=== PATIENT | female | born 1955 | race Caucasian/White ===

== ENCOUNTER 2020-06-02 09:03 | Outpatient (CLI) | payer MEDICARE, MEDICAID, SELFPAY ==
--- NOTE | ~2020-06-02 | XR_ITS ---
XR hip RT min 2V 06/02/2020 09:53 Indication: Right hip pain and pelvic pain Procedure: 3 views right hip Comparison: 11/24/2017 Findings: Mild osteoarthritis of the right hip. Small loose bodies lateral to the joint space. Osteop enia. No fracture or traumatic malalignment. There is moderate lower lumbar spondylosis. Impression: 1: Mild osteoarthritis of the right hip. Reviewed, dictated and finalized at location B. Impression: 1: Mild osteoarthritis of the right hip.
--- NOTE | ~2020-06-02 | US_ITS ---
EXAMINATION: US soft tissue groin RT DATE: 06/02/2020 09:34 INDICATION: Right groin pain TECHNIQUE: Multiple grayscale and Doppler ultrasound images of the right groin were obtained. COMPARISON: None FINDINGS: No abnormal masses, fluid collections or pathologically enlarged lymphadenopathy at the right groin. The right common femoral and proximal superficial femoral artery and veins appeared normal on real-ti me imaging with no evident aneurysm. Normal appearance to the visualized musculature. IMPRESSION: 1. Normal ultrasound of the right groin. No etiology identified for right groin pain. Reviewed, dictated and finalized at location A.
== END 2020-06-02 09:04 | disposition home or self-care (01) ==
PROVIDERS: Visit Provider Physician Assistant
DX: R10.2 Pelvic and perineal pain (principal); M16.11 Unilateral primary osteoarthritis, right hip
CPT/HCPCS: 73502; 76882

== ENCOUNTER 2020-09-01 09:35 | Outpatient (CLI) | payer MEDICARE, MEDICAID, SELFPAY ==
--- NOTE | ~2020-09-01 | MR_ITS ---
EXAMINATION: MR lumbar spine wo con DATE: 09/01/2020 10:50 INDICATION: Chronic bilateral low back pain with bilateral sciatica. TECHNIQUE: Magnetic resonance imaging (MRI) of the lumbar spine was performed without intravenous con trast. Sequences included sagittal T2-weighted FSE, sagittal T2-weighted FS FSE, sagittal T1-weighted FSE, and axial T2-weighted FSE. COMPARISON: Lumbar spine MRI 10/04/2013 FINDINGS: There is 10 degrees dextroscoliosis of lumbar spine. There are chronic bilateral L3 pars de fects. There is 6 mm anterolisthesis of L3 on L4 and 4 mm anterolisthesis of L5 on S1. There are Schm orl's nodes at most levels. There is mildly decreased disc height at T11-T12 and severely decreased d isc height from L3-L4 through L5-S1. The distal spinal cord signal intensity is normal. The conus med ullaris is at L1. There is a 2.8 cm cyst in right kidney. The following disc levels are specifically discussed: T11-T12: There is a central extrusion. There is severe bilateral facet joint osteoarthritis. There is moderate bilateral neural foraminal stenosis. There is mild central canal stenosis with ventral inde ntation of the spinal cord. T12-L1: The disc does not extend beyond the endplate margin. There is mild bilateral facet joint oste oarthritis. There is no neural foraminal stenosis. There is no central canal stenosis. L1-L2: The disc does not extend beyond the endplate margin. There is mild right and moderate left fac et joint osteoarthritis. There is mild left neural foraminal stenosis. There is no central canal sten osis. L2-L3: The disc does not extend beyond the endplate margin. There is moderate bilateral facet joint o steoarthritis. There is no neural foraminal stenosis. There is no central canal stenosis. L3-L4: The disc is bulging and has an annular fissure. There is moderate bilateral facet joint osteoa rthritis. There is moderate bilateral neural foraminal stenosis. There is mild central canal stenosis . L4-L5: The disc is bulging and has an annular fissure. There is severe bilateral facet joint osteoart hritis. There is moderate bilateral neural foraminal stenosis. There is mild central canal stenosis. L5-S1: The disc is bulging and has an annular fissure. There is severe bilateral facet joint osteoart hritis. There is moderate bilateral neural foraminal stenosis. There is mild central canal stenosis. IMPRESSION: 1. Severe lumbar spondylosis. 2. Lumbar dextroscoliosis. 3. Chronic bilateral L3 pars defects with grade 1 anterolisthesis of L3 on L4. Reviewed, dictated and finalized at location A.
== END 2020-09-01 09:36 | disposition home or self-care (01) ==
PROVIDERS: Visit Provider Otolaryngology
DX: M54.42 Lumbago with sciatica, left side (principal); M54.41 Lumbago with sciatica, right side; G89.29 Other chronic pain; M47.816 Spondylosis without myelopathy or radiculopathy, lumbar region; M41.86 Other forms of scoliosis, lumbar region; M43.16 Spondylolisthesis, lumbar region
CPT/HCPCS: 72148

== ENCOUNTER 2021-01-22 10:25 | Outpatient (CLI) | payer MEDICARE, MEDICAID, SELFPAY ==
--- NOTE | ~2021-01-22 | XR_ITS ---
EXAMINATION: XR wrist RT min 3V DATE: 01/22/2021 10:43 INDICATION: Radial sided right wrist pain post injury TECHNIQUE: Posteroanterior, ulnar deviation, oblique, and lateral views of the right wrist were obtai piedad. COMPARISON: none FINDINGS: Bone alignment is normal. No fracture. Mild chondrocalcinosis at the ulnar side of the wrist joint. M ild polyarticular osteoarthritis at the triscaphe, first carpometacarpal, first metacarpophalangeal a nd first interphalangeal joints. Diffuse osteopenia. Soft tissues are unremarkable. IMPRESSION: 1. Mild polyarticular osteoarthritis at the right hand. No acute osseous abnormalities. Reviewed, dictated and finalized at location B. 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 Mild polyarticular osteoarthritis at the right hand. No acute osseous abnorm alities.
== END 2021-01-22 10:26 | disposition home or self-care (01) ==
PROVIDERS: Visit Provider Physician Assistant
DX: M19.041 Primary osteoarthritis, right hand (principal)
CPT/HCPCS: 73110

== ENCOUNTER 2021-03-15 10:06 | Outpatient (CLI) | payer MEDICARE, MEDICAID, SELFPAY ==
--- NOTE | ~2021-03-15 | MM_ITS ---
EXAMINATION: MM screening theresa BI w lupillo HISTORY: Screening mammogram TECHNIQUE: Craniocaudal and mediolateral oblique 3-D tomosynthesis images were obtained and synthetic 2-D images were generated. CAD analysis was submitted and interpreted. COMPARISON: 08/02/2017, 07/20/2016, 07/09/2015 bilateral digital screening mammogram examinations BREAST PARENCHYMAL COMPOSITION: There are scattered areas of fibroglandular density. FINDINGS: Bilateral benign calcifications. There is no evidence of suspicious mass, calcification, or architectural distortion to suggest malignancy in either breast. There has been no suspicious interv al change. IMPRESSION: 1. No mammographic evidence of malignancy. 2. Recommend routine screening mammography in one year. BI-RADS Category 2: Benign finding(s). Reviewed, dictated and finalized at location A.
== END 2021-03-15 10:07 | disposition home or self-care (01) ==
LOC: ANHIMG 10:09
PROVIDERS: Visit Provider Physician Assistant
DX: Z12.31 Encounter for screening mammogram for malignant neoplasm of breast (principal)
CPT/HCPCS: 77063; 77067

== ENCOUNTER 2021-06-10 10:53 | Emergency (ER) | payer MEDICARE, MEDICAID, SELFPAY ==
[2021-06-10 11:00] VITALS: BP 152/84; PULSE 92; RESP 15; TEMP 36.4; O2SAT 99
[2021-06-10 12:03] LABS: Basophils Percent Auto 0.7 % (0.2-1.2); Eosinophils Absolute Auto 0.1 K/mm3 (0-0.3); Eosinophils Percent Auto 1.6 % (0-4.4); Hematocrit 31.4 % (37.0-47.0); Hemoglobin 10.5 g/dL (12.0-15.0); Immature Granulocyte Absolute 0.03 K/mm3 (0.00-0.031); Immature Granulocyte Percent A 0.5 % (0-0.5); Lymphocytes Absolute Auto 1.61 K/mm3 (0.9-3.2); Lymphocytes Percent Auto 28.2 % (18.3-44.2); Mean Corpuscular HGB Conc 33.4 g/dl (32-36); Mean Corpuscular Hemoglobin 31.7 pg (26-34); Mean Corpuscular Volume 94.9 fl (80-100); Mean Platelet Volume 9.1 fl (7.4-10.4); Monocytes Absolute Auto 0.5 K/mm3 (0.1-0.6); Monocytes Percent Auto 8.4 % (2.6-8.5); Neutrophils Absolute Auto 3.5 K/mm3 (1.3-6.7); Neutrophils Percent Auto 60.6 % (45.5-73.1); Platelet Count Result 220 k/mm3 (150-375); Red Blood Count 3.31 M/mm3 (4.2-5.4); Red Cell Distribution Width 14.4 % (11.5-14.5); White Blood Count 5.7 K/mm3 (4.5-10.0)
[2021-06-10 12:05] VITALS: BP 146/95; PULSE 90; RESP 18; TEMP 36.5; O2SAT 99
[2021-06-10 12:16] LABS: Alanine Aminotransferase 17 U/L (4-35); Albumin Level 4.3 g/dL (3.5-5.1); Alkaline Phosphatase 62 U/L (38-126); Anion Gap 9 mmol/L (8-16); Aspartate Amino Transferase 27 U/L (14-36); Bilirubin,Total 0.4 mg/dL (0.2-1.3); Blood Urea Nitrogen 12 mg/dL (7-17); Calcium 9.2 mg/dL (8.4-10.2); Carbon Dioxide 23 mmol/L (22-30); Chloride 108 mmol/L (98-107); Estimated CRCL calculation 65 ml/min; Estimated Glomerular Filt Rate > 60; Glucose 133 mg/dL (65-110); Lipase 28 U/L (23-300); Potassium 4.2 mmol/L (3.4-5.0); Sodium 140 mmol/L (137-145)
[2021-06-10 12:32] LABS: Add Urine Microscopic? YES; Appearance Urine Clear (Clear); Bilirubin Urine Negative (Negative); Blood Urine Negative (Negative); Color Urine Yellow (Yellow); Glucose Urine UA Negative (Negative); Ketones Urine Negative (Negative); Leukocyte Esterase Ur Trace LEU/UL (Negative); Mucus Urine Rare /lpf; Nitrate Urine Negative (Negative); Protein Urine 1+ mg/dL (Negative); RBC Urine 0-2 /hpf (0-2); Specific Grav Ur 1.011 (1.001-1.035); Squamous Epithelial Cell Urine Few /hpf (Few); Urobilinogen Urine Negative mg/dL (<2.0); WBC Urine 0-3 /hpf
--- NOTE | 2021-06-10 13:08 | ED.ABDPAIN ---
HPI - Abdominal Pain General Chief Complaint: Abdominal Pain Stated Complaint: abd cramping, diarrhea Time Seen by Provider: 06/10/21 12:21 Source: patient Mode of arrival: ambulatory Limitations: no limitations History of Present Illness HPI narrative: 66-year-old female Patient complains about a 3-day history of crampy abdominal discomfort and diarrhea No bloody stools, no vomiting Today she is noted that stools are dark-colored but she has taken Pepto-Bismol Related Data Home Medications Medication Instructions Recorded Confirmed alprazolam 06/10/21 aspirin 81 mg PO DAILY 06/10/21 fluticasone propionate [Flonase] INTRANASAL 06/10/21 ipratropium-albuterol [Combivent INHALATION 06/10/21 Respimat] loratadine [Claritin] 10 mg PO DAILY 06/10/21 magnesium oxide mg 06/10/21 omeprazole 20 mg PO DAILY 06/10/21 pyridoxine (vitamin B6) 50 mg PO DAILY 06/10/21 rosuvastatin mg 06/10/21 trazodone 06/10/21 Allergies Allergy/AdvReac Type Severity Reaction Status Date / Time ciprofloxacin Allergy Unknown Rash Verified 06/10/21 12:01 Review of Systems Review of Systems: All systems reviewed & are unremarkable except as noted in HPI and below Constitutional: Constitutional: Reports no additional constitutional complaints, Denies chills, Reports fatigue, Denies fever(s), Denies headache(s) and Reports weakness Eyes: Eyes: Reports no additional eye complaints and Denies change in vision ENT: Denies headache(s) and Denies sore throat Cardiovascular: Cardiovascular: Denies chest pain and Denies dyspnea Respiratory: Respiratory: Denies cough and Denies dyspnea Gastrointestinal: Gastrointestinal: Reports abdominal pain, Reports diarrhea and Denies vomiting Genitourinary: Genitourinary: Denies urinary frequency and Denies dysuria Musculoskeletal: Musculoskeletal: Denies deformity, Denies arthralgias, Denies joint swelling and Denies numbness Integumentary/Breasts: Skin/Breast: Denies rash and Denies wounds Neurologic: Denies headache(s), Denies focal weakness and Denies numbness Psychiatric: Psychiatric: Reports no additional psychiatric complaints Endocrine: Endocrine: Reports no additional endocrine complaints Hematologic/Lymphatic: Hematologic/Lymphatic: Reports no additional hematologic/lymphatic complaints Allergic/Immunologic: Allergic/Immunologic: Reports no additional allergic/immunologic complaints [facility] Past Medical History Medical History (Updated 06/10/21 @ 13:10 by Spencer Scott MD) Anemia Anxiety Arthritis Asthma Bronchitis COPD (chronic obstructive pulmonary disease) DDD (degenerative disc disease) Depression Emphysema of lung GERD (gastroesophageal reflux disease) GI bleed Hepatitis C HTN (hypertension) Liver disease Ovarian cancer Right rotator cuff tear Skin cancer Surgical History Surgical History (Updated 12/13/19 @ 13:13 by Denisse Arroyo) H/O repair of right rotator cuff H/O: hysterectomy History of lumpectomy of left breast Hx of appendectomy Hx of tonsillectomy Family History Family History (Updated 07/17/14 @ 07:13 by DOCTOR UNKNOWN) Mother Family history of malignant neoplasm Family history of heart disease in male family member before age 55 Sibling Family history of malignant neoplasm of brain Father Family history of emphysema Social History Social History Smoking status: Heavy tobacco smoker Second hand tobacco smoke exposure: No Alcohol intake: current Gender identity (if verbalized by the patient): Female Exam Const: General: cooperative, no acute distress and alert Orientation/consciousness: patient oriented x3 (alert) HENMT: Head: normal to inspection, normocephalic and atraumatic Ears: external ears normal General nose exam: no epistaxis Eyes: Conjunctivae: conjunctivae normal EOM: EOMs intact bilaterally Neck: Neck: normal visual inspection, supple and no J
[2021-06-10 13:54] VITALS: BP 155/86; PULSE 88; RESP 16; O2SAT 100
[2021-06-10] MEDS: HEPARIN SODIUM LOCK FLUSH 500 UNITS/5 ML VIAL (13:59)
== END 2021-06-10 14:13 | disposition home or self-care (01) ==
PROVIDERS: Emergency Medicine; Emergency Provider Emergency Medicine
DX: R19.7 Diarrhea, unspecified (principal); D64.9 Anemia, unspecified; M19.90 Unspecified osteoarthritis, unspecified site; J43.9 Emphysema, unspecified; K21.9 Gastro-esophageal reflux disease without esophagitis; I10 Essential (primary) hypertension; K76.9 Liver disease, unspecified; F41.9 Anxiety disorder, unspecified; F32.9 Major depressive disorder, single episode, unspecified; F17.200 Nicotine dependence, unspecified, uncomplicated; Z85.828 Personal history of other malignant neoplasm of skin; Z85.43 Personal history of malignant neoplasm of ovary; Z86.19 Personal history of other infectious and parasitic diseases; Z79.82 Long term (current) use of aspirin
CPT/HCPCS: 36415; 80053; 81001; 83690; 85025; 99283; J1642

== ENCOUNTER 2021-07-19 01:17 | Day surgery (SDC) | payer MEDICARE, MEDICAID, SELFPAY ==
[2021-07-07 13:13] VITALS: BMI 22.7
--- NOTE | 2021-07-19 08:20 | WPDANESEPPF ---
Anes - Initial Pre Proc Eval Procedure: Operation Date: 07/19/21 12:00 Proposed Procedures p Colonoscopy - Mark Meyer MD Date/Time: 07/19/21 08:20 Surgeon: Mark Meyer MD Pre Op Diagnosis: rectal bleed Patient Data Age: 66 Gender: F Height: 1.68 m Weight: 64 kg Allergies Allergy/AdvReac Type Severity Reaction Status Date / Time ciprofloxacin Allergy Unknown Rash Verified 07/19/21 10:29 Home Medications Medication Instructions Recorded Confirmed Type alprazolam 1 mg PO TID 06/10/21 07/07/21 History aspirin 81 mg PO DAILY 06/10/21 07/07/21 History fluticasone propionate [Flonase] INTRANASAL PRN PRN 06/10/21 History ipratropium-albuterol [Combivent puff INHALATION DAILY 06/10/21 History Respimat] loratadine [Claritin] 10 mg PO DAILY 06/10/21 07/07/21 History magnesium oxide 400 mg PO BID 06/10/21 07/07/21 History omeprazole 20 mg PO DAILY 06/10/21 07/07/21 History pyridoxine (vitamin B6) 100 mg PO DAILY 06/10/21 07/07/21 History rosuvastatin 5 mg PO DAILY 06/10/21 07/07/21 History trazodone 50 mg PO DAILY 06/10/21 07/07/21 History Patient hx anesthesia problems: none Family hx anesthesia problems: none PMFSH Past Medical History Medical History (Updated 07/19/21 @ 08:21 by Hebert Casiano DO) Anemia Anxiety Arthritis Asthma Bronchitis COPD (chronic obstructive pulmonary disease) DDD (degenerative disc disease) Depression Emphysema of lung GERD (gastroesophageal reflux disease) GI bleed Hepatitis C treated 2007 HTN (hypertension) Liver disease Ovarian cancer Right rotator cuff tear Skin cancer Surgical History Surgical History (Updated 12/13/19 @ 13:13 by Denisse Arroyo) H/O repair of right rotator cuff H/O: hysterectomy History of lumpectomy of left breast Hx of appendectomy Hx of tonsillectomy Family History Family History (Updated 07/17/14 @ 07:13 by DOCTOR UNKNOWN) Mother Family history of malignant neoplasm Family history of heart disease in male family member before age 55 Sibling Family history of malignant neoplasm of brain Father Family history of emphysema Social History Social History Years smoked: 55 Smoking status: Current every day smoker Tobacco type: cigarettes Second hand tobacco smoke exposure: No Alcohol intake: current Alcohol use details: socially Substance use: current Substance use type: marijuana Other substance usage details: couple times a week Living arrangements: alone Gender identity (if verbalized by the patient): Female Spiritual care concerns: No Anes - Eval Final PreProcedure Day of Procedure 07/19/21 08:20 Patient weight: normal Heart: regular rate and rhythm Lungs: clear to auscultation and normal air movement Airway: Mallampati scale class II Neurological: alert and oriented Last oral intake: >/= 8 hours ASA classification: III Emergent: no Anesthetic plan: proceed Anesthesia type and monitoring: general GIVS and standard monitoring Informed Consent: The patient's anesthetic plan and its attendant risks and benefits were discussed with the patient/family/POA. Questions were solicited and answers provided to the satisfaction of the patient/family/POA.
[2021-07-19 10:31] VITALS: BP 144/79; PULSE 76; RESP 26; TEMP 36.3; O2SAT 98; BMI 22.8
[2021-07-19] MEDS: LACTATED RINGERS 1,000 ML 150 ML IV CONT (10:54)
--- NOTE | 2021-07-19 11:30 | PM.HPGS ---
History of Present Illness History of Present Illness Consent: Risks, benefits, and alternatives have been discussed and questions answered. Patient agrees to proceed with procedure. Chief complaint: rectal bleed Narrative: Myriam Martinez is a 66 year old female Referred for colonoscopy because of rectal bleeding Review of Systems Review of Systems: All systems reviewed & are unremarkable except as noted in HPI and below PMFSH Past Medical History Medical History Anemia Anxiety Arthritis Asthma Bronchitis COPD (chronic obstructive pulmonary disease) DDD (degenerative disc disease) Depression Emphysema of lung GERD (gastroesophageal reflux disease) GI bleed Hepatitis C treated 2007 HTN (hypertension) Liver disease Ovarian cancer Right rotator cuff tear Skin cancer Surgical History Surgical History H/O repair of right rotator cuff H/O: hysterectomy History of lumpectomy of left breast Hx of appendectomy Hx of tonsillectomy Family History Family History Mother Family history of malignant neoplasm Family history of heart disease in male family member before age 55 Sibling Family history of malignant neoplasm of brain Father Family history of emphysema Social History Social History Years smoked: 55 Smoking status: Current every day smoker Tobacco type: cigarettes Second hand tobacco smoke exposure: No Alcohol intake: current Alcohol use details: socially Substance use: current Substance use type: marijuana Other substance usage details: couple times a week Living arrangements: alone Gender identity (if verbalized by the patient): Female Spiritual care concerns: No Meds Home Medications and Allergies Home Medications Medication Instructions Recorded Confirmed Type alprazolam 1 mg PO TID 06/10/21 07/07/21 History aspirin 81 mg PO DAILY 06/10/21 07/07/21 History fluticasone propionate [Flonase] INTRANASAL PRN PRN 06/10/21 History ipratropium-albuterol [Combivent puff INHALATION DAILY 06/10/21 History Respimat] loratadine [Claritin] 10 mg PO DAILY 06/10/21 07/07/21 History magnesium oxide 400 mg PO BID 06/10/21 07/07/21 History omeprazole 20 mg PO DAILY 06/10/21 07/07/21 History pyridoxine (vitamin B6) 100 mg PO DAILY 06/10/21 07/07/21 History rosuvastatin 5 mg PO DAILY 06/10/21 07/07/21 History trazodone 50 mg PO DAILY 06/10/21 07/07/21 History Allergies Allergy/AdvReac Type Severity Reaction Status Date / Time ciprofloxacin Allergy Unknown Rash Verified 07/19/21 10:29 Vital Signs Vital Signs - 24 hr 07/19/21 10:31 Temperature 36.3 C L Pulse Rate 76 Respiratory Rate 26 H Blood Pressure 144/79 H Pulse Oximetry 98 Exam Const: General: alert Orientation/consciousness: patient oriented x3 Resp: Auscultation: clear to auscultation bilaterally Cardio: Rhythm: regular rhythm GI: GI Palp: Yes Soft to palpation and No Tenderness to palpation present (GI) Neuro: General: patient oriented x3 Assessment and Plan Assessment and plan (1) Blood in stool: Code(s): K92.1 - Melena Status: Acute Assessment and Plan: EGD with possible biopsy or dilatation or cautery. (2) Colon cancer screening: Code(s): Z12.11 - Encounter for screening for malignant neoplasm of colon Status: Acute Assessment and Plan: Colonoscopy with possible biopsy or polypectomy or cautery or injection of substances.
[2021-07-19 12:02] VITALS: BP 108/72; PULSE 74; RESP 18; O2SAT 97
[2021-07-19 12:12] VITALS: BP 125/78; PULSE 68; RESP 18; O2SAT 97
[2021-07-19 12:22] VITALS: BP 138/96; PULSE 74; RESP 22; O2SAT 100
[2021-07-19] MEDS: HEPARIN SODIUM LOCK FLUSH 500 UNITS/5 ML VIAL IV PUSH (12:54)
[2021-07-19] MEDS: CENTRAL LINE FLUSH 10 ML IV PUSH (12:55)
== END 2021-07-19 13:00 | disposition home or self-care (01) ==
PROVIDERS: PCP Physician Assistant; Visit Provider Internal Medicine Gastroenterology
PROC: 0DJD8ZZ Inspection of Lower Intestinal Tract, Via Natural or Artificial Opening Endoscopic (ICD-10-PCS; CPT 45378; principal; 2021-07-19 12:00)
DX: Z12.11 Encounter for screening for malignant neoplasm of colon (principal); K62.1 Rectal polyp; K92.1 Melena; D64.9 Anemia, unspecified; F41.8 Other specified anxiety disorders; J45.909 Unspecified asthma, uncomplicated; J44.9 Chronic obstructive pulmonary disease, unspecified; K21.9 Gastro-esophageal reflux disease without esophagitis; Z86.19 Personal history of other infectious and parasitic diseases; I10 Essential (primary) hypertension; F17.210 Nicotine dependence, cigarettes, uncomplicated; F12.90 Cannabis use, unspecified, uncomplicated; Z79.82 Long term (current) use of aspirin
CPT/HCPCS: 45380; 88305; J1642; J2704; J7120

== ENCOUNTER 2021-10-05 09:21 | Emergency (ER) | payer MEDICARE, MEDICAID, SELFPAY ==
--- NOTE | ~2021-10-05 | CT_ITS ---
EXAMINATION: CT abdomen pelvis w con DATE: 10/05/2021 10:47 INDICATION: Left-sided abdominal pain TECHNIQUE: Computed tomography (CT) of the abdomen and pelvis was performed with 100 cc Omnipaque 350 intravenous contrast. Automated exposure control and iterative reconstruction technique were employe d. Exam dose: 410.43 mGy-cm total exam DLP. COMPARISON: 09/30/2018 CT abdomen pelvis FINDINGS: Emphysematous changes are noted in the lower lung zones. No infiltrate or consolidation of the included lower lung zones. Normal heart size. There is trace pericardial fluid. No hepatic space-occupying mass lesion is detected. The gallbladder is present. No bile duct dilatati on. Normal splenic size. No pancreatic mass lesion, calcification or ductal dilatation. Normal morphology of the adrenal glands. 2.8 cm upper pole right renal cyst. No renal mass lesion or urinary tract calculus or hydroureteronep hrosis is detected. Normal caliber and atherosclerotic calcification of the abdominal aorta. No intraperitoneal or retrop eritoneal or pelvic mass lesion or adenopathy or ascites. There is minimal diverticulosis of left colon. There is no evidence of diverticulitis. No bowel obstr uction or intraperitoneal free air. There is grade 1 anterolisthesis at L3-4 with pars interarticularis defect at this level. There is severe degenerative disease at L3-4, L4-5 and L5-S1. Bilateral hip osteoarthritis. IMPRESSION: 2.8 cm right renal cyst Minimal left colon diverticulosis Emphysema Reviewed, dictated and finalized at Location A. Reviewed, dictated and finalized at location A. 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
--- NOTE | ~2021-10-05 | XR_ITS ---
EXAMINATION: XR foot RT min 3V, XR ankle RT min 3V EXAM DATE: 10/05/2021 10:55 INDICATION: Hyperflexion injury, initial encounter. Right foot, ankle pain laterally. TECHNIQUE: Right foot dorsoplantar, lateral and oblique projections obtained and reviewed. Right ank le frontal, lateral and oblique projections obtained and reviewed. There is no prior study for grace carlton. FINDINGS: Right metatarsal bones unremarkable. The right ankle mortise appears intact. There are n o acute fractures or dislocations identified. There is no subcutaneous gas. The soft tissue is unre markable. There are no radiopaque foreign bodies. Sequela from prior lateral malleolar avulsion in [facility]. There is mild polyarticular primary osteoarthritis. IMPRESSION: No acute osseous findings. Reviewed, dictated and finalized at location B. 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 IMPRESSION: No acute osseous findings.
[2021-10-05 09:25] VITALS: BP 145/106; PULSE 105; RESP 18; TEMP 36.4; O2SAT 100
[2021-10-05 09:40] LABS: Basophils Absolute Auto 0.1 K/mm3 (0.0-0.1); Basophils Percent Auto 0.5 % (0.2-1.2); Eosinophils Absolute Auto 0.2 K/mm3 (0-0.3); Eosinophils Percent Auto 1.5 % (0-4.4); Hemoglobin 12.4 g/dL (12.0-15.0); Immature Granulocyte Absolute 0.04 K/mm3 (0.00-0.031); Immature Granulocyte Percent A 0.4 % (0-0.5); Lymphocytes Absolute Auto 2.18 K/mm3 (0.9-3.2); Lymphocytes Percent Auto 22.5 % (18.3-44.2); Mean Corpuscular HGB Conc 33.5 g/dl (32-36); Mean Corpuscular Hemoglobin 31.1 pg (26-34); Mean Corpuscular Volume 92.7 fl (80-100); Mean Platelet Volume 9.2 fl (7.4-10.4); Monocytes Absolute Auto 0.6 K/mm3 (0.1-0.6); Monocytes Percent Auto 6.3 % (2.6-8.5); Neutrophils Absolute Auto 6.7 K/mm3 (1.3-6.7); Neutrophils Percent Auto 68.8 % (45.5-73.1); Platelet Count Result 213 k/mm3 (150-375); Red Blood Count 3.99 M/mm3 (4.2-5.4); Red Cell Distribution Width 13.2 % (11.5-14.5); White Blood Count 9.7 K/mm3 (4.5-10.0)
[2021-10-05 10:09] LABS: Alanine Aminotransferase 17 U/L (4-35); Albumin Level 4.8 g/dL (3.5-5.1); Alkaline Phosphatase 64 U/L (38-126); Anion Gap 10 mmol/L (8-16); Aspartate Amino Transferase 26 U/L (14-36); Bilirubin,Total 0.6 mg/dL (0.2-1.3); Blood Urea Nitrogen 14 mg/dL (7-17); Calcium 10.1 mg/dL (8.4-10.2); Carbon Dioxide 26 mmol/L (22-30); Chloride 106 mmol/L (98-107); Estimated CRCL calculation 65 ml/min; Estimated Glomerular Filt Rate > 60; Glucose 113 mg/dL (65-110); Lipase 22 U/L (23-300); Potassium 3.7 mmol/L (3.4-5.0); Sodium 142 mmol/L (137-145)
[2021-10-05 10:14] LABS: Add Urine Microscopic? YES; Appearance Urine Cloudy (Clear); Bilirubin Urine Negative (Negative); Blood Urine Negative (Negative); Color Urine Yellow (Yellow); Glucose Urine UA Negative (Negative); Ketones Urine Negative (Negative); Leukocyte Esterase Ur Trace LEU/UL (Negative); Mucus Urine Rare /lpf; Nitrate Urine Negative (Negative); Protein Urine 1+ mg/dL (Negative); Specific Grav Ur 1.017 (1.001-1.035); Squamous Epithelial Cell Urine Few /hpf (Few); Urobilinogen Urine Negative mg/dL (<2.0); WBC Urine 0-3 /hpf
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
== END 2021-10-05 12:27 | disposition home or self-care (01) ==
PROVIDERS: Emergency Provider Emergency Medicine; PCP Physician Assistant
DX: R10.12 Left upper quadrant pain (principal); S93.401A Sprain of unspecified ligament of right ankle, initial encounter; J43.9 Emphysema, unspecified; I10 Essential (primary) hypertension; K76.9 Liver disease, unspecified; M19.90 Unspecified osteoarthritis, unspecified site; K21.9 Gastro-esophageal reflux disease without esophagitis; F41.9 Anxiety disorder, unspecified; Z85.43 Personal history of malignant neoplasm of ovary; Z85.828 Personal history of other malignant neoplasm of skin; Z86.19 Personal history of other infectious and parasitic diseases; Z86.2 Personal history of diseases of the blood and blood-forming organs and certain disorders involving the immune mechanism; Z79.82 Long term (current) use of aspirin; F17.210 Nicotine dependence, cigarettes, uncomplicated; K57.90 Diverticulosis of intestine, part unspecified, without perforation or abscess without bleeding; V00.812A Wheelchair (powered) colliding with stationary object, initial encounter
CPT/HCPCS: 36415; 73610; 73630; 74177; 80053; 81001; 83690; 85025; 99284; Q9967

== ENCOUNTER 2021-10-18 12:07 | Inpatient (IN) | payer MEDICARE, MEDICAID, SELFPAY ==
--- NOTE | ~2021-10-18 | XR_ITS ---
EXAMINATION: XR chest 2V 10/18/2021 13:07 INDICATION: Cough and headache PROCEDURE: 2 view chest COMPARISON: Comparison to multiple prior studies sequentially, with oldest reviewed study dated 09/21. FINDINGS: The lungs are clear. The cardiomediastinal silhouette is within normal limits. There are no pleural effusions. There is no pneumothorax suspected. Port catheter tip in the SVC. IMPRESSION: 1: NO ACUTE CARDIOPULMONARY DISEASE. Reviewed, dictated and finalized at location B. M INVESTIGATOR
--- NOTE | ~2021-10-18 | CT_ITS ---
EXAMINATION: CT diagnostic chest wo con EXAM DATE: 10/20/2021 11:30 INDICATION: Positive blood culture. TECHNIQUE: Spiral CT of the chest without contrast. Axial, coronal and sagittal images of the chest were reviewed. Coronal maximum intensity pixel images of chest reviewed. The dose-length product ( DLP) for this examination was 160.61 mGy-cm. The exposure was tailored according to patient size (au to mA exposure control), and iterative reconstruction (ASIR) was used as additional dose reduction te chnique. Comparison is made to prior examination from 10/13/2017. FINDINGS: Small amount of right upper lobe medially located airspace disease which could be acute in fectious process, subsegmental bacterial pneumonia. There is some dependent atelectasis. Small perica rdial and bilateral pleural effusions. Tracheobronchial tree is patent. There is no mediastinal, h ilar or axillary lymphadenopathy. There is no pneumothorax. Heart normal in size. There is mode rate coronary arterial calcification, arterial sclerosis. Upper abdomen is unremarkable. There is moderate thoracic spondylosis without osteoblastic or osteolytic lesions identified. There is a lef t-sided portacatheter. IMPRESSION: 1. Right upper lobe medial subsegmental airspace disease which could be acute bacterial pneumonia. 2. Small pleural and pericardial effusions. 3. Moderate emphysema. Reviewed, dictated and finalized at location A. Y TECHNICIAN
--- NOTE | ~2021-10-18 | XR_ITS ---
EXAMINATION: XR chest PICC line INDICATION: PICC insertion TECHNIQUE: Portable AP view the chest is obtained at 1715 hours COMPARISON: 10/18/2021 FINDINGS: The left-sided Port-A-Cath has been removed. A left upper showed a PICC ends with its tip i n the brachiocephalic vein. The lungs are free of acute opacities. There is no pleural effusion or pn eumothorax. The cardiomediastinal silhouette is normal. IMPRESSION: 1. Right upper extremity PICC ending with its tip in the brachiocephalic vein. 2. Left-sided port removal. Reviewed, dictated and finalized at location A. OR GIS ANALYST
--- NOTE | ~2021-10-18 | CT_ITS ---
EXAMINATION: CT abdomen pelvis wo con EXAM DATE: 10/19/2021 10:19 INDICATION: Sepsis. TECHNIQUE: Spiral CT of the abdomen and pelvis was performed without contrast. Axial, coronal and s agittal images of the abdomen and pelvis were reviewed. The dose-length product (DLP) for this exami nation was 279.26 mGy-cm. The exposure was tailored according to patient size (auto mA exposure cont rol), and iterative reconstruction (ASIR) was used as additional dose reduction technique. Comparison is made to prior examination from 10/05/2021. FINDINGS: The liver, spleen, adrenal glands and pancreas are unremarkable. Gallbladder is unremarkab le. No biliary obstruction. There is no nephrolithiasis or hydronephrosis. There is a 3 cm cyst in the superior pole of the right kidney. Punctate left nephrolithiasis superior calyx. The uterus is n ot identified and has likely been surgically resected. The bladder is unremarkable. There is no ret roperitoneal or pelvic lymphadenopathy. Small supraumbilical fat-containing hernias. Appendix not identified, could've been resected. The stomach and small bowel are unremarkable. Ther e is expected amount of colonic stool. No free intraperitoneal gas. Trace pleural and pericardial effusions. Heart normal in size. Mild basilar emphysema. Moderate to severe disc disease L3-S1. The re are no osteoblastic or osteolytic lesions identified. IMPRESSION: 1. No acute intra-abdominal findings. 2. Punctate left nephrolithiasis. 3. Small supraumbilical fat-containing hernias. 4. Trace pleural or pericardial effusions. 5. Mild emphysema. Reviewed, dictated and finalized at location A. LE DISTRIBUTOR
--- NOTE | ~2021-10-18 | XR_ITS ---
EXAMINATION: XR chest PICC line EXAM DATE: 10/26/2021 17:53 INDICATION: PICC line insertion. TECHNIQUE: Portable AP frontal chest x-ray was obtained. Comparison is made to prior examination from 10/26/2021. FINDINGS: Interval insertion of a right-sided PICC line, extending down the SVC, expected orientation . The tip is poorly visualized but at least to the level of the herbie, adequate. Development of ill-defined density over the right lower lung zone, could be developing pneumonia or e alyce. Please clinically correlate. The cardiomediastinal silhouette is prominent but magnified on thi s AP technique. There is aortic arteriosclerosis. There is no pneumothorax suspected. There are no pl eural effusions. IMPRESSION: 1. PICC line in position. 2. Developing right lower lung zone airspace disease suspicious for pneumonia. Reviewed, dictated and finalized at location A. O REGULATOR
[2021-10-18 12:07] VITALS: BP 170/100; PULSE 88; RESP 16; TEMP 36.5; O2SAT 97
[2021-10-18 12:55] LABS: Basophils Absolute Auto 0.1 K/mm3 (0.0-0.1); Basophils Percent Auto 0.3 % (0.2-1.2); Eosinophils Percent Auto 0.1 % (0-4.4); Hematocrit 39.1 % (37.0-47.0); Hemoglobin 13.2 g/dL (12.0-15.0); Immature Granulocyte Absolute 0.21 K/mm3 (0.00-0.031); Lymphocytes Absolute Auto 0.93 K/mm3 (0.9-3.2); Lymphocytes Percent Auto 4.4 % (18.3-44.2); Mean Corpuscular HGB Conc 33.8 g/dl (32-36); Mean Corpuscular Volume 94.7 fl (80-100); Mean Platelet Volume 9.5 fl (7.4-10.4); Monocytes Absolute Auto 0.9 K/mm3 (0.1-0.6); Monocytes Percent Auto 4.1 % (2.6-8.5); Neutrophils Absolute Auto 19.3 K/mm3 (1.3-6.7); Neutrophils Percent Auto 90.1 % (45.5-73.1); Platelet Count Result 193 k/mm3 (150-375); Red Blood Count 4.13 M/mm3 (4.2-5.4); Red Cell Distribution Width 13.8 % (11.5-14.5); White Blood Count 21.4 K/mm3 (4.5-10.0)
--- NOTE | 2021-10-18 12:58 | ED.PSYCH ---
HPI - Psych General Chief Complaint: Psychiatric Symptoms Stated Complaint: headache Time Seen by Provider: 10/18/21 12:26 History of Present Illness HPI Narrative: Patient is a 66-year-old female who presents ER with multiple complaints. Patient was seen by her PCP today and referred to the ER because she reports that she is depressed and has thoughts of taking her own life. Patient reports to me that she has had thoughts of taking her own life chronically. She had recently been on Seroquel but it was making her feel off in the head so her therapist discontinued the medication. Patient reports she takes her other medication as prescribed including Xanax and trazodone. Patient denies any new stressors. She reports she has no intention on taking her own life and knows is wrong. Reports she has not been hospitalized for her mental health. Patient reports these feelings are causing her to have a throbbing global headache. No numbness or tingling beyond her typical neuropathy. She also reports she has had some cough which is causing her some left-sided chest wall pain. Endorses temperature of 101 ?F last night but is afebrile here. Reports she has been having some muscle aches and cramps in her shoulders. Related Data Home Medications Medication Instructions Recorded Confirmed Combivent Respimat 2 puff INHALATION DAILY PRN 06/10/21 10/18/21 alprazolam 1 mg PO TID 06/10/21 10/18/21 fluticasone propionate 1 spray INTRANASAL PRN PRN 06/10/21 10/18/21 loratadine [Claritin] 10 mg PO DAILY PRN 06/10/21 10/18/21 magnesium oxide 400 mg PO BID 06/10/21 10/18/21 omeprazole 20 mg PO DAILY 06/10/21 10/18/21 pyridoxine (vitamin B6) 100 mg PO DAILY 06/10/21 10/18/21 rosuvastatin 5 mg PO DAILY 06/10/21 10/18/21 trazodone 50 mg PO DAILY 06/10/21 10/18/21 cholecalciferol (vitamin D3) 1,000 mcg PO DAILY 10/18/21 10/18/21 Allergies Allergy/AdvReac Type Severity Reaction Status Date / Time ciprofloxacin Allergy Unknown Rash Verified 10/18/21 12:20 Review of Systems Review of Systems: All systems reviewed & are unremarkable except as noted in HPI and below Constitutional: Constitutional: Denies chills, Denies fever(s) and Denies weakness Eyes: Eyes: Denies change in vision and Denies photophobia ENT: Denies dizziness, Denies nasal congestion and Denies sore throat Cardiovascular: Cardiovascular: Reports chest pain, Denies rapid heart rate and Denies radiating jaw, neck or arm pain Respiratory: Respiratory: Reports cough, Denies dyspnea and Denies wheezing Gastrointestinal: Gastrointestinal: Denies abdominal pain, Denies nausea and Denies vomiting Neurologic: Denies dizziness, Reports headache(s), Denies focal weakness and Denies numbness Psychiatric: Psychiatric: Reports anxiety, Reports depression, Denies homicidal ideation and Reports suicidal ideation [facility] Past Medical History Medical History (Updated 10/18/21 @ 23:34 by Carlitos Gonzales MD) Anemia Anxiety Arthritis Asthma Chronic obstructive pulmonary disease Degenerative disc disease Depression Emphysema of lung Gastroesophageal reflux disease GI bleed Hepatitis C Treated in 2007. Hypertension Liver disease Ovarian cancer Right rotator cuff tear Skin cancer Surgical History Surgical History (Updated 10/18/21 @ 14:31 by Mary Rashid PA-C) History of appendectomy History of hysterectomy History of lumpectomy of left breast History of open reduction and internal fixation (ORIF) procedure Ankle fracture. History of tonsillectomy S/P right rotator cuff repair Family History Family History Mother Family history of malignant neoplasm Family history of heart disease in male family member before age 55 Sibling Family history of malignant neoplasm of brain Father Family history of emphysema Social History Social History Years smoked: 55 Smoki
[2021-10-18 13:03] LABS: Add Urine Microscopic? YES; Appearance Urine Cloudy (Clear); Bilirubin Urine Negative (Negative); Blood Urine Negative (Negative); Color Urine Yellow (Yellow); Glucose Urine UA Negative (Negative); Ketones Urine Negative (Negative); Leukocyte Esterase Ur Trace LEU/UL (Negative); Mucus Urine Rare /lpf; Nitrate Urine Negative (Negative); Protein Urine 2+ mg/dL (Negative); RBC Urine 0-2 /hpf (0-2); Specific Grav Ur 1.018 (1.001-1.035); Squamous Epithelial Cell Urine Moderate /hpf (Few); Urobilinogen Urine Negative mg/dL (<2.0)
[2021-10-18 13:07] LABS: Alanine Aminotransferase 18 U/L (4-35); Albumin Level 5.2 g/dL (3.5-5.1); Alkaline Phosphatase 81 U/L (38-126); Anion Gap 10 mmol/L (8-16); Aspartate Amino Transferase 28 U/L (14-36); Bilirubin,Total 0.6 mg/dL (0.2-1.3); Blood Urea Nitrogen 19 mg/dL (7-17); Calcium 10.5 mg/dL (8.4-10.2); Carbon Dioxide 28 mmol/L (22-30); Chloride 99 mmol/L (98-107); Estimated CRCL calculation 35 ml/min; Estimated Glomerular Filt Rate 41; Glucose 113 mg/dL (65-110); Potassium 4.2 mmol/L (3.4-5.0); Sodium 137 mmol/L (137-145)
[2021-10-18] MEDS: KETOROLAC 30 MG/ML VIAL (*BKC) IV PUSH (13:16)
[2021-10-18] MEDS: SODIUM CHLORIDE 0.9% IV 1,000 ML 999 ML IV CONT (13:55)
[2021-10-18 15:40] LABS: Ethanol < 10 mg/dL (<10)
[2021-10-18 15:55] LABS: Amphetamine Screen Urine Negative (Negative); Barbiturate Screen Urine Negative (Negative); Benzodiazepines Screen Urine Positive (Negative); Cannabinoid Screen Urine Positive (Negative); Cocaine Screen Urine Negative (Negative); Methadone Screen Urine Negative (Negative); Opiate Screen Urine Negative (Negative); Phencyclidine Screen Urine Negative (Negative)
--- NOTE | 2021-10-18 16:15 | PM.IMHP ---
H&P: HPI History of Present Illness Date/Time: 10/18/21 16:15 Chief Complaint: Multiple complaints. Narrative: This is a pleasant 66-year-old female smoker with COPD, dyslipidemia, depression, anxiety, and history of ovarian cancer who presented to the emergency department earlier today via EMS from her primary care provider's office for evaluation of multiple complaints. She has been suffering from anxiety and depression for quite some time given some family turmoil and she was started on Seroquel approximately 3 weeks ago although it made her feel ?off? and she stopped taking it after a week or so. Unfortunately she says she still just does not feel like herself and she admits to thinking about suicide in passing over the last several weeks though she is not suicidal and she does not have a plan. She had an appointment today to discuss her issues with Seroquel and at that time she had mentioned that she has been having a headache since last night in addition to rigors and a temperature up to 101.3? and she was thus sent to the emergency department for evaluation. She has been afebrile since arrival to the emergency department her vital signs have been stable. She was found to have an elevated white blood cell count of 21.4 with a neutrophil predominance as well as an increase in BUN and creatinine from baseline. With further questioning she does mention that she has probably not been eating or drinking as well due to her depression. She denies nausea, vomiting, diarrhea, dysuria, neck pain, sore throat, sinus congestion, and cough. Has not noticed any rashes or lesions. She denies sick contacts. Of note the patient has a left chest Port-A-Cath which was used for chemotherapy when she had ovarian cancer and it was accessed approximately 3 weeks ago for blood draw for the 1st time in quite some time. She has no pain or redness around this area, however. Review of Systems Review of Systems: Twelve systems were reviewed. Weight has remained stable. She denies dysphagia. No chest pain, pleuritic pain, or shortness of breath. She denies suicidal thoughts at this time and suicidal and homicidal ideations. She has a friend Vidya who she enjoys spending time within it sounds like sure and really is her only support system. She has not spoken with her son or grandson for quite some time due to tense relations between her and her sons significant other. This is where most of her depression stems from. Except as documented, all other systems were reviewed and are negative. [facility] Past Medical History Medical History (Updated 10/18/21 @ 23:49 by Mary Rashid PA-C) Anemia Anxiety Arthritis Asthma Chronic obstructive pulmonary disease Degenerative disc disease Depression Emphysema of lung Gastroesophageal reflux disease Hepatitis C Treated in 2007. Hypertension Ovarian cancer Peripheral neuropathy due to chemotherapy Skin cancer Tobacco dependence Surgical History Surgical History (Updated 10/18/21 @ 23:45 by Mary Rashid PA-C) History of appendectomy History of hysterectomy History of lumpectomy of left breast History of open reduction and internal fixation (ORIF) procedure Ankle fracture. History of repair of right rotator cuff History of tonsillectomy Family History Family History Mother Family history of malignant neoplasm Family history of heart disease in male family member before age 55 Sibling Family history of malignant neoplasm of brain Father Family history of emphysema Social History Social History (Updated 10/18/21 @ 23:46 by Mary Rashid PA-C) Social History: Surrogate decision maker: Sai Martinez, son. Code status: Full code. Smoking packs per day: 1 Smoking cigarettes per day: 20.0 Years smoked: 55 Smoking pack-years: 55.00 Smoking status: Current every day smoker Tobacco type: cigarettes Second hand tobacco smoke exposure: No
[2021-10-18] MEDS: MORPHINE SULFATE (*CRX) 4 MG/ML INJ IV PUSH ×2 (16:20→21:17)
[2021-10-18 16:40] VITALS: BP 117/77; PULSE 100; RESP 16; O2SAT 98
[2021-10-18 17:07] VITALS: BP 110/89; PULSE 112; RESP 18; TEMP 36.3; O2SAT 100
--- NOTE | 2021-10-18 17:32 | ADMGEN ---
This patient, Myriam Martinez, was admitted to Medical Room 347-01. Patient/family oriented to hospital policies and general routines including ID bracelet, bed and alarms, visiting hours, pain management, procedures, bathroom and other care routines, personal items, smoking policy, room service/diet, and visiting hours. Information on how to activate the Rapid Response Team has been discussed. Patient/Family are encouraged to report perceived risks to care and to ask questions if they do not understand what they are told or what they should do.
[2021-10-18 17:34] VITALS: BMI 23.3
[2021-10-18] MEDS: HYDROcodone/acetaminophen (*CRX) 5-325 MG TABLET 1 TAB PO (17:56)
[2021-10-18] MEDS: SODIUM CHLORIDE 0.9% IV 1,000 ML 125 ML IV CONT (17:57)
[2021-10-18 21:07] VITALS: BP 110/65; PULSE 99; RESP 18; TEMP 37.1; O2SAT 94
[2021-10-19] MEDS: HYDROcodone/acetaminophen (*CRX) 5-325 MG TABLET 1 TAB PO ×4 (02:54→20:10)
[2021-10-19] MEDS: SODIUM CHLORIDE 0.9% IV 1,000 ML 75 ML IV CONT ×2 (03:09→18:20)
[2021-10-19] MEDS: LORATADINE 10 MG TABLET PO (03:10)
[2021-10-19] MEDS: FLUTICASONE PROPIONATE 0.05% NA SPR 16 GM BTL (*BKC) 1 SPRAY NASAL (03:10)
[2021-10-19 05:38] VITALS: BP 111/66; PULSE 113; RESP 20; TEMP 36.1; O2SAT 99
[2021-10-19 06:20] LABS: Basophils Percent Auto 0.2 % (0.2-1.2); Eosinophils Percent Auto 0.2 % (0-4.4); Hematocrit 31.1 % (37.0-47.0); Hemoglobin 10.3 g/dL (12.0-15.0); Immature Granulocyte Absolute 0.21 K/mm3 (0.00-0.031); Immature Granulocyte Percent A 1.7 % (0-0.5); Immature Platelet Fraction Pct 3.2 % (0.9-11.2); Lymphocytes Absolute Auto 0.69 K/mm3 (0.9-3.2); Lymphocytes Percent Auto 5.6 % (18.3-44.2); Mean Corpuscular HGB Conc 33.1 g/dl (32-36); Mean Corpuscular Hemoglobin 32.2 pg (26-34); Mean Corpuscular Volume 97.2 fl (80-100); Mean Platelet Volume 9.5 fl (7.4-10.4); Monocytes Absolute Auto 0.4 K/mm3 (0.1-0.6); Monocytes Percent Auto 3.4 % (2.6-8.5); Neutrophils Absolute Auto 10.9 K/mm3 (1.3-6.7); Neutrophils Percent Auto 88.9 % (45.5-73.1); Platelet Count Result 159 k/mm3 (150-375); Red Cell Distribution Width 14.1 % (11.5-14.5); White Blood Count 12.3 K/mm3 (4.5-10.0)
[2021-10-19 06:27] LABS: Alanine Aminotransferase 15 U/L (4-35); Albumin Level 3.7 g/dL (3.5-5.1); Alkaline Phosphatase 63 U/L (38-126); Anion Gap 7 mmol/L (8-16); Aspartate Amino Transferase 22 U/L (14-36); Bilirubin,Total 0.5 mg/dL (0.2-1.3); Blood Urea Nitrogen 18 mg/dL (7-17); Calcium 9.3 mg/dL (8.4-10.2); Carbon Dioxide 22 mmol/L (22-30); Chloride 106 mmol/L (98-107); Estimated CRCL calculation 45 ml/min; Estimated Glomerular Filt Rate 56; Glucose 122 mg/dL (65-110); Magnesium 1.7 mg/dL (1.6-2.3); Sodium 135 mmol/L (137-145)
[2021-10-19 08:23] LABS: Free T4 Free Thyroxine Reflex 1.17 ng/dL (0.78-2.19)
[2021-10-19] MEDS: ALPRAZolam (*CRX) 0.5 MG TABLET 1 MG PO ×3 (08:34→18:22)
[2021-10-19] MEDS: PANTOPRAZOLE 40 MG TABLET PO (08:35)
[2021-10-19] MEDS: CHOLECALCIFEROL 1,000 UNITS TABLET 1000 UNITS PO (08:35)
[2021-10-19] MEDS: MAGNESIUM OXIDE 400 MG TABLET PO ×2 (08:35→18:22)
[2021-10-19] MEDS: PYRIDOXINE HCL 50 MG TABLET 100 MG PO (08:35)
[2021-10-19] MEDS: ROSUVASTATIN 5 MG TABLET PO (08:35)
--- NOTE | 2021-10-19 09:52 | PM.IMPN ---
Progress Note: A&P Assessment and Plan (1) Acute kidney injury: Code(s): N17.9 - Acute kidney failure, unspecified Status: Acute Assessment and Plan: Most likely due to dehydration, treated with IV hydration. (2) Dehydration: Code(s): E86.0 - Dehydration Status: Acute Assessment and Plan: Continue IV fluid. (3) Leukocytosis: Code(s): D72.829 - Elevated white blood cell count, unspecified Status: Acute Assessment and Plan: Patient has history of ovarian cancer but also has abnormal UA patient is having fever and shivering started empiric IV antibiotics pending culture results (4) Depression: Code(s): F32.A - Depression, unspecified Status: Acute Assessment and Plan: Patient reports worsening depression recently given some family issues. She has but briefly of suicide in the last several weeks but she has no plans and she is not actively suicidal. She will need to follow-up with Angel Luis Zaragoza NP as an outpatient. (5) Tobacco dependence: Code(s): F17.200 - Nicotine dependence, unspecified, uncomplicated Status: Acute Assessment and Plan: Counseling. (6) Anxiety: Code(s): F41.9 - Anxiety disorder, unspecified Status: Chronic Assessment and Plan: Continue alprazolam as needed. (7) Chronic obstructive pulmonary disease: Code(s): J44.9 - Chronic obstructive pulmonary disease, unspecified Status: Chronic Assessment and Plan: No acute issues. Continue home respiratory regimen. Subjective Date/time seen: 10/19/21 09:52 Interval history: Patient seen and examined Patient feels weak she is having shivering she have episodes of fever UA was abnormal patient is having leukocytosis and tachycardia Ordered blood culture started IV Rocephin on 10/19/2021 Patient denies fever headache chest pain shortness of breath I am seeing the patient for UTI Exam Narrative: Alert looks weak having shivering Chest no wheeze crackles Abdomen nontender nondistended CVS S1 + S2 Lower extremity edema Objective Data Vital Signs Vital Signs: Vital Signs - 24 hr 10/18/21 12:07 10/18/21 16:40 10/18/21 17:07 Temperature 97.7 F 97.3 F L Pulse Rate 88 100 112 H Respiratory Rate 16 16 18 Blood Pressure 170/100 H 117/77 110/89 Pulse Oximetry 97 98 100 10/18/21 21:07 10/19/21 05:38 Temperature 98.7 F 97 F L Pulse Rate 99 113 H Respiratory Rate 18 20 Blood Pressure 110/65 111/66 Pulse Oximetry 94 99 Intake/Output Intake/Output: Intake & Output 10/16/21 10/17/21 10/18/21 10/19/21 23:59 23:59 23:59 23:59 Intake Total 1340 1336 Output Total 150 600 Balance 1190 736 Meds/Results Medications: Active Medications Generic Name Dose Route Start Last Admin Trade Name Freq PRN Reason Stop Dose Admin Acetaminophen 650 mg 10/18/21 14:23 Acetaminophen 325 Mg Tablet PO Q4H PRN Mild Pain (1-3) or Fever Hydrocodone Bitart/Acetaminophen 1 tab 10/18/21 14:23 10/19/21 08:34 Hydrocodone/Acetaminophen (*Crx) 5-325 Mg Tablet PO 1 tab Q4H PRN Administration Pain Rated 4-6 Alprazolam 1 mg 10/19/21 09:00 10/19/21 08:34 Alprazolam (*Crx) 0.5 Mg Tablet PO 1 mg TID JACK Administration Fluticasone Propionate 1 spray 10/18/21 23:53 10/19/21 03:10 Fluticasone Propionate 0.05% Na Spr 16 Gm Btl (*Bkc) NASAL 1 spray PRN PRN Administration Allergic Symptoms Acetaminophen 1,000 mg in 100 mls @ 400 mls/hr 10/18/21 14:23 10/18/21 21:30 Ofirmev 1,000 Mg Ivpb IVPB 10/19/21 14:22 Infused Q6H PRN Infusion Mild Pain (1-3) or Fever Sodium Chloride 1,000 mls @ 75 mls/hr 10/18/21 14:25 10/19/21 05:28 Normal Saline Iv IV CONT 75 mls/hr .[id number] JACK Infusion Ceftriaxone Sodium 2 gm/ 100 mls @ 200 mls/hr 10/19/21 09:50 Sodium Chloride IVPB 10/24/21 09:49 Q24H JACK Loratadine 10 mg 10/18/21 23:53
[2021-10-19 10:04] LABS: Total Triiodothyronine (T3) 0.73 NG/ML (0.97-1.69)
[2021-10-19] MEDS: cefTRIAXone 2 GM in SODIUM CHLORIDE 0.9% IV 100 ML 200 ML IVPB (11:45)
[2021-10-19 15:21] VITALS: BP 104/55; PULSE 110; RESP 18; TEMP 37.8; O2SAT 95
[2021-10-19 15:48] VITALS: TEMP 37.8
[2021-10-19] MEDS: ACETAMINOPHEN 325 MG TABLET 650 MG PO (15:48)
[2021-10-19 18:22] VITALS: TEMP 36.9
[2021-10-19 20:01] VITALS: BP 121/61; PULSE 101; RESP 20; TEMP 35.7; O2SAT 95
[2021-10-19] MEDS: traZODone HCL 50 MG TABLET PO (20:09)
[2021-10-19] MEDS: ALBUTEROL SULFATE NEB 2.5 MG/0.5 ML INH INHALATION (20:47)
[2021-10-19] MEDS: IPRATROPIUM BR 0.02% INH SOLN 0.5 MG/2.5 ML VIAL INHALATION (20:47)
[2021-10-19 20:58] VITALS: PULSE 114; RESP 26
[2021-10-20] VITALS (15 sets, daily range): BP systolic 96–107; BP diastolic 58–60; PULSE 92–107; RESP 16–22; TEMP 36.1–37.7; O2SAT 90–98
--- NOTE | 2021-10-20 | ECHO_ITS ---
Patient Info Name: Myriam Martinez Age: 66 years : 1955 Gender: Female Ht: 65 in Wt: 145 lbs BSA: 1.75 m2 HR: 98 bpm BP: 98 / 58 mmHg Heart Rhythm: Sinus Rhythm Technical Quality: Good Exam Date: 10/20/2021 10:44 AM Exam Location: [facility] Card Pulmonary Exam Room: 347 Patient Status: Inpatient Admit Date: 10/19/2021 Staff Ordering Physician: Luis E Domingo M.A., MD Aircraft Systems Technician: Vidya Rey RDCS Attending Provider: Joseph Baker MD Referring Physician: Juan OLIVEROS; Exam Type: CA echo doppler color flow Study Info Indications - RULE OUT ENDOCARDITIS Complete two-dimensional, color flow and Doppler transthoracic echocardiogram is performed. Summary 1. Complete two-dimensional, color flow and Doppler transthoracic echocardiogram is performed. 2. Normal left ventricular size and thickness with good contractility of all segments. No segmental wall motion abnormalities. Ejection fraction 64%. Grade 2 diastolic dysfunction is present. 3. Normal valve structure and function. 4. Left atrial chamber dimension is mildly enlarged. 5. No pulmonary hypertension, estimated pulmonary arterial systolic pressure is 33 mmHg. 6. Dilated inferior vena cava with >50% collapse upon inspiration consistent with elevated right atrial pressure, 10 mmHg. 7. There is small pericardial effusion around the right atrium, 1.3 cm thick without tamponade physiology. 8. Normal sinus rhythm. Left Ventricle Left ventricular chamber dimension is normal. Left ventricular systolic function is normal, estimated at 60-65%. There is no increased left ventricular wall thickness. Left ventricular septal wall motion is normal. The left ventricular diastolic function is grade II diastolic dysfunction. Right Ventricle Right ventricular chamber dimension is normal. Right ventricular systolic function is normal. Left Atria Left atrial chamber dimension is mildly enlarged. Right Atria Right atrial chamber dimension is normal. Aortic Valve The aortic valve is trileaflet. There is no aortic valve sclerosis. There is no aortic valve stenosis. There is no aortic valve regurgitation. Pulmonic Valve The pulmonic valve is normal. There is no pulmonic valve stenosis. There is no pulmonic regurgitation. Mitral Valve The mitral valve has normal leaflets. There is no mitral valve stenosis. There is trace mitral valve regurgitation. Tricuspid Valve The tricuspid valve leaflets are normal. There is no significant tricuspid valve stenosis. There is trace tricuspid valve regurgitation. No pulmonary hypertension, estimated pulmonary arterial systolic pressure is 33 mmHg. Pericardium/Pleural The pericardium appears normal. There is small pericardial effusion around the right atrium, 1.3 cm thick without tamponade physiology. Inferior Vena Cava Dilated inferior vena cava with >50% collapse upon inspiration consistent with elevated right atrial pressure, 10 mmHg. Aorta The aortic root size at the sinus of Valsalva is normal. The prox ascending aorta size is normal. Left Ventricular Outflow Tract Name Value Normal LVOT 2D LVOT Diameter 2.0 cm LVOT Doppler
[2021-10-20] MEDS: HYDROcodone/acetaminophen (*CRX) 5-325 MG TABLET 1 TAB PO ×3 (02:19→17:01)
[2021-10-20] MEDS: ALBUTEROL SULFATE NEB 2.5 MG/0.5 ML INH INHALATION ×4 (08:11→20:37)
[2021-10-20] MEDS: IPRATROPIUM BR 0.02% INH SOLN 0.5 MG/2.5 ML VIAL INHALATION ×4 (08:11→20:37)
[2021-10-20] MEDS: ALPRAZolam (*CRX) 0.5 MG TABLET 1 MG PO ×3 (08:53→17:01)
[2021-10-20] MEDS: ENOXAPARIN 40 MG/0.4 ML SYRINGE SUB-Q (08:53)
[2021-10-20] MEDS: SODIUM CHLORIDE 0.9% IV 1,000 ML 75 ML IV CONT (08:53)
[2021-10-20] MEDS: PYRIDOXINE HCL 50 MG TABLET 100 MG PO (08:54)
[2021-10-20] MEDS: ROSUVASTATIN 5 MG TABLET PO (08:54)
[2021-10-20] MEDS: PANTOPRAZOLE 40 MG TABLET PO (08:54)
[2021-10-20] MEDS: CHOLECALCIFEROL 1,000 UNITS TABLET 1000 UNITS PO (08:54)
[2021-10-20] MEDS: MAGNESIUM OXIDE 400 MG TABLET PO ×2 (08:54→17:02)
--- NOTE | 2021-10-20 10:26 | PM.IMPN ---
Progress Note: A&P Assessment and Plan (1) Acute kidney injury: Code(s): N17.9 - Acute kidney failure, unspecified Status: Acute Assessment and Plan: improved DC IV hydration as patient has sign of fluid overload (2) Dehydration: Code(s): E86.0 - Dehydration Status: Acute Assessment and Plan: resolved (3) Leukocytosis: Code(s): D72.829 - Elevated white blood cell count, unspecified Status: Acute Assessment and Plan: Patient has history of ovarian cancer but also has abnormal UA patient is having fever and shivering started empiric IV antibiotics pending culture results blood culture positive for Staph aureus ID was consulted CT scan of the abdomen shows nephrolithiasis CT scan of the chest pending echo was pending continue IV vancomycin continue Rocephin (4) Depression: Code(s): F32.A - Depression, unspecified Status: Acute Assessment and Plan: Patient reports worsening depression recently given some family issues. She has but briefly of suicide in the last several weeks but she has no plans and she is not actively suicidal. She will need to follow-up with Angel Luis Zaragoza NP as an outpatient. (5) Tobacco dependence: Code(s): F17.200 - Nicotine dependence, unspecified, uncomplicated Status: Acute Assessment and Plan: Counseling. (6) Anxiety: Code(s): F41.9 - Anxiety disorder, unspecified Status: Chronic Assessment and Plan: Continue alprazolam as needed. (7) Chronic obstructive pulmonary disease: Code(s): J44.9 - Chronic obstructive pulmonary disease, unspecified Status: Chronic Assessment and Plan: inhaler treatment (8) Pleural effusion: Code(s): J90 - Pleural effusion, not elsewhere classified Status: Acute Assessment and Plan: probably related to fluid overload will give 2 doses of IV Lasix patient has soft blood pressure will add midodrine Subjective Date/time seen: 10/20/21 10:26 Interval history: Patient seen and examined Patient feels weak she is having shivering she have episodes of fever UA was abnormal patient is having leukocytosis and tachycardia Ordered blood culture started IV Rocephin on 10/19/2021 started IV vancomycin 10/19/2021 ID was consulted 10/20/[address] scan of the chest pending echo CT scan of the abdomen shows nephrolithiasis pleural effusion pericardial effusion patient have shortness of breath overnight Patient denies fever headache chest pain I am seeing the patient for UTI Exam Narrative: Alert looks weak having shivering Chest no wheeze crackles Abdomen nontender nondistended CVS S1 + S2 Lower extremity edema Objective Data Vital Signs Vital Signs: Vital Signs - 24 hr 10/19/21 15:21 10/19/21 15:48 10/19/21 18:22 Temperature 100.1 F H 100.1 F H 98.5 F Pulse Rate 110 H Respiratory Rate 18 Blood Pressure 104/55 L Pulse Oximetry 95 10/19/21 20:01 10/19/21 20:58 10/20/21 02:32 Temperature 96.3 F L 98.9 F Pulse Rate 101 H 114 H 100 Respiratory Rate 20 26 H 18 Blood Pressure 121/61 98/58 L Pulse Oximetry 95 92 10/20/21 08:12 10/20/21 08:20 Temperature Pulse Rate 102 H 98 Respiratory Rate 22 H 22 H Blood Pressure Pulse Oximetry Intake/Output Intake/Output: Intake & Output 10/17/21 10/18/21 10/19/21 10/20/21 23:59 23:59 23:59 23:59 Intake Total 1340 2930 1340 Output Total 150 1200 Balance 1190 1730 1340 Meds/Results Medications: Active Medications Generic Name Dose Route Start Last Admin Trade Name Freq PRN Reason Stop Dose Admin Acetaminophen 650 mg 10/18/21 14:23 10/19/21 15:48 Acetaminophen 325 Mg Tablet PO 650 mg Q4H PRN Administration Mild Pain (1-3) or Fever Hydrocodone Bitart/Acetaminophen 1 tab 10/18/21 14:23 10/20/21 08:55 Hydrocodone/Acetaminophen (*Crx) 5-325 Mg Tablet PO 1 tab Q4H PRN
[2021-10-20] MEDS: cefTRIAXone 2 GM in SODIUM CHLORIDE 0.9% IV 100 ML 200 ML IVPB (12:26)
[2021-10-20] MEDS: MIDODRINE HCL 2.5 MG TABLET 5 MG PO ×2 (13:58→17:02)
[2021-10-20] MEDS: ALBUMIN HUMAN 25% 25 GM/100 ML 100 ML IVPB (17:02)
[2021-10-20] MEDS: traZODone HCL 50 MG TABLET PO (20:21)
[2021-10-20] MEDS: ACETAMINOPHEN 325 MG TABLET 650 MG PO (20:49)
[2021-10-21] VITALS (18 sets, daily range): BP systolic 110–119; BP diastolic 58–70; PULSE 52–105; RESP 16–20; TEMP 36.9–39.2; O2SAT 90–96
[2021-10-21] MEDS: LORATADINE 10 MG TABLET PO (02:40)
[2021-10-21] MEDS: FLUTICASONE PROPIONATE 0.05% NA SPR 16 GM BTL (*BKC) 1 SPRAY NASAL ×2 (02:40→08:34)
[2021-10-21] MEDS: ALBUTEROL SULFATE NEB 2.5 MG/0.5 ML INH INHALATION ×5 (05:46→23:29)
[2021-10-21] MEDS: IPRATROPIUM BR 0.02% INH SOLN 0.5 MG/2.5 ML VIAL INHALATION ×5 (05:46→23:29)
[2021-10-21 06:57] LABS: Estimated CRCL calculation 49 ml/min; Estimated Glomerular Filt Rate > 60
[2021-10-21] MEDS: PYRIDOXINE HCL 50 MG TABLET 100 MG PO (08:35)
[2021-10-21] MEDS: PANTOPRAZOLE 40 MG TABLET PO (08:35)
[2021-10-21] MEDS: ENOXAPARIN 40 MG/0.4 ML SYRINGE SUB-Q (08:35)
[2021-10-21] MEDS: CHOLECALCIFEROL 1,000 UNITS TABLET 1000 UNITS PO (08:35)
[2021-10-21] MEDS: MIDODRINE HCL 2.5 MG TABLET 5 MG PO ×3 (08:35→16:56)
[2021-10-21] MEDS: MAGNESIUM OXIDE 400 MG TABLET PO ×2 (08:35→16:56)
[2021-10-21] MEDS: ROSUVASTATIN 5 MG TABLET PO (08:36)
[2021-10-21] MEDS: ALPRAZolam (*CRX) 0.5 MG TABLET 1 MG PO ×3 (08:38→16:56)
[2021-10-21] MEDS: ALBUMIN HUMAN 25% 25 GM/100 ML 100 ML IVPB ×2 (08:40→16:55)
[2021-10-21] MEDS: HYDROcodone/acetaminophen (*CRX) 5-325 MG TABLET 1 TAB PO ×2 (08:54→20:38)
[2021-10-21] MEDS: cefTRIAXone 2 GM in SODIUM CHLORIDE 0.9% IV 100 ML 200 ML IVPB (09:43)
--- NOTE | 2021-10-21 11:58 | PM.IMPN ---
Progress Note: A&P Assessment and Plan (1) Acute kidney injury: Code(s): N17.9 - Acute kidney failure, unspecified Status: Acute Assessment and Plan: improved DC IV hydration as patient has sign of fluid overload (2) Dehydration: Code(s): E86.0 - Dehydration Status: Acute Assessment and Plan: resolved (3) Leukocytosis: Code(s): D72.829 - Elevated white blood cell count, unspecified Status: Acute Assessment and Plan: Patient has history of ovarian cancer but also has abnormal UA patient is having fever and shivering started empiric IV antibiotics blood culture shows MSSA blood culture positive for Staph aureus ID was consulted CT scan of the abdomen shows nephrolithiasis CT scan of the chest shows pneumonia echo showed pericardial effusion concern for fluid overload continue IV vancomycin continue Rocephin -pending ID recommendation (4) Depression: Code(s): F32.A - Depression, unspecified Status: Acute Assessment and Plan: Patient reports worsening depression recently given some family issues. She has but briefly of suicide in the last several weeks but she has no plans and she is not actively suicidal. She will need to follow-up with Angel Luis Zaragoza NP as an outpatient. (5) Tobacco dependence: Code(s): F17.200 - Nicotine dependence, unspecified, uncomplicated Status: Acute Assessment and Plan: Counseling. (6) Anxiety: Code(s): F41.9 - Anxiety disorder, unspecified Status: Chronic Assessment and Plan: Continue alprazolam as needed. (7) Chronic obstructive pulmonary disease: Code(s): J44.9 - Chronic obstructive pulmonary disease, unspecified Status: Chronic Assessment and Plan: inhaler treatment (8) Pleural effusion: Code(s): J90 - Pleural effusion, not elsewhere classified Status: Acute Assessment and Plan: Associated with pericardial effusion status post IV Lasix complicated with hypotension started on IV albumin and midodrine Subjective Date/time seen: 10/21/21 11:58 Interval history: Patient seen and examined Patient feels weak she is having shivering she have episodes of fever UA was abnormal patient is having leukocytosis and tachycardia Ordered blood culture started IV Rocephin on 10/19/2021 started IV vancomycin 10/19/2021 ID was consulted 10/20/2021 Echo shows pericardial effusion no tamponade CT scan of the chest shows probable pneumonia CT scan of the abdomen shows nephrolithiasis pleural effusion pericardial effusion Shortness of breath has improved Patient denies fever headache chest pain I am seeing the patient for UTI Exam Narrative: Alert feels better today Chest no wheeze crackles have chest pain with deep breath Abdomen nontender nondistended CVS S1 + S2 Lower extremity edema Objective Data Vital Signs Vital Signs: Vital Signs - 24 hr 10/20/21 12:59 10/20/21 13:05 10/20/21 13:10 Temperature Pulse Rate 95 96 Respiratory Rate 20 20 Blood Pressure Pulse Oximetry 92 10/20/21 14:00 10/20/21 16:07 10/20/21 16:14 Temperature 97.0 F L Pulse Rate 103 H 92 93 Respiratory Rate 18 18 18 Blood Pressure 96/58 L Pulse Oximetry 98 10/20/21 20:00 10/20/21 20:37 10/20/21 20:45 Temperature Pulse Rate 107 H 100 102 H Respiratory Rate 16 16 16 Blood Pressure Pulse Oximetry 98 90 10/20/21 20:48 10/20/21 20:49 10/20/21 21:45 Temperature 99.9 F H 99.9 F H 98.0 F Pulse Rate 107 H Respiratory Rate 16 Blood Pressure 107/60 Pulse Oximetry 98 10/21/21 00:47 10/21/21 05:08 10/21/21 05:46 Temperature 98.4 F 98.4 F Pulse Rate 92 92 Respiratory Rate 20 16 Blood Pressure 119/58 L Pulse Oximetry 93 10/21/21 05:57 10/21/21 10:10 10/21/21 10:12 Temperature Pulse Rate 96 97 Respiratory Rate 16 16 Blood Pressure Pulse Oximetry 92
[2021-10-21] MEDS: FUROSEMIDE INJ 40 MG/4 ML VIAL 20 MG IV PUSH (13:11)
[2021-10-21] MEDS: ONDANSETRON INJ 4 MG/2 ML VIAL IV PUSH (18:40)
--- NOTE | 2021-10-21 18:44 | WPDCN ---
Assessment and Plan Additional Plan Assessment and plan: 1. MSSA bacteremia with no clear source. Cutaneous versus endovascular infection the differential diagnosis. Patient also has a port and the left precordium area which was examined and no signs of induration or erythema. Was accessed several weeks ago. Her blood culture from October 18 and October 19 was positive. Echocardiogram was grossly normal. Repeat blood cultures in a.m. and transition to Ancef 2 g q.8 hours. The persistent bacteremia and no obvious source of infection may entertain DAMEON. 2. Leukocytosis associated with fever and bloodstream infection. White count is down to 12,000. Adjust antibiotics accordingly and repeat CBC with differential in the next 24-48 hours. 3. COPD with no decompensation of respiratory status. 4. Date of service 10/21/2021. Case discussed with hospitalist. HPI Data of Consult Date/Time: 10/21/21 18:44 Requesting Physician: Joseph Baker MD Primary Care Provider: Salima Emerson, PA Consult Narrative Narrative: Myriam Martinez is a 66 year old female with significant past medical history for cirrhosis, ovarian cancer, COPD, dyslipidemia and depression presented to the emergency room with generalized malaise and weakness progressing over several weeks and feeling fatigued. Patient also stated that she has had a fever up to 101.3. WBC count was 21,000 in the emergency room and blood cultures collected with positive for Staph aureus. Repeat blood cultures today later was still showing positive for Staph aureus. I was requested to see her for further evaluation. Patient denies any headache or photophobia. No nuchal rigidity. No palpitation or confusion. No skin rash or nodules. No focal neurological deficit. Review of Systems Constitutional: Constitutional: Reports chills Comments: Fever and chills night prior to admission. Eyes: Eyes: Reports no additional eye complaints ENT: Reports system reviewed and no additional complaints, except as documented Cardiovascular: Cardiovascular: Reports no additional cardiovascular complaints Respiratory: Respiratory: Reports no additional respiratory complaints Gastrointestinal: Gastrointestinal: Reports no additional gastrointestinal complaints Genitourinary: Genitourinary: Reports no additional female genitourinary complaints Musculoskeletal: Musculoskeletal: Reports no additional musculoskeletal complaints Integumentary/Breasts: Skin/Breast: Reports system reviewed and no additional complaints, except as docu Neurologic: Reports system reviewed and no additional complaints, except as documented Psychiatric: Psychiatric: Reports no additional psychiatric complaints Endocrine: Endocrine: Reports no additional endocrine complaints Hematologic/Lymphatic: Hematologic/Lymphatic: Reports no additional hematologic/lymphatic complaints Allergic/Immunologic: Allergic/Immunologic: Reports no additional allergic/immunologic complaints [facility] Past Medical History Medical History (Updated 10/20/21 @ 10:29 by Luis E Domingo MD) Anemia Anxiety Arthritis Asthma Chronic obstructive pulmonary disease Degenerative disc disease Depression Emphysema of lung Gastroesophageal reflux disease Hepatitis C Treated in 2007. Hypertension Ovarian cancer Peripheral neuropathy due to chemotherapy Skin cancer Tobacco dependence Surgical History Surgical History (Updated 10/18/21 @ 23:45 by Mary Rashid PA-C) History of appendectomy History of hysterectomy History of lumpectomy of left breast History of open reduction and internal fixation (ORIF) procedure Ankle fracture. History of repair of right rotator cuff History of tonsillectomy Family History Family History Mother Family history of malignant neoplasm Family history of heart disease in male family member before age 55 Sibling Family histo
[2021-10-21] MEDS: ACETAMINOPHEN 325 MG TABLET 650 MG PO (20:38)
[2021-10-21] MEDS: ceFAZolin 2 GM/D5W 50 ML 2 GM/50 ML BAG IVPB (20:39)
[2021-10-21] MEDS: traZODone HCL 50 MG TABLET PO (20:39)
[2021-10-21 21:42] LABS: Vancomycin Trough 8.8 ug/mL (10.0-20.0)
[2021-10-22 06:00] VITALS: BP 93/54; PULSE 91; RESP 18; TEMP 36.6; O2SAT 90
[2021-10-22] MEDS: ceFAZolin 2 GM/D5W 50 ML 2 GM/50 ML BAG IVPB ×3 (06:20→21:30)
[2021-10-22] MEDS: MIDODRINE HCL 2.5 MG TABLET 5 MG PO ×3 (08:49→16:26)
[2021-10-22] MEDS: ALPRAZolam (*CRX) 0.5 MG TABLET 1 MG PO ×3 (09:20→21:29)
[2021-10-22] MEDS: FLUTICASONE PROPIONATE 0.05% NA SPR 16 GM BTL (*BKC) 1 SPRAY NASAL (09:21)
[2021-10-22] MEDS: ALBUMIN HUMAN 25% 25 GM/100 ML 100 ML IVPB (09:21)
[2021-10-22] MEDS: LORATADINE 10 MG TABLET PO (09:21)
[2021-10-22] MEDS: PANTOPRAZOLE 40 MG TABLET PO (09:22)
[2021-10-22] MEDS: FUROSEMIDE INJ 40 MG/4 ML VIAL 20 MG IV PUSH (09:22)
[2021-10-22] MEDS: CHOLECALCIFEROL 1,000 UNITS TABLET 1000 UNITS PO (09:22)
[2021-10-22] MEDS: MAGNESIUM OXIDE 400 MG TABLET PO ×2 (09:22→16:26)
[2021-10-22] MEDS: ROSUVASTATIN 5 MG TABLET PO (09:22)
[2021-10-22] MEDS: PYRIDOXINE HCL 50 MG TABLET 100 MG PO (09:22)
[2021-10-22] MEDS: ENOXAPARIN 40 MG/0.4 ML SYRINGE SUB-Q (09:22)
[2021-10-22] MEDS: IPRATROPIUM BR 0.02% INH SOLN 0.5 MG/2.5 ML VIAL INHALATION ×3 (10:12→15:59)
[2021-10-22] MEDS: ALBUTEROL SULFATE NEB 2.5 MG/0.5 ML INH INHALATION ×3 (10:12→15:59)
[2021-10-22 10:17] VITALS: PULSE 94; RESP 18; O2SAT 90
[2021-10-22 10:17] LABS: Basophils Percent Auto 0.5 % (0.2-1.2); Eosinophils Absolute Auto 0.1 K/mm3 (0-0.3); Hematocrit 27.2 % (37.0-47.0); Hemoglobin 9.1 g/dL (12.0-15.0); Immature Granulocyte Percent A 1.2 % (0-0.5); Immature Platelet Fraction Pct 4.7 % (0.9-11.2); Lymphocytes Absolute Auto 1.11 K/mm3 (0.9-3.2); Lymphocytes Percent Auto 12.8 % (18.3-44.2); Mean Corpuscular HGB Conc 33.5 g/dl (32-36); Mean Corpuscular Hemoglobin 30.7 pg (26-34); Mean Corpuscular Volume 91.9 fl (80-100); Mean Platelet Volume 10.3 fl (7.4-10.4); Monocytes Percent Auto 11.3 % (2.6-8.5); Neutrophils Absolute Auto 6.3 K/mm3 (1.3-6.7); Neutrophils Percent Auto 73.2 % (45.5-73.1); Platelet Count Result 140 k/mm3 (150-375); Red Blood Count 2.96 M/mm3 (4.2-5.4); Red Cell Distribution Width 14.2 % (11.5-14.5); White Blood Count 8.7 K/mm3 (4.5-10.0)
[2021-10-22 10:22] VITALS: PULSE 94; RESP 18; O2SAT 90
[2021-10-22 10:30] LABS: Alanine Aminotransferase 16 U/L (4-35); Albumin Level 4.8 g/dL (3.5-5.1); Alkaline Phosphatase 97 U/L (38-126); Anion Gap 14 mmol/L (8-16); Aspartate Amino Transferase 23 U/L (14-36); Bilirubin,Total 0.5 mg/dL (0.2-1.3); Blood Urea Nitrogen 11 mg/dL (7-17); Calcium 9.4 mg/dL (8.4-10.2); Carbon Dioxide 26 mmol/L (22-30); Chloride 98 mmol/L (98-107); Estimated CRCL calculation 49 ml/min; Estimated Glomerular Filt Rate > 60; Glucose 111 mg/dL (65-110); Potassium 2.9 mmol/L (3.4-5.0); Sodium 138 mmol/L (137-145)
[2021-10-22 11:27] LABS: Magnesium 1.6 mg/dL (1.6-2.3)
[2021-10-22] MEDS: POTASSIUM CHLORIDE 20 MEQ TABLET 40 MEQ PO (11:46)
[2021-10-22] MEDS: HYDROcodone/acetaminophen (*CRX) 5-325 MG TABLET 1 TAB PO (11:46)
[2021-10-22 14:00] VITALS: BP 100/66; PULSE 88; RESP 16; TEMP 37.2; O2SAT 98
[2021-10-22 15:59] VITALS: PULSE 95; RESP 18
--- NOTE | 2021-10-22 17:34 | PM.IMPN ---
Progress Note: A&P Assessment and Plan (1) Acute kidney injury: Code(s): N17.9 - Acute kidney failure, unspecified Status: Acute Assessment and Plan: improved DC IV hydration as patient has sign of fluid overload (2) Dehydration: Code(s): E86.0 - Dehydration Status: Acute Assessment and Plan: resolved (3) Leukocytosis: Code(s): D72.829 - Elevated white blood cell count, unspecified Status: Acute Assessment and Plan: Patient has history of ovarian cancer but also has abnormal UA patient is having fever and shivering started empiric IV antibiotics blood culture shows MSSA ID was consulted started on Ancef CT scan of the abdomen shows nephrolithiasis CT scan of the chest shows pneumonia echo showed pericardial effusion concern for fluid overload Echocardiogram normal if persistent i.d. suggest DAMEON Leukocytosis improving (4) Depression: Code(s): F32.A - Depression, unspecified Status: Acute Assessment and Plan: Patient reports worsening depression recently given some family issues. She has but briefly of suicide in the last several weeks but she has no plans and she is not actively suicidal. She will need to follow-up with Angel Luis Zaragoza NP as an outpatient. (5) Tobacco dependence: Code(s): F17.200 - Nicotine dependence, unspecified, uncomplicated Status: Acute Assessment and Plan: Counseling. (6) Anxiety: Code(s): F41.9 - Anxiety disorder, unspecified Status: Chronic Assessment and Plan: Continue alprazolam as needed. (7) Chronic obstructive pulmonary disease: Code(s): J44.9 - Chronic obstructive pulmonary disease, unspecified Status: Chronic Assessment and Plan: inhaler treatment (8) Pleural effusion: Code(s): J90 - Pleural effusion, not elsewhere classified Status: Acute Assessment and Plan: Associated with pericardial effusion status post IV Lasix complicated with hypotension started on IV albumin and midodrine blood pressure improved today (9) Anemia: Code(s): D64.9 - Anemia, unspecified Status: Acute Assessment and Plan: Worsening likely from sepsis and bacteremia will continue to monitor no active signs of bleeding (10) Hypokalemia: Code(s): E87.6 - Hypokalemia Status: Acute Assessment and Plan: Likely from diuresis replace and monitor Additional Plan DVT prophylaxis Lovenox Subjective Date/time seen: 10/22/21 17:34 Interval history: No overnight events. Patient complains of body aches everywhere. Discussed with her the findings of blood infection. Patient wants to get her alprazolam scheduled. She wants to get some pain medication. Patient still has on and off fever Review of Systems Review of Systems: All systems reviewed & are unremarkable except as noted in HPI and below (HPI) Exam Narrative: GENERAL: The patient is frail looking, not in acute distress HEENT: Nonicteric sclerae, PERRLA, EOMI. Oropharynx clear. Moist mucous membranes. Conjunctivae appear well perfused. CHEST: Chest wall is nontender. HEART: Regular rate and rhythm without murmur, rubs, or gallops LUNGS: Clear to auscultation bilaterally. no respiratory distress ABDOMEN: Soft, positive bowel sounds, non-tender, no organomegaly. SKIN: No rash, no excessive bruising, petechiae, or purpura. NEUROLOGIC: Cranial nerves II-XII intact, alert and oriented x 3, no gross motor deficits EXTREMITIES: no edema, cyanosis or clubbing Extrem: General: normal exam except as noted and no edema Objective Data Vital Signs Vital Signs: Vital Signs - 24 hr 10/21/21 17:36 10/21/21 20:27 10/21/21 20:38 Temperature 102.5 F H 102.5 F H Pulse Rate 96 105 H Respiratory Rate 16 18 Blood Pressure 110/60 Pulse Oximetry 90 10/21/21 21:38 10/21/21 22:18 10/21/21 23:29 Temperature 99.5 F 99.5 F Pulse Rate 92 Resp
[2021-10-22 20:49] VITALS: BP 135/81; PULSE 92; RESP 16; TEMP 37; O2SAT 93
[2021-10-22] MEDS: traZODone HCL 50 MG TABLET PO (21:30)
--- NOTE | 2021-10-22 21:39 | PC.NURSE ---
NOTIFIED RT REGARDING PT REQUEST FOR 2000 BREATHING TX. RT CURRENTLY IN ED WITH CRITICAL PT.
[2021-10-23] VITALS (14 sets, daily range): BP systolic 94–112; BP diastolic 54–73; PULSE 70–100; RESP 14–24; TEMP 36.7–37.8; O2SAT 93–100
[2021-10-23] MEDS: ceFAZolin 2 GM/D5W 50 ML 2 GM/50 ML BAG IVPB ×3 (06:22→20:14)
[2021-10-23] MEDS: HYDROcodone/acetaminophen (*CRX) 5-325 MG TABLET 1 TAB PO ×3 (07:17→20:13)
[2021-10-23 07:23] LABS: Basophils Absolute Auto 0.1 K/mm3 (0.0-0.1); Basophils Percent Auto 0.7 % (0.2-1.2); Eosinophils Absolute Auto 0.1 K/mm3 (0-0.3); Hematocrit 28.3 % (37.0-47.0); Hemoglobin 9.4 g/dL (12.0-15.0); Immature Granulocyte Absolute 0.18 K/mm3 (0.00-0.031); Lymphocytes Absolute Auto 1.89 K/mm3 (0.9-3.2); Lymphocytes Percent Auto 20.5 % (18.3-44.2); Mean Corpuscular HGB Conc 33.2 g/dl (32-36); Mean Corpuscular Hemoglobin 31.3 pg (26-34); Mean Corpuscular Volume 94.3 fl (80-100); Mean Platelet Volume 9.9 fl (7.4-10.4); Monocytes Absolute Auto 1.1 K/mm3 (0.1-0.6); Monocytes Percent Auto 11.5 % (2.6-8.5); Neutrophils Absolute Auto 5.9 K/mm3 (1.3-6.7); Neutrophils Percent Auto 64.3 % (45.5-73.1); Platelet Count Result 170 k/mm3 (150-375); Red Cell Distribution Width 14.1 % (11.5-14.5); White Blood Count 9.2 K/mm3 (4.5-10.0)
[2021-10-23 07:35] LABS: Anion Gap 11 mmol/L (8-16); Blood Urea Nitrogen 13 mg/dL (7-17); Calcium 9.6 mg/dL (8.4-10.2); Carbon Dioxide 29 mmol/L (22-30); Chloride 100 mmol/L (98-107); Estimated CRCL calculation 49 ml/min; Estimated Glomerular Filt Rate > 60; Glucose 121 mg/dL (65-110); Magnesium 1.7 mg/dL (1.6-2.3); Potassium 3.5 mmol/L (3.4-5.0); Sodium 140 mmol/L (137-145)
[2021-10-23] MEDS: ALBUTEROL SULFATE NEB 2.5 MG/0.5 ML INH INHALATION ×4 (08:25→21:47)
[2021-10-23] MEDS: IPRATROPIUM BR 0.02% INH SOLN 0.5 MG/2.5 ML VIAL INHALATION ×4 (08:26→21:46)
[2021-10-23] MEDS: LORATADINE 10 MG TABLET PO (09:14)
[2021-10-23] MEDS: FLUTICASONE PROPIONATE 0.05% NA SPR 16 GM BTL (*BKC) 1 SPRAY NASAL (09:14)
[2021-10-23] MEDS: ALPRAZolam (*CRX) 0.5 MG TABLET 1 MG PO ×3 (09:15→20:13)
[2021-10-23] MEDS: PANTOPRAZOLE 40 MG TABLET PO (09:15)
[2021-10-23] MEDS: MAGNESIUM OXIDE 400 MG TABLET PO (09:15)
[2021-10-23] MEDS: PYRIDOXINE HCL 50 MG TABLET 100 MG PO (09:15)
[2021-10-23] MEDS: ROSUVASTATIN 5 MG TABLET PO (09:15)
[2021-10-23] MEDS: CHOLECALCIFEROL 1,000 UNITS TABLET 1000 UNITS PO (09:15)
[2021-10-23] MEDS: ENOXAPARIN 40 MG/0.4 ML SYRINGE SUB-Q (09:16)
--- NOTE | 2021-10-23 10:03 | PM.IMPN ---
Progress Note: A&P Assessment and Plan (1) Acute kidney injury: Code(s): N17.9 - Acute kidney failure, unspecified Status: Acute Assessment and Plan: improved DC IV hydration as patient has sign of fluid overload This has now resolved (2) Dehydration: Code(s): E86.0 - Dehydration Status: Acute Assessment and Plan: resolved (3) Leukocytosis: Code(s): D72.829 - Elevated white blood cell count, unspecified Status: Acute Assessment and Plan: Patient has history of ovarian cancer but also has abnormal UA patient is having fever and shivering started empiric IV antibiotics blood culture shows MSSA ID was consulted started on Ancef CT scan of the abdomen shows nephrolithiasis CT scan of the chest shows pneumonia echo showed pericardial effusion concern for fluid overload Echocardiogram normal if persistent i.d. suggest DAMEON Leukocytosis improving and normal today Remains afebrile continue Ancef as ordered and recommended by Infectious Disease (4) Depression: Code(s): F32.A - Depression, unspecified Status: Acute Assessment and Plan: Patient reports worsening depression recently given some family issues. She has but briefly of suicide in the last several weeks but she has no plans and she is not actively suicidal. She will need to follow-up with Angel Luis Zaragoza NP as an outpatient. (5) Tobacco dependence: Code(s): F17.200 - Nicotine dependence, unspecified, uncomplicated Status: Acute Assessment and Plan: Counseling. (6) Anxiety: Code(s): F41.9 - Anxiety disorder, unspecified Status: Chronic Assessment and Plan: Continue alprazolam as needed. (7) Chronic obstructive pulmonary disease: Code(s): J44.9 - Chronic obstructive pulmonary disease, unspecified Status: Chronic Assessment and Plan: inhaler treatment (8) Pleural effusion: Code(s): J90 - Pleural effusion, not elsewhere classified Status: Acute Assessment and Plan: Associated with pericardial effusion status post IV Lasix complicated with hypotension started on IV albumin and midodrine blood pressure improved today Midodrine and IV albumin was stopped blood pressure remains stable hypotension likely due to IV diuretic use (9) Anemia: Code(s): D64.9 - Anemia, unspecified Status: Acute Assessment and Plan: Worsening likely from sepsis and bacteremia will continue to monitor no active signs of bleeding (10) Hypokalemia: Code(s): E87.6 - Hypokalemia Status: Acute Assessment and Plan: Likely from diuresis replace and monitor Normal potassium today Additional Plan DVT prophylaxis Lovenox Subjective Date/time seen: 10/23/21 10:03 Interval history: Patient seen and examined. No overnight events. She feels weak and is she is working with therapy. She is in a better mood today. Remains afebrile. Understands he needs IV antibiotics to be continued. No abdominal pain nausea vomiting. Review of Systems Review of Systems: All systems reviewed & are unremarkable except as noted in HPI and below (HPI) Exam Narrative: GENERAL: The patient is frail looking, not in acute distress HEENT: Nonicteric sclerae, PERRLA, EOMI. Oropharynx clear. Moist mucous membranes. Conjunctivae appear well perfused. CHEST: Chest wall is nontender. HEART: Regular rate and rhythm without murmur, rubs, or gallops LUNGS: Clear to auscultation bilaterally. no respiratory distress ABDOMEN: Soft, positive bowel sounds, non-tender, no organomegaly. SKIN: No rash, no excessive bruising, petechiae, or purpura. NEUROLOGIC: Cranial nerves II-XII intact, alert and oriented x 3, no gross motor deficits EXTREMITIES: no edema, cyanosis or clubbing Objective Data Vital Signs Vital Signs: Vital Signs - 24 hr 10/22/21 10:17 10/22/21 10:22 10/22/21 14:00 Temperature 99.0 F Pulse Rate
--- NOTE | 2021-10-23 15:14 | WPDINFPN2 ---
Progress Note: A&P Additional Plan Assessment and plan: 1. MSSA bacteremia with no clear source. Cutaneous versus endovascular infection the differential diagnosis. Patient also has a port and the left precordium area which was examined and no signs of induration or erythema. Currently accessed and functioning well. Her blood culture from October 18 and October 19 was positive. Echocardiogram was grossly normal. Repeat blood cultures times 48 hours so far negative. Continue Ancef day 3. Follow up on echocardiogram. Duration of therapy to be determined based on finalization of blood cultures and echocardiogram. 2. Leukocytosis associated with fever and bloodstream infection. White count is down to 12,000. Adjust antibiotics accordingly and repeat CBC with differential in the next 24-48 hours. 3. COPD with no decompensation of respiratory status. Subjective Date/time seen: 10/23/21 15:14 Exam Neck: Other: Neck is supple Chest: Other: Left pericardium port site is clean. Currently accessed Resp: Other: Good bilateral air entry no rale no wheeze Cardio: Other: Positive S1 and positive S2. No murmur. GI: Other: Positive bowel sound nontender. No organomegaly. No mass. Skin: Other: No rash. Neuro: Other: Alert and awake no focal deficit. Extrem: Other: No lower extremity edema. Psych: Other: No anxiety or agitation. Objective Data Vital Signs Vital Signs: Vital Signs - 24 hr 10/22/21 15:59 10/22/21 20:49 10/23/21 05:05 Temperature 37.0 C 36.8 C Pulse Rate 95 92 97 Respiratory Rate 18 16 18 Blood Pressure 135/81 94/54 L Pulse Oximetry 93 100 10/23/21 08:15 10/23/21 08:26 10/23/21 08:27 Temperature Pulse Rate 88 88 91 Respiratory Rate 18 18 18 Blood Pressure Pulse Oximetry 93 10/23/21 12:32 10/23/21 12:41 10/23/21 14:12 Temperature 36.7 C Pulse Rate 79 82 92 Respiratory Rate 18 18 20 Blood Pressure 103/73 Pulse Oximetry 96 Intake/Output Intake/Output: Intake & Output 10/20/21 10/21/21 10/22/21 10/23/21 23:59 23:59 23:59 23:59 Intake Total 2990 2250 1830 860 Output Total 550 500 200 Balance 2440 1750 1830 660 Meds/Results Medications: Active Medications Generic Name Dose Route Start Last Admin Trade Name Freq PRN Reason Stop Dose Admin Acetaminophen 650 mg 10/18/21 14:23 10/21/21 20:38 Acetaminophen 325 Mg Tablet PO 650 mg Q4H PRN Administration Mild Pain (1-3) or Fever Hydrocodone Bitart/Acetaminophen 1 tab 10/18/21 14:23 10/23/21 07:17 Hydrocodone/Acetaminophen (*Crx) 5-325 Mg Tablet PO 1 tab Q4H PRN Administration Pain Rated 4-6 Hydrocodone Bitart/Acetaminophen 1 tab 10/22/21 17:46 10/23/21 13:02 Hydrocodone/Acetaminophen (*Crx) 5-325 Mg Tablet PO 1 tab Q6H PRN Administration Pain Rated 4-6 Albuterol 2.5 mg 10/19/21 20:00 10/23/21 12:31 Albuterol Sulfate Neb 2.5 Mg/0.5 Ml Inh INHALATION 2.5 mg QIDRT JACK Administration Albuterol 2.5 mg 10/21/21 04:58 10/21/21 05:46 Albuterol Sulfate Neb 2.5 Mg/0.5 Ml Inh INHALATION 2.5 mg Q4HRT PRN Administration Shortness Of Breath Alprazolam 1 mg 10/22/21 15:00 10/23/21 14:12 Alprazolam (*Crx) 0.5 Mg Tablet PO 1 mg TID@0900,1500,2100 JACK Administration Enoxaparin Sodium 40 mg 10/20/21 09:00 10/23/21 09:16 Enoxaparin 40 Mg/0.4 Ml Syringe SUB-Q 40 mg DAILY JACK Administration Fluticasone Propionate 1 spray 10/18/21 23:53 10/23/21 09:14 Fluticasone Propionate 0.05% Na Spr 16 Gm Btl (*Bkc) NASAL 1 spray PRN PRN Administration Allergic Symptoms Heparin Sodium (Beef Lung) 50 units 10/24/21 09:00 Heparin Flush 50 Units/5 Ml Syringe IV PUSH QAM JACK Heparin Sodium (Beef Lung) 50 units 10/23/21 14:07 Heparin Flush 50 Units/5 Ml Syringe IV PUSH PRN PRN after intermittent infusion Heparin Sodium (Beef Lung) 50 units 10/23/21 14:07 Heparin Flush 50 Units/5 Ml Syringe IV PUSH
[2021-10-23] MEDS: traZODone HCL 50 MG TABLET PO (20:14)
[2021-10-23] MEDS: CENTRAL LINE FLUSH 10 ML IV PUSH (20:24)
[2021-10-24] VITALS (13 sets, daily range): BP systolic 111–135; BP diastolic 70–84; PULSE 74–97; RESP 14–20; TEMP 36.1–37.2; O2SAT 93–98
[2021-10-24] MEDS: ceFAZolin 2 GM/D5W 50 ML 2 GM/50 ML BAG IVPB ×3 (06:23→21:07)
[2021-10-24] MEDS: CENTRAL LINE FLUSH 10 ML IV PUSH ×3 (06:23→21:08)
[2021-10-24 06:47] LABS: Anion Gap 8 mmol/L (8-16); Blood Urea Nitrogen 14 mg/dL (7-17); Calcium 9.1 mg/dL (8.4-10.2); Carbon Dioxide 30 mmol/L (22-30); Chloride 100 mmol/L (98-107); Estimated CRCL calculation 55 ml/min; Estimated Glomerular Filt Rate > 60; Glucose 109 mg/dL (65-110); Potassium 3.7 mmol/L (3.4-5.0); Sodium 138 mmol/L (137-145)
[2021-10-24 06:48] LABS: Basophils Absolute Auto 0.1 K/mm3 (0.0-0.1); Basophils Percent Auto 0.5 % (0.2-1.2); Eosinophils Absolute Auto 0.1 K/mm3 (0-0.3); Hematocrit 25.2 % (37.0-47.0); Hemoglobin 8.6 g/dL (12.0-15.0); Immature Granulocyte Absolute 0.18 K/mm3 (0.00-0.031); Immature Granulocyte Percent A 1.8 % (0-0.5); Lymphocytes Absolute Auto 1.56 K/mm3 (0.9-3.2); Lymphocytes Percent Auto 15.9 % (18.3-44.2); Mean Corpuscular HGB Conc 34.1 g/dl (32-36); Mean Corpuscular Hemoglobin 31.4 pg (26-34); Mean Platelet Volume 10.1 fl (7.4-10.4); Monocytes Absolute Auto 0.9 K/mm3 (0.1-0.6); Monocytes Percent Auto 9.5 % (2.6-8.5); Neutrophils Percent Auto 71.3 % (45.5-73.1); Platelet Count Result 199 k/mm3 (150-375); Red Blood Count 2.74 M/mm3 (4.2-5.4); Red Cell Distribution Width 14.3 % (11.5-14.5); White Blood Count 9.8 K/mm3 (4.5-10.0)
[2021-10-24] MEDS: IPRATROPIUM BR 0.02% INH SOLN 0.5 MG/2.5 ML VIAL INHALATION ×4 (07:25→20:54)
[2021-10-24] MEDS: ALBUTEROL SULFATE NEB 2.5 MG/0.5 ML INH INHALATION ×4 (07:25→20:54)
[2021-10-24] MEDS: LIDOCAINE 5% PATCH 1 PATCH TRANSDERM (08:53)
[2021-10-24] MEDS: PYRIDOXINE HCL 50 MG TABLET 100 MG PO (08:54)
[2021-10-24] MEDS: ENOXAPARIN 40 MG/0.4 ML SYRINGE SUB-Q (08:54)
[2021-10-24] MEDS: CHOLECALCIFEROL 1,000 UNITS TABLET 1000 UNITS PO (08:54)
[2021-10-24] MEDS: ALPRAZolam (*CRX) 0.5 MG TABLET 1 MG PO ×3 (08:54→21:06)
[2021-10-24] MEDS: LORATADINE 10 MG TABLET PO (08:54)
[2021-10-24] MEDS: MAGNESIUM OXIDE 400 MG TABLET PO ×2 (08:54→17:08)
[2021-10-24] MEDS: ROSUVASTATIN 5 MG TABLET PO (08:54)
[2021-10-24] MEDS: PANTOPRAZOLE 40 MG TABLET PO (08:54)
[2021-10-24] MEDS: HYDROcodone/acetaminophen (*CRX) 5-325 MG TABLET 1 TAB PO ×2 (08:55→14:55)
--- NOTE | 2021-10-24 14:22 | WPDINFPN2 ---
Progress Note: A&P Assessment and Plan (1) Leukocytosis: Code(s): D72.829 - Elevated white blood cell count, unspecified Status: Acute Assessment and Plan: 1. SUSIE bacteremia with infection, strongly suspect port a cath tip as the source. Repeat BCs ngsf. 2. Ovarian cancer 3. COPD 4. Tobacco, ongoing, counseled on cessation REC (antibiotic #6) Ancef #4. Continue. Needs IV antibiotic through 11/16/21, if port were to remain in place. [I discussed with her that there is no way to prove my impression of port as the source, unless and until removal is done. However she would then need new IV such as midline or PICC, giving IV antibiotic 14 days post op.] I think it is reasonable, as long as no new events such as new + BCs, to attempt salvage of the port. Discharge planning is problematic as she lives alone, is a poor candidate for home IV therapy, declines NH, and has no transportation to utilize outpatient therapy. Structural Welder will discuss with patient. Subjective Date/time seen: 10/24/21 14:22 Interval history: no new complaints. 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 No breaks in skin. Abd pain at time persists. 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 She also reports very poor peripheral access Exam Narrative: t max 37.8 Const: General: no acute distress Eyes: General: appearance normal, both eyes and all related structures Resp: Effort & Inspection: normal respiratory effort Auscultation: no rales, no rhonchi and wheezes Cardio: Rate: regular rate Rhythm: regular rhythm Heart sounds: no gallops and no murmurs GI: Inspection: non-distended GI Palp: Yes Soft to palpation and No Tenderness to palpation present (GI) Skin: General skin exam: normal color, no rashes or lesions noted and no erythema Lesions: no lesions noted Objective Data Vital Signs Vital Signs: Vital Signs - 24 hr 10/23/21 17:12 10/23/21 17:18 10/23/21 21:14 Temperature 37.8 C H Pulse Rate 73 86 100 Respiratory Rate 24 H 24 H 14 Blood Pressure 112/62 Pulse Oximetry 93 10/23/21 21:29 10/23/21 21:47 10/23/21 21:48 Temperature 36.9 C Pulse Rate 70 89 Respiratory Rate 22 H 22 H Blood Pressure Pulse Oximetry 94 10/23/21 21:56 10/24/21 06:00 10/24/21 07:26 Temperature 37.2 C Pulse Rate 74 93 88 Respiratory Rate 22 H 14 20 Blood Pressure 125/84 Pulse Oximetry 93 93 10/24/21 07:36 10/24/21 11:47 10/24/21 11:54 Temperature Pulse Rate 74 97 86 Respiratory Rate 20 20 20 Blood Pressure Pulse Oximetry Intake/Output Intake/Output: Intake & Output 10/21/21 10/22/21 10/23/21 10/24/21 23:59 23:59 23:59 23:59 Intake Total 2250 1830 1150 590 Output Total 500 200 Balance 1750 1830 950 590 Meds/Results Medications: Active Medications Generic Name Dose Route Start Last Admin Trade Name Freq PRN Reason Stop Dose Admin Acetaminophen 650 mg 10/18/21 14:23 10/21/21 20:38 Acetaminophen 325 Mg Tablet PO 650 mg Q4H PRN Administration Mild Pain (1-3) or Fever Hydrocodone Bitart/Acetaminophen 1 tab 10/18/21 14:23 10/24/21 08:55 Hydrocodone/Acetaminophen (*Crx) 5-325 Mg Tablet PO 1 tab Q4H PRN Administration Pain Rated 4-6 Hydrocodone Bitart/Acetaminophen 1 tab 10/22/21 17:46 10/23/21 13:02 Hydrocodone/Acetaminophen (*Crx) 5-325 Mg Tablet PO 1 tab Q6H PRN Administration Pain Rated 4-6 Albuterol 2.5 mg 10/19/21 20:00 10/24/21 11:46 Albuterol Sulfate Neb 2.5 Mg/0.5 Ml Inh INHALATION 2.5 mg QIDRT JACK Administration Albuterol 2.5 mg 10/21/21 04:58 10/21/21 05:46 Albuterol Sulfate Neb 2.5 Mg/0.5 Ml Inh INHALATION 2.5 mg Q4HRT PRN Administration Shortness Of Breath Alprazolam 1 mg 10/22/21 15:00 10/24/21 08:54 Alprazolam (*Crx) 0.5 Mg Tablet PO 1 mg TID@0900,1500,2100 JACK Administration Enoxaparin Sodium 40 mg 10/20/21 09:00 10/24/21 08:54 Enox
--- NOTE | 2021-10-24 15:09 | PM.IMPN ---
Progress Note: A&P Assessment and Plan (1) Acute kidney injury: Code(s): N17.9 - Acute kidney failure, unspecified Status: Acute Assessment and Plan: improved DC IV hydration as patient has sign of fluid overload This has now resolved (2) Dehydration: Code(s): E86.0 - Dehydration Status: Acute Assessment and Plan: resolved (3) Leukocytosis: Code(s): D72.829 - Elevated white blood cell count, unspecified Status: Acute Assessment and Plan: Patient has history of ovarian cancer but also has abnormal UA patient is having fever and shivering started empiric IV antibiotics blood culture shows MSSA ID was consulted started on Ancef CT scan of the abdomen shows nephrolithiasis CT scan of the chest shows pneumonia echo showed pericardial effusion concern for fluid overload Echocardiogram normal if persistent i.d. suggest DAMEON Leukocytosis improving and normal today Remains afebrile continue Ancef as ordered and recommended by Infectious Disease 10/24/2021 spiked fever intermittently still. Possibility of port infection discussed with infectious disease port has not been in use since past 9 months patient opting port removal for shorter duration of antibiotic course. She will need Ancef for 2 weeks post port removal or ceftriaxone as another option. She will need a PICC line for IV antibiotics once port is removed (4) Depression: Code(s): F32.A - Depression, unspecified Status: Acute Assessment and Plan: Patient reports worsening depression recently given some family issues. She has but briefly of suicide in the last several weeks but she has no plans and she is not actively suicidal. She will need to follow-up with Angel Luis Zaragoza NP as an outpatient. (5) Tobacco dependence: Code(s): F17.200 - Nicotine dependence, unspecified, uncomplicated Status: Acute Assessment and Plan: Counseling. (6) Anxiety: Code(s): F41.9 - Anxiety disorder, unspecified Status: Chronic Assessment and Plan: Continue alprazolam as needed. (7) Chronic obstructive pulmonary disease: Code(s): J44.9 - Chronic obstructive pulmonary disease, unspecified Status: Chronic Assessment and Plan: inhaler treatment (8) Pleural effusion: Code(s): J90 - Pleural effusion, not elsewhere classified Status: Acute Assessment and Plan: Associated with pericardial effusion status post IV Lasix complicated with hypotension started on IV albumin and midodrine blood pressure improved today Midodrine and IV albumin was stopped blood pressure remains stable hypotension likely due to IV diuretic use (9) Anemia: Code(s): D64.9 - Anemia, unspecified Status: Acute Assessment and Plan: Worsening likely from sepsis and bacteremia will continue to monitor no active signs of bleeding (10) Hypokalemia: Code(s): E87.6 - Hypokalemia Status: Acute Assessment and Plan: Likely from diuresis replace and monitor Normal potassium today Additional Plan DVT prophylaxis Lovenox Subjective Date/time seen: 10/24/21 15:09 Interval history: Patient seen and examined. Patient spiked a fever last night. [facility] states she had this port for chemotherapy and but been getting chemotherapy for the past 9 months. She opts for removal of the port after discussion with the Infectious Disease. Anxious and scared about her condition. She does not have drive a car. Review of Systems Review of Systems: All systems reviewed & are unremarkable except as noted in HPI and below (HPI) Exam Narrative: GENERAL: The patient is frail looking, not in acute distress HEENT: Nonicteric sclerae, PERRLA, EOMI. Oropharynx clear. Moist mucous membranes. Conjunctivae appear well perfused. CHEST: Chest wall is nontender. HEART: Regular rate and rhythm without murmur, rubs, or gallops LUNGS: Clear to auscul
[2021-10-24] MEDS: traZODone HCL 50 MG TABLET PO (21:07)
[2021-10-25] VITALS (15 sets, daily range): BP systolic 114–137; BP diastolic 76–81; PULSE 74–96; RESP 16–24; TEMP 36.2–37.2; O2SAT 93–97
[2021-10-25] MEDS: ceFAZolin 2 GM/D5W 50 ML 2 GM/50 ML BAG IVPB ×3 (05:38→21:00)
[2021-10-25] MEDS: CENTRAL LINE FLUSH 10 ML IV PUSH (05:39)
[2021-10-25 06:02] LABS: Basophils Absolute Auto 0.1 K/mm3 (0.0-0.1); Basophils Percent Auto 0.6 % (0.2-1.2); Eosinophils Absolute Auto 0.1 K/mm3 (0-0.3); Hematocrit 26.1 % (37.0-47.0); Hemoglobin 8.7 g/dL (12.0-15.0); Immature Granulocyte Absolute 0.19 K/mm3 (0.00-0.031); Immature Granulocyte Percent A 1.9 % (0-0.5); Lymphocytes Absolute Auto 1.66 K/mm3 (0.9-3.2); Lymphocytes Percent Auto 16.9 % (18.3-44.2); Mean Corpuscular HGB Conc 33.3 g/dl (32-36); Mean Corpuscular Hemoglobin 31.4 pg (26-34); Mean Corpuscular Volume 94.2 fl (80-100); Mean Platelet Volume 10.1 fl (7.4-10.4); Monocytes Absolute Auto 0.8 K/mm3 (0.1-0.6); Neutrophils Percent Auto 71.6 % (45.5-73.1); Platelet Count Result 257 k/mm3 (150-375); Red Blood Count 2.77 M/mm3 (4.2-5.4); Red Cell Distribution Width 13.9 % (11.5-14.5); White Blood Count 9.8 K/mm3 (4.5-10.0)
[2021-10-25 06:15] LABS: Anion Gap 11 mmol/L (8-16); Blood Urea Nitrogen 11 mg/dL (7-17); Calcium 9.1 mg/dL (8.4-10.2); Carbon Dioxide 29 mmol/L (22-30); Chloride 101 mmol/L (98-107); Estimated CRCL calculation 62 ml/min; Estimated Glomerular Filt Rate > 60; Glucose 110 mg/dL (65-110); Potassium 3.6 mmol/L (3.4-5.0); Sodium 141 mmol/L (137-145)
[2021-10-25] MEDS: ALBUTEROL SULFATE NEB 2.5 MG/0.5 ML INH INHALATION ×4 (07:45→20:35)
[2021-10-25] MEDS: IPRATROPIUM BR 0.02% INH SOLN 0.5 MG/2.5 ML VIAL INHALATION ×4 (07:45→20:35)
--- NOTE | 2021-10-25 08:09 | PM.CNGS ---
Assessment and Plan Assessment and plan (1) Staphylococcus aureus bacteremia: Code(s): R78.81 - Bacteremia; B95.61 - Methicillin susceptible Staphylococcus aureus infection as the cause of diseases classified elsewhere Status: Acute Assessment and Plan: On Ancef (2) Bloodstream infection due to Port-A-Cath: Qualifiers: Encounter type: initial encounter Qualified Code(s): T80.211A - Bloodstream infection due to central venous catheter, initial encounter Code(s): T80.211A - Bloodstream infection due to central venous catheter, initial encounter Status: Acute Assessment and Plan: Port-A-Cath strongly suspected as source of SUSIE bacteremia. Requested to remove Port-A-Cath and will proceed this afternoon. Surgery scheduled for 3:00. History of Present Illness Consult details Consult date: 10/25/21 Reason for consult: central line ( infected Port-A-Cath) Narrative: patient has staph bacteremia with Port-A-Cath as suspected source. Not using Port-A-Cath. Requested to remove. [facility] Past Medical History Medical History (Updated 10/25/21 @ 08:10 by Leonard Cormier MD) Anemia Anxiety Arthritis Asthma Chronic obstructive pulmonary disease Degenerative disc disease Depression Emphysema of lung Gastroesophageal reflux disease Hepatitis C Treated in 2007. Hypertension Ovarian cancer Peripheral neuropathy due to chemotherapy Skin cancer Tobacco dependence Surgical History Surgical History (Updated 10/18/21 @ 23:45 by Mary Rashid PA-C) History of appendectomy History of hysterectomy History of lumpectomy of left breast History of open reduction and internal fixation (ORIF) procedure Ankle fracture. History of repair of right rotator cuff History of tonsillectomy Family History Family History Mother Family history of malignant neoplasm Family history of heart disease in male family member before age 55 Sibling Family history of malignant neoplasm of brain Father Family history of emphysema Social History Social History (Updated 10/18/21 @ 23:46 by Mary Rashid PA-C) Social History: Surrogate decision maker: Sai Martinez, son. Code status: Full code. Smoking packs per day: 1 Smoking cigarettes per day: 20.0 Years smoked: 55 Smoking pack-years: 55.00 Smoking status: Current every day smoker Tobacco type: cigarettes Second hand tobacco smoke exposure: No Additional smoking assessment comments: Down to 3 to 5 cigarettes a day. Alcohol intake: current Alcohol use details: Drinks socially and in moderation. Substance use: current Substance use type: marijuana Other substance usage details: Uses a few times a week. Additional living arrangements comments: The patient lives in a senior apartment in [place]. Additional occupation/education comments: Retired. Meds Home Medications and Allergies Home Medications Medication Instructions Recorded Confirmed Type Combivent Respimat 2 puff INHALATION DAILY PRN 06/10/21 10/18/21 History alprazolam 1 mg PO TID 06/10/21 10/18/21 History fluticasone propionate 1 spray INTRANASAL PRN PRN 06/10/21 10/18/21 History loratadine [Claritin] 10 mg PO DAILY PRN 06/10/21 10/18/21 History magnesium oxide 400 mg PO BID 06/10/21 10/18/21 History omeprazole 20 mg PO DAILY 06/10/21 10/18/21 History pyridoxine (vitamin B6) 100 mg PO DAILY 06/10/21 10/18/21 History rosuvastatin 5 mg PO DAILY 06/10/21 10/18/21 History trazodone 50 mg PO DAILY 06/10/21 10/18/21 History cholecalciferol (vitamin D3) 1,000 mcg PO DAILY 10/18/21 10/18/21 History ipratropium-albuterol 3 ml INHALATION QID 10/19/21 10/19/21 History Allergies Allergy/AdvReac Type Severity Reaction Status Date / Time ciprofloxacin Allergy Unknown Rash Verified 10/18/21 12:20 Vital Signs Vital Signs - 24 hr 10/24/21 11:47 10/24/21 11:54
[2021-10-25] MEDS: PYRIDOXINE HCL 50 MG TABLET 100 MG PO (08:20)
[2021-10-25] MEDS: ALPRAZolam (*CRX) 0.5 MG TABLET 1 MG PO ×2 (08:20→21:00)
[2021-10-25] MEDS: ROSUVASTATIN 5 MG TABLET PO (08:20)
[2021-10-25] MEDS: PANTOPRAZOLE 40 MG TABLET PO (08:20)
[2021-10-25] MEDS: LORATADINE 10 MG TABLET PO (08:20)
[2021-10-25] MEDS: LIDOCAINE 5% PATCH 1 PATCH TRANSDERM (08:20)
[2021-10-25] MEDS: MAGNESIUM OXIDE 400 MG TABLET PO ×2 (08:20→17:01)
[2021-10-25] MEDS: CHOLECALCIFEROL 1,000 UNITS TABLET 1000 UNITS PO (08:20)
--- NOTE | 2021-10-25 13:23 | PM.IMPN ---
Progress Note: A&P Assessment and Plan (1) Acute kidney injury: Code(s): N17.9 - Acute kidney failure, unspecified Status: Acute Assessment and Plan: improved DC IV hydration as patient has sign of fluid overload This has now resolved (2) Dehydration: Code(s): E86.0 - Dehydration Status: Acute Assessment and Plan: resolved (3) Leukocytosis: Code(s): D72.829 - Elevated white blood cell count, unspecified Status: Acute Assessment and Plan: Patient has history of ovarian cancer but also has abnormal UA patient is having fever and shivering started empiric IV antibiotics blood culture shows MSSA ID was consulted started on Ancef CT scan of the abdomen shows nephrolithiasis CT scan of the chest shows pneumonia echo showed pericardial effusion concern for fluid overload Echocardiogram normal if persistent i.d. suggest DAMEON Leukocytosis improving and normal today Remains afebrile continue Ancef as ordered and recommended by Infectious Disease 10/24/2021 spiked fever intermittently still. Possibility of port infection discussed with infectious disease port has not been in use since past 9 months patient opting port removal for shorter duration of antibiotic course. She will need Ancef for 2 weeks post port removal or ceftriaxone as another option. She will need a PICC line for IV antibiotics once port is removed 10/25/2021 discussed with the patient option of port removal with shorter antibiotic course following the port removal versus longer antibiotic course to salvage the port with the patient. Given unclear etiology of for bacteremia, port infection as a possibility entertained. She has opted for port removal as she has not used the port for over the past 9 months. We have this scheduled with General surgery team today at 3:[address] a PICC line/midline in the morning for further antibiotic treatment. I have discussed with Dr. silveira with regard to her antibiotic recommendation and has suggested to continue Ancef for 2 more weeks post port removal. She will also need help from care coordination with arrangements for her IV antibiotics. This will be discussed with the Care coordination Team. Home IV antibiotics with option Care he is being arranged for potential discharge tomorrow (4) Depression: Code(s): F32.A - Depression, unspecified Status: Acute Assessment and Plan: Patient reports worsening depression recently given some family issues. She has but briefly of suicide in the last several weeks but she has no plans and she is not actively suicidal. She will need to follow-up with Angel Luis Zaragoza NP as an outpatient. (5) Tobacco dependence: Code(s): F17.200 - Nicotine dependence, unspecified, uncomplicated Status: Acute Assessment and Plan: Counseling. (6) Anxiety: Code(s): F41.9 - Anxiety disorder, unspecified Status: Chronic Assessment and Plan: Continue alprazolam as needed. (7) Chronic obstructive pulmonary disease: Code(s): J44.9 - Chronic obstructive pulmonary disease, unspecified Status: Chronic Assessment and Plan: inhaler treatment (8) Pleural effusion: Code(s): J90 - Pleural effusion, not elsewhere classified Status: Acute Assessment and Plan: Associated with pericardial effusion status post IV Lasix complicated with hypotension started on IV albumin and midodrine blood pressure improved today Midodrine and IV albumin was stopped blood pressure remains stable hypotension likely due to IV diuretic use (9) Anemia: Code(s): D64.9 - Anemia, unspecified Status: Acute Assessment and Plan: Worsening likely from sepsis and bacteremia will continue to monitor no active signs of bleeding (10) Hypokalemia: Code(s): E87.6 - Hypokalemia Status: Acute Assessment and Plan: Likely from diuresis replace
--- NOTE | 2021-10-25 13:36 | PC.NURSE ---
To OR per bed, IV intact. Report given to MARCELA Soto.
--- NOTE | 2021-10-25 13:47 | WPDANESEPPF ---
Anes - Initial Pre Proc Eval Procedure: Operation Date: 10/25/21 15:00 Proposed Procedures p Removal Fidelina Cath - Leonard Cormier MD Date/Time: 10/25/21 13:47 Surgeon: Joseph [place] MD Pre Op Diagnosis: regan/depression/nonspecific leukocytosis Patient Data Age: 66 Gender: F Height: 1.65 m Weight: 66.2 kg Last Vital Signs Temp 36.2 C L 10/25/21 05:32 Pulse 88 10/25/21 11:26 Resp 20 10/25/21 11:26 BP 137/81 10/25/21 05:32 Pulse Ox 93 10/25/21 07:47 Allergies Allergy/AdvReac Type Severity Reaction Status Date / Time ciprofloxacin Allergy Unknown Rash Verified 10/18/21 12:20 Home Medications Medication Instructions Recorded Confirmed Type Combivent Respimat 2 puff INHALATION DAILY PRN 06/10/21 10/18/21 History alprazolam 1 mg PO TID 06/10/21 10/18/21 History fluticasone propionate 1 spray INTRANASAL PRN PRN 06/10/21 10/18/21 History loratadine [Claritin] 10 mg PO DAILY PRN 06/10/21 10/18/21 History magnesium oxide 400 mg PO BID 06/10/21 10/18/21 History omeprazole 20 mg PO DAILY 06/10/21 10/18/21 History pyridoxine (vitamin B6) 100 mg PO DAILY 06/10/21 10/18/21 History rosuvastatin 5 mg PO DAILY 06/10/21 10/18/21 History trazodone 50 mg PO DAILY 06/10/21 10/18/21 History cholecalciferol (vitamin D3) 1,000 mcg PO DAILY 10/18/21 10/18/21 History ipratropium-albuterol 3 ml INHALATION QID 10/19/21 10/19/21 History Laboratory Tests 10/25/21 10/25/21 05:40 05:40 WBC 9.8 K/mm3 K/mm3 (4.5-10.0) RBC 2.77 M/mm3 L M/mm3 (4.2-5.4) Hgb 8.7 g/dL L g/dL (12.0-15.0) Hct 26.1 % L % (37.0-47.0) MCV 94.2 fl fl (80-100) MCH 31.4 pg pg (26-34) MCHC 33.3 g/dl g/dl (32-36) RDW 13.9 % % (11.5-14.5) Plt Count 257 k/mm3 k/mm3 (150-375) MPV 10.1 fl fl (7.4-10.4) Immature Gran % (Auto) 1.9 % H % (0-0.5) Neut % (Auto) 71.6 % % (45.5-73.1) Lymph % (Auto) 16.9 % L % (18.3-44.2) Emanuel % (Auto) 8.0 % % (2.6-8.5) Eos % (Auto) 1.0 % % (0-4.4) Baso % (Auto) 0.6 % % (0.2-1.2) Lymph # (Auto) 1.66 K/mm3 K/mm3 (0.9-3.2) Emanuel # (Auto) 0.8 K/mm3 H K/mm3 (0.1-0.6) Eos # (Auto) 0.1 K/mm3 K/mm3 (0-0.3) Baso # (Auto) 0.1 K/mm3 K/mm3 (0.0-0.1) Abs Immat Gran (auto) 0.19 K/mm3 H K/mm3 (0.00-0.031) Absolute Neuts (auto) 7.0 K/mm3 H K/mm3 (1.3-6.7) Absolute Nucleated RBC 0.0 K/mm3 K/mm3 (0.0-0.012) Nucleated RBC % 0.0 % % (0.0-0.2) Sodium 141 mmol/L mmol/L (137-145) Potassium 3.6 mmol/L mmol/L (3.4-5.0) Chloride 101 mmol/L mmol/L (98-107) Carbon Dioxide 29 mmol/L mmol/L (22-30) Anion Gap 11 mmol/L mmol/L (8-16) BUN 11 mg/dL mg/dL (7-17) Creatinine 0.70 mg/dL mg/dL (0.7-1.0) Estim Creat Clear Calc 62 ml/min ml/min Estimated GFR > 60 (59 - ) Glucose 110 mg/dL mg/dL (65-110) Calcium 9.1 mg/dL mg/dL (8.4-10.2) Patient hx anesthesia problems: none Family hx anesthesia problems: none Results Review: All pre-operative results and documents have been reviewed as part of the pre-operative evaluation. [facility] Past Medical History Medical History Anemia Anxiety Arthritis Asthma Chronic obstructive pulmonary disease Degenerative disc disease Depression Emphysema of lung Gastroesophageal reflux disease Hepatitis C Treated in 2007. Hypertension Ovarian cancer Peripheral neuropathy due to chemotherapy Skin cancer Tobacco dependence Surgical History Surgical History History of appendectomy History of hysterectomy History of lumpectomy of left breast History of open reduction and internal fixation (ORIF) procedure Ankle fracture. History of repair of right rotator cuff History of tonsillectomy Family
[2021-10-25] MEDS: LACTATED RINGERS 1,000 ML 30 ML IV CONT (13:56)
--- NOTE | 2021-10-25 15:21 | WPDHPUPDATE1 ---
History and Physical Update Update Date/Time: 10/25/21 15:21 History and Physical has been reviewed, including an updated exam of the patient. There are NO changes in the patient's condition. Risks, benefits, and alternatives have been discussed and questions answered. Patient agrees to proceed with procedure.
--- NOTE | 2021-10-25 16:06 | W.PM.PROC2 ---
Procedure Note - Detailed Date of Procedure 10/25/21 Pre-op Diagnosis Staph bacteremia, infected Port-A-Cath Post-op Diagnosis same Procedure Performed Removal left subclavian Port-A-Cath Surgeon Leonard Cormier MD Anesthesia MAC and local (0.5% Marcaine plain) Indications Patient was noted to have Staph bacteremia and left subclavian Port-A-Cath is most likely source. She is taken to surgery now for removal of the Port-A-Cath. Findings Intact left subclavian Port-A-Cath Description of Procedure Patient was taken to surgery and IV sedation was administered. The left subclavian area was prepped and draped. The old scar was actually below the Port-A-Cath. I infiltrated local into the area of the old scar and all around the Port-A-Cath itself. Incision was made and dissection was carried up onto the Port-A-Cath reservoir. I dissected the reservoir free from the fibrous capsule encircling it. There were no sutures keeping in place and it came out easily with the entire vascular tubing. There was no back bleeding from the site. I then excised the fibrous capsule removing nearly all of it. I used cautery for hemostasis. The wound was closed in layers with 3-0 Monocryl. The skin was closed with subcuticular interrupted 4-0 Monocryl. The wound was dressed with Exofin surgical adhesive. Patient was awakened and taken to recovery in good condition. Counts were correct x2. Estimated Blood Loss 5 Urine Output 100 Drains No Packing No Pathology none sent Complications No immediate complications Condition stable Disposition PACU
--- NOTE | 2021-10-25 16:54 | PC.NURSE ---
Returned from OR per bed. Report received from MARCELA Bearden.
[2021-10-25] MEDS: HYDROcodone/acetaminophen (*CRX) 5-325 MG TABLET 1 TAB PO (17:01)
[2021-10-25] MEDS: traZODone HCL 50 MG TABLET PO (21:00)
[2021-10-26] MEDS: HYDROcodone/acetaminophen (*CRX) 5-325 MG TABLET 1 TAB PO ×2 (02:42→08:25)
[2021-10-26] MEDS: LORATADINE 10 MG TABLET PO (02:42)
[2021-10-26] MEDS: ceFAZolin 2 GM/D5W 50 ML 2 GM/50 ML BAG IVPB ×2 (05:04→14:13)
[2021-10-26 06:00] VITALS: BP 137/69; PULSE 78; RESP 16; TEMP 36.1; O2SAT 94
[2021-10-26] MEDS: ROSUVASTATIN 5 MG TABLET PO (08:21)
[2021-10-26] MEDS: PYRIDOXINE HCL 50 MG TABLET 100 MG PO (08:21)
[2021-10-26] MEDS: PANTOPRAZOLE 40 MG TABLET PO (08:21)
[2021-10-26] MEDS: CHOLECALCIFEROL 1,000 UNITS TABLET 1000 UNITS PO (08:21)
[2021-10-26] MEDS: MAGNESIUM OXIDE 400 MG TABLET PO (08:21)
[2021-10-26] MEDS: ENOXAPARIN 40 MG/0.4 ML SYRINGE SUB-Q (08:22)
[2021-10-26] MEDS: LIDOCAINE 5% PATCH 1 PATCH TRANSDERM (08:22)
[2021-10-26] MEDS: ALPRAZolam (*CRX) 0.5 MG TABLET 1 MG PO ×2 (08:25→14:21)
--- NOTE | 2021-10-26 08:47 | PCNWS ---
Weekly nutritional screen. Patient is tolerating current diet with adequate intake. No weight loss reported. No nutritional needs at this time.
[2021-10-26 10:23] LABS: Basophils Percent Auto 0.4 % (0.2-1.2); Eosinophils Absolute Auto 0.2 K/mm3 (0-0.3); Eosinophils Percent Auto 1.9 % (0-4.4); Hematocrit 26.7 % (37.0-47.0); Hemoglobin 8.9 g/dL (12.0-15.0); Immature Granulocyte Absolute 0.16 K/mm3 (0.00-0.031); Immature Granulocyte Percent A 1.6 % (0-0.5); Lymphocytes Absolute Auto 1.86 K/mm3 (0.9-3.2); Lymphocytes Percent Auto 18.9 % (18.3-44.2); Mean Corpuscular HGB Conc 33.3 g/dl (32-36); Mean Corpuscular Hemoglobin 30.9 pg (26-34); Mean Corpuscular Volume 92.7 fl (80-100); Mean Platelet Volume 9.5 fl (7.4-10.4); Monocytes Absolute Auto 0.6 K/mm3 (0.1-0.6); Monocytes Percent Auto 6.3 % (2.6-8.5); Neutrophils Percent Auto 70.9 % (45.5-73.1); Platelet Count Result 331 k/mm3 (150-375); Red Blood Count 2.88 M/mm3 (4.2-5.4); Red Cell Distribution Width 13.8 % (11.5-14.5); White Blood Count 9.8 K/mm3 (4.5-10.0)
[2021-10-26] MEDS: IPRATROPIUM BR 0.02% INH SOLN 0.5 MG/2.5 ML VIAL INHALATION (10:32)
[2021-10-26] MEDS: ALBUTEROL SULFATE NEB 2.5 MG/0.5 ML INH INHALATION (10:32)
[2021-10-26 10:35] VITALS: PULSE 86; RESP 20; O2SAT 94
[2021-10-26 10:36] LABS: Alanine Aminotransferase 13 U/L (4-35); Albumin Level 4.3 g/dL (3.5-5.1); Alkaline Phosphatase 104 U/L (38-126); Anion Gap 10 mmol/L (8-16); Aspartate Amino Transferase 29 U/L (14-36); Bilirubin,Total 0.5 mg/dL (0.2-1.3); Blood Urea Nitrogen 10 mg/dL (7-17); Calcium 9.3 mg/dL (8.4-10.2); Carbon Dioxide 28 mmol/L (22-30); Chloride 99 mmol/L (98-107); Estimated CRCL calculation 62 ml/min; Estimated Glomerular Filt Rate > 60; Glucose 107 mg/dL (65-110); Potassium 3.6 mmol/L (3.4-5.0); Sodium 137 mmol/L (137-145)
[2021-10-26 10:44] VITALS: PULSE 82; RESP 20
--- NOTE | 2021-10-26 10:51 | PM.DS ---
DS: Admitting Diagnosis Discharge Date 10/26/21 Admitting Diagnosis bacteremia DS: Discharge Diagnosis Discharge Diagnosis (1) Bacteremia: Code(s): R78.81 - Bacteremia Status: Acute (2) CAP (community acquired pneumonia): Code(s): J18.9 - Pneumonia, unspecified organism Status: Acute (3) Acute kidney injury: Code(s): N17.9 - Acute kidney failure, unspecified Status: Acute (4) Dehydration: Code(s): E86.0 - Dehydration Status: Acute (5) Leukocytosis: Code(s): D72.829 - Elevated white blood cell count, unspecified Status: Acute (6) Depression: Code(s): F32.A - Depression, unspecified Status: Acute (7) Tobacco dependence: Code(s): F17.200 - Nicotine dependence, unspecified, uncomplicated Status: Acute (8) Anxiety: Code(s): F41.9 - Anxiety disorder, unspecified Status: Chronic (9) Chronic obstructive pulmonary disease: Code(s): J44.9 - Chronic obstructive pulmonary disease, unspecified Status: Chronic (10) Pleural effusion: Code(s): J90 - Pleural effusion, not elsewhere classified Status: Acute (11) Anemia: Code(s): D64.9 - Anemia, unspecified Status: Acute (12) Hypokalemia: Code(s): E87.6 - Hypokalemia Status: Acute DS: Summary Hospital Course Hospital Course: Date of service 10/26/2021 Patient is a 66-year-old female who presented emergency room on 10/18/2021 for depression, fever and overall feeling unwell. Vitals in the ER were temperature 97.7? F, pulse 88, respiratory rate 16, blood pressure 170/100, pulse ox 97 on room air. Initial white blood cell count 21.4, hemoglobin 13.2, hematocrit 39.1, platelets 193. BMP showed creatinine 1.3. UA not suspicious for UTI. Influenza screen negative. Chest x-ray negative. Patient was admitted to the hospitalist service. Her blood cultures became positive and she was started on antibiotics. They were later identified as Staph aureus. Infectious Disease was consulted and recommended IV Ancef. Repeat blood cultures again showed Staph aureus so she continued to be hospitalized. The source of the infection was unknown but the patient had a port that could have been the source of the infection and was at risk for causing reinfection. After speaking to the patient with her options, they have decided to removed the port. She underwent a port removal on 10/25/2021. Additional workup was done and a CT abdomen and pelvis showed no acute findings. A chest CT showed right upper lobe medial subsegmental airspace disease which could be acute bacterial pneumonia. Upon further review, the patient states that she has been coughing for a few weeks. She was given Ancef for her bacteremia and doxycycline was added for pneumonia coverage. I do not suspect the pneumonia to be the source of the bacteremia but possibly mild co infection. Nevertheless, the patient had no suicidal ideations and no plan. She said she just stated she wanted to harm herself on admission a because she felt so sick but now she is feeling much better. She has never had actual suicidal ideations and she regrets making that statement. She understands if she ever has them she is going to call 911 or come back to emergency room. She does have a psychiatrist and has tried some medication for depression. She is going to follow up with her primary care physician and come back if her cough or pneumonia does not get better. Because she needs 2 additional weeks of IV antibiotics she was given a PICC line and discharged to [facility]. This PICC line is going to be removed after antibiotics are complete. Patient was educated about the worrisome signs and symptoms to come back to emergency room for and was discharged in stable condition. Time Spent with Patient Time attestation: Total time spent providing and/or coordinating discharge services: Exam Narrative: skin: prev
[2021-10-26 14:22] VITALS: BP 105/83; PULSE 92; RESP 18; TEMP 36.2; O2SAT 100
[2021-10-26 15:29] LABS: EDCOVIDSCREEN Negative (Negative)
--- NOTE | 2021-10-28 14:15 | PC.NURSE ---
#3 BLood cx are negative
== END 2021-10-26 18:45 | DRG 314 ==
LOC: ANHED 12:26 → ANH3MED 16:16
PROVIDERS: Internal Medicine; Physician Assistant; Surgery; Admitting Provider Family Medicine; Emergency Provider Emergency Medicine; PCP Physician Assistant; Visit Provider Physician Assistant
PROC: 0JPT0WZ Removal of Totally Implantable Vascular Access Device from Trunk Subcutaneous Tissue and Fascia, Open Approach (ICD-10-PCS; CPT 36589; principal; 2021-10-25 15:00)
DX: T80.211A Bloodstream infection due to central venous catheter, initial encounter (principal); J15.9 Unspecified bacterial pneumonia; R78.81 Bacteremia; N17.9 Acute kidney failure, unspecified; J90 Pleural effusion, not elsewhere classified; Z20.822 Contact with and (suspected) exposure to COVID-19; B95.61 Methicillin susceptible Staphylococcus aureus infection as the cause of diseases classified elsewhere; E86.0 Dehydration; D72.829 Elevated white blood cell count, unspecified; F32.A Depression, unspecified; F41.9 Anxiety disorder, unspecified; D64.9 Anemia, unspecified; E87.6 Hypokalemia; M19.90 Unspecified osteoarthritis, unspecified site; J43.9 Emphysema, unspecified; I10 Essential (primary) hypertension; F17.200 Nicotine dependence, unspecified, uncomplicated; Z86.19 Personal history of other infectious and parasitic diseases; Z85.828 Personal history of other malignant neoplasm of skin; Z85.43 Personal history of malignant neoplasm of ovary; Z90.49 Acquired absence of other specified parts of digestive tract; Z90.710 Acquired absence of both cervix and uterus
CPT/HCPCS: 36415; 36569; 71046; 71250; 74176; 80048; 80053; 80076; 80202; 80307; 81001; 82565; 83735; 84439; 84443; 84480; 85025; 85055; 87040; 87077; 87147; 87186; 87426; 87804; 93306; 94640; 96361; 96374; 96375; 96376; 97161; 97165; 99285; A9270; C1751; C9803; G0378; J0131; J0690; J0696; J1642; J1650; J1885; J1940; J2270; J2405; J2704; J3010; J3370; J7030; J7120; P9047

== ENCOUNTER 2021-11-16 13:30 | Emergency (ER) | payer MEDICARE, MEDICAID, SELFPAY ==
[2021-11-16 13:42] VITALS: BP 116/71; PULSE 77; RESP 16; TEMP 36.5; O2SAT 97
--- NOTE | 2021-11-16 14:35 | ED.EAR ---
HPI - Ear Problem General Chief complaint: Ear Stated complaint: EAR PAIN Time Seen by Provider: 11/16/21 14:36 Source: patient, RN notes reviewed and old records reviewed Mode of arrival: ambulatory Limitations: no limitations History of Present Illness HPI Narrative: 66-year-old female presents to the [facility] with complaints of ear pain for 3 days. Patient states that she woke up this morning and there was drainage coming from her ear. Has history of chronic ear issues but has never seen a ENT doctor. Has been going through chemotherapy, sepsis and just had her PICC line removed. Has been on antibiotics for several weeks. MD Complaint: ear pain Related Data Home Medications Medication Instructions Recorded Confirmed Combivent Respimat 2 puff INHALATION DAILY PRN 06/10/21 10/18/21 fluticasone propionate 1 spray INTRANASAL PRN PRN 06/10/21 10/18/21 loratadine [Claritin] 10 mg PO DAILY PRN 06/10/21 10/18/21 magnesium oxide 400 mg PO BID 06/10/21 10/18/21 omeprazole 20 mg PO DAILY 06/10/21 10/18/21 pyridoxine (vitamin B6) 100 mg PO DAILY 06/10/21 10/18/21 rosuvastatin 5 mg PO DAILY 06/10/21 10/18/21 trazodone 50 mg PO DAILY 06/10/21 10/18/21 cholecalciferol (vitamin D3) 1,000 mcg PO DAILY 10/18/21 10/18/21 ipratropium-albuterol 3 ml INHALATION QID 10/19/21 10/19/21 Allergies Allergy/AdvReac Type Severity Reaction Status Date / Time ciprofloxacin Allergy Unknown Rash Verified 11/16/21 14:45 Review of Systems Review of Systems: All systems reviewed & are unremarkable except as noted in HPI and below Constitutional: Constitutional: Reports no additional constitutional complaints, Denies chills, Denies fatigue, Denies fever(s) and Denies weakness Eyes: Eyes: Reports no additional eye complaints ENT: Reports as per HPI Comments: Left ear pain Cardiovascular: Cardiovascular: Reports no additional cardiovascular complaints and Denies chest pain Respiratory: Respiratory: Reports no additional respiratory complaints, Denies cough and Denies dyspnea Gastrointestinal: Gastrointestinal: Reports no additional gastrointestinal complaints, Denies abdominal pain, Denies nausea and Denies vomiting Musculoskeletal: Musculoskeletal: Reports no additional musculoskeletal complaints Integumentary/Breasts: Skin/Breast: Reports system reviewed and no additional complaints, except as docu Neurologic: Reports system reviewed and no additional complaints, except as documented Psychiatric: Psychiatric: Reports no additional psychiatric complaints Allergic/Immunologic: Allergic/Immunologic: Reports no additional allergic/immunologic complaints [facility] Past Medical History Medical History Anemia Anxiety Arthritis Asthma Chronic obstructive pulmonary disease Degenerative disc disease Depression Emphysema of lung Gastroesophageal reflux disease Hepatitis C Treated in 2007. Hypertension Ovarian cancer Peripheral neuropathy due to chemotherapy Skin cancer Tobacco dependence Surgical History Surgical History History of appendectomy History of hysterectomy History of lumpectomy of left breast History of open reduction and internal fixation (ORIF) procedure Ankle fracture. History of repair of right rotator cuff History of tonsillectomy Family History Family History Mother Family history of malignant neoplasm Family history of heart disease in male family member before age 55 Sibling Family history of malignant neoplasm of brain Father Family history of emphysema Social History Social History Social History: Surrogate decision maker: Sai Martinez, son. Code status: Full code. Smoking packs per day: 1 Smoking cigarettes per day: 20.0 Years smoked: 55 Smoking pack-years: 55.00 Smoking status: Lara
== END 2021-11-16 14:50 | disposition home or self-care (01) ==
PROVIDERS: Emergency Provider Nurse Practitioner; PCP Physician Assistant
DX: H92.02 Otalgia, left ear (principal); D64.9 Anemia, unspecified; M19.90 Unspecified osteoarthritis, unspecified site; J44.9 Chronic obstructive pulmonary disease, unspecified; K21.9 Gastro-esophageal reflux disease without esophagitis; Z86.19 Personal history of other infectious and parasitic diseases; F17.210 Nicotine dependence, cigarettes, uncomplicated; F12.90 Cannabis use, unspecified, uncomplicated; I10 Essential (primary) hypertension; G62.0 Drug-induced polyneuropathy; T45.1X5A Adverse effect of antineoplastic and immunosuppressive drugs, initial encounter
CPT/HCPCS: 99213; G0463

== ENCOUNTER 2022-02-27 10:30 | Emergency (ER) | payer MEDICARE, MEDICAID, SELFPAY ==
[2022-02-27] VITALS (12 sets, daily range): BP systolic 89–124; BP diastolic 56–82; PULSE 77–106; RESP 14–31; TEMP 36.6; O2SAT 97–100
--- NOTE | 2022-02-27 11:26 | ED.GENADULT ---
HPI - General Adult General Chief complaint: Psychiatric Symptoms <Kenyatta Morales PA-C - Last Filed: 02/27/22 19:20> Stated complaint: overdose, SI <Kenyatta Morales PA-C - Last Filed: 02/27/22 19:20> Time Seen by Provider: 02/27/22 11:01 <Kenyatta Morales PA-C - Last Filed: 02/27/22 19:20> Source: patient <Kenyatta Morales PA-C - Last Filed: 02/27/22 19:20> Mode of arrival: EMS <ADE Mora Last Filed: 02/27/22 19:20> Limitations: no limitations <Kenyatta Morales PA-C - Last Filed: 02/27/22 19:20> History of Present Illness HPI narrative: Patient is a 66-year-old female who presents the ED via EMS with report of depression and anxiety. Patient reports longstanding history of depression anxiety. She reports her psychiatrist has been weaning her off of her Xanax over the past week and a half. She has been on Xanax for 8 years reportedly. Over the past couple weeks she has had increased depression anxiety and suicidal ideation. She states she would attempt to take pills if she wanted to commit suicide. She does not think she has ever tried to commit suicide before but states she did have her stomach pumped one time years ago. No homicidal ideation. No AVH. Patient denies any cough, chest pain, shortness of breath, nausea, vomiting, abdominal pain. No other drugs or alcohol. Patient reports she has been seen at several different facilities, including [facility] and [place], over the past week. Patient initially denied taking any extra psychiatric medication today. Upon reevaluation she does report that she took 12-15 trazodone 50mg around 10:30 AM this morning in an attempt to harm herself. Poison control will be contacted. <Kenyatta Morales PA-C - Last Filed: 02/27/22 19:20> Related Data Home medications: Home Medications Medication Instructions Recorded Confirmed Combivent Respimat 2 puff INHALATION DAILY PRN 06/10/21 10/18/21 fluticasone propionate 1 spray INTRANASAL PRN PRN 06/10/21 10/18/21 loratadine [Claritin] 10 mg PO DAILY PRN 06/10/21 10/18/21 magnesium oxide 400 mg PO BID 06/10/21 10/18/21 omeprazole 20 mg PO DAILY 06/10/21 10/18/21 pyridoxine (vitamin B6) 100 mg PO DAILY 06/10/21 10/18/21 rosuvastatin 5 mg PO DAILY 06/10/21 10/18/21 trazodone 50 mg PO DAILY 06/10/21 10/18/21 cholecalciferol (vitamin D3) 1,000 mcg PO DAILY 10/18/21 10/18/21 ipratropium-albuterol 3 ml INHALATION QID 10/19/21 10/19/21 <Kenyatta Morales PA-C - Last Filed: 02/27/22 19:20> Allergies/adverse reactions: Allergies Allergy/AdvReac Type Severity Reaction Status Date / Time ciprofloxacin Allergy Unknown Rash Verified 11/16/21 14:45 <Kenyatta Morales PA-C - Last Filed: 02/27/22 19:20> Review of Systems Review of Systems: CONSTITUTIONAL: Denies fever, chills. CARDIOVASCULAR: Denies chest pain. RESPIRATORY: Denies cough or dyspnea. GASTROINTESTINAL: Denies abdominal pain, nausea, vomiting, or diarrhea. NEUROLOGIC: Denies headache, numbness, or weakness. PSYCHIATRIC: Reports SI, anxiety, and depression. Denies HI, AVH. <Kenyatta Morales PA-C - Last Filed: 02/27/22 19:20> All systems reviewed & are unremarkable except as noted in HPI and below <Kenyatta Morales PA-C - Last Filed: 02/27/22 19:20> [facility] Past Medical History Medical History: Medical History Anemia Anxiety Arthritis Asthma Chronic obstructive pulmonary disease Degenerative disc disease Depression Emphysema of lung Gastroesophageal reflux disease Hepatitis C Treated in 2007. Hypertension Ovarian cancer Peripheral neuropathy due to chemotherapy Skin cancer Tobacco dependence <Kenyatta Morales PA-C - Last Filed: 02/27/22 19:20> Surgical History Surgical History: Surgical History History of appendectomy History of hysterectomy History of lumpectomy of left breast History of open reducti
[2022-02-27 11:35] LABS: Basophils Percent Auto 0.3 % (0.2-1.2); Hematocrit 38.5 % (37.0-47.0); Hemoglobin 12.9 g/dL (12.0-15.0); Immature Granulocyte Absolute 0.03 K/mm3 (0.00-0.031); Immature Granulocyte Percent A 0.4 % (0-0.5); Lymphocytes Absolute Auto 1.15 K/mm3 (0.9-3.2); Lymphocytes Percent Auto 14.6 % (18.3-44.2); Mean Corpuscular HGB Conc 33.5 g/dl (32-36); Mean Corpuscular Hemoglobin 31.2 pg (26-34); Mean Corpuscular Volume 93.2 fl (80-100); Mean Platelet Volume 9.4 fl (7.4-10.4); Monocytes Absolute Auto 0.4 K/mm3 (0.1-0.6); Monocytes Percent Auto 4.8 % (2.6-8.5); Neutrophils Absolute Auto 6.3 K/mm3 (1.3-6.7); Neutrophils Percent Auto 79.9 % (45.5-73.1); Platelet Count Result 214 k/mm3 (150-375); Red Blood Count 4.13 M/mm3 (4.2-5.4); Red Cell Distribution Width 13.6 % (11.5-14.5); White Blood Count 7.9 K/mm3 (4.5-10.0)
[2022-02-27 11:44] LABS: Ethanol < 10 mg/dL (<10)
[2022-02-27 11:45] LABS: Alanine Aminotransferase 15 U/L (4-35); Alkaline Phosphatase 74 U/L (38-126); Anion Gap 11 mmol/L (8-16); Aspartate Amino Transferase 29 U/L (14-36); Bilirubin,Total 0.5 mg/dL (0.2-1.3); Blood Urea Nitrogen 18 mg/dL (7-17); Calcium 9.5 mg/dL (8.4-10.2); Carbon Dioxide 22 mmol/L (22-30); Chloride 104 mmol/L (98-107); Estimated CRCL calculation 70 ml/min; Estimated Glomerular Filt Rate > 60; Glucose 127 mg/dL (65-110); Potassium 3.8 mmol/L (3.4-5.0); Sodium 137 mmol/L (137-145)
[2022-02-27 12:03] LABS: Add Urine Microscopic? YES; Appearance Urine Cloudy (Clear); Bilirubin Urine Negative (Negative); Blood Urine Negative (Negative); Color Urine Yellow (Yellow); Glucose Urine UA Negative (Negative); Ketones Urine 1+ mg/dL (Negative); Leukocyte Esterase Ur Negative LEU/UL (Negative); Mucus Urine Heavy /lpf; Nitrate Urine Negative (Negative); Protein Urine 2+ mg/dL (Negative); RBC Urine 0-2 /hpf (0-2); Specific Grav Ur 1.023 (1.001-1.035); Squamous Epithelial Cell Urine Rare /hpf (Few); WBC Urine 0-3 /hpf
[2022-02-27 12:14] LABS: Amphetamine Screen Urine Negative (Negative); Barbiturate Screen Urine Negative (Negative); Benzodiazepines Screen Urine Negative (Negative); Cannabinoid Screen Urine Negative (Negative); Cocaine Screen Urine Negative (Negative); Methadone Screen Urine Negative (Negative); Opiate Screen Urine Negative (Negative); Phencyclidine Screen Urine Negative (Negative)
[2022-02-27] MEDS: LORazepam (*CRX) 0.5 MG TABLET PO (13:42)
--- NOTE | 2022-02-27 14:35 | ECG_ITS ---
Measurements Intervals [place] Rate: 84 P: 82 RI: 152 QRS: 90 QRSD: 86 T: 85 QT: 378 QTc: 448 Interpretive Statements SINUS RHYTHM NONSPECIFIC ST AND T-WAVE ABNORMALITIES ABNORMAL ECG NO PREVIOUS ECG AVAILABLE FOR COMPARISON Electronically Signed On 02-28-2022 13:54:34 CDT by Antonio Wilkes M.D.
--- NOTE | 2022-02-27 16:53 | PC.NURSE ---
Crisis here to see patient at this time. Per drywall worker, they formulated a safety plan and gave detox resources.
== END 2022-02-27 18:24 | disposition home or self-care (01) ==
PROVIDERS: Emergency Provider Emergency Medicine; PCP Physician Assistant
DX: T43.212A Poisoning by selective serotonin and norepinephrine reuptake inhibitors, intentional self-harm, initial encounter (principal); F32.A Depression, unspecified; F41.9 Anxiety disorder, unspecified; J43.9 Emphysema, unspecified; J45.909 Unspecified asthma, uncomplicated; K21.9 Gastro-esophageal reflux disease without esophagitis; M19.90 Unspecified osteoarthritis, unspecified site; F17.210 Nicotine dependence, cigarettes, uncomplicated; Z86.19 Personal history of other infectious and parasitic diseases; Z85.43 Personal history of malignant neoplasm of ovary; Z85.828 Personal history of other malignant neoplasm of skin; Z86.2 Personal history of diseases of the blood and blood-forming organs and certain disorders involving the immune mechanism; R94.31 Abnormal electrocardiogram [ECG] [EKG]
CPT/HCPCS: 36415; 51701; 80053; 80307; 81001; 84443; 85025; 93005; 99284; A9270

== ENCOUNTER 2022-03-03 21:08 | Emergency (ER) | payer MEDICARE, MEDICAID, SELFPAY ==
[2022-03-03 21:15] VITALS: BP 116/79; PULSE 99; RESP 18; TEMP 36.8; O2SAT 96
--- NOTE | 2022-03-03 21:42 | ED.GENADULT ---
HPI - General Adult General Chief complaint: Psychiatric Symptoms Stated complaint: SI Time Seen by Provider: 03/03/22 21:23 Source: patient Mode of arrival: ambulatory Limitations: no limitations History of Present Illness HPI narrative: 66-year-old female presents emergency room secondary to depression that is longstanding. She just got out of [facility]. She states she left there they were not doing anything for me . Now she is depressed and wants to kill herself. She is contemplating cutting herself with a knife at home. She states she took 2 doses of her trazodone today. She denies any drug or alcohol use. She states she wants to go somewhere where she can get some care. Reading prior notes it appears that she has had a history of some drug-seeking behaviors specifically wanting things to help with anxiety. Related Data Home Medications Medication Instructions Recorded Confirmed Combivent Respimat 2 puff INHALATION DAILY PRN 06/10/21 10/18/21 fluticasone propionate 1 spray INTRANASAL PRN PRN 06/10/21 10/18/21 loratadine [Claritin] 10 mg PO DAILY PRN 06/10/21 10/18/21 magnesium oxide 400 mg PO BID 06/10/21 10/18/21 omeprazole 20 mg PO DAILY 06/10/21 10/18/21 pyridoxine (vitamin B6) 100 mg PO DAILY 06/10/21 10/18/21 rosuvastatin 5 mg PO DAILY 06/10/21 10/18/21 trazodone 50 mg PO DAILY 06/10/21 10/18/21 cholecalciferol (vitamin D3) 1,000 mcg PO DAILY 10/18/21 10/18/21 ipratropium-albuterol 3 ml INHALATION QID 10/19/21 10/19/21 Allergies Allergy/AdvReac Type Severity Reaction Status Date / Time ciprofloxacin Allergy Unknown Rash Verified 11/16/21 14:45 Review of Systems Review of Systems: CONSTITUTIONAL: Denies fever, chills, or sweats. EYES: Denies visual changes, redness, or discharge. ENT: Denies rhinorrhea, congestion, sore throat, or otalgia. CARDIOVASCULAR: Denies chest pain, palpitations, or edema. RESPIRATORY: Denies cough or dyspnea. GASTROINTESTINAL: Denies abdominal pain, nausea, vomiting, or diarrhea. GENITOURINARY: Denies dysuria or hematuria. SKIN: Denies rash or itching. MUSCULOSKELETAL: Denies back pain, joint pain, or myalgia. NEUROLOGIC: Denies headache, numbness, or weakness. PSYCHIATRIC: Depression with suicidal ideation [facility] Past Medical History Medical History Anemia Anxiety Arthritis Asthma Chronic obstructive pulmonary disease Degenerative disc disease Depression Emphysema of lung Gastroesophageal reflux disease Hepatitis C Treated in 2007. Hypertension Ovarian cancer Peripheral neuropathy due to chemotherapy Skin cancer Tobacco dependence Surgical History Surgical History History of appendectomy History of hysterectomy History of lumpectomy of left breast History of open reduction and internal fixation (ORIF) procedure Ankle fracture. History of repair of right rotator cuff History of tonsillectomy Family History Family History Mother Family history of malignant neoplasm Family history of heart disease in male family member before age 55 Sibling Family history of malignant neoplasm of brain Father Family history of emphysema Social History Social History Social History: Surrogate decision maker: Sai Martinez, son. Code status: Full code. Smoking packs per day: 1 Smoking cigarettes per day: 20.0 Years smoked: 55 Smoking pack-years: 55.00 Smoking status: Current some day smoker Tobacco type: cigarettes Second hand tobacco smoke exposure: No Additional smoking assessment comments: Down to 3 to 5 cigarettes a day. Alcohol intake: current Alcohol use details: Drinks socially and in moderation. Substance use: current Substance use type: marijuana and painkillers Other substance usage details: Uses a few times a week. Addit
[2022-03-03 21:47] LABS: Basophils Absolute Auto 0.1 K/mm3 (0.0-0.1); Basophils Percent Auto 0.4 % (0.2-1.2); Eosinophils Absolute Auto 0.5 K/mm3 (0-0.3); Eosinophils Percent Auto 4.8 % (0-4.4); Hematocrit 33.9 % (37.0-47.0); Hemoglobin 11.9 g/dL (12.0-15.0); Immature Granulocyte Absolute 0.04 K/mm3 (0.00-0.031); Immature Granulocyte Percent A 0.4 % (0-0.5); Lymphocytes Absolute Auto 1.43 K/mm3 (0.9-3.2); Lymphocytes Percent Auto 12.8 % (18.3-44.2); Mean Corpuscular HGB Conc 35.1 g/dl (32-36); Mean Corpuscular Hemoglobin 31.7 pg (26-34); Mean Corpuscular Volume 90.4 fl (80-100); Mean Platelet Volume 8.9 fl (7.4-10.4); Monocytes Absolute Auto 0.8 K/mm3 (0.1-0.6); Neutrophils Absolute Auto 8.3 K/mm3 (1.3-6.7); Neutrophils Percent Auto 74.6 % (45.5-73.1); Platelet Count Result 262 k/mm3 (150-375); Red Blood Count 3.75 M/mm3 (4.2-5.4); Red Cell Distribution Width 13.8 % (11.5-14.5); White Blood Count 11.2 K/mm3 (4.5-10.0)
[2022-03-03 21:49] LABS: Appearance Urine Clear (Clear); Bilirubin Urine Negative (Negative); Blood Urine Negative (Negative); Color Urine Yellow (Yellow); Glucose Urine UA Negative (Negative); Ketones Urine Negative (Negative); Leukocyte Esterase Ur Trace LEU/UL (Negative); Nitrate Urine Negative (Negative); Protein Urine Negative (Negative); Specific Grav Ur 1.015 (1.001-1.035); Urobilinogen Urine 0.2 mg/dL (<2.0); pH Urine 6.5 (5.0-9.0)
[2022-03-03 21:53] LABS: RBC Urine 0-2 /hpf (0-2); Squamous Epithelial Cell Urine Occasional /hpf (Few)
[2022-03-03 21:55] LABS: Add Urine Microscopic? NO
[2022-03-03 21:58] LABS: Ethanol < 10 mg/dL (<10)
[2022-03-03 22:01] LABS: Alanine Aminotransferase 18 U/L (4-35); Albumin Level 4.5 g/dL (3.5-5.1); Alkaline Phosphatase 83 U/L (38-126); Anion Gap 8 mmol/L (8-16); Aspartate Amino Transferase 37 U/L (14-36); Bilirubin,Total 0.2 mg/dL (0.2-1.3); Blood Urea Nitrogen 18 mg/dL (7-17); Calcium 9.2 mg/dL (8.4-10.2); Carbon Dioxide 25 mmol/L (22-30); Chloride 106 mmol/L (98-107); Estimated Glomerular Filt Rate > 60; Glucose 111 mg/dL (65-110); Potassium 3.9 mmol/L (3.4-5.0); Sodium 139 mmol/L (137-145)
[2022-03-03 22:27] LABS: SARS-CoV-2 RNA PCR Negative
--- NOTE | 2022-03-04 04:27 | PC.NURSE ---
Crisis stating that [facility] may accept but wants a urine test. Pt has had hysterectomy in 2016 with ovarian cancer.
[2022-03-04 05:32] LABS: Amphetamine Screen Urine Negative (Negative); Barbiturate Screen Urine Negative (Negative); Benzodiazepines Screen Urine Negative (Negative); Cannabinoid Screen Urine Negative (Negative); Cocaine Screen Urine Negative (Negative); Methadone Screen Urine Negative (Negative); Opiate Screen Urine Negative (Negative); Phencyclidine Screen Urine Negative (Negative)
--- NOTE | 2022-03-04 06:38 | PC.NURSE ---
0530-Rn received call from Mary RN for nurse to nurse report from [facility] @[phone]. will call back if accepting, but full report given. 0546-Call from [facility]) requesting full copy of UDS due to the fax not having all of the information on it. RN did fax over information to [phone]. 0601- call back from Terrie at [facility] in admitting/[phone] stating that pt has been accepted to Dr. Campos and can leave anytime after 0830AM today. requested that upon leaving the ER the nurse calls [phone] to give updated nurse report..
--- NOTE | 2022-03-04 07:22 | PC.NURSE ---
0613- Call back from [facility], stating that they did not currently have any open beds, but should have some discharges this AM and will kelsi back if she is accepted. 0723- RN call Crisis back, spoke with [facility] to notify that [facility] has accepted pt and we are currently working on transport for the pt now.
[2022-03-04 09:58] VITALS: BP 115/78; PULSE 73; RESP 16; TEMP 36.8; O2SAT 97
== END 2022-03-04 10:50 ==
PROVIDERS: Emergency Provider Emergency Medicine; PCP Physician Assistant
DX: F33.1 Major depressive disorder, recurrent, moderate (principal); R45.851 Suicidal ideations; Z20.822 Contact with and (suspected) exposure to COVID-19; D64.9 Anemia, unspecified; F41.9 Anxiety disorder, unspecified; J43.9 Emphysema, unspecified; K21.9 Gastro-esophageal reflux disease without esophagitis; I10 Essential (primary) hypertension; Z79.899 Other long term (current) drug therapy; Z85.43 Personal history of malignant neoplasm of ovary; Z85.828 Personal history of other malignant neoplasm of skin; Z86.19 Personal history of other infectious and parasitic diseases; F17.210 Nicotine dependence, cigarettes, uncomplicated
CPT/HCPCS: 36415; 80053; 80307; 81003; 84443; 85025; 99285; C9803; U0003; U0005

== ENCOUNTER 2022-03-29 09:37 | Outpatient (CLI) | payer MEDICARE, MEDICAID, SELFPAY ==
--- NOTE | ~2022-03-29 | MR_ITS ---
EXAMINATION: MR lumbar spine wo con DATE: 03/29/2022 10:08 INDICATION: Anesthesia of skin TECHNIQUE: Magnetic resonance imaging (MRI) of the lumbar spine was performed without intravenous con trast. Sequences included sagittal T2-weighted FSE, sagittal T2-weighted FS FSE, sagittal T1-weighted FSE, and axial T2-weighted FSE. COMPARISON: 09/01/2020 FINDINGS: 7 degrees lumbar dextrocurvature. No interval change in 6 mm anterolisthesis L3 on L4, 2 mm retrolist hesis L4 on L5 and 4 mm anterolisthesis L5 on S1. Chronic bilateral L3 pars intra-articular is defect s. Vertebral body heights are normal with Schmorl's nodes along the majority of the endplates in the lumbar and lower thoracic spine. Vertebral body heights are normal. Normal marrow signal. Severe dis c height loss at L3-L4 and L4-L5, moderate disc height loss at L5-S1 and in the lower thoracic spine at T9-T10 through T11-T12. There are annular fissures with disc extrusions with disc material extendi ng craniocaudally to the level of the endplates at T11-T12 and L3-L4 through L5-S1 which will be furt her described below. The conus medullaris terminates at L1-L2. There is normal signal in the caudal s lindsey cord. 3.3 cm T2 hyperintense cyst at the upper pole of the right kidney. Paravertebral soft tis sues are otherwise unremarkable. The following disc levels are specifically discussed: T11-T12: Large Central disc extrusion extending from foraminal zone to foraminal zone and projecting 6 mm posterior to the level of the endplates which flattens the ventral surface of the cord. There is severe bilateral facet osteoarthritis. There is moderate bilateral neural foraminal stenosis. Mild t o moderate central canal stenosis with central canal measuring 9 mm AP in the mid sagittal plane. T12-L1: Disc is minimally bulging. There is mild bilateral facet joint osteoarthritis. There is no ne ural foraminal stenosis. There is no central canal stenosis. L1-L2: The disc does not extend beyond the endplate margin. There is mild bilateral facet joint osteo arthritis. There is minimal bilateral neural foraminal stenosis. There is no central canal stenosis. L2-L3: The disc does not extend beyond the endplate margin. There is moderate bilateral facet joint o steoarthritis. There is mild bilateral neural foraminal stenosis. There is no central canal stenosis. L3-L4: Central disc extrusion extending from foraminal zone to foraminal zone. There is moderate bila teral facet joint osteoarthritis. Chronic bilateral L3 pars intra-articular is defects. There is mode rate right and moderate to severe left neural foraminal stenosis. There is mild central canal stenosi s. L4-L5: Central disc extrusion extending from foraminal zone to foraminal zone. There is very bilatera l facet joint osteoarthritis. There is moderate bilateral neural foraminal stenosis. There is mild ce ntral canal stenosis. L5-S1: Central disc extrusion which extends from foraminal zone to foraminal zone There is severe marques ateral, right greater than left facet joint osteoarthritis. There is moderate to severe bilateral lance ral foraminal stenosis. There is mild central canal stenosis. IMPRESSION: 1. Minimal change in severe lumbar spondylosis. 2. Mild lumbar dextrocurvature. 3. Chronic bilateral L3 pars intra-articularis defects with unchanged 6 mm anterolisthesis L3 on L4. Reviewed, dictated and finalized at location A. IMPRESSION: 1. Minimal change in severe lumbar spondylosis. 2. Mild lumbar dextrocurvature. 3. Chronic bilateral L3 pars intra-articularis defects with unchanged 6 mm ante rolisthesis L3 on L4.
== END 2022-03-29 09:38 | disposition home or self-care (01) ==
PROVIDERS: PCP Physician Assistant; Visit Provider Physician Assistant
DX: R20.0 Anesthesia of skin (principal); M47.815 Spondylosis without myelopathy or radiculopathy, thoracolumbar region; M48.05 Spinal stenosis, thoracolumbar region; M47.817 Spondylosis without myelopathy or radiculopathy, lumbosacral region; M48.07 Spinal stenosis, lumbosacral region
CPT/HCPCS: 72148

== ENCOUNTER 2022-05-04 09:18 | Outpatient (CLI) | payer MEDICARE, MEDICAID, SELFPAY ==
--- NOTE | 2022-05-04 11:30 | NEURO_ITS ---
Impression: # Complains of numbness of lower extremities. History of chemotherapy,in the past.. # Asymmetrical sensory neuropathy,involving lower extremities. # Needle/EMG exam mildly neurogenic but no active denervation potentials. Nerve Conduction Studies Anti Sensory Summary Table Stim Site NR Peak (ms) P-T Amp (?V) Site1 Site2 Delta-P (ms) Dist (cm) Jeremie (m/s) Left Sup Fibular Anti Sensory (Ant Lat Mall) NO RESPONSE 14 cm NR 14 cm Ant Lat Mall 16.0 Right Sup Fibular Anti Sensory (Ant Lat Mall) 14 cm 3.9 29.3 14 cm Ant Lat Mall 3.9 16.0 41 Left Sural Anti Sensory (Lat Mall) NO RESPONSE Calf NR Calf Lat Mall 16.0 Right Sural Anti Sensory (Lat Mall) POOR RESPONSE Calf NR Calf Lat Mall 16.0 Motor Summary Table Stim Site NR Onset (ms) O-P Amp (mV) Site1 Site2 Delta-0 (ms) Dist (cm) Jeremie (m/s) Left Peroneal Motor (Vastus Med) Ankle 5.1 3.1 Popit Ankle 8.3 38.0 46 Popit 13.4 2.2 Right Peroneal Motor (Vastus Med) Ankle 4.5 0.4 Popit Ankle 7.4 35.0 47 Popit 11.9 0.5 Left Tibial Motor (Abd Brice Brev) Ankle 4.8 3.3 Knee Ankle 9.1 40.0 44 Knee 13.9 2.1 Right Tibial Motor (Abd Brice Brev) Ankle 4.5 3.1 Knee Ankle 10.0 40.0 40 Knee 14.5 2.8 F Wave Studies NR F-Lat (ms) L-R F-Lat (ms) Left Peroneal (Mrkrs) (EDB) 55.63 1.47 Right Peroneal (Mrkrs) (EDB) 54.15 1.47 Left Tibial (Mrkrs) (Abd Hallucis) 54.02 1.66 Right Tibial (Mrkrs) (Abd Hallucis) 55.68 1.66 EMG Side Muscle Nerve Root Ins Act Fibs Amp Dur Recrt Comment Right AntTibialis Dp Br Fibular L4-5 Nml Nml Nml Nml Nml Right Gastroc Tibial S1-2 Nml Nml Nml Nml Nml Right Fibularis Long Sup Br Fibular L5-S1 Nml Nml Nml Nml Nml Right Flex Dig Long Tibial L5-S2 Nml Nml Nml Nml Nml Right Ext Dig Brev Dp Br Fibular L5, S1 Nml Nml Incr >12ms Reduced Left AntTibialis Dp Br Fibular L4-5 Nml Nml Nml Nml Nml Left Gastroc Tibial S1-2 Nml Nml Nml Nml Nml Left Fibularis Long Sup Br Fibular L5-S1 Nml Nml Nml Nml Nml Left Flex Dig Long Tibial L5-S2 Nml Nml Nml Nml Nml Left Ext Dig Brev Dp Br Fibular L5, S1 Nml Nml Incr >12ms Reduced MTDD
== END 2022-05-04 09:19 | disposition home or self-care (01) ==
LOC: ANHNEURO 09:21
PROVIDERS: PCP Physician Assistant; Visit Provider Physician Assistant
DX: G62.9 Polyneuropathy, unspecified (principal)
CPT/HCPCS: 95886; 95910

== ENCOUNTER 2022-06-10 09:33 | Outpatient (CLI) | payer MEDICARE, MEDICAID, SELFPAY ==
--- NOTE | ~2022-06-10 | XR_ITS ---
EXAMINATION: XR chest 2V 06/10/2022 09:55 INDICATION: Respiratory crackles PROCEDURE: PA and lateral views of the chest COMPARISON: Comparison to multiple prior studies sequentially, with oldest reviewed study dated 12/13. FINDINGS: The lungs are clear. The cardiomediastinal silhouette is within normal limits. There are no pleural effusions. There is no pneumothorax suspected. IMPRESSION: 1: NO ACUTE CARDIOPULMONARY DISEASE. Reviewed, dictated and finalized at location A.
== END 2022-06-10 09:34 | disposition home or self-care (01) ==
PROVIDERS: PCP Physician Assistant; Visit Provider Physician Assistant
DX: R09.89 Other specified symptoms and signs involving the circulatory and respiratory systems (principal)
CPT/HCPCS: 71046

== ENCOUNTER 2022-07-11 09:33 | Outpatient (CLI) | payer MEDICARE, MEDICAID, SELFPAY ==
--- NOTE | ~2022-07-11 | XR_ITS ---
EXAMINATION: XR shoulder LT min 2V INDICATION: Left shoulder pain TECHNIQUE: Four views of the left shoulder are submitted. COMPARISON: 07/27/2018 FINDINGS: Normal alignment. No fracture. There is moderate osteoarthritis of the acromioclavicular deepti int and mild osteoarthritis of the glenohumeral joint. Soft tissues are unremarkable. A right interna l jugular Port-A-Cath has been removed. There has been interval surgical change in the cervical spine IMPRESSION: 1. Osteoarthritis without acute osseous abnormality. Reviewed, dictated and finalized at location B.
== END 2022-07-11 09:34 | disposition home or self-care (01) ==
PROVIDERS: PCP Physician Assistant; Visit Provider Physician Assistant
DX: M19.012 Primary osteoarthritis, left shoulder (principal)
CPT/HCPCS: 73030

== ENCOUNTER 2023-01-04 16:52 | Emergency (ER) | payer MEDICARE, MEDICAID, SELFPAY ==
--- NOTE | 2023-01-04 17:06 | PC.NURSE ---
Pt. walked up to desk and pulled IV out in front of RN, allowing blood to pour onto the desk and floor. Pt. then stated she is leaving. Pt. then threw IV in trash can and left.
== END 2023-01-05 06:40 | disposition left against medical advice (07) ==
PROVIDERS: PCP Physician Assistant
DX: Z53.21 Procedure and treatment not carried out due to patient leaving prior to being seen by health care provider (principal)
CPT/HCPCS: 99199

== ENCOUNTER 2023-03-07 10:26 | Inpatient (IN) | payer MEDICARE, MEDICAID, SELFPAY ==
[2023-03-07] VITALS (23 sets, daily range): BP systolic 100–154; BP diastolic 60–110; PULSE 97–120; RESP 16–25; TEMP 37.1–37.9; O2SAT 90–97; BMI 19.2
--- NOTE | ~2023-03-07 | XR_ITS ---
XR chest 1V portable DATE: 03/07/2023 12:13 INDICATION: Altered level of consciousness TECHNIQUE: Portable supine AP view on March 07, 2023 at 1208 hours COMPARISON: 06/10/2022 PA and lateral chest FINDINGS: Normal heart size. Aortic arch calcification and mild aortic unfolding. There is mild patchy left lower lobe infiltrate or atelectasis. The lungs otherwise appear clear. No pleural effusion or pulmonary vascular congestion or pneumothorax. Osteopenia. Degenerative spurring of the thoracic spine. IMPRESSION: Patchy left lower lobe infiltrate or atelectasis Aortic atherosclerosis Osteopenia Reviewed, dictated and finalized at location [facility].
--- NOTE | ~2023-03-07 | CT_ITS ---
EXAMINATION: CT brain wo con DATE: 03/07/2023 11:59 INDICATION: Confusion, lethargy, weakness TECHNIQUE: Computed tomography (CT) of the head was performed without intravenous contrast. The mA wa s adjusted according to patient size. Iterative reconstruction technique was employed. Exam dose: 75 6.67 mGy-cm total exam DLP. COMPARISON: January 12, 2018 CT brain FINDINGS: 2 sets of images were obtained, examination is limited due to motion artifact on both sets. There is a chronic left basal ganglia lacunar infarcts, present since January 12, 2018. Since then t here has been a chronic lacunar infarct in the right periventricular area. There is nonspecific diminished attenuation of the cerebral white matter, likely due to chronic small vessel ischemic changes. Bilateral carotid siphon internal carotid artery calcifications. No intracranial mass lesion or hemorrhage or recent cerebrovascular accident is detected. No midline shift or mass effect. No subdural or epidural hematoma. No fracture or bone destruction of the cranial vault. The mastoid air cells and paranasal sinuses are unremarkable. IMPRESSION: Cerebral atherosclerosis and chronic small vessel ischemic changes of the cerebral white matter Chronic left basal ganglia and right periventricular lacunar infarcts No acute intracranial finding Reviewed, dictated and finalized at [facility]. Reviewed, dictated and finalized at location L.
--- NOTE | 2023-03-07 10:41 | ECG_ITS ---
Measurements Intervals [place] Rate: 110 P: 75 PA: 174 QRS: 85 QRSD: 100 T: 82 QT: 275 QTc: 373 Interpretive Statements SINUS TACHYCARDIA POSSIBLE LEFT ATRIAL ENLARGEMENT [-0.1mV P WAVE IN V1/V2] NONSPECIFIC T-WAVE ABNORMALITY ABNORMAL RHYTHM ECG COMPARED TO ECG 02/27/2022 15:17:44 SINUS TACHYCARDIA NOW PRESENT Electronically Signed On 03-07-2023 17:52:31 CDT by Yifan Whitmore M.D.
[2023-03-07 11:04] LABS: Basophils Absolute Auto 0.1 K/mm3 (0.0-0.1); Basophils Percent Auto 0.2 % (0.2-1.2); Hematocrit 38.9 % (37.0-47.0); Hemoglobin 12.9 g/dL (12.0-15.0); Immature Granulocyte Absolute 0.11 K/mm3 (0.00-0.031); Immature Granulocyte Percent A 0.5 % (0-0.5); Lymphocytes Absolute Auto 1.39 K/mm3 (0.9-3.2); Lymphocytes Percent Auto 6.8 % (18.3-44.2); Mean Corpuscular HGB Conc 33.2 g/dl (32-36); Mean Corpuscular Hemoglobin 32.3 pg (26-34); Mean Corpuscular Volume 97.5 fl (80-100); Mean Platelet Volume 9.3 fl (7.4-10.4); Monocytes Absolute Auto 1.3 K/mm3 (0.1-0.6); Monocytes Percent Auto 6.1 % (2.6-8.5); Neutrophils Absolute Auto 17.8 K/mm3 (1.3-6.7); Neutrophils Percent Auto 86.4 % (45.5-73.1); Platelet Count Result 228 k/mm3 (150-375); Red Blood Count 3.99 M/mm3 (4.2-5.4); Red Cell Distribution Width 14.3 % (11.5-14.5); White Blood Count 20.6 K/mm3 (4.5-10.0)
[2023-03-07 11:17] LABS: Prothrombin Time 13.2 Seconds (11.1-14.7)
[2023-03-07 11:18] LABS: Partial Thromboplastin Time 23.5 SECONDS (22.3-36.8)
--- NOTE | 2023-03-07 11:18 | PC.NURSE ---
called poison control. they state to watch for prolong QT, wide QRS, PILER depression, and seizures.
[2023-03-07 11:24] LABS: Appearance Urine Clear (Clear); Bacteria Urine None Seen /hpf; Bilirubin Urine Negative (Negative); Blood Urine Negative (Negative); Color Urine Dark Yellow (Yellow); Glucose Urine UA Negative (Negative); Ketones Urine Trace mg/dL (Negative); Leukocyte Esterase Ur Negative LEU/UL (Negative); Need Manual Microscopic Reviewed; Nitrate Urine Negative (Negative); Non Pathogenic Casts 0-2; Protein Urine 1+ mg/dL (Negative); RBC Urine 0-2 /hpf (0-2); Specific Grav Ur 1.031 (1.001-1.035); Squamous Epithelial Cell Urine None seen /hpf (Few); WBC Urine 0-5 /hpf
[2023-03-07 11:25] LABS: Acetaminophen < 10 ug/mL (10-30); Salicylate < 1.0 mg/dL (2-20)
[2023-03-07 11:28] LABS: Alanine Aminotransferase 20 U/L (6-35); Albumin Level 4.9 g/dL (3.5-5.1); Alkaline Phosphatase 53 U/L (38-126); Anion Gap 8 mmol/L (8-16); Aspartate Amino Transferase 32 U/L (14-36); Bilirubin,Total 0.9 mg/dL (0.2-1.3); Blood Urea Nitrogen 20 mg/dL (7-17); Calcium 9.4 mg/dL (8.4-10.2); Carbon Dioxide 30 mmol/L (22-30); Chloride 100 mmol/L (98-107); Estimated CRCL calculation 61 ml/min; Estimated Glomerular Filt Rate > 60; Glucose 119 mg/dL (65-110); Potassium 4.6 mmol/L (3.4-5.0); Sodium 138 mmol/L (137-145)
--- NOTE | 2023-03-07 11:32 | PC.NURSE ---
called lab and added on urine drug screen.
[2023-03-07 11:43] LABS: Add Urine Microscopic? YES
[2023-03-07 11:54] LABS: Amphetamine Screen Urine Negative (Negative); Barbiturate Screen Urine Negative (Negative); Benzodiazepines Screen Urine Negative (Negative); Cannabinoid Screen Urine Positive (Negative); Cocaine Screen Urine Negative (Negative); Methadone Screen Urine Negative (Negative); Opiate Screen Urine Negative (Negative); Phencyclidine Screen Urine Negative (Negative)
--- NOTE | 2023-03-07 12:27 | ED.AMS ---
HPI - Altered Mental Status General Chief Complaint: Altered Mental Status Stated Complaint: lethargic weak, possible OD Time Seen by Provider: 03/07/23 11:25 History of Present Illness HPI narrative: Pt caregiver provided history along with EMS. Pt caregiver said she was there for routine visit this morning. She states the patient took a long time to get to the door and she heard some noise like maybe she fell trying to get to door. Pt sasy that she was very weak and could not get up from chair and was very slow to respond and less responsive than usual. She called 911. Per EMS in her BR were several open empty pill bottles. Related Data Home Medications Medication Instructions Recorded Confirmed omeprazole 20 mg capsule,delayed 20 mg PO DAILY 06/10/21 03/07/23 release rosuvastatin 5 mg tablet 5 mg PO DAILY 06/10/21 03/07/23 trazodone 50 mg tablet 100 mg PO HS 06/10/21 03/07/23 amitriptyline 25 mg tablet 25 mg PO HS 03/07/23 03/07/23 baclofen 10 mg tablet 10 mg PO TID 03/07/23 03/07/23 gabapentin 300 mg capsule 300 mg PO BID 03/07/23 03/07/23 ibuprofen 800 mg tablet 800 mg PO Q8H PRN Pain 03/07/23 03/07/23 methocarbamol 500 mg tablet 500 mg PO TID PRN muscle spasm 03/07/23 03/07/23 olanzapine 7.5 mg tablet 7.5 mg PO BID 03/07/23 03/07/23 tramadol 50 mg tablet 50 mg PO Q12H 03/07/23 03/07/23 Allergies Allergy/AdvReac Type Severity Reaction Status Date / Time ciprofloxacin Allergy Unknown Rash Verified 04/25/22 14:36 Review of Systems Review of Systems: ROS unobtainable: Yes unobtainable due to medical condition PMFSH Past Medical History Medical History Anemia Anxiety Arthritis Asthma Chronic obstructive pulmonary disease Degenerative disc disease Depression Emphysema of lung Gastroesophageal reflux disease Hepatitis C Treated in 2007. Hypertension Ovarian cancer Peripheral neuropathy due to chemotherapy Skin cancer Tobacco dependence Surgical History Surgical History H/O laminectomy (~04/01/22) History of appendectomy History of hysterectomy History of lumpectomy of left breast History of open reduction and internal fixation (ORIF) procedure Ankle fracture. History of repair of right rotator cuff History of tonsillectomy Family History Family History Mother Family history of malignant neoplasm Family history of heart disease in male family member before age 55 Sibling Family history of malignant neoplasm of brain Father Family history of emphysema Social History Social History Social History: Surrogate decision maker: Sai Martinez, fransico. Code status: Full code. Smoking packs per day: 1 Smoking cigarettes per day: 20.0 Years smoked: 55 Smoking pack-years: 55.00 Smoking status: Unknown if ever smoked Tobacco type: cigarettes Second hand tobacco smoke exposure: No Additional smoking assessment comments: Down to 3 to 5 cigarettes a day. Alcohol intake: current Alcohol use details: Drinks socially and in moderation. Substance use: unknown Substance use type: marijuana and painkillers Other substance usage details: Uses a few times a week. Living arrangements: alone Additional living arrangements comments: The patient lives in a senior apartment in [place]. Additional occupation/education comments: Retired. Spiritual care concerns: No Exam Const: General: healthy appearing and no acute distress Limitations: altered mental status Other: will open eyes to voice and mumble unintelligible words then go back to sleep. Eyes: Pupils: Equal, round and reactive pupils present Resp: Effort & Inspection: normal respiratory effort Auscultation: clear to auscultation bilaterally Cardio: Rate: tachycardic Rhythm: regular rhythm GI: GI Palp: Yes Soft to p
[2023-03-07] MEDS: SODIUM CHLORIDE 0.9% IV 2,000 ML 999 ML IV CONT (13:21)
--- NOTE | 2023-03-07 14:16 | WPDCNINT ---
Assessment and Plan Assessment and plan (1) Altered mental status: Code(s): R41.82 - Altered mental status, unspecified Status: Acute Assessment and Plan: Altered mental status most likely related to possible drug overdose, EMS found empty bottles of tramadol, trazodone, carbamol, amitriptyline -likely suicidal behavior -poison Control was notified, recommended monitoring QT interval -will order EKGs q.4 hours -if QT intervals are prolonged, patient may require bicarb infusion (2) Overdose: Code(s): T50.901A - Poisoning by unspecified drugs, medicaments and biological substances, accidental (unintentional), initial encounter Status: Acute Assessment and Plan: As above (3) Suicidal behavior: Code(s): R45.89 - Other symptoms and signs involving emotional state Status: Acute Assessment and Plan: Suicidal precautions -bedside sitter -once patient is medically stable will have care coordination and crisis management evaluate the patient (4) Chronic obstructive pulmonary disease: Code(s): J44.9 - Chronic obstructive pulmonary disease, unspecified Status: Chronic Assessment and Plan: Will place patient on bronchodilators (5) Tobacco dependence: Code(s): F17.200 - Nicotine dependence, unspecified, uncomplicated Status: Acute Assessment and Plan: Will consult once patient is more awake (6) Depression: Code(s): F32.A - Depression, unspecified Status: Acute Assessment and Plan: History of depression and anxiety on multiple medications at home -hold all psych medications for now (7) Anxiety: Code(s): F41.9 - Anxiety disorder, unspecified Status: Chronic Assessment and Plan: History of depression and anxiety Plan DVT prophylaxis: Lovenox SQ Stress ulcer prophylaxis: Protonix Nutrition: NPO for now Code Status: Full code Critical Care Time Spent: 46 minutes Due to a high probability of clinically significant, life threatening deterioration, the patient required my highest level of preparedness to intervene emergently and I personally spent this critical care time directly and personally managing the patient. This critical care time included obtaining a history; examining the patient; pulse oximetry; ordering and review of studies; arranging urgent treatment with development of a management plan; evaluation of patient's response to treatment; frequent reassessment; and discussions with other providers. It was exclusive of separately billable procedures and treating other patients and teaching time. Please see Assessment and Plan section and the rest of the note for further information on patient assessment and treatment This dictation may have been done utilizing a voice recognition system. Attempts have been made to correct errors. However, there may be uncorrected grammatical, spelling, and recognitions errors present. [employer] Consult Note Consult date: 03/07/23 Reason for consult: Altered mental status, drug overdose, possible suicidal behavior HPI: Myriam Martinez is a 67 year old female past medical history a anxiety, asthma, COPD, degenerative disc disease, depression, emphysema, GERD, hepatitis-C treated in 2007, hypertension, ovarian cancer status post chemotherapy, peripheral neuropathy due to chemotherapy, skin cancer, tobacco dependence presented the ED on 03/07/2023 after being found less responsive by her caregiver when the caregiver arrived at her home for a routine visit. According the ER note the caregiver said that it took a long time for the patient to open the door and that she had some noise like it may be she fell trying to get to the door, also that she was very weak and could not get up from her chair very slow to respond and less responsive than usual so she called 911, EMS found several open empty pill bottles in her bedroom. They found empty bottle of tramadol, trazodone, a
--- NOTE | 2023-03-07 15:15 | ADMGEN ---
This patient, Myriam Martinez, was admitted to Intensive Care Unit-4. Patient/family oriented to hospital policies and general routines including ID bracelet, bed and alarms, visiting hours, pain management, procedures, bathroom and other care routines, personal items, smoking policy, room service/diet, and visiting hours. Information on how to activate the Rapid Response Team has been discussed. Patient/Family are encouraged to report perceived risks to care and to ask questions if they do not understand what they are told or what they should do.
[2023-03-07] MEDS: SODIUM CHLORIDE 0.9% IV 1,000 ML 100 ML IV CONT (15:28)
--- NOTE | 2023-03-07 16:00 | ECG_ITS ---
Measurements Intervals [place] Rate: 116 P: 79 [place]: 168 QRS: 97 QRSD: 102 T: 71 QT: 344 QTc: 479 Interpretive Statements SINUS TACHYCARDIA BORDERLINE RIGHT AXIS DEVIATION [QRS AXIS > 90] NONSPECIFIC ST & T-WAVE ABNORMALITY ABNORMAL RHYTHM ECG COMPARED TO ECG 03/07/2023 10:44:03 NO SIGNIFICANT CHANGES Electronically Signed On 03-07-2023 18:07:38 CDT by Yifan Whitmore M.D.
--- NOTE | 2023-03-07 16:15 | PM.IMHP ---
H&P: HPI History of Present Illness Date/Time: 03/07/23 16:15 Chief Complaint: Lethargic, concerns for overdose. Narrative: This is a 67-year-old female smoker with COPD, dyslipidemia, depression, anxiety, and history of ovarian cancer who presented to the emergency department earlier today via EMS from home for evaluation of lethargy and concerns for possible overdose. She is alert and oriented x2 at the time my evaluation is not able to provide an accurate history. As such majority of the following is obtained via a review of her electronic medical records as well as triage in ED physician note. The patient lives alone and has a tile applicator that comes to visit sometimes. It is my understanding that the tile applicator came today and the patient took quite a bit of time to answer the door and when she finally answered the door she was lethargic and acting strangely. She sat down in a chair and was apparently unable to get herself up. Several empty pill bottles were noted in her bedroom as well including empty bottles of tramadol, trazodone, amitriptyline, and methocarbamol. The patient was unable to say if for how many pills she took though when she got to the ICU she did admit, at least briefly, that she took them in attempts to harm herself. Brain CT did not show any acute findings. Aside from a WBC count of 20.6 her labs were essentially normal. Urine drug screen was positive for cannabinoids. Salicylate and acetaminophen levels were within normal limits. Case was discussed with poison control and they recommend watching the QT interval which has been normal thus far. At the time my evaluation she has no complaints aside from the fact that she wants to get out of bed. Review of Systems Review of Systems: Unable to obtain accurately as she is confused and not a great historian at this time. She did mention that she was feeling nauseated but then she said she was hungry. She denied headache, chest pain, and shortness of breath. [facility] Past Medical History Medical History Anemia Anxiety Arthritis Asthma Chronic obstructive pulmonary disease Degenerative disc disease Depression Emphysema of lung Gastroesophageal reflux disease Hepatitis C Treated in 2007. Hypertension Ovarian cancer Peripheral neuropathy due to chemotherapy Skin cancer Tobacco dependence Surgical History Surgical History H/O laminectomy (~04/01/22) History of appendectomy History of hysterectomy History of lumpectomy of left breast History of open reduction and internal fixation (ORIF) procedure Ankle fracture. History of repair of right rotator cuff History of tonsillectomy Family History Family History Mother Family history of malignant neoplasm Family history of heart disease in male family member before age 55 Sibling Family history of malignant neoplasm of brain Father Family history of emphysema Social History Social History Social History: Surrogate decision maker: Sai Martinez, son. Code status: Full code. Smoking packs per day: 1 Smoking cigarettes per day: 20.0 Years smoked: 55 Smoking pack-years: 55.00 Smoking status: Unknown if ever smoked Tobacco type: cigarettes Second hand tobacco smoke exposure: No Additional smoking assessment comments: Down to 3 to 5 cigarettes a day. Alcohol intake: current Alcohol use details: Drinks socially and in moderation. Substance use: unknown Substance use type: marijuana and painkillers Other substance usage details: Uses a few times a week. Living arrangements: alone Additional living arrangements comments: The patient lives in a senior apartment in [place]. Additional occupation/education comments: Retired. Spiritual care concerns: No Meds Home M
[2023-03-07] MEDS: LEVALBUTEROL NEB 1.25 MG/3 ML 0.63 MG INHALATION (19:52)
[2023-03-07] MEDS: IPRATROPIUM BR 0.02% INH SOLN 0.5 MG/2.5 ML VIAL INHALATION (19:52)
--- NOTE | 2023-03-07 20:00 | ECG_ITS ---
Measurements Intervals [place] Rate: 113 P: 76 [place]: 180 QRS: 87 QRSD: 99 T: 61 QT: 383 QTc: 526 Interpretive Statements SINUS TACHYCARDIA NONSPECIFIC T-WAVE ABNORMALITY ABNORMAL RHYTHM ECG INTERPRETATION BASED ON A DEFAULT AGE OF 40 YEARS COMPARED TO ECG 03/07/2023 15:38:13 NO SIGNIFICANT CHANGES Electronically Signed On 03-08-2023 15:42:33 CDT by Yifan Whitmore M.D.
[2023-03-08] VITALS (21 sets, daily range): BP systolic 122–141; BP diastolic 80–89; PULSE 94–113; RESP 13–27; TEMP 36.7–37.7; O2SAT 91–100
--- NOTE | 2023-03-08 | ECG_ITS ---
Measurements Intervals [place] Rate: 115 P: 75 [place]: 156 QRS: 96 QRSD: 93 T: 78 QT: 425 QTc: 589 Interpretive Statements SINUS TACHYCARDIA BORDERLINE RIGHT AXIS DEVIATION [QRS AXIS > 90] NONSPECIFIC T-WAVE ABNORMALITY ABNORMAL RHYTHM ECG COMPARED TO ECG 03/07/2023 20:13:13 NO SIGNIFICANT CHANGES Electronically Signed On 03-08-2023 15:44:36 CDT by Yifan Whitmore M.D.
--- NOTE | 2023-03-08 00:53 | PC.NURSE ---
Patient extremely disoriented experiencing auditory, visual, and tactile hallucinations. Patient also sticking finger down her throat in an attempt to induce vomiting. When asked why she's doing this, patient states that she doesn't know. Will continue to monitor.
[2023-03-08] MEDS: SODIUM CHLORIDE 0.9% IV 1,000 ML 100 ML IV CONT ×2 (01:03→17:48)
[2023-03-08] MEDS: LEVALBUTEROL NEB 1.25 MG/3 ML 0.63 MG INHALATION ×4 (02:33→19:48)
[2023-03-08] MEDS: IPRATROPIUM BR 0.02% INH SOLN 0.5 MG/2.5 ML VIAL INHALATION ×4 (02:33→19:48)
--- NOTE | 2023-03-08 04:00 | ECG_ITS ---
Measurements Intervals [place] Rate: 107 P: 62 [place]: 148 QRS: 86 QRSD: 94 T: 54 QT: 269 QTc: 359 Interpretive Statements SINUS TACHYCARDIA NONSPECIFIC T-WAVE ABNORMALITY ABNORMAL RHYTHM ECG COMPARED TO ECG 03/08/2023 00:44:27 NO SIGNIFICANT CHANGES Electronically Signed On 03-08-2023 15:52:18 CDT by Yifan Whitmore M.D.
[2023-03-08 06:13] LABS: Hematocrit 31.6 % (37.0-47.0); Hemoglobin 10.4 g/dL (12.0-15.0); Mean Corpuscular HGB Conc 32.9 g/dl (32-36); Mean Corpuscular Hemoglobin 31.8 pg (26-34); Mean Corpuscular Volume 96.6 fl (80-100); Mean Platelet Volume 9.3 fl (7.4-10.4); Platelet Count Result 192 k/mm3 (150-375); Red Blood Count 3.27 M/mm3 (4.2-5.4); Red Cell Distribution Width 13.8 % (11.5-14.5); White Blood Count 15.3 K/mm3 (4.5-10.0)
[2023-03-08 06:23] LABS: Ammonia < 9 umol/L (9-30)
[2023-03-08 06:25] LABS: Alanine Aminotransferase 16 U/L (6-35); Albumin Level 3.7 g/dL (3.5-5.1); Alkaline Phosphatase 53 U/L (38-126); Anion Gap 6 mmol/L (8-16); Aspartate Amino Transferase 24 U/L (14-36); Bilirubin,Total 0.6 mg/dL (0.2-1.3); Blood Urea Nitrogen 9 mg/dL (7-17); Calcium 8.1 mg/dL (8.4-10.2); Carbon Dioxide 23 mmol/L (22-30); Chloride 108 mmol/L (98-107); Estimated CRCL calculation 79 ml/min; Estimated Glomerular Filt Rate > 60; Glucose 84 mg/dL (65-110); Magnesium 1.7 mg/dL (1.6-2.3); Potassium 3.4 mmol/L (3.4-5.0); Sodium 137 mmol/L (137-145)
--- NOTE | 2023-03-08 08:25 | PM.IMPN ---
Progress Note: A&P Assessment and Plan (1) Altered mental status: Code(s): R41.82 - Altered mental status, unspecified Status: Acute Assessment and Plan: Resolved, likely secondary to overdose of medications at home, multiple empty pill bottles found near patient (2) Overdose of undetermined intent: Code(s): T50.904A - Poisoning by unspecified drugs, medicaments and biological substances, undetermined, initial encounter Status: Acute Assessment and Plan: QT being monitored, medically cleared for crisis evaluation today 03/08 (3) Depression with anxiety: Code(s): F41.8 - Other specified anxiety disorders Status: Acute Assessment and Plan: All psychiatric medications are currently on hold given overdose. (4) Chronic obstructive pulmonary disease: Code(s): J44.9 - Chronic obstructive pulmonary disease, unspecified Status: Chronic Assessment and Plan: No evidence of acute exacerbation. (5) Tobacco dependence: Code(s): F17.200 - Nicotine dependence, unspecified, uncomplicated Status: Acute Assessment and Plan: Smoking cessation is encouraged. Declines the need for nicotine patch. (6) Leukocytosis: Code(s): D72.829 - Elevated white blood cell count, unspecified Status: Acute Assessment and Plan: Likely reactive, resolving, monitor Plan DVT prophylaxis with SCDs GI prophylaxis not indicated Code status full code Subjective Date/time seen: 03/08/23 08:25 Interval history: 67-year-old female with history of COPD, depression, ovarian cancer is presenting with lethargy after overdose of her home medications, uncertain intent. No overnight events noted. No chest pain or shortness of breath. No nausea, vomiting or diarrhea. No fevers or chills. Patient is irritable that she is still here, eager to go home. She is currently stating that she did not overdose on purpose but that we will never know because we cannot read her mind. Review of Systems Review of Systems: 12 point review of systems was assessed and was negative except as noted in the HPI Exam Narrative: General: No acute distress, alert and oriented per baseline HEENT: Atraumatic, normocephalic, mucous membranes moist CV: Regular rate and rhythm, S1, S2 Lungs: Clear to auscultation bilaterally, no rales or crackles noted, no wheezes, good air entry Abdomen: Soft, nontender, nondistended Extremities: Normal to inspection Skin: No rashes noted, no lesions or wounds seen Psych: Irritable, dysthymic, labile mood Objective Data Vital Signs Vital Signs: Vital Signs - 24 hr 03/07/23 10:27 03/07/23 11:35 03/07/23 11:26 Temperature Pulse Rate 112 H 104 H 97 Respiratory Rate 22 H 18 Blood Pressure 118/82 154/110 H Pulse Oximetry 90 92 Oxygen Delivery Room Air Oxygen Flow Rate Fraction of Inspired Oxygen 03/07/23 11:30 03/07/23 11:37 03/07/23 11:45 Temperature Pulse Rate 98 104 H 103 H Respiratory Rate 17 16 Blood Pressure 154/110 H Pulse Oximetry Oxygen Delivery Oxygen Flow Rate Fraction of Inspired Oxygen 03/07/23 12:15 03/07/23 12:30 03/07/23 12:45 Temperature Pulse Rate 111 H 105 H 108 H Respiratory Rate 21 H 18 18 Blood Pressure Pulse Oximetry Oxygen Delivery Oxygen Flow Rate Fraction of Inspired Oxygen 03/07/23 13:00 03/07/23 13:15 03/07/23 13:26 Temperature Pulse Rate 106 H 109 H 110 H Respiratory Rate 16 24 H 20 Blood Pressure 100/60 Pulse Oximetry 93 Oxygen Delivery Oxygen Flow Rate Fraction of Inspired Oxygen 03/07/23 14:34 03/07/23 15:30 03/07/23 15:31 Temperature 98.7 F Pulse Rate 118 H 109 H Respiratory Rate 18 24 H Blood Pressure 103/81 120/80 Pulse Oximetry 93 93 Oxygen Delivery Room Air Oxygen Flow Rate Fraction of Inspired Oxygen 03/07/23 18:00 03/07/23 16:0
[2023-03-08] MEDS: POTASSIUM CHLORIDE INJ 40 MEQ in SODIUM CHLORIDE 0.9% IV 500 ML 130 MEQ IVPB (08:38)
[2023-03-08] MEDS: PANTOPRAZOLE SODIUM IV 40 MG VIAL IV PUSH (08:38)
[2023-03-08] MEDS: ENOXAPARIN 40 MG/0.4 ML SYRINGE SUB-Q (08:39)
--- NOTE | 2023-03-08 12:14 | WPDINTPN ---
Progress Note: A&P Assessment and Plan (1) Altered mental status: Code(s): R41.82 - Altered mental status, unspecified Status: Acute Assessment and Plan: Altered mental status most likely related to possible drug overdose, EMS found empty bottles of tramadol, trazodone, carbamol, amitriptyline -likely suicidal behavior -poison Control was notified, recommended monitoring QT interval -last EKG with normal QTC per interval -mental status much improved this morning -patient is medically stable, will have care coordination and crisis management evaluate the patient (2) Overdose: Code(s): T50.901A - Poisoning by unspecified drugs, medicaments and biological substances, accidental (unintentional), initial encounter Status: Acute Assessment and Plan: As above (3) Suicidal behavior: Code(s): R45.89 - Other symptoms and signs involving emotional state Status: Acute Assessment and Plan: Suicidal precautions -bedside sitter -patient is medically stable, will have care coordination crisis management evaluate the patient (4) Chronic obstructive pulmonary disease: Code(s): J44.9 - Chronic obstructive pulmonary disease, unspecified Status: Chronic Assessment and Plan: Continue bronchodilators (5) Tobacco dependence: Code(s): F17.200 - Nicotine dependence, unspecified, uncomplicated Status: Acute Assessment and Plan: Counseled patient on tobacco cessation (6) Depression: Code(s): F32.A - Depression, unspecified Status: Acute Assessment and Plan: History of depression and anxiety on multiple medications at home -hold all psych medications for now (7) Anxiety: Code(s): F41.9 - Anxiety disorder, unspecified Status: Chronic Assessment and Plan: History of depression and anxiety Plan DVT prophylaxis: Lovenox SQ Stress ulcer prophylaxis: Protonix Nutrition: Heart healthy diet Code Status: Full code Critical Care Time Spent: 32 minutes Discussed with hospitalist who agrees the patient can be downgraded to medical status Due to a high probability of clinically significant, life threatening deterioration, the patient required my highest level of preparedness to intervene emergently and I personally spent this critical care time directly and personally managing the patient. This critical care time included obtaining a history; examining the patient; pulse oximetry; ordering and review of studies; arranging urgent treatment with development of a management plan; evaluation of patient's response to treatment; frequent reassessment; and discussions with other providers. It was exclusive of separately billable procedures and treating other patients and teaching time. Please see Assessment and Plan section and the rest of the note for further information on patient assessment and treatment This dictation may have been done utilizing a voice recognition system. Attempts have been made to correct errors. However, there may be uncorrected grammatical, spelling, and recognitions errors present. Subjective Date/time seen: 03/08/23 12:14 Interval history: Reason for consult: Drug overdose, suicidal behavior, altered mental status 03/08/2023: Patient seen and examined the ICU, is more awake, alert, oriented. States he only took 2 tablets of acidosis and 1 pill of amitriptyline on the day of admission, denies any suicidal behavior. Patient is hemodynamically stable, adequate urine output, last EKG with normal QTC. Patient states she is thirsty and hungry. Denies any shortness of breath, chest pain, abdominal pain, nausea, vomiting. Review of Systems Review of Systems: All systems reviewed & are unremarkable except as noted in HPI and below Exam Narrative: General: Patient is awake, alert, in no distress HEENT:? Sclera is clear, dry oral mucosa Neck:? Supple Respiratory:? Clear to auscultation bilaterally,
--- NOTE | 2023-03-08 20:42 | PC.NURSE ---
Poison Control updated with recent set of vitals and patient condition at 20:42. Notified of patient being transferred to room 333.
--- NOTE | 2023-03-08 21:25 | PC.NURSE ---
Patient transferred to room 320. Report given to MARCELA Palencia. All belongings sent with patient. Patient loss prevention and safety manager accompanied patient to new location.
[2023-03-09] VITALS: PULSE 104
[2023-03-09] MEDS: IPRATROPIUM BR 0.02% INH SOLN 0.5 MG/2.5 ML VIAL INHALATION ×2 (01:53→09:39)
[2023-03-09] MEDS: LEVALBUTEROL NEB 1.25 MG/3 ML 0.63 MG INHALATION ×2 (01:53→09:40)
[2023-03-09 01:57] VITALS: PULSE 100; RESP 22
[2023-03-09 04:00] VITALS: BP 153/88; PULSE 100; PULSE 94; RESP 20; TEMP 36.3; O2SAT 95
[2023-03-09 08:00] VITALS: BP 142/88; PULSE 100; PULSE 91; RESP 18; TEMP 36.6; O2SAT 99
[2023-03-09] MEDS: PANTOPRAZOLE 40 MG TABLET PO (08:39)
[2023-03-09] MEDS: ENOXAPARIN 40 MG/0.4 ML SYRINGE SUB-Q (08:39)
--- NOTE | 2023-03-09 08:43 | PM.IMPN ---
Progress Note: A&P Assessment and Plan (1) Altered mental status: Code(s): R41.82 - Altered mental status, unspecified Status: Acute Assessment and Plan: The patient was lethargic and slow to respond when her clinical social work aide came in this morning. Empty pill bottles including methocarbamol, trazodone, amitriptyline, and tramadol were apparently found at the scene. Presumably she overdosed on some if not all of these medications which is causing her altered mental status. Brain CT was unremarkable. No obvious source to suggest underlying infection though her WBC count is 20.6. No meningeal signs were noted on exam. Urine drug screen was positive for cannabinoids. (2) Overdose of undetermined intent: Code(s): T50.904A - Poisoning by unspecified drugs, medicaments and biological substances, undetermined, initial encounter Status: Acute Assessment and Plan: As above empty pill bottles were found for multiple medications. The patient is being hydrated and monitored closely on telemetry. QT will be followed given concerns for possible amitriptyline overdose. Sitter is in the room as we cannot rule out an intentional overdose. She will need crisis evaluation once medically cleared. (3) Depression with anxiety: Code(s): F41.8 - Other specified anxiety disorders Status: Acute Assessment and Plan: All psychiatric medications are currently on hold given overdose. (4) Chronic obstructive pulmonary disease: Code(s): J44.9 - Chronic obstructive pulmonary disease, unspecified Status: Chronic Assessment and Plan: No evidence of acute exacerbation. (5) Tobacco dependence: Code(s): F17.200 - Nicotine dependence, unspecified, uncomplicated Status: Acute Assessment and Plan: Smoking cessation is encouraged. Declines the need for nicotine patch. (6) Leukocytosis: Code(s): D72.829 - Elevated white blood cell count, unspecified Status: Acute Assessment and Plan: No obvious history or findings to suggest active infection at this time. Possible stress response. Blood cultures ordered as she has a history of bacteremia. No indication for antibiotics at this time. Subjective Date/time seen: 03/09/23 08:43 Interval history: 67-year-old female with history of COPD, depression, ovarian cancer is presenting with lethargy after overdose of her home medications, uncertain intent. No overnight events noted. No chest pain or shortness of breath. No nausea, vomiting or diarrhea. No fevers or chills. Patient is irritable that she is still here, eager to go home. She is currently stating that she did not overdose on purpose but that we will never know because we cannot read her mind. Review of Systems Review of Systems: 12 point review of systems was assessed and was negative except as noted in the HPI Exam Narrative: General: No acute distress, alert and oriented per baseline HEENT: Atraumatic, normocephalic, mucous membranes moist CV: Regular rate and rhythm, S1, S2 Lungs: Clear to auscultation bilaterally, no rales or crackles noted, no wheezes, good air entry Abdomen: Soft, nontender, nondistended Extremities: Normal to inspection Skin: No rashes noted, no lesions or wounds seen Psych: Irritable, dysthymic, labile mood Objective Data Vital Signs Vital Signs: Vital Signs - 24 hr 03/08/23 09:07 03/08/23 09:15 03/08/23 09:18 Temperature Pulse Rate 94 94 99 Respiratory Rate 23 H 18 27 H Blood Pressure Pulse Oximetry 95 Oxygen Delivery Room Air Fraction of Inspired Oxygen 03/08/23 10:00 03/08/23 10:00 03/08/23 12:00 Temperature 99.9 F H Pulse Rate 111 H 113 H 102 H Respiratory Rate 20 Blood Pressure 137/82 Pulse Oximetry 99 Oxygen Delivery Fraction of Inspired Oxygen 03/08/23 12:00 03/08/23 13:55 03/08/23 14:08 Temperature 98.3 F Pulse Rate 110 H 10
[2023-03-09 09:40] VITALS: PULSE 96; RESP 20; O2SAT 92
[2023-03-09 09:51] VITALS: PULSE 101; RESP 20
--- NOTE | 2023-03-09 11:07 | PC.NURSE ---
Talked to poison control at [phone] to discuss patient's case. Per Jeri MEDRANO at poison control center, patient's case is closed and will not be followed upon discharge. Patient's case number was [id number].
--- NOTE | 2023-03-22 07:32 | PM.DS ---
DS: Admitting Diagnosis Discharge Date 03/09/23 Admitting Diagnosis Lethargy DS: Discharge Diagnosis Discharge Diagnosis (1) Altered mental status: Code(s): R41.82 - Altered mental status, unspecified Status: Acute Assessment and Plan: The patient was lethargic and slow to respond when her daytime babysitter came in this morning. Empty pill bottles including methocarbamol, trazodone, amitriptyline, and tramadol were apparently found at the scene. Presumably she overdosed on some if not all of these medications which is causing her altered mental status. Brain CT was unremarkable. No obvious source to suggest underlying infection though her WBC count is 20.6. No meningeal signs were noted on exam. Urine drug screen was positive for cannabinoids. (2) Overdose of undetermined intent: Code(s): T50.904A - Poisoning by unspecified drugs, medicaments and biological substances, undetermined, initial encounter Status: Acute Assessment and Plan: As above empty pill bottles were found for multiple medications. The patient is being hydrated and monitored closely on telemetry. QT will be followed given concerns for possible amitriptyline overdose. Sitter is in the room as we cannot rule out an intentional overdose. She will need crisis evaluation once medically cleared. (3) Depression with anxiety: Code(s): F41.8 - Other specified anxiety disorders Status: Acute Assessment and Plan: All psychiatric medications are currently on hold given overdose. (4) Chronic obstructive pulmonary disease: Code(s): J44.9 - Chronic obstructive pulmonary disease, unspecified Status: Chronic Assessment and Plan: No evidence of acute exacerbation. (5) Tobacco dependence: Code(s): F17.200 - Nicotine dependence, unspecified, uncomplicated Status: Acute Assessment and Plan: Smoking cessation is encouraged. Declines the need for nicotine patch. (6) Leukocytosis: Code(s): D72.829 - Elevated white blood cell count, unspecified Status: Acute Assessment and Plan: No obvious history or findings to suggest active infection at this time. Possible stress response. Blood cultures ordered as she has a history of bacteremia. No indication for antibiotics at this time. DS: Summary Hospital Course Hospital Course: 67-year-old female with past medical history of COPD, depression anxiety is presenting with lethargy after she overdosed on medications tramadol, trazodone, amitriptyline, methocarbamol cannabinoids. Poison control was called in the recommended watching the QT interval. She was admitted to the ICU and will symptoms resolved. QT remained stable. Labs and vital signs were stable. Crisis was consulted and cleared patient for safe discharge with outpatient follow-up. See above and med rec for details. Time Spent with Patient Time attestation: Total time spent providing and/or coordinating discharge services: Exam Narrative: General: No acute distress, alert and oriented per baseline HEENT: Atraumatic, normocephalic, mucous membranes moist CV: Regular rate and rhythm, S1, S2 Lungs: Clear to auscultation bilaterally, no rales or crackles noted, no wheezes, good air entry Abdomen: Soft, nontender, nondistended Extremities: Normal to inspection Skin: No rashes noted, no lesions or wounds seen Psych: Irritable, dysthymic, labile mood Discharge Plan Discharge Attending physician on discharge: Nicolle Lau Consulting providers: Liseth Vines; Mary Rashid; Estevan Magana; Yifan Whitmore Discharging Clinician: Nicolle Lau Patient Disposition: Home, Self-Care Activity: as tolerated Diet: as tolerated Patient Instructions: Suicide Prevention (DC) Stand Alone Forms: General Discharge Information Follow-up/Referrals: Ki,MONO Craig [Primary Care Provider] - Discharge Medication
== END 2023-03-09 13:45 | disposition home or self-care (01) | DRG 918 ==
LOC: ANHED 13:46 → ANHICU 16:13 → ANH3MEDSUR 03-08 21:26
PROVIDERS: Physician Assistant; Admitting Provider Family Medicine; Emergency Provider Emergency Medicine; PCP Physician Assistant; Visit Provider Student in an Organized Health Care Education/Training Program
DX: T50.904A Poisoning by unspecified drugs, medicaments and biological substances, undetermined, initial encounter (principal); R41.82 Altered mental status, unspecified; J44.9 Chronic obstructive pulmonary disease, unspecified; D72.829 Elevated white blood cell count, unspecified; K21.9 Gastro-esophageal reflux disease without esophagitis; I10 Essential (primary) hypertension; M19.90 Unspecified osteoarthritis, unspecified site; T45.1X5S Adverse effect of antineoplastic and immunosuppressive drugs, sequela; G62.0 Drug-induced polyneuropathy; F17.210 Nicotine dependence, cigarettes, uncomplicated; F41.9 Anxiety disorder, unspecified; F32.A Depression, unspecified; Z85.43 Personal history of malignant neoplasm of ovary; Z86.19 Personal history of other infectious and parasitic diseases
CPT/HCPCS: 36415; 70450; 71045; 80053; 80307; 81001; 82140; 82607; 83735; 84443; 85025; 85027; 85610; 85730; 87040; 87086; 93005; 94640; 99285; A9270; C9113; J1650; J3480; J7030; J7040; J7050

== ENCOUNTER 2023-04-06 11:50 | Inpatient (IN) | payer MEDICARE, MEDICAID, SELFPAY ==
[2023-04-06] VITALS (70 sets, daily range): BP systolic 66–161; BP diastolic 42–120; PULSE 72–123; RESP 10–26; TEMP 36.1–37.3; O2SAT 90–100; BMI 20.8
--- NOTE | ~2023-04-06 | XR_ITS ---
EXAMINATION: XR chest 1V portable INDICATION: Respiratory failure TECHNIQUE: Portable AP chest at 0220 hours COMPARISON: 04/08/2023 FINDINGS: The endotracheal tube ends approximately 5.1 cm above the herbie. The nasogastric tube is f ollowed as far as the stomach. Its tip is beyond the inferior margin of the radiograph. Bibasilar air space opacities persist but have improved. No pleural effusion or pneumothorax. The cardiomediastinal silhouette is stable. IMPRESSION: 1. Bibasilar airspace opacities with slight improvement, consistent with atelectasis versus pneumonia . Reviewed, dictated and finalized at location A. IMPRESSION: 1. Bibasilar airspace opacities with slight improvement, consistent with atelec tasis versus pneumonia.
--- NOTE | ~2023-04-06 | XR_ITS ---
EXAMINATION: XR chest 1V portable DATE: 04/06/2023 12:49 INDICATION: Transient alteration of awareness. TECHNIQUE: A single frontal view of the chest was obtained. COMPARISON: Chest single view 03/07/2023, chest CT 10/20/2023 FINDINGS: There are lucencies in the lungs, consistent with emphysema. There is a diffuse interstitia l pattern in the lungs, consistent mild pulmonary edema. There is mild atelectasis at left lung base. No pleural effusion or pneumothorax. The heart size is normal. IMPRESSION: 1. Mild pulmonary edema. 2. Emphysema. 3. Mild atelectasis at left lung base. Reviewed, dictated and finalized at location A.
--- NOTE | ~2023-04-06 | XR_ITS ---
EXAMINATION: XR barium swallow modified DATE: 04/10/2023 11:36 INDICATION: Dysphagia. TECHNIQUE: The patient was given barium-containing material of multiple consistencies to swallow by t he speech pathologist while I performed fluoroscopy. Fluoroscopy exposure time was 0.5 minutes. The n umber of fluoroscopy images saved to the PACS was 1. Dose-area product was 0.408 Gy-cm^2. FINDINGS: The oral stage, pharyngeal stage, and cervical/esophageal phase of the swallow are normal. IMPRESSION: 1. Normal modified barium swallow. 2. Please refer to the speech therapy report for recommendations. Reviewed, dictated and finalized at location A.
--- NOTE | ~2023-04-06 | XR_ITS ---
EXAMINATION: XR abdomen NG/feed tube insert DATE: 04/06/2023 17:40 INDICATION: Intubation and orogastric tube insertion TECHNIQUE: 1. AP view of the chest was obtained. 2. AP view of the abdomen was obtained. COMPARISON: Chest radiograph dated 04/06/2023 at 3:10 PM FINDINGS: Chest: Endotracheal tube tip 5.1 cm above the herbie. Mild elevation of the left hemidiaphragm. Persistent a irspace opacities in the left mid to lower and infrahilar right lower lung zones. Small left pleural effusion. No pneumothorax. Heart size is normal. Moderate thoracic spondylosis. Plain screw fixations along the posterior elements at C5-C7. Abdomen: Nasogastric tube tip in proximal side port in the body of the stomach. Moderate amount of colonic gas and stool is seen in the abdomen. No dilated gas-filled loops of small bowel to suggest obstruction. Mild lumbar dextrocurvature with moderate to severe lower lumbar spondylosis. IMPRESSION: 1. Endotracheal tube 5.1 cm above the herbie. Consider advancement by 3 cm. 2. Nasogastric tube in stomach. 3. Persistent opacities in the left mid to lower and right lower lung zones which could represent ate lectasis, mild pulmonary edema or pneumonia. 4. Small left pleural effusion. Reviewed, dictated and finalized at location A. IMPRESSION: 1. Endotracheal tube 5.1 cm above the herbie. Consider advancement by 3 cm. 2. Nasogastric tube in stomach. 3. Persistent opacities in the left mid to lower and right lower lung zones whi ch could represent atelectasis, mild pulmonary edema or pneumonia. 4. Small left pleural effusion.
--- NOTE | ~2023-04-06 | XR_ITS ---
EXAMINATION: XR chest 1V portable INDICATION: Respiratory failure TECHNIQUE: Portable AP chest at 0537 hours COMPARISON: 04/07/2023 FINDINGS: The endotracheal tube ends approximately 1.5 cm above the herbie. The nasogastric tube is f ollowed as far as the stomach. Its tip is beyond the inferior margin of the radiograph. There are min imal airspace opacities of the lung bases. No pleural effusion or pneumothorax. The cardiomediastinal silhouette is normal. IMPRESSION: 1. Minimal bibasilar airspace opacity, consistent with atelectasis versus pneumonia. Reviewed, dictated and finalized at location A. IMPRESSION: 1. Minimal bibasilar airspace opacity, consistent with atelectasis versus pneum onia.
--- NOTE | ~2023-04-06 | XR_ITS ---
EXAMINATION: XR chest 1V portable DATE: 04/06/2023 15:13 INDICATION: Shortness of breath. TECHNIQUE: A single frontal view of the chest was obtained. COMPARISON: Chest single view at 12:45 PM FINDINGS: There are lucencies in the lungs, consistent with emphysema. There is mild atelectasis at l eft lung base. No pleural effusion or pneumothorax. The heart size is normal. IMPRESSION: 1. Mild atelectasis at left lung base. 2. Emphysema. Reviewed, dictated and finalized at location A.
--- NOTE | ~2023-04-06 | XR_ITS ---
Portable chest x-ray Comparison: 04/06/2023 Clinical History: Tube placement Findings: Endotracheal tube and NG tube are in satisfactory positions. There is minimal bibasilar in terstitial prominence. Probable COPD pattern of the lungs. Cardiomediastinal silhouette is stable. B ones and soft tissues are unremarkable. Impression: Probable COPD with mild bibasilar interstitial prominence. Significant interval improvement in interstitial pulmonary edema since prior exam. Support tubes, as above. Reviewed, dictated and finalized at location M. Impression: Probable COPD with mild bibasilar interstitial prominence. Significant interval improvement in interstitial pulmonary edema since prior ex am. Support tubes, as above.
--- NOTE | ~2023-04-06 | US_ITS ---
. EXAMINATION: US renal BI DATE: 04/06/2023 16:30 INDICATION: Acute kidney injury. TECHNIQUE: Multiple ultrasound grayscale images of the kidneys were obtained. COMPARISON: CT abdomen and pelvis 10/19/2021 FINDINGS: The right kidney measures 9.4 x 5.4 x 5.9 cm. The left kidney measures 9.9 x 5.9 x 4.4 cm. The kidney s demonstrate normal parenchymal echogenicity. There is a 3.7 cm cyst in right kidney. There is no hy dronephrosis. The bladder is decompressed by a Edmonds catheter. IMPRESSION: 1. Normal kidney sizes. No hydronephrosis. Reviewed, dictated and finalized at location A.
--- NOTE | ~2023-04-06 | XR_ITS ---
EXAMINATION: XR chest ET placement DATE: 04/06/2023 17:40 INDICATION: Intubation and orogastric tube insertion TECHNIQUE: 1. AP view of the chest was obtained. 2. AP view of the abdomen was obtained. COMPARISON: Chest radiograph dated 04/06/2023 at 3:10 PM FINDINGS: Chest: Endotracheal tube tip 5.1 cm above the herbie. Mild elevation of the left hemidiaphragm. Persistent a irspace opacities in the left mid to lower and infrahilar right lower lung zones. Small left pleural effusion. No pneumothorax. Heart size is normal. Moderate thoracic spondylosis. Plain screw fixations along the posterior elements at C5-C7. Abdomen: Nasogastric tube tip in proximal side port in the body of the stomach. Moderate amount of colonic gas and stool is seen in the abdomen. No dilated gas-filled loops of small bowel to suggest obstruction. Mild lumbar dextrocurvature with moderate to severe lower lumbar spondylosis. IMPRESSION: 1. Endotracheal tube 5.1 cm above the herbie. Consider advancement by 3 cm. 2. Nasogastric tube in stomach. 3. Persistent opacities in the left mid to lower and right lower lung zones which could represent ate lectasis, mild pulmonary edema or pneumonia. 4. Small left pleural effusion. Reviewed, dictated and finalized at location A. IMPRESSION: 1. Endotracheal tube 5.1 cm above the herbie. Consider advancement by 3 cm. 2. Nasogastric tube in stomach. 3. Persistent opacities in the left mid to lower and right lower lung zones whi ch could represent atelectasis, mild pulmonary edema or pneumonia. 4. Small left pleural effusion.
--- NOTE | ~2023-04-06 | CT_ITS ---
EXAMINATION: CT brain wo con DATE: 04/06/2023 14:48 INDICATION: Altered mental status. Unresponsiveness. TECHNIQUE: Computed tomography (CT) of the head was performed without intravenous contrast. Sagittal and coronal reconstructions were performed. The mA was adjusted according to patient size. Iterative reconstruction technique was employed. The dose-length product was 1362.00 mGy-cm. COMPARISON: head CT dated 03/07/2023 FINDINGS: Small old lacunar infarcts at the right caudate nucleus and at the left subinsular white matter. No a cute intracranial hemorrhage, acute infarction or abnormal extra axial fluid collection. There is mil d scattered white matter hypoattenuation consistent with chronic small vessel ischemic disease. Vent ricles are normal and symmetric. No mass/mass effect. Mild mucosal thickening in the paranasal sinuse s. Very small right mastoid effusion. The orbits are normal. Intracranial calcified cerebral atherosc lerosis is noted. IMPRESSION: 1. No acute intracranial process. 2. A couple small old lacunar infarcts at the right caudate nucleus and left subinsular white matter. Reviewed, dictated and finalized at location A. IMPRESSION: 1. No acute intracranial process. 2. A couple small old lacunar infarcts at the right caudate nucleus and left gates binsular white matter.
--- NOTE | 2023-04-06 11:57 | ECG_ITS ---
Measurements Intervals [place] Rate: 84 P: 72 [place]: 150 QRS: 88 QRSD: 81 T: 61 QT: 369 QTc: 437 Interpretive Statements SINUS RHYTHM POSSIBLE LEFT ATRIAL ENLARGEMENT BORDERLINE ECG COMPARED TO ECG 03/08/2023 05:45:29 SINUS RHYTHM NOW PRESENT Electronically Signed On 04-06-2023 12:05:22 CDT by Abraham Whitaker D.O.
[2023-04-06 12:03] LABS: Glucose Point of Care 98 mg/dl (65-105)
[2023-04-06 12:17] LABS: Alveolar/Arterial O2 Gradient 49.5 mmHg; Base Excess ABG -2.1 mEq/l (+/-2.0); Fractional Inspired Oxygen 21 %; HCO3 ABG 23.5 mEq/l (22.0-26.0); Oxygen Content ABG 13.9 %vol (16.0-22.0); PCO2 ABG 43.5 mmHg (35.0-45.0); PO2 FiO2 Ratio Arterial Blood 2.29 %; Total Hemoglobin 12.2 g/dL (12.0-18.0)
[2023-04-06 12:19] LABS: Device ROOM AIR; Modified Allen's Test Unable to perform; Oxygen Saturation ABG 81.8 % (95.0-100.0); Oxyhemoglobin 81.3 % THb (90.0-100.0); PO2 ABG 48.1 mmHg (80.0-100.0); Site Drawn RIGHT RADIAL
[2023-04-06] MEDS: SODIUM CHLORIDE 0.9% IV 1,000 ML 999 ML IV CONT ×2 (12:30→12:48)
[2023-04-06 12:54] LABS: Basophils Percent Auto 0.1 % (0.2-1.2); Eosinophils Percent Auto 0.4 % (0-4.4); Hematocrit 35.6 % (37.0-47.0); Hemoglobin 11.3 g/dL (12.0-15.0); Immature Granulocyte Absolute 0.03 K/mm3 (0.00-0.031); Immature Granulocyte Percent A 0.3 % (0-0.5); Lymphocytes Absolute Auto 1.62 K/mm3 (0.9-3.2); Lymphocytes Percent Auto 17.6 % (18.3-44.2); Mean Corpuscular HGB Conc 31.7 g/dl (32-36); Mean Corpuscular Hemoglobin 31.2 pg (26-34); Mean Corpuscular Volume 98.3 fl (80-100); Mean Platelet Volume 9.7 fl (7.4-10.4); Monocytes Absolute Auto 0.7 K/mm3 (0.1-0.6); Monocytes Percent Auto 7.4 % (2.6-8.5); Neutrophils Absolute Auto 6.8 K/mm3 (1.3-6.7); Neutrophils Percent Auto 74.2 % (45.5-73.1); Platelet Count Result 204 k/mm3 (150-375); Red Blood Count 3.62 M/mm3 (4.2-5.4); White Blood Count 9.2 K/mm3 (4.5-10.0)
--- NOTE | 2023-04-06 12:58 | PC.NURSE ---
PT HAS TRAZODONE 150MG 30 TABS PRESCRIBED 04/04/23. THERE ARE ONLY 6 LEFT IN BOTTLE. UNCLEAR WHERE REMAINING TABLETS ARE. PT ALSO WITH AMITRIPTYLINE 25MG 30 TABS PRESCRIBED 04/03/23 AND THE BOTTLE IS EMPTY.
[2023-04-06 13:03] LABS: INR 0.9; Partial Thromboplastin Time 20.2 SECONDS (22.3-36.8); Prothrombin Time 12.7 Seconds (11.1-14.7)
[2023-04-06 13:04] LABS: Acetaminophen < 10 ug/mL (10-30); Ethanol < 10 mg/dL (<10); Salicylate < 1.0 mg/dL (2-20)
[2023-04-06 13:05] LABS: Alanine Aminotransferase 25 U/L (6-35); Albumin Level 3.9 g/dL (3.5-5.1); Alkaline Phosphatase 45 U/L (38-126); Anion Gap 6 mmol/L (8-16); Aspartate Amino Transferase 64 U/L (14-36); Bilirubin,Total 0.5 mg/dL (0.2-1.3); Blood Urea Nitrogen 20 mg/dL (7-17); Calcium 8.9 mg/dL (8.4-10.2); Carbon Dioxide 32 mmol/L (22-30); Chloride 100 mmol/L (98-107); Estimated Glomerular Filt Rate 21; Glucose 105 mg/dL (65-110); Potassium 4.7 mmol/L (3.4-5.0); Sodium 138 mmol/L (137-145)
[2023-04-06 13:07] LABS: Magnesium 1.9 mg/dL (1.6-2.3)
--- NOTE | 2023-04-06 13:23 | PC.NURSE ---
SPOKE WITH DINO MEDRANO AT [facility] REGARDING POTENTIAL OVER INGESTION OF PRESCRIPTION MEDS. RECOMMENDS CONTINUED SUPPORTIVE CARE. WATCH FOR CLONIS, TACHYCARDIA,NYSTAGMUS,WIDENED QRS, AGITATION,SEIZURES,ILEUS,URINARY RETENTION. POISON CONTROL RECOMMENDS TO ONLY GIVE BICARB FOR WIDENED QRS
[2023-04-06 13:49] LABS: Lactic Acid Reflex 0.9 mmol/L (0.7-2.0)
[2023-04-06 14:03] LABS: Barbiturate Screen Urine Negative (Negative)
--- NOTE | 2023-04-06 14:03 | ED.AMS ---
HPI - Altered Mental Status General Chief Complaint: Altered Mental Status Stated Complaint: ams Time Seen by Provider: 04/06/23 11:51 History of Present Illness HPI narrative: Patient is a 67-year-old female who presents ER unresponsive from her home. Patient received an intraosseous line in route by EMS. She was administered Narcan with no change. Patient did start vomiting. Here patient is arousable to sternal rub and tells this physician to F-Off. Patient is not able to give any additional history at this time. She has poor peripheral perfusion. Patient did have an empty bottle of amitriptyline that was filled 3 days ago with her. Patient had similar presentation last month. Related Data Home Medications Medication Instructions Recorded Confirmed omeprazole 20 mg capsule,delayed 20 mg PO DAILY 06/10/21 03/07/23 release rosuvastatin 5 mg tablet 5 mg PO DAILY 06/10/21 03/07/23 trazodone 50 mg tablet 100 mg PO HS 06/10/21 03/07/23 olanzapine 7.5 mg tablet 7.5 mg PO BID 03/07/23 03/07/23 Allergies Allergy/AdvReac Type Severity Reaction Status Date / Time ciprofloxacin Allergy Unknown Rash Verified 04/25/22 14:36 Review of Systems Review of Systems: ROS unobtainable: Yes unobtainable due to medical condition [facility] Past Medical History Medical History (Updated 04/06/23 @ 17:29 by Carlitos Gonzales MD) Anemia Anxiety Arthritis Asthma Chronic obstructive pulmonary disease Degenerative disc disease Depression Emphysema of lung Gastroesophageal reflux disease Hepatitis C Treated in 2007. Hypertension Ovarian cancer Peripheral neuropathy due to chemotherapy Skin cancer Tobacco dependence Surgical History Surgical History (Updated 04/06/23 @ 15:39 by Mary Rashid PA-C) History of appendectomy History of hysterectomy History of laminectomy History of lumpectomy of left breast History of open reduction and internal fixation (ORIF) procedure Ankle fracture. History of repair of right rotator cuff History of tonsillectomy Family History Family History Mother Family history of malignant neoplasm Family history of heart disease in male family member before age 55 Sibling Family history of malignant neoplasm of brain Father Family history of emphysema Social History Social History Social History: Surrogate decision maker: Sai Martinez, fransico. Code status: Full code. Smoking packs per day: 1 Smoking cigarettes per day: 20.0 Years smoked: 55 Smoking pack-years: 55.00 Smoking status: Unknown if ever smoked Second hand tobacco smoke exposure: No Additional smoking assessment comments: Down to 3 to 5 cigarettes a day. Alcohol intake: current Alcohol use details: Drinks socially and in moderation. Substance use: unknown Substance use type: marijuana and painkillers Other substance usage details: Uses a few times a week. Living arrangements: alone Additional living arrangements comments: The patient lives in a senior apartment in [place]. Additional occupation/education comments: Retired. Spiritual care concerns: No Exam Narrative: GENERAL: Chronically-appearing, well-nourished, and in moderate distress. HEAD: Normocephalic, atraumatic. EYES: PERRL and EOMI. ENT: Mucous membranes moist. CHEST: Clear to auscultation. No respiratory distress. HEART: Regular rate and rhythm. Normal peripheral pulses. Approximately 3-second capillary refill. ABDOMEN: Soft, nontender, nondistended. EXTREMITIES: Normal range of motion. No edema. Left interosseous lower extremity access. SKIN: Warm, dry, no rash. NEURO: Patient with purposeful movement in all extremities with sternal rub and speaks in full sentences. After walking noxious stimuli she falls back asleep. Course Course Emergency Course: Patient aggressively hydrated with IV fl
[2023-04-06 14:04] LABS: Appearance Urine Clear (Clear); Bacteria Urine None Seen /hpf; Bilirubin Urine Negative (Negative); Blood Urine 3+ (Negative); Color Urine Yellow (Yellow); Glucose Urine UA Negative (Negative); Ketones Urine Negative (Negative); Leukocyte Esterase Ur Negative LEU/UL (Negative); Mucus Urine Present /lpf; Nitrate Urine Negative (Negative); Protein Urine 1+ mg/dL (Negative); RBC Urine 0-2 /hpf (0-2); Specific Grav Ur 1.011 (1.001-1.035); Squamous Epithelial Cell Urine Moderate /hpf (Few); WBC Urine 0-5 /hpf
[2023-04-06 14:06] LABS: Benzodiazepines Screen Urine Negative (Negative)
[2023-04-06 14:08] LABS: Add Urine Microscopic? YES
[2023-04-06 14:17] LABS: Amphetamine Screen Urine Negative (Negative); Cannabinoid Screen Urine Negative (Negative); Cocaine Screen Urine Negative (Negative); Methadone Screen Urine Negative (Negative); Opiate Screen Urine Positive (Negative); Phencyclidine Screen Urine Negative (Negative)
[2023-04-06] MEDS: LACTATED RINGERS 1,000 ML 999 ML IV CONT (14:20)
[2023-04-06] MEDS: LEVALBUTEROL NEB 1.25 MG/3 ML INHALATION (15:26)
[2023-04-06] MEDS: IPRATROPIUM BR 0.02% INH SOLN 0.5 MG/2.5 ML VIAL INHALATION (15:26)
--- NOTE | 2023-04-06 15:29 | PM.IMHP ---
H&P: HPI History of Present Illness Date/Time: 04/06/23 16:30 Chief Complaint: Altered mental status. Narrative: This is a 67-year-old female smoker with COPD, dyslipidemia, depression, anxiety, and history of ovarian cancer who presented to the emergency department earlier today via EMS from home for evaluation of altered mental status. The patient is unable to provide an accurate history at this time and a majority of the following is obtained via a review of her electronic medical records. The patient is known to myself and the hospitalist service from a recent admission on 03/07/2023 at which time she was admitted for altered mental status and suspected overdose on unknown medications after presenting with lethargy and confusion. She was monitored in the ICU closely and she remained stable throughout her stay. Crisis was consulted and cleared the patient for safe discharge with outpatient follow-up. The patient lives alone has a powderer that comes to visit. This morning the patient was found naked in bed and unresponsive to voice and noxious stimuli. EMS was summoned and they were able to arouse her briefly; she reportedly had a bout of emesis not long thereafter. She was reportedly found near an empty bottle of amitriptyline 25 mg 30 tablets which was filled on 04/03/2023 and a bottle of trazodone 150 mg 30 tablets filled on 04/04/2023 with 6 pills remaining in the bottle. It is unclear if she took these medications and in what quantities. It should be noted that she was recently in the hospital just last month with a suspected overdose and she was sent home with a contract after being evaluated by crisis. In the ED: She was afebrile on arrival. She has been persistently in a sinus tachycardia in the low very low 100s. Blood pressures have been at the low end of normal in the 90s over 60s. Labs were significant for a WBC count of 9.2, hemoglobin 11.3, sodium 138, potassium 4.7, calcium 8.9, magnesium 1.9, phosphorus 8.0, BUN 20, creatinine 2.30, AST 64, TSH 7.320. Urine drug screen was positive for opiates. Brain CT showed no acute findings and old infarcts. Chest x-ray did not show any acute infiltrates. EKG showed a sinus rhythm with possible left atrial enlargement and a QTc of 437. She is being admitted to the ICU on suicide watch for close monitoring until she is more alert and awake and able to provide an accurate history. At the time my evaluation she is not answering questions or following commands and she will grimace only to noxious stimuli. Due to concerns for the patient's inability to protect her airway, the decision was made to intubate. Poison Control was contacted and we are following their recommendations. She is currently on a sodium bicarbonate drip. Review of Systems Review of Systems: Unable to obtain accurately given current clinical condition. [facility] Past Medical History Medical History Anemia Anxiety Arthritis Asthma Chronic obstructive pulmonary disease Degenerative disc disease Depression Emphysema of lung Gastroesophageal reflux disease Hepatitis C Treated in 2007. Hypertension Ovarian cancer Peripheral neuropathy due to chemotherapy Skin cancer Tobacco dependence Surgical History Surgical History History of appendectomy History of hysterectomy History of laminectomy History of lumpectomy of left breast History of open reduction and internal fixation (ORIF) procedure Ankle fracture. History of repair of right rotator cuff History of tonsillectomy Family History Family History Mother Family history of malignant neoplasm Family history of heart disease in male family member before age 55 Sibling Family history of malignant neoplasm of brain Father Family history of emphysema Social History Social History (Reviewed 03/09
[2023-04-06] MEDS: NALOXONE HCL INJ 2 MG/2 ML AMP 1 MG IV PUSH (15:38)
[2023-04-06 16:19] LABS: Creatine Kinase 2806 U/L (30-135)
--- NOTE | 2023-04-06 16:23 | ADMGEN ---
This patient, Myriam Martinez, was admitted to Intensive Care Unit-3. Patient/family oriented to hospital policies and general routines including ID bracelet, bed and alarms, visiting hours, pain management, procedures, bathroom and other care routines, personal items, smoking policy, room service/diet, and visiting hours. Information on how to activate the Rapid Response Team has been discussed. Patient/Family are encouraged to report perceived risks to care and to ask questions if they do not understand what they are told or what they should do.
--- NOTE | 2023-04-06 17:30 | WPDPROCEDUR ---
Procedures Intubation Intubation Date: 04/06/23 Intubation Time: 17:15 Consent: Implied consent; pt full code and unable to get ahold of family. A pre-procedural Time-Out was completed immediately before starting the procedure and confirmed: Patient Identification, Site, Procedure, Patient Position and the Availability of Requisite Equipment: Yes Sedative: etomidate Mg given: 20 Paralytic: rocuronium Mg given: 50 Laryngoscope: fiber optic video scope Assist device used: fiber optic device ET tube size: 7.5 Tube secured depth (cm): 23 Tube secured location: lips Tube placement confirmation: visualized tube passing through cords, equal breath sounds bilaterally, no breath sounds over epigastrium and confirmation by capnometry Patient tolerated procedure: well Intubation complications: none Additional comments: Patient had a GCS of 3. She was given 0.4 mg of Narcan without much change. Due to concerns for the patient's ability to protect her airway, the decision was made to intubate. She was preoxygenated with non-rebreather mask and was given etomidate and rocuronium for RSI. [place] scope was used to intubate the patient easily, atraumatically, and on 1st attempt with a 7.5 ET tube which was visualized passing through the cords. Mist was noted in the ET tube in there was positive CO2 colorimetric change. Breath sounds were auscultated bilaterally anteriorly. Post intubation chest x-ray showed the ET tube 5.1 cm above the herbie and it was advanced by 3 cm. Sedation vent settings deferred to apartment maintenance worker.
[2023-04-06] MEDS: NALOXONE HCL 0.4 MG/ML VIAL IV PUSH (17:37)
[2023-04-06] MEDS: FENTANYL 2,500MCG/NS250ML(*CRX 2,500 MCG/250 ML BAG IV CONT (17:38)
[2023-04-06] MEDS: MIDAZOLAM 100MG/NS 100ML(*CRX) 100 MG/100 ML BAG IV CONT (17:39)
[2023-04-06] MEDS: ROCURONIUM BROMIDE 50 MG/5 ML VIAL IV PUSH (17:53)
[2023-04-06] MEDS: ETOMIDATE 20 MG/10 ML AMPUL IV PUSH (17:53)
--- NOTE | 2023-04-06 18:08 | PC.NURSE ---
Patient arrived to ICU -3 with AMS , assessment and medication list completed based on last admission. Attempted to call fransico Gibbs , no answer.
[2023-04-06 18:22] LABS: Alveolar/Arterial O2 Gradient 271.7 mmHg; Base Excess ABG -3.4 mEq/l (+/-2.0); Carboxyhemoglobin 0.3 % THb (0-2.0); Fractional Inspired Oxygen 75 %; HCO3 ABG 23.3 mEq/l (22.0-26.0); Methemoglobin ABG 0.4 %THb (0-1.5); Oxygen Content ABG 16.7 %vol (16.0-22.0); Oxygen Saturation ABG 99.3 % (95.0-100.0); Oxyhemoglobin 97.7 % THb (90.0-100.0); PCO2 ABG 48.8 mmHg (35.0-45.0); PO2 ABG 211.2 mmHg (80.0-100.0); PO2 FiO2 Ratio Arterial Blood 2.82 %; Reduced Hemoglobin 1.6 %THb (0-5.0); Total Hemoglobin 11.8 g/dL (12.0-18.0)
[2023-04-06 18:25] LABS: Arterial Blood Gas PEEP 5 cmH2O; Arterial Blood Gas Vent Mode CMV; Arterial Blood Gas Ventilator rate 18 /MIN; Device VENTILATOR; Modified Allen's Test Unable to perform; Site Drawn RIGHT RADIAL; pH ABG 7.297 (7.350-7.450)
[2023-04-06 18:26] LABS: Arterial Blood Gas Tidal Volume 370 ml
[2023-04-06] MEDS: SODIUM BICARBONATE 8.4% 150 MEQ in DEXTROSE 5% 1,000 ML 950 ML 75 MEQ IV CONT (19:15)
[2023-04-06] MEDS: NOREPINEPHRINE 8 MG/D5W 250 ML 8 MG/250 ML BAG 9.38 MG IV CONT (20:10)
[2023-04-06 20:12] LABS: Free T4 Free Thyroxine 1.35 ng/mL (0.78-2.19)
--- NOTE | 2023-04-06 20:25 | PC.NURSE ---
2025- Sai called and stated that patient is determined to commit suicide, and she was recently discharged from [place] from [facility] for intentional ingestion. Sai stated that she needs to be locked up and not prescribed these medications because she is determined to hurt herself. I updated Sai on her condition and he consented for central line at that time . Sai also stated she has a lot of leg pain.
[2023-04-06 20:50] LABS: Alveolar/Arterial O2 Gradient 327.4 mmHg; Base Excess ABG -0.1 mEq/l (+/-2.0); Fractional Inspired Oxygen 75 %; HCO3 ABG 23.1 mEq/l (22.0-26.0); Oxygen Content ABG 15.2 %vol (16.0-22.0); Oxygen Saturation ABG 99.3 % (95.0-100.0); Oxyhemoglobin 97.6 % THb (90.0-100.0); PCO2 ABG 32.8 mmHg (35.0-45.0); PO2 ABG 172.5 mmHg (80.0-100.0); Total Hemoglobin 10.8 g/dL (12.0-18.0); pH ABG 7.466 (7.350-7.450)
[2023-04-06 20:51] LABS: Device VENTILATOR; Modified Allen's Test Pass; Site Drawn RIGHT RADIAL
[2023-04-06 20:52] LABS: Arterial Blood Gas PEEP 5 cmH2O; Arterial Blood Gas Tidal Volume 380 ml; Arterial Blood Gas Vent Mode CMV; Arterial Blood Gas Ventilator rate 22 /MIN
[2023-04-06] MEDS: MINERAL OIL/WHITE PETROLATUM OINTMENT 1 APPLIC EACH EYE (21:02)
[2023-04-06 21:12] LABS: Anion Gap 5 mmol/L (8-16); Blood Urea Nitrogen 17 mg/dL (7-17); Calcium 7.8 mg/dL (8.4-10.2); Carbon Dioxide 26 mmol/L (22-30); Chloride 106 mmol/L (98-107); Estimated CRCL calculation 39 ml/min; Estimated Glomerular Filt Rate 45; Glucose 111 mg/dL (65-110); Potassium 4.6 mmol/L (3.4-5.0); Sodium 137 mmol/L (137-145)
[2023-04-06 21:35] LABS: Creatine Kinase 7029 U/L (30-135)
--- NOTE | 2023-04-06 22:44 | PC.NURSE ---
2240 04/06 Fentanyl increased due to increased respiratory rate and heart rate.
[2023-04-07] VITALS (57 sets, daily range): BP systolic 67–142; BP diastolic 45–109; PULSE 88–128; RESP 15–31; TEMP 36.8–38.4; O2SAT 93–100; BMI 24.4
--- NOTE | 2023-04-07 00:43 | P.PCNBED_ITS ---
Procedures Central Line Placement Right Femoral: Central Line Date: 04/07/23 Central Line Time: 00:30 Consent: I have discussed with the patient and/or surrogate, the non-emergent placement of a central venous catheter, including its clinical necessity/indication and associated potential risks and complications. The patient and/or surrogate understand(s) and acknowledge(s) the need to proceed with central venous catheter insertion as an important element of the patient's clinical management. Time Out Performed: Yes Patient Position: supine Patient placed on monitor/pulse ox: Yes Provider Prep: mask, sterile gown, sterile gloves, Max. sterile barrier precautions, cap and hand hygiene with conventional soap/water or alcohol based hand rub Central line prep: 2% Chlorhexidine scrub Local anesthesia used: lidocaine 1% Amount of anesthesia used (ml): 5 Sterile US Technique with sterile gel/sterile probe covers: Yes Central line lumen inserted: triple [place]: 7 Depth of Insertion (cm): 20 Post Procedure: sutured in place, good blood return, all ports aspirated, flushed, capped, transparent dressing, hemostatic product, antimicrobial product and aseptic technique maintained throughout procedure Post procedure x-ray: other (n/a with femoral placement) Patient tolerated procedure: well Complications: none
[2023-04-07] MEDS: PIPERACILLIN/TAZ 2.25G/NS 50ML 2.25 GM/50 ML BAG IVPB ×2 (01:53→05:00)
[2023-04-07] MEDS: LEVALBUTEROL NEB 1.25 MG/3 ML INHALATION ×4 (02:21→20:13)
[2023-04-07] MEDS: IPRATROPIUM BR 0.02% INH SOLN 0.5 MG/2.5 ML VIAL INHALATION ×4 (02:22→20:13)
--- NOTE | 2023-04-07 03:05 | PC.NURSE ---
04/06 1950 2 pill bottles and pt necklace placed in safe.
[2023-04-07] MEDS: CENTRAL LINE FLUSH 20 ML IV PUSH (04:58)
[2023-04-07] MEDS: CENTRAL LINE FLUSH 10 ML IV PUSH ×4 (05:01→20:25)
[2023-04-07 05:06] LABS: Basophils Percent Auto 0.3 % (0.2-1.2); Eosinophils Absolute Auto 0.1 K/mm3 (0-0.3); Eosinophils Percent Auto 0.8 % (0-4.4); Hematocrit 31.2 % (37.0-47.0); Hemoglobin 10.1 g/dL (12.0-15.0); Immature Granulocyte Absolute 0.06 K/mm3 (0.00-0.031); Immature Granulocyte Percent A 0.6 % (0-0.5); Lymphocytes Absolute Auto 1.83 K/mm3 (0.9-3.2); Lymphocytes Percent Auto 17.2 % (18.3-44.2); Mean Corpuscular HGB Conc 32.4 g/dl (32-36); Mean Corpuscular Hemoglobin 31.2 pg (26-34); Mean Corpuscular Volume 96.3 fl (80-100); Mean Platelet Volume 9.3 fl (7.4-10.4); Monocytes Absolute Auto 0.8 K/mm3 (0.1-0.6); Monocytes Percent Auto 7.7 % (2.6-8.5); Neutrophils Absolute Auto 7.8 K/mm3 (1.3-6.7); Neutrophils Percent Auto 73.4 % (45.5-73.1); Platelet Count Result 159 k/mm3 (150-375); Red Blood Count 3.24 M/mm3 (4.2-5.4); Red Cell Distribution Width 13.8 % (11.5-14.5); White Blood Count 10.6 K/mm3 (4.5-10.0)
[2023-04-07 05:11] LABS: Alveolar/Arterial O2 Gradient 272.1 mmHg; Base Excess ABG 2.1 mEq/l (+/-2.0); Carboxyhemoglobin 0.2 % THb (0-2.0); Fractional Inspired Oxygen 60 %; HCO3 ABG 26.5 mEq/l (22.0-26.0); Methemoglobin ABG 0.2 %THb (0-1.5); Oxygen Content ABG 15.4 %vol (16.0-22.0); Oxygen Saturation ABG 98.2 % (95.0-100.0); Oxyhemoglobin 96.9 % THb (90.0-100.0); PCO2 ABG 40.9 mmHg (35.0-45.0); PO2 ABG 110.7 mmHg (80.0-100.0); PO2 FiO2 Ratio Arterial Blood 1.84 %; Reduced Hemoglobin 2.7 %THb (0-5.0); Site Drawn RIGHT RADIAL; Total Hemoglobin 11.2 g/dL (12.0-18.0)
[2023-04-07 05:12] LABS: Arterial Blood Gas PEEP 5 cmH2O; Arterial Blood Gas Tidal Volume 380 ml; Arterial Blood Gas Vent Mode CMV; Arterial Blood Gas Ventilator rate 22 /MIN; Device VENTILATOR; Modified Allen's Test Pass
[2023-04-07 05:20] LABS: Alanine Aminotransferase 41 U/L (6-35); Albumin Level 2.9 g/dL (3.5-5.1); Alkaline Phosphatase 43 U/L (38-126); Anion Gap 0 mmol/L (8-16); Aspartate Amino Transferase 116 U/L (14-36); Bilirubin,Total 0.7 mg/dL (0.2-1.3); Blood Urea Nitrogen 16 mg/dL (7-17); Calcium 7.7 mg/dL (8.4-10.2); Carbon Dioxide 34 mmol/L (22-30); Chloride 103 mmol/L (98-107); Estimated CRCL calculation 59 ml/min; Estimated Glomerular Filt Rate > 60; Glucose 135 mg/dL (65-110); Magnesium 1.6 mg/dL (1.6-2.3); Phosphorus 3.2 mg/dL (2.5-4.5); Potassium 3.3 mmol/L (3.4-5.0); Sodium 137 mmol/L (137-145)
[2023-04-07] MEDS: BUDESONIDE RESPULE NEB 0.5 MG/2 ML AMP INHALATION (07:20)
[2023-04-07] MEDS: MAGNESIUM SULF 2 GM/WATER 50ML 2 GM/50 ML BAG IVPB (07:32)
[2023-04-07] MEDS: POTASSIUM CHLORIDE 20 MEQ PACKET (FOR LIQUID) 40 MEQ PO (07:32)
[2023-04-07] MEDS: ENOXAPARIN 40 MG/0.4 ML SYRINGE SUB-Q (07:33)
[2023-04-07] MEDS: MINERAL OIL/WHITE PETROLATUM OINTMENT 1 APPLIC EACH EYE ×2 (07:33→20:24)
[2023-04-07] MEDS: PANTOPRAZOLE SODIUM IV 40 MG VIAL IV PUSH (07:54)
[2023-04-07 08:43] LABS: Creatine Kinase 4365 U/L (30-135)
--- NOTE | 2023-04-07 09:33 | WPDCNINT ---
Assessment and Plan Assessment and plan (1) Acute respiratory failure: Code(s): J96.00 - Acute respiratory failure, unspecified whether with hypoxia or hypercapnia Status: Acute Assessment and Plan: Acute respiratory failure secondary to altered mental status due to medication overdose -according the records patient was intubated for airway protection -chest x-ray showed opacities bilateral lower lung zones R>L -possible aspiration pneumonia as there was emesis in the CPAP mask when patient was brought up to the ICU during the bedside RN -currently on CMV mode of ventilation, peep of 5, 60% FiO2, ventilator adjusted, wean FiO2 to maintain O2 sats greater than 92%. Peep increased to 8 -patient has been started on Unasyn(04/07) aspiration pneumonia -sedated with fentanyl and Versed infusion, daily SAT and SBT Maintain RASS of 0 to -2 (2) Overdose: Code(s): T50.901A - Poisoning by unspecified drugs, medicaments and biological substances, accidental (unintentional), initial encounter Status: Acute Assessment and Plan: Patient was found unresponsive at home, when EMS arrived and place her on CPAP, which did not help within the put her on non-rebreather. EMS found empty bottles of amitriptyline 25 mg 30 tablets which were filled on 04/03/2023 and a bottle of trazodone 150 mg 30 tablets filled on 04/04/2023 with 6 pills remaining in the bottle. -unknown if the patient did take the medications are not but recently she was admitted to [facility] in February 2023 with similar complaints -will consider this is medication overdose and suicidal attempt since she has a recent history of it -patient had seizure-like activity this morning so was started on Keppra, both amitriptyline and trazodone toxicity can cause seizures (3) Suicidal behavior: Code(s): R45.89 - Other symptoms and signs involving emotional state Status: Acute Assessment and Plan: Likely suicide behavior -will continue suicide precautions -bedside sitter -once she is extubated and medically stable will have care coordination and crisis management evaluate the patient for possible placement in a psychiatric unit (4) Rhabdomyolysis: Code(s): M62.82 - Rhabdomyolysis Status: Acute Assessment and Plan: Patient presented with elevated CK levels of >7000, adequately fluid-resuscitated, CK levels trending down -continue sodium bicarb infusion (5) Altered mental status: Code(s): R41.82 - Altered mental status, unspecified Status: Acute Assessment and Plan: Altered mental status likely related to trazodone and amitriptyline overdose -intubated and sedated -once the medications are out of her system her mental status should improve (6) GERRI (acute kidney injury): Code(s): N17.9 - Acute kidney failure, unspecified Status: Acute Assessment and Plan: Acute kidney injury likely related to rhabdomyolysis, hypovolemia, decreased oral intake. Initial creatinine 2.3 on admission, -patient has been adequately fluid resuscitated -creatinine down to 0.8 -continue to monitor renal function, electrolytes and urine output 04/06/2023: Renal ultrasound : Normal kidney size, no hydronephrosis (7) Aspiration pneumonitis: Code(s): J69.0 - Pneumonitis due to inhalation of food and vomit Status: Acute Assessment and Plan: According the bedside RN patient had emesis in the CPAP mask, -chest x-ray shows bilateral lower lung opacities which could be related to aspiration pneumonia/pneumonitis -patient started on Unasyn Plan DVT prophylaxis: Lovenox Stress ulcer prophylaxis: Protonix Nutrition: Will start tube feeds Code Status: Full code Critical Care Time Spent: 49 minutes Due to a high probability of clinically significant, life threatening deterioration, the patient required my highest level of preparedness to intervene emergently and I personally spent this critical ca
--- NOTE | 2023-04-07 09:36 | PM.IMPN ---
Progress Note: A&P Assessment and Plan (1) Altered mental status: Code(s): R41.82 - Altered mental status, unspecified Status: Acute Assessment and Plan: Brain CT shows no acute findings and there is no findings on her workup to suggest active infection. Concerns are yet again for an overdose possibly on amitriptyline and trazodone. Poison Control has been contacted and we are following their recommendations. The patient is being monitored closely on telemetry; thus far her QTC has been normal. She is currently on a bicarbonate drip. Watch for seizure-like activities. (2) Overdose: Code(s): T50.901A - Poisoning by unspecified drugs, medicaments and biological substances, accidental (unintentional), initial encounter Status: Acute Assessment and Plan: Possible overdose on amitriptyline and trazodone. Poison Control contacted. She will likely need placement on discharge as she was just hospitalized for similar reasons last month. Initiate suicide precautions. (3) Acute kidney injury: Code(s): N17.9 - Acute kidney failure, unspecified Status: Acute Assessment and Plan: Likely due to a combination of factors including dehydration, hypoperfusion from hypotension, and rhabdomyolysis. Edmonds catheter has been inserted and she is not retaining urine. Monitor strict I/O. Renal ultrasound ordered for a.m.. Avoid nephrotoxic agents. (4) Rhabdomyolysis: Code(s): M62.82 - Rhabdomyolysis Status: Acute Assessment and Plan: Patient is currently on a bicarbonate drip. Trend CK. (5) Acute respiratory failure: Code(s): J96.00 - Acute respiratory failure, unspecified whether with hypoxia or hypercapnia Status: Acute Assessment and Plan: The patient was intubated due to impending respiratory failure and inability to protect airway adequately. Urine drug screen was positive for opioids and she was given Narcan in the emergency department and then the ICU without any significant response. Vent settings and sedation per coal yard supervisor. Continue unasyn for possible aspiration. (6) Depression with anxiety: Code(s): F41.8 - Other specified anxiety disorders Status: Acute Assessment and Plan: Psychiatric medications currently on hold. (7) Chronic obstructive pulmonary disease: Code(s): J44.9 - Chronic obstructive pulmonary disease, unspecified Status: Chronic Assessment and Plan: Currently on scheduled bronchodilators. Plan DVT prophylaxis with SCDs GI prophylaxis with PPI Code status full code Subjective Date/time seen: 04/07/23 09:36 Interval history: 67-year-old female with past medical history of COPD, depression, anxiety, recent admission 03/09 for intentional overdose of tramadol, trazodone, methocarbamol, amitriptyline, cannabinoids, is presenting with a recurrence of the same. Patient was found at home, unresponsive, brought to the ER and intubated, empty pill bottles near patient, concerning for intentional overdose of amitriptyline and trazodone. No overnight events noted. Afebrile, hypotension noted. Intubated, sedated. Review of Systems Review of Systems: ROS unobtainable: Yes unobtainable due to endotracheal tube Exam Narrative: General: No acute distress, int/sed HEENT: Atraumatic, normocephalic, mucous membranes moist CV: Regular rate and rhythm, S1, S2 Lungs: Coarse breath sounds throughout, dimninished at bases Abdomen: Soft, nontender, nondistended Extremities: Normal to inspection Skin: No rashes noted, no lesions or wounds seen Psych: Unable to assess Objective Data Vital Signs Vital Signs: Vital Signs - 24 hr 04/06/23 11:51 04/06/23 13:54 04/06/23 14:00 Temperature 97.9 F Pulse Rate 85 101 H 100 Respiratory Rate 20 11 L 12 Blood Pressure 108/83 90/63 L 83/66 L Pulse Oximetry 94 97 97 Oxygen Delivery Room Air Oxygen Flow
[2023-04-07] MEDS: SODIUM BICARBONATE 8.4% 150 MEQ in DEXTROSE 5% 1,000 ML 950 ML 75 MEQ IV CONT (10:19)
[2023-04-07] MEDS: levETIRAcetam 1000MG/NACL100ML 1,000 MG/100 ML BAG 400 MG IVPB (10:19)
[2023-04-07] MEDS: AMPICILLIN SULB 3 GM/NS 100 ML 3 GM/100 ML VIAL IVPB ×2 (10:20→17:56)
[2023-04-07] MEDS: ACETAMINOPHEN 325 MG TABLET 650 MG PO (12:03)
--- NOTE | 2023-04-07 12:52 | ECG_ITS ---
Measurements Intervals [place] Rate: 97 P: 76 WA: 140 QRS: 86 QRSD: 83 T: 86 QT: 308 QTc: 391 Interpretive Statements SINUS RHYTHM NONSPECIFIC T-WAVE ABNORMALITY- HIGH LATERAL LEADS BASELINE ARTIFACT- V3, V6 BORDERLINE ECG COMPARED TO ECG 04/06/2023 12:04:23 T-WAVE ABNORMALITY NOW PRESENT Electronically Signed On 04-07-2023 16:25:08 CDT by Abraham Whitaker D.O.
[2023-04-07] MEDS: levETIRAcetam 500MG/NACL 100ML 500 MG/100 ML BAG 400 MG IVPB (20:24)
--- NOTE | 2023-04-07 20:26 | PC.NURSE ---
Sedation reported to this RN as fentanyl 75mcg and versed 3mg by previous RN. Pumps running at said rates, but not charted as such by previous RN. Also, levophed was restarted at 2 mcg at 1920 and was not charted as paused prior to that by previous RN.
--- NOTE | 2023-04-07 20:55 | PC.NURSE ---
Call received from [place] poison control. Updated on ekg results from this afternoon and overall patient condition.
[2023-04-08] VITALS (47 sets, daily range): BP systolic 76–163; BP diastolic 56–98; PULSE 64–123; RESP 21–30; TEMP 36.5–37.4; O2SAT 91–100
--- NOTE | 2023-04-08 | ECHO_ITS ---
Patient Info Name: Myriam Martinez Age: 67 years : 1955 Gender: Female Ht: 67 in Wt: 162 lbs BSA: 1.87 m2 HR: 78 bpm BP: 113 / 66 mmHg Heart Rhythm: Sinus Rhythm Technical Quality: Fair Exam Date: 04/08/2023 8:55 AM Exam Location: [facility] Room: ICU3 Patient Status: Inpatient Admit Date: 04/06/2023 Staff Ordering Physician: Liseth Vines MD Set Rider: Vidya Rey RDCS Attending Provider: Cornell Temple MD Referring Physician: Jasmyn ARAUJO; Exam Type: CA echo doppler color flow Study Info Indications - PULMONARY EDEMA Complete two-dimensional, color flow and Doppler transthoracic echocardiogram is performed. Summary 1. Complete two-dimensional, color flow and Doppler transthoracic echocardiogram is performed. 2. Left ventricular chamber dimension is normal. 3. Left ventricular systolic function is hyperdynamic, estimated at >70%. 4. There is no increased left ventricular wall thickness. 5. The left ventricular diastolic function is grade I diastolic dysfunction. 6. Left atrial chamber dimension is mildly enlarged. 7. There is mild tricuspid valve regurgitation. 8. Moderate pulmonary hypertension, estimated pulmonary arterial systolic pressure is 52 mmHg. 9. The pericardium appears increased echogenicity of the pericardium. 10. There is small pericardial effusion. Left Ventricle Left ventricular chamber dimension is normal. Left ventricular systolic function is hyperdynamic, estimated at >70%. There is no increased left ventricular wall thickness. The left ventricular diastolic function is grade I diastolic dysfunction. Right Ventricle Right ventricular chamber dimension is normal. Right ventricular systolic function is normal. Left Atria Left atrial chamber dimension is mildly enlarged. Right Atria Right atrial chamber dimension is normal. Atrial Septum Intact interatrial septum visualized by color flow imaging. Aortic Valve The aortic valve is trileaflet. There is mild aortic valve sclerosis. There is no aortic valve stenosis. There is trace aortic valve regurgitation. Pulmonic Valve The pulmonic valve is normal. There is no pulmonic valve stenosis. There is trace pulmonic regurgitation. Mitral Valve The mitral valve has normal leaflets. There is no mitral valve stenosis. There is trace mitral valve regurgitation. Tricuspid Valve The tricuspid valve leaflets are normal. There is no significant tricuspid valve stenosis. There is mild tricuspid valve regurgitation. Moderate pulmonary hypertension, estimated pulmonary arterial systolic pressure is 52 mmHg. Pericardium/Pleural The pericardium appears increased echogenicity of the pericardium. There is small pericardial effusion. Inferior Vena Cava Dilated inferior vena cava with <50% collapse upon inspiration consistent with elevated right atrial pressure, 15 mmHg. Aorta The aortic root size at the sinus of Valsalva is normal. Left Ventricular Outflow Tract Name Value Normal LVOT 2D LVOT Diameter 2.0 cm LVOT Doppler LVOT Peak Gradient 8 mmHg LVOT Mean Gradient 4 mmHg LVOT VTI
[2023-04-08] MEDS: AMPICILLIN SULB 3 GM/NS 100 ML 3 GM/100 ML VIAL IVPB ×4 (00:24→17:57)
[2023-04-08] MEDS: SODIUM BICARBONATE 8.4% 150 MEQ in DEXTROSE 5% 1,000 ML 950 ML 75 MEQ IV CONT (00:24)
[2023-04-08] MEDS: IPRATROPIUM BR 0.02% INH SOLN 0.5 MG/2.5 ML VIAL INHALATION ×4 (02:24→21:11)
[2023-04-08] MEDS: LEVALBUTEROL NEB 1.25 MG/3 ML INHALATION ×4 (02:24→21:11)
[2023-04-08 05:02] LABS: Alveolar/Arterial O2 Gradient 132.6 mmHg; Base Excess ABG 8.1 mEq/l (+/-2.0); Carboxyhemoglobin 0.3 % THb (0-2.0); Fractional Inspired Oxygen 40 %; HCO3 ABG 33.9 mEq/l (22.0-26.0); Methemoglobin ABG 0.3 %THb (0-1.5); Oxyhemoglobin 95.6 % THb (90.0-100.0); PCO2 ABG 53.1 mmHg (35.0-45.0); PO2 ABG 91.5 mmHg (80.0-100.0); PO2 FiO2 Ratio Arterial Blood 2.29 %; Reduced Hemoglobin 3.8 %THb (0-5.0); Total Hemoglobin 11.8 g/dL (12.0-18.0); pH ABG 7.423 (7.350-7.450)
[2023-04-08 05:03] LABS: Arterial Blood Gas PEEP 8 cmH2O; Arterial Blood Gas Tidal Volume 380 ml; Arterial Blood Gas Vent Mode CMV; Arterial Blood Gas Ventilator rate 22 /MIN; Device VENTILATOR; Modified Allen's Test Pass; Site Drawn LEFT RADIAL
[2023-04-08] MEDS: CENTRAL LINE FLUSH 10 ML IV PUSH ×4 (06:10→20:35)
[2023-04-08] MEDS: MIDAZOLAM 100MG/NS 100ML(*CRX) 100 MG/100 ML BAG IV CONT (06:12)
[2023-04-08] MEDS: NOREPINEPHRINE 8 MG/D5W 250 ML 8 MG/250 ML BAG 5.63 MG IV CONT (06:12)
[2023-04-08 06:37] LABS: Basophils Percent Auto 0.4 % (0.2-1.2); Eosinophils Absolute Auto 0.2 K/mm3 (0-0.3); Eosinophils Percent Auto 2.5 % (0-4.4); Hematocrit 27.6 % (37.0-47.0); Hemoglobin 8.8 g/dL (12.0-15.0); Immature Granulocyte Absolute 0.05 K/mm3 (0.00-0.031); Immature Granulocyte Percent A 0.5 % (0-0.5); Immature Platelet Fraction Pct 4.3 % (0.9-11.2); Lymphocytes Absolute Auto 1.67 K/mm3 (0.9-3.2); Lymphocytes Percent Auto 17.6 % (18.3-44.2); Mean Corpuscular HGB Conc 31.9 g/dl (32-36); Mean Corpuscular Hemoglobin 30.8 pg (26-34); Mean Corpuscular Volume 96.5 fl (80-100); Mean Platelet Volume 9.8 fl (7.4-10.4); Monocytes Absolute Auto 0.8 K/mm3 (0.1-0.6); Monocytes Percent Auto 8.4 % (2.6-8.5); Neutrophils Absolute Auto 6.7 K/mm3 (1.3-6.7); Neutrophils Percent Auto 70.6 % (45.5-73.1); Platelet Count Result 145 k/mm3 (150-375); Red Blood Count 2.86 M/mm3 (4.2-5.4); Red Cell Distribution Width 13.8 % (11.5-14.5); White Blood Count 9.5 K/mm3 (4.5-10.0)
[2023-04-08 06:48] LABS: Alanine Aminotransferase 36 U/L (6-35); Albumin Level 2.8 g/dL (3.5-5.1); Alkaline Phosphatase 51 U/L (38-126); Aspartate Amino Transferase 63 U/L (14-36); Bilirubin,Total 0.5 mg/dL (0.2-1.3); Blood Urea Nitrogen 13 mg/dL (7-17); Calcium 7.6 mg/dL (8.4-10.2); Carbon Dioxide > 40 mmol/L (22-30); Chloride 95 mmol/L (98-107); Creatine Kinase 1030 U/L (30-135); Estimated CRCL calculation 90 ml/min; Estimated Glomerular Filt Rate > 60; Glucose 129 mg/dL (65-110); Magnesium 1.8 mg/dL (1.6-2.3); Phosphorus 2.5 mg/dL (2.5-4.5); Potassium 3.5 mmol/L (3.4-5.0); Sodium 135 mmol/L (137-145)
--- NOTE | 2023-04-08 07:53 | PM.IMPN ---
Progress Note: A&P Assessment and Plan (1) Altered mental status: Code(s): R41.82 - Altered mental status, unspecified Status: Acute Assessment and Plan: Brain CT shows no acute findings and there is no findings on her workup to suggest active infection. Concerns are yet again for an overdose possibly on amitriptyline and trazodone. Poison Control has been contacted and we are following their recommendations. The patient is being monitored closely on telemetry; thus far her QTC has been normal. Started on keppra for seizure prophylaxis and unasyn for possible asp pna. 04/08: weaned off bicarbonate drip (2) Overdose: Code(s): T50.901A - Poisoning by unspecified drugs, medicaments and biological substances, accidental (unintentional), initial encounter Status: Acute Assessment and Plan: Possible overdose on amitriptyline and trazodone. Poison Control contacted. She will likely need placement on discharge as she was just hospitalized for similar reasons last month. Initiate suicide precautions. (3) Acute kidney injury: Code(s): N17.9 - Acute kidney failure, unspecified Status: Acute Assessment and Plan: Likely due to a combination of factors including dehydration, hypoperfusion from hypotension, and rhabdomyolysis. Edmonds catheter has been inserted and she is not retaining urine. Monitor strict I/O. Renal ultrasound 04/06 wnl. Avoid nephrotoxic agents. 04/08: resolved (4) Rhabdomyolysis: Code(s): M62.82 - Rhabdomyolysis Status: Acute Assessment and Plan: 04/08: resolving, CK 1030 (5) Acute respiratory failure: Code(s): J96.00 - Acute respiratory failure, unspecified whether with hypoxia or hypercapnia Status: Acute Assessment and Plan: The patient was intubated due to impending respiratory failure and inability to protect airway adequately. Urine drug screen was positive for opioids and she was given Narcan in the emergency department and then the ICU without any significant response. Vent settings and sedation per nurse private duty. Continue unasyn for possible aspiration started 04/07, previously given dose zosyn in ER (6) Depression with anxiety: Code(s): F41.8 - Other specified anxiety disorders Status: Acute Assessment and Plan: Psychiatric medications currently on hold. (7) Chronic obstructive pulmonary disease: Code(s): J44.9 - Chronic obstructive pulmonary disease, unspecified Status: Chronic Assessment and Plan: Currently on scheduled bronchodilators. Plan DVT prophylaxis with lovenox GI prophylaxis with PPI Code status full code Subjective Date/time seen: 04/08/23 07:53 Interval history: 67-year-old female with past medical history of COPD, depression, anxiety, recent admission 03/09 for intentional overdose of tramadol, trazodone, methocarbamol, amitriptyline, cannabinoids, is presenting with a recurrence of the same. Patient was found at home, unresponsive, brought to the ER and intubated, empty pill bottles near patient, concerning for intentional overdose of amitriptyline and trazodone. No overnight events noted. Tmax 99.2 today. Intubated, sedated. Review of Systems Review of Systems: ROS unobtainable: Yes unobtainable due to endotracheal tube Exam Narrative: General: No acute distress, int/sed HEENT: Atraumatic, normocephalic, mucous membranes moist CV: Regular rate and rhythm, S1, S2 Lungs: Coarse breath sounds throughout, dimninished at bases Abdomen: Soft, nontender, nondistended Extremities: Normal to inspection Skin: No rashes noted, no lesions or wounds seen Psych: Unable to assess Objective Data Vital Signs Vital Signs: Vital Signs - 24 hr 04/07/23 09:15 04/07/23 10:15 04/07/23 10:22 Temperature Pulse Rate 118 H 108 H 105 H Respiratory Rate 24 H 22 H Blood Pressure 67/45 L Pulse Oximetry Oxy
[2023-04-08] MEDS: levETIRAcetam 500MG/NACL 100ML 500 MG/100 ML BAG 400 MG IVPB ×2 (08:44→20:35)
[2023-04-08] MEDS: MAGNESIUM SULF 2 GM/WATER 50ML 2 GM/50 ML BAG IVPB (08:44)
[2023-04-08] MEDS: POTASSIUM CHLORIDE 20 MEQ PACKET (FOR LIQUID) 40 MEQ FEED TUBE (08:44)
[2023-04-08] MEDS: ENOXAPARIN 40 MG/0.4 ML SYRINGE SUB-Q (08:45)
[2023-04-08] MEDS: PANTOPRAZOLE SODIUM IV 40 MG VIAL IV PUSH (08:45)
[2023-04-08] MEDS: MINERAL OIL/WHITE PETROLATUM OINTMENT 1 APPLIC EACH EYE ×2 (08:45→20:35)
--- NOTE | 2023-04-08 08:53 | WPDINTPN ---
Progress Note: A&P Assessment and Plan (1) Acute respiratory failure: Code(s): J96.00 - Acute respiratory failure, unspecified whether with hypoxia or hypercapnia Status: Acute Assessment and Plan: Acute respiratory failure secondary to altered mental status due to medication overdose -according the records patient was intubated for airway protection -chest x-ray on admission showed opacities bilateral lower lung zones R>L -possible aspiration pneumonia as there was emesis in the CPAP mask when patient was brought up to the ICU during the bedside RN -chest x-ray this morning: Minimal bibasilar airspace opacity, consistent with atelectasis versus pneumonia -currently on CMV mode of ventilation, peep of 5, 60% FiO2, wean FiO2 to maintain O2 sats greater than 92%. Peep will be decreased to 5, ETT will be pulled out 2 cm -patient has been started on Unasyn(04/07) for aspiration pneumonia -sedated with fentanyl and Versed infusion, daily SAT and SBT, have asked the bedside RN to discontinue the sedation, will try and wake up the patient -if need be will start patient on Precedex infusion (2) Overdose: Code(s): T50.901A - Poisoning by unspecified drugs, medicaments and biological substances, accidental (unintentional), initial encounter Status: Acute Assessment and Plan: Patient was found unresponsive at home, when EMS arrived and place her on CPAP, which did not help within the put her on non-rebreather. EMS found empty bottles of amitriptyline 25 mg 30 tablets which were filled on 04/03/2023 and a bottle of trazodone 150 mg 30 tablets filled on 04/04/2023 with 6 pills remaining in the bottle. -unknown if the patient did take the medications are not but recently she was admitted to [facility] in February 2023 with similar complaints -will consider this as medication overdose and suicidal attempt since she has a recent history of it -patient had seizure-like activity this morning so was started on Keppra, both amitriptyline and trazodone toxicity can cause seizures (3) Suicidal behavior: Code(s): R45.89 - Other symptoms and signs involving emotional state Status: Acute Assessment and Plan: Likely suicide behavior -will continue suicide precautions -bedside sitter -once she is extubated and medically stable will have care coordination and crisis management evaluate the patient for possible placement in a psychiatric unit (4) Rhabdomyolysis: Code(s): M62.82 - Rhabdomyolysis Status: Acute Assessment and Plan: Patient presented with elevated CK levels of >7000, adequately fluid-resuscitated, CK levels trending down -CK levels trending down nicely, will continue to monitor -will discontinue sodium bicarb infusion (5) Altered mental status: Code(s): R41.82 - Altered mental status, unspecified Status: Acute Assessment and Plan: Altered mental status likely related to trazodone and amitriptyline overdose -intubated and sedated -once the medications are out of her system her mental status should improve -discontinue sedation medications (6) GERRI (acute kidney injury): Code(s): N17.9 - Acute kidney failure, unspecified Status: Acute Assessment and Plan: Acute kidney injury likely related to rhabdomyolysis, hypovolemia, decreased oral intake. Initial creatinine 2.3 on admission, -patient has been adequately fluid resuscitated -creatinine down to 0.5 -continue to monitor renal function, electrolytes and urine output 04/06/2023: Renal ultrasound : Normal kidney size, no hydronephrosis (7) Aspiration pneumonitis: Code(s): J69.0 - Pneumonitis due to inhalation of food and vomit Status: Acute Assessment and Plan: According the bedside RN patient had emesis in the CPAP mask, -chest x-ray shows bilateral lower lung opacities which could be related to aspiration pneumonia/pneumonitis -patient started on Unasyn (04/07) Plan DVT
[2023-04-08] MEDS: BUDESONIDE RESPULE NEB 0.5 MG/2 ML AMP INHALATION ×2 (09:02→21:11)
[2023-04-08] MEDS: FENTANYL 2,500MCG/NS250ML(*CRX 2,500 MCG/250 ML BAG 7.5 MCG IV CONT (10:01)
[2023-04-08] MEDS: dexmedeTOMIDine 400 MCG/100 ML 400 MCG/100 ML BAG IV CONT (12:09)
[2023-04-08] MEDS: dexmedeTOMIDine 400 MCG/100 ML 400 MCG/100 ML BAG 14.7 MCG IV CONT (20:33)
[2023-04-08] MEDS: DOCUSATE SODIUM LIQ 100 MG/10 ML UDC PO (20:35)
[2023-04-09] VITALS (41 sets, daily range): BP systolic 99–148; BP diastolic 78–99; PULSE 74–102; RESP 14–33; TEMP 36.3–36.8; O2SAT 93–100
[2023-04-09] MEDS: AMPICILLIN SULB 3 GM/NS 100 ML 3 GM/100 ML VIAL IVPB ×5 (00:43→23:39)
[2023-04-09] MEDS: dexmedeTOMIDine 400 MCG/100 ML 400 MCG/100 ML BAG 20.21 MCG IV CONT ×2 (02:01→07:20)
[2023-04-09] MEDS: LEVALBUTEROL NEB 1.25 MG/3 ML INHALATION ×4 (02:25→21:04)
[2023-04-09] MEDS: IPRATROPIUM BR 0.02% INH SOLN 0.5 MG/2.5 ML VIAL INHALATION ×4 (02:25→21:04)
[2023-04-09] MEDS: FUROSEMIDE INJ 40 MG/4 ML VIAL IV PUSH (02:41)
[2023-04-09 04:45] LABS: Basophils Percent Auto 0.4 % (0.2-1.2); Eosinophils Absolute Auto 0.3 K/mm3 (0-0.3); Eosinophils Percent Auto 4.3 % (0-4.4); Hematocrit 30.6 % (37.0-47.0); Immature Granulocyte Absolute 0.04 K/mm3 (0.00-0.031); Immature Granulocyte Percent A 0.5 % (0-0.5); Immature Platelet Fraction Pct 5.7 % (0.9-11.2); Lymphocytes Absolute Auto 1.22 K/mm3 (0.9-3.2); Lymphocytes Percent Auto 15.9 % (18.3-44.2); Mean Corpuscular HGB Conc 32.7 g/dl (32-36); Mean Corpuscular Hemoglobin 31.3 pg (26-34); Mean Corpuscular Volume 95.6 fl (80-100); Mean Platelet Volume 9.5 fl (7.4-10.4); Monocytes Absolute Auto 0.6 K/mm3 (0.1-0.6); Monocytes Percent Auto 7.2 % (2.6-8.5); Neutrophils Absolute Auto 5.5 K/mm3 (1.3-6.7); Neutrophils Percent Auto 71.7 % (45.5-73.1); Platelet Count Result 156 k/mm3 (150-375); Red Cell Distribution Width 13.6 % (11.5-14.5); White Blood Count 7.7 K/mm3 (4.5-10.0)
[2023-04-09 05:01] LABS: Alanine Aminotransferase 43 U/L (6-35); Albumin Level 3.4 g/dL (3.5-5.1); Alkaline Phosphatase 58 U/L (38-126); Aspartate Amino Transferase 61 U/L (14-36); Bilirubin,Total 0.4 mg/dL (0.2-1.3); Blood Urea Nitrogen 12 mg/dL (7-17); Calcium 8.8 mg/dL (8.4-10.2); Carbon Dioxide > 40 mmol/L (22-30); Chloride 97 mmol/L (98-107); Creatine Kinase 601 U/L (30-135); Estimated CRCL calculation 89 ml/min; Estimated Glomerular Filt Rate > 60; Glucose 127 mg/dL (65-110); Magnesium 1.8 mg/dL (1.6-2.3); Phosphorus 3.6 mg/dL (2.5-4.5); Potassium 3.8 mmol/L (3.4-5.0); Sodium 139 mmol/L (137-145)
[2023-04-09] MEDS: CENTRAL LINE FLUSH 10 ML IV PUSH ×3 (06:18→20:41)
[2023-04-09 06:29] LABS: Alveolar/Arterial O2 Gradient 67.5 mmHg; Base Excess ABG 8.1 mEq/l (+/-2.0); Carboxyhemoglobin 0.3 % THb (0-2.0); Fractional Inspired Oxygen 30 %; HCO3 ABG 33.9 mEq/l (22.0-26.0); Methemoglobin ABG 0.1 %THb (0-1.5); Oxygen Content ABG 16.3 %vol (16.0-22.0); Oxygen Saturation ABG 96.4 % (95.0-100.0); Oxyhemoglobin 95.3 % THb (90.0-100.0); PCO2 ABG 52.5 mmHg (35.0-45.0); PO2 ABG 84.7 mmHg (80.0-100.0); PO2 FiO2 Ratio Arterial Blood 2.82 %; Reduced Hemoglobin 4.3 %THb (0-5.0); Total Hemoglobin 12.1 g/dL (12.0-18.0); pH ABG 7.428 (7.350-7.450)
[2023-04-09 06:31] LABS: Device VENTILATOR; Modified Allen's Test Pass; Site Drawn RIGHT RADIAL
[2023-04-09 06:32] LABS: Arterial Blood Gas PEEP 8 cmH2O; Arterial Blood Gas Tidal Volume 380 ml; Arterial Blood Gas Vent Mode CMV; Arterial Blood Gas Ventilator rate 22 /MIN
[2023-04-09] MEDS: BUDESONIDE RESPULE NEB 0.5 MG/2 ML AMP INHALATION ×2 (07:45→21:04)
[2023-04-09] MEDS: PANTOPRAZOLE SODIUM IV 40 MG VIAL IV PUSH (08:00)
[2023-04-09] MEDS: ENOXAPARIN 40 MG/0.4 ML SYRINGE SUB-Q (08:00)
[2023-04-09] MEDS: levETIRAcetam 500MG/NACL 100ML 500 MG/100 ML BAG 400 MG IVPB ×2 (08:00→20:36)
[2023-04-09] MEDS: MINERAL OIL/WHITE PETROLATUM OINTMENT 1 APPLIC EACH EYE (08:00)
--- NOTE | 2023-04-09 11:00 | WPDINTPN ---
Progress Note: A&P Assessment and Plan (1) Acute respiratory failure: Code(s): J96.00 - Acute respiratory failure, unspecified whether with hypoxia or hypercapnia Status: Acute Assessment and Plan: Acute respiratory failure secondary to altered mental status due to medication overdose -according the records patient was intubated for airway protection -chest x-ray on admission showed opacities bilateral lower lung zones R>L -possible aspiration pneumonia as there was emesis in the CPAP mask when patient was brought up to the ICU during the bedside RN -chest x-ray this morning: Bibasilar airspace opacities with slight improvement, consistent with atelectasis versus pneumonia. -currently on CMV mode of ventilation, peep of 8, 60% FiO2, wean FiO2 to maintain O2 sats greater than 92%. Peep will be decreased to 5, -patient has been started on Unasyn(04/07) for aspiration pneumonia -on Precedex infusion, place patient on SBT, and evaluate for extubation (2) Overdose: Code(s): T50.901A - Poisoning by unspecified drugs, medicaments and biological substances, accidental (unintentional), initial encounter Status: Acute Assessment and Plan: Patient was found unresponsive at home, when EMS arrived and place her on CPAP, which did not help within the put her on non-rebreather. EMS found empty bottles of amitriptyline 25 mg 30 tablets which were filled on 04/03/2023 and a bottle of trazodone 150 mg 30 tablets filled on 04/04/2023 with 6 pills remaining in the bottle. -unknown if the patient did take the medications are not but recently she was admitted to [facility] in February 2023 with similar complaints -will consider this as medication overdose and suicidal attempt since she has a recent history of it -patient had seizure-like activity this morning so was started on Keppra, both amitriptyline and trazodone toxicity can cause seizures -normal tremors or seizure-like activity since admission (3) Suicidal behavior: Code(s): R45.89 - Other symptoms and signs involving emotional state Status: Acute Assessment and Plan: Likely suicide behavior -will continue suicide precautions -bedside sitter -once she is extubated and medically stable will have care coordination and crisis management evaluate the patient for possible placement in a psychiatric facility (4) Rhabdomyolysis: Code(s): M62.82 - Rhabdomyolysis Status: Acute Assessment and Plan: Patient presented with elevated CK levels of >7000, adequately fluid-resuscitated, CK levels trending down -CK levels trending down nicely, will continue to monitor -off IV fluids (5) Altered mental status: Code(s): R41.82 - Altered mental status, unspecified Status: Acute Assessment and Plan: Altered mental status likely related to trazodone and amitriptyline overdose -intubated and sedated -once the medications are out of her system her mental status should improve -patient on Precedex infusion, more awake, alert, writing on paper (6) GERRI (acute kidney injury): Code(s): N17.9 - Acute kidney failure, unspecified Status: Acute Assessment and Plan: Acute kidney injury likely related to rhabdomyolysis, hypovolemia, decreased oral intake. Initial creatinine 2.3 on admission, -patient has been adequately fluid resuscitated -creatinine has normalized -continue to monitor renal function, electrolytes and urine output 04/06/2023: Renal ultrasound : Normal kidney size, no hydronephrosis (7) Aspiration pneumonitis: Code(s): J69.0 - Pneumonitis due to inhalation of food and vomit Status: Acute Assessment and Plan: According the bedside RN patient had emesis in the CPAP mask, -chest x-ray shows bilateral lower lung opacities which could be related to aspiration pneumonia/pneumonitis -patient started on Unasyn (04/07) Plan DVT prophylaxis: Lovenox Stress ulcer prophylaxis: Protonix Nutriti
--- NOTE | 2023-04-09 11:30 | PM.IMPN ---
Progress Note: A&P Assessment and Plan (1) Altered mental status: Code(s): R41.82 - Altered mental status, unspecified Status: Acute Assessment and Plan: Brain CT shows no acute findings and there is no findings on her workup to suggest active infection. Concerns are yet again for an overdose possibly on amitriptyline and trazodone. Poison Control has been contacted and we are following their recommendations. The patient is being monitored closely on telemetry; thus far her QTC has been normal. Started on keppra for seizure prophylaxis and unasyn for possible asp pna. Resolving, eval for possible extubation alter today per heating mechanic (2) Overdose: Code(s): T50.901A - Poisoning by unspecified drugs, medicaments and biological substances, accidental (unintentional), initial encounter Status: Acute Assessment and Plan: Possible overdose on amitriptyline and trazodone. Poison Control contacted. She will likely need placement on discharge as she was just hospitalized for similar reasons last month. Initiate suicide precautions. (3) Acute kidney injury: Code(s): N17.9 - Acute kidney failure, unspecified Status: Acute Assessment and Plan: Likely due to a combination of factors including dehydration, hypoperfusion from hypotension, and rhabdomyolysis. Edmonds catheter has been inserted and she is not retaining urine. Monitor strict I/O. Renal ultrasound 04/06 wnl. Avoid nephrotoxic agents. Resolved (4) Rhabdomyolysis: Code(s): M62.82 - Rhabdomyolysis Status: Acute Assessment and Plan: 04/08: resolving, CK 1030 04/09: down to 601 today (5) Acute respiratory failure: Code(s): J96.00 - Acute respiratory failure, unspecified whether with hypoxia or hypercapnia Status: Acute Assessment and Plan: The patient was intubated due to impending respiratory failure and inability to protect airway adequately. Urine drug screen was positive for opioids and she was given Narcan in the emergency department and then the ICU without any significant response. Vent settings and sedation per heating mechanic. Continue unasyn for possible aspiration started 04/07, previously given dose zosyn in ER see above, possible extubation attempt later today (6) Depression with anxiety: Code(s): F41.8 - Other specified anxiety disorders Status: Acute Assessment and Plan: Psychiatric medications currently on hold. (7) Chronic obstructive pulmonary disease: Code(s): J44.9 - Chronic obstructive pulmonary disease, unspecified Status: Chronic Assessment and Plan: Currently on scheduled bronchodilators. Plan DVT prophylaxis with lovenox GI prophylaxis with PPI Code status full code Subjective Date/time seen: 04/09/23 11:30 Interval history: 67-year-old female with past medical history of COPD, depression, anxiety, recent admission 03/09 for intentional overdose of tramadol, trazodone, methocarbamol, amitriptyline, cannabinoids, is presenting with a recurrence of the same. Patient was found at home, unresponsive, brought to the ER and intubated, empty pill bottles near patient, concerning for intentional overdose of amitriptyline and trazodone. No overnight events noted. No fevers. Planning for extubation trial later today. Review of Systems Review of Systems: ROS unobtainable: Yes unobtainable due to endotracheal tube Objective Data Vital Signs Vital Signs: Vital Signs - 24 hr 04/08/23 12:09 04/08/23 12:00 04/08/23 12:00 Temperature Pulse Rate 123 H 120 H Respiratory Rate 26 H Blood Pressure Pulse Oximetry Oxygen Delivery Fraction of Inspired Oxygen 40 04/08/23 12:00 04/08/23 12:00 04/08/23 14:41 Temperature 99.2 F Pulse Rate 120 H 120 H 101 H Respiratory Rate 21 H 21 H 29 H Blood Pressure 118/93 H Pulse Oximetry 92 92 Oxygen Delivery Mechanical Venti
[2023-04-09 11:44] LABS: Alveolar/Arterial O2 Gradient 65.1 mmHg; Base Excess ABG 9.5 mEq/l (+/-2.0); Device VENTILATOR; Fractional Inspired Oxygen 30 %; HCO3 ABG 34.2 mEq/l (22.0-26.0); Modified Allen's Test Pass; Oxygen Content ABG 14.6 %vol (16.0-22.0); Oxygen Saturation ABG 97.4 % (95.0-100.0); Oxyhemoglobin 96.1 % THb (90.0-100.0); PCO2 ABG 47.7 mmHg (35.0-45.0); PO2 ABG 92.8 mmHg (80.0-100.0); PO2 FiO2 Ratio Arterial Blood 3.09 %; Site Drawn LEFT RADIAL; Total Hemoglobin 10.7 g/dL (12.0-18.0); pH ABG 7.474 (7.350-7.450)
[2023-04-09 11:45] LABS: Arterial Blood Gas PEEP 5 cmH2O; Arterial Blood Gas Vent Mode SPONTANEOUS; Peak Inspiratory Pressure 8 cmH2O
[2023-04-09] MEDS: dexmedeTOMIDine 400 MCG/100 ML 400 MCG/100 ML BAG 18.38 MCG IV CONT (11:50)
--- NOTE | 2023-04-09 17:31 | PC.NURSE ---
Per son Sai Wynn ex sister in law can have information on patient phone number is [phone]
[2023-04-09] MEDS: dexmedeTOMIDine 400 MCG/100 ML 400 MCG/100 ML BAG 16.54 MCG IV CONT ×2 (18:12→23:44)
[2023-04-09] MEDS: ACETAMINOPHEN 325 MG TABLET 650 MG PO (21:27)
--- NOTE | 2023-04-09 21:32 | PC.NURSE ---
Patient having increased restlessness and agitation this evening, telling this RN I don't know how you expect me to live like this. Can't you just kill me? Suicidal ideation present. Patient educated that medical staff are here to help her get better. When asked if I could just go home to , RN educated patient about benefits of rehabilitation/inpatient psychiatric care to help patient get better. Patient agreeable to getting help as long as it is close to home and she will still be able to see her family. Will continue to monitor.
[2023-04-10] VITALS (28 sets, daily range): BP systolic 122–151; BP diastolic 67–93; PULSE 46–143; RESP 14–33; TEMP 36.6–37.1; O2SAT 90–100
[2023-04-10] MEDS: AMPICILLIN SULB 3 GM/NS 100 ML 3 GM/100 ML VIAL IVPB (05:20)
[2023-04-10] MEDS: CENTRAL LINE FLUSH 10 ML IV PUSH (05:21)
[2023-04-10 05:31] LABS: Basophils Percent Auto 0.5 % (0.2-1.2); Eosinophils Absolute Auto 0.4 K/mm3 (0-0.3); Eosinophils Percent Auto 5.4 % (0-4.4); Hematocrit 27.6 % (37.0-47.0); Hemoglobin 9.1 g/dL (12.0-15.0); Immature Granulocyte Absolute 0.02 K/mm3 (0.00-0.031); Immature Granulocyte Percent A 0.3 % (0-0.5); Lymphocytes Absolute Auto 1.37 K/mm3 (0.9-3.2); Lymphocytes Percent Auto 21.1 % (18.3-44.2); Mean Corpuscular Volume 93.9 fl (80-100); Mean Platelet Volume 9.9 fl (7.4-10.4); Monocytes Absolute Auto 0.5 K/mm3 (0.1-0.6); Monocytes Percent Auto 8.3 % (2.6-8.5); Neutrophils Absolute Auto 4.2 K/mm3 (1.3-6.7); Neutrophils Percent Auto 64.4 % (45.5-73.1); Platelet Count Result 135 k/mm3 (150-375); Red Blood Count 2.94 M/mm3 (4.2-5.4); Red Cell Distribution Width 13.5 % (11.5-14.5); White Blood Count 6.5 K/mm3 (4.5-10.0)
[2023-04-10] MEDS: dexmedeTOMIDine 400 MCG/100 ML 400 MCG/100 ML BAG 7.35 MCG IV CONT (05:55)
[2023-04-10 06:00] LABS: Alanine Aminotransferase 38 U/L (6-35); Albumin Level 3.4 g/dL (3.5-5.1); Alkaline Phosphatase 56 U/L (38-126); Anion Gap 1 mmol/L (8-16); Aspartate Amino Transferase 49 U/L (14-36); Bilirubin,Total 0.6 mg/dL (0.2-1.3); Blood Urea Nitrogen 10 mg/dL (7-17); Calcium 8.6 mg/dL (8.4-10.2); Carbon Dioxide 37 mmol/L (22-30); Chloride 99 mmol/L (98-107); Creatine Kinase 385 U/L (30-135); Estimated CRCL calculation 89 ml/min; Estimated Glomerular Filt Rate > 60; Glucose 100 mg/dL (65-110); Magnesium 1.7 mg/dL (1.6-2.3); Potassium 3.3 mmol/L (3.4-5.0); Sodium 137 mmol/L (137-145)
--- NOTE | 2023-04-10 08:08 | PM.IMPN ---
Progress Note: A&P Assessment and Plan (1) Depression with anxiety: Code(s): F41.8 - Other specified anxiety disorders Status: Acute Assessment and Plan: Severe, awaiting crisis eval for psych placement (2) Altered mental status: Code(s): R41.82 - Altered mental status, unspecified Status: Acute Assessment and Plan: Brain CT shows no acute findings and there is no findings on her workup to suggest active infection. Concerns are yet again for an overdose possibly on amitriptyline and trazodone. Poison Control has been contacted and we are following their recommendations. The patient is being monitored closely on telemetry; thus far her QTC has been normal. Started on keppra for seizure prophylaxis and unasyn for possible asp pna. Cont abx, ext 04/09 (3) Overdose: Code(s): T50.901A - Poisoning by unspecified drugs, medicaments and biological substances, accidental (unintentional), initial encounter Status: Acute Assessment and Plan: Possible overdose on amitriptyline and trazodone. Poison Control contacted. She will likely need placement on discharge as she was just hospitalized for similar reasons last month. Initiate suicide precautions. (4) Acute kidney injury: Code(s): N17.9 - Acute kidney failure, unspecified Status: Acute Assessment and Plan: Likely due to a combination of factors including dehydration, hypoperfusion from hypotension, and rhabdomyolysis. Edmonds catheter has been inserted and she is not retaining urine. Monitor strict I/O. Renal ultrasound 04/06 wnl. Avoid nephrotoxic agents. Resolved (5) Rhabdomyolysis: Code(s): M62.82 - Rhabdomyolysis Status: Acute Assessment and Plan: 04/08: resolving, CK 1030 04/09: down to 601 today (6) Acute respiratory failure: Code(s): J96.00 - Acute respiratory failure, unspecified whether with hypoxia or hypercapnia Status: Acute Assessment and Plan: The patient was intubated due to impending respiratory failure and inability to protect airway adequately. Urine drug screen was positive for opioids and she was given Narcan in the emergency department and then the ICU without any significant response. Vent settings and sedation per dispatch manager. Continue unasyn for possible aspiration started 04/07, previously given dose zosyn in ER see above (7) Chronic obstructive pulmonary disease: Code(s): J44.9 - Chronic obstructive pulmonary disease, unspecified Status: Chronic Assessment and Plan: Currently on scheduled bronchodilators. Plan DVT prophylaxis with lovenox GI prophylaxis with PPI Code status full code Subjective Date/time seen: 04/10/23 08:08 Interval history: 67-year-old female with past medical history of COPD, depression, anxiety, recent admission 03/09 for intentional overdose of tramadol, trazodone, methocarbamol, amitriptyline, cannabinoids, is presenting with a recurrence of the same. Patient was found at home, unresponsive, brought to the ER and intubated, empty pill bottles near patient, concerning for intentional overdose of amitriptyline and trazodone. Extubated and stable on room air at this time. She is quite suicidal and depressed. Complaining of severe LE neuropathy. Review of Systems Review of Systems: 12 point review of systems was assessed and was negative except as noted in the HPI Exam Narrative: General: No acute distress, alert and oriented per baseline HEENT: Atraumatic, normocephalic, mucous membranes moist CV: Regular rate and rhythm, S1, S2 Lungs: CTAB no wheeze Abdomen: Soft, nontender, nondistended Extremities: Normal to inspection Skin: No rashes noted, no lesions or wounds seen Psych: Depressed, limited judgment and insight Objective Data Vital Signs Vital Signs: Vital Signs - 24 hr 04/09/23 08:33 04/09/23 08:20 04/09/23 10:36 Temper
[2023-04-10] MEDS: KCL 40 MEQ/WATER 100 ML 100 ML 25 ML IVPB (08:19)
[2023-04-10] MEDS: MAGNESIUM SULF 2 GM/WATER 50ML 2 GM/50 ML BAG IVPB (08:19)
[2023-04-10] MEDS: ENOXAPARIN 40 MG/0.4 ML SYRINGE SUB-Q (08:20)
[2023-04-10] MEDS: PANTOPRAZOLE SODIUM IV 40 MG VIAL IV PUSH (08:20)
[2023-04-10] MEDS: levETIRAcetam 500MG/NACL 100ML 500 MG/100 ML BAG 400 MG IVPB (08:21)
--- NOTE | 2023-04-10 09:22 | WPDINTPN ---
Progress Note: A&P Assessment and Plan (1) Acute respiratory failure: Code(s): J96.00 - Acute respiratory failure, unspecified whether with hypoxia or hypercapnia Status: Acute Assessment and Plan: Acute respiratory failure secondary to altered mental status due to medication overdose -according the records patient was intubated for airway protection -chest x-ray on admission showed opacities bilateral lower lung zones R>L -possible aspiration pneumonia as there was emesis in the CPAP mask when patient was brought up to the ICU during the bedside RN 04/06: Intubated 04/09: Extubated Currently on room air with good O2 sats -Will have speech to evaluate for bedside swallow test -PT/OT has been consulted -continue Unasyn (04/07) for total of 5 days (2) Overdose: Code(s): T50.901A - Poisoning by unspecified drugs, medicaments and biological substances, accidental (unintentional), initial encounter Status: Acute Assessment and Plan: Patient was found unresponsive at home, when EMS arrived and place her on CPAP, which did not help within the put her on non-rebreather. EMS found empty bottles of amitriptyline 25 mg 30 tablets which were filled on 04/03/2023 and a bottle of trazodone 150 mg 30 tablets filled on 04/04/2023 with 6 pills remaining in the bottle. -unknown if the patient did take the medications are not but recently she was admitted to [facility] in February 2023 with similar complaints -will consider this as medication overdose and suicidal attempt since she has a recent history of it -will discontinue Keppra (3) Suicidal behavior: Code(s): R45.89 - Other symptoms and signs involving emotional state Status: Acute Assessment and Plan: Likely suicide behavior -will continue suicide precautions -bedside sitter -patient is medically stable for care coordination and crisis management evaluation, patient will require placement to a psychiatric facility (4) Rhabdomyolysis: Code(s): M62.82 - Rhabdomyolysis Status: Acute Assessment and Plan: RESOLVED Patient presented with elevated CK levels of >7000, adequately fluid-resuscitated, CK levels trending down -CK levels trending down nicely, will continue to monitor -off IV fluids (5) Altered mental status: Code(s): R41.82 - Altered mental status, unspecified Status: Acute Assessment and Plan: RESOLVED Altered mental status likely related to trazodone and amitriptyline overdose -intubated and sedated -once the medications are out of her system her mental status should improve -patient has been extubated, on room air, awake, alert, follows simple commands and answers to questions appropriately (6) GERRI (acute kidney injury): Code(s): N17.9 - Acute kidney failure, unspecified Status: Acute Assessment and Plan: RESOLVED Acute kidney injury likely related to rhabdomyolysis, hypovolemia, decreased oral intake. Initial creatinine 2.3 on admission, -patient has been adequately fluid resuscitated -creatinine has normalized -continue to monitor renal function, electrolytes and urine output 04/06/2023: Renal ultrasound : Normal kidney size, no hydronephrosis (7) Aspiration pneumonitis: Code(s): J69.0 - Pneumonitis due to inhalation of food and vomit Status: Acute Assessment and Plan: According the bedside RN patient had emesis in the CPAP mask, -chest x-ray shows bilateral lower lung opacities which could be related to aspiration pneumonia/pneumonitis -patient started on Unasyn (04/07) complete 5 days course on 04/11 Plan DVT prophylaxis: Lovenox Stress ulcer prophylaxis: Protonix Nutrition: Speech to evaluate for bedside swallow test -up in chair, PT/OT has been ordered Code Status: Full code Critical Care Time Spent: 32 minutes 04/09: Discussed with patient's son Davion, [id number] Janiya, updated them with patient's condition and plan o
[2023-04-10] MEDS: IPRATROPIUM BR 0.02% INH SOLN 0.5 MG/2.5 ML VIAL INHALATION ×3 (09:42→21:00)
[2023-04-10] MEDS: BUDESONIDE RESPULE NEB 0.5 MG/2 ML AMP INHALATION ×2 (09:42→21:01)
[2023-04-10] MEDS: LEVALBUTEROL NEB 1.25 MG/3 ML INHALATION ×3 (09:43→21:00)
[2023-04-10] MEDS: ACETAMINOPHEN 325 MG TABLET 650 MG PO ×2 (10:47→20:50)
--- NOTE | 2023-04-10 11:01 | PCOTNOTE ---
Attempted OT eval, but per RN, patient still has a femoral line and cannot be seen at this time. The patient is leaving for a procedure this AM and the femoral line will be pulled this afternoon and then the patient will have to rest for 1 hour before she is able to be seen by therapy. Will follow.
--- NOTE | 2023-04-10 12:33 | PCSTNOTE ---
Results of Modified Barium Swallow Study (MBSS) are within normal limits. Recommendation: no speech therapy is recommended. Diet texture recommendation is minced moist (level 5) (due to lack of dentition) and thin liquids. Swallowing precaution recommendations placed in chart. Thank you for the referral of this patient.
--- NOTE | 2023-04-10 13:21 | PCNFU ---
Nutrition Follow-Up Complete: Inadequate Oral Intake as related to mechanical vent as evidenced by NPO. Goal: Meet estimated nutritional needs Patient is progressing towards goal. We will continue current goal. Pt current nutrition is Regular. Nutrition recommendation: Last recorded weight is 67.9 kg. Bowel Motility:No BM reported. Labs Reviewed:Cr 0.5,K 3.3,Alb 3.4,Hct 27.6,Hgb 9.1 Meds Noted:Lovenox, Protonix Skin:Stage 1 Left Hip Additional Notes: Patient seen for nutrition follow up. Patient was extubated. MBS 04/10 recommending Minced and Moist, Level 5 diet. Diet order has been advancing. Will continue to monitor intake. Will continue to monitor in ICU rounds and reassessing every 3 days.
[2023-04-10] MEDS: AMANTADINE HCL 100 MG CAPSULE PO (18:29)
[2023-04-10] MEDS: PREGABALIN (*CRX) 75 MG CAPSULE 150 MG PO (18:29)
[2023-04-10] MEDS: PANTOPRAZOLE 40 MG TABLET PO (21:13)
[2023-04-11] VITALS (7 sets, daily range): BP systolic 135–148; BP diastolic 82–86; PULSE 92–112; RESP 18–28; TEMP 36.8–36.9; O2SAT 95–100
[2023-04-11] MEDS: LEVALBUTEROL NEB 1.25 MG/3 ML INHALATION ×3 (02:06→13:27)
[2023-04-11] MEDS: IPRATROPIUM BR 0.02% INH SOLN 0.5 MG/2.5 ML VIAL INHALATION ×3 (02:06→13:27)
[2023-04-11 04:34] LABS: Basophils Percent Auto 0.5 % (0.2-1.2); Eosinophils Absolute Auto 0.2 K/mm3 (0-0.3); Hematocrit 28.6 % (37.0-47.0); Hemoglobin 9.3 g/dL (12.0-15.0); Immature Granulocyte Absolute 0.05 K/mm3 (0.00-0.031); Immature Granulocyte Percent A 0.8 % (0-0.5); Lymphocytes Absolute Auto 1.45 K/mm3 (0.9-3.2); Lymphocytes Percent Auto 22.1 % (18.3-44.2); Mean Corpuscular HGB Conc 32.5 g/dl (32-36); Mean Corpuscular Hemoglobin 31.2 pg (26-34); Mean Platelet Volume 9.8 fl (7.4-10.4); Monocytes Absolute Auto 0.6 K/mm3 (0.1-0.6); Monocytes Percent Auto 9.1 % (2.6-8.5); Neutrophils Absolute Auto 4.2 K/mm3 (1.3-6.7); Neutrophils Percent Auto 64.5 % (45.5-73.1); Platelet Count Result 192 k/mm3 (150-375); Red Blood Count 2.98 M/mm3 (4.2-5.4); Red Cell Distribution Width 13.8 % (11.5-14.5); White Blood Count 6.6 K/mm3 (4.5-10.0)
[2023-04-11 04:51] LABS: Alanine Aminotransferase 43 U/L (6-35); Albumin Level 3.8 g/dL (3.5-5.1); Alkaline Phosphatase 58 U/L (38-126); Anion Gap 6 mmol/L (8-16); Aspartate Amino Transferase 53 U/L (14-36); Bilirubin,Total 0.6 mg/dL (0.2-1.3); Blood Urea Nitrogen 8 mg/dL (7-17); Calcium 8.8 mg/dL (8.4-10.2); Carbon Dioxide 28 mmol/L (22-30); Chloride 103 mmol/L (98-107); Creatine Kinase 462 U/L (30-135); Estimated CRCL calculation 75 ml/min; Estimated Glomerular Filt Rate > 60; Glucose 90 mg/dL (65-110); Magnesium 1.9 mg/dL (1.6-2.3); Phosphorus 3.4 mg/dL (2.5-4.5); Potassium 3.1 mmol/L (3.4-5.0); Sodium 137 mmol/L (137-145)
[2023-04-11] MEDS: BUDESONIDE RESPULE NEB 0.5 MG/2 ML AMP INHALATION (07:26)
[2023-04-11] MEDS: ACETAMINOPHEN 325 MG TABLET 650 MG PO (07:57)
[2023-04-11] MEDS: PREGABALIN (*CRX) 75 MG CAPSULE 150 MG PO (08:00)
[2023-04-11] MEDS: ENOXAPARIN 40 MG/0.4 ML SYRINGE SUB-Q (08:00)
[2023-04-11] MEDS: AMANTADINE HCL 100 MG CAPSULE PO (08:00)
[2023-04-11] MEDS: PANTOPRAZOLE 40 MG TABLET PO (08:00)
--- NOTE | 2023-04-11 09:28 | ECG_ITS ---
Measurements Intervals [place] Rate: 106 P: 64 PA: 162 QRS: 73 QRSD: 94 T: 46 QT: 310 QTc: 412 Interpretive Statements SINUS TACHYCARDIA NONSPECIFIC T-WAVE ABNORMALITY- INF/LAT LEADS BASELINE ARTIFACT- I, II, III, AVR, AVL, AVF, V1-V2 ABNORMAL ECG COMPARED TO ECG 04/07/2023 15:19:17 SINUS TACHYCARDIA NOW PRESENT Electronically Signed On 04-11-2023 11:25:45 CDT by Abraham Whitaker D.O.
[2023-04-11] MEDS: oxyCODONE/ACETAMINOPHEN (*CRX) 5-325 MG TABLET 1 TABLET PO (12:00)
--- NOTE | 2023-04-11 13:13 | PM.IMPN ---
Progress Note: A&P Assessment and Plan (1) Depression with anxiety: Code(s): F41.8 - Other specified anxiety disorders Status: Acute Assessment and Plan: Severe, awaiting crisis eval for psych placement Plan for d/c to facility today (2) Altered mental status: Code(s): R41.82 - Altered mental status, unspecified Status: Acute Assessment and Plan: Brain CT shows no acute findings and there is no findings on her workup to suggest active infection. Concerns are yet again for an overdose possibly on amitriptyline and trazodone. Poison Control has been contacted and we are following their recommendations. The patient is being monitored closely on telemetry; thus far her QTC has been normal. Started on keppra for seizure prophylaxis and unasyn for possible asp pna. Cont abx, ext 04/09 (3) Overdose: Code(s): T50.901A - Poisoning by unspecified drugs, medicaments and biological substances, accidental (unintentional), initial encounter Status: Acute Assessment and Plan: Possible overdose on amitriptyline and trazodone. Poison Control contacted. She will likely need placement on discharge as she was just hospitalized for similar reasons last month. Initiate suicide precautions. (4) Acute kidney injury: Code(s): N17.9 - Acute kidney failure, unspecified Status: Acute Assessment and Plan: Likely due to a combination of factors including dehydration, hypoperfusion from hypotension, and rhabdomyolysis. Edmonds catheter has been inserted and she is not retaining urine. Monitor strict I/O. Renal ultrasound 04/06 wnl. Avoid nephrotoxic agents. Resolved (5) Rhabdomyolysis: Code(s): M62.82 - Rhabdomyolysis Status: Acute Assessment and Plan: 04/08: resolving, CK 1030 04/09: down to 601 today (6) Acute respiratory failure: Code(s): J96.00 - Acute respiratory failure, unspecified whether with hypoxia or hypercapnia Status: Acute Assessment and Plan: The patient was intubated due to impending respiratory failure and inability to protect airway adequately. Urine drug screen was positive for opioids and she was given Narcan in the emergency department and then the ICU without any significant response. Vent settings and sedation per business test analyst. Continue unasyn for possible aspiration started 04/07, previously given dose zosyn in ER see above (7) Chronic obstructive pulmonary disease: Code(s): J44.9 - Chronic obstructive pulmonary disease, unspecified Status: Chronic Assessment and Plan: Currently on scheduled bronchodilators. Plan DVT prophylaxis with lovenox GI prophylaxis with PPI Code status full code Subjective Date/time seen: 04/11/23 13:13 Interval history: 67-year-old female with past medical history of COPD, depression, anxiety, recent admission 03/09 for intentional overdose of tramadol, trazodone, methocarbamol, amitriptyline, cannabinoids, is presenting with a recurrence of the same. Patient was found at home, unresponsive, brought to the ER and intubated, empty pill bottles near patient, concerning for intentional overdose of amitriptyline and trazodone. No overnight events noted. No chest pain or shortness of breath. No nausea, vomiting or diarrhea. No fevers or chills. Still quite suicidal, c/o significant B/L LE pain, in her entire foot and radiating up into her B/L calves in a stocking like manner. She describes it as a burning sensation, some numbness and tingling, no weakness or warmth. Review of Systems Review of Systems: 12 point review of systems was assessed and was negative except as noted in the HPI Exam Narrative: General: No acute distress, alert and oriented per baseline HEENT: Atraumatic, normocephalic, mucous membranes moist CV: Regular rate and rhythm, S1, S2 Lungs: CTAB no wheeze Abdomen: Soft, nontender, nondistended Extre
--- NOTE | 2023-04-11 14:00 | PC.NURSE ---
Spoke with Judy MEDRANO at the [facility] at 1320. Spoke with pt son at 1340 to update on the transfer.
--- NOTE | 2023-04-19 08:34 | PM.DS ---
DS: Admitting Diagnosis Discharge Date 04/11/23 Admitting Diagnosis Altered mental status DS: Discharge Diagnosis Discharge Diagnosis (1) Depression with anxiety: Code(s): F41.8 - Other specified anxiety disorders Status: Acute Assessment and Plan: Severe, awaiting crisis eval for psych placement Plan for d/c to facility today (2) Altered mental status: Code(s): R41.82 - Altered mental status, unspecified Status: Acute Assessment and Plan: Brain CT shows no acute findings and there is no findings on her workup to suggest active infection. Concerns are yet again for an overdose possibly on amitriptyline and trazodone. Poison Control has been contacted and we are following their recommendations. The patient is being monitored closely on telemetry; thus far her QTC has been normal. Started on keppra for seizure prophylaxis and unasyn for possible asp pna. Cont abx, ext 04/09 (3) Overdose: Code(s): T50.901A - Poisoning by unspecified drugs, medicaments and biological substances, accidental (unintentional), initial encounter Status: Acute Assessment and Plan: Possible overdose on amitriptyline and trazodone. Poison Control contacted. She will likely need placement on discharge as she was just hospitalized for similar reasons last month. Initiate suicide precautions. (4) Acute kidney injury: Code(s): N17.9 - Acute kidney failure, unspecified Status: Acute Assessment and Plan: Likely due to a combination of factors including dehydration, hypoperfusion from hypotension, and rhabdomyolysis. Edmonds catheter has been inserted and she is not retaining urine. Monitor strict I/O. Renal ultrasound 04/06 wnl. Avoid nephrotoxic agents. Resolved (5) Rhabdomyolysis: Code(s): M62.82 - Rhabdomyolysis Status: Acute Assessment and Plan: 04/08: resolving, CK 1030 04/09: down to 601 today (6) Acute respiratory failure: Code(s): J96.00 - Acute respiratory failure, unspecified whether with hypoxia or hypercapnia Status: Acute Assessment and Plan: The patient was intubated due to impending respiratory failure and inability to protect airway adequately. Urine drug screen was positive for opioids and she was given Narcan in the emergency department and then the ICU without any significant response. Vent settings and sedation per lifestyle consultant. Continue unasyn for possible aspiration started 04/07, previously given dose zosyn in ER see above (7) Chronic obstructive pulmonary disease: Code(s): J44.9 - Chronic obstructive pulmonary disease, unspecified Status: Chronic Assessment and Plan: Currently on scheduled bronchodilators. Plan DVT prophylaxis with lovenox GI prophylaxis with PPI Code status full code DS: Summary Hospital Course Hospital Course: 67-year-old female with past medical history of COPD, depression, anxiety, recent admission 03/09 for intentional overdose of tramadol, trazodone, methocarbamol, amitriptyline, cannabinoids, is presenting with a recurrence of the same.? Patient was found at home, unresponsive, brought to the ER and intubated, empty pill bottles near patient, concerning for intentional overdose of amitriptyline and trazodone. Brain CT shows no acute findings and there is no findings on her workup to suggest active infection. Concerns are yet again for an overdose possibly on amitriptyline and trazodone. Poison Control has been contacted and we are following their recommendations. The patient is being monitored closely on telemetry; thus far her QTC has been normal. Started on keppra for seizure prophylaxis and unasyn for possible asp pna. Cont abx, ext 04/09. She completed 6 days of antibiotics and no real sign of infection was noted. She was also noted to have an acute kidney injury that resolved with IV fluids. Rhabdomyolysis was mild at presentation resolved
--- NOTE | 2023-04-19 08:37 | TS_ITS ---
DS: Admitting Diagnosis Discharge Date 04/11/23 Admitting Diagnosis Altered mental status DS: Discharge Diagnosis Discharge Diagnosis (1) Depression with anxiety: Code(s): F41.8 - Other specified anxiety disorders Status: Acute Assessment and Plan: Severe, awaiting crisis eval for psych placement Plan for d/c to facility today (2) Altered mental status: Code(s): R41.82 - Altered mental status, unspecified Status: Acute Assessment and Plan: Brain CT shows no acute findings and there is no findings on her workup to suggest active infection. Concerns are yet again for an overdose possibly on amitriptyline and trazodone. Poison Control has been contacted and we are following their recommendations. The patient is being monitored closely on telemetry; thus far her QTC has been normal. Started on keppra for seizure prophylaxis and unasyn for possible asp pna. Cont abx, ext 04/09 (3) Overdose: Code(s): T50.901A - Poisoning by unspecified drugs, medicaments and biological substances, accidental (unintentional), initial encounter Status: Acute Assessment and Plan: Possible overdose on amitriptyline and trazodone. Poison Control contacted. She will likely need placement on discharge as she was just hospitalized for similar reasons last month. Initiate suicide precautions. (4) Acute kidney injury: Code(s): N17.9 - Acute kidney failure, unspecified Status: Acute Assessment and Plan: Likely due to a combination of factors including dehydration, hypoperfusion from hypotension, and rhabdomyolysis. Edmonds catheter has been inserted and she is not retaining urine. Monitor strict I/O. Renal ultrasound 04/06 wnl. Avoid nephrotoxic agents. Resolved (5) Rhabdomyolysis: Code(s): M62.82 - Rhabdomyolysis Status: Acute Assessment and Plan: 04/08: resolving, CK 1030 04/09: down to 601 today (6) Acute respiratory failure: Code(s): J96.00 - Acute respiratory failure, unspecified whether with hypoxia or hypercapnia Status: Acute Assessment and Plan: The patient was intubated due to impending respiratory failure and inability to protect airway adequately. Urine drug screen was positive for opioids and she was given Narcan in the emergency department and then the ICU without any significant response. Vent settings and sedation per lunch cook. Continue unasyn for possible aspiration started 04/07, previously given dose zosyn in ER see above (7) Chronic obstructive pulmonary disease: Code(s): J44.9 - Chronic obstructive pulmonary disease, unspecified Status: Chronic Assessment and Plan: Currently on scheduled bronchodilators. Plan DVT prophylaxis with lovenox GI prophylaxis with PPI Code status full code DS: Summary Hospital Course Hospital Course: 67-year-old female with past medical history of COPD, depression, anxiety, recent admission 03/09 for intentional overdose of tramadol, trazodone, methocarbamol, amitriptyline, cannabinoids, is presenting with a recurrence of the same.? Patient was found at home, unresponsive, brought to the ER and intubated, empty pill bottles near patient, concerning for intentional overdose of amitriptyline and trazodone. Brain CT shows no acute findings and there is no findings on her workup to suggest active infection. Concerns are yet again for an overdose possibly on amitriptyline and trazodone. Poison Control has been contacted and we are following their recommendations. The patient is being monitored closely on telemetry; thus far her QTC has been normal. Started on keppra for seizure prophylaxis and unasyn for possible asp pna. Cont
== END 2023-04-11 14:25 | DRG 947 ==
LOC: ANHED 12:06 → ANHICU 15:37
PROVIDERS: Internal Medicine; Physician Assistant; Admitting Provider Internal Medicine; Emergency Provider Emergency Medicine; PCP Physician Assistant; Visit Provider Student in an Organized Health Care Education/Training Program
DX: R41.82 Altered mental status, unspecified (principal); J96.00 Acute respiratory failure, unspecified whether with hypoxia or hypercapnia; N17.9 Acute kidney failure, unspecified; M62.82 Rhabdomyolysis; T43.012A Poisoning by tricyclic antidepressants, intentional self-harm, initial encounter; T43.212A Poisoning by selective serotonin and norepinephrine reuptake inhibitors, intentional self-harm, initial encounter; D64.9 Anemia, unspecified; E78.5 Hyperlipidemia, unspecified; E86.0 Dehydration; F41.8 Other specified anxiety disorders; F17.210 Nicotine dependence, cigarettes, uncomplicated; I10 Essential (primary) hypertension; J43.9 Emphysema, unspecified; K21.9 Gastro-esophageal reflux disease without esophagitis; R56.9 Unspecified convulsions; Z86.73 Personal history of transient ischemic attack (TIA), and cerebral infarction without residual deficits; Z85.43 Personal history of malignant neoplasm of ovary; Z85.828 Personal history of other malignant neoplasm of skin; Z90.49 Acquired absence of other specified parts of digestive tract; Z90.710 Acquired absence of both cervix and uterus
CPT/HCPCS: 31500; 36415; 36600; 51702; 70450; 71045; 76775; 80048; 80053; 80307; 81001; 82375; 82550; 82805; 82948; 83050; 83605; 83735; 84100; 84439; 84443; 85025; 85055; 85610; 85730; 87070; 87086; 87205; 92610; 92611; 93005; 93306; 94002; 94003; 94640; 96361; 96374; 97161; 97165; 99285; A9270; C1751; C9113; G0378; J0295; J1650; J1940; J1953; J2250; J2310; J2543; J3010; J3475; J3480; J7030; J7070; J7120

== ENCOUNTER 2023-11-10 09:54 | Outpatient (CLI) | payer MEDICARE, MEDICAID, SELFPAY ==
--- NOTE | ~2023-11-10 | MM_ITS ---
EXAMINATION: MM screening theresa BI w lupillo HISTORY: Screening TECHNIQUE: Craniocaudal and mediolateral oblique 3-D tomosynthesis images were obtained and synthetic 2-D images were generated. CAD analysis was submitted and interpreted. COMPARISON: Comparison to multiple prior studies sequentially, with oldest reviewed study dated 07/13. BREAST PARENCHYMAL COMPOSITION: Breast composed of scattered areas of fibroglandular density FINDINGS: There is increasing number of clustered indeterminate calcifications upper outer quadrant o f the left breast, middle third. The right breast is stable without evidence for malignancy. IMPRESSION: 1. Developing cluster of indeterminate calcifications upper outer quadrant of the left breast. 2. Magnification views are recommended. BI-RADS Category 0: Incomplete: Needs additional imaging evaluation. Reviewed, dictated and finalized at location A. CULTURAL EDUCATION INSTRUCTOR IMPRESSION: 1. Developing cluster of indeterminate calcifications upper outer quadrant of t he left breast. 2. Magnification views are recommended. BI-RADS Category 0: Incomplete: Needs additional imaging evaluation.
== END 2023-11-10 09:55 | disposition home or self-care (01) ==
LOC: ANHIMG 09:57
PROVIDERS: PCP Physician Assistant; Visit Provider Physician Assistant
DX: Z12.31 Encounter for screening mammogram for malignant neoplasm of breast (principal); R92.8 Other abnormal and inconclusive findings on diagnostic imaging of breast
CPT/HCPCS: 77063; 77067

== ENCOUNTER 2023-11-25 12:06 | Emergency (ER) | payer MEDICARE, MEDICAID, SELFPAY ==
[2023-11-25 12:43] VITALS: BP 144/85; PULSE 109; RESP 18; TEMP 36.6; O2SAT 97
--- NOTE | 2023-11-25 13:44 | ED.URI ---
HPI - URI/Sore Throat General Chief Complaint: Upper Respiratory Infection Stated Complaint: Sinus Time Seen by Provider: 11/25/23 13:35 Source: patient and RN notes reviewed Mode of arrival: ambulatory Limitations: no limitations History of Present Illness HPI Narrative: 68-year-old female presents with concern for cough, sinus congestion. Reports history of COPD. She reports she has been on amoxicillin for an ear infection but does not helping her cough. She reports she has been using her inhalers at home without much relief MD elicited complaint: cough Related Data Home Medications Medication Instructions Recorded Confirmed omeprazole 20 mg capsule,delayed 20 mg PO DAILY 06/10/21 04/06/23 release rosuvastatin 5 mg tablet 5 mg PO DAILY 06/10/21 04/06/23 trazodone 50 mg tablet 100 mg PO HS 06/10/21 04/06/23 amantadine HCl 100 mg tablet 100 mg PO BID 04/10/23 04/10/23 amitriptyline 25 mg tablet 25 mg PO HS 04/10/23 04/10/23 duloxetine 30 mg capsule,delayed 30 mg PO BID 04/10/23 04/10/23 release gabapentin 300 mg capsule 300 mg PO TID 04/10/23 04/10/23 hydroxyzine HCl 25 mg tablet 25 mg PO TID 04/10/23 04/10/23 pregabalin 150 mg capsule 150 mg PO BID 04/10/23 04/10/23 Allergies Allergy/AdvReac Type Severity Reaction Status Date / Time ciprofloxacin Allergy Unknown Rash Verified 04/25/22 14:36 Review of Systems Review of Systems: CONSTITUTIONAL: Denies malaise, chills, sweats, or fever. EYES: Denies visual changes, redness, or discharge. ENT: Reports rhinorrhea, congestion CARDIOVASCULAR: Denies chest pain, palpitations, or edema. RESPIRATORY: Reports cough. Denies dyspnea. GASTROINTESTINAL: Denies abdominal pain, nausea, vomiting, diarrhea SKIN: Denies rash or itching. MUSCULOSKELETAL: Denies myalgia. NEUROLOGIC: Denies headache. All systems reviewed & are unremarkable except as noted in HPI and below [facility] Past Medical History Medical History Anemia Anxiety Arthritis Asthma Chronic obstructive pulmonary disease Degenerative disc disease Depression Emphysema of lung Gastroesophageal reflux disease Hepatitis C Treated in 2007. Hypertension Ovarian cancer Peripheral neuropathy due to chemotherapy Skin cancer Tobacco dependence Surgical History Surgical History History of appendectomy History of hysterectomy History of laminectomy History of lumpectomy of left breast History of open reduction and internal fixation (ORIF) procedure Ankle fracture. History of repair of right rotator cuff History of tonsillectomy Family History Family History Mother Family history of malignant neoplasm Family history of heart disease in male family member before age 55 Sibling Family history of malignant neoplasm of brain Father Family history of emphysema Social History Social History Social History: Surrogate decision maker: Sai Martinez, son. Code status: Full code. Smoking packs per day: 1 Smoking cigarettes per day: 20.0 Years smoked: 55 Smoking pack-years: 55.00 Smoking status: Unknown if ever smoked Second hand tobacco smoke exposure: No Additional smoking assessment comments: Down to 3 to 5 cigarettes a day. Alcohol intake: former Alcohol use details: Drinks socially and in moderation. Substance use: unknown Substance use type: marijuana and painkillers Other substance usage details: Uses a few times a week. Living arrangements: alone Additional living arrangements comments: The patient lives in a senior apartment in [place]. Additional occupation/education comments: Retired. Spiritual care concerns: No Comments At time of signature, agree with nursing past medical, surgical, social and family history. There is no releva
== END 2023-11-25 13:55 | disposition home or self-care (01) ==
PROVIDERS: Emergency Provider Nurse Practitioner; PCP Physician Assistant
DX: J44.1 Chronic obstructive pulmonary disease with (acute) exacerbation (principal); Z20.822 Contact with and (suspected) exposure to COVID-19; K21.9 Gastro-esophageal reflux disease without esophagitis; I10 Essential (primary) hypertension; Z85.43 Personal history of malignant neoplasm of ovary; Z85.828 Personal history of other malignant neoplasm of skin; M19.90 Unspecified osteoarthritis, unspecified site; Z90.12 Acquired absence of left breast and nipple; F41.9 Anxiety disorder, unspecified; F32.A Depression, unspecified
CPT/HCPCS: 87426; 87804; 99213; C9803; G0463

== ENCOUNTER 2023-11-28 09:41 | Outpatient (CLI) | payer MEDICARE, MEDICAID, SELFPAY ==
--- NOTE | ~2023-11-28 | XR_ITS ---
Clinical Indication: Cough, COPD PA and lateral views of the chest: Comparison: 04/09/2023 Findings: The lungs are clear, without evidence of focal consolidation or pleural effusion. Cardiome diastinal silhouette is within normal limits. Bones and soft tissues are unremarkable. Impression: Normal chest. Reviewed, dictated and finalized at [facility]. SELOR/ART THERAPIST Impression: Normal chest.
== END 2023-11-28 09:42 | disposition home or self-care (01) ==
PROVIDERS: PCP Physician Assistant; Visit Provider Physician Assistant
DX: J43.9 Emphysema, unspecified (principal); R05.9 Cough, unspecified; R06.02 Shortness of breath
CPT/HCPCS: 71046

== ENCOUNTER 2023-12-08 10:25 | Outpatient (CLI) | payer MEDICARE, MEDICAID, SELFPAY ==
--- NOTE | 2023-12-11 09:27 | WPDPFTINT ---
PFT Procedure Performed PFT Procedure Performed Spirometry with Pre/Post Bronchodilator Plethysmography (Lung Vol) Diffusing Cap (DLCO) Flow Vol Loop PFT Interpretation Lung volumes were measured with the body plethysmography method. Lung volumes are unremarkable. Spirometry showed diminished expiratory flow rates and a diminished FEV1 to FVC ratio 55%, indicative of obstructive airway disease. Following administration of a bronchodilator there was no significant increase in expiratory flow rates. Lung diffusion capacity is moderately reduced at 49% predicted. The flow volume loop is consistent with obstructive airway disease. Impression: Mild obstructive airway disease with no response to bronchodilators on this testing. Moderate reduction in lung diffusion capacity.
== END 2023-12-08 10:26 | disposition home or self-care (01) ==
PROVIDERS: PCP Physician Assistant; Visit Provider Physician Assistant
DX: J44.9 Chronic obstructive pulmonary disease, unspecified (principal)
CPT/HCPCS: 94060; 94726; 94729

== ENCOUNTER 2023-12-12 09:59 | Outpatient (CLI) | payer MEDICARE, MEDICAID, SELFPAY ==
--- NOTE | ~2023-12-12 | MM_ITS ---
EXAMINATION: MM diagnostic mammo unilat LT HISTORY: Left breast calcifications on screening mammogram TECHNIQUE: Magnification views of the left breast were performed. CAD analysis was submitted and inte rpreted. COMPARISON: 11/10/2023, 03/05/2021, 08/02/2017 BREAST PARENCHYMAL COMPOSITION: There are scattered areas of fibroglandular density. FINDINGS: There are grouped coarse heterogeneous calcifications in the middle third of the upper oute r quadrant of the breast at the 1:00 location, 7 cm from the nipple. No associated mass or architectu ral distortion are identified. IMPRESSION: 1. Indeterminate left breast calcifications. 2. Stereotactic left breast biopsy is recommended. BI-RADS category 4, suspicious findings. Reviewed, dictated and finalized at location A. S REPRESENTATIVE TRAINEE
== END 2023-12-12 10:00 | disposition home or self-care (01) ==
PROVIDERS: PCP Physician Assistant; Visit Provider Physician Assistant
DX: R92.8 Other abnormal and inconclusive findings on diagnostic imaging of breast (principal)
CPT/HCPCS: 77065

== ENCOUNTER 2023-12-20 09:42 | Outpatient (CLI) | payer MEDICARE, MEDICAID, SELFPAY ==
--- NOTE | ~2023-12-20 | DEXA_ITS ---
Bone Density Report Name: NORMA YOUNGBLOOD Age: 68 Sex: Female Ethnicity: White Date of : 1955 Indication: postmenopausal; screening for osteoporosis; height loss; cancer; asthma or emphysema; hysterectomy; Referring Provider: CESAR, ARTURO Fields Study: Bone densitometry was performed. Exam Date: December 20, 2023 Accession number: [id number] Bone Density: Region BMD T-score Z-score Classification AP Spine(L1-L4) 1.055 0.1 2.0 Normal Femoral Neck (Left) 0.725 -1.1 0.5 Osteopenia Total Hip (Left) 0.750 -1.6 -0.2 Osteopenia Femoral Neck (Right) 0.688 -1.4 0.2 Osteopenia Total Hip (Right) 0.717 -1.8 -0.5 Osteopenia Total Hip Mean 0.734 -1.7 -0.4 Osteopenia World Health Organization criteria for BMD impression classify patients as: Normal (T-score at or above -1.0), Osteopenia (T-score between -1.0 and -2.5), or Osteoporosis (T-score at or below -2.5). 10-year Fracture Risk(1): Major Osteoporotic Fracture 9.4% Hip Fracture 1.8% Reported Risk Factors: [place] (), Neck BMD=0.688, BMI=27.6, smoking (1) FRAX(R) Version 3.08. Fracture probability calculated for an untreated patient. Fracture probability may be lower if the patient has received treatment. Clinical Information Provided by Patient: Smokes Has the following medical conditions: Asthma or Emphysema, Cancer, Hysterectomy Patient maximum height was 66 Menopause Age: 46 Drinks caffeinated beverages Onset of menses at age 10 Number of children 1 Impression: The patient has low bone mass, based on the Right Total Hip T-score. The patient has an estimated ten-year risk of hip fracture of 1.8% and an estimated ten-year risk of major fracture of 9.4%, based on the WHO FRAX algorithm. The patient has risk factors, including: smoking. Discussion: BONE DENSITY IS LOW AT ONE OR MORE SKELETAL SITES. This patient's lowest T-score is low at one or more skeletal sites. It meets the World Health Organization's (WHO) criteria for ?low bone mass? (T-score between -1.0 and -2.5). The patient's 10-year risk of fracture as calculated by FRAX is less than the threshold where pharmacological therapy is recommended by the National Osteoporosis Foundation (NOF). However, all treatment decisions require clinical judgment and consideration of individual patient factors, including patient preferences, comorbidities, previous drug use, risk factors not captured in the FRAX model (e.g., frailty, falls, vitamin D deficiency, increased bone turnover, interval significant decline in bone density) and possible under or overestimation of fracture risk by FRAX. The patient should follow a healthful lifestyle (good nutrition with adequate calcium and vitamin D, and appropriate weight-bearing exercise). Follow-Up: Consider repeating this study
== END 2023-12-20 09:43 | disposition home or self-care (01) ==
LOC: ANHIMG 09:50
PROVIDERS: PCP Physician Assistant; Visit Provider Physician Assistant
DX: M85.89 Other specified disorders of bone density and structure, multiple sites (principal)
CPT/HCPCS: 77080

== ENCOUNTER 2024-01-05 09:22 | Emergency (ER) | payer MEDICARE, MEDICAID, SELFPAY ==
--- NOTE | ~2024-01-05 | XR_ITS ---
Clinical Indication: Shortness of breath PA and lateral views of the chest: Comparison: 11/28/2023 Findings: Suspected focal hazy opacity at the left lung base on frontal projection. Right lung clear. Cardiomediastinal silhouette is within normal limits. Bones and soft tissues are unremarkable. Impression: Suspected focal hazy opacity left lung base. Focal pneumonia is a consideration. Short-term follow-up exam recommended to reassess. CT could be considered as indicated. Reviewed, dictated and finalized at location . ENT FINANCIAL REPRESENTATIVE Impression: Suspected focal hazy opacity left lung base. Focal pneumonia is a consideration . Short-term follow-up exam recommended to reassess. CT could be considered as indicated.
[2024-01-05 09:31] VITALS: BP 154/74; PULSE 99; RESP 20; TEMP 36.3; O2SAT 99
--- NOTE | 2024-01-05 09:56 | ED.SOB ---
HPI - SOB/Dyspnea General Chief Complaint: Upper Respiratory Infection Stated Complaint: COPD Time Seen by Provider: 01/05/24 09:30 Source: patient Mode of arrival: ambulatory Limitations: no limitations History of Present Illness HPI Narrative: Myriam is a 68-year-old female patient presenting to the clinic today with complaints shortness of breath since Monday/Monday. She reports she tried contacting her primary care's office on Monday to get some steroids and they stated that she needed to be seen by the PCP but she cannot get in until next week. States that she is becoming more more increasingly shortness of breath. Denies any chest pain. Does have a nonproductive cough with chest congestion. History of asthma, COPD, emphysema. Initial SpO2 ranging from 97-100% on room air. Patient is able to speak in full sentences without having to stop and take breaths. No obvious increased work to breathe at this time. She denies any fever, chills, body aches. Denies any URI symptoms. Related Data Home Medications Medication Instructions Recorded Confirmed omeprazole 20 mg capsule,delayed 20 mg PO DAILY 06/10/21 01/05/24 release rosuvastatin 5 mg tablet 5 mg PO DAILY 06/10/21 01/05/24 trazodone 50 mg tablet 100 mg PO HS 06/10/21 01/05/24 amantadine HCl 100 mg tablet 100 mg PO BID 04/10/23 01/05/24 amitriptyline 25 mg tablet 25 mg PO HS 04/10/23 01/05/24 duloxetine 30 mg capsule,delayed 30 mg PO BID 04/10/23 01/05/24 release gabapentin 300 mg capsule 300 mg PO TID 04/10/23 01/05/24 hydroxyzine HCl 25 mg tablet 25 mg PO TID 04/10/23 01/05/24 pregabalin 150 mg capsule 150 mg PO BID 04/10/23 01/05/24 Allergies Allergy/AdvReac Type Severity Reaction Status Date / Time ciprofloxacin Allergy Unknown Rash Verified 01/05/24 09:35 Review of Systems Review of Systems: Pertinent positives per HPI. Patient denies any fever, chills, rash, headache, visual changes, dizziness,runny nose, sore throat, chest pain, palpitations, nausea, vomiting, diarrhea, constipation, abdominal pain, or any urinary issues. [facility] Past Medical History Medical History Anemia Anxiety Arthritis Asthma Chronic obstructive pulmonary disease Degenerative disc disease Depression Emphysema of lung Gastroesophageal reflux disease Hepatitis C Treated in 2007. Hypertension Ovarian cancer Peripheral neuropathy due to chemotherapy Skin cancer Tobacco dependence Surgical History Surgical History History of appendectomy History of hysterectomy History of laminectomy History of lumpectomy of left breast History of open reduction and internal fixation (ORIF) procedure Ankle fracture. History of repair of right rotator cuff History of tonsillectomy Family History Family History Mother Family history of malignant neoplasm Family history of heart disease in male family member before age 55 Sibling Family history of malignant neoplasm of brain Father Family history of emphysema Social History Social History Social History: Surrogate decision maker: Sai Martinez, son. Code status: Full code. Smoking packs per day: 1 Smoking cigarettes per day: 20.0 Years smoked: 55 Smoking pack-years: 55.00 Smoking status: Unknown if ever smoked Second hand tobacco smoke exposure: No Additional smoking assessment comments: Down to 3 to 5 cigarettes a day. Alcohol intake: former Alcohol use details: Drinks socially and in moderation. Substance use: unknown Substance use type: marijuana and painkillers Other substance usage details: Uses a few times a week. Living arrangements: alone Additional living arrangements comments: The patient lives in a senior apartment in [place]. Additional occupation
== END 2024-01-05 10:05 | disposition home or self-care (01) ==
PROVIDERS: Emergency Provider Nurse Practitioner Family; PCP Physician Assistant
DX: J18.1 Lobar pneumonia, unspecified organism (principal); J44.1 Chronic obstructive pulmonary disease with (acute) exacerbation; F17.210 Nicotine dependence, cigarettes, uncomplicated; K21.9 Gastro-esophageal reflux disease without esophagitis; I10 Essential (primary) hypertension; M19.90 Unspecified osteoarthritis, unspecified site; F41.9 Anxiety disorder, unspecified; F32.A Depression, unspecified; Z85.43 Personal history of malignant neoplasm of ovary; Z85.828 Personal history of other malignant neoplasm of skin; G62.0 Drug-induced polyneuropathy; T45.1X5A Adverse effect of antineoplastic and immunosuppressive drugs, initial encounter
CPT/HCPCS: 71046; 99213; G0463

== ENCOUNTER 2024-01-26 10:31 | Outpatient (CLI) | payer MEDICARE, MEDICAID, SELFPAY ==
--- NOTE | ~2024-01-26 | CT_ITS ---
CT Scan of the Chest without Contrast: Clinical Indication: Lung cancer screening, smoking history Technique: Contiguous sections were acquired throughout the chest without intravenous contrast. Dose reduction technique was used on this scan by utilizing automated exposure control and iterative recon struction technique. The dose-length product (DLP) was 109.20 mGy-cm. COMPARISON: 10/20/2021 Findings: There is no evidence of any significant mediastinal, hilar or axillary lymphadenopathy. Coronary mode ry calcifications are present. Small pericardial effusion. There is no evidence of pleural effusion. The lungs are clear. No pulmonary nodules or infiltrates are noted. Mild emphysema. Images through the upper abdomen reveal 2 mm nonobstructing left renal stone.. Impression: Lung RADS 1: Negative. 12 month follow-up screening CT advised. Probable emphysema. Small pericardial effusion. Reviewed, dictated and finalized at [facility]. 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 12 month follow-up screening CT advised. Probable emphysema. Small pericardial effusion.
== END 2024-01-26 10:32 | disposition home or self-care (01) ==
PROVIDERS: PCP Physician Assistant; Visit Provider Physician Assistant
DX: Z12.2 Encounter for screening for malignant neoplasm of respiratory organs (principal); I31.39 Other pericardial effusion (noninflammatory); F17.210 Nicotine dependence, cigarettes, uncomplicated
CPT/HCPCS: 71271

== ENCOUNTER 2024-10-02 11:30 | Outpatient (CLI) | payer MEDICARE, MEDICAID, SELFPAY ==
--- NOTE | ~2024-10-02 | XR_ITS ---
EXAMINATION: XR chest 2V DATE: 10/02/2024 11:50 INDICATION: Preprocedural exam TECHNIQUE: PA and lateral views of the chest were obtained. COMPARISON: Chest radiograph dated 01/05/2024 FINDINGS: Chronic mild lingular atelectasis/scarring along side a small left pericardial fat pad. Remainder of lungs are clear. No pulmonary edema, pleural effusion or pneumothorax. The cardiomediastinal silhouet te is normal. Moderate thoracic spondylosis. Postoperative changes in the lower cervical spine. IMPRESSION: 1. No acute cardiopulmonary disease. Reviewed, dictated and finalized at location B. GHT RATE CLERK
== END 2024-10-02 11:31 | disposition home or self-care (01) ==
PROVIDERS: PCP Physician Assistant; Visit Provider Physician Assistant
DX: Z01.818 Encounter for other preprocedural examination (principal)
CPT/HCPCS: 71046

== ENCOUNTER 2024-10-07 10:54 | Outpatient (CLI) | payer MEDICARE, MEDICAID, SELFPAY ==
--- NOTE | 2024-10-07 11:10 | ECG_ITS ---
Test Date: 2024-10-07 11:16:35 Measurements Intervals Wells Rate: 97 P: 67 SC: 161 QRS: 79 QRSD: 96 T: 6 QT: 317 QTc: 404 Interpretive Statements SINUS RHYTHM NONSPECIFIC ST-T WAVE ABNORMALITY- LINF/LAT LEADS BASELINE ARTIFACT- II, III, AVF BORDERLINE ECG No previous ECG available for comparison Electronically Signed On 10-07-2024 11:41:06 MECHANICAL SUPERVISOR by Abraham Whitaker D.O.
== END 2024-10-07 10:55 | disposition home or self-care (01) ==
PROVIDERS: PCP Physician Assistant; Visit Provider Physician Assistant
DX: Z01.818 Encounter for other preprocedural examination (principal)
CPT/HCPCS: 93005

== ENCOUNTER 2025-02-10 09:50 | Outpatient (CLI) | payer MEDICARE, MEDICAID, SELFPAY ==
--- NOTE | ~2025-02-10 | CT_ITS ---
EXAMINATION:CT lung screening DATE: 02/10/2025 10:07 INDICATION: Nicotine dependence. Current smoker with 50 pack year history. TECHNIQUE: Computed tomography (CT) of the chest was performed without intravenous contrast. Automate d exposure control and iterative reconstruction technique were employed. The dose-length product (DLP ) was 99.66 mGy-cm. COMPARISON: Chest CT 01/26/2024 FINDINGS: There is mild emphysema. There is stable mild scarring at the lung apices. A calcified left lung nodule is consistent with old granulomatous disease. No pleural effusion. The heart size is nor mal. There are coronary artery calcifications. There is a chronic small pericardial effusion. There i s a 4.9 cm cyst in right kidney. There is a 2 mm stone in left kidney. There is severe cervical and t horacic spondylosis. There is mild chronic height loss of multiple vertebral bodies. IMPRESSION: 1. Lung-RADS category 2: Benign appearance or behavior. Continue annual screening with noncontrast lo w-dose chest CT in 12 months. Reviewed, dictated and finalized at location A. IMPRESSION: 1. Lung-RADS category 2: Benign appearance or behavior. Continue annual screeni ng with noncontrast low-dose chest CT in 12 months.
== END 2025-02-10 09:51 | disposition home or self-care (01) ==
PROVIDERS: PCP Physician Assistant; Visit Provider Physician Assistant
DX: Z12.2 Encounter for screening for malignant neoplasm of respiratory organs (principal); Z87.891 Personal history of nicotine dependence
CPT/HCPCS: 71271

== ENCOUNTER 2025-02-21 10:30 | Outpatient (CLI) | payer MEDICARE, MEDICAID, SELFPAY ==
--- NOTE | ~2025-02-21 | US_ITS ---
Renal-Bladder ultrasound Clinical History: Renal cyst Technique: Real-time sonographic imaging of the kidneys and urinary bladder was performed. Findings: The right kidney measures 9.5 cm in length and the left kidney measures 9.4 cm. There is no hydronephrosis or renal calculus identified. Renal cortical echogenicity is probably within normal l imits. 4.9 cm right upper pole renal cyst present. The urinary bladder is moderately distended at the time of this exam. No intraluminal echoes are iden tified. No abnormal wall thickening is seen. Impression: 4.9 cm right upper pole renal cyst. Reviewed, dictated and finalized at location M. Impression: 4.9 cm right upper pole renal cyst.
--- OUTSIDE RECORDS SUMMARY | 2025-02-21 11:02 | XMS_ITS | Encounter Summary ---
Author Organization [facility] Address [address] [place] [address] Care Team Providers Care Online Media Director Name Role Phone Karthik Triplett MD Primary Care Provider [phone] Salima Emerson PA-C Primary Care Provider [phone] Mookie Foster MD Unavailable [phone] Encounter Details Date Type Department Care Team (Latest Contact Info) Description 09/25/2018 Abstract [facility] , Thu Modi MD Social History Tobacco Use Types Packs/Day Years Used Date Smoking Tobacco: Some Days Cigarettes Electronic Cigarettes Smokeless Tobacco: Current Alcohol Use Standard Drinks/Week Comments No 0 (1 standard drink = 0.6 oz pur e alcohol) Comments No Sex and Gender Information Value Date Recorded Sex Assigned at Not on file Legal Sex Female 6:23 PM CDT Gender Identity Not on file Sexual Orientation Not on file documented as of this encounter Plan of Treatment Not on file documented as of this encounter Visit Diagnoses Not on filedocumented in this encounter Care Teams Online Media Director Relationship Specialty Start Date End Date Karthik Triplett MD [address] [place] [address] [address] [address] PCP - General FAMILY PRACTICE 11/30/17 05/02/20 Salima Emerson PA-C [address] [place] [id number] PCP - General NURSE PRACTITIONER 05/03/20 Mookie Foster MD [address] [place] [address] Consulting Physician HEMATOLOGY/ONCOLOGY 11/22/21 documented as of this encounter
--- OUTSIDE RECORDS SUMMARY | 2025-02-21 11:02 | XMS_ITS | Clinical Summary ---
Author Organization [facility] Address [address] [place] [address] Care Team Providers Care Booth Operator Name Role Phone Salima Emerson PA-C Primary Care Provider [phone] Allergies Active Allergy Reactions Criticality Noted Date Comments Ciprofloxacin Rash Low 11/30/2017 Medications ALPRAZolam 1 MG tablet Take 1 mg by mouth 3 (three) times daily as needed for Anxiety. 04/11/2020 Active traZODone 50 MG tablet Take 50 mg by mouth nightly at bedtime. Active omeprazole 20 MG capsule Take 20 mg by mouth daily. Active magnesium oxide 400 (241.3 Mg) MG tablet Take 400 mg by mouth 2 (two) times a day. Active vitamin D3, cholecalciferol , 1000 UNIT Tab tablet Take 1,000 Units by mouth daily. Active vitamin B-6 50 MG tablet Take 100 mg by mouth daily. Active COMBIVENT RESPIMAT 20-100 MCG/ACT inhaler Inhale 1 puff into the lungs as needed. 05/08/2020 Active rosuvastatin 5 MG tablet Take 5 mg by mouth nightly at bedtime. 08/27/2021 Active Active Problems Problem Noted Date Diagnosed Date UTI (urinary tract infection) 11/21/2021 Chest pain 05/03/2020 Malignant neoplasm of ovary (CMS/HCC HHS/HCC) Cirrhosis of liver (CMS/HCC HHS/HCC) 05/03/2017 Overview (05/03/2020): EGD 05/2016 without varices Ultrasound 03/2017 no lesions Unspecified condition associ ated with female genital organs and menstrual cycle 05/03/2017 Overview (05/03/2020): Possible ovarian cancer, following with [facility] Lumbar canal stenosis 01/01/2014 Lumbar degenerative disc disease 01/01/2014 Spondylolisthesis of lumbar region 01/01/2014 Resolved Problems Problem Noted Date Diagnosed Date Resolved Date Encounter for preventive health examination 12/04/2013 07/31/2020 Immunizations Name Administration Dates Next Due Influenza (Generic) 09/20/2015 Family History Medical History Relation Comments COPD Father Cancer Mother Heart Disease Mother Hyperlipidemia Mother Hypertension Mother Relation Status Comments Father Mother Social History Tobacco Use Types Packs/Day Years [...] on file Sexual Orientation Not on file Last Filed Vital Signs Vital Sign Reading Time Taken Comments Blood Pressure 152/90 11/21/2021 9:36 PM P[facility]ER IN Pulse 65 11/22/2021 11:07 AM P[facility] IN Temperature 36.6 C (97.9 F) 11/21/2021 2:24 PM [facility] IN Respiratory Rate 18 11/22/2021 11:07 AM [facility] IN Oxygen Saturation 99% 11/22/2021 11:07 AM [facility] IN Inhaled Oxygen Concentration - - Weight 59 kg (130 lb 1.1 oz) 11/21/2021 2:24 PM [facility] IN Height 167.6 cm (5' 6 ) 11/21/2021 2:24 PM P[facility] IN Body Mass Index 20.99 11/21/2021 2:24 PM P[facility]ER IN Plan of Treatment Health Maintenance Due Date Last Done Comments Colorectal Cancer Screening Colonoscopy (10 Years) 1956 DTaP, Tdap and Td Vaccines (1 - Tdap) 1975 Mammogram Screening 1996 RSV Immunization or 60+ Years (1 - Risk 60-74 years 1-dose series) 2016 Pneumococcal Vaccine: 65+ Years (2 of 2 - PCV) 05/02/2018 05/02/2017, 09/02/2008 Annual Medicare Wellness Visit 2021 Dexa Scan (General) 2021 COVID-19 Vaccine ( season) 2024 Influenza Adult (#1) 2024 08/25/2020, 07/09/2019, 09/11/2018, Additional history exists Hepatitis C Completed 02/08/2010 Zoster Vaccines Completed 11/08/2019, 08/27/2019 Meningococcal B Vaccine Aged Out No l onger eligible based on patient's age to complete this topic Meningococcal Vaccine Aged Out No luly lavelle eligible based on patient's age to complete this topic RSV Immunizations Under 20 Months Aged Out No longer eligible based on patient's age to complete this topic Goals Goal Patient Goal Type Associated Problems Recent Progress Patient-Stated? Author Patient will return to prior living situation and remain independent in ADLs upon discharge from hospital General No Zena Amador RN Insurance [address] [place] [address] MEDICAID MEDICARE MEDICARE Advance Directives Documents on File Type Date Recorded Patient Scientific Investigator Expl anation Advance Directives and Living Will 05/05/2020 7:36 AM 05-03-20 Signed POA f or Health Care Advance Directives and Living Will 05/05/2020 7:35 AM 05-03-20 Signed POLST Form * DNR (Latest Code Status on File) Date Activated Date Inactivated Comments 11/21/2021 10:40 PM 11/22/2021 8:31 PM * DNR Date Activated Date Inactivated Comments 05/03/2020 3:01 PM 05/05/2020 12:48 PM * Full Code Date Activated Date Inactivated Comments 05/03/2020 12:40 PM 05/03/2020 3:01 PM Care Teams Booth Operator Relationship Specialty Start Date End Date Salima Emerson PA-C [address] [place] [address] PCP - General NURSE PRACTITIONER 05/03/20
--- OUTSIDE RECORDS SUMMARY | 2025-02-21 11:02 | XMS_ITS | Data Portability ---
Author Organization [facility] Address [address] [place] [address] Care Team Providers Care Cotton Inspector Name Role Phone SALIMA GUERRERO Primary Care Provider Assessment Encounter Date Assessment Date Assessment LastModified by Organization Details LastModified Time 11/27/2023 11/27/[address] ALFREDO [id number] colonoscopy 2020? Not available 11/29/2023 08:40:04 01/16/2024 01/16/2024 february 07 bx Not available 01/16/2024 11:26:37 04/16/2024 04/16/2024 GI referral printed and given to patient advised to reschedule oncology visit faxed by pastor 04/16/24 Not available 04/16/2024 11:38:48 Plan of Treatment Reminders Order Date Submit Date Provider Last Modified By Organization Details Last Modified Time Details Appointments None recorded. Lab CBC w/ auto diff 2024 025 [facility], [address], [address], [place], [address], 03:35:43 CMP, serum or plasma 2024 025 [facility], [address], [address], [place], [address], 03:35:41 HbA1c (hemoglobi n A1c), blood 2024 025 [facility], [address], [address], [place], [address], 5 03:35:42 lipid panel, serum 2024 025 [facility], [address], [address], [place], [address], 5 03:35:40 urinalysis , dipstick 2023 024 [facility] In-Office Order, Internal Use Only DO Not Attach Compendium DO Not Attach Compendium, Do Not Delete/merge, [id number] 12:02:18 culture, urine 2023 024 [facility], [address], [address], [place], [address], 4 14:20:59 HbA1c (hemoglobi n A1c), blood 2023 024 [facility], [address], [address], [place], [address], 4 09:24:11 CBC w/ auto diff 2023 024 [facility], [address], [address], [place], [address], 4 09:24:11 lipid panel, serum 2023 024 [facility], [address], [address], [place], [address], 4 09:24:10 CMP, serum or plasma 2023 024 [facility], [address], [address], [place], [address], 4 09:24:10 Referral gastroente rologist referral - Dr Meyer performed colonoscop y 2020 024 jason Teague MD, [address] [facility], [place], [address], 4 14:47:23 Procedures None recorded. Surgeries None recorded. Imaging MAMMO, screening, digital, bilateral 2024 025 [facility] (Imaging), [address], [place], [address], 5 14:45:25 LDCT, chest, for lung cancer screening 2024 025 [facility] (Imaging), [facility] [address], [place], [address], 5 07:32:48 LDCT, chest, for lung cancer screening 2023 024 [facility] (Imaging), [facility] [address], [place], [address], 4 12:20:26 XR, chest, 2 view 2023 024 [facility] (Imaging), [facility] [facility], [place], [address], 4 11:10:47 Medication Orders calcium 1,000 mg (as carbonate) -vitamin D3 20 mcg (800 unit) tablet 2023 024 [email or web address]28933, [address] [facility], [place], [place], [id number], 4 11:28:15 Tessalon Perles 100 mg capsule [email or web address] [employer] [facility] #48102, [address] [facility], [place], [place], [id number], 4 10:17:19 prednisone 20 mg tablet 2023 024 [facility] #23581, [address], [place], [place], [id number], 4 11:23:06 Patient TargetsNo targets recorded. Patient Instructions Encounter Date Encounter Id Patient Instructions Last Modified By Organization Details Last Modified Time 11/27/2023 [id number] complete PFT w/ post bronchodilator spirometry* [facility] Not available 12/11/2023 10:35:11 08/27/2024 [id number] A healthy lifestyle: care instructions Not available 08/27/2024 11:41:26 01/27/2025 [id number] Quitting Tobacco : Care Instructions [email or web address] Not available 01/27/2025 11:52:45 Reason for Referral Hospital Nurse Referral for History of polyp of colon Dr Meyer performed colonoscopy 2020 Referring Physician: Salima Guerrero, Therapeutic Massage Technician, Encounter Date: 01/16/2024 Results Created Date Observation Date Name Description Value Unit Range Abnormal Flag Note LastModifiedBy Organization Detail LastModifiedTime 11/27/1911/28/2023 LIPID PANEL cholesterol, total 222 mg/dL 100-19 9 above high normal Not Available [facility] ([facility]) [address] [facility], [place], [address], 11/28/2023 09:24:10 11/27/1911/28/2023 LIPID PANEL triglyceride s 117 mg/dL 0-149 Not Available [facility] ([facility]) [address] [facility], [place], [address], 11/28/2023 09:24:10 11/27/1911/28/2023 LIPID PANEL HDL cholesterol 74 mg/dL >39 Not Available [facility]) [address] [facility], [place], [address], 11/28/2023 09:24:10 11/27/19 24 11/28/2023 LIPID PANEL VLDL cholesterol kelsi 20 mg/dL 5-40 Not Available [facility] ([facility]) [address] [place], [address], 11/28/2023 09:24:10 11/27/19 24 11/28/2023 LIPID PANEL LDL chol calc ([facility]) 128 mg/dL 0-99 above high normal Not Available [facility] ([facility]) [address] [place], [address], 11/28/2023 09:24:10 11/27/19 24 11/28/2023 COMP. METAB OLIC PANEL (14) glucose 95 mg/dL 70-99 Not Available [facility] ([facility]) [address] [place], [address], 11/28/2023 09:24:10 11/27/19 24 11/28/2023 COMP. METAB OLIC PANEL (14) BUN 15 mg/dL 8-27 Not Available [facility] ([facility]) [address] [place], [address], 11/28/2023 09:24:10 11/27/19 24 11/28/2023 COMP. METAB OLIC PANEL (14) creatinine 0.82 mg/dL 0.57-1 .00 Not Available [facility] ([facility]) [address] [place], [address], 11/28/2023 09:24:10 11/27/1911/28/2023 COMP. METAB OLIC PANEL (14) eGFR 78 mL/mi n/1.7 3 >59 Not Available [facility] ([facility]) [address] [place], [address], 11/28/2023 09:24:10 11/27/19 24 11/28/2023 COMP. METAB OLIC PANEL (14) BUN/creatini ne ratio 18 12-28 Not Available [facility] ([facility]) [address] [place], [address], 11/28/2023 09:24:10 11/27/19 24 11/28/2023 COMP. METAB OLIC PANEL (14) sodium 139 mmol/ L 134-14 4 Not Available [facility] ([facility]) [address] [place], [address], 11/28/2023 09:24:10 11/27/19 24 11/28/2023 COMP. METAB OLIC PANEL (14) potassium 4.0 mmol/ L 3.5-5. 2 Not Available [facility] ([facility]) [address] [place], [address], 11/28/2023 09:24:10 11/27/19 24 11/28/2023 COMP. METAB OLIC PANEL (14) chloride 103 mmol/ L 96-106 Not Available [facility] ([facility]) [address] [place], [address], 11/28/2023 09:24:10 11/27/19 24 11/28/2023 COMP. METAB OLIC PANEL (14) carbon dioxide, total 21 mmol/ L 20-29 Not Available [facility] ([facility]) [address] [place], [address], 11/28/2023 09:24:10 11/27/1911/28/2023 COMP. METAB OLIC PANEL (14) calcium 9.4 mg/dL 8.7-10 .3 Not Available [facility] ([facility]) [address] [place], [address], 11/28/2023 09:24:10 11/27/1911/28/2023 COMP. METAB OLIC PANEL (14) protein, total 6.9 g/dL 6.0-8. 5 Not Available [facility] ([facility]) [address] [place], [address], 11/28/2023 09:24:10 11/27/19 24 11/28/2023 COMP. METAB OLIC PANEL (14) albumin 4.3 g/dL 3.9-4. 9 Not Available [facility] ([facility]) [address] [place], [address], 11/28/2023 09:24:10 11/27/19 24 11/28/2023 COMP. METAB OLIC PANEL (14) globulin, total 2.6 g/dL 1.5-4. 5 Not Available [facility] ([facility]) [address] [place], [address], 11/28/2023 09:24:10 11/27/19 24 11/28/2023 COMP. METAB OLIC PANEL (14) A/G ratio 1.7 1.2-2. 2 Not Available [facility] ([facility]) [address] [facility] [place], [address], 11/28/2023 09:24:10 11/27/19 24 11/28/2023 COMP. METAB OLIC PANEL (14) bilirubin, total <0.2 mg/dL 0.0-1. 2 Not Available [facility] ([facility]) [address] [facility] [place], [address], 11/28/2023 09:24:10 11/27/19 24 11/28/2023 COMP. METAB OLIC PANEL (14) alkaline phosphatase 66 IU/L 44-121 Not Available [facility] ([facility]) [address] [facility] [place], [address], 11/28/2023 09:24:10 11/27/19 24 11/28/2023 COMP. METAB OLIC PANEL (14) AST (SGOT) 20 IU/L 0-40 Not Available [facility] ([facility]) [address] [facility] [place], [address], 11/28/2023 09:24:10 01/08/11/28/2023 COMP. METAB OLIC PANEL (14) ALT (SGPT) 21 IU/L 0-32 Not Available [facility] ([facility]) [address] [facility], [place], [address], 11/28/2023 09:24:10 11/27/1911/28/2023 HEMOG LOBIN A1C hemoglobin A1C 5.6 % 4.8-5. 6 Predi abete s: 5.7 - 6.4 Diabe radha: >6.4 Glyce joselin contr ol for adult s with diabe radha: <7.0 Not Available [facility] ([facility]) [address] [facility], [place], [address], 11/28/2023 09:24:11 11/27/1911/28/2023 CBC WITH DIFFE RENTI AL/PL ATELE T WBC 10.8 x10e3 /uL 3.4-10 .8 Not Available [facility] ([facility]) [address] [facility], [place], [address], 11/28/2023 09:24:11 11/27/1911/28/2023 CBC WITH DIFFE RENTI AL/PL ATELE T RBC 3.81 x10e6 /uL 3.77-5 .28 Not Available [facility] ([facility]) [address] [place], [address], 11/28/2023 09:24:11 11/27/1911/28/2023 CBC WITH DIFFE RENTI AL/PL ATELE T hemoglobin 11.9 g/dL 11.1-1 5.9 Not Available [facility] ([facility]) [address] [place], [address], 11/28/2023 09:24:11 11/27/1911/28/2023 CBC WITH DIFFE RENTI AL/PL ATELE T hematocrit 35.5 % 34.0-4 6.6 Not Available [facility] ([facility]) [address] [place], [address], 11/28/2023 09:24:11 11/27/19 24 11/28/2023 CBC WITH DIFFE RENTI AL/PL ATELE T MCV 93 fL 79-97 Not Available [facility] ([facility]) [address], [place], [address], 11/28/2023 09:24:11 11/27/1911/28/2023 CBC WITH DIFFE RENTI AL/PL ATELE T MCH 31.2 pg 26.6-3 3.0 Not Available [facility] ([facility]) [address] [facility], [place], [address], 11/28/2023 09:24:11 11/27/19 24 11/28/2023 CBC WITH DIFFE RENTI AL/PL ATELE T MCHC 33.5 g/dL 31.5-3 5.7 Not Available [facility] ([facility]) [address] [facility], [place], [address], 11/28/2023 09:24:11 11/27/1911/28/2023 CBC WITH DIFFE RENTI AL/PL ATELE T RDW 13.4 % 11.7-1 5.4 Not Available [facility] ([facility]) [address] [facility], [place], [address], 11/28/2023 09:24:11 11/27/1911/28/2023 CBC WITH DIFFE RENTI AL/PL ATELE T platelets 267 x10e3 /uL 150-45 0 Not Available [facility] ([facility]) [address] [facility], [place], [address], 11/28/2023 09:24:11 11/27/1911/28/2023 CBC WITH DIFFE RENTI AL/PL ATELE T neutrophils 77 % notest ab. Not Available [facility] ([facility]) [address] [facility], [place], [address], 11/28/2023 09:24:11 11/27/19 24 11/28/2023 CBC WITH DIFFE RENTI AL/PL ATELE T lymphs 17 % notest ab. Not Available [facility] ([facility]) [address] [facility] [place], [address], 11/28/2023 09:24:11 11/27/19 24 11/28/2023 CBC WITH DIFFE RENTI AL/PL ATELE T monocytes 4 % notest ab. Not Available [facility] ([facility]) [address] [facility], [place], [address], 11/28/2023 09:24:11 11/27/1911/28/2023 CBC WITH DIFFE RENTI AL/PL ATELE T eos 0 % notest ab. Not Available [facility] ([facility]) [address] [facility] [place], [address], 11/28/2023 09:24:11 11/27/1911/28/2023 CBC WITH DIFFE RENTI AL/PL ATELE T basos 1 % notest ab. Not Available [facility] ([facility]) [address] [facility] [place], [address], 11/28/2023 09:24:11 11/27/19 24 11/28/2023 CBC WITH DIFFE RENTI AL/PL ATELE T neutrophils (absolute) 8.3 x10e3 /uL 1.4-7. 0 above high normal Not Available [facility] ([facility]) [address] [facility] [place], [address], 11/28/2023 09:24:11 11/27/1911/28/2023 CBC WITH DIFFE RENTI AL/PL ATELE T lymphs (absolute) 1.9 x10e3 /uL 0.7-3. 1 Not Available [facility] ([facility]) [address] [facility] [place], [address], 11/28/2023 09:24:11 01/08/20 24 11/28/2023 CBC WITH DIFFE RENTI AL/PL ATELE T monocytes(ab solute) 0.4 x10e3 /uL 0.1-0. 9 Not Available [facility] ([facility]) [address] [facility], [place], [address], 11/28/2023 09:24:11 11/27/19 24 11/28/2023 CBC WITH DIFFE RENTI AL/PL ATELE T eos (absolute) 0.0 x10e3 /uL 0.0-0. 4 Not Available [facility] ([facility]) [address] [facility], [place], [address], 11/28/2023 09:24:11 11/27/1911/28/2023 CBC WITH DIFFE RENTI AL/PL ATELE T baso (absolute) 0.1 x10e3 /uL 0.0-0. 2 Not Available [facility] ([facility]) [address] [facility], [place], [address], 11/28/2023 09:24:11 11/27/1911/28/2023 CBC WITH DIFFE RENTI AL/PL ATELE T immature granulocytes 1 % notest ab. Not Available [facility] ([facility]) [address] [facility], [place], [address], 11/28/2023 09:24:11 11/27/1911/28/2023 CBC WITH DIFFE RENTI AL/PL ATELE T immature grans (abs) 0.2 x10e3 /uL 0.0-0. 1 above high normal (An eleva hazel perce ntage of Immat ure Granu locyt es has not been found to be clini kelsey signi fican t as a sole clini kelsi predi ctor of disea se. Does NOT inclu de bands or blast cells . Pregn kya assoc iated physi ologi kelsi leuko cytos is may also show incre ased immat ure granu locyt es witho ut clini kelsi signi fican ce.) Not Available [facility] ([facility]) [address] [facility], [place], [address], 11/28/2023 09:24:11 08/27/2008/31/2024 URINE CULTU RE, ROUTI NE urine culture, routine FINAL REPORT abnormal Not Available [facility] ([facility]) [address] [facility], [place], [address], 08/31/2024 14:20:58 08/27/2008/31/2024 URINE CULTU RE, ROUTI NE result 1 COMMEN T abnormal Esche nohelia a coli, ident ified by an autom ated bioch emica l syste m. Cefaz juvenal <=4 ug/mL Cefaz juvenal with an JOSELIN <=16 predi cts susce ptibi lity to the oral agent s cefac mandie, cefdi stephen, cefpo doxim e, cefpr ozil, cefur oxime , cepha lexin , and lorac arbef when used for thera py of uncom plica hazel urina ry tract infec tions due to E. coli, Klebs iella pneum oniae , and Prote us mirab ilis. Great er than 100,0 00 colon y formi ng units per mL Not Available [facility] ([facility]) [address] [facility], [place], [address], 08/31/2024 14:20:58 08/27/2008/31/2024 URINE CULTU RE, ROUTI NE antimicrobia l susceptibili ty COMMEN T S = Susce ptibl e; I = Inter media te; R = Resis tant P = Posit dean; N = Negat dean MICS are expre ssed in micro grams per mL Antib iotic RSLT# 1 RSLT# 2 RSLT# 3 RSLT# 4 Amoxi cilli n/Cla vulan ic Acid S Ampic illin R Cefep morenita S Ceftr iaxon e S Cefur oxime S Cipro floxa jd R Ertap enem S Genta micin S Imipe nem S Levof loxac in R Merop enem S Nitro furan toin S Piper acill in/Ta zobac jin S Tetra cycli ne S Tobra mycin S Trime thopr im/Spear lfa R Not Available [facility] ([facility]) [address] [facility], [place], [address], 08/31/2024 14:20:58 08/28/2008/28/2024 urina lysis , dipst ick Leukocytes Modera te Not Available In-Office Order Internal Use Only DO Not Attach Compendium DO Not Attach Compendium, Do Not Delete/merge, [id number] 08/27/2024 11:53:34 08/28/20 24 08/28/2024 urina lysis , dipst ick Nitrite negati ve Not Available In-Office Order Internal Use Only DO Not Attach Compendium DO Not Attach Compendium, Do Not Delete/merge, [id number] 08/27/2024 11:53:34 08/28/20 24 08/28/2024 urina lysis , dipst ick Urobilinogen .2 Not Available In-Of fice Order Internal Use Only DO Not Attach Compendium DO Not Attach Compendium, Do Not Delete/merge, [id number] 08/27/2024 11:53:34 08/28/20 24 08/28/2024 urina lysis , dipst ick Protein 30 Not Available In-Office Order Internal Use Only DO Not Attach Compendium DO Not Attach Compendium, Do Not Delete/merge, [id number] 08/27/2024 11:53:34 08/28/20 24 08/28/2024 urina lysis , dipst ick pH 6.0 Not Available In-Office Order Internal Use Only DO Not Attach Compendium DO Not Attach Compendium, Do Not Delete/merge, [id number] 08/27/2024 11:53:34 08/28/20 24 08/28/2024 urina lysis , dipst ick Blood Non-He molyze d: Trace Not Available In-Office Order Internal Use Only DO Not Attach Compendium DO Not Attach Compendium, Do Not Delete/merge, [id number] 08/27/2024 11:53:34 08/28/20 24 08/28/2024 urina lysis , dipst ick Specific [place] 1.030 Not Available In-Off ice Order Internal Use Only DO Not Attach Compendium DO Not Attach Compendium, Do Not Delete/merge, [id number] 08/27/2024 11:53:34 08/28/20 24 08/28/2024 urina lysis , dipst ick Ketone Negati ve Not Available In-Office Order Internal Use Only DO Not Attach Compendium DO Not Attach Compendium, Do Not Delete/merge, [id number] 08/27/2024 11:53:34 08/28/20 24 08/28/2024 urina lysis , dipst ick Bilirubin Negati ve Not Available In-Office Order Internal Use Only DO Not Attach Compendium DO Not Attach Compendium, Do Not Delete/merge, [id number] 08/27/2024 11:53:34 08/28/20 24 08/28/2024 urina lysis , dipst ick Glucose Negati ve Not Available In-Office Order Internal Use Only DO Not Attach Compendium DO Not Attach Compendium, Do Not Delete/merge, [id number] 08/27/2024 11:53:34 08/28/20 24 08/28/2024 urina lysis , dipst ick Appearance Clear Not Available In-Offi ce Order Internal Use Only DO Not Attach Compendium DO Not Attach Compendium, Do Not Delete/merge, [id number] 08/27/2024 11:53:34 08/28/20 24 08/28/2024 urina lysis , dipst ick Color Dark Yellow Not Available In-Office Order Internal Use Only DO Not Attach Compendium DO Not Attach Compendium, Do Not Delete/merge, [id number] 08/27/2024 11:53:34 02/01/20 25 02/02/2025 LIPID PANEL cholesterol, total 174 mg/dL 100-19 9 Not Available [facility] ([facility]) [address] [facility], [place], [address], 02/02/2025 03:35:40 02/01/20 25 02/02/2025 LIPID PANEL triglyceride s 147 mg/dL 0-149 Not Available [facility] ([facility]) [address] [facility], [place], [address], 02/02/2025 03:35:40 02/01/20 25 02/02/2025 LIPID PANEL HDL cholesterol 66 mg/dL >39 Not Available [facility] ([facility]) [address] [place], [address], 02/02/2025 03:35:40 02/01/20 25 02/02/2025 LIPID PANEL VLDL cholesterol kelsi 25 mg/dL 5-40 Not Available [facility] ([facility]) [address] [place], [address], 02/02/2025 03:35:40 02/01/20 25 02/02/2025 LIPID PANEL LDL chol calc ([facility]) 83 mg/dL 0-99 Not Available [facility] ([facility]) [address] [place], [address], 02/02/2025 03:35:40 02/01/20 25 02/02/2025 COMP. METAB OLIC PANEL (14) glucose 109 mg/dL 70-99 above high normal Not Available [facility] ([facility]) [address] [place], [address], 02/02/2025 03:35:41 02/01/20 25 02/02/2025 COMP. METAB OLIC PANEL (14) BUN 19 mg/dL 8-27 Not Available [facility] ([facility]) [address] [place], [address], 02/02/2025 03:35:41 02/01/20 25 02/02/2025 COMP. METAB OLIC PANEL (14) creatinine 0.88 mg/dL 0.57-1 .00 Not Available [facility] ([facility]) [address] [place], [address], 02/02/2025 03:35:41 02/01/20 25 02/02/2025 COMP. METAB OLIC PANEL (14) eGFR 72 mL/mi n/1.7 3 >59 Not Available [facility] ([facility]) [address] [facility], [place], [address], 02/02/2025 03:35:41 02/01/20 25 02/02/2025 COMP. METAB OLIC PANEL (14) BUN/creatini ne ratio 22 12-28 Not Available [facility] ([facility]) [address] [facility], [place], [address], 02/02/2025 03:35:41 02/01/20 25 02/02/2025 COMP. METAB OLIC PANEL (14) sodium 141 mmol/ L 134-14 4 Not Available [facility] ([facility]) [address] [facility], [place], [address], 02/02/2025 03:35:41 02/01/20 25 02/02/2025 COMP. METAB OLIC PANEL (14) potassium 4.8 mmol/ L 3.5-5. 2 Not Available [facility] ([facility]) [address] [facility], [place], [address], 02/02/2025 03:35:41 02/01/20 25 02/02/2025 COMP. METAB OLIC PANEL (14) chloride 102 mmol/ L 96-106 Not Available [facility] ([facility]) [address] [facility], [place], [address], 02/02/2025 03:35:41 02/01/20 25 02/02/2025 COMP. METAB OLIC PANEL (14) carbon dioxide, total 23 mmol/ L 20-29 Not Available [facility] ([facility]) [address] [facility], [place], [address], 02/02/2025 03:35:41 02/01/20 25 02/02/2025 COMP. METAB OLIC PANEL (14) calcium 9.9 mg/dL 8.7-10 .3 Not Available [facility] ([facility]) [address] [facility], [place], [address], 02/02/2025 03:35:41 02/01/20 25 02/02/2025 COMP. METAB OLIC PANEL (14) protein, total 7.4 g/dL 6.0-8. 5 Not Available [facility] ([facility]) [address], [place], [address], 02/02/2025 03:35:41 02/01/20 25 02/02/2025 COMP. METAB OLIC PANEL (14) albumin 4.5 g/dL 3.9-4. 9 Not Available [facility] ([facility]) [address], [place], [address], 02/02/2025 03:35:41 02/01/20 25 02/02/2025 COMP. METAB OLIC PANEL (14) globulin, total 2.9 g/dL 1.5-4. 5 Not Available [facility] ([facility]) [address] [facility], [place], [address], 02/02/2025 03:35:41 02/01/20 25 02/02/2025 COMP. METAB OLIC PANEL (14) bilirubin, total 0.2 mg/dL 0.0-1. 2 Not Available [facility] ([facility]) [address] [facility], [place], [address], 02/02/2025 03:35:41 02/01/20 25 02/02/2025 COMP. METAB OLIC PANEL (14) alkaline phosphatase 68 IU/L 44-121 Not Available [facility] ([facility]) [address] [facility], [place], [address], 02/02/2025 03:35:41 02/01/20 25 02/02/2025 COMP. METAB OLIC PANEL (14) AST (SGOT) 24 IU/L 0-40 Not Available [facility] ([facility]) [address] [facility], [place], [address], 02/02/2025 03:35:41 02/01/2002/02/2025 COMP. METAB OLIC PANEL (14) ALT (SGPT) 12 IU/L 0-32 Not Available [facility] ([facility]) [address] [facility], [place], [address], 02/02/2025 03:35:41 02/01/20 25 02/01/2025 HEMOG LOBIN A1C hemoglobin A1C 5.8 % 4.8-5. 6 above high normal Predi abete s: 5.7 - 6.4 Diabe radha: >6.4 Glyce joselin contr ol for adult s with diabe radah: <7.0 Not Available [facility] ([facility]) [address] [facility], [place], [address], 02/02/2025 03:35:42 02/01/20 25 02/01/2025 CBC WITH DIFFE RENTI AL/PL ATELE T WBC 9.2 x10e3 /uL 3.4-10 .8 Not Available [facility] ([facility]) [address] [facility], [place], [address], 02/02/2025 03:35:43 02/01/2002/01/2025 CBC WITH DIFFE RENTI AL/PL ATELE T RBC 4.37 x10e6 /uL 3.77-5 .28 Not Available [facility] ([facility]) [address] [place], [address], 02/02/2025 03:35:43 02/01/2002/01/2025 CBC WITH DIFFE RENTI AL/PL ATELE T hemoglobin 13.6 g/dL 11.1-1 5.9 Not Available [facility] ([facility]) [address] [place], [address], 02/02/2025 03:35:43 02/01/20 25 02/01/2025 CBC WITH DIFFE RENTI AL/PL ATELE T hematocrit 40.6 % 34.0-4 6.6 Not Available [facility] ([facility]) [address] [facility], [place], [address], 02/02/2025 03:35:43 02/01/20 25 02/01/2025 CBC WITH DIFFE RENTI AL/PL ATELE T MCV 93 fL 79-97 Not Available [facility] ([facility]) [address] [facility], [place], [address], 02/02/2025 03:35:43 02/01/20 25 02/01/2025 CBC WITH DIFFE RENTI AL/PL ATELE T MCH 31.1 pg 26.6-3 3.0 Not Available [facility] ([facility]) [address] [facility], [place], [address], 02/02/2025 03:35:43 02/01/20 25 02/01/2025 CBC WITH DIFFE RENTI AL/PL ATELE T MCHC 33.5 g/dL 31.5-3 5.7 Not Available [facility] ([facility]) [address] [facility], [place], [address], 02/02/2025 03:35:43 02/01/20 25 02/01/2025 CBC WITH DIFFE RENTI AL/PL ATELE T RDW 13.8 % 11.7-1 5.4 Not Available [facility] ([facility]) [address] [place], [address], 02/02/2025 03:35:43 02/01/2002/01/2025 CBC WITH DIFFE RENTI AL/PL ATELE T platelets 247 x10e3 /uL 150-45 0 Not Available [facility] ([facility]) [address] [place], [address], 02/02/2025 03:35:43 02/01/20 25 02/01/2025 CBC WITH DIFFE RENTI AL/PL ATELE T neutrophils 71 % notest ab. Not Available [facility] ([facility]) [address] [place], [address], 02/02/2025 03:35:43 02/01/20 25 02/01/2025 CBC WITH DIFFE RENTI AL/PL ATELE T lymphs 21 % notest ab. Not Available [facility] ([facility]) [address] [facility], [place], [address], 02/02/2025 03:35:43 02/01/20 25 02/01/2025 CBC WITH DIFFE RENTI AL/PL ATELE T monocytes 7 % notest ab. Not Available [facility] ([facility]) [address] [facility], [place], [address], 02/02/2025 03:35:43 02/01/20 25 02/01/2025 CBC WITH DIFFE RENTI AL/PL ATELE T eos 1 % notest ab. Not Available [facility] ([facility]) [address] [facility], [place], [address], 02/02/2025 03:35:43 02/01/20 25 02/01/2025 CBC WITH DIFFE RENTI AL/PL ATELE T basos 0 % notest ab. Not Available [facility] ([facility]) [address] [facility], [place], [address], 02/02/2025 03:35:43 02/01/20 25 02/01/2025 CBC WITH DIFFE RENTI AL/PL ATELE T neutrophils (absolute) 6.4 x10e3 /uL 1.4-7. 0 Not Available [facility] ([facility]) [address] [facility], [place], [address], 02/02/2025 03:35:43 02/01/20 25 02/01/2025 CBC WITH DIFFE RENTI AL/PL ATELE T lymphs (absolute) 2.0 x10e3 /uL 0.7-3. 1 Not Available [facility] ([facility]) [address] [facility], [place], [address], 02/02/2025 03:35:43 02/01/20 25 02/01/2025 CBC WITH DIFFE RENTI AL/PL ATELE T monocytes(ab solute) 0.7 x10e3 /uL 0.1-0. 9 Not Available [facility] ([facility]) [address] [facility], [place], [address], 02/02/2025 03:35:43 02/01/20 25 02/01/2025 CBC WITH DIFFE RENTI AL/PL ATELE T eos (absolute) 0.1 x10e3 /uL 0.0-0. 4 Not Available [facility] ([facility]) [address] [facility], [place], [address], 02/02/2025 03:35:43 02/01/20 25 02/01/2025 CBC WITH DIFFE RENTI AL/PL ATELE T baso (absolute) 0.0 x10e3 /uL 0.0-0. 2 Not Available [facility] ([facility]) [address] [facility], [place], [address], 02/02/2025 03:35:43 02/01/20 25 02/01/2025 CBC WITH DIFFE RENTI AL/PL ATELE T immature granulocytes 0 % notest ab. Not Available [facility] ([facility]) [address] [facility], [place], [address], 02/02/2025 03:35:43 02/01/20 25 02/01/2025 CBC WITH DIFFE RENTI AL/PL ATELE T immature grans (abs) 0.0 x10e3 /uL 0.0-0. 1 Not Available [facility] ([facility]) [address] [place], [address], 02/02/2025 03:35:43 11/10/20 23 11/10/2023 MAMMO , scree joo, digit al, bilat eral No observ ation record ed. Yamil [address] [facility], [place], [address], 11/16/2023 09:24:38 11/10/20 23 11/10/2023 MAMMO , scree joo, digit al, bilat eral No observ ation record ed. [address] [address], [place], [address], 11/16/2023 09:24:39 11/10/20 23 11/10/2023 MAMMO , scree joo, digit al, bilat eral No observ ation record ed. [address] [address], [place], [address], 11/16/2023 09:24:40 11/28/19 24 11/28/2023 XR, chest , 2 view No observ ation record ed. [address] [address], [place], [address], 11/28/2023 14:29:46 11/29/19 24 11/28/2023 XR, chest , 2 view No observ ation record ed. [address] [address], [place], [address], 11/29/2023 15:10:43 12/11/19 24 12/08/2023 compl ete PFT w/ post [facility] hodil ator dustin metry * No observ ation record ed. [address] [address], [place], [address], 12/13/2023 09:25:26 12/13/19 24 12/12/2023 MAMMO , diagn ostic , unila teral No observ ation record ed. [address] [address], [place], [address], 12/13/2023 16:29:39 12/13/19 24 12/12/2023 MAMMO , diagn ostic , unila teral No observ ation record ed. [address] [place], [address], 12/13/2023 16:29:40 12/21/19 24 12/20/2023 DEXA, axial skele ton + verte bral fract ure asses sment No observ ation record ed. [address], [place], [address], 01/16/2024 11:12:21 12/21/19 24 01/08/2024 PFT, compl ete No observ ation record ed. [facility] Not Available 2023 14:52:10 12/21/19 24 12/20/2023 DEXA, axial skele ton + verte bral fract ure asses sment No observ ation record ed. [address], [place], [address], 12/26/2023 08:22:35 01/05/20 24 01/05/2024 XR, chest , 2 view No observ ation record ed. [address], [place], [address], 01/16/2024 11:12:22 01/26/20 24 01/26/2024 LDCT, chest , for lung cance r scree joo No observ ation record ed. [address], [place], [address], 01/29/2024 09:50:39 01/26/20 24 01/26/2024 LDCT, chest , for lung cance r scree joo No observ ation record ed. [address], [place], [address], 01/26/2024 18:05:36 10/02/20 24 10/02/2024 XR, chest , 2 view No observ ation record ed. [address], [place], [address], 10/07/2024 09:57:28 10/02/20 24 10/02/2024 XR, chest , 2 view No observ ation record ed. [facility] ([facility]) [facility] [address], [place], [address], 10/08/2024 09:14:16 10/07/20 24 10/07/2024 rhyth m strip , EKG* No observ ation record ed. [facility] (Resp Services) [facility] [address], [place], [address], 10/11/2024 09:32:01 02/12/20 25 02/10/2025 LDCT, chest , for lung cance r scree joo No observ ation record ed. [address], [place], [address], 02/11/2025 14:38:46 02/12/20 25 02/10/2025 LDCT, chest , for lung cance r scree joo No observ ation record ed. [address], [place], [address], 02/11/2025 13:58:57 Result Notes None recorded. 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 KOURTNEY [place] [facility] [place] 12:04:08 Chronic obstructi ve pulmonary disease 70400871 Active 2017 Day H[place] [facility] 12:04:19 Depressiv e disorder 41780923 Active 2017 Day [place] [facility] [place] 12:04:28 Chronic hepatitis 62495521 Active 2017 Day [place] [facility] [place] 12:04:45 Hypertens dean disorder 41340214 Active 2017 Day [place] [facility] [place] 12:04:57 Disease of liver 453693074 Active 2017 Day [place] [facility] [place] 12:05:07 Osteoporo sis 79736635 Active 2017 Day [place] [facility] [place] 12:05:18 Neuropath y 450694904 Active 2018 MONO ALVARADO Attn: Accountin g,[address] [facility], [place], [address], [place] [facility] 9 12:22:03 Malignant tumor of ovary 297068513 Completed 201904/06/2021 MONO ALVARADO Attn: Accountin g,[address] [facility], [place], [address], [place] [facility] 1 13:44:21 Coronary atheroscl erosis 451683357 Active 2019 MONO ALVARADO Attn: Accountin g,[address] [facility], [place], [address], [place] [facility] 0 12:35:24 Malignant tumor of ovary 086905581 Active 2020 Debra Osor[place] [facility] 1 09:20:09 Chronic low back pain 964301027 Active 2020 MONO ALVARADO Attn: Accountin g,[address] [facility], [place], [address], [place] [facility] 1 16:33:56 Dystonia 69050604 Active 2022 MONO ALVARADO Attn: Accountin g,[address] [facility], [place], [address], [place] [facility] 3 14:33:21 Suicide attempt by drug overdose Active 2022 MONO ALVARADO Attn: Accountin g,[address] [facility], [place], [address], [place] [facility] 3 14:57:00 Smoker 22131977 Active 2022 MONO ALVARADO Attn: Tesfayein g,[address] [facility], [place], [address], [place] [facility] 3 13:34:34 Cervical myelopath y 974940896 Active 2022 MONO ALVARADO Attn: Accountin g,[address] [facility], [place], [address], [place] [facility] 3 12:13:00 History of malignant neoplasm of ovary 235377550 Active 2023 DX 2016 MONO ALVARADO Attn: Accountin g,[address] [facility], [place], [address], [place] [facility] 4 11:10:41 Cirrhosis of liver 00715060 Active 2023 MONO ALVARADO Attn: Accountin g,[address] [facility], [place], [address], [place] [facility] 4 08:38:21 Mass of left breast 660842911118 25893 Active 2023 MONO ALVARADO Attn: Accountin g,[address] [facility], [place], [address], [place] [facility] 4 16:32:54 Osteopeni a 240609000 Active 2023 MONO ALVARADO Attn: Accountin mecca,[address], [place], [address], [facility] 11:27:12 Problem Notes None recorded. Procedures Surgical History Date Name Laterality Status Provider Name and Address Organization Details Recorded Time 06/13/20 24 laminectomy completed MONO ALVARADO Attn: Accounting,[address] [facility], [place], [address], [facility] 08/27/2024 11:46:07 11/20/19 17 total abdominal hysterectomy completed MONO ALVARADO Attn: Accounting,[address] [facility], [place], [address], [facility] 04/16/2024 11:09:51 Breast Surgery completed Day Horne [place] - [facility] 10/02/2018 12:08:33 Imaging Results Imaging Date Name Status LastModified by Organization Details LastModified Time 11/10/2023 MAMMO, screening, digital, bilateral completed [address], [address], 11/16/2023 09:24:38 11/10/2023 MAMMO, screening, digital, bilateral completed [address], [address], 11/16/2023 09:24:39 11/10/2023 MAMMO, screening, digital, bilateral completed [address], [address], 11/16/2023 09:24:40 11/28/2023 XR, chest, 2 view completed [address], [address], 11/28/2023 14:29:46 11/28/2023 XR, chest, 2 view completed [address], [address], 11/29/2023 15:10:43 12/08/2023 complete PFT w/ post bronchodilator spirometry* completed [address] [address], [place], [address], 12/13/2023 09:25:26 12/12/2023 MAMMO, diagnostic, unilateral completed [address] [address], [place], [address], 12/13/2023 16:29:39 12/12/2023 MAMMO, diagnostic, unilateral completed [address] [address], [place], [address], 12/13/2023 16:29:40 12/20/2023 DEXA, axial skeleton + vertebral fracture assessment completed [address] [address], [place], [address], 01/16/2024 11:12:21 01/08/2024 PFT, complete completed [facility] Information not available 12/21/2023 14:52:10 12/20/2023 DEXA, axial skeleton + vertebral fracture assessment completed [address] [address], [place], [address], 12/26/2023 08:22:35 01/05/2024 XR, chest, 2 view completed [address], [address], 01/16/2024 11:12:22 01/26/2024 LDCT, chest, for lung cancer screening completed [address], [address], 01/29/2024 09:50:39 01/26/2024 LDCT, chest, for lung cancer screening completed [address], [address], 01/26/2024 18:05:36 10/02/2024 XR, chest, 2 view completed [address] [place], [address], 10/07/2024 09:57:28 10/02/2024 XR, chest, 2 view completed [facility] (Imaging) [address] [place] [address], [address], 10/08/2024 09:14:16 10/07/2024 rhythm strip, EKG* completed [facility] (Resp Services) [address] [place] [address], [address], 10/11/2024 09:32:01 02/10/2025 LDCT, chest, for lung cancer screening completed [address], [address], 02/11/2025 14:38:46 02/10/2025 LDCT, chest, for lung cancer screening completed [address], [address], 02/11/2025 13:58:57 Procedure Notes None recorded. Medical Equipment None Reported. Allergies Allergen ID Allergen Name Allergen Category Reaction Reaction Severity Criticality Documentation Date Start Date Code Code System Note Provider Name and Address Organization Details Recorded Time 979077 Cipro medicatio n rash Not available Not available 10/02/201859204 3 RxNorm Not Available Not Available Not Available Medications Name Sig Start Date Stop Date Status Note LastModified by Organization Details LastModified Time amantadin e HCl 100 mg tablet TAKE 1 TABLET BY MOUTH TWICE DAILY 01/27 completed Not Available Not Available Not Available quetiapin e 25 mg tablet 04/29 completed Not Available Not Available Not Available cyclobenz aprine 10 mg tablet Take 1 tablet 3 times a day by oral route as needed for 30 days. 03/16 completed Not Available Not Available Not Available amoxicill in 500 mg capsule TAKE 1 CAPSULE BY MOUTH TWICE DAILY FOR 10 DAYS 01/16 completed Not Available Not Available Not Available cefazolin 1 gram solution for injection 12/17 completed Not Available Not Available Not Available atorvasta tin 40 mg tablet Take 1 tablet by oral route. 05/14 completed Not Available Not Available Not Available methocarb nima 500 mg tablet use/take as directed 08/27 completed Not Available Not Available Not Available doxepin 50 mg capsule TAKE ONE CAPSULE BY MOUTH EVERY NIGHT AT BEDTIME 03/16 completed Not Available Not Available Not Available hydrocodo ne 7.5 mg-ibupro fen 200 mg tablet 10/02 completed Not Available Not Available Not Available promethaz ine-DM 6.25 mg-15 mg/5 mL oral syrup TAKE 5 ML BY MOUTH EVERY 4 TO 6 HOURS NEEDED FOR COUGH 11/27 completed Not Available Not Available Not Available prednison e 10 mg tablet 10/02 completed Not Available Not Available Not Available gabapenti n 600 mg tablet TAKE 1 TABLET BY MOUTH THREE TIMES DAILY FOR NERVE PAIN 06/05 completed Not Available Not Available Not Available doxycycli ne hyclate 100 mg capsule TAKE 1 CAPSULE BY MOUTH DAILY 12/17 completed Not Available Not Available Not Available ipratropi um 0.5 mg-albute rol 3 mg (2.5 mg base)/3 mL nebulizat ion soln INHALE 1 VIAL VIA NEBULIZE R FOUR TIMES DAILY active Not Available Not Available No t Available tizanidin e 2 mg tablet 10/02 completed Not Available Not Available Not Available divalproe x 250 mg tablet,de layed release TAKE 1 TABLET BY MOUTH TWICE DAILY active Not Available Not Available No t Available loperamid e 2 mg capsule 12/17 completed Not Available Not Available Not Available trazodone 50 mg tablet TAKE 1 TABLET BY MOUTH EVERY DAY IN THE EVENING 05/06 completed Not Available Not Available Not Available azithromy jd 250 mg tablet TAKE 2 TABLETS (500 MG) BY ORAL ROUTE ONCE DAILY FOR 1 DAY THEN 1 TABLET (250 MG) BY ORAL ROUTE ONCE DAILY FOR 4 DAYS 01/16 completed Not Available Not Available Not Available ibuprofen 800 mg tablet active Not Available Not Available Not Available alprazola m 1 mg tablet TAKE 1 TABLET BY MOUTH THREE TIMES DAILY FOR 7 DAYS NEEDED 02/22 completed Not Available Not Available Not Available hydrocodo ne 5 mg-acetam inophen 325 mg tablet TAKE 1 TABLET BY MOUTH EVERY 4 HOURS NEEDED FOR PAIN 01/27 completed Not Available Not Available Not Available flurbipro fen 0.03 % eye drops INSTILL 1 DROP TO SURGICAL EYE THREE TIMES DAILY STARTING AFTER SURGERY. CONTINUE FOR 3 WEEKS active Not Available Not Available No t Available ondansetr on HCl 8 mg tablet Take 1 tablet every 8 hours by oral route as needed for 10 days. 06/07 completed Not Available Not Available Not Available meloxicam 15 mg tablet active Not Available Not Available Not Available carbamaze pine ER 100 mg tablet,ex tended release,1 2 hr 02/21 completed Not Available Not Available Not Available lisinopri l 20 mg tablet TAKE 1 TABLET BY MOUTH DAILY 12/17 completed not taking, BP controll ed Not Available Not Available Not Available ondansetr on HCl 4 mg tablet TAKE 1 TABLET BY MOUTH EVERY 8 HOURS NEEDED FOR NASUEA 03/28 completed Not Available Not Available Not Available prednison e 20 mg tablet TAKE 2 TABLETS BY MOUTH DAILY FOR 5 DAYS 01/16 completed Not Available Not Available Not Available clonazepa m 0.5 mg tablet TAKE 1 TABLET BY MOUTH TWICE DAILY NEEDED 09/23 completed Not Available Not Available Not Available gabapenti n 400 mg capsule TAKE 1 CAPSULE BY MOUTH EVERY 8 HOURS 01/27 completed Not Available Not Available Not Available olanzapin e 5 mg tablet TAKE 1 TABLET BY MOUTH TWICE DAILY 06/05 completed Not Available Not Available Not Available methylpre dnisolone 4 mg tablet TAKE 1 TABLET BY MOUTH ONCE 08/27 completed Not Available Not Available Not Available hydroxyzi ne pamoate 50 mg capsule TAKE 1 CAPSULE BY MOUTH THREE TIMES DAILY 03/28 completed Not Available Not Available Not Available diphenoxy late-atro pine 2.5 mg-0.025 mg tablet 04/29 completed Not Available Not Available Not Available olanzapin e 10 mg tablet TAKE 1 TABLET BY MOUTH TWICE DAILY 11/27 completed Not Available Not Available Not Available prochlorp erazine maleate 10 mg tablet 10/02 completed Not Available Not Available Not Available sulfameth oxazole 800 mg-trimet hoprim 160 mg tablet 04/29 completed Not Available Not Available Not Available olanzapin e 2.5 mg tablet TAKE 1 TABLET BY MOUTH TWICE DAILY AT BEDTIME 09/23 completed Not Available Not Available Not Available peg-elect rolyte solution 420 gram oral solution 08/27 completed Not Available Not Available Not Available olanzapin e 7.5 mg tablet TAKE 1 TABLET BY MOUTH TWICE DAILY 03/15 completed Not Available Not Available Not Available aspirin 81 mg tablet,de layed release TAKE 1 TABLET BY MOUTH EVERY MORNING active Not Available Not Available No t Available tramadol 50 mg tablet TAKE 1 TABLET BY MOUTH EVERY 12 HOURS 03/15 completed Not Available Not Available Not Available amoxicill in 500 mg tablet TAKE 1 TABLET BY MOUTH TWICE DAILY FOR 7 DAYS 11/03 completed Not Available Not Available Not Available alprazola m 0.5 mg tablet TAKE 1 TABLET BY MOUTH TWICE DAILY FOR 4 DAYS 03/16 completed Not Available Not Available Not Available amoxicill in 875 mg tablet 04/29 completed Not Available Not Available Not Available famotidin e 20 mg tablet TAKE 1 TABLET BY MOUTH TWICE DAILY 12/17 completed on omperazo le, not taking Not Available Not Available Not Available amitripty line 25 mg tablet TAKE 1 TABLET BY MOUTH EVERY DAY AT BEDTIME 06/05 completed Not Available Not Available Not Available prednisol one acetate 1 % eye drops,estefany pension INSTILL 1 DROP INTO SURGICAL EYE THREE TIMES DAILY STARTING 4 HOURS AFTER SURGERY. CONTINUE FOR 3 WEEKS active Not Available Not Available No t Available lorazepam 0.5 mg tablet 01/27 completed Not Available Not Available Not Available trazodone 100 mg tablet TAKE 2 TABLETS BY MOUTH DAILY AT BEDTIME active Not Available Not Available No t Available amitripty line 10 mg tablet TAKE 2 TABLETS BY MOUTH EVERY DAY AT BEDTIME 03/15 completed Not Available Not Available Not Available baclofen 10 mg tablet 06/05 completed Not Available Not Available Not Available benzonata te 100 mg capsule TAKE 1 CAPSULE BY MOUTH THREE TIMES DAILY FOR 5 DAYS 01/02 completed Not Available Not Available Not Available cephalexi n 500 mg capsule TAKE 1 CAPSULE BY MOUTH EVERY 12 HOURS FOR 3 DAYS 01/27 completed Not Available Not Available Not Available pantopraz ole 40 mg tablet,de layed release 12/17 completed not taking, she has omeprazo le Not Available Not Available Not Available nortripty line 10 mg capsule 06/25 completed Not Available Not Available Not Available trazodone 150 mg tablet TAKE 1 TABLET BY MOUTH ONCE A DAY AT BEDTIME NEEDED 01/27 completed Not Available Not Available Not Available lisinopri l 10 mg tablet Take 1 tablet every day by oral route for 30 days. 04/29 completed Not Available Not Available Not Available divalproe x 125 mg tablet,de layed release TAKE 1 TABLET BY MOUTH TWICE DAILY 09/23 completed Not Available Not Available Not Available ibuprofen 400 mg tablet TAKE 1 TABLET BY MOUTH EVERY 6 TO 8 HOURS NEEDED 06/05 completed Not Available Not Available Not Available gabapenti n 300 mg capsule TAKE 1 CAPSULE BY MOUTH TWICE DAILY 03/15 completed 2 tabs 3x per day Not Available Not Available Not Available buspirone 7.5 mg tablet TAKE 1 TABLET BY MOUTH THREE TIMES DAILY 09/23 completed Not Available Not Available Not Available omeprazol e 20 mg capsule,d elayed release TAKE 1 CAPSULE BY MOUTH EVERY DAY active Not Available Not Available No t Available lisinopri l 20 mg-hydroc hlorothia zide 25 mg tablet Take 1 tablet every day by oral route for 90 days. 05/07 completed Not Available Not Available Not Available hydroxyzi ne HCl 25 mg tablet TAKE 1 TABLET BY MOUTH THREE TIMES DAILY 06/05 completed Not Available Not Available Not Available mirtazapi ne 15 mg tablet TAKE 1 TABLET BY MOUTH AT BEDTIME 03/16 completed Not Available Not Available Not Available ibuprofen 600 mg tablet TAKE 1 TABLET BY MOUTH TWICE DAILY NEEDED 11/27 completed Not Available Not Available Not Available polyethyl bethany glycol 3350 17 gram/dose oral powder MIX 1 CAPFUL IN 8 OUNCES OF FLUID AND DRINK ONCE DAILY NEEDED FOR CONSTIPA TION active Not Available Not Available No t Available oxycodone -acetamin ophen 7.5 mg-325 mg tablet Take 1 tablet twice a day by oral route for 28 days. 03/30 completed Not Available Not Available Not Available methylpre dnisolone 4 mg tablets in a dose pack FOLLOW PACKAGE DIRECTIO NS 03/15 completed Not Available Not Available Not Available lisinopri l 40 mg tablet TAKE ONE TABLET BY MOUTH EVERY DAY 12/17 completed Not Available Not Available Not Available ondansetr on 4 mg disintegr ating tablet DISSOLVE 1 TABLET ON THE TONGUE TWICE DAILY NEEDED 03/15 completed Not Available Not Available Not Available cefdinir 300 mg capsule 01/27 completed Not Available Not Available Not Available fluticaso ne propionat e 50 mcg/actua tion nasal spray,estefany pension [place] 1 spray every day by intranas al route. active Not Available Not Available No t Available olanzapin e 20 mg tablet TAKE 1 TABLET BY MOUTH DAILY active Not Available Not Available No t Available loratadin e 10 mg tablet TAKE 1 TABLET BY MOUTH EVERY DAY NEEDED 06/05 completed Not Available Not Available Not Available ipratropi um bromide 0.02 % solution for inhalatio n Inhale 2.5 mL every 6 hours by inhalati on route as needed. 2019 active Not Available Not Available Not Avai lable amoxicill in 875 mg-potass ium clavulana te 125 mg tablet TAKE 1 TABLET BY MOUTH EVERY 12 HOURS FOR 7 DAYS 01/16 completed Not Available Not Available Not Available amoxicill in 500 mg-potass ium clavulana te 125 mg tablet TAKE 1 TABLET BY MOUTH EVERY 12 HOURS WITH MEALS FOR 7 DAYS 06/05 completed Not Available Not Available Not Available Ventolin HFA 90 mcg/actua tion aerosol inhaler INHALE 2 PUFFS BY MOUTH EVERY 4 TO 6 HOURS NEEDED FOR SHORTNES S OF BREATH OR WHEEZING active Not Available Not Available No t Available oxycodone 5 mg tablet TAKE 1 TABLET BY MOUTH EVERY 4 HOURS NEEDED FOR PAIN 08/27 completed Not Available Not Available Not Available neomycin- polymyxin -hydrocor t 3.5 mg-10,000 unit/mL-1 % ear drops,estefany p 03/16 completed Not Available Not Available Not Available azithromy jd 500 mg tablet TAKE 1 TABLET BY MOUTH EVERY DAY 07/08 completed Not Available Not Available Not Available escitalop marisela 10 mg tablet TAKE 1 TABLET BY MOUTH DAILY 03/16 completed Not Available Not Available Not Available Vitamin D3 25 mcg (1,000 unit) capsule Take 1 capsule every day by oral route. active Not Available Not Available No t Available cyclobenz aprine 5 mg tablet TAKE 1 TABLET BY MOUTH THREE TIMES DAILY NEEDED FOR MUSCLE SPASMS 06/05 completed Not Available Not Available Not Available rosuvasta tin 5 mg tablet TAKE 1 TABLET BY MOUTH EVERY NIGHT AT BEDTIME 2024 active Not Available Not Available Not Avai lable escitalop marisela 5 mg tablet 06/25 completed Not Available Not Available Not Available mirtazapi ne 7.5 mg tablet TAKE 1 TABLET BY MOUTH AT BEDTIME FOR INSOMNIA 06/05 completed Not Available Not Available Not Available nitrofura ntoin monohydra te/macroc rystals 100 mg capsule TAKE 1 CAPSULE BY MOUTH TWICE DAILY 03/16 completed Not Available Not Available Not Available duloxetin e 30 mg capsule,d elayed release TAKE 1 CAPSULE BY MOUTH EVERY DAY 01/27 completed Not Available Not Available Not Available duloxetin e 60 mg capsule,d elayed release TAKE 1 CAPSULE BY MOUTH EVERY NIGHT 02/21 completed Not Available Not Available Not Available pregabali n 75 mg capsule active tapering off taking once daily Not Available Not Available Not Available pregabali n 100 mg capsule TAKE 1 CAPSULE BY MOUTH TWICE DAILY 02/06 completed Not Available Not Available Not Available pregabali n 150 mg capsule TAKE ONE CAPSULE BY MOUTH TWICE DAILY 06/06 completed Not Available Not Available Not Available magnesium Take 1 BID 06/05 completed Not Available Not Available Not Available sodium chloride 1 BID active Not Available Not Available Not Available Mucinex 06/25 completed Not Available Not Available Not Available quetiapin e 50 mg tablet TAKE 1 TABLET BY MOUTH EVERY DAY AT BEDTIME 12/17 completed patient stopped taking Not Available Not Available Not Available diclofena c 1 % topical gel active Not Available Not Available Not Available calcium 1,000 mg (as carbonate )-vitamin D3 20 mcg (800 unit) tablet Take 1 tablet every day by oral route for 90 days. 2023 active Not Available Not Available Not Avai lable Latuda 20 mg tablet TAKE 1 TABLET BY MOUTH EVERY DAY 02/21 completed made her feel bad Not Available Not Available Not Available Combivent Respimat 20 mcg-100 mcg/actua tion solution for inhalatio n INHALE 1 PUFF BY MOUTH TWICE DAILY active Not Available Not Available No t Available glucosami ne 750 mg-msm 125 mg-chondr oitin 600 mg-D3 1,000 unit tablet Take 1 tablet every day by oral route for 30 days. 2019 active Not Available Not Available Not Avai lable Anoro Ellipta 62.5 mcg-25 mcg/actua tion powder for inhalatio n INHALE 1 PUFF BY MOUTH ONCE DAILY. active Not Available Not Available No t Available Depend Fit-Flex Underwear active Not Available Not Available No t Available Ingrezza 40 mg capsule TAKE 1 CAPSULE BY MOUTH EVERY DAY 01/27 completed Not Available Not Available Not Available Shingrix (PF) 50 mcg/0.5 mL intramusc ular suspensio n, kit 08/30 completed Not Available Not Available Not Available BinaxNOW COVID-19 Ag Self Test kit TEST DIRECTED TODAY active Not Available Not Available No t Available Vitals Date Recorded Body height Body mass index (BMI) Body weight Heart rate Oxygen saturation Oxygen saturation in Arterial blood by Pulse oximetry Systolic blood pressure Diastolic blood pressure Provider Name and Address Organization Details Last Updated DateTime 4 167.64 cm 27.2 kg/m2 22164.6 2 g 90 /min 97 % 97 % 118 mm[Hg] 80 mm[Hg] Antonette Padron MA [facility] 4 11:12:04 Date Recorded Body height Body mass index (BMI) Body weight Heart rate Oxygen saturation Oxygen saturation in Arterial blood by Pulse oximetry Systolic blood pressure Diastolic blood pressure Provider Name and Address Organization Details Last Updated DateTime 4 167.64 cm 27.1 kg/m2 33830.5 2 g 108 /min 95 % 95 % 128 mm[Hg] 86 mm[Hg] Antonette Pdaron MA [facility] 4 11:11:54 Date Recorded Body height Body mass index (BMI) Body weight Heart rate Respiratory rate Oxygen saturation Oxygen saturation in Arterial blood by Pulse oximetry Systolic blood pressure Diastolic blood pressure Provider Name and Address Organization Details Last Updated DateTime 4 167.64 cm 28.1 kg/m2 45200.0 7 g 106 /min 18 /min 95 % 95 % 130 mm[Hg] 82 mm[Hg] Michelle Martinez MA [facility] 4 10:22:25 Date Recorded Body height Body mass index (BMI) Body weight Heart rate Systolic blood pressure Diastolic blood pressure Provider Name and Address Organization Details Last Updated DateTime 4 167.64 cm 25.4 kg/m2 33211.8 g 94 /min 112 mm[Hg] 72 mm[Hg] Antonette Padron MA [facility] 4 11:41:51 Date Recorded Oxygen saturation Oxygen saturation in Arterial blood by Pulse oximetry Provider Name and Address Organization Details Last Updated DateTime 08/27/2024 95 % 95 % MONO ALVARADO Attn: Accounting,[address] [place], [address], [facility] 08/27/2024 11:53:13 Date Recorded Body height Body mass index (BMI) Body weight Heart rate Oxygen saturation Oxygen saturation in Arterial blood by Pulse oximetry Systolic blood pressure Diastolic blood pressure Provider Name and Address Organization Details Last Updated DateTime 5 167.64 cm 24.7 kg/m2 53581.6 3 g 111 /min 99 % 99 % 129 mm[Hg] 84 mm[Hg] Antonette Padron MA [facility] 5 11:33:18 Social History Question Answer Notes LastModified by [employer] ion Details LastModified Time Tobacco Smoking Status Current Some Day Smoker Every once in a while. pt trying to quit. Bernardo Parra MA [facility], [facility] 06/07/2022 12:28:57 What Is Your Level Of Alcohol Consumption? Occasional Once A Week. Information not available 04/21/2021 What Is Your Level Of Caffeine Consumption? Occasional Information not available 09/28/2020 In The 14 Days Before Symptom Onset, Have You Had Close Contact With A Laboratory-confi rmed COVID-19 While That Case Was Ill? No Information not available 04/21/2021 In The 14 Days Before Symptom Onset, Have You Had Close Contact With A Person Who Is Under Investigation For COVID-19 While That Person Was Ill? No Information not available 04/21/2021 Have You Been To An Area Known To Be High Risk For COVID-19? No [facility] Information not available 03/15/2023 Are You Currently Employed? No [employer] Information not available 06/07/2022 Do You Or Have You Ever Used E-cigarettes Or Vape? Never Used Electronic Cigarettes Information not available 02/27/2020 Live Alone Or With Others? Alone Information not available 10/02/2018 Do You Sometimes Have To Miss Your Medical Appointments Due To Difficult Getting Transportation? No Information not available 06/07/2022 Do You Feel Unfairly Treated Due To Things Such As Race, Age, Gender, Disability Or Some Other Reason? No Information not available 06/07/2022 Do You Feel Physically And Emotionally Safe While Living At Home? Yes Information not available 06/07/2022 Do You Feel Physically And Emotionally Safe In Your Neighborhood Or Other Public Places? Yes Information not available 06/07/2022 What Was The Date Of Your Most Recent Tobacco Screening? 08/27/2024 Information not available 08/27/2024 What Is Your Relationship Status? Information not available 06/07/2022 Are You Sexually Active? No Information not available 06/07/2022 Do You Have Smoke And Carbon Monoxide Detectors In Your Home? Yes Information not available 06/07/2022 Are You Passively Exposed To Smoke? Yes Information not available 06/07/2022 Do You Or Have You Ever Used Smokeless Tobacco? Never Used Smokeless Tobacco Information not available 02/27/2020 How Much Tobacco Do You Smoke? 0.25 PPD [email or web address] Information not available 04/29/2019 General Stress Level High Information not available 09/28/2020 Do You Use Any Illicit Or Recreational Drugs? No Information not available 06/07/2022 Has Tobacco Cessation Counseling Been Provided? Yes Information not available 06/07/2022 On What Date Was Tobacco Cessation Counseling Provided? 08/27/2024 Information not available 08/27/2024 How Many Years Have You Smoked Tobacco? 30 Information not available 10/02/2018 Sex: Female Functional Status Question Answer Note LastModified by Organization D etails LastModified Time Are you able to care for yourself? Yes Information n ot available 10/02/2018 Mental Status None recorded. Family History Relationship Description Onset Age of this Age Resolved Age Notes LastModified by Organization Details LastModified Time Brother Alcohol abuse [email or web address] Not available 2017 12:07:16 Father Alcohol abuse [email or web address] Not available 2017 12:07:16 Mother Alcohol abuse bkaskama Not available 2017 12:07:16 Mother Coronary arterioscler osis bkaskama Not available 2017 12:07:36 Mother Heart disease bkaskama Not available 2017 12:07:46 Medical History Condition Response Coronary Artery Disease N Other N Atrial Fibrillation N High Blood Pressure N Depression Y COPD N Blood Clots N Anxiety Disorder Y Muscle, Joint, or Bone Problems N Acid Reflux (GERD) N Cancer Y Stroke N High Cholesterol N Liver Disease N Headaches N Kidney or Bladder Problems N Thyroid Problems N GI Problems N Skin Problems N Anemia N Heart Attack (PA) N Diabetes N Seizures/Epilepsy N Asthma N Allergies N Hepatitis N Heart Failure N Osteoporosis N Gynecological HistoryNo gynecological history recorded. Obstetrics History GPAL:G 0 P 0 0 0 0 Immunizations Vaccine Type Date Status Note Provider Nam e and Address Organization Details Recorded Time Hep A, adult 9 completed Antonette Padron [place], [place] [facility] 03/31/2022 11:10:45 Hep A, adult 9 completed Antonette Pad[place] [facility] 03/31/2022 11:11:18 Hep A, adult 0 completed Antonette Pad[place] [facility] 03/31/2022 11:11:22 Hep B, adult 9 nola Pad[place] [facility] 03/31/2022 11:11:43 Hep B, adult 9 nola Pad[place] [facility] 03/31/2022 11:11:53 Hep B, adult 0 completed Antonette Pad[place] [facility] 03/31/2022 11:12:06 Influenza, split virus, quadrivalent, preservative 3 completed Antonette Pad[place] [facility] 03/31/2022 11:12:34 Influenza, split virus, quadrivalent, preservative 4 completed Antonette Pad[place] [facility] 03/31/2022 11:12:41 Influenza, split virus, quadrivalent, preservative 5 completed Antonette Pad[place] [facility] 03/31/2022 11:13:03 Influenza, split virus, quadrivalent, preservative 6 completed Antonette Pad[place] [facility] 03/31/2022 11:13:14 Influenza, split virus, quadrivalent, preservative 7 completed Antonette [place] [facility] 03/31/2022 11:13:23 Influenza, split virus, quadrivalent, preservative 8 completed Antonette [place] [facility] 03/31/2022 11:13:30 Influenza, split virus, quadrivalent, preservative 9 completed Antonette [place] [facility] 03/31/2022 11:13:39 Influenza, split virus, quadrivalent, preservative 0 completed Antonette [place] [facility] 03/31/2022 11:13:51 Influenza, split virus, quadrivalent, preservative 1 completed Antonette [place] [facility] 03/31/2022 11:14:14 pneumococcal polysaccharide PPV23 8 completed [place]ette [place] [facility] 03/31/2022 11:14:36 pneumococcal polysaccharide PPV23 7 completed [place]ette [place] [facility] 03/31/2022 11:14:43 Td (adult) 5 completed [place]ette [place] [facility] 03/31/2022 11:15:18 zoster, unspecified formulation 9 completed [place] [facility] 03/31/2022 11:15:48 zoster, unspecified formulation 9 completed [place]ette [place] [facility] 03/31/2022 11:15:55 COVID-19, mRNA, LNP-S, PF, 100 mcg/0.5mL dose or 50 mcg/0.25mL dose 1 completed KOURTNEY [place], [place] [facility] 03/31/2022 11:16:14 COVID-19, mRNA, LNP-S, PF, 100 mcg/0.5mL dose or 50 mcg/0.25mL dose 1 [place] KOURTNEY [place] [facility] 03/31/2022 11:16:21 Pneumococcal conjugate PCV20, polysaccharide [id number] conjugate, adjuvant, PF 2 completed KOURTNEY Carrasco, [place] - [facility] 10/03/2022 12:56:51 Past Encounters Encounter ID Performer Location Encounter Start Date Encounter Closed Date Diagnosis/Indication Diagnosis SNOMED-CT Code Diagnosis ICD10 Code Diagnosis Note [id number] KVNG Kearney NP [facility] [address] [place] [address] 10/02/2018 11:57:26 10/02/2018 12:52:12 Dysuria 47200809 R30.0 -UA negavtive, culture sent Screening mammography 24 724221 Z12.31 -Order given for mammogram [id number] KVNG Kearney NP [facility] [address] [place] [address] 11/21/2018 16:31:20 11/21/2018 17:27:21 Acute sinusitis 41087349 J01.90 -Continue Augmentin- Continue OTC claritin, flonase-F/ u prn Urinary tr act infectious disease 64631931 N39.0 -Continue Augmentin- Increase water intake-F/u prn [id number] Nahomy Roger MD [facility] [address] [place] [address] 04/29/2019 11:23:27 05/06/2019 07:59:29 Chronic obstructive pulmonary disease 94030058 J44.9 Patient may be out of combivent. Refill sent. Multiple malignancy [address] Gifford suggested she get a CT scan of head.Douglas nt being followed by team of doctors for her ovarian cancer. [id number] MONO ALVARADO [facility] [address] [place] [address] 06/25/2019 11:57:40 06/26/2019 07:55:44 Gastroesophageal reflux disease 168793682 K21.9 refill Rhinitis 39259835 J00 Patient presents with 4 days of congestion and runny nose. drainage is yellow.She does say her throat has been a little itchy. SHe does not know if she has allergies. She denies fever, couch, sore throat, increased sputum production , ear ache. - try flonase once per day [id number] MONO ALVARADO [facility] [address] [place] [address] 07/29/2019 11:38:22 07/29/2019 15:43:32 Neuropathy 385023814 G62.9 Patient would like to see neurology about her neuropathy . Gabapentin is not working for her. balance exam normal. sensation slightly altered. propriocep tion intact in hands. - referral sent- continue meds as prescribed [id number] MONO ALVARADO [facility] [address] [place] [address] 08/30/2019 10:47:21 09/02/2019 08:46:37 Upper respiratory infection 32606164 J06.9 Patient started to feel under the weather but does not think she is sick yet. She will call this weekend if continues to get symptoms. Lungs clear on exam. afebrile. No congestion , rhinorrhea , turbinates non-edemat ous. No cough. - f/u as needed [id number] MONO ALVARADO [facility] [address] [place] [address] 11/25/2019 13:52:51 11/26/2019 10:01:10 Chronic obstructive pulmonary disease 04366051 J44.9 Patient may be out of combivent. Refill sent. Acid reflux 071370330 K2 1.9 refill Pain in left thumb [id number] 81957 280879 M79.645 patient fell a fwe weeks ago and continues to have pain on her thumb. She is moving it well, thumb is warm to touch. It looks slightly swollen but no bruising noticed Sinusitis 87619875 J32.9 patient has had one month of sinus pain and drainage. currently on chemo. No allergies to amoxicilli n. lungs sound clear. afebrile today. tender maxillary sinus. [id number] MONO ALVARADO [facility] [address] [place] [address] 02/27/2020 08:21:41 02/28/2020 11:03:16 Osteoarthritis 275104049 M19.90 patient continues to have pain despite tramadol that she takes for cancer pain. She would like refill of flexeril today. - ice/ heat joints- ibuprofen for pain prn- excercise- f/u prn [id number] OMNO ALVARADO [facility] [address] [place] [address] 03/30/2020 10:00:24 03/31/2020 10:13:46 Gastroesophageal reflux disease 255186754 K21.9 refill Neuropathy 981126759 G62 .9 Patient would like to be on first floor. She is currently on second floor at her apartments building requiring her to scale two flights of stairs. Each flight has about 12 steps. There is an elevator but it is often under maintenanc e and not working. Stairs make her tired and cause her pain due to chronic conditions . - paperwork filled out, I agree with her having a first floor apartment [id number] MONO ALVARADO [facility] [address] [place] [address] 04/08/2020 09:27:37 2020 11:35:46 Seasonal allergic rhinitis 203352490 J30.2 patient c/o congestion for two days. She has allergies and would like to have something to help. nasal spray is helping. - loratadine - continue nasal spray- f/u if not improving [id number] MONO ALVARADO [facility] [address] [place] [address] 05/07/2020 09:27:14 05/08/2020 10:11:15 Coronary atherosclerosis 975167683 I25.10 CTA revealed CAD and patient was started on atorvastst ain 40 mg in hospital. Tolerating medication well. will obtain labs. She has appointmen t with cardiologi st Dr Bush at [facility] next week. Discussed DASH diet Advised weight loss and diet is best way to control BP Advised 30 minutes of exercise minimum daily Advised tobacco, alcohol, caffeine all increase BP Advised goal for BP is <140/90 Hypertensive disorder 38 312957 I10 patient was taken off water pill in hospital and just left on lisinopril 20mg. Advised to check BP regularly with a goal of <140/90, if BP consistent ly >140/90, advised to contact clinic Discussed DASH diet Advised weight loss and diet is best way to control BP Advised 30 minutes of exercise minimum daily Advised tobacco, alcohol, caffeine all increase BP Advised goal for BP is <140/90 [id number] MONO ALVARADO [facility] [address] [place] [address] 05/15/2020 09:13:45 05/18/2020 14:17:09 Inguinal pain 326049064 R10.2 Patient with metastatic cancer currently on chemo presents with one year of right groin pain that is worse when walking. Patient does have appointmen t on monday with cardiologignacio laboy and she would like to wait to see him in person for exam. As she does have cancer it would be a good idea to go ahead and get a groin US as well as XR hip. She would like to wait to see cardiologi st. If pain gets worse she is advised to go to ER. [id number] MONO ALVARADO [facility] [address] [place] [address] 08/11/2020 10:06:54 08/12/2020 14:11:11 Neuropathy 028834435 G62.9 patient would like cart for her wheelchair so she can grocery shop. The [employer] will send over the order for this. Instabilit y of joint of right knee 9584999198 646191 M25.361 Patient is seen in pain management for her joint pain. She is having problems with knee stability on right side. She would like brace she can wear. [id number] MONO ALVARADO [facility] [address] [place] [address] 09/04/2020 16:08:01 09/07/2020 11:26:42 Fit denture 543172188 Z46.3 patient needs dentures fitted. Has had trouble getting appointmen t. Would like referral. [id number] MONO ALVARADO [facility] [address] [place] [address] 09/28/2020 10:26:25 09/29/2020 14:44:00 Cyst of kidney 818604627 N28.1 pain management got MRI at [facility] on September 01 and it shows a growing right kidney cyst. She notices her urine change in smell. Her new pain management took her off morphine 5mg and wants to try a new technique on her nerves to improve pain. - request records [id number] MONO ALVARADO [facility] [address] [place] [address] 10/28/2020 09:06:25 10/30/2020 20:38:47 Chronic obstructive pulmonary disease 49495527 J44.9 refill. patient with COPD needs new nebulizer machine. Nebulizer helps her much more than inhaler. Neuropathy 628979837 G62 .9 Patient will call back to get referral for nerve clinic [id number] MONO ALVRAADO [facility] [address] [place] [address] 01/20/2021 08:02:56 01/25/2021 13:33:49 Pain of right wrist [id number] 54295 M25.531 patient injured right wrist and requesting a brace. interview difficult due to circumfere ntial speech. Wrist is hurting her and will obtain xray to r/o fracture. - ice.- heat- ibuprofen prn- stretches [id number] MONO ALVARADO [facility] [address] [place] [address] 04/06/2021 13:39:22 04/06/2021 16:18:50 Gastroesophageal reflux disease 621192092 K21.9 refill [id number] MONO ALVARADO [facility] [address] [place] [address] 04/21/2021 10:10:20 04/21/2021 11:25:34 Neuropathy 794870291 G62.9 Patient with pmhxz of wrosening neuropathy . Does not feel her feet when walking. The only thing that was helping her with pain was TENS unit she was doing at her chiropract or office but they have closed since COVID. Would like one to have at home. Should be evaluated by neurology Smoker 41627263 F17.200 Patient states she smoked her last cigarette yesterday and is now doing lozanges. patient encouraged to keep up the good work. Allergic rhinitis 198963 04 J30.9 refill Malignant tumor of ovary 846371484 C56.9 continue following oncology. Having her chemo port flushed out tomorrow. [id number] MONO ALVARADO [facility] [address] [place] [address] 06/22/2021 08:02:48 07/05/2021 07:09:10 Dark stools 62194315 R19.5 Myriam is a 66 YO F pmhxz COPD, ocarian cancer s/p chemo presents for ER F/U Patient presents after episode of bloody stool. She was monitored and released home. Needs GI and colonoscop y. She states she feels great and has not had further episodes. - GI- colonoscop y- ER if futher episodes occur Gastroesop hageal reflux disease 320807525 K21.9 refill [id number] MONO ALVARADO [facility] [address] [place] [address] 10/18/2021 11:50:03 10/18/2021 16:43:00 Headache 24902089 R51.9 patient transferre d to hospital via emergency vehicle for disorienta tion, worst headache of her life. 12 cranial nerves in-tact. Suicidal thoughts 617718 6 R45.851 sent to hospital via emergency vehicle as she also felt a danger to self. no plan to harm self but states she has not been taking care of herself or eating. Tachycardia 5244397 R00. 0 follows cardiology [id number] MONO ALVARADO [facility] [address] [place] [address] 11/09/2021 15:35:29 11/10/2021 09:25:43 Chronic low back pain 136734344 M54.50 due to low back pain, arthritis, neuropathy letter was sent to branch office manager to allow Myriam in apartment with bath-tub. paper work filled out and returned to patient. Neuropathy 070310881 G62 .9 Patient with pmhxz of wrosening neuropathy . Does not feel her feet when walking. The only thing that was helping her with pain was TENS unit she was doing at her chiropract or office but they have closed since [facility]. Would like one to have at home. S [id number] MONO ALVARADO [facility] [address] [place] [address] 12/17/2021 15:27:43 12/20/2021 09:59:31 Neuropathy 415782104 G62.9 Patient with pmhxz of wrosening neuropathy . Does not feel her feet when walking. She often does not feel her feet. She would like a recliner to help her get out of chairs. Would like one to have at home. S Lumbago with sciatica 20 5382889 M54.40 Malignant tumor of lung 064478612 C34.90 small tumor recent found on left lugn after patient went in [facility] for pain. she is following ocnology adn next appointmen t is Jan 13. She has f/u CT scna in 2 months. Osteoporosis 65585372 M8 1.0 [id number] MONO ALVARADO [facility] [address] [place] [address] 02/22/2022 11:40:15 02/24/2022 06:59:39 Benzodiazepine withdrawal 208355709 F13.239 patient having mild withdrawal from xanax. last taken yesterday .5mg dose. She has been tapered off by psych, Stacey Calderon at [facility] . Patient was given instructio ns to go to [facility] for their withdrawal program. I called [employer] Staceydaiana rosenthal and left detailed (with patient permission ). HR and BP wnl at this time. [id number] MONO ALVARADO [facility] [address] [place] [address] 03/16/2022 14:12:36 03/17/2022 11:32:48 Bipolar disorder 43612465 F31.9 angela denies SI/HI - initiate zyprexa, was on 5mg bid in hospital- hydroxyzin e prn for anxiety- continue duloxetine - encouraged contacting her psychiatri st. she is unsure if she wants to continue with them. Anxiety [id number] F41.9 - needs to get back with psych Neuropathy [id number] G62 .9 Patient with pmhxz of wrosening neuropathy , likely chemo induced. Does not feel her feet when walking. I cant feel myself going to the bathroom. She denies losing control of her bladder. She often does not feel her feet. no weakness. able to walk. normal strength on exam hips, legs. - neurology- NERVE CONDUCTION S- gabapentin Gastroesop hageal reflux disease [id number] K21.9 refill Suicide at [facility] by drug overdose [id number] 29246 T50.902A attempted with trazadone 2 weeks ago. was hospitaliz ed for 10 days is psych unit. [id number] MONO ALVARADO [facility] [address] [place] [address] 03/21/2022 11:44:39 03/22/2022 10:33:48 Bipolar disorder 29371525 F31.9 angela denies SI/HI - initiate zyprexa, was on 5mg bid in hospital- hydroxyzin e prn for anxiety- continue duloxetine - encouraged contacting her psychiatri st. she is unsure if she wants to continue with them. Anxiety 93441603 F41.9 - needs to get back with psych Neuropathy 075969527 G62 .9 Patient with pmhxz of wrosening neuropathy , likely chemo induced. Does not feel her feet when walking. I cant feel myself going to the bathroom. She denies losing control of her bladder. She often does not feel her feet. no weakness. able to walk. normal strength on exam hips, legs. - neurology- NERVE CONDUCTION S- gabapentin Numbness o f saddle area [id number] R20.0 saddle anesthesia for weeks without loss of urianry/rosemarie wel control. refuses ER visit after explaining this is a red flag symptom and could be emergency. She agrees to stat CT. [id number] MONO ALVARADO [facility] [address] [place] [address] 03/28/2022 11:50:02 03/29/2022 10:35:56 Anxiety 00520398 F41.9 - needs to get back with psych, states she will call today- decrease duloxetine to 30mg- stop taking oxycodone and klonopins, states she no longer has any left. Bipolar disorder [id number] F31.9 patietn denies SI/HI. She stopped zyprexa - continue duloxetine - encouraged contacting her psychiatri st. Neuropathy 210610039 G62 .9 Patient with pmhxz of wrosening neuropathy , likely chemo induced. Does not feel her feet when walking. I cant feel myself going to the bathroom. She denies losing control of her bladder. She often does not feel her feet. no weakness. able to walk. normal strength on exam hips, legs. again refused ER. MRI scheduled tomorrow 10am. - neurology for May- NERVE CONDUCTION test April- gabapentin Numbness o f saddle area [id number] R20.0 saddle anesthesia for weeks without loss of urinary/rosemarie wel control. refuses ER visit after explaining this is a red flag symptom and could be emergency. She agrees to stat CT. Confusional state 102244 003 F44.89 patient able to talk and understand . She feels most confused when at home and doing things. she says I know I have to shower so I do but it's like going through the motions. She is able to recall most informatio n. Some disorienta tion on time frames. Patient is bj [id number] MONO ALVARADO [facility] [address] [place] [address] 04/14/2022 13:44:05 04/19/2022 10:31:57 History of cervical laminectomy [id number] 8697412 Z98.890 c4-c8 posterior laminectom y preformed 04/02/22 w/o complicati ons. She has PT/OT and doing well. c/o mod-severe pain in neck area and stiffness. pain medication was helping and would like refill while she does PT. On exam patient has regained sensation in leg and no longer twitching. scar on posterior cervical is heling well w/o any signs of infections . 2 weeks course of norco 5f/u with surgeon [id number] MONO ALVARADO [facility] [address] [facility] [place] [address] 05/06/2022 11:42:28 05/10/2022 10:11:31 Neuropathy [id number] G62.April 01 patient had emergency surgery for cervical 4/5, 5/6, 6/7 ,7/8 posterior laminoplas ty. no complicati ons from surgey and doing well. She continues doing therapy. tingling in legs and saddle anesthesia has improved. legs are no longer twitching. She saw Dr Foote who told her she had neuropathy . she recently completed EMG study. have not received results. patient would benefit from motorized scooter to use in and out of the home. she uses cane and walker but upper extremity neuropathy can make gripping difficult. Scooter will help with getting chores done in home. helping move items and groceries. can also allow her to go grocery shopping in the stores. She has trouble using public transporta tion. - continue following neurology, Dr Foote- NERVE CONDUCTION test done Monday, need results- gabapentin 300mg tid and flexeril [id number] MONO HOLLOWAY [facility] [address] [place] [address] 05/17/2022 13:50:59 05/18/2022 09:59:29 Upper respiratory infection 94898251 J06.9 dry cough, chest congestion , and wheezing x5 daysno improvemen t with OTC medication spt concerned for bronchitis h/o asthma and COPDusing inhalers and neb treatments PEx- mild expiratory wheezing LLL and LULc/w OTC medication discussed with pt typically wait until symptoms ongoing 7-10 days for abx use, due to pt's history will treat at 5 daystrial augmentin x7 days - Drink lots of fluids, water, gatorade. - Run a cool-mist humidifier in your room at night. - Get extra rest and do not over-exert yourself. - Do not mix multiple medication s with similar ingredient s (for instance Theraflu Non-drowsy and Tylenol Sinus). Doubling up on acetaminop hen and/or decongesta nts such as pseudephed rine can be dangerous. - Robitussin DM at bed time only (if cough keeps you awake) (and if not or on SSRI antidepres sants. [id number] MONO ALVARADO [facility] [address] [place] [address] 05/27/2022 12:31:52 05/31/2022 10:43:31 Panic attack [id number] F41.0 - short term tx for clonazepam , agrees to take it as prescribed .- f/u with javier foss- given number for counselors in region [id number] MONO ALVARADO [facility] [address] [place] [address] 06/07/2022 12:00:18 06/08/2022 13:02:01 Respiratory crackles 14071707 R09.89 left sided crackles on exam and fever over the weekend. Will start z-sherri and she is to get xray done. 99.2 temp today w/o medication s. Pulse 80, wnl. - tx outpatient - xray- f/u prn- ER if worsening Neuropathy 092772187 G62 .9 Patient with pmhxz of wrosening neuropathy ,again, since last visit. Does not feel her feet when walking. She denies losing control of her bladder. She often does not feel her feet. no weakness. able to walk.On exam decreased sensation, twitching of legs and change in gait. she refuses to go to ER. States she will call her neurologis t and surgeon. - neurology- NERVE CONDUCTION S- gabapentin Panic attack [id number] F 41.0 - short term tx for clonazepam finished and requests more.- f/u with javier foss on Jun 24- given number for counselors in region [id number] MONO ALVARADO [facility] [address] [place] [address] 07/08/2022 11:08:25 07/12/2022 09:36:38 Pain of left shoulder joint [id number] 8817633 M25.512 ROM limited on abduction. normal strength+n eer, + mcpherson. - rice- PT- xray- f/u 6 weeks [id number] MONO ALVARADO [facility] [address] [place] [address] 09/23/2022 12:36:57 09/26/2022 10:16:00 Upper respiratory infection 62901238 J06.9 Patient with COPD and 7 days of URI with cough, congestion , fatigue, increased sputum production .PEX: lungs b/l wheezing, mildly tachycardi c - hydrate and rest- ibuprofen or tylenol for body aches- z sherri as prescribed - f/u if not improving or worsening. - ER if trouble breathing, worsening chest pain, 103 fever without improvemen t with NSAID/tyle nol. COVID-19 721961349 U07.1 covid +pt notified [id number] MONO ALVARADO [facility] [address] [facility] [place] [address] 10/03/2022 10:55:45 10/04/2022 12:45:51 Administration of pneumococcal vaccine 68611171 Z23 [id number] MONO ALVARADO [facility] [address] [place] [address] 02/21/2023 13:48:19 02/21/2023 14:37:45 Syncope 459256318 R55 syncope without collapse. 6 episodes involving marijuana use.- labs- Called neurology and could not get through- r/o UTI- patient going to ER today 02/22/2023- ER if occurs againDDX: MARIJUANA RELATED, NEUROGENIC , CARDIAC, HYPOTENSIO N Dystonia 53316593 G24.[address] Edmonds, neurology 01/2023. note on file. he did not change any medication s. olanzapine she has taken for about 6 months. this could be causing her worsening dystoniawi ll start taper and had f/u with Angel Luis coming up Marijuana user 169821520 F12.90 smokes prnadvised quitting Cauda equi na syndrome with neurogenic urinary bladder 79281175 G83.4 patient again has had loss of sensation in groin, I can't feel my self pee or poop I advised ER she refused.I called neurologis t office, Dr Edmonds could not get ahold of themcalled patient at home and she state she talked to Laxmi and he told me just to take the gabapentin and that he would place referral for surgeon 02/22/2023 patient agrees to go to ER to R/O wrosening spinal compressio n and cuada equine [id number] [facility] [address] [place] [address] 03/15/2023 13:44:20 03/15/2023 14:39:15 Suicide attempt by drug overdose [id number] 84150 T50.902A Patient attempted suicide 03/06/2023 with muscle relaxers and amitriptyl ine. brain CT and labs were monitored and normal. she was released today 03/15/23att empted with trazadone last year 2021. was hospitaliz ed for 10 days is psych unit. - I called patient's psychiatri st Angel Luis Kidd at [facility] and left . I got a call back from office and states she has appointmen t 03/16/23.- Patient verbalizes want to live but the need to control leg movement- denies plan to harm self Tardive dyskinesia 86091 9007 G24.01 tardive dyskinesia v dystonia. has hx of cervical spine compressio n requiring surgery. Has seen neuro and want to refer her out. surgeon refuses further surgery.. Per WILMER they will prescribe something for patient sx. she stopped taking olanzapine . [id number] MONO ALVARADO [facility] [address] [place] [address] 06/05/2023 11:47:07 06/06/2023 16:14:27 Swelling of bilateral feet 396550699 M79.89 Acute nont raumatic kidney injury 4886504451 01848 N17.9 GERRI March 2023 after overdose attempt. re-check Neck pain 41547176 M54.2 refills of ibuprofen Cough 89588518 R05.9 occasional cough Suicide at [facility] by drug overdose [id number] 72202 T50.902A Patient attempted suicide 03/06/2023 and again 03/2023 . She is on a regiment that she is happy on. Today has NO SI/HI. She continues to follow psychiatry . Neuropathy 239156919 G62 .9 has f/u with urologist in June. Wants pregabalin filled that was last sent by finesse Almendarez on. Will decrease dose due to being on higher dose of olanzaepin e. - neurology- NERVE CONDUCTION S- gabapentin Smoker 75656348 F17.200 patient is smoking again. not interested in quitting at this time, [id number] MONO ALVARADO [facility] [address] [place] [address] 07/18/2023 11:48:08 07/20/2023 13:19:58 Osteoporosis 82888344 M81.0 due for screen Screening mammography 24 304405 Z12.31 due for screen Cervical myelopathy 2025 21466 G95.9 saw Power Alfredo finesse on on 07/17/23 at [place]. She was referred here by Dr Hahn who performed cervical laminectom y in March 2022 for myelopathy . 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 She was vacuum discs at L3-4, L4-5, L5-S1. She has calcified discs at those levels as well. She has evidence of spondylosi s in his lumbar spine. She will require physical therapy and facet injections with pain management . [id number] MONO ALVARADO [facility] [address] [place] [address] 11/27/2023 11:05:37 11/27/2023 12:04:40 Osteoporosis 89143509 M81.0 due for screensche duled dec 20 Chronic ob structive pulmonary disease 22165527 J44.9 will increase remaining days to 60mg prednisone xray clearadvis ed f/u with pulmobtian PFT currently on prednisone x 5 days and amox since 11/22/23 Smoker 27016900 F17.200 smoking 1ppd x 50 years>50 pack year smoking hxstill smokingsta rted smoking age 15 Adult heal th examination 889221662 Z00.00 - labs Prediabetes 092777929 R7 3.03 History of malignant neoplasm of ovary 500118847 Z85.43 IN REMISSIONh as not followed upgive number for oncology to call and schedule Cirrhosis of liver 007 K74.60 saw GI 2018 at [facility], Dr Darnell# 1: Compensate d cirrhosis, Child Reagan Class A. Normal liver enzymes and liver function on her last available labs. No evidence of portal HTN, no splenomega ly and no varices on her last EGD#2: Hx of chronic HCV infection, treated and achieved SVR in October 2016 [id number] MONO ALVARADO [facility] [address] [place] [address] 01/16/2024 10:45:07 01/16/2024 12:03:29 Diarrhea 15141455 R19.7 colonoscop y 2021 at [facility] twice last Monday and last History of polyp of colon 869503798 Z86.010 sessile serrated polyp on colonoscop y Osteopenia 810463243 M85 .80 discussed fosmoaxe will think about itcontinue calcium and vitamin D Chronic ob structive pulmonary disease 92650389 J44.9 continue following with pulmobtian PFTlungs are clear today [id number] MONO ALVARADO [facility] [address] [place] [address] 04/16/2024 10:17:56 04/16/2024 10:52:31 Neuropathy 674100331 G62.9 transporta tion form filled out for patient [id number] MONO ALVARADO [facility] [address] [place] [address] 08/27/2024 11:26:23 08/27/2024 11:59:01 Overweight 095323781 E66.3 Dysuria 84023621 R30.0 burning with urination and increased frequency x 2 weeks w/o fever, chills, nausea, vomiting or flank pain exam: abdomen is soft, non-tender to palpation, negative flank pain [id number] MONO ALVARADO [facility] [address] [facility] [address] 01/27/2025 11:26:37 01/27/2025 12:00:31 Adult health examination 309901418 Z00.00 - labs- LDCT scan- cleared for cataract surgery, cardiologi st cleared too- mammogram- f/u with Dr Mak- continue with psych, controlled on medication s Smoker 68578606 F17.200 smoking 1ppd x 50 yearsLDCT scan 2023 stable>50 pack year smoking hxstill smoking 1 cigarette per daystarted smoking age 15 Screening mammography 24 307879 Z12.31 due for screen Health Concerns Section Related Observation LastModified by Organization Detai ls LastModified Time None Recorded Concern Status LastModified by Organization Details LastModified Time None Recorded Advance Directives Directive None Recorded Payers Encounter Date Sequence Insurance Name Policy Number Policy Gordon Covered Member ID Gordon Member ID Guarantor Name 11/27/2023 1 [place] WHEN MEDICARE OR MEDICARE REPLACEMENT PRIMARY) Myriam Martinez [id number] Myriam Martinez 11/27/2023 3 [place] [facility] - FQ Myriam Martinez [id number] Myriam Martinez 01/16/2024 1 [place] OR MEDIC[place] REPLACEMENT PRIMARY) Myriam Martinez [id number] Myriam Martinez 01/16/2024 3 [place] [facility] - [place]Q Myriam Martinez [id number] Myriam Martinez 04/16/2024 1 [place] OR [place]IC[place] REPLACEMENT PRIMARY) Myriam Martinez [id number] Myriam Martinez 04/16/2024 3 [place] [facility] - [facility] Myriam Martinez [id number] Myriam Faustnes 08/27/2024 1 [place] Myriam Martinez [id number] Myriam Faustnes 08/27/2024 2 [facility] - DOS ON OR AFTER 2020 - DUAL ELIGIBLE (MEDICARE REPLACEMENT/AD VANTAGE - HMO) Myriam Michelle [id number] Myriam Michelle 01/27/2025 2 [facility] - DOS ON OR AFTER 21 (MEDICAID REPLACEMENT - HMO) Myriam Michelle [id number] Myriam Michelle 01/27/2025 1 [facility] (MEDICARE REPLACEMENT/AD VANTAGE - HMO) [id number] Myriam Martinez [id number] Myriam Michelle Notes Date Note Type Note Provider Name and Address Organization Details Recorded Time 11/27/2023 text/html Myriam is a [age] YO F 50+ SMOKING PACK CURRENT SMOKER pmhxz ovarian ca in remission, compensated liver cirrhosis, COPD, prediabetes here for f/u and f/u on cough Pt went to urgent care and given 40 mg prednisone x 5 days. she is on day 3/5. She took her two tablets this am. cough is starting to improve. oncology: has not followed up. My cancer is in the colon but controlled She has not f/u. agrees to call and shedule. confirmed she has number in office. smoking: age 15 1PPD x 50 years AND STILL SMOKING DEXA: SCHEDULED MONO ALVARADO Attn: Accounting,[address] [facility], [place], [address], [place] [facility] 12/05/2023 11:56:28 01/16/2024 text/html Myriam murphy ts for f/u She saw pulm yesterday and states he ordered new inhaler. She will schedule LDCT scan. She recently was seen in ER for pneumonia and treated with zpack and augmentin. She has developed diarrhea for about a week that she had a few times per day. diarrhea is watery and turned into black after taking pepto. She has colonoscopy 2020 showing sessile polyp. on chart review we talked about DEXA scan results. she declines tx and agrees with Calcium and vitamin D. She also has her biopsy scheduled for one month for her abnormal diagnostic mammogram. MONO ALVARADO Attn: Accounting,[address] [facility], [place], [address], [place] 01/16/2024 20:05:51 04/16/2024 text/html Myriam arrington ts for I had to cancel my [facility] visit because I did not have transportation. She needs form filled out and faxed. She will reschedule oncologist appointment. she states Yamil did not call her for f/u. MONO ALVARADO Attn: Accounting,[address] [facility], [place], [address], [facility] 04/16/2024 11:39:06 08/27/2024 text/html Myriam reyes for I think I have a uti. burning with urination and increased frequency x 2 weeks w/o fever, chills, nausea, vomiting or flank pain MONO ALVARADO Attn: Accounting,[address] [facility], [place], [address], [facility] 08/27/2024 11:57:39 01/27/2025 text/html Myriam is her e for wellvisit and sign surgery form for cataracts She saw appeals rn, Dr Whitaker and he cleared her for surgery. She has paper to sign today. She denies any cp, sob, palpitations. smoking 1 cigarette daily. due for mammogram and LDCT scan. MONO ALVARADO Attn: Accounting,[address] [facility], [place], [address], [place] 01/27/2025 11:54:16 OBGyn Episode No OBEpisode recorded.
--- OUTSIDE RECORDS SUMMARY | 2025-02-21 11:02 | XMS_ITS | Referral Summary ---
Author Organization [facility] Address [address] [place] [address] Care Team Providers Care Grid Inspector Name Role Phone Lesa Good MD PhD Unavailable + Robert Gifford MD Unavailable [phone] Nery Bassett MD Unavailable [phone] Mayur Zaragoza NP Unavailable [phone] Salima Emerson Unavailable [phone] Bharat Corona MD Unavailable [phone] Robert Gifford MD Unavailable Salima Emerson Primary Care Provider + Tamara Dia MD Unavailable Encounters Date Type Department Care Team Description 12/05/2024 Orders Only [facility] [address] [place] [address], [address] [place] [address] Jamey Jade MD Nicotine use (Primary Dx) from Last 3 Months Allergies Active Allergy Reactions Criticality Noted Date Comments Ciprofloxacin Rash Medium 01/25/2016 Medications OLANZapine (ZyPREXA) 20 mg tablet Take 1 tablet (20 mg total) by mouth nightly 3 Active traZODone (DESYREL) 150 mg tablet Take 1 tablet (150 mg total) by mouth nightly as needed 4 Active Ventolin HFA 90 mcg/actuation inhaler INHALE 2 PUFFS BY MOUTH EVERY 4 TO 6 HOURS NEEDED FOR SHORTNESS OF BREATH OR WHEEZING 4 Active umeclidinium-vi lanteroL (Anoro Ellipta) 62.5-25 mcg/actuation blister with device Inhale 1 puff daily 3 each 3 4 Active omeprazole (PriLOSEC) 20 mg capsule Take 1 capsule (20 mg total) by mouth daily 30 capsule [address] (CYMBALTA) 30 mg capsuleIndicati ons:Neuropathic Pain Take 1 capsule (30 mg total) by mouth 2 (two) times a day 60 capsule 11 4 05/31/20 25 Active Additional Information Patient not taking.Reported on 11/04/2024 gabapentin (NEURONTIN) 400 mg capsule Take 1 capsule (400 mg total) by mouth every 8 (eight) hours Active rosuvastatin (CRESTOR) 5 mg tablet Take 1 tablet (5 mg total) by mouth daily Active HYDROcodone-chantell taminophen (NORCO) 5-325 mg per tabletIndicatio ns:Pain Take 1 tablet by mouth every 4 (four) hours as needed for pain 20 tablet 4 Active Additional Information Patient not taking.Reported on 11/04/2024 polyethylene glycol (MIRALAX) 17 gram/dose bulk powderIndicatio ns:constipation Take 17 g by mouth daily as needed (constipation) 238 g 4 Active ihmyizaw-bdw-al ondroit-vit D3 750 mg-125 mg -600 mg tablet Take 1 tablet every day by oral route for 30 days. 0 Active bacteriostatic sodium chloride (sodium chloride bacteriostatic) 0.9 % injection 2 (two) times a day Active Ingrezza 40 mg capsule Take 1 tablet by mouth daily 4 Active LORazepam (ATIVAN) 0.5 mg tablet Take 1 tablet (0.5 mg total) by mouth every 6 (six) hours as needed for anxiety (For MRI -start with 1 pill and is 2nd as needed) for up to 2 doses 2 tablet 4 Active pregabalin (LYRICA) 75 mg capsule Take 1 capsule (75 mg total) by mouth 2 (two) times a day 60 capsule 5 4 05/03/20 25 Active Active Problems Problem Noted Date Diagnosed Date Lumbar stenosis with neurogenic claudication Chronic low back pain, unspe cified back pain laterality, unspecified whether sciatica present 06/10/2024 Acute back pain, unspecified back location, unspecified back pain laterality 05/26/2024 Mass of left breast 12/12/2023 Cervical myelopathy 07/18/2023 Suicide attempt by drug overdose 03/16/2023 Back pain associated with peripheral numbness Dystonia 02/21/2023 03/09/2023 Numbness 03/30/2022 UTI (urinary tract infection) 11/21/2021 Coronary artery disease invo lving cow[place] coronary artery of [place] heart without angina pectoris 07/29/2021 Chronic low back pain 09/26/2020 Spondylosis of lumbar region without myelopathy or radiculopathy 09/26/2020 Right hip pain 08/10/2020 Coronary atherosclerosis 05/07/2020 Chest pain 05/03/2020 Anxiety 10/02/2018 Asthma 10/02/2018 Chronic hepatitis 10/02/2018 Chronic obstructive lung disease 10/02/2018 Depressive disorder 10/02/2018 Disease of liver 10/02/2018 Environmental allergies 10/02/2018 Gastroesophageal reflux disease 10/02/2018 Multiple malignancies 10/02/2018 Osteoporosis 10/02/2018 Secondary malignant neoplasm of pelvis 8 Primary osteoarthritis involving multiple joints 07/04/2018 Generalized abdominal pain 06/14/2018 Assessment & Plan (06/14/2018 10:25 AM CDT): Pain is chronic and she has seen a pain specialist, Dr Gifford. She will return to him and if he is able to prescribe marijuana I do not believe it would interfere with her cancer treatment. Hypertensive disorder 03/09/2018 Preop cardiovascular exam 01/18/2018 Blood tests prior to treatment or procedure 12/21 Chondrocalcinosis of right knee 12/13/2017 Primary osteoarthritis of left shoulder 12/12/19 18 Primary osteoarthritis of right hip 12/12/2017 Primary osteoarthritis, right shoulder 8 Neuropathy, peripheral 10/02/2017 Assessment & Plan (06/14/2018 10:24 AM CDT): Neuropathy is stable, but grade 1-2. Continue gabapentin. Interested in medical marijuana which would be reasonable if she can access it. Drug-induced neutropenia 09/20/2017 Rash 08/17/2017 Acute stress disorder 08/17/2017 Hypomagnesemia 08/16/2017 Back pain, chronic 07/06/2017 Rotator cuff tear arthropathy 07/06/2017 Chemotherapy-induced nausea 06/01/2017 Ovarian cancer 06/01/2017 Cancer Staging:Clinical:FIGO Stage IIIC- Signed by Bharat Corona MD on 06/14/2018 Pathologic: Unsigned Clinical: Unsigned Assessment & Plan (06/14/2018 10:23 AM CDT): -PET scan to evaluate this seemingly-isolated lesion. -Consult with rad onc, but concern with location and bowel issues. -Consider Phase I trials, will discuss. -Consider return to Carboplatin with Doxil. -For today, continue with Cycle 4. H/O total hysterectomy with bilateral salpingo-oophorectomy (BSO) 05/19/2017 Cirrhosis of liver 05/03/2017 Overview (06/14/2018): Overview: EGD 05/2016 without varices Ultrasound 03/2017 no lesions Unspecified condition associ ated with female genital organs and menstrual cycle 05/03/2017 Overview (06/14/2018): Overview: Possible ovarian cancer, following with [facility] Hepatitis C virus 05/01/2017 Elevated tumor markers 05/01/2017 Mild intermittent asthma 04/27/2017 Seasonal allergic rhinitis due to pollen 017 Tobacco abuse 09/20/2016 Lumbar canal stenosis 01/01/2014 Spondylolisthesis of lumbar region 01/01/2014 Degenerative disc disease, lumbar 01/01/2014 Pericardial effusion Degenerative disc disease, thoracic Herniated cervical disc Immunizations Immunization Administration Dates Next Due Hep A / Hep B 03/12/2010,10/09/2009,08/24/2009 Hep A, Adult 03/12/2010,10/09/2009,08/24/2009 Hep B Vaccine 03/12/2010,10/09/2009,08/24/2009 Influenza, Quadrivalent, Spl it, Intramuscular 09/10/2021,08/25/2020,07/09/2019,09/10,07/31/2017,08/21/2016,10/13/2015 ,09/04/2014,07/29/2013 Influenza, Quadrivalent, Spl it, Preservative Free, Intramuscular 08/25/2020,07/09/2019,07/09/2019,09/11,09/11/2018,09/10/2018 Influenza, Trivalent, Adjuva nted, Intramuscular 07/31/2017 Influenza, Trivalent, IM (MDV) 09/20/2015,2013,07/29/2013 Influenza, Trivalent, Preser vative Free, Intramuscular 08/21/2016,10/13/2015 Influenza, Unspecified 08/20/2017,09/20/2015 Moderna SARS-CoV-2 Monovalen t Vaccination (12+ YRS) 05/18/2021,04/22/2021 Pneumococcal Conjugate Pcv20 10/03/2022 Pneumococcal Polysaccharide PPV23 05/02/2017, Td, Not Adsorbed 05/28/2015 ZOSTER Recombinant 11/08/2019, 9,08/27/2019,08/27 Zoster, unspecified 11/08/2019,08/27/2019 Social History Tobacco Use Types Packs/Day Years Used Date Smoking Tobacco: Every Day Cigarettes 0.4 55.3 Started: 1969 Smokeless Tobacco: Never Tobacco Cessation:Ready to Q uit: Not Asked; Counseling Given: Not Answered Comments:Patient few months ago cut down to few cigarettes a day. Alcohol Use Standard Drinks/Week Comments No 0 (1 standard drink = 0.6 oz pur e alcohol) denies [facility] Utilities Answer Date Recorded In the past 12 months has [employer], gas, oil, or water [employer] threatened to shut off services in your home? No 06/11/2024 Social Connection and Isolat ion Panel [NHANES] Answer Date Recorded In a typical week, how many times do you talk on the phone with family, friends, or neighbors? More than three times a week 06/11/2024 How often do you get togethe r with friends or relatives? Twice a week 06/11/2024 How often do you attend chur ch or zoroastrianism services? Never 06/11/2024 Do you belong to any clubs o r organizations such as religion groups, unions, fraternal or athletic groups, or school groups? No 06/11/2024 How often do you attend meet ings of the clubs or organizations you belong to? Never 06/11/2024 Are you , , di vorced, , never , or living with a partner? 06/11/2024 AUDIT-C Answer Date Recorded Q1: How often do you have a drink containing alcohol? Never 11/04/2024 Q2: How many drinks containi ng alcohol do you have on a typical day when you are drinking? Patient does not drink Q3: How often do you have si x or more drinks on one occasion? Never 11/04/2024 Overall Financial Resource Strain (CARDIA) Answe r Date Recorded How hard is it for you to pa y for the very basics like food, housing, medical care, and heating? Not hard at all 06/11/2024 Hunger Vital Sign Answer Date Recorded Within the past 12 months, y ou worried that your food would run out before you got the money to buy more. Never true 06/11/20 24 Within the past 12 months, t he food you bought just didn't last and you didn't have money to get more. Never true 06/11/2024 PRAPARE - Transportation Answer Date Re corded In the past 12 months, has l ack of transportation kept you from medical appointments or from getting medications? No 05/21 In the past 12 months, has l ack of transportation kept you from meetings, work, or from getting things needed for daily living? No 06/11/2024 Housing Stability Vital Sign Answer Jason e Recorded In the last 12 months, was t here a time when you were not able to pay the mortgage or rent on time? No 03/31/2022 Number of Places Lived in the Last Year Not on f ile 03/31/2022 In the last 12 months, was t here a time when you did not have a steady place to sleep or slept in a correction (including now)? No 03/31/2022 Housing Stability Vital Sign Answer Jason e Recorded In the last 12 months, was t here a time when you were not able to pay the mortgage or rent on time? No 06/11/2024 In the past 12 months, how m any times have you moved where you were living? 0 06/11/2024 At any time in the past 12 m [facility], were you homeless or living in a correction (including now)? No 06/11/2024 Personal Safety Answer Date Recorded Have you ever been in or are you currently in a harmful physical or emotional relationship or is someone making you feel afraid or unsafe? 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 WORKER Gender Identity Not on file Sexual Orientation Not on file Occupation Industry Job Start Date Job End Date Disability Not on file Not on file Not on file Last Filed Vital Signs Vital Sign Reading Time Taken Comments Blood Pressure 122/83 09/16/2024 10:49 AM CDT Pulse 90 11/04/2024 10:18 AM DRUM WORKER Temperature 36.8 C (98.2 F) 06/14/2024 7:40 AM CDT Respiratory Rate 18 11/04/2024 10:18 AM DRUM WORKER Oxygen Saturation 95% 11/04/2024 10:18 AM DRUM WORKER Inhaled Oxygen Concentration - - Weight 68.9 kg (152 lb) 11/04/2024 10:18 AM DRUM WORKER Height 167.6 cm (5' 6 ) 11/04/2024 10:18 AM DRUM WORKER Body Mass Index 24.53 11/04/2024 10:18 AM DRUM WORKER Plan of Treatment Not on file Goals Goal Patient Goal Type Associated Problems Recent Progress Patient-Stated? Author CCM Chronic Pain Care Plan Chronic Care Management No change(09/24 9:56 AM DRUM WORKER) No Concepción Canas, RN Note: Problem: Chronic Pain Goals: 1. Minimize further functional decline 2. Maximize quality of life 3. Control pain Strategies: - Activity/exercise program recommendation - Conservative stepwise pain medicine strategy with multi-disciplinary approach - Recommend healthy lifestyle strategies and compensatory methods as needed Medical Devices Implanted Type Area Child Protection Specialist Device Identifier Shelf Expiration Date Model / Serial / Lot 12 Mm Plate Implanted:Qty: 4 on 04/01/2022 by Esperanza Vernon Ud, MD at [facility] [employer] [id number] / / [employer] Centerpiece 2.6mm 5mm Self Tap Stab Grab Color Coded Spine Screw [id number] - [id number] Implanted:Qty: 12 on 04/01/2022 by Esperanza Vernon Ud, MD at [facility] [employer] [id number] / / [employer] Centerpiece 2.6mm 7mm Self Tap Stab Grab Color Coded Spine Screw [id number] - [id number] Implanted:Qty: 8 on 04/01/2022 by Esperanza Vernon Ud, MD at [facility] [employer] [id number] / / [employer] Graft Bone Strut Cortical Fd Centerpiece 12mm [id number] - [id number] - [id number] Implanted:Qty: 1 on 04/01/2022 by Esperanza Vernon Ud, MD at [facility] [employer] 06/15/2026 [id number] / [id number] / [employer] Graft Bone Strut Cortical Fd Centerpiece 12mm [id number] - [id number] - [id number] Implanted:Qty: 1 on 04/01/2022 by Esperanza Vernon Ud, MD at [facility] [employer] 06/15/2026 [id number] / [id number] / [employer] Graft Bone Strut Cortical Fd Centerpiece 12mm [id number] - [id number] - [id number] Implanted:Qty: 1 on 04/01/2022 by Esperanza Vernon Ud, MD at [facility] [employer] 08/31/2026 [id number] / [id number] / [employer] Graft Bone Strut Cortical Fd Centerpiece 12mm [id number] - [id number] - [id number] Implanted:Qty: 1 on 04/01/2022 by Esperanza Vernon Ud, MD at [facility] [employer] 06/15/2026 [id number] / [id number] / [employer] Eviva 13cm Identifier Biopsy Site Engiw-[id number] - [id number] Implanted:Qty: 1 on 02/08/2024 by Hitesh Padilla MD at [facility] Left: Breast [employer] [id number] [facility]11/20[facility] / / [id number] Procedures Procedure Name Priority Date/Time Associated Diagnosis Comments DEXA AXIAL SKELETON BONE DENSITY 1 OR MORE SITES Schedule Routine, Read Routine (OP Routine) 10/04/2024 10:20 AM DRUM WORKER Age-related osteoporosis without current pathological fracture from Last 3 Months or Most Recently Relevant to Health Maintenance Results * DEXA Axial Skeleton Bone Density Multi Site (10/04/2024 10:20 AM DRUM WORKER) Anatomical Region Laterality Modality Body N/A Mammography 10/04/2024 5:18 PM DRUM WORKER Narrative 10/04/2024 5:19 PM DRUM WORKER EXAM DESCRIPTION: DEXA AXIAL SKELETON BONE DENSITY 1 OR MORE SITES REASON FOR STUDY: 69 y/o year old F with given history of: osteoporosis Child Protection Specialist/Model: Paratek A (S/N [id number]) CLINICAL INFORMATION: Current height: 65 inches Maximum height: 66 inches Weight: 157 pounds Risk factors: Postmenopausal, adult fracture, smoking history, rheumatoid arthritis, cancer, emphysema or asthma COMPARISON: 07/27/2016 Dissimilar scan types or analysis methods precludes assessment for calculating a significant change. FINDINGS: AP LUMBAR SPINE L1-L4: Total BMD is 1.058 g/cm2 T-score is 0.1 LEFT HIP: Total BMD is 0.734 g/cm2 T-score is -1.7 Femoral neck BMD is 0.716 g/cm2 T-score is -1.2 FRAX: 10 year risk for a major osteoporotic fracture is 19 %, 10 year risk for a hip fracture is 3.6 % IMPRESSION: Low Bone Mass. REFERENCE: Bone mineral density: T-Score: Normal (T-score above or = -1.0) Low bone mass (T-score between -1.0 and -2.5) replaces the previously used term osteopenia Osteoporosis (T-score = or below -2.5) Z-Score: Within the expected range for age (Z-score above -2.0) Below the expected range for age (Z-score is -2.0 or below) Please see below follow up recommendations. Medical evaluation for secondary causes of low bone mineral density may be appropriate. FRAX is a World Health Organization validated fracture risk assessment tool that calculates a person's 10 year probability of a major osteoporosis related fracture and hip fracture. According to the National Osteoporosis Foundation guidelines, postmenopausal women and men age 50 or older with low bone mass and a 10 year probability of a major osteoporosis related fracture = or greater than 20% or a 10 year probability of a hip fracture = or greater than 3% should be considered for pharmacological treatment for the prevention of osteoporosis. For further information, including treatment recommendations, please refer to the 2019 ISCD Official Positions (http://www.iscd.org) and the NOF's Clinician's Guide to Prevention and Treatment of Osteoporosis (http://www.nof.org/professionals/clinical-guidelines) THIS IS AN ELECTRONICALLY VERIFIED FINAL REPORT 10/04/2024 5:19 PM - Electronically signed by Robert Hwang M.D. MF: ANDRADE Report ID: [id number] Reading Location: [id number] Procedure Note Robert Hwang MD - 10/04/2024 EXAM DESCRIPTION: DEXA AXIAL SKELETON BONE DENSITY 1 OR MORE SITES REASON FOR STUDY: 69 y/o year old F with given history of:osteoporosis Child Protection Specialist/Model: Paratek A (S/N [id number]) CLINICAL INFORMATION: Current height: 65 inches Maximum height: 66 inches Weight: 157 pounds Risk factors: Postmenopausal, adult fracture, smoking history, rheumatoid arthritis, cancer, emphysema or asthma COMPARISON: 07/27/2016 Dissimilar scan types or analysis methods precludes assessment for calculating a significant change. FINDINGS: AP LUMBAR SPINE L1-L4: Total BMD is 1.058 g/cm2 T-score is 0.1 LEFT HIP: Total BMD is 0.734 g/cm2 T-score is -1.7 Femoral neck BMD is 0.716 g/cm2 T-score is -1.2 FRAX: 10 year risk for a major osteoporotic fracture is 19 %, 10 year risk for ahip fracture is 3.6 % IMPRESSION: Low Bone Mass. REFERENCE: Bone mineral density: T-Score: Normal (T-score above or = -1.0) Low bone mass (T-score between -1.0 and -2.5) replaces thepreviously used term osteopenia Osteoporosis (T-score = or below -2.5) Z-Score: Within the expected range for age (Z-score above -2.0) Below the expected range for age (Z-score is -2.0 or below) Please see below follow up recommendations. Medical evaluation forsecondary causes of low bone mineral density may be appropriate. FRAX is a World Health Organization validated fracture risk assessmenttool that calculates a person's 10 year probability of a major osteoporosisrelated fracture and hip fracture. According to the National OsteoporosisFoundation guidelines, postmenopausal women and men age 50 or older with low bonemass and a 10 year probability of a major osteoporosis related fracture = or greater than 20% or a 10 year probability of a hip fracture = or greaterthan 3% should be considered for pharmacological treatment for the preventionof osteoporosis. For further information, including treatment recommendations, please referto the 2019 ISCD Official Positions (http://www.iscd.org) and the NOF's Clinician's Guide to Prevention and Treatment of Osteoporosis (http://www.nof.org/professionals/clinical-guidelines) THIS IS AN ELECTRONICALLY VERIFIED FINAL REPORT 10/04/2024 5:19 PM - Electronically signed by Robert Hwang M.D. MF: ANDRADE Report ID: [id number] Reading Location: [place] [address] Jamey Jade MD IMG DXA PROCEDURES Final Result from Last 3 Months or Most Recently Relevant to Health Maintenance Insurance [address] [place] [address] [employer] MEDICARE [facility] MEDICARE ADVANTAGE * Guarantor: Myriam Martinez Account Type Relation to Patient Date of Phone Billing Address Personal/Family Self [address] [place] [address] MEDICARE IDPA * Guarantor: Myriam Martinez Account Type Relation to Patient Date of Phone Billing Address Personal/Family Self 1955 [address] [facility] [address] [place] [address] [facility] MEDICARE ADVANTAGE IDPA Advance Directives For more information, please contact: [phone] Documents on File Type Date Recorded Patient 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 Boring Machine Operator Expl anation ADVANCE DIRECTIVE 11/26/2020 8:52 AM Power of Technical Sales Consultant-Financial/Medica l ADVANCE DIRECTIVE 05/30/2019 9:04 AM ADVANCE DIRECTIVE 05/02/2019 10:17 AM ADVA NCE DIRECTIVE ADVANCE DIRECTIVE 09/26/2016 12:00 AM EMILIANO R OF DINKEY OPERATOR SLATE FINANCIAL/MEDICAL ADVANCE DIRECTIVE 03/21/2019 2:54 PM ADVANC E DIRECTIVE * LIMITED - No CPR (Latest Code Status on File) Date Activated Date Inactivated Comments 06/10/2024 8:40 PM 06/14/2024 7:14 PM Question Answer Comments Provide aggressive medical m anagement before a full cardiopulmonary arrest occurs. Use antibiotics, IV Fluids, and medical treatment unless specifically selected below: No intubation * Full Code Date Activated Date Inactivated Comments 05/26/2024 2:41 PM 05/31/2024 7:18 PM * Full Code Date Activated Date Inactivated Comments 04/01/2022 7:11 PM 04/06/2022 12:12 AM * Full Code Date Activated Date Inactivated Comments 03/31/2022 2:53 AM 03/31/2022 3:42 AM * LIMITED - No CPR Date Activated Date Inactivated Comments 12/09/2021 1:45 PM 12/10/2021 8:09 PM Question Answer Comments Provide aggressive medical m anagement before a full cardiopulmonary arrest occurs. Use antibiotics, IV Fluids, and medical treatment unless specifically selected below: No intubation Care Teams Grid Inspector Relationship Specialty Start Date End Date Salima Emerson PA [address] [place] [address] PCP - General Physician Plc Programmer 12/26/23 Lesa Good MD PhD [address] [facility] [address] [place] [address] Radiation Oncologist Radiation Oncology 10/17/18 Robert Gifford MD [address] [facility] [address] [place] [address] Referring Physician Provider Service Representative 12/21/18 Nery Bassett MD [address] [place] [address] Referring Physician Obstetrics and Gynecology 04/27/17 Mayur Zaargoza, [facility] [address] [place] [address] Nurse Practitioner 10/24/19 Salima Emerson PA [address] [place] [address] Physician Plc Programmer 10/24/19 Bharat Corona MD [address] [place] [address] Consulting Physician Gynecologic Oncology 07/16/20 Robert Gifford MD [address] [place] [address] Referring Physician Provider Service Representative 12/31/20 Tamara Dia MD [address] [place] [address] Consulting Physician Pain Management 01/23/24
--- OUTSIDE RECORDS SUMMARY | 2025-02-21 11:02 | XMS_ITS ---
Author Organization [facility] Address [address] [place] [address] Care Team Providers Care Seasoner Hand Name Role Phone Lesa Good MD PhD Unavailable + Robert Gifford MD Unavailable [phone] Nery Bassett MD Unavailable [phone] Mayur Zaragoza NP Unavailable [phone] Salima Eemrson Unavailable [phone] Bharat Corona MD Unavailable [phone] Robert Gifford MD Unavailable Salima Emerson Primary Care Provider + Tamara Dia MD Unavailable Active Problems Problem Noted Date Diagnosed Date [...] infection) 11/21/2021 Coronary artery disease invo lving [place] coronary artery of [place] heart without angina pectoris 07/29/2021 Chronic low [...] (06/14/2018): Overview: Possible ovarian cancer, following with [facility] Hepatitis C virus 05/01/2017 Elevated tumor markers 05/01/2017 Mild intermittent asthma 04/27/2017 Seasonal allergic rhinitis due to pollen 017 Tobacco abuse 09/20/2016 Lumbar canal stenosis 01/01/2014 Spondylolisthesis of lumbar region 01/01/2014 Degenerative disc disease, lumbar 01/01/2014 Pericardial effusion Degenerative disc disease, thoracic Herniated cervical disc Current Treatment and Therapy Plans No current plan information found. Past Treatment and Therapy Plans Line Care Plan Name Start Date Discontinue Date Treatment Medications Discontinue Reason Plan Provider VENOUS SAMPLING FROM IVAD 05/28/2019 01/30/2024 No medications scheduled. Automatic discontinuation of dormant plans Bharat Corona MD Oncology Chemotherapy Treatment Plan Name Start Date Discontinue Date Treatment Medications Discontinue Reason Plan Provider Cycles Bevacizumab 21 Day Cycles - SLOT AMBASSADOR--NOW 28 DAY CYCLES 01/23/2020 03/31/2021 bevacizumab (AVASTIN)bevacizu mab (AVASTIN) IVPB Therapy Complete Bharat Corona MD 10 of 11 cycles started PACLItaxel / Bevacizumab 21 Day Cycles - SLOT AMBASSADOR 11/08/20 18 01/02/2020 bevacizumab (AVASTIN)bevacizu mab (AVASTIN) IVPBPACLitaxel (TAXOL)PACLItaxel (TAXOL) IVPB in 250 mLPACLItaxel (TAXOL) IVPB in 500 mL Therapy Complete Bharat Corona MD 19 of 19 cycles started Topotecan Weekly / Bevacizumab Every 2 Weeks - SLOT AMBASSADOR 03/22/2018 10/03/2018 bevacizumab (AVASTIN)bevacizu mab (AVASTIN) IVPBtopotecan (HYCAMTIN)topotec an (HYCAMTIN) IVPB Stable Disease Bharat Corona MD 4 of 5 cycles started Oncology Supportive Care Plan Name Start Date Discontinue Date Treatment Medications Discontinue Reason Plan Provider IV MAINTENANCE THERAPY PLAN 05/02/2019 01/30/2024 No medications scheduled. Automatic discontinuation of dormant plans Bharat Corona MD IV MAINTENANCE THERAPY PLAN 04/26/2018 05/02/2019 No medications scheduled. Therapy Complete Bharat Corona MD Specialty Infusion Treatment Plan Name Start Date Discontinue Date Treatment Medications Discontinue Reason Plan Provider VENOUS SAMPLING FROM IVAD & VENOUS SAMPLING FROM IVAD 05/28/2019 09/27/2023 No medications scheduled. Automatic discontinuation of dormant plans Bharat Corona MD Radiation Treatments * Course C1- LLQ mass 08/02/2018 - 09/10/2018 Treatment Period Energy Fraction Dose Fractions Total Dose Plans Planned LT Pelvis 08/02/2018 - 09/10/2018 200 25 / 5,000 Reference Points Delivered Left Pelvis 08/02/2018 - 09/10/2018 5,000 Lifetime Dose Tracking * Chemical Lifetime Dose Automatic Entry Manual Entr y Fluoro Time 1.718 minutes 1.718 minutes 0 minutes Air kerma at the reference point (Ka,r) 27.36 mGy 2 7.36 mGy 0 mGy DLP 7,615 mGycm 7,615 mGycm 0 mGycm
--- OUTSIDE RECORDS SUMMARY | 2025-02-21 11:02 | XMS_ITS ---
Author Organization [facility] Address [facility] [facility] [address] [place] [address] Care Team Providers Care Candy Maker Name Role Phone Salima Emerson PA-C Primary Care Provider Mayur Johnson Unavailable [phone] REASON FOR VISIT 1 month f/u Social History Sex Assigned At : Social History Observation Description Sex Assigned At Female Encounters Encounter Location Date Provider Diagnosis [facility] [place] [id number] [facility] [address] [place] [address] 02/07/2025 Mayur Zaragoza Plan Of Treatment Next Appt Details Provider Name:Mayur avila, 03/11/2025 11:15:00 AM, [address], [facility] [address], [place], [address], Progress Notes * NORMA YOUNGBLOODDOB: [birth year] (69 yo F)Acc No.[id number]:02/07/2025 Patient: Gregorio NORMA INFANTE Provider: ROSA STAUFFER :1955 A ge:69 Y S ex:Female Date:02/07/2025 Address:[address] [place] [address], [address], [place], [place] Pcp:Salima Emerson PA-C Subjective: * Chief Complaints: * 1 . 1 month f/u. * Medical History: Objective: * Vitals: Assessment: Plan: * Treatment: * Billing Information: * Visit Code: * Procedure Codes: * Electronic signature of ROSA Malcolm on 02/21/2025 at 11:02 AM CDT Sign off status: Pending * Provider: ROSA STAUFFER Date: 0 02/07/2025 Generated for Anand hay/Familia/Leny on: 0 02/21/2025 11:02 AM CDT
--- OUTSIDE RECORDS SUMMARY | 2025-02-21 11:02 | XMS_ITS | Encounter Summary ---
Author Organization [facility] Address [address] [place] [address] Care Team Providers Care Synthetic Resin Operator Name Role Phone Geoffrey Forrest MD Unavailable [phone] Lesa Good MD PhD Unavailable + Robert Gifford MD Unavailable + [phone] Nery Bassett MD Unavailable [phone] Mayur Zaragoza NP Unavailable [phone] Salima Emerson Unavailable [phone] Nahomy Roger MD Primary Care Provider + [phone] Bharat Corona MD Unavailable [phone] Unknown, Notinfile Unavailable Unavailable Robert Gifford MD Unavailable + [phone] Salima Emerson Primary Care Provider + Tamara Dia MD Primary Care Provider [phone] Salima Emerson Primary Care Provider + Tamara Dia MD Unavailable Reason for Visit * Reason Onset Date Comments Mailed CD 10/02/2020 Encounter Details Date Type Department Care Team (Late st Contact Info) Description 10/02/2020 Telephone [facility] Advanced Medicine [address] [facility] [address] [place] [address] Galinod Bassett MD [address] [place] [address] Mailed CD Social History Tobacco Use Types Packs/Day Years Used Date Smoking Tobacco: Every Day Smokeless Tobacco: Current Alcohol Use Standard Drinks/Week Comments No 0 (1 standard drink = 0.6 oz pur e alcohol) denies Comments No Sex and Gender Information Value Date Recorded Sex Assigned at Not on file Legal Sex Female 5:05 AM SCREW MACHINE SET UP OPERATOR Gender Identity Not on file Sexual Orientation Not on file documented as of this encounter Plan of Treatment Not on file documented as of this encounter Goals Goal Patient Goal Type Associated Problems Recent Progress Patient-Stated? Author CCM Chronic Pain Care Plan Chronic Care Management No change(09/24 9:56 AM SCREW MACHINE SET UP OPERATOR) No Concepción Canas, RN Note: Problem: Chronic Pain Goals: 1. Minimize further functional decline 2. Maximize quality of life 3. Control pain Strategies: - Activity/exercise program recommendation - Conservative stepwise pain medicine strategy with multi-disciplinary approach - Recommend healthy lifestyle strategies and compensatory methods as needed documented as of this encounter Visit Diagnoses Not on filedocumented in this encounter Additional Health Concerns Infection Onset Date Last Indicated Resolved Time COVID: Suspected 06/26/2022 06/26/2022 06/26/2022 6:52 PM CDT COVID: Suspected 03/22/2023 03/22/2023 03/22/2023 8:17 AM CDT COVID: Suspected 01/07/2024 01/07/2024 01/07/2024 12:50 PM SCREW MACHINE SET UP OPERATOR COVID19 01/07/2024 01/07/2024 01/17/2024 3:05 AM SCREW MACHINE SET UP OPERATOR COVID: Recovered Comment:Added based on recent COVID infection. 01/17/2024 01/22/2024 04/16/2024 3:05 AM C DT documented as of this encounter Care Teams Synthetic Resin Operator Relationship Specialty Start Date End Date Nahomy Roger MD [address] [place] [address] PCP - General Family Medicine 01/02/20 05/18/21 Salima Emerson PA [address] [place] [address] PCP - General Physician Playground Official 05/19/21 08/21/23 Tamara Dia MD [address] [facility], [address] [address] PCP - General Pain Management 08/22/23 12/25/23 Salima Emerson PA [address] [place] [address] [address] PCP - General Physician Playground Official 12/26/23 Geoffrey Forrest MD [facility] [address] [place] [address] Consulting Physician Radiation Oncology 08/07/18 4 Lesa Good MD PhD [address] [facility] [address] [place] [address] Radiation Oncologist Radiation Oncology 10/17/18 Robert Gifford MD [address] [facility] [address] [place] [address] Referring Physician Fruit Loader Machine Operator 12/21/18 Nery Bassett MD [address] [facility] [address] [place] [address] Referring Physician Obstetrics and Gynecology 04/27/17 Mayur Zaragoza NP [address] [place] [address] Nurse Practitioner 10/24/19 Salima Emerson PA [address] [place] [address] Physician Playground Official 10/24/19 Bharat Corona MD [address] [place] [address] Consulting Physician Gynecologic Oncology 07/16/20 Unknown, Notinfile 12/31/20 12/31/20 Robert Gifford MD Referring Physician Fruit Loader Machine Operator 12/31/20 Tamara Dia MD [address] [facility], [address] [address] Consulting Physician Pain Management 01/23/24 documented as of this encounter
--- OUTSIDE RECORDS SUMMARY | 2025-02-21 11:02 | XMS_ITS | Encounter Summary ---
Author Organization [facility] Address [address] [place] [address] Care Team Providers Care Brick Grader Name Role Phone Salima Emerson PA-C Primary Care Provider [phone] Mookie Foster MD Unavailable [phone] Encounter Details Date Type Department Care Team (Late st Contact Info) Description 05/05/2020 Hospital Follow-up Call [facility] Telemetry Unit [address] [place] [address] Rosemarie Mata RN Social History Tobacco Use Types Packs/Day Years [...] on file Sexual Orientation Not on file COVID-19 Exposure Response Date Recorded In the last month, have you been in contact with someone who was confirmed or suspected to have Coronavirus / COVID-19? No / Unsure 05/03/2020 10:09 AM CDT documented as of this encounter Functional Status * RETIRED Are you deaf or do you have serious difficulty hearing Answer Date of Assessment Author Status No 05/03/2020 1:53 PM CDT Activ e * RETIRED Are you blind or do you have serious difficulty seeing, even when wearing glasses? Answer Date of Assessment Author Status No 05/03/2020 1:53 PM CDT Activ e * Do you have serious difficulty walking or climbing stairs? Answer Date of Assessment Author Status No 05/03/2020 1:53 PM Kenyatta Davalos RN Active * Do you have difficulty dressing or bathing? Answer Date of Assessment Author Status No 05/03/2020 1:53 PM Kenyatta Davalos RN Active * Because of a physical, mental, or emotional condition, do you have difficulty doing errands alone such as visiting a doctor's office or shopping? Answer Date of Assessment Author Status No 05/03/2020 1:53 PM Kenyatta Davalos RN Active documented as of this encounter Mental Status * Because of a physical, mental, or emotional condition, do you have serious difficulty concentrating, remembering, or making decisions? Answer Entry Date Author Status No 05/03/2020 1:53 PM Kenyatta Davalos RN Active documented in this encounter Plan of Treatment Not on file documented as of this encounter Visit Diagnoses Not on filedocumented in this encounter Care Teams Brick Grader Relationship Specialty Start Date End Date Salima Emerson PA-C [address] [place] [address] PCP - General NURSE PRACTITIONER 05/03/20 Mookie Foster MD [address] [place] [address] Consulting Physician HEMATOLOGY/ONCOLOGY 11/22/21 documented as of this encounter
--- OUTSIDE RECORDS SUMMARY | 2025-02-21 11:02 | XMS_ITS | Encounter Summary ---
Author Organization [facility] Address [address] [place] [address] Care Team Providers Care Simulation Engineer Name Role Phone Geoffrey Forrest MD Unavailable [phone] Lesa Good MD PhD Unavailable + Robert Gifford MD Unavailable + [phone] Nery Bassett MD Unavailable [phone] Mayur Zaragoza NP Unavailable [phone] Salima Emerson Unavailable [phone] Nahomy Roger MD Primary Care Provider + [phone] Bharat Corona MD Unavailable [phone] Unknown, Notinfile Unavailable Unavailable Robert Gifford MD Unavailable + [phone] Salima Emerson Primary Care Provider + Tamara Dia MD Primary Care Provider [phone] Salima Emerson Primary Care Provider + Tamara Dia MD Unavailable Reason for Visit * Reason Onset Date Comments Mailed Disc 10/22/2020 Encounter Details Date Type Department Care Team (Late st Contact Info) Description 10/22/2020 Telephone [facility] Advanced Medicine [address] [facility] [address] [place] [address] Galindo Bassett MD [address] [place] [address] Mailed Disc Social History Tobacco Use Types Packs/Day Years Used Date Smoking Tobacco: Every Day Smokeless Tobacco: Current Alcohol Use Standard Drinks/Week Comments No 0 (1 standard drink = 0.6 oz pur e alcohol) denies Comments No Sex and Gender Information Value Date Recorded Sex Assigned at Not on file Legal Sex Female 5:05 AM HYDROMETEOROLOGICAL TECHNICIAN Gender Identity Not on file Sexual Orientation Not on file documented as of this encounter Plan of Treatment Not on file documented as of this encounter Goals Goal Patient Goal Type Associated Problems Recent Progress Patient-Stated? Author CCM Chronic Pain Care Plan Chronic Care Management No change(09/24 9:56 AM HYDROMETEOROLOGICAL TECHNICIAN) No Concepción Canas, RN Note: Problem: Chronic [...] COVID: Suspected 01/07/2024 01/07/2024 01/07/2024 12:50 PM HYDROMETEOROLOGICAL TECHNICIAN COVID19 01/07/2024 01/07/2024 01/17/2024 3:05 AM HYDROMETEOROLOGICAL TECHNICIAN COVID: Recovered Comment:Added based on recent COVID infection. 01/17/2024 01/22/2024 04/16/2024 3:05 AM C DT documented as of this encounter Care Teams Simulation Engineer Relationship Specialty Start Date End Date Nahomy Roger MD [address] [place] [address] PCP - General Family Medicine 01/02/20 05/18/21 Salima Emerson PA [address] [place] [address] PCP - General Physician Trauma Doctor 05/19/21 08/21/23 Tamara Dia MD [address] [facility], [address] [address] PCP - General Pain Management 08/22/23 12/25/23 Salima Emerson PA [address] [place] [address] [address] PCP - General Physician Trauma Doctor 12/26/23 Geoffrey Forrest MD [facility] [address] [facility] [address] [place] [address] Consulting Physician Radiation Oncology 08/07/18 4 Lesa Good MD PhD [address] [facility] [address] [place] [address] Radiation Oncologist Radiation Oncology 10/17/18 Robert Gifford MD [address] [facility] [address] [place] [address] Referring Physician Life Science Technical Officer 12/21/18 Nery Bassett MD [address] [facility] [address] [place] [address] Referring Physician Obstetrics and Gynecology 04/27/17 Mayur Zaragoza NP [address] [place] [address] Nurse Practitioner 10/24/19 Salima Emerson PA [address] [place] [address] Physician Trauma Doctor 10/24/19 Bharat Corona MD [address] [place] [address] Consulting Physician Gynecologic Oncology 07/16/20 Unknown, Notinfile 12/31/20 12/31/20 Robert Gifford MD Referring Physician Life Science Technical Officer 12/31/20 Tamara Dia MD [address] [facility], [address] [address] Consulting Physician Pain Management 01/23/24 documented as of this encounter
--- OUTSIDE RECORDS SUMMARY | 2025-02-21 11:02 | XMS_ITS | Clinical Summary ---
Author Organization [facility] Address [address] [facility] [place] [address] Care Team Providers Care Curator Herbarium Name Role Phone Patria Kearney APRN-ACID RETORT OPERATOR Primary Care Provider Source Comments [facility],non-owned Affiliates and Associated Physician Practices is amultiple site organization consisting of ambulatory clinics and hospital sitesin [place], [place], [place] and [place]. This disclosure is being madepursuant to the Care Everywhere program and may not contain all information available regarding this patient. Last updated 18.[facility] Allergies Active Allergy Reactions Criticality Noted Date Comments Ciprofloxacin Rash Medium 01/25/2016 Medications * Be aware that medications may not be up to date on this document. Alwaysverify current medications with the patient. Medication Sig Dispensed Refills Start Date End Date Status gabapentin (NEURONTIN) 300 MG capsule Take 600 mg by mouth TID. 01/16/2018 Active albuterol-ipratropi um (COMBIVENT) 18-103 MCG/ACT inhaler Inhale by mouth q6h PRN. 05/03/2017 Active vitamin D (CHOLECACIFEROL) 5000 UNITS capsule Take by mouth DAILY. 05/03/2017 Active Multiple Vitamin Take by mouth DAILY. 09/07/2016 Active oxyCODONE-acetamino phen (PERCOCET) 7.5-325 MG tablet Take 1 tablet by mouth 2 times daily as needed 10/08/2018 Active ALPRAZolam (XANAX) 1 MG tablet Take 1 mg by mouth 2 times daily 04/18/2018 Active albuterol (ACCUNEB) 0.63 MG/3ML nebulizer solution INHALE 3 ML PO VIA NEBULIZATION Q 6 H PRN 01/30/2018 Active cyclobenzaprine (FLEXERIL) 10 MG tablet Take 10 mg by mouth once daily 09/12/2018 Active lisinopril (PRINIVIL; ZESTRIL) 10 MG tablet Take 10 mg by mouth once daily 10/01/2018 Active omeprazole (PRILOSEC) 20 MG capsule Take 20 mg by mouth once daily 08/11/2018 Active QUEtiapine (SEROQUEL) 25 MG tablet Take 25 mg by mouth 2 times daily 09/27/2018 Active traZODone (DESYREL) 50 MG tablet Take 50 mg by mouth once daily 09/27/2018 Active Active Problems Problem Noted Date Diagnosed Date Malignant neoplasm of right ovary 01/16/2018 Malignant neoplasm of left ovary 01/16/2018 Cirrhosis of liver 05/03/2017 Overview (02/19/2018): EGD 05/2016 without varices Ultrasound 03/2017 no lesions Unspecified condition associ ated with female genital organs and menstrual cycle 05/03/2017 Overview (02/19/2018): Possible ovarian cancer, following with [facility] Immunizations Name Administration Dates Next Due INFLUENZA VACCINE, TRIV. (AF LURIA, FLUZONE TRIVALENT; 6MO+) (IIV3) 09/20/2015 Family History Medical History Relation Name Comments Cancer Brother brain COPD - Chronic Obstructive Pulmonary Disease Father Status: Heart Disease Mother Status: Deceas ed Liver Disease Paternal Uncle Relation Name Status Comments Brother Father Mother Paternal Uncle Social History Tobacco Use Types Packs/Day Years Used Date Smoking Tobacco: Every Day Cigarettes Smokeless Tobacco: Never Alcohol Use Standard Drinks/Week Comments Yes 12 (1 standard drink = 0.6 oz pu re alcohol) Sex and Gender Information Value Date Recorded Sex Assigned at Not on file Gender Identity Not on file Sexual Orientation Not on file Last Filed Vital Signs Vital Sign Reading Time Taken Comments Blood Pressure 114/77 10/10/2018 1:35 PM CONSUMER ELECTRONICS MERCHANDISER Pulse 87 01/16/2018 2:27 PM CONSUMER ELECTRON[employer] MERCHANDISER Temperature 36.6 C (97.8 F) 10/10/2018 1:35 PM CONSUMER ELECTRON[employer] MERCHANDISER Respiratory Rate 20 10/10/2018 1:35 PM CONSUMER ELECTRONICS MERCHANDISER Oxygen Saturation 100% 10/10/2018 1:35 PM CONSUMER ELECTRON[employer] MERCHANDISER Inhaled Oxygen Concentration - - Weight 61.7 kg (136 lb) 10/10/2018 1:35 PM CONSUMER ELECTRON[employer] MERCHANDISER Height 167.6 cm (5' 6 ) 10/10/2018 1:35 PM CONSUMER ELECTRONICS MERCHANDISER Body Mass Index 21.95 10/10/2018 1:35 PM CONSUMER ELECTRONICS MERCHANDISER Plan of Treatment Health Maintenance Due Date Last Done Comments BONE DENSITY TESTING 1955 COLOGUARD (AGES 45-75) - COLON CA SCREENING 1956 COLON MONITORING 1956 COLONOSCOPY - COLON CA SCREENING 1956 CT COLONOGRAPHY - COLON CA SCREENING 1955 Colorectal Cancer Screening 1956 FIT - COLON CA SCREENING 1956 FLEX SIG - COLON CA SCREENING 1956 LIPID TESTING 1955 MAMMOGRAM 1955 MEDICARE AWV 12 MONTHS 1956 DTAP/TDAP/TD VACCINES (1 - Tdap) 1975 PNEUMOCOCCAL VACCINE 50+ (1 of 2 - PCV) 1975 ZOSTER VACCINE (1 of 2) 2006 HEPATITIS B VACCINE (1 of 3 - Risk 3-dose series) 2016 Respiratory Syncytial Virus (RSV) Vaccine Pt: or over 60 yrs (1 - Risk 60-74 years 1-dose series) 2016 COVID-19 VACCINE (1 - season) 2024 INFLUENZA VACCINE (#1) 2024 09/20/2015 DEPRESSION SCREENING 11/20/2024 HEPATITIS C SCREENING Completed 10/10/2018 , 11/09/2016, 09/07/2016, Additional history exists HIB VACCINE Aged Out No longer eligi ble based on patient's age to complete this topic HPV VACCINE Aged Out No longer eligi ble based on patient's age to complete this topic MENINGOCOCCAL (Group B) VACCINE SHARED DECISION-MAKING Aged Out No longer eligible based on patient's age to complete this topic MENINGOCOCCAL GROUPS A/C/Y/W VACCINE Aged Out No longer eligible based on patient's age to complete this topic Procedures Procedure Name Priority Date/Time Associated Diagnosis Comments HEPATITIS C REAL-TIME PCR QUANTASURE Routine 07/28/2016 9:49 AM CDT from Last 3 Months or Most Recently Relevant to Health Maintenance Results * HEPATITIS C REAL-TIME PCR QUANTASURE (07/28/2016 9:49 AM CDT) Hepatitis C Virus RNA PCR Quantitative <15 NOT DETECTED <15 IU/mL [facility] Hepatitis C Virus RNA Log IU/mL <1.18 NOT DETECTED <1.18 Log IU/mL [facility]) See Note [facility] Comment: The analytical performance characteristics of this assay have been determined by [employer]. The modifications have not been cleared or approved by the FDA. This assay has been validated pursuant to the CLIA regulations and is used for clinical purposes. This test was performed using the OLIVIER(R)AmpliPrep/ OLIVIER(R)TaqMan(R)HCV Test,v2.0. For more information on this test, go to: http://education.Angiodroid/faq/KGS68i2 (This link is being provided for informational/ educational purposes only.) REPORT COMMENT: IS PATIENT ON HEPARIN, ARGATROBAN OR DABIGATRAN?->N Test Performed at: [facility] [address] [place] [address] RICH CASTAÑEDA DO,MPH 07/28/2016 9:49 AM CDT 07/28/2016 9:52 AM CDT Michelle Connolly MD LAB - SEROLOGY O RDERABLES H[facility]OR ([facility]) from Last 3 Months or Most Recently Relevant to Health Maintenance Care Teams Curator Herbarium Relationship Specialty Start Date End Date Patria Kearney APRN-ACID RETORT OPERATOR [address] [place] [address] PCP - General 10/10/18
--- OUTSIDE RECORDS SUMMARY | 2025-02-21 11:02 | XMS_ITS | Encounter Summary ---
Author Organization Formerly [facility] Address [address] [place] [address] Care Team Providers Care Air Turning Machine Feeder Name Role Phone Karthik Triplett MD Primary Care Provide r Geoffrey Forrest MD Unavailable [phone] Bharat Corona MD Unavailable +[phone] Lesa Good MD PhD Unavailable + Juanita Lobo Primary Care Provider U Patria Rajan NP Primary Care Provider [phone] Karthik Triplett MD Primary Care Provide r Robert Gifford MD Unavailable + [phone] Juanita Lobo Primary Care Provider U Juanita Kolb Primary Care Provider U Patria Rajan NP Primary Care Provider [phone] Juanita Lobo Primary Care Provider U Nery Salmon MD Unavailable +[phone] Mayur Zaragoza WILDLIFE MANAGEMENT PROFESSOR Unavailable [phone] Salima Emerson Unavailable [phone] Nahomy Roger MD Primary Care Provider + [phone] Bharat Corona MD Unavailable Unknown, Notinfile Unavailable Unavailable Robert Gifford MD Unavailable + [phone] Salima Emerson Primary Care Provider + Tamara Dia MD Primary Care Provider +[phone] Salima Emerson Primary Care Provider + Tamara Dia MD Unavailable Encounter Details Date Type Department Care Team (Late st Contact Info) Description 09/27/2018 Telephone [facility] Advanced Medicine Radiation Oncology [address] [facility] Advanced Medicine [place] [id number] Tarah Uribe RN Social History Tobacco Use Types Packs/Day Years Used Date Smoking Tobacco: Every Day Smokeless Tobacco: Current Alcohol Use Standard Drinks/Week Comments No 0 (1 standard drink = 0.6 oz pur e alcohol) Comments No Sex and Gender Information Value Date Recorded Sex Assigned at Not on file Legal Sex Female 5:05 AM SLAB OFF MILL TENDER Gender Identity Not on file Sexual Orientation [...] COVID: Suspected 01/07/2024 01/07/2024 01/07/2024 12:50 PM SLAB OFF MILL TENDER COVID19 01/07/2024 01/07/2024 01/17/2024 3:05 AM SLAB OFF MILL TENDER COVID: Recovered Comment:Added based on recent COVID infection. 01/17/2024 01/22/2024 04/16/2024 3:05 AM C DT documented as of this encounter Care Teams Air Turning Machine Feeder Relationship Specialty Start Date End Date Karthik Triplett MD [address] [facility] [place] [address] [place] [address] PCP - General 05/05/17 11/28/18 Juanita Lobo [address] [place] [address] PCP - General 11/29/18 11/29/18 Patria Kearney WILDLIFE MANAGEMENT PROFESSOR [address] [place] [address] [address] [place] [address] PCP - General Nurse Practitioner 11/30/18 12/09/18 Karthik Triplett MD [address] [facility] [place] [address] [place] [address] PCP - General 12/10/18 01/09/19 Juanita Lobo [address] LL LL [address] [place] [address] PCP - General 01/11/19 02/13/19 Juanita Lobo [address] LL [address] [place] [address] PCP - General 01/10/19 01/10/19 Patria Kearney WILDLIFE MANAGEMENT PROFESSOR [address] [place] [address] PCP - General 02/14/19 02/14/19 Juanita Lobo [address] [place] [address] PCP - General 02/15/19 01/01/20 Nahomy Roger MD [address] [place] [address] PCP - General Family Medicine 01/02/20 05/18/21 Salima Emerson PA [address] [place] [address] PCP - General Physician Wallpaper Hanger 05/19/21 08/21/[address] [facility] PAIN CENTER, [address] [address] PCP - General Pain Management 08/22/23 12/25/23 Salima Emerson PA [address] [place] [address] CENTER, [address] [address] PCP - General Physician Wallpaper Hanger 12/26/23 Geoffrey Forrest MD [address] [facility] [address] [place] [address] Consulting Physician Radiation Oncology 08/07/18 4 Bharat Corona MD [address] [place] [address] Referring Physician Gynecologic Oncology 08/07/1807/10 Lesa Good MD PhD [address] [facility] [address] [place] [address] Radiation Oncologist Radiation Oncology 10/17/18 Robert Gifford MD [address] [address] Referring Physician Mash Grinder 12/21/18 [place] [address] [place] [address] Referring Physician Obstetrics and Gynecology 04/27/17 Mayur Zaragoza, MEDINA [address] [place] [address] Nurse Practitioner 10/24/19 Salima Emerson PA [address] [place] [address] Physician Wallpaper Hanger 10/24/19 Bharat Corona MD [address] [place] [address] Consulting Physician Gynecologic Oncology 07/16/20 Unknown, Notinfile 12/31/20 12/31/20 Robert Gifford MD Referring Physician Mash Grinder 12/31/20 Tamara Dia MD [address] [facility] PAIN CENTER, [address] [address] Consulting Physician Pain Management 01/23/24 documented as of this encounter
--- OUTSIDE RECORDS SUMMARY | 2025-02-21 11:02 | XMS_ITS | Encounter Summary ---
Author Organization [facility] Address [address] [place] [address] Care Team Providers Care Testing Lead Name Role Phone Geoffrey Forrest MD Unavailable [phone] Lesa Good MD PhD Unavailable + Robert Gifford MD Unavailable + [phone] Nery Bassett MD Unavailable [phone] Mayur Zaragoza NP Unavailable [phone] Salima Emerson Unavailable [phone] Nahomy Roger MD Primary Care Provider + [phone] Bharat Corona MD Unavailable +[phone] Unknown, Notinfile Unavailable Unavailable Robert Gifford MD Unavailable + [phone] Salima Emerson Primary Care Provider + Tamara Dia MD Primary Care Provider [phone] Salima Emerson Primary Care Provider + Tamara Dia MD Unavailable Reason for Visit * Reason Onset Date Comments 08/11/2020 Encounter Details Date Type Department Care Team (Late st Contact Info) Description 08/11/2020 Telephone [facility] Advanced Medicine [address] [facility] [address] [place] [address] Galindo Bassett MD [address] [place] [address] FYI Social History Tobacco Use Types Packs/Day Years Used Date Smoking Tobacco: Every Day Smokeless Tobacco: Current Alcohol Use Standard Drinks/Week Comments No 0 (1 standard drink = 0.6 oz pur e alcohol) Comments No Sex and Gender Information Value Date Recorded Sex Assigned at Not on file Legal Sex Female 5:05 AM SHOWER SCREEN INSTALLER Gender Identity Not on file Sexual Orientation Not on file documented as of this encounter Plan of Treatment Not on file documented as of this encounter Goals Goal Patient Goal Type Associated Problems Recent Progress Patient-Stated? Author CCM Chronic Pain Care Plan Chronic Care Management No change(09/24 9:56 AM SHOWER SCREEN INSTALLER) No Concepción Canas, RN Note: Problem: Chronic [...] COVID: Suspected 01/07/2024 01/07/2024 01/07/2024 12:50 PM SHOWER SCREEN INSTALLER COVID19 01/07/2024 01/07/2024 01/17/2024 3:05 AM SHOWER SCREEN INSTALLER COVID: Recovered Comment:Added based on recent COVID infection. 01/17/2024 01/22/2024 04/16/2024 3:05 AM C DT documented as of this encounter Care Teams Testing Lead Relationship Specialty Start Date End Date Nahomy Roger MD [address] [place] [address] PCP - General Family Medicine 01/02/20 05/18/21 Salima Emerson PA [address] [place] [address] PCP - General Physician Financial Auditor 05/19/21 08/21/23 Tamara Dia MD [address] [facility], [address] [address] PCP - General Pain Management 08/22/23 12/25/23 Salima Emerson PA [address] [place] [address] PAIN CENTER, [address] [address] PCP - General Physician Financial Auditor 12/26/23 Geoffrey Forrest MD [address] [place] [address] [address] [place] [address] Consulting Physician Radiation Oncology 08/07/18 4 Lesa Good MD PhD [address] LL [facility] [address] [place] [address] Radiation Oncologist Radiation Oncology 10/17/18 Robert Gifford MD [address] LL [facility] [address] [place] [address] Referring Physician Break Up Worker 12/21/18 Nery Bassett MD [address] LL [facility] [address] [place] [address] Referring Physician Obstetrics and Gynecology 04/27/17 Mayur Zaragoza NP [address] [place] [address] Nurse Practitioner 10/24/19 Salima Emerson PA [address] [place] [address] Physician Financial Auditor 10/24/19 Bharat Corona MD [address] [place] [address] Consulting Physician Gynecologic Oncology 07/16/20 Unknown, Notinfile 12/31/20 12/31/20 Robert Gifford MD Referring Physician Break Up Worker 12/31/20 Tamara Dia MD [address] [facility] [address] Consulting Physician Pain Management 01/23/24 documented as of this encounter
--- OUTSIDE RECORDS SUMMARY | 2025-02-21 11:02 | XMS_ITS | Clinical Summary ---
Author Organization [facility] Address [address] [place] [address] Care Team Providers Care Manager R D Name Role Phone Lesa Good MD PhD Unavailable + Robert Gifford MD Unavailable + [phone] Nery Bassett MD Unavailable [phone] Mayur Zaragoza NP Unavailable [phone] Salima Emerson Unavailable [phone] Bharat Corona MD Unavailable [phone] Robert Gifford MD Unavailable + [phone] Salima Emerson Primary Care Provider + Tamara Dia MD Unavailable Allergies Active Allergy Reactions Criticality Noted Date [...] a day 60 capsule 11 4 05/31/20 Active Additional Information Patient not taking.Reported on [...] as needed (constipation) 238 g 4 Active zskrihvw-fzf-zi ondroit-vit D3 750 mg-125 mg -600 mg [...] a day 60 capsule 5 4 05/03/20 Active Active Problems Problem Noted Date Diagnosed [...] infection) 11/21/2021 Coronary artery disease invo lving nikolai coronary artery of nikolai heart without angina pectoris 07/29/2021 Chronic low [...] (06/14/2018): Overview: Possible ovarian cancer, following with [facility] Hepatitis C virus 05/01/2017 Elevated tumor markers 05/01/2017 Mild intermittent asthma 04/27/2017 Seasonal allergic rhinitis due to pollen 017 Tobacco abuse 09/20/2016 Lumbar canal stenosis 01/01/2014 Spondylolisthesis of lumbar region 01/01/2014 Degenerative disc disease, lumbar 01/01/2014 Pericardial effusion Degenerative disc disease, thoracic Herniated cervical disc Encounters Date Type Department Care Team Description 12/05/2024 Orders Only [facility] [place] [address], [address] [place] [address] Jamey Jade MD Nicotine use (Primary Dx) from Last 3 Months Immunizations Immunization Administration Dates Next Due Hep [...] ZOSTER Recombinant 11/08/2019, 9,08/27/2019,08/27 Zoster, unspecified 11/08/2019,08/27/2019 Surgical History Surgery Date Site/Laterality Comments ROTATOR CUFF REPAIR Rotator Cuff Repair - (Added by TW Conv) HYSTERECTOMY LIVER BIOPSY LAMINOPLASTY 04/01/2022 C4-5,C5-6,C6-7,C7-8 BREAST BIOPSY 02/08/2024 Left Medical History Medical History Date Comments Personal history of other di seases of the musculoskeletal system and connective tissue History of arthritis - (Adde d by TW Conv) Personal history of other di seases of the digestive system History of cirrhosis - (Adde d by TW Conv) Personal history of other in fectious and parasitic diseases History of hepatitis C virus infection - (Added by TW Conv) Ovarian cancer (HCC) Anxiety Depression COPD (chronic obstructive pu lmonary disease) (HCC) Asthma Emphysema lung (HCC) Arthritis Bipolar disorder (HCC) Family History Medical History Relation Name Comments Brain cancer Brother Family history of malignant neoplasm of brain - (Added by TW Conv) Cancer Brother Emphysema Father Emphysema lung - (Added by TW Conv) Cancer Mother Heart disease Mother Family history of cardiac disorder - (Added by TW Conv) Stomach cancer Mother Family histor y of malignant neoplasm of stomach - (Added by TW Conv) Breast cancer Mother's Sister Family hist ory of malignant neoplasm of breast - (Added by TW Conv) Hypertension Son Family history of hypertension - (Added by TW Conv) Relation Name Status Comments Brother (Age 43) Father (Age 88) Mother (Age 90) Mother's Sister Son Social History Tobacco Use Types Packs/Day Years Used Date Smoking Tobacco: Every Day Cigarettes 0.4 55.3 Started: 1968 Smokeless Tobacco: Never Tobacco Cessation:Ready to Q uit: Not Asked; Counseling Given: Not Answered Comments:Patient few months ago cut down to few cigarettes a day. Alcohol Use Standard Drinks/Week Comments No 0 (1 standard drink = 0.6 oz pur e alcohol) denies [facility] Utilities Answer Date Recorded In the past 12 months has [employer], gas, oil, or water Mobile [employer]hentication threatened to shut off services in your [...] 06/11/2024 How often do you attend chur or scientology services? Never 06/11/2024 Do you belong to any clubs o r organizations such as sabianist groups, unions, fraternal or athletic groups, or [...] place to sleep or slept in a nursing home (including now)? No 03/31/2022 Housing Stability Vital Sign Answer Jason e Recorded In the last 12 months, was t here a time when you were not able to pay the mortgage or rent on time? No 06/11/2024 In the past 12 months, how m any times have you moved where you were living? 0 06/11/2024 At any time in the past 12 m [facility], were you homeless or living in a nursing home (including now)? No 06/11/2024 Personal Safety Answer Date Recorded Have you ever been in or are you currently in a harmful physical or emotional relationship or is someone making you feel afraid or unsafe? Denies 06/10/2024 Comments No Sex and Gender Information Value Date Recorded Sex Assigned at Not on file Legal Sex Female 5:05 AM NAIL STICKER Gender Identity Not on file Sexual Orientation Not on file Occupation Industry Job Start Date Job End Date Disability Not on file Not on file Not on file Obstetrics History Para Term AB IAB SAB Ectopic Multiple Livin g Live Births 1 1 1 1 1 Date Outcome GA Total Labor Labor/2nd/3rd Weight Sex Type Anes PTL Teodora A1 A5 Name Clin Term Last Filed Vital Signs Vital Sign Reading Time Taken Comments Blood Pressure 122/83 09/16/2024 10:49 AM CDT Pulse 90 11/04/2024 10:18 AM NAIL STICKER Temperature 36.8 C (98.2 F) 06/14/2024 7:40 AM CDT Respiratory Rate 18 11/04/2024 10:18 AM NAIL STICKER Oxygen Saturation 95% 11/04/2024 10:18 AM NAIL STICKER Inhaled Oxygen Concentration - - Weight 68.9 kg (152 lb) 11/04/2024 10:18 AM NAIL STICKER Height 167.6 cm (5' 6 ) 11/04/2024 10:18 AM NAIL STICKER Body Mass Index 24.53 11/04/2024 10:18 AM NAIL STICKER Plan of Treatment Health Maintenance Due Date Last Done Comments Colon Cancer Screening-Colonoscopy 1955 Depression Screening 1955 Lung Cancer Screening 2006 DTaP/Tdap/Td Vaccine (1 - Tdap) 05/29/2015 5 Well Visit 65+ 2021 Covid-19 Vaccine (3 - Modern a risk series) 06/15/2021 05/18/2021, 04/22/2021 Breast Cancer Screening-Mammogram 03/15/2022 021 Influenza Vaccine (#1) 2024 , 08/25/2020, 08/25/2020, Additional history exists Fall Risk Assessment 06/14/2025 06/14/2024 Osteoporosis Screening-Bone Density Scan 10/04/2026 10/04/2024, 12/20/2021, 07/27/2016 Hepatitis C Screening Completed 02/22/2018 , 01/18/2018, 07/06/2017, Additional history exists Zoster Vaccine Completed 11/08/2019, 10/21, 11/08/2019, Additional history exists Pneumococcal vaccine 65+ Completed 022, 05/02/2017, 09/02/2008 Goals Goal Patient Goal Type Associated Problems Recent Progress Patient-Stated? Author CCM Chronic Pain Care Plan Chronic Care Management No change(09/24 9:56 AM NAIL STICKER) No Concepción Canas, RN Note: Problem: Chronic Pain Goals: 1. Minimize further functional decline 2. Maximize quality of life 3. Control pain Strategies: - Activity/exercise program recommendation - Conservative stepwise pain medicine strategy with multi-disciplinary approach - Recommend healthy lifestyle strategies and compensatory methods as needed Medical Devices Implanted Type Area Stars Analytical Lead Device Identifier Shelf Expiration Date Model / Serial / Lot 12 Mm Plate Implanted:Qty: 4 on 04/01/2022 by Esperanza Vernon Ud, MD at [facility] [employer] [id number] / / [employer] Centerpiece 2.6mm 5mm Self Tap Stab Grab Color Coded Spine Screw [id number] - [id number] Implanted:Qty: 12 on 04/01/2022 by Esperanza Vernon Ud, MD at [facility] [employer] [id number] / / [employer] Centerpiece 2.6mm 7mm Self Tap Stab Grab Color Coded Spine Screw [id number] - [id number] Implanted:Qty: 8 on 04/01/2022 by Esperanza Vernon Ud, MD at [facility] [employer] [id number] / / [employer] Graft Bone Strut Cortical Fd Centerpiece 12mm [id number] - [id number] - [id number] Implanted:Qty: 1 on 04/01/2022 by Esperanza Vernon Ud, MD at [facility] [employer] 06/15/2026 [id number] / [id number] / [employer] Graft Bone Strut Cortical Fd Centerpiece 12mm [id number] - [id number] - [id number] Implanted:Qty: 1 on 04/01/2022 by Esperanza Vernon Ud, MD at [facility] [employer] 06/15/2026 [id number] / [id number] / [employer] Graft Bone Strut Cortical Fd Centerpiece 12mm [id number] - [id number] - [id number] Implanted:Qty: 1 on 04/01/2022 by Esperanza Vernon Ud, MD at [facility] [employer] 08/31/2026 [id number] / [id number] / [employer] Graft Bone Strut Cortical Fd Centerpiece 12mm [id number] - [id number] - [id number] Implanted:Qty: 1 on 04/01/2022 by Esperanza Vernon Ud, MD at [facility] [employer] 06/15/2026 [id number] / [id number] / [employer] Eviva 13cm Identifier Biopsy Site [id number] - [id number] Implanted:Qty: 1 on 02/08/2024 by Hitesh Padilla MD at [facility] Left: Breast [employer] [id number] 07/11/2024 [facility] VA[facility]13 / / [id number] Procedures Procedure Name Priority Date/Time Associated Diagnosis Comments DEXA AXIAL SKELETON BONE DENSITY 1 OR MORE SITES Schedule Routine, Read Routine (OP Routine) 10/04/2024 10:20 AM NAIL STICKER Age-related osteoporosis without current pathological fracture from Last 3 Months or Most Recently Relevant to Health Maintenance Results * DEXA Axial Skeleton Bone Density Multi Site (10/04/2024 10:20 AM NAIL STICKER) Anatomical Region Laterality Modality Body N/A Mammography 10/04/2024 5:18 PM NAIL STICKER Narrative 10/04/2024 5:19 PM NAIL STICKER EXAM DESCRIPTION: DEXA AXIAL SKELETON BONE DENSITY 1 OR MORE SITES REASON FOR STUDY: 69 y/o year old F with given history of: osteoporosis Stars Analytical Lead/Model: Fixes 4 Kids A (S/N [id number]) CLINICAL INFORMATION: Current height: 65 inches Maximum [...] Robert Hwang M.D. MF: ANDRADE Report ID: [id number] Reading Location: [id number] [facility] Note Robert Hwang MD - 10/04/2024 EXAM DESCRIPTION: DEXA AXIAL SKELETON BONE DENSITY 1 OR MORE SITES REASON FOR STUDY: 69 y/o year old F with given history of:osteoporosis Stars Analytical Lead/Model: Fixes 4 Kids A (S/N [id number]) CLINICAL INFORMATION: Current height: 65 inches Maximum [...] Robert Hwang M.D. MF: ANDRADE Report ID: [id number] Reading Location: [id number] Jamey Jade MD IMG DXA PROCEDURES Final Result from Last 3 Months or Most Recently Relevant to Health Maintenance Insurance * Guarantor: Myriam Martinez Account Type Relation to Patient Date of Phone Billing Address Personal/Family Self 1955 [address] [place] [address] IDPA MEDICARE [facility] Address: [address] [address] [place] [address] [facility] MEDICARE ADVANTAGE * Guarantor: Myriam Martinez Account Type Relation to Patient Date of Phone Billing Address Personal/Family Self 1955 [address] [place] [address] [facility] MEDICARE ADVANTAGE IDPA Advance Directives For more information, please contact: [phone] Documents on File Type Date Recorded Patient Porcelain Enamel Laborer Expl anation ADVANCE DIRECTIVE 11/26/2020 8:52 AM Power of Fbi Sharpshooter-Financial/Medica l ADVANCE DIRECTIVE 05/30/2019 9:04 AM ADVANCE DIRECTIVE 05/02/2019 10:17 AM ADVA NCE DIRECTIVE ADVANCE DIRECTIVE 09/26/2016 12:00 AM EMILIANO R OF TELEVISION REPAIR TEACHER FINANCIAL/MEDICAL ADVANCE DIRECTIVE 03/21/2019 2:54 PM ADVANC [...] specifically selected below: No intubation Care Teams Manager R D Relationship Specialty Start Date End Date Salima Emerson PA [address] [place] [address] PCP - General Physician Health Social Work Professor 12/26/23 Lesa Good MD PhD [address] [facility] # LL [address] [place] [address] Radiation Oncologist Radiation Oncology 10/17/18 Robert Gifford MD [address] [place] [address] Referring Physician Thread Weaver 12/21/18 Nery Bassett MD [address] [place] [address] Referring Physician Obstetrics and Gynecology 04/27/17 Mayur Zaragoza, MEDINA [address] [place] [address] Nurse Practitioner 10/24/19 Salima Emerson PA [address] [place] [address] Physician Health Social Work Professor 10/24/19 Bharat Corona MD [address] [place] [address] Consulting Physician Gynecologic Oncology 07/16/20 Robert Gifford MD [address] [place] [address] Referring Physician Thread Weaver 12/31/20 Tamara Dia MD [address] [place] [address] Consulting Physician Pain Management 01/23/24
--- OUTSIDE RECORDS SUMMARY | 2025-02-21 11:03 | XMS_ITS | Encounter Summary ---
Author Organization [facility] Address [address] [place] [address] Phone Care Team Providers Care Greaser And Oiler Name Role Phone KiSalima majano A PAC Primary Care Provider [phone] Mookie Foster MD Unavailable [phone] Encounter Details Date Type Department Care Team (Late st Contact Info) Description 12/21/2021 Telephone [facility] [address] [place] [address] Huber Doe, DO [address] [place] [address] Social History Tobacco Use Types Packs/Day Years Used Date Smoking Tobacco: Former Cigarettes Q uit: 10/25/2021 Smokeless Tobacco: Never Alcohol Use Standard Drinks/Week Comments Not Currently 0 (1 standard drink = 0.6 oz pur e alcohol) PHQ-2 Answer Date Recorded Total Score - Questions 1-9 13 04/2022 Comments Unknown Sex and Gender Information Value Date Recorded Sex Assigned at Not on file Legal Sex Female 3:47 PM SOFTWARE DESIGNER Gender Identity Not on file Sexual Orientation Not on file COVID-19 Exposure Response Date Recorded In the last month, have you been in contact with someone who was confirmed or suspected to have Coronavirus / COVID-19? No / Unsure 11/25/2021 10:02 AM SOFTWARE DESIGNER documented as of this encounter Miscellaneous Notes * Telephone Encounter - Ina Morin - 12/21/2021 4:35 PM CST Called to reschedule pt CT SCAN. Patient decided that she is not coming [facility] She will be following up with treatment from another facility. Referring doctor has been alerted. Salima Emerson PAC spoke with Zeenat. WARE DESIGNER * Telephone Encounter - Ina Morin - 12/21/2021 4:33 PM CST Called to reschedule pt CT SCAN. Patient decided that she is not coming back to [facility]. She will be following up with treatment from another facility. Referring doctor has been alerted. Salima Emerson PAC spoke with Zeenat. WARE DESIGNER documented in this encounter Plan of Treatment Not on file documented as of this encounter Visit Diagnoses Not on filedocumented in this encounter Additional Health Concerns Assessment Noted Time PHQ-9 Depression Total Score: 13 022 10:40 AM SOFTWARE DESIGNER documented as of this encounter Care Teams Greaser And Oiler Relationship Specialty Start Date End Date Salima Emerson PAC [address] [place] [address] PCP - General Physician Cow Rider 11/22/21 Mookie Foster MD [address] [place] [address] Consulting Physician Oncology 11/22/21 documented as of this encounter
--- OUTSIDE RECORDS SUMMARY | 2025-02-21 11:03 | XMS_ITS | Clinical Summary ---
Author Organization [facility] Address [address], [facility] [address] [place] [address] Phone Care Team Providers Care Turkey Boner Name Role Phone Salima Emerson [facility] Primary Care Provider [phone] Mookie Foster MD Unavailable Allergies Active Allergy Reactions Criticality Noted Date Comments Ciprofloxacin Rash Medium 01/25/2016 Medications ALPRAZolam (XANAX) 1 MG Tablet 2 Active aspirin EC 81 MG Tablet Delayed Response Take 81 mg by mouth daily. Active cholecalciferol 25 mcg Tablet Take 1,000 Units by mouth. Active fluticasone (FLONASE) 50 MCG/ACT Suspension fluticasone propionate 50 mcg/actuation nasal spray,suspensio n SHAKE LIQUID AND USE 1 SPRAY IN EACH NOSTRIL EVERY DAY Active ipratropium-albu terol (Combivent Respimat) 20-100 MCG/ACT Aerosol Solution take 1 Puff by inhalation. 0 Active Combivent Respimat 20-100 MCG/ACT Aerosol Solution INHALE 1 PUFF TWICE DAILY 1 Active loratadine (CLARITIN) 10 MG Tablet daily Active magnesium oxide (MAG-OX) 400 MG Tablet Take 400 mg by mouth. 9 Active omeprazole (PriLOSEC) 20 MG CAPSULE DELAYED RELEASE TAKE 1 CAPSULE BY MOUTH EVERY DAY 1 Active pyridoxine (VITAMIN B-6) 50 MG Tablet Take 100 mg by mouth daily. Active rosuvastatin (CRESTOR) 5 MG Tablet TAKE 1 TABLET BY MOUTH EVERY NIGHT AT BEDTIME 1 Active traZODone (DESYREL) 50 MG Tablet TAKE 1 TABLET BY MOUTH EVERY DAY IN THE EVENING 1 Active ondansetron (ZOFRAN) 4 MG Tablet Take 1 Tablet by mouth every 8 hours as needed for Nausea - 1st line. 40 Tablet 2 Active HYDROcodone-acet aminophen (NORCO) 5-325 MG TabletIndication s:Malignant neoplasm of ovary, unspecified laterality (HCC) Take 1 Tablet by mouth every 8 hours as needed for Moderate or more severe pain. 90 Tablet 2 Active famotidine (PEPCID) 20 MG Tablet Take 1 Tablet by mouth 2 times daily. 60 Tablet 3 2 Active Active Problems Problem Noted Date Diagnosed Date Ovarian cancer Family History Medical History Relation Name Comments Cancer Brother Emphysema Father Cancer Mother Heart Disease Mother Hypertension Mother Relation Name Status Comments Brother Father Mother Social History Tobacco Use Types [...] on file Legal Sex Female 3:47 PM HAIR TINTER Gender Identity Not on file Sexual Orientation Not on file Last Filed Vital Signs Vital Sign Reading Time Taken Comments Blood Pressure 118/78 11/25/2021 10:31 AM HAIR TINTER Pulse 82 11/25/2021 10:31 AM HAIR TINTER Temperature 36.1 C (96.9 F) 11/25/2021 10:31 AM HAIR TINTER Respiratory Rate 18 11/25/2021 10:31 AM HAIR TINTER Oxygen Saturation 98% 11/25/2021 10:31 AM HAIR TINTER Inhaled Oxygen Concentration - - Weight 58.6 kg (129 lb 1.6 oz) 11/25/2021 10:31 AM HAIR TINTER Height 165.1 cm (5' 5 ) 11/25/2021 10:31 AM HAIR TINTER Body Mass Index 21.48 11/25/2021 10:31 AM HAIR TINTER Plan of Treatment Health Maintenance Due Date Last Done Comments TdaP Immunization 1955 Colonoscopy 2001 Colorectal Cancer Screening 2001 Cologuard 2006 Immunochemical Fecal Occult Blood 2006 Pneumococcal Immunization (50+ years) (3 of 3 - PCV) 05/02/2018 05/02/2017, 09/02/2008 SARS-COV-2 Immunization (3 - Moderna risk series) 06/15/2021 05/18/2021, 04/22/2021 Influenza Immunization (#1) 07/21/202408/21, 08/25/2020, 07/09/2019, Additional history exists Respiratory Syncytial Virus (RSV) Immunization (Adult) (1 - 1-dose 75+ series) 2031 Hepatitis B Immunization Completed 010, 10/09/2009, 08/24/2009 DTaP/Tdap/Td Immunization Discontinued 05/28/2015 Zoster Immunization Completed 11/08/2019, 9 Meningococcal Immunization (ACWY) Aged Out No longer eligible based on patient's age to complete this topic Rotavirus Immunization Aged Out No lo nger eligible based on patient's age to complete this topic Insurance MEDICARE MEDICAID [place] Care Teams Turkey Boner Relationship Specialty Start Date End Date Salima Emerson PAC [address] [place] [address] PCP - General Physician Historical Archeologist 11/22/21 Mookie Foster MD [address] [place] [address] Consulting Physician Oncology 11/22/21
--- OUTSIDE RECORDS SUMMARY | 2025-02-21 11:03 | XMS_ITS | Encounter Summary ---
Author Organization [facility] Facility Care Team Providers Care Landscape Artist Name Role Phone Karthik Triplett MD Primary Care Provide r Unknown, Notinfile Primary Care Provider Unavail able Karthik Triplett MD Primary Care Provide r Geoffrey Forrest MD Unavailable [phone] Bharat Corona MD Unavailable + [phone] Lesa Good MD PhD Unavailable + Juanita Lobo Primary Care Provider U Patria Rajan UNIT SUPERVISOR Primary Care Provider [phone] Karthik Triplett MD Primary Care Provide r Robert Gifford MD Unavailable + [phone] Juanita Lobo Primary Care Provider U Juanita Kolb Primary Care Provider U Patria Rajan NP Primary Care Provider [phone] Junaita Lobo Primary Care Provider U Nery Salmon MD Unavailable [phone] Mayur Zaragoza NP Unavailable [phone] Salima Emerson Unavailable + [phone] Nahomy Roger MD Primary Care Provider [phone] Bharat Corona MD Unavailable +[phone] Unknown, Notinfile Unavailable Unavailable Robert Gifford MD Unavailable + [phone] Salima Emerson Primary Care Provider + Tamara Dia MD Primary Care Provider [phone] Salima Emerson Primary Care Provider + Tamara Dia MD Unavailable Encounter Details Date Type Department Care Team (Latest Contact Info) Description 10/06/2016 Orders Only [facility] CLINCONV Provider, MD Salbador [address] [place] [address] Social History Tobacco Use Types Packs/Day Years Used Date Smoking Tobacco: Never Assessed Comments Unknown Sex and Gender Information Value Date Recorded Sex Assigned at Not on file Legal Sex Female 5:05 AM HAIR SPECIALIST Gender Identity Not on file Sexual Orientation Not on file documented as of this encounter Plan of Treatment Not on file documented as of this encounter Procedures Procedure Name Priority Date/Time Associated Diagnosis Comments PROCEDURE - RESULT 09/29/2016 12 :00 AM HAIR SPECIALIST documented in this encounter Results * PROCEDURE - RESULT (09/29/2016 12:00 AM HAIR SPECIALIST) Narrative 09/29/2016 12:00 AM HAIR SPECIALIST Ordered by an unspecified provider. Historical Provider Final Res ult documented in this encounter Visit Diagnoses Not on filedocumented in this encounter Additional Health Concerns Infection Onset Date Last Indicated Resolved Time COVID: Suspected 06/26/2022 06/26/2022 06/26/2022 6:52 PM CDT COVID: Suspected 03/22/2023 03/22/2023 03/22/2023 8:17 AM CDT COVID: Suspected 01/07/2024 01/07/2024 01/07/2024 12:50 PM HAIR SPECIALIST COVID19 01/07/2024 01/07/2024 01/17/2024 3:05 AM HAIR SPECIALIST COVID: Recovered Comment:Added based on recent COVID infection. 01/17/2024 01/22/2024 04/16/2024 3:05 AM C DT documented as of this encounter Care Teams Landscape Artist Relationship Specialty Start Date End Date Karthik Triplett MD [address] [place] [address] PCP - General 04/20/17 04/30/17 Unknown, Notinfile PCP - General 05/01/17 05/04/17 Karthik Triplett MD [address] [place] [address] PCP - General 05/05/17 11/28/18 Juanita Lobo [address] [address] PCP - General 11/29/18 11/29/18 Patria Kearney UNIT SUPERVISOR [address] [place] [address] PCP - General Nurse Practitioner 11/30/18 12/09/18 Karthik Triplett MD [address] [place] [address] PCP - General 12/10/18 01/09/19 Juanita Lobo [address] [place] [id number] [place] [address] PCP - General 01/11/19 02/13/19 Juanita Lobo [address] [address] PCP - General 01/10/19 01/10/19 Patria Kearney UNIT SUPERVISOR [address] [facility] [address] [address] PCP - General 02/14/19 02/14/19 Juanita Lobo [address] [place] [address] PCP - General 02/15/19 01/01/20 Nahomy Roger MD [address] [place] [address] PCP - General Family Medicine 01/02/20 05/18/21 Salima Emerson PA [address] [place] [address] PCP - General Physician Manufacturing Technologist 05/19/21 08/21/23 Tamara Dia MD [address] [facility] [address] PCP - General Pain Management 08/22/23 12/25/23 Salima Emerson PA [address] [place] [address] [address] PCP - General Physician Manufacturing Technologist 12/26/23 Geoffrey Forrest MD [address] [facility] [address] [place] [address] Consulting Physician Radiation Oncology 08/07/18 4 Bharat Corona MD [address] [place] [address] Referring Physician Gynecologic Oncology 08/07/1807/10 Lesa Good MD PhD [address] [place] [address] Radiation Oncologist Radiation Oncology 10/17/18 Robert Gifford MD [address] [facility] [address] [place] [address] Referring Physician Benefit Specialist 12/21/18 Nery Bassett MD [address] [facility] [address] [place] [address] Referring Physician Obstetrics and Gynecology 04/27/17 Mayur Zaragoza NP [address] [place] [address] Nurse Practitioner 10/24/19 Salima Emerson PA [address] [place] [address] Physician Manufacturing Technologist 10/24/19 Bharat Corona MD [address] [place] [address] Consulting Physician Gynecologic Oncology 07/16/20 Unknown, Notinfile 12/31/20 12/31/20 Robert Gifford MD [address] [place] [address] Referring Physician Benefit Specialist 12/31/20 Tamara Dia MD [address] [facility] [address] Consulting Physician Pain Management 01/23/24 documented as of this encounter
--- OUTSIDE RECORDS SUMMARY | 2025-02-21 11:03 | XMS_ITS | Encounter Summary ---
Author Organization [facility] Address [address] [place] [address] Phone Care Team Providers Care Childcare Administrator Name Role Phone Karthik Triplett MD Primary Care Provide r Geoffrey Forrest MD Unavailable [phone] Bharat Corona MD Unavailable [phone] Lesa Good MD PhD Unavailable + Juanita Lobo Primary Care Provider U Patria Rajan SUPERVISING FIRE MARSHAL Primary Care Provider [phone] Karthik Triplett MD Primary Care Provide r Robert Gifford MD Unavailable + [phone] Juanita Lobo Primary Care Provider U Juanita Kolb Primary Care Provider U Patria Rajan NP Primary Care Provider [phone] Juanita Lobo Primary Care Provider U Nery Salmon MD Unavailable +[phone] Mayur Zaragoza NP Unavailable [phone] Salima Emerson Unavailable [phone] Nahomy Roger MD Primary Care Provider + [phone] Bharat Corona MD Unavailable +[phone] Unknown, Notinfile Unavailable Unavailable Robert Gifford MD Unavailable +[phone] Salima Emerson Primary Care Provider + Tamara Dia MD Primary Care Provider [phone] Salima Emerson Primary Care Provider + Tamara Dia MD Unavailable Encounter Details Date Type Department Care Team (Latest Contact Info) Description 10/17/2017 Orders Only [facility] CONVERSION Scanning, Provider Social History Tobacco Use Types Packs/Day Years Used Date Smoking Tobacco: Every Day Comments Unknown Sex and Gender Information Value Date Recorded Sex Assigned at Not on file Legal Sex Female 5:05 AM GEAR GRINDER Gender Identity Not on file Sexual Orientation Not on file documented as of this encounter Plan of Treatment Not on file documented as of this encounter Procedures Procedure Name Priority Date/Time Associated Diagnosis Comments VASCULAR LABORATORY REPORT 10/17/2017 9:27 PM GEAR GRINDER documented in this encounter Results * VASCULAR LABORATORY REPORT (10/17/2017 9:27 PM GEAR GRINDER) Anatomical Region Laterality Modality Ultrasound us Provider Scanning CV VASCULAR PROCEDURES Final R esult documented in this encounter Visit Diagnoses Not on filedocumented in this encounter Additional Health Concerns Infection Onset Date Last Indicated Resolved Time COVID: Suspected 06/26/2022 06/26/2022 06/26/2022 6:52 PM CDT COVID: Suspected 03/22/2023 03/22/2023 03/22/2023 8:17 AM CDT COVID: Suspected 01/07/2024 01/07/2024 01/07/2024 12:50 PM GEAR GRINDER COVID19 01/07/2024 01/07/2024 01/17/2024 3:05 AM GEAR GRINDER COVID: Recovered Comment:Added based on recent COVID infection. 01/17/2024 01/22/2024 04/16/2024 3:05 AM C DT documented as of this encounter Care Teams Childcare Administrator Relationship Specialty Start Date End Date Karthik Triplett MD [address] [place] [address] PCP - General 05/05/17 11/28/18 Juanita Lobo [address] [place] [address] PCP - General 11/29/18 11/29/18 Patria Kearney NP [address] [facility] [address] [place] [address] PCP - General Nurse Practitioner 11/30/18 12/09/18 Karthik Triplett MD [address] [place] [address] PCP - General 12/10/18 01/09/19 Juanita Lobo [address] [place] [address] PCP - General 01/11/19 02/13/19 Juanita Lobo [address] [place] [address] PCP - General 01/10/19 01/10/19 Patria Kearney SUPERVISING FIRE MARSHAL [address] [place] [address] PCP - General 02/14/19 02/14/19 Juanita Lobo [address] [facility] [address] [place] [address] PCP - General 02/15/19 01/01/20 Nahomy Roger MD [address] [place] [address] [address] [place] [address] PCP - General Family Medicine 01/02/20 05/18/21 Salima Emerson PA [address] [place] [address] PCP - General Physician Community Service Officer Coordinator 05/19/21 08/21/23 [place] [address] [place] [address] [address] PCP - General Pain Management 08/22/23 12/25/23 Salima Emerson PA [address] [place] [address] [address] PCP - General Physician Community Service Officer Coordinator 12/26/23 Geoffrey Forrest MD [address] [facility] [address] [place] [address] Consulting Physician Radiation Oncology 08/07/18 Bharat Corona MD [address] [facility] [address] [place] [address] Referring Physician Gynecologic Oncology 08/07/1807/10 Lesa Good MD PhD [address] [facility] [address] [place] [address] Radiation Oncologist Radiation Oncology 10/17/18 Robert Gifford MD [address] [place] [address] Referring Physician Manager Business Banking 12/21/18 Nery Bassett MD [address] [place] [address], [place] [address] Referring Physician Obstetrics and Gynecology 04/27/17 Mayur Zaragoza, MEDINA [address] [place] [address] Nurse Practitioner 10/24/19 Salima Emerson PA [address] [place] [address] Physician Community Service Officer Coordinator 10/24/19 Bharat Corona MD [address] [place] [address] Consulting Physician Gynecologic Oncology 07/16/20 Unknown, Notinfile 12/31/20 12/31/20 Robert Gifford MD Referring Physician Manager Business Banking 12/31/20 Tamara Dia MD [address] [facility] [address] Consulting Physician Pain Management 01/23/24 documented as of this encounter
--- OUTSIDE RECORDS SUMMARY | 2025-02-21 11:03 | XMS_ITS | Encounter Summary ---
Author Organization [facility] Facility Care Team Providers Care Library Manager Name Role Phone Karthik Triplett MD Primary Care Provide r Unknown, Notinfile Primary Care Provider Unavail able Karthik Triplett MD Primary Care Provide r Geoffrey Forrest MD Unavailable [phone] Bharat Corona MD Unavailable + [phone] Lesa Good MD PhD Unavailable + Juanita Lobo Primary Care Provider U Patria Rajan INTERPRETER FOR [employer] DEAF Primary Care Provider [phone] Karthik Triplett MD Primary Care Provide r Robert Gifford MD Unavailable + [phone] Juanita Lobo Primary Care Provider U Juanita Kolb Primary Care Provider U Patria Rajan NP Primary Care Provider [phone] Juanita Lobo Primary Care Provider U Nery Salmon MD Unavailable [phone] Mayur Zaragoza NP Unavailable [phone] Salima Emerson Unavailable + [phone] Nahomy Roger MD Primary Care Provider [phone] Bharat Corona MD Unavailable +[phone] Unknown, Notinfile Unavailable Unavailable Robert Gifford MD Unavailable + [phone] Salima Emerson Primary Care Provider + Tamara Dia MD Primary Care Provider [phone] Salima Emerson Primary Care Provider + Tamara Dia MD Unavailable Encounter Details Date Type Department Care Team (Latest Contact Info) Description 04/03/2017 Orders Only [facility] CLINCONV Provider, MD Salbador [address] [place] [address] Social History Tobacco Use Types Packs/Day Years Used Date Smoking Tobacco: Never Assessed Comments Unknown Sex and Gender Information Value Date Recorded Sex Assigned at Not on file Legal Sex Female 5:05 AM WEB MARKETING STRATEGIST Gender Identity Not on file Sexual Orientation Not on file documented as of this encounter Plan of Treatment Not on file documented as of this encounter Procedures Procedure Name Priority Date/Time Associated Diagnosis Comments SCAN - LABS 04/03/2017 12:00 AM CDT documented in this encounter Results * SCAN - LABS (04/03/2017 12:00 AM CDT) Narrative 04/03/2017 12:00 AM CDT Ordered by an unspecified provider. Historical Provider Final Res ult documented in this encounter Visit Diagnoses Not on filedocumented in this encounter Additional Health Concerns Infection Onset Date Last Indicated Resolved Time COVID: Suspected 06/26/2022 06/26/2022 06/26/2022 6:52 PM CDT COVID: Suspected 03/22/2023 03/22/2023 03/22/2023 8:17 AM CDT COVID: Suspected 01/07/2024 01/07/2024 01/07/2024 12:50 PM WEB MARKETING STRATEGIST COVID19 01/07/2024 01/07/2024 01/17/2024 3:05 AM WEB MARKETING STRATEGIST COVID: Recovered Comment:Added based on recent COVID infection. 01/17/2024 01/22/2024 04/16/2024 3:05 AM C DT documented as of this encounter Care Teams Library Manager Relationship Specialty Start Date End Date Karthik Triplett MD [address] [place] [address] PCP - General 04/20/17 04/30/17 Unknown, Notinfile PCP - General 05/01/17 05/04/17 Karthik Triplett MD [address] [place] [address] PCP - General 05/05/17 11/28/18 Juanita Lobo [address] [address] PCP - General 11/29/18 11/29/18 Patria Kearney INTERPRETER FOR THE DEAF [address] [address] PCP - General Nurse Practitioner 11/30/18 12/09/18 Karthik Triplett MD [address] [place] [address] PCP - General 12/10/18 01/09/19 Juanita Lobo [address] [facility] [address] [place] [address] PCP - General 01/11/19 02/13/19 Juanita Lobo [address] [facility] [address] [place] [address] PCP - General 01/10/19 01/10/19 Patria Kearney INTERPRETER FOR [employer] DEAF [address] [facility] [address] [place] [address] PCP - General 02/14/19 02/14/19 Juanita Lobo [address] [place] [address] PCP - General 02/15/19 01/01/20 Nahomy Roger MD [address] [place] [address] PCP - General Family Medicine 01/02/20 05/18/21 Salima Emerson PA [address] [place] [address] PCP - General Physician Stone Operator 05/19/21 08/21/23 Tamara Dia MD [facility] [address] PCP - General Pain Management 08/22/23 12/25/23 Salima Emerson PA [address] [place] [address] [address] PCP - General Physician Stone Operator 12/26/23 Geoffrey Forrest MD [address] [facility] [address] [place] [address] Consulting Physician Radiation Oncology 08/07/18 4 Bharat Corona MD [address] [place] [address] Referring Physician Gynecologic Oncology 08/07/1807/10 Lesa Good MD PhD [address] [place] [address] Radiation Oncologist Radiation Oncology 10/17/18 Robert Gifford MD [address]15 [facility] [address] [place] [address] Referring Physician Brick Baker 12/21/18 Nery Bassett MD [address]15 [facility] [address] [place] [address] Referring Physician Obstetrics and Gynecology 04/27/17 Mayur Zaragoza NP [address] [place] [address] Nurse Practitioner 10/24/19 Salima Emerson PA [address] [place] [address] Physician Stone Operator 10/24/19 Bharat Corona MD [address] [place] [address] Consulting Physician Gynecologic Oncology 07/16/20 Unknown, Notinfile 12/31/20 12/31/20 Robert Gifford MD [address] [place] [address] Referring Physician Brick Baker 12/31/20 Tamara Dia MD [address] [facility] [address] Consulting Physician Pain Management 01/23/24 documented as of this encounter
--- OUTSIDE RECORDS SUMMARY | 2025-02-21 11:03 | XMS_ITS | Encounter Summary ---
Author Organization [facility] Address [address] [place] [address] Phone Care Team Providers Care Financial Services Intern Name Role Phone KiSalima majano A PAC Primary Care Provider [phone] Mookie Foster MD Unavailable [phone] Encounter Details Date Type Department Care Team (Late st Contact Info) Description 12/21/2021 Telephone [facility] [address] [place] [address] Spencer Mcqueen MD [address] [place] [address] Social History Tobacco Use Types [...] on file Legal Sex Female 3:47 PM CURING SUPERVISOR Gender Identity Not on file Sexual Orientation Not on file COVID-19 Exposure Response Date Recorded In the last month, have you been in contact with someone who was confirmed or suspected to have Coronavirus / COVID-19? No / Unsure 11/25/2021 10:02 AM CURING SUPERVISOR documented as of this encounter Miscellaneous Notes * Telephone Encounter - Huber Doe DO - 12/21/2021 4:02 PM CST Noted, included dr foster NG SUPERVISOR * Telephone Encounter - Ina Morin - 12/21/2021 2:57 PM CST Called to reschedule pt CT SCAN. Patient decided that she is not coming [facility] She will be following up with treatment from another facility. Referring doctor has been alerted. Salima Emerson PAC spoke with Zeenat. NG SUPERVISOR documented in this encounter Plan of Treatment Not on file documented as of this encounter Visit Diagnoses Not on filedocumented in this encounter Additional Health Concerns Assessment Noted Time PHQ-9 Depression Total Score: 13 022 10:40 AM CURING SUPERVISOR documented as of this encounter Care Teams Financial Services Intern Relationship Specialty Start Date End Date Salima Emerson PAC [address] [place] [address] PCP - General Physician Language Instructor 11/22/21 Mookie Foster MD [address] [place] [address] Consulting Physician Oncology 11/22/21 documented as of this encounter
--- OUTSIDE RECORDS SUMMARY | 2025-02-21 11:03 | XMS_ITS | Encounter Summary ---
Author Organization [facility] Facility Care Team Providers Care Saddle Stitching Machine Operator Name Role Phone Karthik Triplett MD Primary Care Provide r Geoffrey Forrest MD Unavailable +[phone] Bharat Corona MD Unavailable +[phone] Lesa Good MD PhD Unavailable + Juanita Lobo Primary Care Provider U Patria Rajan NP Primary Care Provider [phone] Karthik Triplett MD Primary Care Provide r Robert Gifford MD Unavailable + [phone] Juanita Lobo Primary Care Provider U Juanita Kolb Primary Care Provider U Patria Rajan NP Primary Care Provider [phone] Juanita Lobo Primary Care Provider U Nery Salmon MD Unavailable +[phone] Mayur Zaragoza COLD MEAT CHEF Unavailable +[phone] Salima Emerson Unavailable +[phone] Nahomy Roger MD Primary Care Provider + [phone] Bharat Corona MD Unavailable +[phone] Unknown, Notinfile Unavailable Unavailable Robert Gifford MD Unavailable + [phone] Salima Emerson Primary Care Provider + Tamara Dia MD Primary Care Provider [phone] Salima Emerson Primary Care Provider + Tamara Dia MD Unavailable Encounter Details Date Type Department Care Team (Latest Contact Info) Description 01/24/2018 Orders Only [facility] CLINCONV ProviderSalbador MD [address] [place] [address] Social History Tobacco Use Types Packs/Day Years Used Date Smoking Tobacco: Every Day Comments Unknown Sex and Gender Information Value Date Recorded Sex Assigned at Not on file Legal Sex Female 5:05 AM CHROME PLATER Gender Identity Not on file Sexual Orientation Not on file documented as of this encounter Plan of Treatment Not on file documented as of this encounter Procedures Procedure Name Priority Date/Time Associated Diagnosis Comments SCAN - LABS 01/24/2018 12:00 AM CHROME PLATER documented in this encounter Results * SCAN - LABS (01/24/2018 12:00 AM CHROME PLATER) Narrative 01/24/2018 12:00 AM CHROME PLATER Ordered by an unspecified provider. Historical Provider Final Res ult documented in this encounter Visit Diagnoses Not on filedocumented in this encounter Additional Health Concerns Infection Onset Date Last Indicated Resolved Time COVID: Suspected 06/26/2022 06/26/2022 06/26/2022 6:52 PM CDT COVID: Suspected 03/22/2023 03/22/2023 03/22/2023 8:17 AM CDT COVID: Suspected 01/07/2024 01/07/2024 01/07/2024 12:50 PM CHROME PLATER COVID19 01/07/2024 01/07/2024 01/17/2024 3:05 AM CHROME PLATER COVID: Recovered Comment:Added based on recent COVID infection. 01/17/2024 01/22/2024 04/16/2024 3:05 AM C DT documented as of this encounter Care Teams Saddle Stitching Machine Operator Relationship Specialty Start Date End Date Karthik Triplett MD [address] [place] [address] PCP - General 05/05/17 11/28/18 Juanita Lobo [address] [place] [address] PCP - General 11/29/18 11/29/18 Patria Kearney NP [address] [facility] 100 [place] [address] PCP - General Nurse Practitioner 11/30/18 12/09/18 Karthik Triplett MD [address] [place] [address] PCP - General 12/10/18 01/09/19 Juanita Lobo [address] [place] [address] PCP - General 01/11/19 02/13/19 Juanita Lobo [address] [place] [address] PCP - General 01/10/19 01/10/19 Patria Kearney COLD MEAT CHEF [address] [place] [address] PCP - General 02/14/19 02/14/19 Juanita Lobo [address] [place] [address] PCP - General 02/15/19 01/01/20 Nahomy Roger MD [address] [place] [address] [address] [place] [address] PCP - General Family Medicine 01/02/20 05/18/21 Salima Emerson PA [address] [place] [address] PCP - General Physician Sales Development Representative 05/19/21 08/21/23 Tamara Dia MD 4700 [facility] [address] PCP - General Pain Management 08/22/23 12/25/23 Salima Emerson PA [address] [place] [address] [address] PCP - General Physician Sales Development Representative 12/26/23 eGoffrey Forrest MD [address] [facility] [address] [place] [address] Consulting Physician Radiation Oncology 08/07/18 Bharat Corona MD [address] [facility] 8064 [place] [address] Referring Physician Gynecologic Oncology 08/07/1807/10 Lesa Good MD PhD 4921 [facility] [address] [place] [address] Radiation Oncologist Radiation Oncology 10/17/18 Robert Gifofrd MD [address] [place] [address] Referring Physician Sales Research Analyst 12/21/18 Nery Bassett MD [address] [place] [address] Referring Physician Obstetrics and Gynecology 04/27/17 Mayur Zaragoza, MEDINA [address] [place] [address] Nurse Practitioner 10/24/19 Salima Emerson PA [address] [place] [address] Physician Sales Development Representative 10/24/19 Bharat Corona MD [address] [place] [address] Consulting Physician Gynecologic Oncology 07/16/20 Unknown, Notinfile 12/31/20 12/31/20 Robert Gifford MD Referring Physician Sales Research Analyst 12/31/20 Tamara Dia MD 47[address] [facility] [address] Consulting Physician Pain Management 01/23/24 documented as of this encounter
--- OUTSIDE RECORDS SUMMARY | 2025-02-21 11:03 | XMS_ITS | Encounter Summary ---
Author Organization [facility] Facility Care Team Providers Care Advertising Writer Name Role Phone Karthik Triplett MD Primary Care Provide r Unknown, Notinfile Primary Care Provider Unavail able Karthik Triplett MD Primary Care Provide r Geoffrey Forrest MD Unavailable [phone] Bharat Corona MD Unavailable + [phone] Lesa Good MD PhD Unavailable + Juanita Lobo Primary Care Provider U Patria Rajan SIGNALS INTELLIGENCE ANALYSIS MANAGER Primary Care Provider [phone] Karthik Triplett MD Primary Care Provide r Robert Gifford MD Unavailable + [phone] Juanita Lobo Primary Care Provider U Juanita Kolb Primary Care Provider U Patria Rajan NP Primary Care Provider [phone] Juanita Lobo Primary Care Provider U Nery Salmon MD Unavailable +[phone] Mayur Zaragoza NP Unavailable +[phone] Salima Emerson Unavailable + [phone] Nahomy Roger MD Primary Care Provider +[phone] Bharat Corona MD Unavailable +[phone] Unknown, Notinfile Unavailable Unavailable Robert Gifford MD Unavailable + [phone] Salima Emerson Primary Care Provider + Tamara Dia MD Primary Care Provider +[phone] Salima Emerson Primary Care Provider + Tamara Dia MD Unavailable Encounter Details Date Type Department Care Team (Latest Contact Info) Description 09/20/2016 Orders Only [facility]G CLINCONV Provider, MD Salbador [address] [place] [address] Social History Tobacco Use Types Packs/Day Years Used Date Smoking Tobacco: Never Assessed Comments Unknown Sex and Gender Information Value Date Recorded Sex Assigned at Not on file Legal Sex Female 5:05 AM PACKAGER HEAD Gender Identity Not on file Sexual Orientation Not on file documented as of this encounter Plan of Treatment Not on file documented as of this encounter Procedures Procedure Name Priority Date/Time Associated Diagnosis Comments PROCEDURE - RESULT 09/21/2016 12 :00 AM CDT documented in this encounter Results * PROCEDURE - RESULT (09/21/2016 12:00 AM CDT) Narrative 09/21/2016 12:00 AM CDT Ordered by an unspecified provider. Historical Provider Final Res ult documented in this encounter Visit Diagnoses Not on filedocumented in this encounter Additional Health Concerns Infection Onset Date Last Indicated Resolved Time COVID: Suspected 06/26/2022 06/26/2022 06/26/2022 6:52 PM CDT COVID: Suspected 03/22/2023 03/22/2023 03/22/2023 8:17 AM CDT COVID: Suspected 01/07/2024 01/07/2024 01/07/2024 12:50 PM PACKAGER HEAD COVID19 01/07/2024 01/07/2024 01/17/2024 3:05 AM PACKAGER HEAD COVID: Recovered Comment:Added based on recent COVID infection. 01/17/2024 01/22/2024 04/16/2024 3:05 AM C DT documented as of this encounter Care Teams Advertising Writer Relationship Specialty Start Date End Date Karthik Triplett MD [address] [place] [address] PCP - General 04/20/17 04/30/17 Unknown, Notinfile PCP - General 05/01/17 05/04/17 Karthik Triplett MD [address] [place] [address] PCP - General 05/05/17 11/28/18 Juanita Lobo [address] [address] PCP - General 11/29/18 11/29/18 Patria Kearney SIGNALS INTELLIGENCE ANALYSIS MANAGER [address] [address] PCP - General Nurse Practitioner 11/30/18 12/09/18 Karthik Triplett MD [address] [place] [address] PCP - General 12/10/18 01/09/19 Juanita Lobo [address] LL [facility] [address]24 [place] [address] PCP - General 01/11/19 02/13/19 Juanita Lobo [address] LL [facility] [address] [place] [address] PCP - General 01/10/19 01/10/19 Patria Kearney SIGNALS INTELLIGENCE ANALYSIS MANAGER [address] [facility] [address] [facility] [address] [place] [address] PCP - General 02/14/19 02/14/19 Juanita Lobo [address] [place] [address] PCP - General 02/15/19 01/01/20 Nahomy Roger MD [address] [place] [address] PCP - General Family Medicine 01/02/20 05/18/21 Salima Emerson PA [address] [place] [address] PCP - General Physician Electrical Service Technician 05/19/21 08/21/23 Tamara Dia MD [facility] [address] PCP - General Pain Management 08/22/23 12/25/23 Salima Emerson PA [address] [place] [address] [address] PCP - General Physician Electrical Service Technician 12/26/23 Geoffrey Forrest MD [address] [facility] [address] [place] [address] Consulting Physician Radiation Oncology 08/07/18 4 Bharat Corona MD [address] [place] [address] Referring Physician Gynecologic Oncology 08/07/1807/10 Lesa Good MD PhD [address] [place] [address] Radiation Oncologist Radiation Oncology 10/17/18 Robert Gifford MD 1215 [facility] 100 [place] [address] Referring Physician Online Content Coordinator 12/21/18 Nery Bassett MD 1215 [facility] 100 [place] [address] Referring Physician Obstetrics and Gynecology 04/27/17 Mayur Zaragoza NP [address] [place] [address] Nurse Practitioner 10/24/19 Salima Emerson PA [address] [place] [address] Physician Electrical Service Technician 10/24/19 Bharat Corona MD [address] [place] [address] Consulting Physician Gynecologic Oncology 07/16/20 Unknown, Notinfile 12/31/20 12/31/20 Robert Gifford MD [address] [place] [address] Referring Physician Online Content Coordinator 12/31/20 Tamara Dia MD 4700 [facility] [address] Consulting Physician Pain Management 01/23/24 documented as of this encounter
--- OUTSIDE RECORDS SUMMARY | 2025-02-21 11:03 | XMS_ITS | Encounter Summary ---
Author Organization [facility] Address [address] [place] [address] Phone Care Team Providers Care Pediatric Psychologist Name Role Phone Salima Emerson PAC Primary Care Provider [phone] Mookie Foster MD Unavailable +[phone] Encounter Details Date Type Department Care Team (Late st Contact Info) Description 12/21/2021 Telephone [facility] 95[address] [facility] [address] [place] [address] Mookie Foster MD 1052 [facility] [address] [place] [address] Social History Tobacco Use Types Packs/Day Years [...] on file Legal Sex Female 3:47 PM SUPPLEMENTAL MANAGER Gender Identity Not on file Sexual Orientation Not on file COVID-19 Exposure Response Date Recorded In the last month, have you been in contact with someone who was confirmed or suspected to have Coronavirus / COVID-19? No / Unsure 11/25/2021 10:02 AM SUPPLEMENTAL MANAGER documented as of this encounter Plan of Treatment Not on file documented as of this encounter Visit Diagnoses Not on filedocumented in this encounter Additional Health Concerns Assessment Noted Time PHQ-9 Depression Total Score: 13 022 10:40 AM SUPPLEMENTAL MANAGER documented as of this encounter Care Teams Pediatric Psychologist Relationship Specialty Start Date End Date Salima Emerson PAC [address] [place] [address] PCP - General Physician Continuous Improvement Consultant 11/22/21 Mookie Foster MD [address] [place] [phone] Consulting Physician Oncology 11/22/21 documented as of this encounter
--- OUTSIDE RECORDS SUMMARY | 2025-02-21 11:03 | XMS_ITS | Encounter Summary ---
Author Organization [facility] Facility Care Team Providers Care Entry Level Drafter Name Role Phone Karthik Triplett MD Primary Care Provide r Geoffrye Forrest MD Unavailable [phone] Bharat Corona MD Unavailable [phone] Lesa Good MD PhD Unavailable + Juanita Lobo Primary Care Provider U Patria Rajan NP Primary Care Provider [phone] Karthik Triplett MD Primary Care Provide r Robert Gifford MD Unavailable + [phone] Juanita Lobo Primary Care Provider U Juanita Kolb Primary Care Provider U Patria Rajan NP Primary Care Provider [phone] Juanita Lobo Primary Care Provider U Nery Salmon MD Unavailable +[phone] Mayur Zaragoza SOLUTION DESIGNER Unavailable +[phone] Salima Emerson Unavailable [phone] Nahomy Roger MD Primary Care Provider + [phone] Bharat Corona MD Unavailable +[phone] Unknown, Notinfile Unavailable Unavailable Robert Gifford MD Unavailable + [phone] Salima Emerson Primary Care Provider + Tamara Dia MD Primary Care Provider [phone] Salima Emerson Primary Care Provider + Tamara Dia MD Unavailable Encounter Details Date Type Department Care Team (Latest Contact Info) Description 10/12/2017 Orders Only [facility] CLINCONV ProviderSalbador MD [address] [place] [address] Social History Tobacco Use Types Packs/Day Years Used Date Smoking Tobacco: Every Day Comments Unknown Sex and Gender Information Value Date Recorded Sex Assigned at Not on file Legal Sex Female 5:05 AM GAS AND OIL SERVICER Gender Identity Not on file Sexual Orientation Not on file documented as of this encounter Plan of Treatment Not on file documented as of this encounter Procedures Procedure Name Priority Date/Time Associated Diagnosis Comments SCAN - LABS 10/17/2017 12:00 AM GAS AND OIL SERVICER documented in this encounter Results * SCAN - LABS (10/17/2017 12:00 AM GAS AND OIL SERVICER) Narrative 10/17/2017 12:00 AM GAS AND OIL SERVICER Ordered by an unspecified provider. Historical Provider Final Res ult documented in this encounter Visit Diagnoses Not on filedocumented in this encounter Additional Health Concerns Infection Onset Date Last Indicated Resolved Time COVID: Suspected 06/26/2022 06/26/2022 06/26/2022 6:52 PM CDT COVID: Suspected 03/22/2023 03/22/2023 03/22/2023 8:17 AM CDT COVID: Suspected 01/07/2024 01/07/2024 01/07/2024 12:50 PM GAS AND OIL SERVICER COVID19 01/07/2024 01/07/2024 01/17/2024 3:05 AM GAS AND OIL SERVICER COVID: Recovered Comment:Added based on recent COVID infection. 01/17/2024 01/22/2024 04/16/2024 3:05 AM C DT documented as of this encounter Care Teams Entry Level Drafter Relationship Specialty Start Date End Date Karthik Triplett MD [address] [place] [address] PCP - General 05/05/17 11/28/18 Juanita Lobo [address] [place] [address] PCP - General 11/29/18 11/29/18 Patria Kearney NP 1215 [facility] 100 [place] [address] PCP - General Nurse Practitioner 11/30/18 12/09/18 Karthik Triplett MD [address] [place] [address] PCP - General 12/10/18 01/09/19 Juanita Lobo [address] [place] [address] PCP - General 01/11/19 02/13/19 Juanita Lobo [address] [place] [address] PCP - General 01/10/19 01/10/19 Patria Kearney SOLUTION DESIGNER [address] [place] [address] PCP - General 02/14/19 02/14/19 Juanita Lobo [address] [place] [address] PCP - General 02/15/19 01/01/20 Nahomy Roger MD [address] [place] [address] [address] [place] [address] PCP - General Family Medicine 01/02/20 05/18/21 Salima Emerson PA [address] [place] [address] PCP - General Physician Direct Support Staff Member 05/19/21 08/21/23 Tamara Dia MD 4700 [facility] [address] PCP - General Pain Management 08/22/23 12/25/23 Salima Emerson PA [address] [place] [address] [address] PCP - General Physician Direct Support Staff Member 12/26/23 Geoffrey Forrest MD [address] [facility] [address] [place] [address] Consulting Physician Radiation Oncology 08/07/18 Bharat Corona MD [address] [facility] [address]64 [place] [address] Referring Physician Gynecologic Oncology 08/07/1807/10 Lesa Good MD PhD 4921 [facility] [address] [place] [address] Radiation Oncologist Radiation Oncology 10/17/18 Robert Gifford MD [address] [place] [address] Referring Physician Venetian Blind Tape Cutter 12/21/18 Nery Bassett MD [address] [place] [address] Referring Physician Obstetrics and Gynecology 04/27/17 Mayur Zaragoza, MEDINA [address] [place] [address] Nurse Practitioner 10/24/19 Salima Emerson PA [address] [place] [address] Physician Direct Support Staff Member 10/24/19 Bharat Corona MD [address] [place] [address] Consulting Physician Gynecologic Oncology 07/16/20 Unknown, Notinfile 12/31/20 12/31/20 Robert Gifford MD Referring Physician Venetian Blind Tape Cutter 12/31/20 Tamara Dia MD 4700 [facility]ENTER[address] [address] Consulting Physician Pain Management 01/23/24 documented as of this encounter
--- OUTSIDE RECORDS SUMMARY | 2025-02-21 11:03 | XMS_ITS | Encounter Summary ---
Author Organization [facility] Care Team Providers Care Senior Energy Analyst Name Role Phone Karthik Triplett MD Primary Care Provide r Unknown, Notinfile Primary Care Provider Unavail able Karthik Triplett MD Primary Care Provide r Geoffrey Forrest MD Unavailable [phone] Bharat Corona MD Unavailable + [phone] Lesa Good MD PhD Unavailable + Juanita Lobo Primary Care Provider U Patria Rajan SHEET METAL WORKER SUPERVISOR Primary Care Provider [phone] Karthik Triplett MD Primary Care Provide r Robert Gifford MD Unavailable + [phone] Juanita Lobo Primary Care Provider U Juanita Kolb Primary Care Provider U Patria Rajan NP Primary Care Provider [phone] Juanita Lobo Primary Care Provider U Nery Salmon MD Unavailable +[phone] Mayur Zaragoza NP Unavailable +[phone] Salima Emerson Unavailable + [phone] Nahomy Roger MD Primary Care Provider [phone] Bharat Corona MD Unavailable +[phone] Unknown, Notinfile Unavailable Unavailable Robert Gifford MD Unavailable + [phone] Salima Emerson Primary Care Provider + Tamara Dia MD Primary Care Provider +[phone] Salima Emerson Primary Care Provider + Tamara Dia MD Unavailable Encounter Details Date Type Department Care Team (Latest Contact Info) Description 09/21/2016 Orders Only MMG CLINCONV Provider, MD Salbador [address] [place] [address] Social History Tobacco Use Types Packs/Day Years Used Date Smoking Tobacco: Never Assessed Comments Unknown Sex and Gender Information Value Date Recorded Sex Assigned at Not on file Legal Sex Female 5:05 AM WHEEL AND PINION INSPECTOR Gender Identity Not on file Sexual Orientation Not on file documented as of this encounter Plan of Treatment Not on file documented as of this encounter Procedures Procedure Name Priority Date/Time Associated Diagnosis Comments PROCEDURE - RESULT 09/22/2016 12 :00 AM CDT documented in this encounter Results * PROCEDURE - RESULT (09/22/2016 12:00 AM CDT) Narrative 09/22/2016 12:00 AM CDT Ordered by an unspecified provider. Historical Provider Final Res ult documented in this encounter Visit Diagnoses Not on filedocumented in this encounter Additional Health Concerns Infection Onset Date Last Indicated Resolved Time COVID: Suspected 06/26/2022 06/26/2022 06/26/2022 6:52 PM CDT COVID: Suspected 03/22/2023 03/22/2023 03/22/2023 8:17 AM CDT COVID: Suspected 01/07/2024 01/07/2024 01/07/2024 12:50 PM WHEEL AND PINION INSPECTOR COVID19 01/07/2024 01/07/2024 01/17/2024 3:05 AM WHEEL AND PINION INSPECTOR COVID: Recovered Comment:Added based on recent COVID infection. 01/17/2024 01/22/2024 04/16/2024 3:05 AM C DT documented as of this encounter Care Teams Senior Energy Analyst Relationship Specialty Start Date End Date Karthik Triplett MD [address] [place] [address] PCP - General 04/20/17 04/30/17 Unknown, Notinfile PCP - General 05/01/17 05/04/17 Karthik Triplett MD [address] [place] [address] PCP - General 05/05/17 11/28/18 Juanita Lobo [address] [address] PCP - General 11/29/18 11/29/18 Patria Kearney SHEET METAL WORKER SUPERVISOR [address] [address] PCP - General Nurse Practitioner 11/30/18 12/09/18 Karthik Triplett MD [address] [place] [address] PCP - General 12/10/18 01/09/19 Juanita Lobo [address] LL [facility] [address]24 [place] [address] PCP - General 01/11/19 02/13/19 Juanita Lobo [address] LL [facility] [address] [place] [address] PCP - General 01/10/19 01/10/19 Patria Kearney SHEET METAL WORKER SUPERVISOR 1215 [facility] 100 [place] [address] PCP - General 02/14/19 02/14/19 Juanita Lobo [address] [place] [address] PCP - General 02/15/19 01/01/20 Nahomy Roger MD [address] [place] [address] PCP - General Family Medicine 01/02/20 05/18/21 Salima Emerson PA [address] [place] [address] PCP - General Physician Support Analyst 05/19/21 08/21/23 Tamara Dia MD [facility] PAIN CENTER[address] [address] PCP - General Pain Management 08/22/23 12/25/23 Salima Emerson PA [address] [place] [address] [address] PCP - General Physician Support Analyst 12/26/23 Geoffrey Forrest MD [address] [facility] [address] [place] [address] Consulting Physician Radiation Oncology 08/07/18 4 Bharat Corona MD [address] [place] [address] Referring Physician Gynecologic Oncology 08/07/1807/10 Lesa Good MD PhD [address] [place] [address] Radiation Oncologist Radiation Oncology 10/17/18 Robert Gifford MD 1215 [facility] 100 [place] [address] Referring Physician Marketing Content Specialist 12/21/18 Nery Bassett MD 1215 [facility] 100 [place] [address] Referring Physician Obstetrics and Gynecology 04/27/17 Mayur Zaragoza NP [address] [place] [address] Nurse Practitioner 10/24/19 Salima Emerson PA [address] [place] [address] Physician Support Analyst 10/24/19 Bharat Corona MD [address] [place] [address] Consulting Physician Gynecologic Oncology 07/16/20 Unknown, Notinfile 12/31/20 12/31/20 Robert Gifford MD [address] [place] [address] Referring Physician Marketing Content Specialist 12/31/20 Tamara Dia MD [address]00 [facility] PA[facility] CENTER[address] [address] Consulting Physician Pain Management 01/23/24 documented as of this encounter
--- OUTSIDE RECORDS SUMMARY | 2025-02-21 11:03 | XMS_ITS ---
Author Organization [facility] Address [address], [facility] [address] [place] [address] Phone Care Team Providers Care Correctional Probation Officer Name Role Phone Salima Emreson PAC Primary Care Provider + [phone] Mookie Foster MD Unavailable +[phone] Active Problems Problem Noted Date Diagnosed Date Ovarian cancer Current Treatment and Therapy Plans SUPPORT - HYDRATION WITH ADDITIVES + ANTIEMETICS - CCSCI* Plan Start Date: 11/25/2021 Plan Provider:Mookie Foster MD Linked Problems Malignant neoplasm of ovary, unspecified laterality (HCC) Treatment Medications No medications scheduled. Past Treatment and Therapy Plans No past plan information found.
--- OUTSIDE RECORDS SUMMARY | 2025-02-21 11:03 | XMS_ITS | Encounter Summary ---
Author Organization [facility] Facility Care Team Providers Care Cash Application Representative Name Role Phone Karthik Triplett MD Primary Care Provide r Geoffrey Forrest MD Unavailable [phone] Bharat Corona MD Unavailable [phone] Lesa Good MD PhD Unavailable + Juanita Lobo Primary Care Provider U Patria Rajan NP Primary Care Provider [phone] Karthik Triplett MD Primary Care Provide r Robert Gifford MD Unavailable + [phone] Juanita Lobo Primary Care Provider U Juanita Kolb Primary Care Provider U Patria Rajan NP Primary Care Provider [phone] Juanita Lobo Primary Care Provider U Nery Salmon MD Unavailable [phone] Mayur Zaragoza CUSTODIAL WORKER Unavailable [phone] Salima Emerson Unavailable + [phone] Nahomy Roger MD Primary Care Provider + [phone] Bharat Corona MD Unavailable +[phone] Unknown, Notinfile Unavailable Unavailable Robert Gifford MD Unavailable + [phone] Salima Emerson Primary Care Provider + Tamara Dia MD Primary Care Provider [phone] Salima Emerson Primary Care Provider + Tamara Dia MD Unavailable Encounter Details Date Type Department Care Team (Latest Contact Info) Description 05/18/2017 Orders Only [facility] CLINCONV ProviderSalbador MD [address] [place] [address] Social History Tobacco Use Types Packs/Day Years Used Date Smoking Tobacco: Every Day Comments Unknown Sex and Gender Information Value Date Recorded Sex Assigned at Not on file 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 Historical Provider Final Res ult documented in this encounter Visit Diagnoses Not on filedocumented in this encounter Additional Health Concerns Infection Onset Date Last Indicated Resolved Time COVID: Suspected 06/26/2022 06/26/2022 06/26/2022 6:52 PM CDT COVID: Suspected 03/22/2023 03/22/2023 03/22/2023 8:17 AM CDT COVID: Suspected 01/07/2024 01/07/2024 01/07/2024 12:50 PM STORE LOSS PREVENTION MANAGER COVID19 01/07/2024 01/07/2024 01/17/2024 3:05 AM STORE LOSS PREVENTION MANAGER COVID: Recovered Comment:Added based on recent COVID infection. 01/17/2024 01/22/2024 04/16/2024 3:05 AM C DT documented as of this encounter Care Teams Cash Application Representative Relationship Specialty Start Date End Date Karthik Triplett MD [address] [place] [address] PCP - General 05/05/17 11/28/18 Juanita Lobo [address] [place] [address] PCP - General 11/29/18 11/29/18 Patria Kearney NP [address] [facility] [address] [place] [address] PCP - General Nurse Practitioner 11/30/18 12/09/18 Karthik Triplett MD [address] [place] [address] PCP - General 12/10/18 01/09/19 Juanita Lobo [address] [place] [address] PCP - General 01/11/19 02/13/19 Juanita Lobo [address] [place] [address] PCP - General 01/10/19 01/10/19 Patria Kearney CUSTODIAL WORKER [address] [place] [address] PCP - General 02/14/19 02/14/19 Juanita Lobo [address] [facility] [address] [place] [address] PCP - General 02/15/19 01/01/20 Nahomy Roger MD [address] [place] [address] [address] [place] [address] PCP - General Family Medicine 01/02/20 05/18/21 Salima Emerson PA [address] [place] [address] PCP - General Physician Disk Operator 05/19/21 08/21/23 [place] [address] [place] [address] [address] PCP - General Pain Management 08/22/23 12/25/23 Salima Emerson PA [address] [place] [address] [address] PCP - General Physician Disk Operator 12/26/23 Geoffrey Forrest MD [address] [facility] [address] [place] [address] Consulting Physician Radiation Oncology 08/07/18 Bharat Corona MD [address] [facility] [address] [place] [address] Referring Physician Gynecologic Oncology 08/07/1807/10 Lesa Good MD PhD [address] [facility] [address] [place] [address] Radiation Oncologist Radiation Oncology 10/17/18 Robert Gifford MD [address] [place] [address] Referring Physician Java Development Manager 12/21/18 Nery Bassett MD [address] [place] [address], [place] [address] Referring Physician Obstetrics and Gynecology 04/27/17 Mayur Zaragoza, MEDINA [address] [place] [address] Nurse Practitioner 10/24/19 Salima Emerson PA [address] [place] [address] Physician Disk Operator 10/24/19 Bharat Corona MD [address] [place] [address] Consulting Physician Gynecologic Oncology 07/16/20 Unknown, Notinfile 12/31/20 12/31/20 Robert Gifford MD Referring Physician Java Development Manager 12/31/20 Tamara Dia MD [address] [facility] [address] Consulting Physician Pain Management 01/23/24 documented as of this encounter
--- OUTSIDE RECORDS SUMMARY | 2025-02-21 11:03 | XMS_ITS | Encounter Summary ---
Author Organization [facility] Address [address] [place] [address] Phone Care Team Providers Care Bilingual Receptionist Name Role Phone Salima Emerson PAC Primary Care Provider [phone] Mookie Foster MD Unavailable [phone] Encounter Details Date Type Department Care Team (Late st Contact Info) Description 11/29/2021 Telephone [facility] [address] [place] [address] Mookie Foster MD [address] [facility] [place] [address] [address] Social History Tobacco Use Types Packs/Day [...] on file Legal Sex Female 3:47 PM HEALTHCARE OR MEDICAL Gender Identity Not on file Sexual Orientation Not on file COVID-19 Exposure Response Date Recorded In the last month, have you been in contact with someone who was confirmed or suspected to have Coronavirus / COVID-19? No / Unsure 11/25/2021 10:02 AM HEALTHCARE OR MEDICAL documented as of this encounter Miscellaneous Notes * Telephone Encounter - Lesa Mora - 11/29/2021 11:16 AM CST Patient called to cancel her CT On 12/03 and office visit on 12/09 because she says she doesn't feel good. She will rescheduled once she feels better. THCARE OR MEDICAL documented in this encounter Plan of Treatment Not on file documented as of this encounter Visit Diagnoses Not on filedocumented in this encounter Additional Health Concerns Assessment Noted Time PHQ-9 Depression Total Score: 13 022 10:40 AM HEALTHCARE OR MEDICAL documented as of this encounter Care Teams Bilingual Receptionist Relationship Specialty Start Date End Date Salima Emerson PAC [address] [place] [address] PCP - General Physician Try On Baster 11/22/21 Mookie Foster MD [address] [place] [phone] Consulting Physician Oncology 11/22/21 documented as of this encounter
== END 2025-02-21 10:31 | disposition home or self-care (01) ==
PROVIDERS: PCP Physician Assistant; Visit Provider Physician Assistant
DX: N28.1 Cyst of kidney, acquired (principal)
CPT/HCPCS: 76775

== ENCOUNTER 2025-07-02 19:41 | Inpatient (IN) | payer MEDICARE, MEDICAID, SELFPAY ==
--- NOTE | ~2025-07-02 | CT_ITS ---
EXAMINATION: CT abdomen pelvis w con DATE: 07/03/2025 03:42 INDICATION: Abdomen pain. Elevated white blood cell count. TECHNIQUE: Computed tomography (CT) of the abdomen and pelvis was performed with 100 cc Omnipaque 350 intravenous contrast. The dose-length product was 324.74 mGy-cm. Automated exposure control and iter ative reconstruction technique were employed. COMPARISON: CT dated 10/19/2021. FINDINGS: Heart size normal. Trace pericardial effusion. No significant pleural effusion. Patchy reti culonodular densities in the lingula and left lower lobe, suspicious for pneumonia. There is ar 7 mm left lower lobe nodule. No significant vascular abnormality. No lymphadenopathy. The liver, spleen, pancreas, adrenal glands and left kidney are unremarkable. There is a right renal cyst measuring 4.6 cm. Gallbladder is contra cted. Small supraumbilical ventral hernia containing fat. There is abnormal thickening of the colon beginning at the splenic flexure extending into the descend ing colon and sigmoid colon with mild surrounding fatty infiltration, consistent with colitis, most l ikely infectious or inflammatory. IMPRESSION: 1. Abnormally thickened left colon consistent with colitis, most likely infectious/inflammatory. 2: Patchy reticulonodular densities left lower lobe with associated 7 mm nodule, most likely infectio us/inflammatory. Recommend follow-up CT in 3 months to assess for resolution. Reviewed, dictated and finalized at location A. IMPRESSION: 1. Abnormally thickened left colon consistent with colitis, most likely infecti ous/inflammatory. 2: Patchy reticulonodular densities left lower lobe with associated 7 mm nodule , most likely infectious/inflammatory. Recommend follow-up CT in 3 months to as sess for resolution.
--- NOTE | ~2025-07-02 | MR_ITS ---
EXAMINATION: MR lumbar spine wo con DATE: 07/08/2025 17:03 INDICATION: Assess for possible compression fracture. TECHNIQUE: Magnetic resonance imaging (MRI) of the lumbar spine was performed without intravenous contrast. Sequences included sagittal T2-weighted FSE, sagittal T2-weighted FS FSE, sagittal T1-weighted FSE, and axial T2-weighted FSE. COMPARISON: Lumbar spine MR dated 03/29/2022 and regressed 07/08/2025 FINDINGS: 9 degrees lumbar dextrocurvature. Unchanged 6 mm anterolisthesis L3 on L4, 2 mm retrolisthesis L4 on L5 and 4 mm anterolisthesis L5 on S1. There is a relatively recent L1 burst fracture with increased fluid signal extending along the horizontal fracture plane. There is up to 20% central vertebral body height loss as well as 4 mm retropulsion along the posterior endplate. Remaining vertebral body heights are normal. Chronic bilateral pars interarticularis defects at L3. Severe disc height loss at L3-L4 and L4-L5, moderate disc height loss at L5-S1 and T10-T11 and T11-T12. The conus medullaris terminates at L1-L2. There is normal signal in the caudal spinal cord. Partially visualized at least 4.7 cm right renal cyst. Mild paravertebral edema near the L1 burst fracture. The following disc levels are specifically discussed: T12-L1: Mild disc bulge. There is mild bilateral facet joint osteoarthritis. There is no neural foraminal stenosis. There is no central canal stenosis at the level of the disc space. There is mild central canal stenosis more caudally at the level of the midportion of the L1 vertebral body resulting from the retropulsion. L1-L2: The disc does not extend beyond the endplate margin. There is mild bilateral facet joint osteoarthritis. There is minimal right and mild left neural foraminal stenosis. There is no central canal stenosis. L2-L3: There are small bilateral foraminal zone disc protrusions. There is moderate bilateral facet joint osteoarthritis. There is mild right and mild to moderate left neural foraminal stenosis. There is no central canal stenosis. L3-L4: Annular fissure and central disc extrusion extending from foraminal zone to foraminal zone with this material extending up to 6 palmar cephalad to the level of the inferior endplate of L3. There is moderate bilateral facet joint osteoarthritis. Chronic bilateral L3 pars interarticularis defects. There is moderate right and moderate to severe left neural foraminal stenosis. There is mild central canal stenosis. L4-L5: Mild disc is bulging with superimposed annular fissure and central to right foraminal zone disc extrusion with disc material extending up to 4 mm cephalad to the level of the inferior endplate of L4. There is severe bilateral facet joint osteoarthritis. There is moderate left and moderate to severe right neural foraminal stenosis. There is mild central canal stenosis. L5-S1: Annular fissure and central disc extrusion extending from foraminal zone to foraminal zone with disc material extending up to 4 mm cephalad to the level of the inferior endplate of L5. There is severe bilateral right greater than left facet joint osteoarthritis. There is moderate to severe bilateral neural foraminal stenosis. There is mild central canal stenosis. IMPRESSION: 1. Relatively recent L1 burst fracture with 20% central vertebral body height loss and up to 4 mm retropulsion contributing to new mild central canal stenosis at this level. 2. Otherwise unchanged severe lumbar spondylosis. 3. 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 Reviewed, dictated and finalized at location A. IMPRESSION: 1. Relatively recent L1 burst fracture with 20% central vertebral body height l oss and up to 4 mm retropulsion contributing to new mild central canal stenosis at this level. 2. Otherwise unchanged severe lumbar spondylosis. 3. Chronic L3 spondylolysis with chronic bilateral pars interarticularis defect s and unchanged 6 mm anterolisthesis and L3 on L4.
--- NOTE | ~2025-07-02 | XR_ITS ---
EXAMINATION: XR lumbar spine 2-3V DATE: 07/08/2025 11:01 INDICATION: Back pain TECHNIQUE: 3 images of the lumbar spine were obtained COMPARISON: MRI lumbar spine 03/29/2022; CT abdomen pelvis 07/03/2025. FINDINGS: Mild dextroconvex curvature of the lumbar spine. Bones appear osteopenic. Prior surgical changes are noted in the abdomen. There is bowel gas and stool projecting over the pelvis which limits evaluation. Bony irregularity of the superior endplate of the L1 vertebral body with 25% vertebral body height loss. The finding is new as compared to the MRI of the lumbar spine from 2019. A compression fracture of indeterminate age is suspected. No other compression fracture in the lumbar spine. Grade 1 anterolisthesis of L3 on L4. Severe joint space narrowing at the L3-L4, L4-5 and L5-S1 levels. Extensive degenerative change throughout the lumbar facet joints. IMPRESSION: 1. Bony irregularity of the superior endplate of the L1 vertebral body with 25% vertebral body height loss. The finding is new as compared to the MRI of the lumbar spine from 2019. A compression fracture of indeterminate age is suspected. If concern for an acute compression fracture, consider an MRI of the lumbar spine for further assessment. 2. Extensive degenerative change in the mid and lower lumbar spine. 3. Grade 1 anterolisthesis of L3 on L4. Reviewed, dictated and finalized at location A. IMPRESSION: 1. Bony irregularity of the superior endplate of the L1 vertebral body with 25% vertebral body height loss. The finding is new as compared to the MRI of the l umbar spine from 2019. A compression fracture of indeterminate age is suspected . If concern for an acute compression fracture, consider an MRI of the lumbar s pine for further assessment. 2. Extensive degenerative change in the mid and lower lumbar spine. 3. Grade 1 anterolisthesis of L3 on L4.
--- NOTE | ~2025-07-02 | MR_ITS ---
EXAMINATION: MR brain/brain stem wo/w con DATE: 07/04/2025 12:01 INDICATION: Weakness with possible syncope TECHNIQUE: Magnetic resonance imaging (MRI) of the brain and brainstem was performed without and with 12 mL Multihance intravenous contrast. Sequences included sagittal and axial T1-weighted SE, axial d iffusion-weighted FS SE, axial 3D SWAN, axial T2-weighted FLAIR, and axial T2-weighted FSE. Postcontr ast axial and coronal T1-weighted SE was obtained. Apparent diffusion coefficient (ADC) maps were cre ated. COMPARISON: None. FINDINGS: Small old lacunar infarct at the body of the right caudate nucleus. There are no areas of restricted diffusion to suggest acute infarction. No intracranial hemorrhage or abnormal intracranial mass lesio n. Mild scattered nonspecific increased T2-weighted signal intensity in the cerebral white matter, pr edominantly involving the deep and periventricular white matter. There are no intraparenchymal signal abnormalities seen on the other pulse sequences. The ventricles are symmetric and normal in size. Th ere are no abnormal extra-axial fluid collections. Flow voids are seen in the cerebral arteries on th e T2-weighted sequences consistent with their expected patency. Mild mucosal thickening the bilateral ethmoid sinuses. There are some mucus layering dependently in the right sphenoid sinus. Visualized o rbits and soft tissues are unremarkable. There are no areas of abnormal enhancement on the post contr ast images. IMPRESSION: 1. Aging brain with chronic old lacunar infarct at the right caudate nucleus. No acute intracranial p rocess or abnormally enhancing brain lesions. Reviewed, dictated and finalized at location A. IMPRESSION: 1. Aging brain with chronic old lacunar infarct at the right caudate nucleus. N o acute intracranial process or abnormally enhancing brain lesions.
--- NOTE | ~2025-07-02 | CT_ITS ---
EXAMINATION: CT brain wo con DATE: 07/03/2025 02:23 INDICATION: Weakness. TECHNIQUE: Computed tomography (CT) of the head was performed without intravenous contrast. The dose- length product was 681.00 mGy-cm. Automated exposure control and iterative reconstruction technique w ere employed. COMPARISON: CT dated 04/06/2023 FINDINGS: Chronic right lacunar infarction involving the caudate nucleus. Brain parenchymal volume no rmal for age. No acute intracranial hemorrhage, infarction, mass or mass effect is no ventriculomegal y or midline shift. There is intracranial atherosclerosis. There is mild mucosal thickening of the sp henoid sinuses. Mastoids are pneumatized. No depressed skull fractures. IMPRESSION: 1. No acute intracranial abnormality. 2: Chronic right lacunar infarction. 3: Mild sinus disease. Reviewed, dictated and finalized at location A.
--- NOTE | ~2025-07-02 | US_ITS ---
EXAMINATION: US carotid duplex BI DATE: 07/04/2025 11:34 INDICATION: Syncope TECHNIQUE: Grayscale, color Doppler, and pulsed Doppler images of the cervical carotid arteries were obtained. The degree of vessel stenosis is placed in one of the following categories: normal, <50%, 5 0-69%, >=70% but less than near-occlusion, near-occlusion, or total occlusion. Note that percent sten osis relative to normal distal artery lumen diameter is indirectly measured from velocity measurement s as described by Antoine, et al. Radiology 2003; 229:340-346. COMPARISON: None. FINDINGS: RIGHT: The right common carotid artery (CCA) peak systolic velocity (PSV) is 73 cm/s. The right internal car otid artery (ICA) PSV is 76 cm/s. The right ICA end-diastolic velocity (EDV) is 28 cm/s. The right IC A/CCA PSV ratio is 1.0. Grayscale and color Doppler images yield an estimate of <50% diameter reducti on from plaque in the ICA. The external carotid artery (ECA) PSV is 72 cm/s. There is antegrade flow in the right vertebral artery. LEFT: The left CCA PSV is 71 cm/s. The left ICA PSV is 89 cm/s. The left ICA EDV is 35 cm/s. The left ICA/C CA PSV ratio is 1.3. Grayscale and color Doppler images yield an estimate of <50% diameter reduction from plaque in the ICA. The ECA PSV is 64 cm/s. There is antegrade flow in the left vertebral artery. IMPRESSION: 1. <50% stenosis in the right internal carotid artery. 2. <50% stenosis in the left internal carotid artery. Reviewed, dictated and finalized at location A.
--- OUTSIDE RECORDS SUMMARY | 2025-07-02 19:43 | XMS_ITS | Clinical Summary ---
Author Organization [facility] Address [address] [place] [address] Care Team Providers Care Information Security Analyst Name Role Phone Salima Emerson PA-C Primary Care Provider [phone] Allergies Active Allergy Reactions Criticality Noted Date [...] Overview (05/03/2020): Possible ovarian cancer, following with [facility] Lumbar canal stenosis 01/01/2014 Lumbar degenerative disc disease 01/01/2014 Spondylolisthesis of lumbar region 01/01/2014 Resolved Problems Problem Noted Date Diagnosed Date Resolved Date Encounter for preventive health examination 12/04/2013 07/31/2020 Immunizations Immunization Administration Dates Next Due Influenza (Generic) 09/20/2015 [...] Comments Blood Pressure 152/90 11/21/2021 9:36 PM VENEER CUTTER Pulse 65 11/22/2021 11:07 AM VENEER CUTTER Temperature 36.6 C (97.9 F) 11/21/2021 2:24 PM VENEER CUTTER Respiratory Rate 18 11/22/2021 11:07 AM VENEER CUTTER Oxygen Saturation 99% 11/22/2021 11:07 AM VENEER CUTTER Inhaled Oxygen Concentration - - Weight 59 kg (130 lb 1.1 oz) 11/21/2021 2:24 PM VENEER CUTTER Height 167.6 cm (5' 6) 11/21/2021 2:24 PM VENEER CUTTER Body Mass Index 20.99 11/21/2021 2:24 PM VENEER CUTTER Plan of Treatment Health Maintenance Due Date Last Done Comments Colorectal Cancer Screening Colonoscopy (10 Years) 1955 DTaP, Tdap and Td Vaccines ( 1 - Tdap) 1975 Mammogram Screening 1996 RSV Immunization or 60+ Years (1 - Risk 60-74 years 1-dose series) 2016 Pneumococcal Vaccine: 50+ Years (2 of 2 - PCV) 05/02/2018 05/02/2017, 09/02/2008 Annual Medicare Wellness Visit 2021 Dexa Scan (General) 2021 COVID-19 Vaccine (2023-2 5 season) 2024 Hepatitis C Completed 02/08/2010 Zoster Vaccines Completed 11/08/2019, 08/27/2019 Meningococcal B Vaccine Aged Out No l onger eligible based on patient's age to complete this topic Meningococcal Vaccine Aged Out No luly lavelle eligible based on patient's age to complete this topic RSV Immunizations Under 20 Months Aged Out No longer eligible b ased on patient's age to complete this topic Goals Goal Patient Goal Type Associated Problems Recent Progress Patient-Stated? Author Patient will return to prior living situation and remain independent in ADLs upon discharge from hospital General No Zena Amador, RN Insurance [address] [place] [address] MEDICAID MEDICARE [address] [place] [address] MEDICAID MEDICARE Advance Directives Documents on File Type Date Recorded Patient Marketing And Promotions Manager Expl anation Advance Directives and Living Will [...] 12:40 PM 05/03/2020 3:01 PM Care Teams Information Security Analyst Relationship Specialty Start Date End Date Salima Emerson PA-C [address] [place] [address] PCP - General NURSE PRACTITIONER 05/03/20
--- OUTSIDE RECORDS SUMMARY | 2025-07-02 19:44 | XMS_ITS | Encounter Summary ---
Author Organization [facility] Address [address] [place] [address] Phone Care Team Providers Care Speed Runner Name Role Phone KiSalima majano A PAC Primary Care Provider [phone] Mookie Foster MD Unavailable [phone] Encounter Details Date Type Department Care Team (Late st Contact Info) Description 12/21/2021 Telephone [facility] [address] [place] [address] Huber Doe, DO [address] [place] [address] Social History Tobacco Use Types [...] on file Legal Sex Female 3:47 PM CHECK AND TRANSFER BEADER Gender Identity Not on file Sexual Orientation Not on file COVID-19 Exposure Response Date Recorded In the last month, have you been in contact with someone who was confirmed or suspected to have Coronavirus / COVID-19? No / Unsure 11/25/2021 10:02 AM CHECK AND TRANSFER BEADER documented as of this encounter Miscellaneous Notes * Telephone Encounter - Ina Morin - 12/21/2021 4:35 PM CST Called to reschedule pt CT SCAN. Patient decided that she is not coming [facility] She will be following up with treatment from another facility. Referring doctor has been alerted. Salima Emerson PAC spoke with Zeenat. K AND TRANSFER BEADER * Telephone Encounter - Ina Morin - 12/21/2021 4:33 PM CST Called to reschedule pt CT SCAN. Patient decided that she is not coming back to [facility]. She will be following up with treatment from another facility. Referring doctor has been alerted. Salima Emerson PAC spoke with Zeenat. K AND TRANSFER BEADER documented in this encounter Plan of Treatment Not on file documented as of this encounter Visit Diagnoses Not on filedocumented in this encounter Additional Health Concerns Assessment Noted Time PHQ-9 Depression Total Score: 13 022 10:40 AM CHECK AND TRANSFER BEADER documented as of this encounter Care Teams Speed Runner Relationship Specialty Start Date End Date Salima Emerson PAC [address] [place] [address] PCP - General Physician Bomb Squad Commander 11/22/21 Mookie Foster MD [address] [place] [address] Consulting Physician Oncology 11/22/21 documented as of this encounter
--- OUTSIDE RECORDS SUMMARY | 2025-07-02 19:44 | XMS_ITS | Patient Health Record ---
Author Organization [facility] Address [address] [place] [address] Care Team Providers Care Fire Control Assistant Name Role Phone Salima Emerson PA-C Primary Care Provider Mayur Johnson Unavailable [phone] Allergies Allergen (clinical drug ingredient) Drug/Non Drug Allergy documented on EMR Reaction Allergy Type Onset Date Status ciprofloxacin Cipro Unknown Drug Allergy 02/27/2024 Ac tive Reason For Referral No Information Medications Medication SIG (Take, Route, Frequency, Duration) Notes Start Date End Date Status Omeprazole 20 MG Oral 03/26/2024 Ac tive traZODone HCl 100 MG 2 tablet at bedtime Oral Once a day; Duration: 90 days Active OLANZapine 20 MG 1 tablet Oral Once a day; Duration: 90 days Active traZODone HCl 100 MG 2 tablet at bedtime Oral Once a day; Duration: 30 days appointment needed for additional refills Active Pregabalin 75 MG Oral; Duration: 30 Days Active Rosuvastatin Calcium 5 MG Oral 03/26/2024 Active Ventolin HFA 108 (90 Base) MCG/ACT Inhalation 03/26/2024 Active Divalproex Sodium 250 MG 1 tablet Orally daily; Duration: 7 days Active Divalproex Sodium 250 MG TAKE 1 TABLET B Y MOUTH TWICE DAILY; Duration: 30 Active Immunizations Vaccine Route Administration Date Status Comme nts Hep A-Hep B Unknown 08/24/2009 Administered Hep A-Hep B Unknown 10/09/2009 Administered Hep A-Hep B Unknown 03/12/2010 Administered Influenza virus vaccine, quadrivalent (IIV4), split virus, 0.25 mL dosage Unknown 10/13/2015 Administered Influenza virus vaccine, quadrivalent (IIV4), split virus, 0.25 mL dosage Unknown 08/21/2016 Administered Influenza virus vaccine, quadrivalent (IIV4), split virus, 0.25 mL dosage Unknown 07/09/2019 Administered Influenza, seasonal, injecta ble, preservative free, 3 yrs and above Unknown 07/29/2013 Administered Influenza, seasonal, injecta ble, preservative free, 3 yrs and above Unknown 09/04/2014 Administered Infuenza, trivalent, recombi nant, preservative free Unknown 07/31/2017 Administered Moderna Covid-19 Vaccine 1st dose Unknown 04/22/2021 Ad ministered Moderna Covid-19 Vaccine 1st dose Unknown 05/18/2021 Ad ministered Novel [id number], preservative free Unknown 09/10/2018 Administered Novel [id number], preservative free Unknown 08/25/2020 Administered Pneumococcal polysaccharide PPV23 Unknown 09/02/2008 Ad ministered Pneumococcal polysaccharide PPV23 Unknown 05/02/2017 Ad ministered Td (adult) Unknown 05/28/2015 Administered Zoster Unknown 08/27/2019 Administered Zoster Unknown 11/08/2019 Administered Social History Tobacco Use: Social History Observation Description Date Details (start date - stop date) Current Smoker NA - NA Sex Assigned At : Social History Observation Description Sex Assigned At Female Tobacco Control (Standard) Question Answer Notes Tobacco use: Current smoker Problems Problem Type SNOMED Code ICD Code Onset Dates Problem Status W/U Status Risk Notes Problem Generalized anxiety disorder (14953910) Generalized anxiety disorder (F41.1) Active confirmed Problem Insomnia (872779041) Other insomnia (G47.09) Active confirmed Problem Polyneuropathy (29856526) Polyneuropathy, unspecified (G62.9) Active confirmed Problem Mixed bipolar I disorder (93168476) Bipolar disorder, mixed (F31.60) Active confirmed Vital Signs Heart Rate 118 /min 04/08/2025 Height-cm 167.64 cm 04/08/2025 Blood pressure diastolic 77 mm Hg 04/08/2025 Weight-kg 68.04 kg 04/08/2025 Height 66.00 in 04/08/2025 Blood pressure systolic 123 mm Hg 04/08/2025 Weight 150 lbs 04/08/2025 BMI 24.21 kg/m2 04/08/2025 Encounters Encounter Location Date Provider Diagnosis [facility] [employer] [facility] [address] [facility] [address] [address] 09/24/2024 Mayurmorenita Reneea Generalized anxiety disorder F41.1 ; Polyneuropathy, unspecified G62.9 ; Drug induced subacute dyskinesia G24.01 ; Other insomnia G47.09 and Bipolar disorder, mixed F31.60 [facility] [employer] [place] [address] [address] 12/24/2024 Mayur Estebanoza Generalized anxiety disorder F41.1 ; Polyneuropathy, unspecified G62.9 ; Drug induced subacute dyskinesia G24.01 ; Other insomnia G47.09 and Bipolar disorder, mixed F31.60 [facility] [employer] [place] [address] [address] 03/11/2025 Mayur Zaragoza Encounter for screen ing for depression Z13.31 ; Nicotine use Z72.0 ; Generalized anxiety disorder F41.1 ; Polyneuropathy, unspecified G62.9 ; Drug induced subacute dyskinesia G24.01 ; Other insomnia G47.09 and Bipolar disorder, mixed F31.60 [facility] [employer] [place] [address] [address] 04/08/2025 Mayur Zaragoza Encounter for screen ing for cardiovascular disorders Z13.6 ; Nicotine use Z72.0 ; Encounter for screening for depression Z13.31 ; Generalized anxiety disorder F41.1 ; Polyneuropathy, unspecified G62.9 ; Drug induced subacute dyskinesia G24.01 ; Other insomnia G47.09 and Bipolar disorder, mixed F31.60 Assessments Encounter Date Diagnosis (ICD Code) Assessment Notes Treatment Notes Treatment Clinical Notes Section Notes 09/24/2024 Generalized anxiety disorder (ICD-10 - F41.1) stable will not use benzodiazepines r/t hx of misuse 1. Peripheral neuropathy: - Patient reports worsening tingling in feet and is currently on pregabalin for neuropathy management. Plan: - Continue pregabalin as prescribed - Encourage patient to discuss neuropathy management with primary care physician or consider referral to pain medicine physician 2. Insomnia: - Patient reports difficulty sleeping for the past few weeks, despite taking trazodone 150 mg and olanzapine at bedtime. Plan: - Increase trazodone to 200 mg (two 100 mg tablets) at bedtime - Monitor sleep quality and adjust medication as needed during follow-up visits 3. Tardive dyskinesia: - Patient has a history of tardive dyskinesia with persistent feet twitching, but no facial or mouth movements. Previous trials of ingrezza and austedo were not tolerated due to side effects. Plan: - Continue monitoring tardive dyskinesia symptoms during follow-up visits - Reevaluate the need for medication trials if symptoms worsen or new symptoms develop 4. Cataract surgery: - Patient has upcoming cataract surgery and bone density test. Plan: - Encourage patient to follow through with scheduled appointments and procedures - Monitor patient's progress and recovery during follow-up visits 5. Social support and activities: - Patient reports going out with delivery aide three days a week and participating in activities such as bingo. Plan: - Encourage patient to continue engaging in social activities and utilizing delivery aide support for improved mental health 6. Follow-up: - Schedule a follow-up appointment in 3 months to monitor patient's progress and medication management. 12/24/2024 Generalized anxiety disorder (ICD-10 - F41.1) stable will not use benzodiazepines r/t hx of misuse 03/11/2025 Encounter for screening for depression (ICD-10 - Z13.31) will not use benzodiazepines r/t hx of misuse 04/08/2025 Encounter for screening for cardiovascular disorders (ICD-10 - Z13.6) will not use benzodiazepines r/t hx of misuse 04/08/2025 Nicotine use (ICD-10 - Z72.0) will not use benzodiazepines r/t hx of misuse 09/24/2024 Polyneuropathy, unspecified (ICD-10 - G62.9) managed by pcp will not use benzodiazepines r/t hx of misuse 1. Peripheral neuropathy: - Patient reports worsening tingling in feet and is currently on pregabalin for neuropathy management. Plan: - Continue pregabalin as prescribed - Encourage patient to discuss neuropathy management with primary care physician or consider referral to pain medicine physician 2. Insomnia: - Patient reports difficulty sleeping for the past few weeks, despite taking trazodone 150 mg and olanzapine at bedtime. Plan: - Increase trazodone to 200 mg (two 100 mg tablets) at bedtime - Monitor sleep quality and adjust medication as needed during follow-up visits 3. Tardive dyskinesia: - Patient has a history of tardive dyskinesia with persistent feet twitching, but no facial or mouth movements. Previous trials of ingrezza and austedo were not tolerated due to side effects. Plan: - Continue monitoring tardive dyskinesia symptoms during follow-up visits - Reevaluate the need for medication trials if symptoms worsen or new symptoms develop 4. Cataract surgery: - Patient has upcoming cataract surgery and bone density test. Plan: - Encourage patient to follow through with scheduled appointments and procedures - Monitor patient's progress and recovery during follow-up visits 5. Social support and activities: - Patient reports going out with delivery aide three days a week and participating in activities such as bingo. Plan: - Encourage patient to continue engaging in social activities and utilizing delivery aide support for improved mental health 6. Follow-up: - Schedule a follow-up appointment in 3 months to monitor patient's progress and medication management. 12/24/2024 Polyneuropathy, unspecified (ICD-10 - G62.9) managed by pcp will not use benzodiazepines r/t hx of misuse 03/11/2025 Nicotine use (ICD-10 - Z72.0) will not use benzodiazepines r/t hx of misuse 03/11/2025 Generalized anxiety disorder (ICD-10 - F41.1) stable will not use benzodiazepines r/t hx of misuse 12/24/2024 Drug induced subacute dyskinesia (ICD-10 - G24.01) side effects with Austedo and Ingrezza will not use benzodiazepines r/t hx of misuse 09/24/2024 Drug induced subacute dyskinesia (ICD-10 - G24.01) side effects with Austedo and Ingrezza will not use benzodiazepines r/t hx of misuse 1. Peripheral neuropathy: - Patient reports worsening tingling in feet and is currently on pregabalin for neuropathy management. Plan: - Continue pregabalin as prescribed - Encourage patient to discuss neuropathy management with primary care physician or consider referral to pain medicine physician 2. Insomnia: - Patient reports difficulty sleeping for the past few weeks, despite taking trazodone 150 mg and olanzapine at bedtime. Plan: - Increase trazodone to 200 mg (two 100 mg tablets) at bedtime - Monitor sleep quality and adjust medication as needed during follow-up visits 3. Tardive dyskinesia: - Patient has a history of tardive dyskinesia with persistent feet twitching, but no facial or mouth movements. Previous trials of ingrezza and austedo were not tolerated due to side effects. Plan: - Continue monitoring tardive dyskinesia symptoms during follow-up visits - Reevaluate the need for medication trials if symptoms worsen or new symptoms develop 4. Cataract surgery: - Patient has upcoming cataract surgery and bone density test. Plan: - Encourage patient to follow through with scheduled appointments and procedures - Monitor patient's progress and recovery during follow-up visits 5. Social support and activities: - Patient reports going out with delivery aide three days a week and participating in activities such as bingo. Plan: - Encourage patient to continue engaging in social activities and utilizing delivery aide support for improved mental health 6. Follow-up: - Schedule a follow-up appointment in 3 months to monitor patient's progress and medication management. 04/08/2025 Encounter for screening for depression (ICD-10 - Z13.31) will not use benzodiazepines r/t hx of misuse 03/11/2025 Polyneuropathy, unspecified (ICD-10 - G62.9) managed by pcp will not use benzodiazepines r/t hx of misuse 09/24/2024 Other insomnia (ICD-10 - G47.09) trazodone 200mg hs prn will not use benzodiazepines r/t hx of misuse 1. Peripheral neuropathy: - Patient reports worsening tingling in feet and is currently on pregabalin for neuropathy management. Plan: - Continue pregabalin as prescribed - Encourage patient to discuss neuropathy management with primary care physician or consider referral to pain medicine physician 2. Insomnia: - Patient reports difficulty sleeping for the past few weeks, despite taking trazodone 150 mg and olanzapine at bedtime. Plan: - Increase trazodone to 200 mg (two 100 mg tablets) at bedtime - Monitor sleep quality and adjust medication as needed during follow-up visits 3. Tardive dyskinesia: - Patient has a history of tardive dyskinesia with persistent feet twitching, but no facial or mouth movements. Previous trials of ingrezza and austedo were not tolerated due to side effects. Plan: - Continue monitoring tardive dyskinesia symptoms during follow-up visits - Reevaluate the need for medication trials if symptoms worsen or new symptoms develop 4. Cataract surgery: - Patient has upcoming cataract surgery and bone density test. Plan: - Encourage patient to follow through with scheduled appointments and procedures - Monitor patient's progress and recovery during follow-up visits 5. Social support and activities: - Patient reports going out with delivery aide three days a week and participating in activities such as bingo. Plan: - Encourage patient to continue engaging in social activities and utilizing delivery aide support for improved mental health 6. Follow-up: - Schedule a follow-up appointment in 3 months to monitor patient's progress and medication management. 12/24/2024 Other insomnia (ICD-10 - G47.09) trazodone 200mg hs prn will not use benzodiazepines r/t hx of misuse 04/08/2025 Generalized anxiety disorder (ICD-10 - F41.1) stable will not use benzodiazepines r/t hx of misuse 03/11/2025 Drug induced subacute dyskinesia (ICD-10 - G24.01) side effects with Austedo and Ingrezza will not use benzodiazepines r/t hx of misuse 12/24/2024 Bipolar disorder, mixed (ICD-10 - F31.60) olanzapine 20mg hs Plasma concentrations of OLANZapine Oral Tablet 20 MG may be decreased by Divalproex Sodium Oral Tablet Delayed Release 250 MG. will not use benzodiazepines r/t hx of misuse 09/24/2024 Bipolar disorder, mixed (ICD-10 - F31.60) olanzapine 20mg hs will not use benzodiazepines r/t hx of misuse 1. Peripheral neuropathy: - Patient reports worsening tingling in feet and is currently on pregabalin for neuropathy management. Plan: - Continue pregabalin as prescribed - Encourage patient to discuss neuropathy management with primary care physician or consider referral to pain medicine physician 2. Insomnia: - Patient reports difficulty sleeping for the past few weeks, despite taking trazodone 150 mg and olanzapine at bedtime. Plan: - Increase trazodone to 200 mg (two 100 mg tablets) at bedtime - Monitor sleep quality and adjust medication as needed during follow-up visits 3. Tardive dyskinesia: - Patient has a history of tardive dyskinesia with persistent feet twitching, but no facial or mouth movements. Previous trials of ingrezza and austedo were not tolerated due to side effects. Plan: - Continue monitoring tardive dyskinesia symptoms during follow-up visits - Reevaluate the need for medication trials if symptoms worsen or new symptoms develop 4. Cataract surgery: - Patient has upcoming cataract surgery and bone density test. Plan: - Encourage patient to follow through with scheduled appointments and procedures - Monitor patient's progress and recovery during follow-up visits 5. Social support and activities: - Patient reports going out with delivery aide three days a week and participating in activities such as bingo. Plan: - Encourage patient to continue engaging in social activities and utilizing delivery aide support for improved mental health 6. Follow-up: - Schedule a follow-up appointment in 3 months to monitor patient's progress and medication management. 04/08/2025 Polyneuropathy, unspecified (ICD-10 - G62.9) managed by pcp will not use benzodiazepines r/t hx of misuse 03/11/2025 Other insomnia (ICD-10 - G47.09) trazodone 200mg hs prn will not use benzodiazepines r/t hx of misuse 04/08/2025 Drug induced subacute dyskinesia (ICD-10 - G24.01) side effects with Austedo and Ingrezza will not use benzodiazepines r/t hx of misuse 04/08/2025 Other insomnia (ICD-10 - G47.09) trazodone 200mg hs prn will not use benzodiazepines r/t hx of misuse 03/11/2025 Bipolar disorder, mixed (ICD-10 - F31.60) olanzapine 20mg hs Plasma concentrations of OLANZapine Oral Tablet 20 MG may be decreased by Divalproex Sodium Oral Tablet Delayed Release 250 MG. will not use benzodiazepines r/t hx of misuse 04/08/2025 Bipolar disorder, mixed (ICD-10 - F31.60) olanzapine 20mg hs Plasma concentrations of OLANZapine Oral Tablet 20 MG may be decreased by Divalproex Sodium Oral Tablet Delayed Release 250 MG. 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 Peripheral neuropathy: - Patient reports worsening tingling in feet and is currently on pregabalin for neuropathy management. Plan: - Continue pregabalin as prescribed - Encourage patient to discuss neuropathy management with primary care physician or consider referral to pain medicine physician 2. Insomnia: - Patient reports difficulty sleeping for the past few weeks, despite taking trazodone 150 mg and olanzapine at bedtime. Plan: - Increase trazodone to 200 mg (two 100 mg tablets) at bedtime - Monitor sleep quality and adjust medication as needed during follow-up visits 3. Tardive dyskinesia: - Patient has a history of tardive dyskinesia with persistent feet twitching, but no facial or mouth movements. Previous trials of ingrezza and austedo were not tolerated due to side effects. Plan: - Continue monitoring tardive dyskinesia symptoms during follow-up visits - Reevaluate the need for medication trials if symptoms worsen or new symptoms develop 4. Cataract surgery: - Patient has upcoming cataract surgery and bone density test. Plan: - Encourage patient to follow through with scheduled appointments and procedures - Monitor patient's progress and recovery during follow-up visits 5. Social support and activities: - Patient reports going out with delivery aide three days a week and participating in activities such as bingo. Plan: - Encourage patient to continue engaging in social activities and utilizing delivery aide support for improved mental health 6. Follow-up: - Schedule a follow-up appointment in 3 months to monitor patient's progress and medication management. 12/24/2024 Other 1. Anxiety: - Patient reports constant anxiety and racing thoughts. Plan: - Start Depakote 250 mg twice a day to help with racing thoughts and anxiety. - Encourage the patient to consider counseling for anxiety management. 2. Neuropathy: - Patient complains of constant pain and tingling in feet due to neuropathy. - Currently on Lyrica for neuropathy. Plan: - Continue Lyrica as prescribed. - Monitor patient's response to the medication and consider adjustments if necessary. 3. Depression: - Patient reports feeling depressed and bored. Plan: - Monitor patient's mood and response to the addition of Depakote. - Encourage the patient to consider counseling for depression management. 4. Insomnia: - Patient reports difficulty sleeping and racing thoughts at night. - Currently on olanzapine 20 mg at bedtime and trazodone 200 mg at bedtime. Plan: - Continue olanzapine and trazodone as prescribed. - Monitor patient's response to the addition of Depakote, which may help with sleep. 5. Smoking cessation: - Patient reports smoking one cigarette a day and needs to quit smoking for back surgery. Plan: - Encourage the patient to continue working on quitting smoking. - Provide resources and support for smoking cessation. 6. Medication management: - Current medications: Olanzapine 20 mg at bedtime, trazodone 200 mg at bedtime, Lyrica, and 3 vitamins. Plan: - Add Depakote 250 mg twice a day. - Monitor patient's response to the new medication and adjust as needed. Follow-up: - Schedule a follow-up appointment in one month to assess the patient's response to Depakote and overall mental health status. will not use benzodiazepines r/t hx of misuse 03/11/2025 Tyrel Martinez, a female patient with a history of depression, presents with ongoing depressive symptoms, balance issues, and recent falls. Depression Assessment: Patient reports no noticeable improvement in depressive symptoms with current medication regimen. The lack of response to treatment suggests the need for medication adjustment or alternative therapeutic approaches. Plan: - Continue olanzapine - Continue trazodone 200 mg PO at bedtime - Follow up in 1 month to reassess depressive symptoms and medication efficacy Balance issues and falls Assessment: Patient reports difficulty walking, falling into chairs, and a recent fall in the bathtub. These balance issues may be a side effect of Depakote, which was initially prescribed for racing thoughts and anxiety. The temporal relationship between starting Depakote and the onset of balance problems suggests a possible causal link. Plan: - Taper Depakote: - Reduce to one tablet once daily for 1 week - Discontinue after 1 week - Monitor for improvement in balance after Depakote discontinuatio n - Follow up in 1 month to reassess balance issues Kidney mass Assessment: Patient mentions a mass on her kidney, but no further details or treatment plans are currently known. Plan: - Await further information on kidney mass management - Follow up on kidney mass status at next visit the note is transcribed using speech recognition software. It is a reflection of a visit with the patient. It might have some inaccuracy, including medication names and transcribing errors, though efforts have been made to correct them. will not use benzodiazepines r/t hx of misuse 04/08/2025 Tyrel Martinez, a 65-year-old female patient with a history of neuropathy, presents with ongoing nerve pain, numbness, tingling, and balance issues. Neuropathy Assessment: Patient reports severe neuropathic symptoms including numbness, tingling, shooting pains up the legs and down the fingers, as well as twitching and jerking. These symptoms appear to be chronic and significantly impacting the patient's quality of life. Previous treatments, including Cymbalta and amitriptyline, were ineffective for leg pain. The patient had been on Lyrica (pregabalin) prescribed by a back surgeon, last filled in December, but is unsure of its effectiveness. Gabapentin was tried in the past but patient reported inability to tolerate it. Plan: - Refer to primary care or pain management for further evaluation and management of neuropathic pain. the note is transcribed using speech recognition software. It is a reflection of a visit with the patient. It might have some inaccuracy, including medication names and transcribing errors, though efforts have been made to correct them. will not use benzodiazepines r/t hx of misuse Plan Of Treatment Next Appt Details Provider Name:Mayur avila, 07/08/2025 10:15:00 AM, [address], [facility] [address], [place], [address], Insurance Providers Payer Name Payer Address Payer Phone Subscriber Number Group Number Insured Name Patient Relationship to Insured Coverage Start Date Coverage End Date [place] [address] [place] [address] [id number] NORMA MARTINEZ Self - patient is the insured [employer] Medicare Replacement /Advantag [address] [address] [place] [address] [id number] COS NORMA MARTINEZ Self - patient is the insured Medical (General) History Medical History History ICD Code Problems: Bipolar disorder Generalized anxiety disorder Long-term current use of drug therapy Malignant tumor of ovary Mild recurrent major depression Neuroleptic-induced tardive dyskinesia Neuropathy Nicotine dependence Nondependent cocaine abuse in remission Parent/child conflict Persistent insomnia Recurrent major depression Tremor , Surgical History Surgery Date(Month/Year) Other Neurosurgery 04/01/2022
--- OUTSIDE RECORDS SUMMARY | 2025-07-02 19:44 | XMS_ITS | Encounter Summary ---
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 No / Unsure 11/25/2021 10:02 AM FRUIT PITTER documented as of this encounter Miscellaneous Notes * Telephone Encounter - Huber Doe DO - 12/21/2021 4:02 PM CST Noted, included dr foster T PITTER * Telephone Encounter - Ina Morin - 12/21/2021 2:57 PM CST Called to reschedule pt CT SCAN. Patient decided that she is not coming [facility] She will be following up with treatment from another facility. Referring doctor has been alerted. Salima Emerson PAC spoke with Zeenat. T PITTER documented in this encounter Plan of Treatment Not on file documented as of this encounter Visit Diagnoses Not on filedocumented in this encounter Additional Health Concerns Assessment Noted Time PHQ-9 Depression Total Score: 13 022 10:40 AM FRUIT PITTER documented as of this encounter Care Teams Lozenge Dough Mixer Relationship Specialty Start Date End Date Salima Emerson PAC [address] [place] [id number] PCP - General Physician Pinked Edge Sewing Machine Operator 11/22/21 Mookie Foster MD [address] [place] [address] Consulting Physician Oncology 11/22/21 documented as of this encounter
--- OUTSIDE RECORDS SUMMARY | 2025-07-02 19:44 | XMS_ITS | Encounter Summary ---
Author Organization [facility] Address [address] [place] [address] Care Team Providers Care Pharmacy Stock Clerk Name Role Phone Salima Emerson PA-C Primary Care Provider [phone] Mookie Foster MD Unavailable [phone] Encounter Details Date Type Department Care Team (Late st Contact Info) Description 05/05/2020 Hospital Follow-up Call [facility] Telemetry Unit A [address] [place] [address] Rosemarie Mata RN Social History Tobacco Use [...] on filedocumented in this encounter Care Teams Pharmacy Stock Clerk Relationship Specialty Start Date End Date Salima Emerson PA-C [address] [place] [id number] PCP - General NURSE PRACTITIONER 05/03/20 Mookie Foster MD [address] [place] [address] Consulting Physician HEMATOLOGY/ONCOLOGY 11/22/21 documented as of this encounter
--- OUTSIDE RECORDS SUMMARY | 2025-07-02 19:44 | XMS_ITS ---
Author Organization [facility] Address [facility] [facility] [address] [facility] [address] [place] [address] Care Team Providers Care Glove Cleaner Name Role Phone Salima Emerson PA-C Primary Care Provider Mayur Johnson Unavailable [phone] REASON FOR VISIT 1 month f/u Social History Sex Assigned At : Social History Observation Description Sex Assigned At Female Encounters Encounter Location Date Provider Diagnosis [facility] [employer] [place] [id number] [facility] [address] [place] [address] 02/07/2025 Mayur Zaragoza Plan Of Treatment Next Appt Details Provider Name:Mayur avila, 07/08/2025 10:15:00 AM, [address], [facility] [address], [place], [address], Progress Notes * NORMA YOUNGBLOODDOB: [birth year] (70 yo F)Acc No.[id number]:02/07/2025 Patient: Gregorio NORMA INFANTE Provider: ROSA STAUFFER :1955 A ge:69 Y S ex:Female Date:02/07/2025 Address:[address] [place] [address], [address], [place], [place] Pcp:Salima Emerson PA-C Subjective: * Chief Complaints: * 1 . 1 month f/u. * Medical History: Objective: * Vitals: Assessment: Plan: * Treatment: * Billing Information: * Visit Code: * Procedure Codes: * Electronic signature of ROSA Malcolm on 07/02/2025 at 07:43 PM CDT Sign off status: Pending * Provider: ROSA STAUFFER Date: 0 02/07/2025 Generated for Anand hay/Familia/Leny on: 0 07/02/2025 07:43 PM CDT
--- OUTSIDE RECORDS SUMMARY | 2025-07-02 19:44 | XMS_ITS | Encounter Summary ---
Author Organization [facility] Address [address] [place] [address] Phone Care Team Providers Care Financial Accountant Name Role Phone Salima Emerson PAC Primary Care Provider [phone] Mookie Foster MD Unavailable [phone] Encounter Details Date Type Department Care Team (Late st Contact Info) Description 12/21/2021 Telephone [facility] [address] [facility] [address] [place] [address] Mookie Foster MD [address] [facility] [address] [place] [address] Social History Tobacco Use Types [...] on file Legal Sex Female 3:47 PM SEXUAL ASSAULT RESPONSE COORDINATOR Gender Identity Not on file Sexual Orientation Not on file COVID-19 Exposure Response Date Recorded In the last month, have you been in contact with someone who was confirmed or suspected to have Coronavirus / COVID-19? No / Unsure 11/25/2021 10:02 AM SEXUAL ASSAULT RESPONSE COORDINATOR documented as of this encounter Plan of Treatment Not on file documented as of this encounter Visit Diagnoses Not on filedocumented in this encounter Additional Health Concerns Assessment Noted Time PHQ-9 Depression Total Score: 13 022 10:40 AM SEXUAL ASSAULT RESPONSE COORDINATOR documented as of this encounter Care Teams Financial Accountant Relationship Specialty Start Date End Date Salima Emerson PAC [address] [place] [address] PCP - General Physician Solar System Installer 11/22/21 Mookie Foster MD [address] [place] [phone] Consulting Physician Oncology 11/22/21 documented as of this encounter
--- OUTSIDE RECORDS SUMMARY | 2025-07-02 19:44 | XMS_ITS | Encounter Summary ---
Author Organization [facility] Address [address] [place] [address] Care Team Providers Care Soil Engineer Name Role Phone Karthik Triplett MD Primary Care Provider [phone] Salima Emerson PA-C Primary Care Provider [phone] Mookie Foster MD Unavailable [phone] Encounter Details Date Type Department Care Team (Latest Contact Info) Description 09/25/2018 Abstract [facility] , Thu Modi MD [...] on filedocumented in this encounter Care Teams Soil Engineer Relationship Specialty Start Date End Date Karthik Triplett MD [address] [place] [address] [address] [place] [address] PCP - General FAMILY PRACTICE 11/30/17 05/02/20 Salima Emerson PA-C [address] [place] [address] PCP - General NURSE PRACTITIONER 05/03/20 Mookie Foster MD [address] [place] [address] Consulting Physician HEMATOLOGY/ONCOLOGY 11/22/21 documented as of this encounter
--- OUTSIDE RECORDS SUMMARY | 2025-07-02 19:44 | XMS_ITS | Clinical Summary ---
Author Organization [facility] Address [address], [facility] [address] [place] [address] Phone Care Team Providers Care Floor Worker Transfer [place] Name Role Phone Salima Emerson PAC Primary Care Provider [phone] Mookie Foster MD Unavailable Allergies Active Allergy [...] on file Legal Sex Female 3:47 PM PATENT CLERK Gender Identity Not on file Sexual Orientation Not on file Last Filed Vital Signs Vital Sign Reading Time Taken Comments Blood Pressure 118/78 11/25/2021 10:31 AM PATENT CLERK Pulse 82 11/25/2021 10:31 AM PATENT CLERK Temperature 36.1 C (96.9 F) 11/25/2021 10:31 AM PATENT CLERK Respiratory Rate 18 11/25/2021 10:31 AM PATENT CLERK Oxygen Saturation 98% 11/25/2021 10:31 AM PATENT CLERK Inhaled Oxygen Concentration - - Weight 58.6 kg (129 lb 1.6 oz) 11/25/2021 10:31 AM PATENT CLERK Height 165.1 cm (5' 5) 11/25/2021 10:31 AM PATENT CLERK Body Mass Index 21.48 11/25/2021 10:31 AM PATENT CLERK Plan of Treatment Health Maintenance Due Date Last Done Comments TdaP Immunization 1955 Cologuard 2001 Colonoscopy 2001 Colorectal Cancer Screening 2001 Immunochemical Fecal Occult Blood 2001 Pneumococcal Immunization (50+ years) (3 of 3 - PCV) 05/02/2018 05/02/2017, 09/02/2008 SARS-COV-2 Immunization (3 - Moderna risk series) 06/15/2021 05/18/2021, 04/22/2021 Influenza Immunization (#1) 07/21/202508/21, 08/25/2020, 07/09/2019, Additional history exists Respiratory Syncytial Virus (RSV) Immunization (Adult) (1 - 1-dose 75+ series) 2031 Hepatitis B Immunization Completed 010, 10/09/2009, 08/24/2009 DTaP/Tdap/Td Immunization Discontinued 05/28/2015 Zoster Immunization Completed 11/08/2019, 9 Human Papillomavirus (HPV) Immunization Aged Out No longer eligible based on patient's age to complete this topic Meningococcal Immunization (ACWY) Aged Out No longer eligible based on patient's age to complete this topic Rotavirus Immunization Aged Out No lo nger eligible based on patient's age to complete this topic Insurance MEDICARE MEDICAID [place] Care Teams Floor Worker [place] Relationship Specialty Start Date End Date Salima Emerson PAC [address] [place] [address] PCP - General Physician Engine Boss 11/22/21 Mookie Foster MD [address] [place] [phone] Consulting Physician Oncology 11/22/21
--- OUTSIDE RECORDS SUMMARY | 2025-07-02 19:44 | XMS_ITS | Encounter Summary ---
Author Organization [facility] Address [address] [place] [address] Phone Care Team Providers Care Farm Agent Name Role Phone Salima Emerson PAC Primary Care Provider [phone] Mookie Foster MD Unavailable [phone] Encounter Details Date Type Department Care Team (Late st Contact Info) Description 11/29/2021 Telephone [facility] [address] [place] [address] Mookie Foster MD [address] [facility] [place] [address] [address] Social History Tobacco Use Types [...] on file Legal Sex Female 3:47 PM BROKER ASSOCIATE Gender Identity Not on file Sexual Orientation Not on file COVID-19 Exposure Response Date Recorded In the last month, have you been in contact with someone who was confirmed or suspected to have Coronavirus / COVID-19? No / Unsure 11/25/2021 10:02 AM BROKER ASSOCIATE documented as of this encounter Miscellaneous Notes * Telephone Encounter - Lesa Mora - 11/29/2021 11:16 AM CST Patient called to cancel her CT On 12/03 and office visit on 12/09 because she says she doesn't feel good. She will rescheduled once she feels better. ER ASSOCIATE documented in this encounter Plan of Treatment Not on file documented as of this encounter Visit Diagnoses Not on filedocumented in this encounter Additional Health Concerns Assessment Noted Time PHQ-9 Depression Total Score: 13 022 10:40 AM BROKER ASSOCIATE documented as of this encounter Care Teams Farm Agent Relationship Specialty Start Date End Date Salima Emerson PAC [address] [place] [address] PCP - General Physician Desk Director 11/22/21 Mookie Foster MD [address] [place] [phone] Consulting Physician Oncology 11/22/21 documented as of this encounter
--- OUTSIDE RECORDS SUMMARY | 2025-07-02 19:44 | XMS_ITS ---
Author Organization [facility] Address [address], [facility] [address] [place] [address] Phone Care Team Providers Care Court Interpreter Name Role Phone Salima Emerson PAC Primary Care Provider [phone] Mookie Foster MD Unavailable [phone] Active Problems Problem Noted Date Diagnosed Date Ovarian cancer Current Treatment and Therapy Plans SUPPORT - HYDRATION WITH ADDITIVES + ANTIEMETICS - CCSCI* Plan Start Date: 11/25/2021 Plan Provider:Mookie Foster MD Linked Problems Malignant neoplasm of ovary, unspecified laterality (HCC) Treatment Medications No medications scheduled. Past Treatment and Therapy Plans No past plan information found.
[2025-07-02 19:48] VITALS: BP 104/67; PULSE 108; RESP 19; TEMP 36.1; O2SAT 95
[2025-07-02 21:53] LABS: Hematocrit 39.8 % (37.0-47.0); Hemoglobin 13.1 g/dL (12.0-15.0); Immature Granulocyte Percent A 1.7 % (0-0.5); Lymphocytes Absolute Auto 2.17 K/mm3 (0.9-3.2); Mean Corpuscular HGB Conc 32.9 g/dl (32-36); Mean Corpuscular Hemoglobin 30.3 pg (26-34); Mean Corpuscular Volume 92.1 fl (80-100); Nucleated Red Blood Cells Absolute Auto 0.000 K/mm3 (0.0-0.012); Nucleated Red Blood Cells Perc 0.0 % (0.0-0.2); Platelet Count Result 220 k/mm3 (150-375); Red Blood Count 4.32 M/mm3 (4.2-5.4); White Blood Count 15.7 K/mm3 (4.5-10.0)
[2025-07-02 22:03] LABS: Alanine Aminotransferase 33 U/L (6-35); Albumin Level 4.0 g/dL (3.5-5.1); Alkaline Phosphatase 90 U/L (38-126); Anion Gap 10 mmol/L (4-12); Aspartate Amino Transferase 48 U/L (14-36); Bilirubin,Total 0.6 mg/dL (0.2-1.3); Blood Urea Nitrogen 26 mg/dL (7-17); Calcium 10.1 mg/dL (8.4-10.2); Carbon Dioxide 22 mmol/L (22-30); Chloride 107 mmol/L (98-107); Estimated CRCL calculation 47 ml/min; Estimated Glomerular Filt Rate > 60; Glucose 149 mg/dL (65-110); Lipase 11 U/L (23-300); Potassium 3.5 mmol/L (3.4-5.0); Sodium 139 mmol/L (137-145); Total Protein 7.4 g/dL (6.3-8.2)
[2025-07-03] VITALS (30 sets, daily range): BP systolic 92–140; BP diastolic 42–85; PULSE 69–101; RESP 12–23; TEMP 36.1–36.6; O2SAT 82–99; BMI 26.4
--- NOTE | 2025-07-03 | ECHO_ITS ---
Patient Info Name: Myriam Martinez Age: 70 years : 1955 Gender: Female Ht: 60 in Wt: 135 lbs BSA: 1.63 m2 HR: 99 bpm BP: 102 / 67 mmHg Technical Quality: Good Exam Date: 07/03/2025 1:27 PM Patient Status: I Admit Date: 07/03/2025 Exam Type: CA echo doppler color flow Complete two-dimensional, color flow and Doppler transthoracic echocardiogram is performed. Staff Referring Physician: Myriam Myrick Tie Binder: Chanel Dias Attending Provider: Joseph Baker MD Summary 1. Complete two-dimensional, color flow and Doppler transthoracic echocardiogram is performed. 2. Left ventricular chamber dimension is normal. 3. Left ventricular systolic function is normal, estimated at 60-65. 4. The left ventricular diastolic function is grade II diastolic dysfunction. 5. E/e' 10 is mildly elevated. 6. There is trace tricuspid valve regurgitation. 7. No pulmonary hypertension, estimated pulmonary arterial systolic pressure is 34 mmHg. Left Ventricle E/e' 10 is mildly elevated. Left ventricular chamber dimension is normal. Left ventricular systolic function is normal, estimated at 60-65. The left ventricular diastolic function is grade II diastolic dysfunction. Right Ventricle Right ventricular chamber dimension is normal. Right ventricular systolic function is normal. Left Atria Left atrial chamber dimension is normal. Right Atria Right atrial chamber dimension is normal. Aortic Valve The aortic valve is trileaflet. There is no aortic valve stenosis. There is no aortic valve regurgitation. Pulmonic Valve There is no pulmonic regurgitation. Mitral Valve There is no mitral valve stenosis. There is no mitral valve regurgitation. Tricuspid Valve There is trace tricuspid valve regurgitation. No pulmonary hypertension, estimated pulmonary arterial systolic pressure is 34 mmHg. Pericardium/Pleural There is no pericardial effusion. Inferior Vena Cava Normal inferior vena cava with >50% collapse upon inspiration consistent with normal right atrial pressure, 5 mmHg. Aorta The aortic root size at the sinus of Valsalva is normal. Left Ventricular Outflow Tract Name Value Normal LVOT 2D LVOT Diameter 1.8 cm LVOT Doppler LVOT Peak Velocity 120 cm/s LVOT Peak Gradient 6 mmHg LVOT Mean Gradient 3 mmHg LVOT VTI 20 cm LVOT VTI/AV VTI Ratio 0.8 LVOT Stroke Volume 51 ml LVOT CO 13.0 l/min LVOT CI 8.0 l/min/m2 Pulmonic Valve Name Value Normal PV Doppler PV Peak Velocity 93 cm/s PV Peak Gradient 3 mmHg Mitral Valve Name Value Normal MV Diastolic Function MV E Peak Velocity 87 cm/s MV A Peak Velocity 82 cm/s MV E/A 1.1 MV Decel Time (PW) 197 ms MV Annular TDI MV E/e' (Septal) 11.5 MV E/e' (Lateral) 9.8 MV E/e' (Average) 10.6 Tricuspid Valve Name Value Normal TV Regurgitation Doppler TR Peak Velocity 271 cm/s TR Peak Gradient 29 mmHg Estimated PAP/RSVP RA Pressure 5 mmHg <=5 PA Systolic Pressure 34 mmHg <36 RV Systolic Pressure 34 mmHg <36 TV Annular TDI TV Lateral Rupal s' Velocity 13.5 cm/s >=9.5 Aorta Name Value Normal Ascending Aorta Ao Root Diameter (MM) 3.3 cm Ao Root Diam Index (MM) 2.0 cm/m2 Aortic Valve Name Value Normal AV Doppler AV Peak Velocity 149 cm/s AV Peak Gradient 9 mmHg AV Mean Gradient 4 mmHg AV VTI 25 cm AV Area (Cont Eq VTI) 2.1 cm2 >=3.0 AV Area (Cont Eq Jeremie) 2.1 cm2 AV DI (Jeremie) 0.81 AV Regurgitation 2D LVOT Area 2.6 cm2 Ventricles Name Value Normal LV Dimensions 2D/MM IVS Diastolic Thickness (2D) 0.9 cm 0.6-1.0 LVID Diastole (2D) 4.4 cm 3.8-5.2 LVIW Diastolic Thickness (2D) 1.0 cm 0.6-0.9 LVID Systole (2D) 3.0 cm 2.2-3.5 LVOT Diameter 1.8 cm LV Mass (2D Cubed) 136.27 g 67.00-162.00 LV Mass Index (2D Cubed) 84 g/m2 43-95 Relative Wall Thickness (2D) 0.43 <=0.42 LV Fractional Shortening/Ejection Fraction 2D/MM LV Fractional Shortening (2D) 31 % 27-45 LV EF (2D Teichholz) 59 % LV Diastolic Volume (4C MOD) 58 ml LV EF (4C MOD) 66 % LV Diastolic Volume (2C MOD) 54 ml LV EF (2C MOD) 63 % LV Diastolic Volume (BP MOD) 56 ml 46-106 LV Diastolic Volume Index (BP MOD) 34 ml/m2 29-61 LV Systolic Volume (BP MOD) 20 ml 14-42 LV Systolic Volume Index (BP MOD) 12 ml/m2 8-24 LV EF (BP MOD) 64 % 54-74 LV Diastolic Length (4C) 6.8 cm LV Systolic Length (4C) 5.0 cm LV Stroke Volume (4C MOD) 38 ml Atria Name Value Normal LA Dimensions LA Volume (4C A-L) 24 ml LA Volume (BP A-L) 30 ml RA Dimensions RA Systolic Major Holmen Length (4C) 4.4 cm 2.2-2.8 RA Area (4C) 11.5 cm2 <=18.0 Report Signatures
[2025-07-03 02:07] LABS: Add Urine Microscopic? YES; Appearance Urine Cloudy (Clear); Glucose Urine UA Negative (Negative); Leukocyte Esterase Ur 3+ LEU/UL (Negative); Nitrate Urine Negative (Negative); Non Pathogenic Casts 0-2; Specific Grav Ur 1.029 (1.001-1.035)
--- OUTSIDE RECORDS SUMMARY | 2025-07-03 02:12 | XMS_ITS | Encounter Summary ---
Author Organization [facility] Healthcare Address [address] [place] [address] Care Team Providers Care Cafe Aide Name Role Phone LatishaLesa MD PhD Unavailable + Robert Gifford MD Unavailable [phone] Nery Bassett MD Unavailable [phone] Mayur Zaragoza NP Unavailable [phone] Salima Emerson Unavailable [phone] Bharat Corona MD Unavailable [phone] Robert Gifford MD Unavailable Salima Emerson Primary Care Provider + Tamara Dia MD Unavailable Encounter Details Date Type Department Care Team (Late st Contact Info) Description 05/21/2025 Results Follow-Up [facility] at [address] [place] [address] Mikey Sweeney MD [address] [place] [address] MRI Abdomen W WO Contrast Social History Tobacco Use Types Packs/Day Years Used Date Smoking Tobacco: Every Day Cigarettes 0.4 55.6 Started: 1969 Smokeless Tobacco: Never Comments:Patient few months ago cut down to few cigarettes a day. Alcohol Use Standard Drinks/Week Comments No 0 (1 standard drink = 0.6 oz pur e alcohol) denies [facility] Utilities Answer Date Recorded In the past 12 months has th e electric, gas, oil, or water company threatened to shut off services in your home? No 06/11/2024 Social Connection and Isolation Panel Answer Date Recorded In a typical week, how many times do you talk on the phone with family, friends, or neighbors? More than three times a week 06/11/2024 How often do you get togethe r with friends or relatives? Twice a week 06/11/2024 How often do you attend chur ch or pentecostal services? Never 06/11/2024 Do you belong to any clubs o r organizations such as voodoo groups, unions, fraternal or athletic groups, or [...] any time in the past 12 m [facility], were you homeless or living in a correction (including now)? No 06/11/2024 Personal Safety Answer Date Recorded Have you ever been in or are you currently in a harmful physical or emotional relationship or is someone making you feel afraid or unsafe? 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 Author CCM Chronic Pain Care Plan Chronic Care Management No change(09/24 9:56 AM PRODUCT MANAGENT INTERN) No Concepción Canas, RN Note: Problem: Chronic Pain Goals: 1. Minimize further functional decline 2. Maximize quality of life 3. Control pain Strategies: - Activity/exercise program recommendation - Conservative stepwise pain medicine strategy with multi-disciplinary approach - Recommend healthy lifestyle strategies and compensatory methods as needed documented as of this encounter Visit Diagnoses Not on filedocumented in this encounter Care Teams Cafe Aide Relationship Specialty Start Date End Date Salima Emerson PA [address] [place] [address] PCP - General Physician Associate Chief Nurse 12/26/23 Lesa Good MD PhD [address] [place] [address] Radiation Oncologist Radiation Oncology 10/17/18 Robert Gifford MD [address] [place] [address] Referring Physician Auto Service Mechanic 12/21/18 Nery Bassett MD [address] [place] [address] Referring Physician Obstetrics and Gynecology 04/27/17 Mayur Zaragoza, MEDINA [address] [place] [address] Nurse Practitioner 10/24/19 Salima Emerson PA [address] [place] [address] Physician Associate Chief Nurse 10/24/19 Bharat Corona MD [address] [place] [address] Consulting Physician Gynecologic Oncology 07/16/20 Robert Gifford MD [address] [place] [address] Referring Physician Auto Service Mechanic 12/31/20 Tamara Dia MD [address] [place] [address] Consulting Physician Pain Management 01/23/24 documented as of this encounter
--- OUTSIDE RECORDS SUMMARY | 2025-07-03 02:12 | XMS_ITS | Clinical Summary ---
Author Organization [facility] Address [address] [place] [address] Care Team Providers Care Central Supply Supervisor Name Role Phone Salima Emerson PA-C Primary Care Provider [phone] Allergies Active Allergy Reactions Criticality Noted Date [...] Overview (05/03/2020): Possible ovarian cancer, following with [facility] Lumbar canal stenosis 01/01/2014 Lumbar degenerative [...] Comments Blood Pressure 152/90 11/21/2021 9:36 PM UPPER SHAPER Pulse 65 11/22/2021 11:07 AM UPPER SHAPER Temperature 36.6 C (97.9 F) 11/21/2021 2:24 PM UPPER SHAPER Respiratory Rate 18 11/22/2021 11:07 AM UPPER SHAPER Oxygen Saturation 99% 11/22/2021 11:07 AM UPPER SHAPER Inhaled Oxygen Concentration - - Weight 59 kg (130 lb 1.1 oz) 11/21/2021 2:24 PM UPPER SHAPER Height 167.6 cm (5' 6) 11/21/2021 2:24 PM UPPER SHAPER Body Mass Index 20.99 11/21/2021 2:24 PM UPPER SHAPER Plan of Treatment Health Maintenance Due Date [...] Zena Amador, RN Insurance [address] [place] [address] MEDICAID MEDICARE [address] [place] [address] MEDICAID MEDICARE Advance Directives Documents on File Type Date Recorded 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
--- OUTSIDE RECORDS SUMMARY | 2025-07-03 02:12 | XMS_ITS | Encounter Summary ---
Author Organization [facility] Address [address] [place] [address] Care Team Providers Care Roving Carrier Name Role Phone Karthik Triplett MD Primary Care Provide r Geoffrey Forrest MD Unavailable [phone] Bharat Corona MD Unavailable [phone] Lesa Good MD PhD Unavailable + Juanita Lobo Primary Care Provider U Patria Rajan NP Primary Care Provider [phone] Karthik Triplett MD Primary Care Provide r Robert Gifford MD Unavailable + [phone] Juanita Lobo Primary Care Provider U Juanita Kolb Primary Care Provider U Patria Rajan NP Primary Care Provider [phone] Juanita Lobo Primary Care Provider U Nery Salmon MD Unavailable [phone] Mayur Zaragoza INDUSTRIAL DESIGNER Unavailable [phone] Salima Emerson Unavailable [phone] Nahomy Roger MD Primary Care Provider [phone] Bharat Corona MD Unavailable [phone] Unknown, Notinfile Unavailable Unavailable Robert Gifford MD Unavailable + [phone] Salima Emerson Primary Care Provider + Tamara Dia MD Primary Care Provider [phone] KiSalima majano Primary Care Provider + Tamara Dia MD Unavailable Encounter Details Date Type Department Care Team (Late st Contact Info) Description 09/27/2018 Telephone [facility] Advanced Medicine Radiation Oncology [address] [facility] [place] [id number] Tarah Uribe RN Social History Tobacco Use Types Packs/Day Years Used Date Smoking Tobacco: Every Day Smokeless Tobacco: Current Alcohol Use Standard Drinks/Week Comments No 0 (1 standard drink = 0.6 oz pur e alcohol) Comments No Sex and Gender Information Value Date Recorded Sex Assigned at Not on file Legal Sex Female 5:05 AM TIRE DESIGN ENGINEER Gender Identity Not on file Sexual Orientation [...] COVID: Suspected 01/07/2024 01/07/2024 01/07/2024 12:50 PM TIRE DESIGN ENGINEER COVID19 01/07/2024 01/07/2024 01/17/2024 3:05 AM TIRE DESIGN ENGINEER COVID: Recovered Comment:Added based on recent COVID infection. 01/17/2024 01/22/2024 04/16/2024 3:05 AM C DT documented as of this encounter Care Teams Roving Carrier Relationship Specialty Start Date End Date Karthik Triplett MD [address] [facility] [address] [place] [address] PCP - General 05/05/17 11/28/18 Juanita Lobo [address] [facility] [address] [place] [address] PCP - General 11/29/18 11/29/18 Patria Kearney INDUSTRIAL DESIGNER [address] [place] [address] [address] [place] [address] PCP - General Nurse Practitioner 11/30/18 12/09/18 Karthik Triplett MD [address] [facility] [address] [place] [address] PCP - General 12/10/18 01/09/19 Juanita Lobo [address] [place] [address] PCP - General 01/11/19 02/13/19 Juanita Lobo [address] [place] [address] PCP - General 01/10/19 01/10/19 Patria Kearney, INDUSTRIAL DESIGNER [address] [place] [address] PCP - General 02/14/19 02/14/19 Juanita Lobo [address] [place] [address] PCP - General 02/15/19 01/01/20 Nahomy Roger MD [address] [place] [address] PCP - General Family Medicine 01/02/20 05/18/21 Salima Emerson PA [address] [place] [id number] PCP - General Physician Micrographics Services Supervisor 05/19/21 08/21/23 Tamara Dia MD [address] [facility], [address] [address] PCP - General Pain Management 08/22/23 12/25/23 Salima Emerson PA [facility], [address] [address] PCP - General Physician Micrographics Services Supervisor 12/26/23 Geoffrey Forrest MD [address] [facility] [address] [place] [address] Consulting Physician Radiation Oncology 08/07/18 4 Bharat Corona MD [address] [place] [address] Referring Physician Gynecologic Oncology 08/07/1807/10 Lesa Good MD PhD [address] [facility] [address] [place] [address] Radiation Oncologist Radiation Oncology 10/17/18 Robert Gifford MD [address] [place] [address] Referring Physician System Operation Superintendent 12/21/18 Nery Bassett MD [address] [place] [address] Referring Physician Obstetrics and Gynecology 04/27/17 Mayur Zaragoza, INDUSTRIAL DESIGNER [address] [place] [address] Nurse Practitioner 10/24/19 aSlima Emerson PA [address] [place] [address] Physician Micrographics Services Supervisor 10/24/19 Bharat Corona MD [address] [place] [address] Consulting Physician Gynecologic Oncology 07/16/20 Unknown, Notinfile 12/31/20 12/31/20 Robert Gifford MD Referring Physician System Operation Superintendent 12/31/20 Tamara Dia MD [address] [facility], [address] [address] Consulting Physician Pain Management 01/23/24 documented as of this encounter
--- OUTSIDE RECORDS SUMMARY | 2025-07-03 02:13 | XMS_ITS | Clinical Summary ---
Author Organization [facility] Address [address] [place] [address] Care Team Providers Care Engineering Faculty Member Name Role Phone LatishaLesa brian MD PhD Unavailable + Robert Gifford MD Unavailable [phone] Nery Bassett MD Unavailable [phone] Mayur Zaragoza NP Unavailable [phone] Salima Emerson Unavailable [phone] Bharat Corona MD Unavailable [phone] Robert Gifford MD Unavailable + [phone] Salima Emerson Primary Care Provider + Tamara [...] times a day 60 capsule 11 4 Active Additional Information Patient not taking.Reported [...] as needed (constipation) 238 g 4 Active uzbnjzco-hry-pk ondroit-vit D3 750 mg-125 mg -600 mg [...] times a day 60 capsule 5 4 Active traMADoL (ULTRAM) 50 mg tablet Take 1 tablet (50 mg total) by mouth every 6 (six) hours as needed for pain 10 tablet 5 Active methocarbamoL (ROBAXIN) 500 mg tablet Take 1 tablet (500 mg total) by mouth 2 (two) times a day 20 tablet 5 Active Active Problems Problem Noted Date Diagnosed [...] infection) 11/21/2021 Coronary artery disease invo lving [place] coronary artery of [place] heart without angina pectoris 07/29/2021 Chronic low [...] (06/14/2018): Overview: Possible ovarian cancer, following with [facility] Hepatitis C virus 05/01/2017 Elevated tumor markers 05/01/2017 Mild intermittent asthma 04/27/2017 Seasonal allergic rhinitis due to pollen 017 Tobacco abuse 09/20/2016 Lumbar canal stenosis 01/01/2014 Spondylolisthesis of lumbar region 01/01/2014 Degenerative disc disease, lumbar 01/01/2014 Pericardial effusion Degenerative disc disease, thoracic Herniated cervical disc Encounters Date Type Department Care Team Description 05/21/2025 Results Follow-Up [facility] at [address] [place] [id number] Al-Mikey Son MD MRI Abdomen W WO Contrast 05/09/2025 10:16 AM CDT - 05/09/2025 11:59 PM CDT Hospital Encounter [facility] MRI [address] [place] [address] Kidney cysts Discharge Disposition: Discharge to home or self care from Last 3 Months Immunizations Immunization Administration [...] Depression COPD (chronic obstructive pu lmonary disease) Asthma Emphysema lung Arthritis Bipolar disorder Family History Medical History Relation Name Comments [...] 0.4 55.6 Started: 1969 Smokeless Tobacco: Never Tobacco Cessation:Ready to Q uit: Not Asked; Counseling Given: Not Answered Comments:Patient few months ago cut down to few cigarettes a day. Alcohol Use Standard Drinks/Week Comments No 0 (1 standard drink = 0.6 oz pur e alcohol) denies [facility] Utilities Answer Date Recorded In the past 12 months has [employer], gas, oil, or water [employer] threatened to shut off services in your [...] often do you attend chur ch or baptist services? Never 06/11/2024 Do you belong to any clubs o r organizations such as tenriism groups, unions, fraternal or athletic groups, or [...] place to sleep or slept in a halfway (including now)? No 03/31/2022 Housing Stability Vital Sign Answer Jason e Recorded In the last 12 months, was t here a time when you were not able to pay the mortgage or rent on time? No 06/11/2024 In the past 12 months, how m any times have you moved where you were living? 0 06/11/2024 At any time in the past 12 m [facility], were you homeless or living in a halfway (including now)? No 06/11/2024 Personal Safety Answer Date Recorded Have you ever been in or are you currently in a harmful physical or emotional relationship or is someone making you feel afraid or unsafe? Denies 03/20/2025 Comments No Sex and Gender Information Value Date Recorded Sex Assigned at Not on file Legal Sex Female 5:05 AM SET UP MECHANIC STAMPING MACHINES Gender Identity Not on file Sexual Orientation Not on file Occupation Industry Job Start Date Job End Date Disability Not on file Not on file Not on file Obstetrics History Para Term AB IAB SAB Ectopic Multiple Livin g Live Births 1 1 1 1 1 Date Outcome GA Total Labor Labor//3rd Weight Sex Type Anes PTL Teodora A1 A5 Name Clin Term Last Filed Vital Signs Vital Sign Reading Time Taken Comments Blood Pressure 120/81 03/21/2025 12:20 AM CDT Pulse 80 03/21/2025 12:20 AM CDT Temperature 36.9 C (98.5 F) 03/20/2025 10:25 PM CDT Respiratory Rate 20 03/20/2025 10:25 PM CDT Oxygen Saturation 95% 03/21/2025 12:20 AM CDT Inhaled Oxygen Concentration - - Weight 71.7 kg (158 lb) 03/20/2025 10:25 PM CDT Height 167.6 cm (5' 6) 03/17/2025 9:52 AM CDT Body Mass Index 25.5 03/17/2025 9:52 AM CDT Plan of Treatment Health Maintenance Due Date Last Done Comments Colon Cancer Screening-Colonoscopy 1955 Depression Screening 1955 Lung Cancer Screening 2006 DTaP/Tdap/Td Vaccine (1 - Tdap) 05/29/2015 5 Well Visit 65+ 2021 Covid-19 Vaccine (3 - Modern a risk series) 06/15/2021 05/18/2021, 04/22/2021 Breast Cancer Screening-Mammogram 03/15/2022 021 Fall Risk Assessment 06/14/2025 06/14/2024 Influenza Vaccine (#1) 2025 , 08/25/2020, 08/25/2020, Additional history exists Osteoporosis Screening-Bone Density Scan 10/04/2026 10/04/2024, 12/20/2021, 07/27/2016 Hepatitis C Screening Completed 02/22/2018 , 01/18/2018, 07/06/2017, Additional history exists Zoster Vaccine Completed 11/08/2019, 10/21, 11/08/2019, Additional history exists Pneumococcal vaccine 65+ Completed 022, 05/02/2017, 09/02/2008 Goals Goal Patient Goal Type Associated Problems Recent Progress Patient-Stated? Author CCM Chronic Pain Care Plan Chronic Care Management No change(09/24 9:56 AM SET UP MECHANIC STAMPING MACHINES) No Concepción Canas, RN Note: Problem: Chronic Pain Goals: 1. Minimize further functional decline 2. Maximize quality of life 3. Control pain Strategies: - Activity/exercise program recommendation - Conservative stepwise pain medicine strategy with multi-disciplinary approach - Recommend healthy lifestyle strategies and compensatory methods as needed Medical Devices Implanted Type Area Typewriter Ribbon Winder Device Identifier Shelf Expiration Date Model / Serial / Lot 12 Mm Plate Implanted:Qty: 4 on 04/01/2022 by Esperanza Vernon Ud, MD at [facility] [employer] [id number] / / [employer] Centerpiece 2.6mm 5mm Self Tap Stab Grab Color Coded Spine Screw [id number] - [id number] Implanted:Qty: 12 on 04/01/2022 by Esperanza Vernon Ud, MD at [facility] [employer] [id number] / / [employer] Centerpiece 2.6mm 7mm Self Tap Stab Grab Color Coded Spine Screw [id number] - [id number] Implanted:Qty: 8 on 04/01/2022 by Esperanza Vernon Ud, MD at [facility] [employer] [id number] / / [employer] Graft Bone Strut Cortical Fd Centerpiece 12mm [id number] - [id number] - [id number] Implanted:Qty: 1 on 04/01/2022 by Esperanza Vernon Ud, MD at [facility] [employer] 06/15/2026 [id number] / [employer] Graft Bone Strut Cortical Fd Centerpiece 12mm [id number] - [id number] - [id number] Implanted:Qty: 1 on 04/01/2022 by Esperanza Vernon Ud, MD at [facility] [employer] 06/15/2026 [id number] / [employer] Graft Bone Strut Cortical Fd Centerpiece 12mm [id number] - [id number] - [id number] Implanted:Qty: 1 on 04/01/2022 by Esperanza Vernon Ud, MD at [facility] [employer] 08/31/2026 [id number] / [employer] Graft Bone Strut Cortical Fd Centerpiece 12mm [id number] - [id number] - [id number] Implanted:Qty: 1 on 04/01/2022 by Esperanza Vernon Ud, MD at [facility] [employer] 06/15/2026 [id number] / [employer] Eviva 13cm Identifier Biopsy Site [id number] - [id number] Implanted:Qty: 1 on 02/08/2024 by Hitesh Padilla MD at [facility] Left: Breast [employer] [id number] 07/11/2024 [facility] / / [id number] Procedures Procedure Name Priority Date/Time Associated Diagnosis Comments MRI ABDOMEN W WO CONTRAST Schedule Routine, Read Routine (OP Routine) 05/09/2025 11:04 AM CDT Kidney cysts DEXA AXIAL SKELETON BONE DENSITY 1 OR MORE SITES Schedule Routine, Read Routine (OP Routine) 10/04/2024 10:20 AM SET UP MECHANIC STAMPING MACHINES Age-related osteoporosis without current pathological fracture from Last 3 Months or Most Recently Relevant to Health Maintenance Results * MRI Abdomen W WO Contrast (05/09/2025 11:04 AM CDT) Anatomical Region Laterality Modality Body N/A Magnetic Resonan ce 05/21/2025 12:2 5 PM CDT Narrative 05/21/2025 12:29 PM CDT EXAM DESCRIPTION: MRI ABDOMEN W WO CONTRAST REASON FOR STUDY: Renal mass/cyst, indeterminate, Kidney cysts TECHNIQUE: MRI of the abdomen performed without and with intravenous contrast according to the renal protocol. All images stored on PACS. CONTRAST TYPE/DOSE: 16mL of GADOTERATE MEGLUMINE 0.5 MMOL/ML INTRAVENOUS SOLUTION (SO) injected via intravenous COMPARISON: None REFERENCE: Per ACR white paper recommendations, unless otherwise specified no follow-up imaging is recommended for incidental renal and adrenal lesions per consensus recommendations based on imaging criteria. Further lab evaluation could be pursued based on clinical findings. FINDINGS: LOWER CHEST: No effusion. LIVER: Normal size. No mass. No cysts. GALLBLADDER: No stones, wall thickening or pericholecystic fluid. BILE DUCTS: No intrahepatic or extrahepatic ductal dilatation. SPLEEN: Normal size. No focal lesions. PANCREAS: No masses. No adjacent inflammation or peripancreatic fluid collections. Pancreatic duct not dilated ADRENALS: Normal. KIDNEYS/URINARY TRACT: No solid masses. 5.0 x 4.0 cm T2 hyperintense/T1 hypointense cyst containing thin nonenhancing internal septation in the right kidney. No suspicious features. No suspicious renal lesion bilaterally. No hydronephrosis or hydroureter. Symmetric enhancement. GI: No visualized abnormality. PERITONEUM: No ascites. RETROPERITONEUM: No mass or adenopathy. VASCULATURE: No abdominal aortic aneurysm. MUSCULOSKELETAL: No acute findings. OTHER: No other abnormality. IMPRESSION: Bosniak 2 right renal cyst. No suspicious renal lesion bilaterally. THIS IS AN ELECTRONICALLY VERIFIED FINAL REPORT 05/21/2025 12:29 PM - Electronically signed by Michelle Grijalva M.D. FT: FT Report ID: [id number] Reading Location: [id number] Procedure Note Michelle Harmon MD - 05/21/2025 EXAM DESCRIPTION: MRI ABDOMEN W WO CONTRAST REASON FOR STUDY: Renal mass/cyst, indeterminate, Kidney cysts TECHNIQUE: MRI of the abdomen performed without and with intravenous contrast according to the renal protocol. All images stored on PACS. CONTRAST TYPE/DOSE: 16mL of GADOTERATE MEGLUMINE 0.5 MMOL/ML INTRAVENOUS SOLUTION (SO) injected via intravenous COMPARISON: None REFERENCE: Per ACR white paper recommendations, unless otherwise specifiedno follow-up imaging is recommended for incidental renal and adrenal lesionsper consensus recommendations based on imaging criteria. Further labevaluation could be pursued based on clinical findings. FINDINGS: LOWER CHEST: No effusion. LIVER: Normal size. No mass. No cysts. GALLBLADDER: No stones, wall thickening or pericholecystic fluid. BILE DUCTS: No intrahepatic or extrahepatic ductal dilatation. SPLEEN: Normal size. No focal lesions. PANCREAS: No masses. No adjacent inflammation or peripancreatic fluid collections. Pancreatic duct not dilated ADRENALS: Normal. KIDNEYS/URINARY TRACT: No solid masses. 5.0 x 4.0 cm T2 hyperintense/T1 hypointense cyst containing thin nonenhancing internal septation in theright kidney. No suspicious features. No suspicious renal lesion bilaterally.No hydronephrosis or hydroureter. Symmetric enhancement. GI: No visualized abnormality. PERITONEUM: No ascites. RETROPERITONEUM: No mass or adenopathy. VASCULATURE: No abdominal aortic aneurysm. MUSCULOSKELETAL: No acute findings. OTHER: No other abnormality. IMPRESSION: Bosniak 2 right renal cyst. No suspicious renal lesionbilaterally. THIS IS AN ELECTRONICALLY VERIFIED FINAL REPORT 05/21/2025 12:29 PM - Electronically signed by Michelle Grijalva M.D. FT: FT Report ID: [id number] Reading Location: [id number] us Yousef Liliana Sweeney MD IMRaina MRI PROCEDURES F inal Result * DEXA Axial Skeleton Bone Density Multi Site (10/04/2024 10:20 AM SET UP MECHANIC STAMPING MACHINES) Anatomical Region Laterality Modality Body N/A Mammography 10/04/2024 5:18 PM SET UP MECHANIC STAMPING MACHINES Narrative 10/04/2024 5:19 PM SET UP MECHANIC STAMPING MACHINES EXAM DESCRIPTION: DEXA AXIAL SKELETON BONE DENSITY 1 OR MORE SITES REASON FOR STUDY: 69 y/o year old F with given history of: osteoporosis Typewriter Ribbon Winder/Model: [employer] Horizon A (S/N [id number]) CLINICAL INFORMATION: Current height: 65 inches Maximum [...] Robert Hwang M.D. MF: ANDRADE Report ID: [id number] Reading Location: [place] [address] Procedure Note Robert Hwang MD - 10/04/2024 EXAM DESCRIPTION: DEXA AXIAL SKELETON BONE DENSITY 1 OR MORE SITES REASON FOR STUDY: 69 y/o year old F with given history of:osteoporosis Typewriter Ribbon Winder/Model: Raffstar A (S/N [id number]) CLINICAL INFORMATION: Current height: 65 inches Maximum [...] Robert Hwang M.D. MF: ANDRADE Report ID: [id number] Reading Location: [place] [address] Jamey Jade MD IM DXA PROCEDURES Final Result from Last 3 Months or Most Recently Relevant to Health Maintenance Insurance * Guarantor: Myriam Martinez Account Type Relation to Patient Date of Phone Billing Address Personal/Family Self 1955 [address] [facility] [address] [place] [address] IDPA [facility] MEDICARE ADVANTAGE [facility] Address: [address] [address] [place] [address] * Guarantor: Myriam Martinez Account Type Relation to Patient Date of Phone Billing Address Personal/Family Self 1955 [address] [facility] [address] [place] [address] MEDICARE IDPA [facility] MEDICARE ADVANTAGE IDPA Advance Directives For more information, please contact: [phone] Documents on File Type Date Recorded Patient Assistant Refinery Operator Expl anation ADVANCE DIRECTIVE 11/26/2020 8:52 AM Power of Videotape Editor-Financial/Medica l ADVANCE DIRECTIVE 05/30/2019 9:04 AM ADVANCE DIRECTIVE 05/02/2019 10:17 AM ADVA NCE DIRECTIVE ADVANCE DIRECTIVE 09/26/2016 12:00 AM EMILIANO R OF SUPERVISOR ASSEMBLY ROOM FINANCIAL/MEDICAL ADVANCE DIRECTIVE 03/21/2019 2:54 PM ADVANC [...] specifically selected below: No intubation Care Teams Engineering Faculty Member Relationship Specialty Start Date End Date Salima Emerson PA [address] [place] [address] PCP - General Physician Steam Locomotive Firer/Fireman 12/26/23 Lesa Good MD PhD [address] [facility] [address] [place] [address] Radiation Oncologist Radiation Oncology 10/17/18 Robert Gifford MD [address] [place] [address] Referring Physician Economics Instructor 12/21/18 Nery Bassett MD [address] [place] [address] Referring Physician Obstetrics and Gynecology 04/27/17 Mayur Zaragoza, MEDINA [address] [place] [address] Nurse Practitioner 10/24/19 Salima Emerson PA [address] [place] [address] Physician Steam Locomotive Firer/Fireman 10/24/19 Bharat Corona MD [address] [place] [address] Consulting Physician Gynecologic Oncology 07/16/20 Robert Gifford MD [address] [place] [address] Referring Physician Economics Instructor 12/31/20 Tamara Dia MD [address] [place] [address] Consulting Physician Pain Management 01/23/24
--- OUTSIDE RECORDS SUMMARY | 2025-07-03 02:13 | XMS_ITS ---
Author Organization [facility] Address [address] [place] [address] Care Team Providers Care Network Firewall Engineer Name Role Phone Lesa Good MD PhD Unavailable + Robert Gifford MD Unavailable [phone] Nery Bassett MD Unavailable [phone] Mayur Zaraogza NP Unavailable [phone] Salima Emerson Unavailable [phone] Bharat Corona MD Unavailable [phone] Robert Gifford MD Unavailable Salima Emerson Primary [...] infection) 11/21/2021 Coronary artery disease invo lving [place] coronary artery of [place] heart without angina pectoris 07/29/2021 Chronic low [...] (06/14/2018): Overview: Possible ovarian cancer, following with [facility] Hepatitis C virus 05/01/2017 Elevated tumor markers [...] Provider Cycles Bevacizumab 21 Day Cycles - MEN'S LOCKER ROOM ATTENDANT--NOW 28 DAY CYCLES 01/23/2020 03/31/2021 bevacizumab (AVASTIN)bevacizu mab (AVASTIN) IVPB Therapy Complete Bharat Corona MD 10 of 11 cycles started PACLItaxel / Bevacizumab 21 Day Cycles - MEN'S LOCKER ROOM ATTENDANT 11/08/20 18 01/02/2020 bevacizumab (AVASTIN)bevacizu mab (AVASTIN) IVPBPACLitaxel (TAXOL)PACLItaxel (TAXOL) IVPB in 250 mLPACLItaxel (TAXOL) IVPB in 500 mL Therapy Complete Bharta Corona MD 19 of 19 cycles started Topotecan Weekly / Bevacizumab Every 2 Weeks - MEN'S LOCKER ROOM ATTENDANT 03/22/2018 10/03/2018 bevacizumab (AVASTIN)bevacizu mab (AVASTIN) IVPBtopotecan (HYCAMTIN)topotec an (HYCAMTIN) IVPB Stable Disease Bharat Corona MD 4 of 5 cycles started Oncology Supportive Care Therapy Plan Plan Name Start Date Discontinue Date Treatment [...]
--- OUTSIDE RECORDS SUMMARY | 2025-07-03 02:13 | XMS_ITS ---
Author Organization [facility] Address [facility] [address] [facility] [address] [place] [address] Care Team Providers Care Trade Specialist Name Role Phone Salima Emerson PA-C Primary Care Provider Mayur Johnson Unavailable [phone] REASON FOR VISIT 1 month f/u Social History Sex Assigned At : Social History Observation Description Sex Assigned At Female Encounters Encounter Location Date Provider Diagnosis [facility] [address] [facility] [address] [place] [address] 02/07/2025 Mayur Zaragoza Plan Of Treatment Next Appt Details Provider Name:Mayur avila, 07/08/2025 10:15:00 AM, [address], [facility] [address], [place], [address], Progress Notes * NORMA YOUNGBLOODDOB: [birth year] (70 yo F)Acc No.[id number]:02/07/2025 Patient: Gregorio NORMA INFANTE Provider: ROSA STAUFFER :1955 A ge:69 Y S ex:Female Date:02/07/2025 Address:[address] [place] [address], [address], [place], [place] Pcp:Salima Emerson PA-C Subjective: * Chief Complaints: * 1 . 1 month f/u. * Medical History: Objective: * Vitals: Assessment: Plan: * Treatment: * Billing Information: * Visit Code: * Procedure Codes: * Electronic signature of ROSA Malcolm on 07/03/2025 at 02:13 AM CDT Sign off status: Pending * Provider: ROSA STAUFFER Date: 0 02/07/2025 Generated for Anand hay/Familia/Leny on: 0 07/03/2025 02:13 AM CDT
--- OUTSIDE RECORDS SUMMARY | 2025-07-03 02:13 | XMS_ITS | Encounter Summary ---
Author Organization [facility] Address [address] [place] [address] Care Team Providers Care Power Shear Operator Name Role Phone Geoffrey Forrest MD Unavailable [phone] Lesa Good MD PhD Unavailable + Robert Gifford MD Unavailable [phone] Nery Bassett MD Unavailable [phone] Mayur Zaragoza NP Unavailable [phone] Salima Emerson Unavailable [phone] Nahomy Roger MD Primary Care Provider + [phone] Bharat Corona MD Unavailable [phone] Unknown, Notinfile Unavailable Unavailable Robert Gifford MD Unavailable + [phone] Salima Emerson Primary Care Provider + Tamara Dia MD Primary Care Provider [phone] Salima Emerson Primary Care Provider + Tamara Dia MD Unavailable Reason for Visit * Reason Onset Date Comments Mailed Disc 10/22/2020 Encounter Details Date Type Department Care Team (Late st Contact Info) Description 10/22/2020 Telephone [facility] [address] [facility] [address] [place] [address] Galindo Bassett MD [address] [place] [address] Mailed Disc Social History Tobacco Use Types Packs/Day Years Used Date Smoking Tobacco: Every Day Smokeless Tobacco: Current Alcohol Use Standard Drinks/Week Comments No 0 (1 standard drink = 0.6 oz pur e alcohol) denies Comments No Sex and Gender Information Value Date Recorded Sex Assigned at Not on file Legal Sex Female 5:05 AM TRICOT KNITTING MACHINE OPERATOR Gender Identity Not on file Sexual Orientation Not on file documented as of this encounter Plan of Treatment Not on file documented as of this encounter Goals Goal Patient Goal Type Associated Problems Recent Progress Patient-Stated? Author CCM Chronic Pain Care Plan Chronic Care Management No change(09/24 9:56 AM TRICOT KNITTING MACHINE OPERATOR) No Concepción Canas, RN Note: Problem: [...] COVID: Suspected 01/07/2024 01/07/2024 01/07/2024 12:50 PM TRICOT KNITTING MACHINE OPERATOR COVID19 01/07/2024 01/07/2024 01/17/2024 3:05 AM TRICOT KNITTING MACHINE OPERATOR COVID: Recovered Comment:Added based on recent COVID infection. 01/17/2024 01/22/2024 04/16/2024 3:05 AM C DT documented as of this encounter Care Teams Power Shear Operator Relationship Specialty Start Date End Date Nahomy Roger MD [address] [place] [address] PCP - General Family Medicine 01/02/20 05/18/21 Salima Emerson PA [address] [place] [address] PCP - General Physician Senior Ui Software Engineer 05/19/21 08/21/23 Tamara Dia MD [address] [facility], [address] [address] PCP - General Pain Management 08/22/23 12/25/23 Salima Emerson PA [facility], [address] [address] PCP - General Physician Senior Ui Software Engineer 12/26/23 Geoffrey Forrest MD [address] [place] [address] [address] [place] [address] Consulting Physician Radiation Oncology 08/07/18 4 Lesa Good MD PhD [address] # [facility] [address] [place] [address] Radiation Oncologist Radiation Oncology 10/17/18 Robert Gifford MD [address] [facility] [address] [place] [address] Referring Physician Jailer 12/21/18 Nery Bassett MD [address] [facility] [address] [place] [address] Referring Physician Obstetrics and Gynecology 04/27/17 Mayur Zaragoza NP [address] [place] [address] Nurse Practitioner 10/24/19 Salima Emerson PA [address] [place] [address] Physician Senior Ui Software Engineer 10/24/19 Bharat Corona MD [address] [place] [address] Consulting Physician Gynecologic Oncology 07/16/20 Unknown, Notinfile 12/31/20 12/31/20 Robert Gifford MD Referring Physician Jailer 12/31/20 Tamara Dia MD [address] [facility] [address] Consulting Physician Pain Management 01/23/24 documented as of this encounter
--- OUTSIDE RECORDS SUMMARY | 2025-07-03 02:13 | XMS_ITS | Encounter Summary ---
Author Organization [facility] Healthcare Address [address] [place] [address] Care Team Providers Care Iron Miner Name Role Phone Geoffrey Forrest MD Unavailable [phone] Lesa Good MD PhD Unavailable + Robert Gifford MD Unavailable + [phone] Nery Bassett MD Unavailable [phone] Mayur Zaragoza NP Unavailable +[phone] Salima Emerson Unavailable +[phone] Nahomy Roger MD Primary Care Provider + [phone] Bharat Corona MD Unavailable +[phone] Unknown, Notinfile Unavailable Unavailable Robert Gifford MD Unavailable + [phone] Salima Emerson Primary Care Provider + Tamara Dia MD Primary Care Provider [phone] Salima Emerson Primary Care Provider + Tamraa Dia MD Unavailable Reason for Visit * Reason Onset Date Comments 08/11/2020 Encounter Details Date Type Department Care Team (Late st Contact Info) Description 08/11/2020 Telephone [facility] Advanced Medicine [address] [facility] [address] [place] [address] Galindo Bassett MD [address] [place] [address] FYI Social History Tobacco Use Types Packs/Day Years Used Date Smoking Tobacco: Every Day Smokeless Tobacco: Current Alcohol Use Standard Drinks/Week Comments No 0 (1 standard drink = 0.6 oz pur e alcohol) Comments No Sex and Gender Information Value Date Recorded Sex Assigned at Not on file Legal Sex Female 5:05 AM PUBLIC HEALTH DOCTOR Gender Identity Not on file Sexual Orientation Not on file documented as of this encounter Plan of Treatment Not on file documented as of this encounter Goals Goal Patient Goal Type Associated Problems Recent Progress Patient-Stated? Author CCM Chronic Pain Care Plan Chronic Care Management No change(09/24 9:56 AM PUBLIC HEALTH DOCTOR) No Concepción Canas, RN Note: Problem: Chronic [...] COVID: Suspected 01/07/2024 01/07/2024 01/07/2024 12:50 PM PUBLIC HEALTH DOCTOR COVID19 01/07/2024 01/07/2024 01/17/2024 3:05 AM PUBLIC HEALTH DOCTOR COVID: Recovered Comment:Added based on recent COVID infection. 01/17/2024 01/22/2024 04/16/2024 3:05 AM C DT documented as of this encounter Care Teams Iron Miner Relationship Specialty Start Date End Date Nahomy Roger MD [address] [place] [address] PCP - General Family Medicine 01/02/20 05/18/21 Salima Emerson PA [address] [place] [address] PCP - General Physician Site Specialist 05/19/21 08/21/23 Tamara Dia MD [address] [facility], [address] [address] PCP - General Pain Management 08/22/23 12/25/23 Salima Emerson PA [facility], [address] [address] PCP - General Physician Site Specialist 12/26/23 Geoffrey Forrest MD [address] [place] [address] [address] [place] [address] Consulting Physician Radiation Oncology 08/07/18 4 Lesa Good MD PhD [address] [facility] [address] [place] [address] Radiation Oncologist Radiation Oncology 10/17/18 Robert Gifford MD [address] [facility] [address] [place] [address] Referring Physician Compressor Battery Pellets 12/21/18 Nery Bassett MD [address] [facility] [address] [place] [address] Referring Physician Obstetrics and Gynecology 04/27/17 Mayur Zaragoza NP [address] [place] [address] Nurse Practitioner 10/24/19 Salima Emerson PA [address] [place] [address] Physician Site Specialist 10/24/19 Bharat Corona MD [address] [place] [address] Consulting Physician Gynecologic Oncology 07/16/20 Unknown, Notinfile 12/31/20 12/31/20 Robert Gifford MD Referring Physician Compressor Battery Pellets 12/31/20 Tamara Dia MD [address] [facility], [address] [address] Consulting Physician Pain Management 01/23/24 documented as of this encounter
--- OUTSIDE RECORDS SUMMARY | 2025-07-03 02:13 | XMS_ITS | Encounter Summary ---
Author Organization [facility] Address [address] [place] [address] Care Team Providers Care Tennis Player Name Role Phone Salima Emerson PA-C Primary Care Provider [phone] Mookie Foster MD Unavailable [phone] Encounter Details Date Type Department Care Team (Late st Contact Info) Description 05/05/2020 Hospital Follow-up Call [facility] Telemetry Unit A [address] [address] Rosemarie Mata RN Social History Tobacco Use [...] on filedocumented in this encounter Care Teams Tennis Player Relationship Specialty Start Date End Date Salima Emerson PA-C [address] [place] [address] PCP - General NURSE PRACTITIONER 05/03/20 Mookie Foster MD [address] [place] [address] Consulting Physician HEMATOLOGY/ONCOLOGY 11/22/21 documented as of this encounter
--- OUTSIDE RECORDS SUMMARY | 2025-07-03 02:13 | XMS_ITS | Encounter Summary ---
Author Organization [facility] Address [address] [place] [address] Care Team Providers Care Manager Distribution Center Name Role Phone Karthik Triplett MD Primary Care Provider [phone] Salima Emerson PA-C Primary Care Provider [phone] Mookie Foster MD Unavailable [phone] Encounter Details Date Type Department Care Team (Latest Contact Info) Description 09/25/2018 Abstract [facility] , Thu Modi MD [...] on filedocumented in this encounter Care Teams Manager Distribution Center Relationship Specialty Start Date End Date Karthik Triplett MD [address] [place] [address] [address] [address] PCP - General FAMILY PRACTICE 11/30/17 05/02/20 Salima Emerson PA-C [address] [place] [address] PCP - General NURSE PRACTITIONER 05/03/20 Mookie Foster MD [address] [place] [address] Consulting Physician HEMATOLOGY/ONCOLOGY 11/22/21 documented as of this encounter
--- OUTSIDE RECORDS SUMMARY | 2025-07-03 02:13 | XMS_ITS | Encounter Summary ---
Author Organization [facility] Healthcare Address [address] [place] [address] Care Team Providers Care Dietitian Name Role Phone Geoffrey Forrest MD Unavailable [phone] Lesa Good MD PhD Unavailable + Robert Gifford MD Unavailable + [phone] Nery Bassett MD Unavailable [phone] Mayur Zaragoza NP Unavailable +[phone] Salima Emerson Unavailable [phone] Nahomy Roger MD Primary Care Provider + [phone] Bharat Corona MD Unavailable +[phone] Unknown, Notinfile Unavailable Unavailable Robert Gifford MD Unavailable + [phone] Salima Emerson Primary Care Provider + Tamara Dia MD Primary Care Provider [phone] Salima Emerson Primary Care Provider + Tamara Dia MD Unavailable Reason for Visit * Reason Onset Date Comments Mailed CD 10/02/2020 Encounter Details Date Type Department Care Team (Late st Contact Info) Description 10/02/2020 Telephone [facility] [address] [facility] [address] [place] [address] Galindo Bassett MD [address] [place] [address] Mailed CD Social History Tobacco Use Types Packs/Day Years Used Date Smoking Tobacco: Every Day Smokeless Tobacco: Current Alcohol Use Standard Drinks/Week Comments No 0 (1 standard drink = 0.6 oz pur e alcohol) denies Comments No Sex and Gender Information Value Date Recorded Sex Assigned at Not on file Legal Sex Female 5:05 AM PAPERBOARD BOXES ESTIMATOR Gender Identity Not on file Sexual Orientation Not on file documented as of this encounter Plan of Treatment Not on file documented as of this encounter Goals Goal Patient Goal Type Associated Problems Recent Progress Patient-Stated? Author CCM Chronic Pain Care Plan Chronic Care Management No change(09/24 9:56 AM PAPERBOARD BOXES ESTIMATOR) No Concepción Canas, RN Note: Problem: Chronic [...] COVID: Suspected 01/07/2024 01/07/2024 01/07/2024 12:50 PM PAPERBOARD BOXES ESTIMATOR COVID19 01/07/2024 01/07/2024 01/17/2024 3:05 AM PAPERBOARD BOXES ESTIMATOR COVID: Recovered Comment:Added based on recent COVID infection. 01/17/2024 01/22/2024 04/16/2024 3:05 AM C DT documented as of this encounter Care Teams Dietitian Relationship Specialty Start Date End Date Nahomy Roger MD [address] [place] [address] PCP - General Family Medicine 01/02/20 05/18/21 Salima Emerson PA [address] [place] [address] PCP - General Physician Motorcycle Riding Instructor 05/19/21 08/21/23 Tamara Dia MD [address] [facility], [address] [address] PCP - General Pain Management 08/22/23 12/25/23 Sailma Emerson PA [facility], [address] [address] PCP - General Physician Motorcycle Riding Instructor 12/26/23 Geoffrey Forrest MD [address] [place] [address] [address] [place] [address] Consulting Physician Radiation Oncology 08/07/18 4 Lesa Good MD PhD [address] [facility] [address] [place] [address] Radiation Oncologist Radiation Oncology 10/17/18 Robert Gifford MD [address] LL [facility] [address] [place] [address] Referring Physician Appraiser Timber 12/21/18 Nery Bassett MD [address] LL [facility] [address] [place] [address] Referring Physician Obstetrics and Gynecology 04/27/17 Mayur Zaragoza NP [address] [place] [address] Nurse Practitioner 10/24/19 Salima Emerson PA [address] [place] [address] Physician Motorcycle Riding Instructor 10/24/19 Bharat Corona MD [address] [place] [address] Consulting Physician Gynecologic Oncology 07/16/20 Unknown, Notinfile 12/31/20 12/31/20 Robert Gifford MD Referring Physician Appraiser Timber 12/31/20 Tamara Dia MD [address] [facility] [address] Consulting Physician Pain Management 01/23/24 documented as of this encounter
--- OUTSIDE RECORDS SUMMARY | 2025-07-03 02:14 | XMS_ITS | Patient Health Record ---
Author Organization [facility] [employer] [facility] Address [address] [place] [address] Care Team Providers Care Healthcare Technician Name Role Phone Salima Emerson PA-C Primary Care Provider Mayur Johnson Unavailable [phone] Allergies Allergen (clinical drug ingredient) Drug/Non Drug [...] 1st dose Unknown 05/18/2021 Ad ministered Novel [id number], preservative free Unknown 09/10/2018 Administered Novel [id number], preservative free Unknown 08/25/2020 Administered Pneumococcal polysaccharide [...] Status Risk Notes Problem Generalized anxiety disorder (24306308) Generalized anxiety disorder (F41.1) Active confirmed Problem Insomnia (916372661) Other insomnia (G47.09) Active confirmed Problem Polyneuropathy (60590358) Polyneuropathy, unspecified (G62.9) Active confirmed Problem Mixed bipolar I disorder (83475447) Bipolar disorder, mixed (F31.60) Active confirmed Vital Signs Heart Rate 118 /min 04/08/2025 Height-cm 167.64 cm 04/08/2025 Blood pressure diastolic 77 mm Hg 04/08/2025 Weight-kg 68.04 kg 04/08/2025 Height 66.00 in 04/08/2025 Blood pressure systolic 123 mm Hg 04/08/2025 Weight 150 lbs 04/08/2025 BMI 24.21 kg/m2 04/08/2025 Encounters Encounter Location Date Provider Diagnosis [facility] [employer] [facility] [address] [facility] [address] [address] 09/24/2024 Mayurmorenita Reneea Generalized anxiety disorder F41.1 ; Polyneuropathy, unspecified G62.9 ; Drug induced subacute dyskinesia G24.01 ; Other insomnia G47.09 and Bipolar disorder, mixed F31.60 [facility] [place] [address] [address] 12/24/2024 Mayur Estebanoza Generalized anxiety disorder F41.1 ; Polyneuropathy, unspecified G62.9 ; Drug induced subacute dyskinesia G24.01 ; Other insomnia G47.09 and Bipolar disorder, mixed F31.60 [facility] [place] [address] [address] 03/11/2025 Mayur Zaragoza Encounter for screen ing for depression Z13.31 ; Nicotine use Z72.0 ; Generalized anxiety disorder F41.1 ; Polyneuropathy, unspecified G62.9 ; Drug induced subacute dyskinesia G24.01 ; Other insomnia G47.09 and Bipolar disorder, mixed F31.60 [facility] [place] [address] [address] 04/08/2025 Mayur Zaragoza Encounter for screen ing [...] primary care physician or consider referral to supervisor painting 2. Insomnia: - Patient reports difficulty sleeping [...] activities: - Patient reports going out with asbestos handler three days a week and participating in activities such as bingo. Plan: - Encourage patient to continue engaging in social activities and utilizing asbestos handler support for improved mental health 6. Follow-up: [...] primary care physician or consider referral to supervisor painting 2. Insomnia: - Patient reports difficulty sleeping [...] activities: - Patient reports going out with asbestos handler three days a week and participating in activities such as bingo. Plan: - Encourage patient to continue engaging in social activities and utilizing asbestos handler support for improved mental health 6. Follow-up: [...] primary care physician or consider referral to supervisor painting 2. Insomnia: - Patient reports difficulty sleeping [...] activities: - Patient reports going out with asbestos handler three days a week and participating in activities such as bingo. Plan: - Encourage patient to continue engaging in social activities and utilizing asbestos handler support for improved mental health 6. Follow-up: [...] primary care physician or consider referral to supervisor painting 2. Insomnia: - Patient reports difficulty sleeping [...] activities: - Patient reports going out with asbestos handler three days a week and participating in activities such as bingo. Plan: - Encourage patient to continue engaging in social activities and utilizing asbestos handler support for improved mental health 6. Follow-up: [...] primary care physician or consider referral to supervisor painting 2. Insomnia: - Patient reports difficulty sleeping [...] activities: - Patient reports going out with asbestos handler three days a week and participating in activities such as bingo. Plan: - Encourage patient to continue engaging in social activities and utilizing asbestos handler support for improved mental health 6. 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 Peripheral neuropathy: - Patient reports worsening tingling in feet and is currently on pregabalin for neuropathy management. Plan: - Continue pregabalin as prescribed - Encourage patient to discuss neuropathy management with primary care physician or consider referral to supervisor painting 2. Insomnia: - Patient reports difficulty sleeping [...] activities: - Patient reports going out with asbestos handler three days a week and participating in activities such as bingo. Plan: - Encourage patient to continue engaging in social activities and utilizing asbestos handler support for improved mental health 6. Follow-up: [...] Details Provider Name:Mayur avila, 07/08/2025 10:15:00 AM, [address], [facility] [address], [place], [address], Insurance Providers Payer Name Payer Address Payer Phone Subscriber Number Group Number Insured Name Patient Relationship to Insured Coverage Start Date Coverage End Date [place] [address] [place] [address] [id number] NORMA MARTINEZ Self - patient is the insured [employer] - [employer] Medicare Replacement /Advantag [address] [address] [place] [address] [id number] COS NORMA MARTINEZ Self - patient is [...]
--- OUTSIDE RECORDS SUMMARY | 2025-07-03 02:14 | XMS_ITS | Encounter Summary ---
Author Organization [facility] Care Team Providers Care Mucker Cofferdam Name Role Phone Karthik Triplett MD Primary Care Provide r Geoffrey Forrest MD Unavailable [phone] Bharat Corona MD Unavailable [phone] Lesa Good MD PhD Unavailable + Juanita Lobo Primary Care Provider U Patria Rajan NP Primary Care Provider [phone] Karthik Triplett MD Primary Care Provide r Robert Gifford MD Unavailable + [phone] Juanita Lobo Primary Care Provider U Juanita Kolb Primary Care Provider U Patria Rajan NP Primary Care Provider [phone] Juanita Lobo Primary Care Provider U Nery Salmon MD Unavailable [phone] Mayur Zaragoza CONTINUOUS IMPROVEMENT INTERN Unavailable [phone] Salima Emerson Unavailable [phone] Nahomy Roger MD Primary Care Provider [phone] Bharat Corona MD Unavailable +[phone] Unknown, Notinfile Unavailable Unavailable Robert Gifford MD Unavailable + [phone] Salima Emerson Primary Care Provider + Tamara Dia MD Primary Care Provider [phone] Salima Emerson Primary Care Provider + Tamara Dia MD Unavailable Encounter Details Date Type Department Care Team (Latest Contact Info) Description 05/18/2017 Orders Only [facility] ProviderSalbador MD [address] [place] [address] Social History Tobacco Use Types Packs/Day Years Used Date Smoking Tobacco: Every Day Comments Unknown Sex and Gender Information Value Date Recorded Sex Assigned at Not on file Legal Sex Female 5:05 AM ACCESS DIRECTOR Gender Identity Not on file Sexual Orientation [...] COVID: Suspected 01/07/2024 01/07/2024 01/07/2024 12:50 PM ACCESS DIRECTOR COVID19 01/07/2024 01/07/2024 01/17/2024 3:05 AM ACCESS DIRECTOR COVID: Recovered Comment:Added based on recent COVID infection. 01/17/2024 01/22/2024 04/16/2024 3:05 AM C DT documented as of this encounter Care Teams Mucker Cofferdam Relationship Specialty Start Date End Date Karthik Triplett MD [address] [place] [address] PCP - General 05/05/17 11/28/18 Juanita Lobo [address] [place] [address] PCP - General 11/29/18 11/29/18 Patria Kearney NP [address] [facility] [address] [place] [address] PCP - General Nurse Practitioner 11/30/18 12/09/18 Karthik Triplett MD [address] [place] [address] PCP - General 12/10/18 01/09/19 Juanita Lobo [address] LL [address] [place] [address] PCP - General 01/11/19 02/13/19 Juanita Lobo [address] LL [address] [place] [address] PCP - General 01/10/19 01/10/19 Patria Kearney CONTINUOUS IMPROVEMENT INTERN [address] [place] [address] PCP - General 02/14/19 02/14/19 Juanita Lobo [address] [place] [address] PCP - General 02/15/19 01/01/20 Nahomy Roger MD [address] [place] [address] [address] [place] [address] PCP - General Family Medicine 01/02/20 05/18/21 Salima Emerson PA [address] [place] [address] PCP - General Physician Tube Operator 05/19/21 08/21/23 Tamara Dia MD [address] [facility] [address] PCP - General Pain Management 08/22/23 12/25/23 Salima Emerson PA [address] [place] [address] [address] PCP - General Physician Tube Operator 12/26/23 Geoffrey Forrest MD [address] [facility] [address] [place] [address] Consulting Physician Radiation Oncology 08/07/18 4 Bharat Corona MD [address] [facility] [address] [place] [address] Referring Physician Gynecologic Oncology 08/07/1807/10 Lesa Good MD PhD [address] [facility] # LL LL [address] [place] [address] Radiation Oncologist Radiation Oncology 10/17/18 Robert Gifford MD [address] [place] [address] Referring Physician Diversified Crops Supervisor 12/21/18 Nery Bassett MD [address] [place] [address] Referring Physician Obstetrics and Gynecology 04/27/17 Mayur Zaragoza, MEDINA [address] [place] [address] Nurse Practitioner 10/24/19 Salima Emerson PA [address] [place] [address] Physician Tube Operator 10/24/19 Bharat Corona MD [address] [place] [address] Consulting Physician Gynecologic Oncology 07/16/20 Unknown, Notinfile 12/31/20 12/31/20 Robert Gifford MD Referring Physician Diversified Crops Supervisor 12/31/20 Tamara Dia MD [address] [facility] [address] Consulting Physician Pain Management 01/23/24 documented as of this encounter
--- OUTSIDE RECORDS SUMMARY | 2025-07-03 02:14 | XMS_ITS | Encounter Summary ---
Author Organization [facility] Facility Care Team Providers Care Computed Tomography Technologist Name Role Phone Karthik Triplett MD Primary Care Provide r Unknown, Notinfile Primary Care Provider Unavail able Karthik Triplett MD Primary Care Provide r Geoffrey Forrest MD Unavailable [phone] Bharat Corona MD Unavailable + [phone] Lesa Good MD PhD Unavailable + Juanita Lobo Primary Care Provider U Patria Rajan ADDICTION MEDICINE PHYSICIAN Primary Care Provider [phone] Karthik Triplett MD Primary Care Provide r Robert Gifford MD Unavailable + [phone] Juanita Lobo Primary Care Provider U Juanita Kolb Primary Care Provider U Patria Rajan NP Primary Care Provider [phone] Juanita Lobo Primary Care Provider U Nery Salmon MD Unavailable +[phone] Mayur Zaragoza NP Unavailable +[phone] Salima Emerson Unavailable + [phone] Nahomy Roger MD Primary Care Provider [phone] Bharat Corona MD Unavailable +[phone] Unknown, Notinfile Unavailable Unavailable Robert Gifford MD Unavailable + [phone] Salima Emerson Primary Care Provider + Tamara Dia MD Primary Care Provider +[phone] Salima Emerosn Primary Care Provider + Tamara Dia MD Unavailable Encounter Details Date Type Department Care Team (Latest Contact Info) Description 04/03/2017 Orders Only [facility] CLINCONV Provider, MD Salbador [address] [place] [address] Social History Tobacco Use Types Packs/Day Years Used Date Smoking Tobacco: Never Assessed Comments Unknown Sex and Gender Information Value Date Recorded Sex Assigned at Not on file Legal Sex Female 5:05 AM GUEST EXPERIENCE CAPTAIN Gender Identity Not on file Sexual Orientation [...] COVID: Suspected 01/07/2024 01/07/2024 01/07/2024 12:50 PM GUEST EXPERIENCE CAPTAIN COVID19 01/07/2024 01/07/2024 01/17/2024 3:05 AM GUEST EXPERIENCE CAPTAIN COVID: Recovered Comment:Added based on recent COVID infection. 01/17/2024 01/22/2024 04/16/2024 3:05 AM C DT documented as of this encounter Care Teams Computed Tomography Technologist Relationship Specialty Start Date End Date Karthik Triplett MD [address] [place] [address] PCP - General 04/20/17 04/30/17 Unknown, Notinfile PCP - General 05/01/17 05/04/17 Karthik Triplett MD [address] [place] [address] PCP - General 05/05/17 11/28/18 Juanita Lobo [address] [address] PCP - General 11/29/18 11/29/18 Patria Kearney ADDICTION MEDICINE PHYSICIAN [address] [address] PCP - General Nurse Practitioner 11/30/18 12/09/18 Karthik Triplett MD [address] [place] [address] PCP - General 12/10/18 01/09/19 Juanita Lobo [address] [place] [id number] [place] [address] PCP - General 01/11/19 02/13/19 Juanita Lobo [address] [address] PCP - General 01/10/19 01/10/19 Patria Kearney ADDICTION MEDICINE PHYSICIAN [address] [facility] [address] [place] [address] PCP - General 02/14/19 02/14/19 Juanita Lobo [address] [place] [address] PCP - General 02/15/19 01/01/20 Nahomy Roger MD [address] [place] [address] PCP - General Family Medicine 01/02/20 05/18/21 Salima Emerson PA [address] [place] [address] PCP - General Physician Tank Builder Supervisor 05/19/21 08/21/23 Tamara Dia MD [address]00 [facility] [address] PCP - General Pain Management 08/22/23 12/25/23 Salima Emerson PA [address] [place] [address] [address] PCP - General Physician Tank Builder Supervisor 12/26/23 Geoffrey Forrest MD [address] [facility] [address] [place] [address] Consulting Physician Radiation Oncology 08/07/18 4 Bharat Corona MD [address] [place], [place] [address] Referring Physician Gynecologic Oncology 08/07/1807/10 Lesa Good MD PhD [address] [place] [address] Radiation Oncologist Radiation Oncology 10/17/18 Robert Gifford MD 1215 [facility] 100 [place] [address] Referring Physician Lugger 12/21/18 Nery Bassett MD 1215 [facility] [address] [place] [address] Referring Physician Obstetrics and Gynecology 04/27/17 Mayur Zaragoza, MEDINA [address] [place] [address] Nurse Practitioner 10/24/19 Salima Emerson PA [address] [place] [address] Physician Tank Builder Supervisor 10/24/19 Bharat Corona MD [address] [place] [address] Consulting Physician Gynecologic Oncology 07/16/20 Unknown, Notinfile 12/31/20 12/31/20 Robert Gifford MD [address] [place] [address] Referring Physician Lugger 12/31/20 Tamara Dia MD [address] [facility] [address] Consulting Physician Pain Management 01/23/24 documented as of this encounter
--- OUTSIDE RECORDS SUMMARY | 2025-07-03 02:14 | XMS_ITS | Encounter Summary ---
Author Organization [facility] Facility Care Team Providers Care National Park Ranger Name Role Phone Karthik Triplett MD Primary Care Provide r Unknown, Notinfile Primary Care Provider Unavail able Karthik Triplett MD Primary Care Provide r Geoffrey Forrest MD Unavailable [phone] Bharat Corona MD Unavailable + [phone] Lesa Good MD PhD Unavailable + Juanita Lobo Primary Care Provider U Patria Rajan PAPER WINDER Primary Care Provider [phone] Karthik Triplett MD Primary Care Provide r Robert Gifford MD Unavailable + [phone] Juanita Lobo Primary Care Provider U Juanita Kolb Primary Care Provider U Patria Rajan NP Primary Care Provider [phone] Juanita Lobo Primary Care Provider U Nery Salmon MD Unavailable +[phone] Mayur Zaragoza NP Unavailable +[phone] Salima Emerson Unavailable + [phone] Nahomy Roger MD Primary Care Provider [phone] Bharat Corona MD Unavailable +[phone] Unknown, Notinfile Unavailable Unavailable Robert Gifford MD Unavailable + [phone] Salima Emerson Primary Care Provider + Tamara Dia MD Primary Care Provider +[phone] Salima Emerson Primary Care Provider + Tamara Dia MD Unavailable Encounter Details Date Type Department Care Team (Latest Contact Info) Description 09/20/2016 Orders Only [facility]G CLINCONV Provider, MD Salbador [address] [place] [address] Social History Tobacco Use Types Packs/Day Years Used Date Smoking Tobacco: Never Assessed Comments Unknown Sex and Gender Information Value Date Recorded Sex Assigned at Not on file Legal Sex Female 5:05 AM FORM BLOCK MAKER Gender Identity Not on file Sexual Orientation [...] COVID: Suspected 01/07/2024 01/07/2024 01/07/2024 12:50 PM FORM BLOCK MAKER COVID19 01/07/2024 01/07/2024 01/17/2024 3:05 AM FORM BLOCK MAKER COVID: Recovered Comment:Added based on recent COVID infection. 01/17/2024 01/22/2024 04/16/2024 3:05 AM C DT documented as of this encounter Care Teams National Park Ranger Relationship Specialty Start Date End Date Karthik Triplett MD [address] [place] [address] PCP - General 04/20/17 04/30/17 Unknown, Notinfile PCP - General 05/01/17 05/04/17 Karthik Triplett MD [address] [place] [address] PCP - General 05/05/17 11/28/18 Juanita Lobo [address] [address] PCP - General 11/29/18 11/29/18 Patria Kearney PAPER WINDER [address] [address] PCP - General Nurse Practitioner 11/30/18 12/09/18 Karthik Triplett MD [address] [place] [address] PCP - General 12/10/18 01/09/19 Juanita Lobo [address] [place] [id number] [place] [address] PCP - General 01/11/19 02/13/19 Juanita Lobo [address] [address] PCP - General 01/10/19 01/10/19 Patria Kearney PAPER WINDER [facility] [facility] 100 [place] [address] PCP - General 02/14/19 02/14/19 Juanita Lobo [address] [place] [address] PCP - General 02/15/19 01/01/20 Nahomy Roger MD [address] [place] [address] PCP - General Family Medicine 01/02/20 05/18/21 Salima Emerson PA [address] [place] [address] PCP - General Physician Staff Interpreter 05/19/21 08/21/23 Tamara Dia MD 4700 [facility] [address] PCP - General Pain Management 08/22/23 12/25/23 Salima Emerson PA [address] [place] [address] [address] PCP - General Physician Staff Interpreter 12/26/23 Geoffrey Forrest MD [address] [facility] [address] [place] [address] Consulting Physician Radiation Oncology 08/07/18 4 Bharat Corona MD [address] [place], [place] [address] Referring Physician Gynecologic Oncology 08/07/1807/10 Lesa Good MD PhD [address] [place] [address] Radiation Oncologist Radiation Oncology 10/17/18 Robert Gifford MD 1215 [facility] 100 [place] [address] Referring Physician Wader Boot Top Assembler 12/21/18 Nery Bassett MD 1215 [facility] 100 [place] [address] Referring Physician Obstetrics and Gynecology 04/27/17 Mayur Zraagoza, MEDINA [address] [place] [address] Nurse Practitioner 10/24/19 Salima Emerson PA [address] [place] [address] Physician Staff Interpreter 10/24/19 Bharat Corona MD [address] [place] [address] Consulting Physician Gynecologic Oncology 07/16/20 Unknown, Notinfile 12/31/20 12/31/20 Robert Gifford MD [address] [place] [address] Referring Physician Wader Boot Top Assembler 12/31/20 Tamara Dia MD 4700 [facility] [address] Consulting Physician Pain Management 01/23/24 documented as of this encounter
--- OUTSIDE RECORDS SUMMARY | 2025-07-03 02:14 | XMS_ITS | Encounter Summary ---
Author Organization [facility] Address [address] [place] [address] Phone Care Team Providers Care Copy Editor Name Role Phone KiSalima majano A PAC Primary Care Provider [phone] Mookie Foster MD Unavailable [phone] Encounter Details Date Type Department Care Team (Late st Contact Info) Description 12/21/2021 Telephone [facility] [address] [place] [address] Spencer Mcqueen MD [address] [place] [address] Social History Tobacco Use Types [...] on file Legal Sex Female 3:47 PM HANDMADE TILE ARTIST Gender Identity Not on file Sexual Orientation Not on file COVID-19 Exposure Response Date Recorded In the last month, have you been in contact with someone who was confirmed or suspected to have Coronavirus / COVID-19? No / Unsure 11/25/2021 10:02 AM HANDMADE TILE ARTIST documented as of this encounter Miscellaneous Notes * Telephone Encounter - Huber Doe DO - 12/21/2021 4:02 PM CST Noted, included dr foster MADE TILE ARTIST * Telephone Encounter - Ina Morin - 12/21/2021 2:57 PM CST Called to reschedule pt CT SCAN. Patient decided that she [facility] not [facility] She will be following up with treatment from another facility. Referring doctor has been alerted. Salima Emerson PAC spoke with Zeenat. MADE TILE ARTIST documented in this encounter Plan of Treatment Not on file documented as of this encounter Visit Diagnoses Not on filedocumented in this encounter Additional Health Concerns Assessment Noted Time PHQ-9 Depression Total Score: 13 022 10:40 AM HANDMADE TILE ARTIST documented as of this encounter Care Teams Copy Editor Relationship Specialty Start Date End Date Salima Emerson PAC [address] [place] [address] PCP - General Physician Marketing Support Assistant 11/22/21 Mookie Foster MD [address] [place] [address] Consulting Physician Oncology 11/22/21 documented as of this encounter
--- OUTSIDE RECORDS SUMMARY | 2025-07-03 02:14 | XMS_ITS | Encounter Summary ---
Author Organization [facility] Address [address] [place] [address] Phone Care Team Providers Care All Source Intelligence Technician Name Role Phone Salima Emerson PAC Primary Care Provider [phone] Mookie Foster MD Unavailable [phone] Encounter Details Date Type Department Care Team (Late st Contact Info) Description 12/21/2021 Telephone [facility] [address] [facility] [address] [place] [address] Mookie Foster MD 1052 [facility] [address] [place] [address] Social History Tobacco Use Types [...] on file Legal Sex Female 3:47 PM DIRECTOR PATIENT FINANCIAL SERVICES Gender Identity Not on file Sexual Orientation Not on file COVID-19 Exposure Response Date Recorded In the last month, have you been in contact with someone who was confirmed or suspected to have Coronavirus / COVID-19? No / Unsure 11/25/2021 10:02 AM DIRECTOR PATIENT FINANCIAL SERVICES documented as of this encounter Plan of Treatment Not on file documented as of this encounter Visit Diagnoses Not on filedocumented in this encounter Additional Health Concerns Assessment Noted Time PHQ-9 Depression Total Score: 13 022 10:40 AM DIRECTOR PATIENT FINANCIAL SERVICES documented as of this encounter Care Teams All Source Intelligence Technician Relationship Specialty Start Date End Date Salima Emerson PAC [address] [place] [address] PCP - General Physician Cut Plug Packer 11/22/21 Mookie Foster MD [address] [place] [phone] Consulting Physician Oncology 11/22/21 documented as of this encounter
--- OUTSIDE RECORDS SUMMARY | 2025-07-03 02:14 | XMS_ITS | Encounter Summary ---
Author Organization [facility] Facility Care Team Providers Care Library Associate Name Role Phone Karthik Triplett MD Primary Care Provide r Unknown, Notinfile Primary Care Provider Unavail able Karthik Triplett MD Primary Care Provide r Geoffrey Forrest MD Unavailable [phone] Bharat Corona MD Unavailable + [phone] Lesa Good MD PhD Unavailable + Juanita Lobo Primary Care Provider U Patria Rajan DEVOPS DEVELOPER Primary Care Provider [phone] Karthik Triplett MD Primary Care Provide r Robert Gifford MD Unavailable + [phone] Juanita Lobo Primary Care Provider U Juanita Kolb Primary Care Provider U Patria Rajan NP Primary Care Provider [phone] Juanita Lobo Primary Care Provider U Nery Salmon MD Unavailable +[phone] Mayur Zaragoza NP Unavailable [phone] Salima Emerson Unavailable + [phone] Nahomy Roger MD Primary Care Provider [phone] Bharat Corona MD Unavailable +[phone] Unknown, Notinfile Unavailable Unavailable Robert Gifford MD Unavailable + [phone] Salima Emerson Primary Care Provider + Tamara Dia MD Primary Care Provider +[phone] Salima Emerson Primary Care Provider + Tamara Dia MD Unavailable Encounter Details Date Type Department Care Team (Latest Contact Info) Description 10/06/2016 Orders Only MMG CLINCONV Provider, MD Salbador [address] [place] [address] Social History Tobacco Use Types Packs/Day Years Used Date Smoking Tobacco: Never Assessed Comments Unknown Sex and Gender Information Value Date Recorded Sex Assigned at Not on file Legal Sex Female 5:05 AM ADVERTISING AGENCY MANAGER Gender Identity Not on file Sexual Orientation Not on file documented as of this encounter Plan of Treatment Not on file documented as of this encounter Procedures Procedure Name Priority Date/Time Associated Diagnosis Comments PROCEDURE - RESULT 09/29/2016 12 :00 AM ADVERTISING AGENCY MANAGER documented in this encounter Results * PROCEDURE - RESULT (09/29/2016 12:00 AM ADVERTISING AGENCY MANAGER) Narrative 09/29/2016 12:00 AM ADVERTISING AGENCY MANAGER Ordered by an unspecified provider. Historical Provider Final Res ult documented in this encounter Visit Diagnoses Not on filedocumented in this encounter Additional Health Concerns Infection Onset Date Last Indicated Resolved Time COVID: Suspected 06/26/2022 06/26/2022 06/26/2022 6:52 PM CDT COVID: Suspected 03/22/2023 03/22/2023 03/22/2023 8:17 AM CDT COVID: Suspected 01/07/2024 01/07/2024 01/07/2024 12:50 PM ADVERTISING AGENCY MANAGER COVID19 01/07/2024 01/07/2024 01/17/2024 3:05 AM ADVERTISING AGENCY MANAGER COVID: Recovered Comment:Added based on recent COVID infection. 01/17/2024 01/22/2024 04/16/2024 3:05 AM C DT documented as of this encounter Care Teams Library Associate Relationship Specialty Start Date End Date Karthik Triplett MD [address] [place] [address] PCP - General 04/20/17 04/30/17 Unknown, Notinfile PCP - General 05/01/17 05/04/17 Karthik Triplett MD [address] [place] [address] PCP - General 05/05/17 11/28/18 Juanita Lobo [address] [address] PCP - General 11/29/18 11/29/18 Patria Kearney DEVOPS DEVELOPER [address] [place] [address] PCP - General Nurse Practitioner 11/30/18 12/09/18 Karthik Triplett MD [address] [place] [address] PCP - General 12/10/18 01/09/19 Juanita Lobo [address] [place] [id number] [place] [address] PCP - General 01/11/19 02/13/19 Juanita Lobo [address] [address] PCP - General 01/10/19 01/10/19 Patria Kearney DEVOPS DEVELOPER [address] [facility] [address] [address] PCP - General 02/14/19 02/14/19 Juanita Lobo [address] [place] [address] PCP - General 02/15/19 01/01/20 Nahomy Roger MD [address] [place] [address] PCP - General Family Medicine 01/02/20 05/18/21 Salima Emerson PA [address] [place] [address] PCP - General Physician Special Machine Operator 05/19/21 08/21/23 Tamara Dia MD [address]00 [facility], [address] [address] PCP - General Pain Management 08/22/23 12/25/23 Salima Emerson PA [address] [place] [address] PAIN CENTER, [address] [address] PCP - General Physician Special Machine Operator 12/26/23 Geoffrey Forrest MD [address] [facility] [address] [place], [place] [address] Consulting Physician Radiation Oncology 08/07/18 4 Bharat Corona MD [address] [place], [place] [address] Referring Physician Gynecologic Oncology 08/07/1807/10 Lesa Good MD PhD [address] [place] [address] Radiation Oncologist Radiation Oncology 10/17/18 Robert Gifford MD 1215 [facility] 100 [place] [address] Referring Physician Photographic Laboratory Supervisor 12/21/18 Nery Bassett MD [address] [address] Referring Physician Obstetrics and Gynecology 04/27/17 Mayur Zaragoza NP [address] [place] [address] Nurse Practitioner 10/24/19 Salima Emerson PA [address] [place] [address] Physician Special Machine Operator 10/24/19 Bharat Corona MD [address] [place] [address] Consulting Physician Gynecologic Oncology 07/16/20 Unknown, Notinfile 12/31/20 12/31/20 Robert Gifford MD [address] [place] [address] Referring Physician Photographic Laboratory Supervisor 12/31/20 Tamara Dia MD [address] [facility] [address] Consulting Physician Pain Management 01/23/24 documented as of this encounter
--- OUTSIDE RECORDS SUMMARY | 2025-07-03 02:14 | XMS_ITS | Encounter Summary ---
Author Organization [facility] Address [address] [place] [address] Phone Care Team Providers Care Crab Backer Name Role Phone Salima Emerson PAC Primary Care Provider [phone] Mookie Foster MD Unavailable [phone] Encounter Details Date Type Department Care Team (Late st Contact Info) Description 11/29/2021 Telephone [facility] [address] [place] [address] Mookie Foster MD 1052 [facility] [place] [address] [address] Social History Tobacco Use Types [...] on file Legal Sex Female 3:47 PM CONCERT PIANIST Gender Identity Not on file Sexual Orientation Not on file COVID-19 Exposure Response Date Recorded In the last month, have you been in contact with someone who was confirmed or suspected to have Coronavirus / COVID-19? No / Unsure 11/25/2021 10:02 AM CONCERT PIANIST documented as of this encounter Miscellaneous Notes * Telephone Encounter - Lesa Mora - 11/29/2021 11:16 AM CST Patient called to cancel her CT On 12/03 and office visit on 12/09 because she says she doesn't feel good. She will rescheduled once she feels better. ERT PIANIST documented in this encounter Plan of Treatment Not on file documented as of this encounter Visit Diagnoses Not on filedocumented in this encounter Additional Health Concerns Assessment Noted Time PHQ-9 Depression Total Score: 13 022 10:40 AM CONCERT PIANIST documented as of this encounter Care Teams Crab Backer Relationship Specialty Start Date End Date Salima Emerson PAC [address] [place] [address] PCP - General Physician Cultured Marble Products Maker 11/22/21 Mookie Foster MD [address] [place] [phone] Consulting Physician Oncology 11/22/21 documented as of this encounter
--- OUTSIDE RECORDS SUMMARY | 2025-07-03 02:14 | XMS_ITS | Encounter Summary ---
Author Organization [facility] Facility Care Team Providers Care Airplane And Engine Inspector Name Role Phone Karthik Triplett MD Primary Care Provide r Geoffrey Forrest MD Unavailable +[phone] Bharat Corona MD Unavailable +[phone] Lesa Good MD PhD Unavailable + Juanita Lobo Primary Care Provider U Patria Rajan NP Primary Care Provider [phone] Karthik Triplett MD Primary Care Provide r Robert Gifford MD Unavailable + [phone] Juanita Lobo Primary Care Provider U Juanita Kolb Primary Care Provider U Patria Rajan NP Primary Care Provider [phone] Juanita Lobo Primary Care Provider U Nery Salmon MD Unavailable +[phone] Mayur Zaragoza WELDING PRODUCTION SUPERVISOR Unavailable +[phone] Salima Emerson Unavailable [phone] Nahomy Roger MD Primary Care Provider +[phone] Bharat Corona MD Unavailable [phone] Unknown, Notinfile Unavailable Unavailable Robert Gifford MD Unavailable + [phone] Salima Emerson Primary Care Provider + Tamara Dia MD Primary Care Provider [phone] Salima Emerson Primary Care Provider + Tamara Dia MD Unavailable Encounter Details Date Type Department Care Team (Latest Contact Info) Description 10/12/2017 Orders Only MMG CLINCONV ProviderSalbador MD [address] [place] [address] Social History Tobacco Use Types Packs/Day Years Used Date Smoking Tobacco: Every Day Comments Unknown Sex and Gender Information Value Date Recorded Sex Assigned at Not on file Legal Sex Female 5:05 AM VP ANCILLARY Gender Identity Not on file Sexual Orientation Not on file documented as of this encounter Plan of Treatment Not on file documented as of this encounter Procedures Procedure Name Priority Date/Time Associated Diagnosis Comments SCAN - LABS 10/17/2017 12:00 AM VP ANCILLARY documented in this encounter Results * SCAN - LABS (10/17/2017 12:00 AM VP ANCILLARY) Narrative 10/17/2017 12:00 AM VP ANCILLARY Ordered by an unspecified provider. Historical Provider Final Res ult documented in this encounter Visit Diagnoses Not on filedocumented in this encounter Additional Health Concerns Infection Onset Date Last Indicated Resolved Time COVID: Suspected 06/26/2022 06/26/2022 06/26/2022 6:52 PM CDT COVID: Suspected 03/22/2023 03/22/2023 03/22/2023 8:17 AM CDT COVID: Suspected 01/07/2024 01/07/2024 01/07/2024 12:50 PM VP ANCILLARY COVID19 01/07/2024 01/07/2024 01/17/2024 3:05 AM VP ANCILLARY COVID: Recovered Comment:Added based on recent COVID infection. 01/17/2024 01/22/2024 04/16/2024 3:05 AM C DT documented as of this encounter Care Teams Airplane And Engine Inspector Relationship Specialty Start Date End Date Karthik Triplett MD [address] [place] [address] PCP - General 05/05/17 11/28/18 Juanita Lobo [address] [place] [address] PCP - General 11/29/18 11/29/18 Patria Kearney WELDING PRODUCTION SUPERVISOR [address] [place] [address] PCP - General Nurse Practitioner 11/30/18 12/09/18 Karthik Triplett MD [address] [place] [address] PCP - General 12/10/18 01/09/19 Juanita Lobo [address] [place] [address] PCP - General 01/11/19 02/13/19 Juanita Lobo [address] [place] [address] PCP - General 01/10/19 01/10/19 Patria Kearney WELDING PRODUCTION SUPERVISOR [address] [place] [address] PCP - General 02/14/19 02/14/19 Juanita Lobo [address] [place] [address] PCP - General 02/15/19 01/01/20 Nahomy Roger MD [address] [place] [address] [address] [place] [address] PCP - General Family Medicine 01/02/20 05/18/21 Salima Emerson PA [address] [place] [address] PCP - General Physician Watch Repairer 05/19/21 08/21/23 Tamara Dia MD [address] [facility], [address] [address] PCP - General Pain Management 08/22/23 12/25/[address] [facility]0 [facility], [address] [address] PCP - General Physician Watch Repairer 12/26/23 Geoffrey Forrest MD [address] [facility] [address] [place] [address] Consulting Physician Radiation Oncology 08/07/18 4 Bharat Corona MD [address] [facility] [address] [place] [address] Referring Physician Gynecologic Oncology 08/07/1807/10 Lesa Good MD PhD [address] [facility] [address] [place] [address] Radiation Oncologist Radiation Oncology 10/17/18 Robert Gifford MD [address] [place] [address] Referring Physician Heliotherapist 12/21/18 Nery Bassett MD [address] [place] [address] Referring Physician Obstetrics and Gynecology 04/27/17 Mayur Zaragoza NP [address] [place] [address] Nurse Practitioner 10/24/19 Salima Emerson PA [address] [place] [address] Physician Watch Repairer 10/24/19 Bharat Corona MD [address] [place] [address] Consulting Physician Gynecologic Oncology 07/16/20 Unknown, Notinfile 12/31/20 12/31/20 Robert Gifford MD Referring Physician Heliotherapist 12/31/20 Tamara Dia MD [address] [facility], [address] [address] Consulting Physician Pain Management 01/23/24 documented as of this encounter
--- OUTSIDE RECORDS SUMMARY | 2025-07-03 02:14 | XMS_ITS | Encounter Summary ---
Author Organization [facility] Address [address] [place] [address] Phone Care Team Providers Care Dental Secretary Name Role Phone KiSalima majano A PAC Primary Care Provider [phone] Mookie Foster MD Unavailable [phone] Encounter Details Date Type Department Care Team (Late st Contact Info) Description 12/21/2021 Telephone [facility] [address] [place] [address] Huber Doe, DO [address] [place] [address] Social History Tobacco Use Types [...] on file Legal Sex Female 3:47 PM RELIABILITY ENGINEER Gender Identity Not on file Sexual Orientation Not on file COVID-19 Exposure Response Date Recorded In the last month, have you been in contact with someone who was confirmed or suspected to have Coronavirus / COVID-19? No / Unsure 11/25/2021 10:02 AM RELIABILITY ENGINEER documented as of this encounter Miscellaneous Notes * Telephone Encounter - Ina Morin - 12/21/2021 4:35 PM CST Called to reschedule pt CT SCAN. Patient decided that she is not coming back [facility] She will be following up with treatment from another facility. Referring doctor has been alerted. Salima Emerson PAC spoke with Zeenat. ABILITY ENGINEER * Telephone Encounter - Ina Morin - 12/21/2021 4:33 PM CST Called to reschedule pt CT SCAN. Patient decided that she is not coming back to [facility]. She will be following up with treatment from another facility. Referring doctor has been alerted. Salima Emerson PAC spoke with Zeenat. ABILITY ENGINEER documented in this encounter Plan of Treatment Not on file documented as of this encounter Visit Diagnoses Not on filedocumented in this encounter Additional Health Concerns Assessment Noted Time PHQ-9 Depression Total Score: 13 022 10:40 AM RELIABILITY ENGINEER documented as of this encounter Care Teams Dental Secretary Relationship Specialty Start Date End Date Salima Emerson PAC [address] [place] [address] PCP - General Physician Commercial Collections Specialist 11/22/21 Mookie Foster MD [address] [place] [address] Consulting Physician Oncology 11/22/21 documented as of this encounter
--- OUTSIDE RECORDS SUMMARY | 2025-07-03 02:14 | XMS_ITS ---
Author Organization [facility] Address [address], [facility] [address] [place] [address] Phone Care Team Providers Care Shell Plater Name Role Phone Salima Emerson PAC Primary Care Provider + [phone] Mookie Foster MD Unavailable [phone] Active Problems Problem Noted Date Diagnosed Date Ovarian cancer Current Treatment and Therapy Plans SUPPORT - HYDRATION WITH ADDITIVES + ANTIEMETICS - CCSCI* Plan Start Date: 11/25/2021 Plan Provider:Mookie Foster MD Linked Problems Malignant neoplasm of ovary, unspecified laterality (HCC) Treatment Medications No medications scheduled. Past Treatment and Therapy Plans No past plan information found.
--- OUTSIDE RECORDS SUMMARY | 2025-07-03 02:14 | XMS_ITS | Clinical Summary ---
Author Organization [facility] Address [address], [facility] [address] [place] [address] Phone Care Team Providers Care Assistant Manager Of Operations Name Role Phone Salima Emerson PAC Primary Care Provider [phone] Mookie Foster MD Unavailable Allergies Active Allergy [...] on file Legal Sex Female 3:47 PM CRAB PICKER Gender Identity Not on file Sexual Orientation Not on file Last Filed Vital Signs Vital Sign Reading Time Taken Comments Blood Pressure 118/78 11/25/2021 10:31 AM CRAB PICKER Pulse 82 11/25/2021 10:31 AM CRAB PICKER Temperature 36.1 C (96.9 F) 11/25/2021 10:31 AM CRAB PICKER Respiratory Rate 18 11/25/2021 10:31 AM CRAB PICKER Oxygen Saturation 98% 11/25/2021 10:31 AM CRAB PICKER Inhaled Oxygen Concentration - - Weight 58.6 kg (129 lb 1.6 oz) 11/25/2021 10:31 AM CRAB PICKER Height 165.1 cm (5' 5) 11/25/2021 10:31 AM CRAB PICKER Body Mass Index 21.48 11/25/2021 10:31 AM CRAB PICKER Plan of Treatment Health Maintenance Due Date [...] topic Insurance MEDICARE [place]ICAID [place] Care Teams Assistant Manager Of Operations Relationship Specialty Start Date End Date Salima Emerson PAC [address] [place] [address] PCP - General Physician Fixture Designer 11/22/21 Mookie Foster MD [address] [place] [phone] Consulting Physician Oncology 11/22/21
--- OUTSIDE RECORDS SUMMARY | 2025-07-03 02:14 | XMS_ITS | Encounter Summary ---
Author Organization [facility] Facility Care Team Providers Care C Winforms Developer Name Role Phone Karthik Triplett MD Primary Care Provide r Unknown, Notinfile Primary Care Provider Unavail able Karthik Triplett MD Primary Care Provide r Geoffrey Forrest MD Unavailable [phone] Bharat Corona MD Unavailable + [phone] Lesa Good MD PhD Unavailable + Juanita Lobo Primary Care Provider U Patria Rajan CLAY DRY PRESS OPERATOR Primary Care Provider [phone] Karthik Triplett MD Primary Care Provide r Robert Gifford MD Unavailable + [phone] Juanita Lobo Primary Care Provider U Juanita Kolb Primary Care Provider U Patria Rajan NP Primary Care Provider [phone] Juanita Lobo Primary Care Provider U Nery Salmon MD Unavailable +[phone] Mayur Zaragoza NP Unavailable [phone] Salima Emerson Unavailable + [phone] Nahomy Roger MD Primary Care Provider [phone] Bharat Corona MD Unavailable [phone] Unknown, Notinfile Unavailable Unavailable Robert Gifford MD Unavailable + [phone] Salima Emerson Primary Care Provider + Tamara Dia MD Primary Care Provider [phone] Salima Emerson Primary Care Provider + Tamara Dia MD Unavailable Encounter Details Date Type Department Care Team (Latest Contact Info) Description 09/21/2016 Orders Only [facility]G CLINCONV Provider, MD Salbador [address] [place] [address] Social History Tobacco Use Types Packs/Day Years Used Date Smoking Tobacco: Never Assessed Comments Unknown Sex and Gender Information Value Date Recorded Sex Assigned at Not on file Legal Sex Female 5:05 AM PLASTIC WORKER Gender Identity Not on file Sexual [...] COVID: Suspected 01/07/2024 01/07/2024 01/07/2024 12:50 PM PLASTIC WORKER COVID19 01/07/2024 01/07/2024 01/17/2024 3:05 AM PLASTIC WORKER COVID: Recovered Comment:Added based on recent COVID infection. 01/17/2024 01/22/2024 04/16/2024 3:05 AM C DT documented as of this encounter Care Teams C Winforms Developer Relationship Specialty Start Date End Date Karthik Triplett MD [address] [place] [address] PCP - General 04/20/17 04/30/17 Unknown, Notinfile PCP - General 05/01/17 05/04/17 Karthik Triplett MD [address] [place] [address] PCP - General 05/05/17 11/28/18 Juanita Lobo [address] [address] PCP - General 11/29/18 11/29/18 Patria Kearney CLAY DRY PRESS OPERATOR [address] [address] PCP - General Nurse Practitioner 11/30/18 12/09/18 Karthik Triplett MD [address] [place] [address] PCP - General 12/10/18 01/09/19 Juanita Lobo [address] [place] [id number] [place] [address] PCP - General 01/11/19 02/13/19 Juanita Lobo [address] [address] PCP - General 01/10/19 01/10/19 Patria Kearney CLAY DRY PRESS OPERATOR [address] [facility] [address] [facility] [address] [place] [address] PCP - General 02/14/19 02/14/19 Juanita Lobo [address] [place] [address] PCP - General 02/15/19 01/01/20 Nahomy Roger MD [address] [place] [address] PCP - General Family Medicine 01/02/20 05/18/21 Salima Emerson PA [address] [place] [address] PCP - General Physician Marketing And Communications Officer 05/19/21 08/21/23 Tamara Dia MD [address] [facility] [address] PCP - General Pain Management 08/22/23 12/25/23 Salima Emerson PA [address] [place] [address] [address] PCP - General Physician Marketing And Communications Officer 12/26/23 Geoffrey Forrest MD [address] [facility] [address] [place] [address] Consulting Physician Radiation Oncology 08/07/18 4 Bharat Corona MD [address] [place], [place] [address] Referring Physician Gynecologic Oncology 08/07/1807/10 Lesa Good MD PhD [address] [place] [address] [place] [address] Radiation Oncologist Radiation Oncology 10/17/18 Robert Gifford MD [address] [facility] [address] [place] [address] Referring Physician Directional Bore Operator 12/21/18 Nery Bassett MD [address] [facility] [address] [place] [address] Referring Physician Obstetrics and Gynecology 04/27/17 Mayur Zaragoza, MEDINA [address] [place] [address] Nurse Practitioner 10/24/19 Salima Emerson PA [address] [place] [address] Physician Marketing And Communications Officer 10/24/19 Bharat Corona MD [address] [place] [address] Consulting Physician Gynecologic Oncology 07/16/20 Unknown, Notinfile 12/31/20 12/31/20 Robert Gifford MD [address] [place] [address] Referring Physician Directional Bore Operator 12/31/20 Tamara Dia MD [address] [facility] [address] Consulting Physician Pain Management 01/23/24 documented as of this encounter
--- OUTSIDE RECORDS SUMMARY | 2025-07-03 02:14 | XMS_ITS | Encounter Summary ---
Author Organization [facility] Facility Care Team Providers Care Tenant Relations Coordinator Name Role Phone Karthik Triplett MD Primary Care Provide r Geoffrey Forrest MD Unavailable +[phone] Bharat Corona MD Unavailable +[phone] Lesa Good MD PhD Unavailable + Juanita Lobo Primary Care Provider U Patria Rajan NP Primary Care Provider [phone] Karthik Triplett MD Primary Care Provide r Robert Gifford MD Unavailable + [phone] Juanita Lobo Primary Care Provider U Juanita Kolb Primary Care Provider U Patria Rajan NP Primary Care Provider [phone] Juanita Lobo Primary Care Provider U Nery Salmon MD Unavailable [phone] Mayur Zaragoza LEGAL BILLING COORDINATOR Unavailable +[phone] Salima Emerson Unavailable [phone] Nahomy Roger MD Primary Care Provider [phone] Bharat Corona MD Unavailable +[phone] Unknown, Notinfile Unavailable Unavailable Robert Gifford MD Unavailable + [phone] Salima Emerson Primary Care Provider + Tamara Dia MD Primary Care Provider [phone] Salima Emerson Primary Care Provider + Tamara Dia MD Unavailable Encounter Details Date Type Department Care Team (Latest Contact Info) Description 01/24/2018 Orders Only MMG CLINCONV ProviderSalbador MD [address] [place] [address] Social History Tobacco Use Types Packs/Day Years Used Date Smoking Tobacco: Every Day Comments Unknown Sex and Gender Information Value Date Recorded Sex Assigned at Not on file Legal Sex Female 5:05 AM HOSPITAL CARRIER Gender Identity Not on file Sexual Orientation Not on file documented as of this encounter Plan of Treatment Not on file documented as of this encounter Procedures Procedure Name Priority Date/Time Associated Diagnosis Comments SCAN - LABS 01/24/2018 12:00 AM HOSPITAL CARRIER documented in this encounter Results * SCAN - LABS (01/24/2018 12:00 AM HOSPITAL CARRIER) Narrative 01/24/2018 12:00 AM HOSPITAL CARRIER Ordered by an unspecified provider. Historical Provider Final Res ult documented in this encounter Visit Diagnoses Not on filedocumented in this encounter Additional Health Concerns Infection Onset Date Last Indicated Resolved Time COVID: Suspected 06/26/2022 06/26/2022 06/26/2022 6:52 PM CDT COVID: Suspected 03/22/2023 03/22/2023 03/22/2023 8:17 AM CDT COVID: Suspected 01/07/2024 01/07/2024 01/07/2024 12:50 PM HOSPITAL CARRIER COVID19 01/07/2024 01/07/2024 01/17/2024 3:05 AM HOSPITAL CARRIER COVID: Recovered Comment:Added based on recent COVID infection. 01/17/2024 01/22/2024 04/16/2024 3:05 AM C DT documented as of this encounter Care Teams Tenant Relations Coordinator Relationship Specialty Start Date End Date Karthik Triplett MD [address] [place] [address] PCP - General 05/05/17 11/28/18 Juanita Lobo [address] [place] [address] PCP - General 11/29/18 11/29/18 Patria Kearney LEGAL BILLING COORDINATOR [address] [place] [address] PCP - General Nurse Practitioner 11/30/18 12/09/18 Karthik Triplett MD [address] [place] [address] PCP - General 12/10/18 01/09/19 Juanita Lobo [address] [place] [address] PCP - General 01/11/19 02/13/19 Juanita Lobo [address] [place] [address] PCP - General 01/10/19 01/10/19 Patria Kearney LEGAL BILLING COORDINATOR [address] [place] [address] PCP - General 02/14/19 02/14/19 Juanita Lobo [address] [place] [address] PCP - General 02/15/19 01/01/20 Nahomy Roger MD [address] [place] [address] [address] [place] [address] PCP - General Family Medicine 01/02/20 05/18/21 Salima Emerson PA [address] [place] [address] PCP - General Physician Distribution Center Manager 05/19/21 08/21/23 Tamara Dia MD 4700 [facility], [address] [address] PCP - General Pain Management 08/22/23 12/25/23 Salima Emerson PA [facility], [address] [address] PCP - General Physician Distribution Center Manager 12/26/23 Geoffrey Forrest MD [address] [facility] [address] [place] [address] Consulting Physician Radiation Oncology 08/07/18 4 Bharat Corona MD [address] [facility] [address] [place] [address] Referring Physician Gynecologic Oncology 08/07/1807/10 Lesa Good MD PhD 4921 [facility] [address] [place] [address] Radiation Oncologist Radiation Oncology 10/17/18 Robert Gifford MD [address] [place] [address] Referring Physician Test Engineering Manager 12/21/18 Nery Bassett MD [address] [place] [address] Referring Physician Obstetrics and Gynecology 04/27/17 Mayur Zaragoza NP [address] [place] [address] Nurse Practitioner 10/24/19 Salima Emerson PA [address] [place] [address] Physician Distribution Center Manager 10/24/19 Bharat Corona MD [address] [place] [address] Consulting Physician Gynecologic Oncology 07/16/20 Unknown, Notinfile 12/31/20 12/31/20 Robert Gifford MD Referring Physician Test Engineering Manager 12/31/20 Tamara Dia MD [address]00 [facility], [address] [address] Consulting Physician Pain Management 01/23/24 documented as of this encounter
--- OUTSIDE RECORDS SUMMARY | 2025-07-03 02:14 | XMS_ITS | Encounter Summary ---
Author Organization [facility] Address [address] [place] [address] Phone Care Team Providers Care Oil Pipeline Operator Name Role Phone Karthik Triplett MD Primary Care Provide r Geoffrey Forrest MD Unavailable [phone] Bharat Corona MD Unavailable [phone] Lesa Good MD PhD Unavailable + Juanita Lobo Primary Care Provider U Patria Rajan ASSISTANT MERCHANDISER Primary Care Provider [phone] Karthik Triplett MD Primary Care Provide r Robert Gifford MD Unavailable + [phone] Juanita Lobo Primary Care Provider U Juanita Kolb Primary Care Provider U Patria Rajan NP Primary Care Provider [phone] Juanita Lobo Primary Care Provider U Nery Salmon MD Unavailable [phone] Mayur Zaragoza NP Unavailable [phone] Salima Emerson Unavailable [phone] Nahomy Roger MD Primary Care Provider + [phone] Bharat Corona MD Unavailable [phone] Unknown, Notinfile Unavailable Unavailable Robert Gifford MD Unavailable + [phone] Salima Emerson Primary Care Provider + Tamara Dia MD Primary Care Provider [phone] Salima Emerson Primary Care Provider + Tamara Dia MD Unavailable Encounter Details Date Type Department Care Team (Latest Contact Info) Description 10/17/2017 Orders Only [facility] CONVERSION Scanning, Provider Social History Tobacco Use Types Packs/Day Years Used Date Smoking Tobacco: Every Day Comments Unknown Sex and Gender Information Value Date Recorded Sex Assigned at Not on file Legal Sex Female 5:05 AM TELEPHONE INFORMATION CLERK Gender Identity Not on file Sexual Orientation Not on file documented as of this encounter Plan of Treatment Not on file documented as of this encounter Procedures Procedure Name Priority Date/Time Associated Diagnosis Comments VASCULAR LABORATORY REPORT 10/17/2017 9:27 PM TELEPHONE INFORMATION CLERK documented in this encounter Results * VASCULAR LABORATORY REPORT (10/17/2017 9:27 PM TELEPHONE INFORMATION CLERK) Anatomical Region Laterality Modality Ultrasound us Provider Scanning CV VASCULAR PROCEDURES Final R esult documented in this encounter Visit Diagnoses Not on filedocumented in this encounter Additional Health Concerns Infection Onset Date Last Indicated Resolved Time COVID: Suspected 06/26/2022 06/26/2022 06/26/2022 6:52 PM CDT COVID: Suspected 03/22/2023 03/22/2023 03/22/2023 8:17 AM CDT COVID: Suspected 01/07/2024 01/07/2024 01/07/2024 12:50 PM TELEPHONE INFORMATION CLERK COVID19 01/07/2024 01/07/2024 01/17/2024 3:05 AM TELEPHONE INFORMATION CLERK COVID: Recovered Comment:Added based on recent COVID infection. 01/17/2024 01/22/2024 04/16/2024 3:05 AM C DT documented as of this encounter Care Teams Oil Pipeline Operator Relationship Specialty Start Date End Date Karthik Triplett MD [address] [place] [address] PCP - General 05/05/17 11/28/18 Juanita Lobo [address] [place] [address] PCP - General 11/29/18 11/29/18 Patria Kearney NP [address] [facility] [address] [place] [address] PCP - General Nurse Practitioner 11/30/18 12/09/18 Karthik Triplett MD [address] [place] [address] PCP - General 12/10/18 01/09/19 Juanita Lobo [address] [place] [address] PCP - General 01/11/19 02/13/19 Juanita Lobo [address] [place] [address] PCP - General 01/10/19 01/10/19 Patria Kearney ASSISTANT MERCHANDISER [address] [place] [address] PCP - General 02/14/19 02/14/19 Juanita Lobo [address] [place] [address] PCP - General 02/15/19 01/01/20 Nahomy Roger MD [address] [place] [address] [address] [place] [address] PCP - General Family Medicine 01/02/20 05/18/21 Salima Emerson PA [address] [place] [address] PCP - General Physician Home Appliances Mechanic 05/19/21 08/21/23 Tamara Dia MD [address] [facility] [address] PCP - General Pain Management 08/22/23 12/25/23 Salima Emerson PA [address] [place] [address] [address] PCP - General Physician Home Appliances Mechanic 12/26/23 Geoffrey Forrest MD [address] [facility] [address] [place] [address] Consulting Physician Radiation Oncology 08/07/18 4 Bharat Corona MD [address] [facility] [address] [place] [address] Referring Physician Gynecologic Oncology 08/07/1807/10 Lesa Good MD PhD [address] [facility] [address] [place] [address] Radiation Oncologist Radiation Oncology 10/17/18 Robert Gifford MD [address] [place] [address] Referring Physician Commercial Helicopter Pilot 12/21/18 Nery Bassett MD [address] [place] [address] Referring Physician Obstetrics and Gynecology 04/27/17 Mayur Zaragoza, MEDINA [address] [place] [address] Nurse Practitioner 10/24/19 Salima Emerson PA [address] [place] [address] Physician Home Appliances Mechanic 10/24/19 Bharat Corona MD [address] [place] [address] Consulting Physician Gynecologic Oncology 07/16/20 Unknown, Notinfile 12/31/20 12/31/20 Robert Gifford MD Referring Physician Commercial Helicopter Pilot 12/31/20 Tamara Dia MD [address] [facility] [address] Consulting Physician Pain Management 01/23/24 documented as of this encounter
--- NOTE | 2025-07-03 02:45 | ED.NAVMDI ---
HPI - Nausea/Vomiting/Diarrhea General Chief complaint: Nausea/Vomiting/Diarrhea Stated complaint: n/v/d Time Seen by Provider: 07/03/25 02:00 History of Present Illness HPI Narrative: 70-year-old female presenting from home with concerns of nausea vomiting, abdominal pain, generalized weakness and inability to function. Patient states that she lives alone but has a caregiver show up approximately 3 times a week. She has been having difficulty walking lately to the point where she feels too weak to even get out of bed. She laid on the ground for over 24 hours according to the patient. She is complaining of some lower back pain and abdominal pain. Endorses nausea and vomiting. No traumatic injuries no head trauma. She states that she cannot take care of herself at home and is interested in rehab or replacement. Currently she is complaining of feeling nauseous with some abdominal discomfort radiating towards her back. No chest pain. Was otherwise in her normal state of health. Patient states she has significant chronic neuropathy bilaterally also limiting her ambulation. Related Data Home Medications ?Medication ?Instructions ?Recorded ?Confirmed ?Last Taken ?Type omeprazole 20 mg capsule,delayed 20 mg PO DAILY 06/10/21 01/17/25 10/17/21 History release rosuvastatin 5 mg tablet 5 mg PO DAILY 06/10/21 01/17/25 10/17/21 History trazodone 50 mg tablet 100 mg PO HS 06/10/21 01/17/25 10/17/21 History pregabalin 150 mg capsule 150 mg PO BID 04/10/23 01/17/25 Unknown History OLAZAPINE BYMOUTH 01/17/25 01/17/25 Unknown History Allergies Allergy/AdvReac Type Severity Reaction Status Date / Time ciprofloxacin Allergy Unknown Rash Verified 01/05/24 09:35 Review of Systems Review of Systems: As reviewed above in HPI [facility] Past Medical History Medical History Tobacco dependence Peripheral neuropathy due to chemotherapy Degenerative disc disease Gastroesophageal reflux disease Hypertension Chronic obstructive pulmonary disease Hepatitis C Treated in 2007. Ovarian cancer Skin cancer Anemia Anxiety Depression Arthritis Asthma Emphysema of lung Surgical History Surgical History History of laminectomy History of repair of right rotator cuff History of open reduction and internal fixation (ORIF) procedure Ankle fracture. History of tonsillectomy History of appendectomy History of hysterectomy History of lumpectomy of left breast Family History Family History Mother Family history of malignant neoplasm Family history of heart disease in male family member before age 55 Sibling Family history of malignant neoplasm of brain Father Family history of emphysema Social History Social History Social History: Surrogate decision maker: Sai Martinez, fransico. Code status: Full code. Smoking packs per day: 1 Smoking cigarettes per day: 20.0 Years smoked: 55 Smoking pack-years: 55.00 Smoking status: Current every day smoker Second hand tobacco smoke exposure: No Additional smoking assessment comments: Down to 3 to 5 cigarettes a day. Alcohol intake: former Alcohol use details: Drinks socially and in moderation. Substance use: unknown Substance use type: marijuana and painkillers Other substance usage details: Uses a few times a week. Living arrangements: alone Additional living arrangements comments: The patient lives in a senior apartment in [place]. Additional occupation/education comments: Retired. Spiritual care concerns: No Exam Narrative: GENERAL: [Well-appearing, well-nourished, and in no acute distress.] HEAD: [Normocephalic, atraumatic.] EYES: [PERRLA and EOMI.] ENT: Nares clear, no rhinorrhea or epistaxis. Mucous membranes dry. NECK: Supple. CHEST: [Clear to auscultation. No respiratory distress.] HEART: [Regular rate and rhythm]. No murmur heard. [Normal peripheral pulses.] ABDOMEN: [Soft, nondistended], mildly tender to palpation without any overlying skin changes, [No rigidity or guarding] EXTREMITIES: Normal range of motion. [No edema.] No midline tenderness to palpation of the spine SKIN: Warm, dry, no rash. NEURO: [No focal deficits]. Alert and oriented [x3.] PSYCH: [Normal mood and affect.] Course Vital Signs Vital signs: Vital Signs Temperature 36.1 C L 07/02/25 19:48 Pulse Rate 108 H 07/02/25 19:48 Respiratory Rate 19 07/02/25 19:48 Blood Pressure 104/67 07/02/25 19:48 Pulse Oximetry 95 07/02/25 19:48 Oxygen Delivery Room Air 07/02/25 19:48 Temperature 36.1 C L 07/02/25 19:48 Pulse Rate 79 07/03/25 05:31 Respiratory Rate 21 H 07/03/25 05:31 Blood Pressure 114/79 07/03/25 05:31 Pulse Oximetry 99 07/03/25 05:31 Oxygen Delivery Nasal Cannula 07/03/25 04:20 Oxygen Flow Rate 2 07/03/25 04:20 MDM - Nausea/Vomiting/Diarrhea MDM Narrative Medical decision making narrative: 70-year-old female presenting from home with concerns of nausea vomiting, abdominal pain, generalized weakness and inability to function. Patient states that she lives alone but has a caregiver show up approximately 3 times a week. She has been having difficulty walking lately to the point where she feels too weak to even get out of bed. She laid on the ground for over 24 hours according to the patient. She is complaining of some lower back pain and abdominal pain. Endorses nausea and vomiting. No traumatic injuries no head trauma. She states that she cannot take care of herself at home and is interested in rehab or replacement. Currently she is complaining of feeling nauseous with some abdominal discomfort radiating towards her back. No chest pain. Was otherwise in her normal state of health. Patient states she has significant chronic neuropathy bilaterally also limiting her ambulation. Patient appears dehydrated on mucous membranes slightly tachycardic. She is overall not any acute distress, pleasant and cooperative. Has a mildly tender abdomen. No fever or blood pressure concerns. Patient has been having nausea vomiting and this abdominal discomfort with generalized weakness and difficulty ambulating from generalized weakness. She has not fallen or injured herself but states she laid on the ground for 24 hours as she was too weak to move. No visible signs of injury, no visible bruising. Given patient's complaints and concerns a broad workup was ordered for evaluation of potential infectious causes such as urinary infection, intra-abdominal infection, abscess formation, appendicitis, diverticulitis, less likely traumatic injuries. Less likely cranial pathology such as stroke or hemorrhage. CT of the head and CT abdomen pelvis was ordered. Laboratory studies urinalysis ordered. She was given fluid hydration and Zofran. CT scan shows left-sided pneumonia as well as thickening of the sousa of the colon compatible with acute left-sided colitis. Brain CT without any acute abnormalities. Patient started on antibiotics including Rocephin and Zosyn as well as atypical coverage with azithromycin. Likely component of aspiration with her nausea vomiting causing the pneumonia. She is back from CT scan and had an episode where she was profoundly hypoxemic to 82% possibly another aspiration event. She was improved with positioning and supplemental oxygen currently on 2 L nasal cannula improved to 99%. She is afebrile, vital signs improved with fluids and antibiotics initiation. Patient has a white count of 15.7, elevated hemoglobin from baseline likely hemoconcentration and profound dehydration. Electrolyte panel is normal, normal kidney function. Lactic acid 1.4. Elevated CPK consistent with rhabdo from being on the ground. Negative lipase. Spoke to the hospitalist who accepted the patient to the hospital at this time on telemetry. Patient and family made or the plan. Medical Records Attestation: I reviewed the patient's medical records. Lab Data Attestation: I reviewed the patient's lab results. 07/02/25 21:40 07/02/25 21:40 Labs: Lab Results 07/02/25 07/03/25 Range/Units 21:40 01:40 WBC 15.7 H (4.5-10.0) K/mm3 RBC 4.32 (4.2-5.4) M/mm3 Hgb 13.1 D (12.0-15.0) g/dL Hct 39.8 (37.0-47.0) % MCV 92.1 (80-100) fl MCH 30.3 (26-34) pg MCHC 32.9 (32-36) g/dl RDW 14.9 H (11.5-14.5) % Plt Count 220 (150-375) k/mm3 MPV 10.4 (7.4-10.4) fl Immature Gran % (Auto) 1.7 H (0-0.5) % Neut % (Auto) 78.0 H (45.5-73.1) % Lymph % (Auto) 13.8 L (18.3-44.2) % [place] % (Auto) 6.1 (2.6-8.5) % Eos % (Auto) 0.1 (0-4.4) % Baso % (Auto) 0.3 (0.2-1.2) % Lymph # (Auto) 2.17 (0.9-3.2) K/mm3 [place] # (Auto) 1.0 H (0.1-0.6) K/mm3 Eos # (Auto) 0.0 (0-0.3) K/mm3 Baso # (Auto) 0.1 (0.0-0.1) K/mm3 Abs Immat Gran (auto) 0.26 H (0.00-0.031) K/mm3 Absolute Neuts (auto) 12.3 H (1.3-6.7) K/mm3 Absolute Nucleated RBC 0.000 (0.0-0.012) K/mm3 Nucleated RBC % 0.0 (0.0-0.2) % Sodium 139 (137-145) mmol/L Potassium 3.5 (3.4-5.0) mmol/L Chloride 107 (98-107) mmol/L Carbon Dioxide 22 (22-30) mmol/L Anion Gap 10 (4-12) mmol/L BUN 26 H D (7-17) mg/dL Creatinine 0.80 (0.7-1.0) mg/dL Estim Creat Clear Calc 47 ml/min Estimated GFR > 60 (59 - ) Glucose 149 H (65-110) mg/dL Calcium 10.1 (8.4-10.2) mg/dL Total Bilirubin 0.6 (0.2-1.3) mg/dL AST 48 H (14-36) U/L ALT 33 (6-35) U/L Alkaline Phosphatase 90 (38-126) U/L Total Creatine Kinase 554 H (30-135) U/L Total Protein 7.4 (6.3-8.2) g/dL Albumin 4.0 (3.5-5.1) g/dL Lipase 11 L (23-300) U/L Urine Color Dark yellow (Yellow) Urine Appearance Cloudy H (Clear) Urine pH 6.0 (5.0-9.0) Ur Specific [place] 1.029 (1.001-1.035) Urine Protein 1+ H (Negative) mg/dL Urine Glucose (UA) Negative (Negative) mg/dL Urine Ketones Trace H (Negative) mg/dL Ur Blood (Man) Negative (Negative) Urine Nitrate Negative (Negative) Urine Bilirubin Negative (Negative) Urine Urobilinogen 1.0 (<2.0) mg/dL Leukocyte Esterase Rfl 3+ H (Negative) SOFIA/UL Urine RBC 0-2 (0-2) /hpf Urine WBC >100 H (0-3) /hpf Ur Squamous Epith Cells None seen (Few) /hpf Urine Bacteria None seen /hpf Urine Casts 0-2 Imaging Data Attestation: I personally reviewed and interpreted this imaging study as follows: Critical Care Time Critical Care Time Critical Care Time: Yes Total Critical Care Time: 35 Discharge Plan Discharge Clinical Impression: Hypoxemia requiring supplemental oxygen, Rhabdomyolysis, Aspiration pneumonia, Nausea & vomiting, Left sided colitis, Adult failure to thrive, Acute dehydration Patient Disposition: Still a Patient Condition: Stable
[2025-07-03] MEDS: LACTATED RINGERS 1,000 ML 999 ML IV CONT ×2 (03:55→05:08)
[2025-07-03] MEDS: MORPHINE SULFATE (*CRX) 4 MG/ML INJ (03:56)
[2025-07-03] MEDS: ONDANSETRON INJ 4 MG/2 ML VIAL IV PUSH (03:56)
[2025-07-03] MEDS: cefTRIAXone 1 GM in SODIUM CHLORIDE 0.9% IV 50 ML 100 ML IVPB (05:08)
[2025-07-03 05:11] LABS: Creatine Kinase 554 U/L (30-135)
[2025-07-03] MEDS: metroNIDAZOLE 500 MG/ISO 100ML 500 MG/100 ML BAG 100 MG IVPB ×3 (05:11→22:26)
[2025-07-03] MEDS: AZITHROMYCIN IV 500 MG in SODIUM CHLORIDE 0.9% IV 250 ML IVPB (06:14)
[2025-07-03] MEDS: MORPHINE SULFATE (*CRX) 2 MG/ML INJ IV PUSH ×3 (08:11→18:47)
--- NOTE | 2025-07-03 09:46 | ADMGEN ---
This patient, Myriam Martinez, was admitted to [address] [place] [address] Room 314-02 at 0845. Patient/family oriented to hospital policies and general routines including ID bracelet, bed and alarms, visiting hours, pain management, procedures, bathroom and other care routines, personal items, smoking policy, room service/diet, and visiting hours. Information on how to activate the Rapid Response Team has been discussed. Patient/Family are encouraged to report perceived risks to care and to ask questions if they do not understand what they are told or what they should do.
--- NOTE | 2025-07-03 10:25 | P.HP_ITS ---
H&P: HPI History of Present Illness Date/Time: 07/03/25 10:25 Chief Complaint: N/V/D and Weakness Narrative: This is a 70 year old female pt with PMH of Tobacco Dependence, Peripheral Neuropathy due to Chemotherapy last dosed in 2019, DDD, GERD, HTN, COPD, Hep C, Anemia, Anxiety, Depression, Arthritis, and Ovarian CA with METS to colon with last chemo in 2019 who lives independently at a senior apartment presented to the ER overnight with complaints of N/V/D and weakness. She had a caregiver come to her apartment yesterday to help with needs and pt was found laying on the floor by the door. She had reportedly laid there for sometime, although it is not certain how long she was there. She denies any fall or acute traumatic injury/enciting event to make her fall, but notes that when she was found she had had obvious Vomiting and had stooled on herself. She was unable to stand or ambulate and stated she had been getting weaker for sometime and that her neuropathy in her legs makes it very difficult to function as she cannot feel them thoroughly nor move them completely. With that said, she still does not know why she was on the floor. She was brought to the ER for evaluation with complaints of abdominal pain, back pain and nausea. She states that the abdominal pain does radiate towards her back. Pts last chemo was in 2019 and her Oncological care was performed at [facility] in [place]. She has not kept up with her Oncological care and she has not had a colonoscopy since then. She reports she has a lot of back pain but she does not take anything for it at home, she just applies a heating pad. Movement makes the pain worse and laying still makes it better. In the ER workup was performed and CT scan of brain is without any acute intracranial abnormalities, and CT scan A/P shows that she has a left sided PNA, as well as thickening of the sousa of hte colon compatible with acute left sided colitis. She was initiated on abx of Rocephin, Zosyn and Azithromycin. After returning from CT Scan she had an episode where she was found to be extremely hypoxic and it was suspected that she aspirated at that time. She is requiring supplemental oxygenation now for her breathing. Labs showing Leukocytosis at 15.7 with elevated Neuts, Cr normal and BUN slightly high at 26 indicating a degree of deyhdration, Lactic acid of 1.4, and Elevated CPK at 554 as a result of her laying on the floor for a prolonged period of time. Her Urine is indicative of a likely UTI as well with 3+ Leuk Esterase and >100 WBCs. Pt is admitted to the hospital in the current setting for continued management. Review of Systems Review of Systems: All systems reviewed & are unremarkable except as noted in HPI and below PMFSH Past Medical History Medical History (Updated 07/03/25 @ 11:12 by SEBASTIÁN Mendoza) Hyperlipidemia Other abnormalities of gait and mobility Urinary tract infection History of colon cancer Colitis Tobacco dependence Peripheral neuropathy due to chemotherapy Degenerative disc disease Gastroesophageal reflux disease Hypertension Chronic obstructive pulmonary disease Hepatitis C Treated in 2007. Ovarian cancer Skin cancer Anemia Anxiety Depression Arthritis Asthma Emphysema of lung Surgical History Surgical History History of laminectomy History of repair of right rotator cuff History of open reduction and internal fixation (ORIF) procedure Ankle fracture. History of tonsillectomy History of appendectomy History of hysterectomy History of lumpectomy of left breast Family History Family History Mother Family history of malignant neoplasm Family history of heart disease in male family member before age 55 Sibling Family history of malignant neoplasm of brain Father Family history of emphysema Social History Social History Social History: Surrogate decision maker: Sai Martinez, fransico. Code status: Full code. Smoking packs per day: 1 Smoking cigarettes per day: 20.0 Years smoked: 55 Smoking pack-years: 55.00 Smoking status: Current every day smoker Second hand tobacco smoke exposure: No Additional smoking assessment comments: Down to 3-5 cigarettes/day. last was on Monday06/30/25. Alcohol intake: former Alcohol use details: Drinks socially and in moderation. Substance use: unknown Substance use type: marijuana and painkillers Other substance usage details: Uses a few times a week. Lack of Transportation: No Lack of Food: Never True Current Housing: I Have Housing Concerned About Future Housing: No Difficulty Paying Gas/Electric Bills: No Difficulty Paying for Meds: No Currently Unemployed: No Education: High School Diploma/GED Difficulty w/ Childcare or Family Care: No Living arrangements: alone Additional living arrangements comments: [facility] [place]. Additional occupation/education comments: Retired. Spiritual care concerns: No Meds Home Medications and Allergies Home Medications ?Medication ?Instructions ?Recorded ?Confirmed ?Type omeprazole 20 mg capsule,delayed 20 mg PO DAILY 06/10/21 07/03/25 History release rosuvastatin 5 mg tablet 5 mg PO DAILY 06/10/21 07/03/25 History trazodone 50 mg tablet 100 mg PO HS 06/10/21 07/03/25 History albuterol sulfate 90 mcg/actuation 2 puff inhalation Q4-6H PRN 01/05/24 07/03/25 Rx aerosol inhaler shortness of breath or wheezing 30 days #8.5 grams OLAZAPINE 20 mg BYMOUTH DAILY 01/17/25 07/03/25 History Allergies Allergy/AdvReac Type Severity Reaction Status Date / Time ciprofloxacin Allergy Unknown Rash Verified 01/05/24 09:35 Vital Signs Vital Signs - 24 hr 07/02/25 19:48 07/03/25 01:41 07/03/25 03:55 Temperature 97.0 F L Pulse Rate 108 H 94 101 H Respiratory Rate 19 18 22 H Blood Pressure 104/67 121/85 117/74 Pulse Oximetry 95 94 90 Oxygen Delivery Room Air Room Air Oxygen Flow Rate 07/03/25 04:01 07/03/25 04:15 07/03/25 04:16 Temperature Pulse Rate 91 86 Respiratory Rate 19 14 Blood Pressure 109/63 100/62 Pulse Oximetry 87 L 82 L 87 L Oxygen Delivery Room Air Oxygen Flow Rate 07/03/25 04:20 07/03/25 04:30 07/03/25 04:46 Temperature Pulse Rate 83 82 Respiratory Rate 17 13 Blood Pressure 106/73 100/71 Pulse Oximetry 96 99 99 Oxygen Delivery Nasal Cannula Oxygen Flow Rate 2 07/03/25 05:00 07/03/25 05:16 07/03/25 05:31 Temperature Pulse Rate 82 81 79 Respiratory Rate 21 H 21 H 21 H Blood Pressure 111/75 112/74 114/79 Pulse Oximetry 99 99 Oxygen Delivery Oxygen Flow Rate 07/03/25 05:46 07/03/25 06:00 08/14/25 06:16 Temperature Pulse Rate 77 89 69 Respiratory Rate 13 23 H 16 Blood Pressure 101/77 140/75 118/79 Pulse Oximetry 97 98 95 Oxygen Delivery Oxygen Flow Rate 07/03/25 06:31 07/03/25 08:10 07/03/25 09:00 Temperature 97.8 F Pulse Rate 81 85 93 Respiratory Rate 12 12 17 Blood Pressure 106/72 100/69 102/67 Pulse Oximetry 96 96 97 Oxygen Delivery Oxygen Flow Rate Exam Const: General: comfortable and no acute distress Other: Elderly female pt lying supine at this time in no acute distress. HENMT: Face/Nose/Sinus: Normal nares present Eyes: General: appearance normal, both eyes and all related structures Neck: Neck: supple and no JVD Lymphatic: lymphadenopathy not noted Resp: Effort & Inspection: normal respiratory effort Auscultation: rhonchi (Coarse rhonchi bilaterally ) Cardio: Rate: regular rate Rhythm: regular rhythm Heart sounds: no gallops, no murmurs and no rubs GI: GI Palp: Yes Soft to palpation and Yes Tenderness to palpation present (GI) (diffuse) Auscultation: normal bowel sounds Skin: General skin exam: normal color, no rashes or lesions noted and no erythema Wounds: no wounds Neuro: Speech: normal speech Motor exam (neuro): Abnormal motor strength present (Generalized, non-focal weakness) Sensory Exam: No normal sensation (PN of BLE ) Extrem: General: normal to inspection, no edema and no pedal edema Psych: Mental Status: mental status grossly normal Affect: normal affect H&P: Results Labs Labs: Short CBC 07/02/25 Range/Units 21:40 WBC 15.7 H (4.5-10.0) K/mm3 Hgb 13.1 D (12.0-15.0) g/dL Hct 39.8 (37.0-47.0) % Plt Count 220 (150-375) k/mm3 BMP 07/02/25 21:40 Sodium 139 Potassium 3.5 Chloride 107 Carbon Dioxide 22 BUN 26 H D Creatinine 0.80 Glucose 149 H Calcium 10.1 Cardiac Enzymes 07/02/25 Range/Units 21:40 Total Creatine Kinase 554 H (30-135) U/L Liver Function 07/02/25 Range/Units 21:40 Total Bilirubin 0.6 (0.2-1.3) mg/dL AST 48 H (14-36) U/L ALT 33 (6-35) U/L Alkaline Phosphatase 90 (38-126) U/L Albumin 4.0 (3.5-5.1) g/dL Urine 07/03/25 Range/Units 01:40 Urine Color Dark yellow (Yellow) Urine Appearance Cloudy H (Clear) Urine pH 6.0 (5.0-9.0) Ur Specific [place] 1.029 (1.001-1.035) Urine Protein 1+ H (Negative) mg/dL Urine Glucose (UA) Negative (Negative) mg/dL Assessment and Plan Assessment and plan (1) Rhabdomyolysis: Code(s): M62.82 - Rhabdomyolysis Status: Acute Assessment and Plan: * Secondary to Dehydration and laying on floor for extended period of time. * Trend CK levels. * Pt is unaware of what caused her to lay on the floor, only knows that she was weak. She does not remember any prodromal symptoms, but will do ECHO and MRI Brain and Carotid Dopplers to ensure no Neurological cause. * Hydrate with NS at 100 ml/hr. * Monitor and trend daily labs and VS. (2) Chronic obstructive pulmonary disease: Code(s): J44.9 - Chronic obstructive pulmonary disease, unspecified Status: Chronic Assessment and Plan: * Duoneb Q6 hrs * PRN Albuterol Q4hrs Dyspnea/SOB. * Supplemental Oxygen * Monitor sats and wean as appropriate (3) Aspiration pneumonitis: Code(s): J69.0 - Pneumonitis due to inhalation of food and vomit Status: Acute Assessment and Plan: * Not meeting Sepsis criteria * Zosyn Q6 hrs * Continue Duonebs and Albuterol * Supplemental oxygen * Trend labs and VS. * Wean oxygen as able to. (4) Hypoxemia requiring supplemental oxygen: Code(s): R09.02 - Hypoxemia; Z99.81 - Dependence on supplemental oxygen Status: Acute Assessment and Plan: * See #2 and 3. (5) Colitis: Code(s): K52.9 - Noninfective gastroenteritis and colitis, unspecified Status: Acute Assessment and Plan: * Continue Zosyn and Flagyl * As evidenced by CT Scan abd and pelvis and independently reviewed by this provider. * Consult GI in the setting of pt's hx of colon cancer with no surveillance in the past 6 years. (6) Urinary tract infection: Code(s): N39.0 - Urinary tract infection, site not specified Status: Acute Assessment and Plan: * Continue Zosyn * Urine culture is pending. (7) Other abnormalities of gait and mobility: Code(s): R26.89 - Other abnormalities of gait and mobility Status: Acute Assessment and Plan: * Fall Precautions * PT/OT consult and treat (8) History of colon cancer: Code(s): Z85.038 - Personal history of other malignant neoplasm of large intestine Status: Chronic Assessment and Plan: * Last chemo was in 2019, her cancer was mets from the Ovaries. * Consult GI as pt now has acute Colitis. (9) Tobacco dependence: Code(s): F17.200 - Nicotine dependence, unspecified, uncomplicated Status: Chronic Assessment and Plan: * Nicotine patch (10) Hyperlipidemia: Code(s): E78.5 - Hyperlipidemia, unspecified Status: Acute Assessment and Plan: * Continue Statin therapy. (11) Gastroesophageal reflux disease: Code(s): K21.9 - Gastro-esophageal reflux disease without esophagitis Status: Chronic Assessment and Plan: * Continue PPI therapy with Omeprazole. Quality VTE Prophylaxis VTE prophylaxis: mechanical ordered Hospitalist MIPS Advance Care Plan I have confirmed that the patient's Advanced Care Plan is present, code status is documented, or surrogate decision maker is listed in patient medical record.: Yes Medication Reconciliation I have utilized all available resources to obtain, update and review the patients current medications (includes all prescriptions, OTC, herbals, cannabis, and nutritional supplements).: Yes
[2025-07-03] MEDS: PANTOPRAZOLE 40 MG TABLET PO (10:43)
[2025-07-03] MEDS: ROSUVASTATIN 5 MG TABLET PO (10:43)
[2025-07-03] MEDS: BENZONATATE 100 MG CAPSULE 200 MG PO ×2 (11:34→16:44)
[2025-07-03] MEDS: NICOTINE (*PBKC) 21 MG PATCH 1 PATCH TRANSDERM (11:34)
[2025-07-03] MEDS: SODIUM CHLORIDE 0.9% IV 1,000 ML 100 ML IV CONT ×2 (11:34→22:26)
[2025-07-03] MEDS: PIPERACILLIN/TAZOBACTAM SOD 4.5 GM in SODIUM CHLORIDE 0.9% IV 100 ML 200 ML IVPB ×2 (11:34→18:45)
--- NOTE | 2025-07-03 12:02 | P.CONGI_ITS ---
Assessment and Plan Assessment and plan (1) Nausea & vomiting: Code(s): R11.2 - Nausea with vomiting, unspecified Status: Acute Assessment and Plan: The patient's history of metastatic ovarian cancer with colonic involvement may partially explain the CT findings. Clinically, however, there is no evidence of colitis as she has no diarrhea. In fact, she is constipated, possibly due to her as-needed morphine use. Therefore, I recommend administering MiraLax for constipation relief. Currently, the patient is hypotensive, requiring fluid boluses. She was admitted for a urinary tract infection, and a chest x-ray suggests possible aspiration pneumonia secondary to her vomiting episodes. Her lab work shows a marked leukocytosis. Given her current acute medical issues, an urgent colonoscopy is not a priority. Once her condition stabilizes, with improved blood pressure and a resolution of the leukocytosis, we can re-evaluate and consider an elective colonoscopy. Additionally, an oncology consultation is recommended to assess the status of her known ovarian cancer. GI Consult Note Consult date/time: 07/03/25 12:02 Reason for consult: Colitis HPI: Myriam Martinez is a 70-year-old female with a history of metastatic ovarian cancer. 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 She was brought to the emergency room after a fall. Evaluation revealed multiple medical issues, including community-acquired pneumonia and a urinary tract infection, for which she is receiving broad- spectrum antibiotics. She also reported episodes of nausea and vomiting. A CT scan showed a thickened left colon consistent with colitis. The patient states her last bowel movement was solid and occurred three days ago, with no history of diarrhea. Review of Systems 2 Review of Systems: All systems reviewed & are unremarkable except as noted in HPI and below PMFSH Past Medical History Medical History (Updated 07/03/25 @ 11:12 by SEBASTIÁN Mendoza) Hyperlipidemia Other abnormalities of gait and mobility Urinary tract infection History of colon cancer Colitis Tobacco dependence Peripheral neuropathy due to chemotherapy Degenerative disc disease Gastroesophageal reflux disease Hypertension Chronic obstructive pulmonary disease Hepatitis C Treated in 2007. Ovarian cancer Skin cancer Anemia Anxiety Depression Arthritis Asthma Emphysema of lung Surgical History Surgical History History of laminectomy History of repair of right rotator cuff History of open reduction and internal fixation (ORIF) procedure Ankle fracture. History of tonsillectomy History of appendectomy History of hysterectomy History of lumpectomy of left breast Family History Family History Mother Family history of malignant neoplasm Family history of heart disease in male family member before age 55 Sibling Family history of malignant neoplasm of brain Father Family history of emphysema Social History Social History Social History: Surrogate decision maker: Sai Martinez, fransico. Code status: Full code. Smoking packs per day: 1 Smoking cigarettes per day: 20.0 Years smoked: 55 Smoking pack-years: 55.00 Smoking status: Current every day smoker Second hand tobacco smoke exposure: No Additional smoking assessment comments: Down to 3-5 cigarettes/day. last was on Monday06/30/25. Alcohol intake: former Alcohol use details: Drinks socially and in moderation. Substance use: unknown Substance use type: marijuana and painkillers Other substance usage details: Uses a few times a week. Lack of Transportation: No Lack of Food: Never True Current Housing: I Have Housing Concerned About Future Housing: No Difficulty Paying Gas/Electric Bills: No Difficulty Paying for Meds: No Currently Unemployed: No Education: High School Diploma/GED Difficulty w/ Childcare or Family Care: No Living arrangements: alone Additional living arrangements comments: The patient lives in a senior apartment in [place]. Additional occupation/education comments: Retired. Spiritual care concerns: No Meds Home Medications and Allergies Home Medications ?Medication ?Instructions ?Recorded ?Confirmed ?Type omeprazole 20 mg capsule,delayed 20 mg PO DAILY 06/10/21 07/03/25 History release rosuvastatin 5 mg tablet 5 mg PO DAILY 06/10/21 07/03/25 History trazodone 50 mg tablet 100 mg PO HS 06/10/21 07/03/25 History albuterol sulfate 90 mcg/actuation 2 puff inhalation Q4-6H PRN 01/05/24 07/03/25 Rx aerosol inhaler shortness of breath or wheezing 30 days #8.5 grams OLAZAPINE 20 mg BYMOUTH DAILY 01/17/25 07/03/25 History Allergies Allergy/AdvReac Type Severity Reaction Status Date / Time ciprofloxacin Allergy Unknown Rash Verified 01/05/24 09:35 Vital Signs Vital Signs - 24 hr 07/02/25 19:48 07/03/25 01:41 07/03/25 03:55 Temperature 97.0 F L Pulse Rate 108 H 94 101 H Respiratory Rate 19 18 22 H Blood Pressure 104/67 121/85 117/74 Pulse Oximetry 95 94 90 Oxygen Delivery Room Air Room Air Oxygen Flow Rate 07/03/25 04:01 07/03/25 04:15 07/03/25 04:16 Temperature Pulse Rate 91 86 Respiratory Rate 19 14 Blood Pressure 109/63 100/62 Pulse Oximetry 87 L 82 L 87 L Oxygen Delivery Room Air Oxygen Flow Rate 07/03/25 04:20 07/03/25 04:30 07/03/25 04:46 Temperature Pulse Rate 83 82 Respiratory Rate 17 13 Blood Pressure 106/73 100/71 Pulse Oximetry 96 99 99 Oxygen Delivery Nasal Cannula Oxygen Flow Rate 2 07/03/25 05:00 07/03/25 05:16 07/03/25 05:31 Temperature Pulse Rate 82 81 79 Respiratory Rate 21 H 21 H 21 H Blood Pressure 111/75 112/74 114/79 Pulse Oximetry 99 99 Oxygen Delivery Oxygen Flow Rate 07/03/25 05:46 07/03/25 06:00 07/03/25 06:16 Temperature Pulse Rate 77 89 69 Respiratory Rate 13 23 H 16 Blood Pressure 101/77 140/75 118/79 Pulse Oximetry 97 98 95 Oxygen Delivery Oxygen Flow Rate 07/03/25 06:31 07/03/25 08:10 07/03/25 09:00 Temperature 97.8 F Pulse Rate 81 85 93 Respiratory Rate 12 12 17 Blood Pressure 106/72 100/69 102/67 Pulse Oximetry 96 96 97 Oxygen Delivery Oxygen Flow Rate 07/03/25 09:30 Temperature Pulse Rate Respiratory Rate Blood Pressure Pulse Oximetry 97 Oxygen Delivery Nasal Cannula Oxygen Flow Rate 2 Exam 2 Narrative: Alert and awake, oriented x3. No acute distress. Abdomen: Soft, nontender, nondistended, no hepatosplenomegaly, no masses. Results Labs 07/02/25 21:40 07/02/25 21:40 Labs: Short CBC 07/02/25 Range/Units 21:40 WBC 15.7 H (4.5-10.0) K/mm3 Hgb 13.1 D (12.0-15.0) g/dL Hct 39.8 (37.0-47.0) % Plt Count 220 (150-375) k/mm3 BMP 07/02/25 21:40 Sodium 139 Potassium 3.5 Chloride 107 Carbon Dioxide 22 BUN 26 H D Creatinine 0.80 Glucose 149 H Calcium 10.1 Cardiac Enzymes 07/02/25 Range/Units 21:40 Total Creatine Kinase 554 H (30-135) U/L Liver Function 07/02/25 Range/Units 21:40 Total Bilirubin 0.6 (0.2-1.3) mg/dL AST 48 H (14-36) U/L ALT 33 (6-35) U/L Alkaline Phosphatase 90 (38-126) U/L Albumin 4.0 (3.5-5.1) g/dL Urine 07/03/25 Range/Units 01:40 Urine Color Dark yellow (Yellow) Urine Appearance Cloudy H (Clear) Urine pH 6.0 (5.0-9.0) Ur Specific [place] 1.029 (1.001-1.035) Urine Protein 1+ H (Negative) mg/dL Urine Glucose (UA) Negative (Negative) mg/dL
[2025-07-03] MEDS: IPRATROPIUM 0.5 MG/ALBUTEROL SULFATE 2.5 MG AMPUL.NEB 3 ML INHALATION ×2 (14:09→20:34)
[2025-07-03] MEDS: SODIUM CHLORIDE 0.9% IV 1,000 ML 999 ML IV CONT (15:25)
[2025-07-04] VITALS (16 sets, daily range): BP systolic 92–129; BP diastolic 64–81; PULSE 73–104; RESP 16–20; TEMP 36.2–36.6; O2SAT 92–100; BMI 26.4
[2025-07-04] MEDS: PIPERACILLIN/TAZOBACTAM SOD 4.5 GM in SODIUM CHLORIDE 0.9% IV 100 ML 200 ML IVPB ×4 (00:19→17:36)
[2025-07-04] MEDS: metroNIDAZOLE 500 MG/ISO 100ML 500 MG/100 ML BAG 100 MG IVPB ×3 (06:20→21:47)
[2025-07-04 06:54] LABS: Hematocrit 29.5 % (37.0-47.0); Hemoglobin 9.5 g/dL (12.0-15.0); Immature Granulocyte Percent A 3.3 % (0-0.5); Lymphocytes Absolute Auto 2.07 K/mm3 (0.9-3.2); Mean Corpuscular HGB Conc 32.2 g/dl (32-36); Mean Corpuscular Hemoglobin 30.4 pg (26-34); Mean Corpuscular Volume 94.6 fl (80-100); Nucleated Red Blood Cells Absolute Auto 0.000 K/mm3 (0.0-0.012); Nucleated Red Blood Cells Perc 0.0 % (0.0-0.2); Platelet Count Result 146 k/mm3 (150-375); Red Blood Count 3.12 M/mm3 (4.2-5.4); White Blood Count 10.6 K/mm3 (4.5-10.0)
[2025-07-04 07:15] LABS: Alanine Aminotransferase 23 U/L (6-35); Albumin Level 2.7 g/dL (3.5-5.1); Alkaline Phosphatase 65 U/L (38-126); Anion Gap 3 mmol/L (4-12); Aspartate Amino Transferase 35 U/L (14-36); Bilirubin,Total 0.5 mg/dL (0.2-1.3); Blood Urea Nitrogen 9 mg/dL (7-17); Calcium 8.6 mg/dL (8.4-10.2); Carbon Dioxide 22 mmol/L (22-30); Chloride 116 mmol/L (98-107); Creatine Kinase 175 U/L (30-135); Estimated CRCL calculation 53 ml/min; Estimated Glomerular Filt Rate > 60; Glucose 94 mg/dL (65-110); Magnesium 1.5 mg/dL (1.6-2.3); Potassium 3.3 mmol/L (3.4-5.0); Sodium 141 mmol/L (137-145); Total Protein 5.3 g/dL (6.3-8.2)
--- NOTE | 2025-07-04 07:20 | WPDGIPROGNO ---
Progress Note: A&P Assessment and Plan (1) History of ovarian cancer: Code(s): Z85.43 - Personal history of malignant neoplasm of ovary Status: Acute Assessment and Plan: The patient was admitted with hypotension and a fall attributed to severe peripheral neuropathy, a side effect of prior chemotherapy for her stage IV ovarian cancer. She reports that the cancer, which she says involved a portion of her colonic wall, was treated with radical surgery, chemotherapy, and radiation. She has not been followed by an oncologist since 2019. Currently, she is being treated for a urinary tract infection and aspiration pneumonia that occurred on the day of admission. A CT scan showed a left-sided colitis, but it has no clinical correlation with her current symptoms, as she has no diarrhea or rectal bleeding. This finding may represent residual metastatic disease. I recommend an oncology evaluation to obtain her old records and assess the need for restaging her ovarian cancer. A colonoscopy would not be helpful at this time due to her acute issues and the likelihood that any recurrent ovarian cancer would be intraperitoneal and not visible intraluminally. If after oncologic evaluation a colonoscopy is deemed necessary will schedule it, however her bowel regimen needs to be optimized before attempting a standard prep. For that purpose will increase her Miralax dose frequency to qiD. Plan - Oncology evaluation - Increase Miralax to 17 g q 6 hours Subjective Date/time seen: 07/04/25 07:20 Interval history: The patient did not have any bowel movements despite MiraLax administered 3 times a day yesterday. There are no new complaints. Hemodynamically stable. Exam Narrative: Abdomen: Soft, nontender, nondistended. Rest of exam within normal limits. Objective Data Vital Signs Vital Signs: Vital Signs - 24 hr 07/03/25 08:10 07/03/25 09:00 07/03/25 09:30 Temperature 97.8 F Pulse Rate 85 93 Respiratory Rate 12 17 Blood Pressure 100/69 102/67 Pulse Oximetry 96 97 97 Oxygen Delivery Nasal Cannula Oxygen Flow Rate 2 07/03/25 12:00 07/03/25 14:07 07/03/25 14:09 Temperature Pulse Rate 92 82 Respiratory Rate 16 Blood Pressure Pulse Oximetry 94 Oxygen Delivery Nasal Cannula Oxygen Flow Rate 1 07/03/25 14:12 07/03/25 15:05 07/03/25 16:00 Temperature 97.0 F L Pulse Rate 82 81 70 Respiratory Rate 16 17 Blood Pressure 92/42 L Pulse Oximetry 96 Oxygen Delivery Oxygen Flow Rate 07/03/25 16:50 07/03/25 17:30 07/03/25 20:00 Temperature Pulse Rate 93 Respiratory Rate Blood Pressure 100/44 L 106/60 Pulse Oximetry Oxygen Delivery Oxygen Flow Rate 07/03/25 20:34 07/03/25 20:34 07/03/25 20:40 Temperature Pulse Rate 73 86 Respiratory Rate 14 14 Blood Pressure Pulse Oximetry 94 Oxygen Delivery Nasal Cannula Oxygen Flow Rate 1 07/03/25 21:28 07/04/25 00:00 07/04/25 00:15 Temperature 97.5 F L 97.1 F L Pulse Rate 97 79 79 Respiratory Rate 18 16 Blood Pressure 92/58 L 92/64 L Pulse Oximetry 92 95 Oxygen Delivery Oxygen Flow Rate 07/04/25 04:00 07/04/25 05:17 Temperature 97.5 F L Pulse Rate 73 98 Respiratory Rate 20 Blood Pressure 113/70 Pulse Oximetry 92 Oxygen Delivery Oxygen Flow Rate Intake/Output Intake/Output: Intake & Output 07/01/25 07/02/25 07/03/25 07/04/25 23:59 23:59 23:59 23:59 Intake Total 4930 350 Balance 4930 350 Meds/Results Medications: Active Medications Generic Name Dose Route Start Last Admin Trade Name Carlosq PRN Reason Stop Dose Admin Acetaminophen 650 mg 07/03/25 04:58 Acetaminophen 325 Mg Tablet PO Q4H PRN Mild Pain (1-3) or Fever Albuterol 2.5 mg 07/03/25 10:26 Albuterol Sulfate Neb 2.5 Mg/3 Ml Inh INHALATION Q4HRT PRN Shortness Of Breath Albuterol/Ipratropium 3 ml 07/03/25 14:00 07/03/25 20:34 Ipratropium 0.5 Mg/Albuterol Sulfate 2.5 Mg Ampul.Neb 3 Ml INHALATION 3 ml Q6HRT JACK Administration Benzonatate 200 mg 07/03/25 13:00 07/03/25 16:44 Benzonatate 100 Mg Capsule PO 200 mg TID JACK Administration Sodium Chloride 1,000 mls @ 100 mls/hr 07/03/25 11:05 07/03/25 22:26 Normal Saline Iv IV CONT 100 mls/hr .Q10H JACK Administration Piperacillin Sod/Tazobactam 100 mls @ 200 mls/hr 07/03/25 12:00 07/04/25 06:17 Sod 4.5 gm/ Sodium Chloride IVPB 200 mls/hr Q6HR JACK Administration Metronidazole 500 mg in 100 mls @ 100 mls/hr 07/03/25 14:00 07/04/25 06:20 Flagyl 500 Mg/Iso Soln 100 Ml IVPB 100 mls/hr Q8H JACK Administration Morphine Sulfate 2 mg 07/03/25 04:58 07/03/25 18:47 Morphine Sulfate (*Crx) 2 Mg/Ml Inj IV PUSH 2 mg Q2H PRN Administration Pain Rated 7-10 Nicotine 1 patch 07/03/25 11:20 07/03/25 11:34 Nicotine (*Pbkc) 21 Mg Patch TRANSDERM 1 patch DAILY JACK Administration Ondansetron HCl 4 mg 07/03/25 04:58 Ondansetron Inj 4 Mg/2 Ml Vial IV PUSH Q4H PRN Nausea Pantoprazole Sodium 40 mg 07/03/25 10:30 07/03/25 10:43 Pantoprazole 40 Mg Tablet PO 08/03/25 10:29 40 mg DAILY JACK Administration Perflutren Lipid Microsphere 0 ml 07/03/25 11:01 Perflutren Lipid Microspheres 1.5 Ml Vial Diluted To 10 Ml Total Volume IV PUSH 07/06/25 11:02 ONCE PRN adequate visualization Protocol Polyethylene Glycol 17 gm 07/03/25 16:00 07/04/25 00:23 Polyethylene Glycol 3350 17 Gm Powd.Pack PO Not Given Q8H JACK Rosuvastatin Calcium 5 mg 07/03/25 10:30 07/03/25 10:43 Rosuvastatin 5 Mg Tablet PO 5 mg DAILY JACK Administration Trazodone HCl 100 mg 07/03/25 21:00 07/03/25 22:26 Trazodone Hcl 50 Mg Tablet PO 100 mg HS JACK Administration Radiology Results: ITS Impressions Abdomen/Pelvis CT 07/03/25 06:11 IMPRESSION: 1. Abnormally thickened left colon consistent with colitis, most likely infectious/inflammatory. 2: Patchy reticulonodular densities left lower lobe with associated 7 mm nodule, most likely infectious/inflammatory. Recommend follow-up CT in 3 months to assess for resolution. Head CT 07/03/25 07:00 IMPRESSION: 1. No acute intracranial abnormality. 2: Chronic right lacunar infarction. 3: Mild sinus disease. Labs Labs: Laboratory Results - last 24 hr 07/04/25 06:40 WBC 10.6 H RBC 3.12 L Hgb 9.5 L D Hct 29.5 L MCV 94.6 MCH 30.4 MCHC 32.2 RDW 15.0 H Plt Count 146 L MPV 10.2 Immature Gran % (Auto) 3.3 H Neut % (Auto) 66.6 Lymph % (Auto) 19.5 Cavalier % (Auto) 8.9 H Eos % (Auto) 1.0 Baso % (Auto) 0.7 Lymph # (Auto) 2.07 Cavalier # (Auto) 0.9 H Eos # (Auto) 0.1 Baso # (Auto) 0.1 Abs Immat Gran (auto) 0.35 H Absolute Neuts (auto) 7.1 H Absolute Nucleated RBC 0.000 Nucleated RBC % 0.0 Sodium 141 Potassium 3.3 L Chloride 116 H Carbon Dioxide 22 Anion Gap 3 L BUN 9 D Creatinine 0.71 Estim Creat Clear Calc 53 Estimated GFR > 60 Glucose 94 Calcium 8.6 Magnesium 1.5 L Total Bilirubin 0.5 AST 35 ALT 23 Alkaline Phosphatase 65 Total Creatine Kinase 175 H Total Protein 5.3 L Albumin 2.7 L
[2025-07-04] MEDS: IPRATROPIUM 0.5 MG/ALBUTEROL SULFATE 2.5 MG AMPUL.NEB 3 ML INHALATION ×3 (08:20→22:11)
--- NOTE | 2025-07-04 08:52 | P.CDI_ITS ---
CDI Query Clarification Request 1)Please specify status of COPD, if known. * Exacerbation of COPD * No exacerbation/stable COPD * Other * Unable to determine 2) Please clarify type of rhabdomyolysis if known: ? Traumatic or muscle compression (e.g., crush syndrome or prolonged immobilization) ? Non-traumatic exertional (e.g., marked exertion in untrained individuals, hyperthermia, or metabolic myopathies) ? Non-traumatic no exertional (e.g., drugs or toxins, infections, or electrolyte disorders) 3) Please review the clinical information below and clarify the respiratory diagnosis the patient is being treated for: * Hypoxia or hypoxemia without respiratory failure * Respiratory distress without respiratory failure * Acute respiratory failure with hypoxia * Acute respiratory failure with hypercapnia * Acute respiratory failure with hypoxia and hypercapnia * Acute on chronic respiratory failure with hypoxia * Acute on chronic respiratory failure with hypercapnia * Acute on chronic respiratory failure with hypoxia and hypercapnia * Acute respiratory distress syndrome (ARDS) * Chronic respiratory failure with hypoxia * Chronic respiratory failure with hypercapnia * Chronic respiratory failure with hypoxia and hypercapnia * Other explanation clinical findings, please specify * Unable to determine Assessment and plan (1) Rhabdomyolysis: Code(s): M62.82 - Rhabdomyolysis Status: Acute Assessment and Plan: * Secondary to Dehydration and laying on floor for extended period of time. * Trend CK levels. * Pt is unaware of what caused her to lay on the floor, only knows that she was weak. She does not remember any prodromal symptoms, but will do ECHO and MRI Brain and Carotid Dopplers to ensure no Neurological cause. * Hydrate with NS at 100 ml/hr. * Monitor and trend daily labs and VS.(2) Chronic obstructive pulmonary disease: Code(s): J44.9 - Chronic obstructive pulmonary disease, unspecified Status: Chronic Assessment and Plan: * Duoneb Q6 hrs * PRN Albuterol Q4hrs Dyspnea/SOB. * Supplemental Oxygen * Monitor sats and wean as appropriate(3) Aspiration pneumonitis: Code(s): J69.0 - Pneumonitis due to inhalation of food and vomit Status: Acute Assessment and Plan: * Not meeting Sepsis criteria * Zosyn Q6 hrs * Continue Duonebs and Albuterol * Supplemental oxygen * Trend labs and VS. * Wean oxygen as able to.(4) Hypoxemia requiring supplemental oxygen: Code(s): R09.02 - Hypoxemia; Z99.81 - Dependence on supplemental oxygen Status: Acute Assessment and Plan: * See #2 and 3.(5) Colitis: Code(s): K52.9 - Noninfective gastroenteritis and colitis, unspecified Status: Acute Assessment and Plan: * Continue Zosyn and Flagyl * As evidenced by CT Scan abd and pelvis and independently reviewed by this provider. * Consult GI in the setting of pt's hx of colon cancer with no surveillance in the past 6 years. n the ER workup was performed and CT scan of brain is without any acute intracranial abnormalities, and CT scan A/P shows that she has a left sided PNA, as well as thickening of the sousa of hte colon compatible with acute left sided colitis. She was initiated on abx of Rocephin, Zosyn and Azithromycin. After returning from CT Scan she had an episode where she was found to be extremely hypoxic and it was suspected that she aspirated at that time. She is requiring supplemental oxygenation now for her breathing. Labs showing Leukocytosis at 15.7 with elevated Neuts, Cr normal and BUN slightly high at 26 indicating a degree of deyhdration, Lactic acid of 1.4, and Elevated CPK at 554 as a result of her laying on the floor for a prolonged period of time. Her Urine is indicative of a likely UTI as well with 3+ Leuk Esterase and >100 WBCs. Pt is admitted to the hospital in the current setting for continued management.
--- NOTE | 2025-07-04 08:52 | WPDCDIQUERY2 ---
CDI Query Clarification Request 1)Please specify status of COPD, if known. Exacerbation of COPD No exacerbation/stable COPD Other Unable to determine 2) Please clarify type of rhabdomyolysis if known: ? Traumatic or muscle compression (e.g., crush syndrome or prolonged immobilization) ? Non-traumatic exertional (e.g., marked exertion in untrained individuals, hyperthermia, or metabolic myopathies) ? Non-traumatic no exertional (e.g., drugs or toxins, infections, or electrolyte disorders) 3) Please review the clinical information below and clarify the respiratory diagnosis the patient is being treated for: Hypoxia or hypoxemia without respiratory failure Respiratory distress without respiratory failure Acute respiratory failure with hypoxia Acute respiratory failure with hypercapnia Acute respiratory failure with hypoxia and hypercapnia Acute on chronic respiratory failure with hypoxia Acute on chronic respiratory failure with hypercapnia Acute on chronic respiratory failure with hypoxia and hypercapnia Acute respiratory distress syndrome (ARDS) Chronic respiratory failure with hypoxia Chronic respiratory failure with hypercapnia Chronic respiratory failure with hypoxia and hypercapnia Other explanation clinical findings, please specify Unable to determine Assessment and plan (1) Rhabdomyolysis: Code(s): M62.82 - Rhabdomyolysis Status: Acute Assessment and Plan: Secondary to Dehydration and laying on floor for extended period of time. Trend CK levels. Pt is unaware of what caused her to lay on the floor, only knows that she was weak. She does not remember any prodromal symptoms, but will do ECHO and MRI Brain and Carotid Dopplers to ensure no Neurological cause. Hydrate with NS at 100 ml/hr. Monitor and trend daily labs and VS.(2) Chronic obstructive pulmonary disease: Code(s): J44.9 - Chronic obstructive pulmonary disease, unspecified Status: Chronic Assessment and Plan: Duoneb Q6 hrs PRN Albuterol Q4hrs Dyspnea/SOB. Supplemental Oxygen Monitor sats and wean as appropriate(3) Aspiration pneumonitis: Code(s): J69.0 - Pneumonitis due to inhalation of food and vomit Status: Acute Assessment and Plan: Not meeting Sepsis criteria Zosyn Q6 hrs Continue Duonebs and Albuterol Supplemental oxygen Trend labs and VS. Wean oxygen as able to.(4) Hypoxemia requiring supplemental oxygen: Code(s): R09.02 - Hypoxemia; Z99.81 - Dependence on supplemental oxygen Status: Acute Assessment and Plan: See #2 and 3.(5) Colitis: Code(s): K52.9 - Noninfective gastroenteritis and colitis, unspecified Status: Acute Assessment and Plan: Continue Zosyn and Flagyl As evidenced by CT Scan abd and pelvis and independently reviewed by this provider. Consult GI in the setting of pt's hx of colon cancer with no surveillance in the past 6 years. n the ER workup was performed and CT scan of brain is without any acute intracranial abnormalities, and CT scan A/P shows that she has a left sided PNA, as well as thickening of the sousa of hte colon compatible with acute left sided colitis. She was initiated on abx of Rocephin, Zosyn and Azithromycin. After returning from CT Scan she had an episode where she was found to be extremely hypoxic and it was suspected that she aspirated at that time. She is requiring supplemental oxygenation now for her breathing. Labs showing Leukocytosis at 15.7 with elevated Neuts, Cr normal and BUN slightly high at 26 indicating a degree of deyhdration, Lactic acid of 1.4, and Elevated CPK at 554 as a result of her laying on the floor for a prolonged period of time. Her Urine is indicative of a likely UTI as well with 3+ Leuk Esterase and >100 WBCs. Pt is admitted to the hospital in the current setting for continued management.
[2025-07-04] MEDS: ROSUVASTATIN 5 MG TABLET PO (08:59)
[2025-07-04] MEDS: PANTOPRAZOLE 40 MG TABLET PO (08:59)
[2025-07-04] MEDS: BENZONATATE 100 MG CAPSULE 200 MG PO ×3 (08:59→21:49)
[2025-07-04] MEDS: NICOTINE (*PBKC) 21 MG PATCH 1 PATCH TRANSDERM (08:59)
[2025-07-04] MEDS: LORazepam (*CRX) 0.5 MG TABLET PO ×2 (11:29→21:48)
[2025-07-04] MEDS: MAGNESIUM OXIDE 400 MG TABLET PO (13:44)
[2025-07-04] MEDS: POTASSIUM CHLORIDE 20 MEQ PACKET (FOR LIQUID) 40 MEQ PO (13:45)
--- NOTE | 2025-07-04 16:00 | WPDONCCN ---
Assessment and Plan Assessment and plan (1) History of ovarian cancer: Code(s): Z85.43 - Personal history of malignant neoplasm of ovary Status: Acute Assessment and Plan: Patient was diagnosed with Storz 4 colon cancer in 2016 is status post complete hysterectomy and BSO. Patient subsequently had a local relapse in the colon and was treated with chemotherapy and radiation therapy treatment in 2019. She was last seen by the community living instructor oncologist at [facility] in 2019. She developed constipation and for which she was taking MiraLax and subsequently developed nausea vomiting and diarrhea. CT scan showed left-sided pneumonia as well as thickening of the wall of the colon could be secondary to colitis. There was also 7 mm left lower lobe lung nodule. There was no significant lymphadenopathy. I will order CA 125. PET scan can be done as an outpatient to have complete staging. She would need endoscopy evaluation for her initial constipation with previous history of colon relapse for ovarian cancer. This can be performed as an outpatient patient remains asymptomatic while in the hospital. If diarrhea or constipation persists and I would suggest getting a colonoscopy while she is in the hospital. I have answered all the questions to patient's satisfaction. Follow up as an outpatient. HPI Data of Consult Date/Time: 07/04/25 16:00 Requesting Physician: Joseph Baker MD Primary Care Provider: Salima Emerson, PA Consult Narrative Narrative: Myriam Martinez is a 70 year old female with history of stage IV ovarian cancer diagnosed in 2016 status post complete hysterectomy with BSO and then subsequent chemotherapy. Patient also received radiation therapy treatment for possible local relapse in the colon in 2019. Patient also has a history of GERD, hepatitis-C, anemia, COPD, hypertension and degenerative disc disease. 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 She was admitted to the hospital with complain of generalized weakness along with nausea vomiting and diarrhea. She was taking MiraLax for constipation and then subsequently developed diarrhea. She has lost 15 lb weight in last couple of months. CT abdomen and pelvis showed abnormal thickening of the left colon consistent with colitis with possible infection/inflammation along with 7 mm left lower lobe lung nodule. Brain MRI was performed due to weakness and syncopal episode that showed aging brain with chronic old infarction. No acute intracranial process. Patient was diagnosed with left-sided pneumonia and left-sided colitis and was started on antibiotics. Review of Systems Review of Systems: Twelve point review of system was reviewed [facility] Past Medical History Medical History (Updated 07/04/25 @ 07:22 by Teodoro Covarrubias MD) Hyperlipidemia Other abnormalities of gait and mobility Urinary tract infection Colitis Tobacco dependence Peripheral neuropathy due to chemotherapy Degenerative disc disease Gastroesophageal reflux disease Hypertension Chronic obstructive pulmonary disease Hepatitis C Treated in 2007. Ovarian cancer Skin cancer Anemia Anxiety Depression Arthritis Asthma Emphysema of lung Surgical History Surgical History History of laminectomy History of repair of right rotator cuff History of open reduction and internal fixation (ORIF) procedure Ankle fracture. History of tonsillectomy History of appendectomy History of hysterectomy History of lumpectomy of left breast Family History Family History Mother Family history of malignant neoplasm Family history of heart disease in male family member before age 55 Sibling Family history of malignant neoplasm of brain Father Family history of emphysema Social History Social History Social History: Surrogate decision maker: Sai Martinez, son. Code status: Full code. Smoking packs per day: 1 Smoking cigarettes per day: 20.0 Years smoked: 55 Smoking pack-years: 55.00 Smoking status: Current every day smoker Second hand tobacco smoke exposure: No Additional smoking assessment comments: Down to 3-5 cigarettes/day. last was on Monday06/30/25. Alcohol intake: former Alcohol use details: Drinks socially and in moderation. Substance use: unknown Substance use type: marijuana and painkillers Other substance usage details: Uses a few times a week. Lack of Transportation: No Lack of Food: Never True Current Housing: I Have Housing Concerned About Future Housing: No Difficulty Paying Gas/Electric Bills: No Difficulty Paying for Meds: No Currently Unemployed: No Education: High School Diploma/GED Difficulty w/ Childcare or Family Care: No Living arrangements: alone Additional living arrangements comments: The patient lives in a senior apartment in [place]. Additional occupation/education comments: Retired. Spiritual care concerns: No Meds Home Medications and Allergies Home Medications ?Medication ?Instructions ?Recorded ?Confirmed ?Type omeprazole 20 mg capsule,delayed 20 mg PO DAILY 06/10/21 07/03/25 History release rosuvastatin 5 mg tablet 5 mg PO DAILY 06/10/21 07/03/25 History trazodone 50 mg tablet 100 mg PO HS 06/10/21 07/03/25 History albuterol sulfate 90 mcg/actuation 2 puff inhalation Q4-6H PRN 01/05/24 07/03/25 Rx aerosol inhaler shortness of breath or wheezing 30 days #8.5 grams OLAZAPINE 20 mg BYMOUTH DAILY 01/17/25 07/03/25 History Allergies Allergy/AdvReac Type Severity Reaction Status Date / Time ciprofloxacin Allergy Unknown Rash Verified 01/05/24 09:35 Vital Signs Vital Signs - 24 hr 07/03/25 16:50 07/03/25 17:30 07/03/25 20:00 Temperature Pulse Rate 93 Respiratory Rate Blood Pressure 100/44 L 106/60 Pulse Oximetry Oxygen Delivery Oxygen Flow Rate 07/03/25 20:34 07/03/25 20:34 07/03/25 20:40 Temperature Pulse Rate 73 86 Respiratory Rate 14 14 Blood Pressure Pulse Oximetry 94 Oxygen Delivery Nasal Cannula Oxygen Flow Rate 1 07/03/25 21:28 07/04/25 00:00 07/04/25 00:15 Temperature 36.4 C L 36.2 C L Pulse Rate 97 79 79 Respiratory Rate 18 16 Blood Pressure 92/58 L 92/64 L Pulse Oximetry 92 95 Oxygen Delivery Oxygen Flow Rate 07/04/25 04:00 07/04/25 05:17 07/04/25 08:21 Temperature 36.4 C L Pulse Rate 73 98 Respiratory Rate 20 Blood Pressure 113/70 Pulse Oximetry 92 92 Oxygen Delivery Nasal Cannula Oxygen Flow Rate 2 07/04/25 08:21 07/04/25 08:30 07/04/25 13:47 Temperature Pulse Rate 104 H 84 Respiratory Rate 16 16 Blood Pressure Pulse Oximetry Oxygen Delivery Nasal Cannula Oxygen Flow Rate 2 07/04/25 13:56 07/04/25 14:00 07/04/25 14:20 Temperature 36.6 C Pulse Rate 95 94 Respiratory Rate 20 16 Blood Pressure 129/81 Pulse Oximetry 100 Oxygen Delivery Nasal Cannula Oxygen Flow Rate 2 07/04/25 14:30 Temperature Pulse Rate 100 Respiratory Rate 16 Blood Pressure Pulse Oximetry Oxygen Delivery Oxygen Flow Rate Exam Narrative: Lungs are clear to auscultation bilateral Cardiovascular regular rate rhythm no murmurs Abdomen soft nontender nondistended Extremities no edema Results Labs 07/04/25 06:40 07/04/25 06:40 Labs: Short CBC 07/04/25 Range/Units 06:40 WBC 10.6 H (4.5-10.0) K/mm3 Hgb 9.5 L D (12.0-15.0) g/dL Hct 29.5 L (37.0-47.0) % Plt Count 146 L (150-375) k/mm3 BMP 07/04/25 06:40 Sodium 141 Potassium 3.3 L Chloride 116 H Carbon Dioxide 22 BUN 9 D Creatinine 0.71 Glucose 94 Calcium 8.6 Cardiac Enzymes 07/04/25 Range/Units 06:40 Total Creatine Kinase 175 H (30-135) U/L Liver Function 07/04/25 Range/Units 06:40 Total Bilirubin 0.5 (0.2-1.3) mg/dL AST 35 (14-36) U/L ALT 23 (6-35) U/L Alkaline Phosphatase 65 (38-126) U/L Albumin 2.7 L (3.5-5.1) g/dL
--- NOTE | 2025-07-04 16:02 | P.PNIM_ITS ---
Progress Note: A&P Assessment and Plan (1) Rhabdomyolysis: Code(s): M62.82 - Rhabdomyolysis Status: Acute Assessment and Plan: * Secondary to Dehydration and laying on floor for extended period of time. * Trend CK levels. * Pt is unaware of what caused her to lay on the floor, only knows that she was weak. She does not remember any prodromal symptoms, but will do ECHO and MRI Brain and Carotid Dopplers to ensure no Neurological cause. * Hydrate with NS at 100 ml/hr. * Monitor and trend daily labs and VS. * ok to stop fluids if intake is adequate and ck downtrending (2) Chronic obstructive pulmonary disease: Code(s): J44.9 - Chronic obstructive pulmonary disease, unspecified Status: Chronic Assessment and Plan: * Duoneb Q6 hrs * PRN Albuterol Q4hrs Dyspnea/SOB. * Supplemental Oxygen * Monitor sats and wean as appropriate (3) Aspiration pneumonitis: Code(s): J69.0 - Pneumonitis due to inhalation of food and vomit Status: Acute Assessment and Plan: * Not meeting Sepsis criteria * Zosyn Q6 hrs * Continue Duonebs and Albuterol * Supplemental oxygen * Trend labs and VS. * Wean oxygen as able to. (4) Hypoxemia requiring supplemental oxygen: Code(s): R09.02 - Hypoxemia; Z99.81 - Dependence on supplemental oxygen Status: Acute Assessment and Plan: * See #2 and 3. (5) Colitis: Code(s): K52.9 - Noninfective gastroenteritis and colitis, unspecified Status: Acute Assessment and Plan: * Continue Zosyn and Flagyl * As evidenced by CT Scan abd and pelvis and independently reviewed by this provider. * Consult GI in the setting of pt's hx of colon cancer with no surveillance in the past 6 years. (6) Urinary tract infection: Code(s): N39.0 - Urinary tract infection, site not specified Status: Acute Assessment and Plan: * Continue Zosyn * Urine culture is pending. 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 * Consult GI as pt now has acute Colitis. (9) Tobacco dependence: Code(s): F17.200 - Nicotine dependence, unspecified, uncomplicated Status: Chronic Assessment and Plan: * Nicotine patch (10) Hyperlipidemia: Code(s): E78.5 - Hyperlipidemia, unspecified Status: Acute Assessment and Plan: * Continue Statin therapy. (11) Gastroesophageal reflux disease: Code(s): K21.9 - Gastro-esophageal reflux disease without esophagitis Status: Chronic Assessment and Plan: * Continue PPI therapy with Omeprazole. Time Spent With Patient Time with patient: 25 - 35 minutes Subjective Date/time seen: 07/04/25 16:02 Interval history: walking in a hallway. alert, pleasant. Review of Systems Review of Systems: All systems reviewed & are unremarkable except as noted in HPI and below Exam Const: General: comfortable and no acute distress Other: Elderly female pt lying supine at this time in no acute distress. HENMT: Face/Nose/Sinus: Normal nares present Eyes: General: appearance normal, both eyes and all related structures Neck: Neck: supple and no JVD Lymphatic: lymphadenopathy not noted Resp: Effort & Inspection: normal respiratory effort Auscultation: rhonchi (Coarse rhonchi bilaterally ) Cardio: Rate: regular rate Rhythm: regular rhythm Heart sounds: no gallops, no murmurs and no rubs GI: Auscultation: normal bowel sounds Skin: General skin exam: normal color, no rashes or lesions noted and no erythema Wounds: no wounds Neuro: Speech: normal speech Motor exam (neuro): Abnormal motor strength present (Generalized, non-focal weakness) Sensory Exam: No normal sensation (PN of BLE ) Extrem: General: normal to inspection, no edema and no pedal edema Psych: Mental Status: mental status grossly normal Affect: normal affect Objective Data Vital Signs Vital Signs: Vital Signs - 24 hr 07/03/25 16:50 07/03/25 17:30 07/03/25 20:00 Temperature Pulse Rate 93 Respiratory Rate Blood Pressure 100/44 L 106/60 Pulse Oximetry Oxygen Delivery Oxygen Flow Rate 07/03/25 20:34 07/03/25 20:34 07/03/25 20:40 Temperature Pulse Rate 73 86 Respiratory Rate 14 14 Blood Pressure Pulse Oximetry 94 Oxygen Delivery Nasal Cannula Oxygen Flow Rate 1 07/03/25 21:28 07/04/25 00:00 07/04/25 00:15 Temperature 97.5 F L 97.1 F L Pulse Rate 97 79 79 Respiratory Rate 18 16 Blood Pressure 92/58 L 92/64 L Pulse Oximetry 92 95 Oxygen Delivery Oxygen Flow Rate 07/04/25 04:00 07/04/25 05:17 07/04/25 08:21 Temperature 97.5 F L Pulse Rate 73 98 Respiratory Rate 20 Blood Pressure 113/70 Pulse Oximetry 92 92 Oxygen Delivery Nasal Cannula Oxygen Flow Rate 2 07/04/25 08:21 07/04/25 08:30 07/04/25 13:47 Temperature Pulse Rate 104 H 84 Respiratory Rate 16 16 Blood Pressure Pulse Oximetry Oxygen Delivery Nasal Cannula Oxygen Flow Rate 2 07/04/25 13:56 07/04/25 14:00 07/04/25 14:20 Temperature 97.8 F Pulse Rate 95 94 Respiratory Rate 20 16 Blood Pressure 129/81 Pulse Oximetry 100 Oxygen Delivery Nasal Cannula Oxygen Flow Rate 2 07/04/25 14:30 Temperature Pulse Rate 100 Respiratory Rate 16 Blood Pressure Pulse Oximetry Oxygen Delivery Oxygen Flow Rate Intake/Output Intake/Output: Intake & Output 07/01/25 07/02/25 07/03/25 07/04/25 23:59 23:59 23:59 23:59 Intake Total 4930 1030 Balance 4930 1030 Meds/Results Medications: Active Medications Generic Name Dose Route Start Last Admin Trade Name Freq PRN Reason Stop Dose Admin Acetaminophen 650 mg 07/03/25 04:58 Acetaminophen 325 Mg Tablet PO Q4H PRN Mild Pain (1-3) or Fever Albuterol 2.5 mg 07/03/25 10:26 Albuterol Sulfate Neb 2.5 Mg/3 Ml Inh INHALATION Q4HRT PRN Shortness Of Breath Albuterol/Ipratropium 3 ml 07/03/25 14:00 07/04/25 14:20 Ipratropium 0.5 Mg/Albuterol Sulfate 2.5 Mg Ampul.Neb 3 Ml INHALATION 3 ml Q6HRT JACK Administration Benzonatate 200 mg 07/04/25 15:00 07/04/25 15:21 Benzonatate 100 Mg Capsule PO 200 mg Q6H JACK Administration Sodium Chloride 1,000 mls @ 100 mls/hr 07/03/25 11:05 07/03/25 22:26 Normal Saline Iv IV CONT 100 mls/hr .Q10H JACK Administration Piperacillin Sod/Tazobactam 100 mls @ 200 mls/hr 07/03/25 12:00 07/04/25 13:45 Sod 4.5 gm/ Sodium Chloride IVPB 200 mls/hr Q6HR JACK Administration Metronidazole 500 mg in 100 mls @ 100 mls/hr 07/03/25 14:00 07/04/25 15:21 Flagyl 500 Mg/Iso Soln 100 Ml IVPB 100 mls/hr Q8H JACK Administration Lorazepam 0.5 mg 07/04/25 08:12 07/04/25 11:29 Lorazepam (*Crx) 0.5 Mg Tablet PO 0.5 mg Q6H PRN Administration Anxiety Magnesium Oxide 400 mg 07/04/25 10:40 07/04/25 13:44 Magnesium Oxide 400 Mg Tablet PO 400 mg DAILY JACK Administration Morphine Sulfate 2 mg 07/03/25 04:58 07/03/25 18:47 Morphine Sulfate (*Crx) 2 Mg/Ml Inj IV PUSH 2 mg Q2H PRN Administration Pain Rated 7-10 Nicotine 1 patch 07/03/25 11:20 07/04/25 08:59 Nicotine (*Pbkc) 21 Mg Patch TRANSDERM 1 patch DAILY JACK Administration Ondansetron HCl 4 mg 07/03/25 04:58 Ondansetron Inj 4 Mg/2 Ml Vial IV PUSH Q4H PRN Nausea Pantoprazole Sodium 40 mg 07/03/25 10:30 07/04/25 08:59 Pantoprazole 40 Mg Tablet PO 08/03/25 10:29 40 mg DAILY JACK Administration Perflutren Lipid Microsphere 0 ml 07/03/25 11:01 Perflutren Lipid Microspheres 1.5 Ml Vial Diluted To 10 Ml Total Volume IV PUSH 07/06/25 11:02 ONCE PRN adequate visualization Protocol Polyethylene Glycol 17 gm 07/04/25 08:00 07/04/25 13:47 Polyethylene Glycol 3350 17 Gm Powd.Pack PO 17 gm Q6H JACK Administration Potassium Chloride 40 meq 07/04/25 10:40 07/04/25 13:45 Potassium Chloride 20 Meq Packet (For Liquid) PO 40 meq DAILY JACK Administration Rosuvastatin Calcium 5 mg 08/14/25 10:30 07/04/25 08:59 Rosuvastatin 5 Mg Tablet PO 5 mg DAILY JACK Administration Trazodone HCl 100 mg 07/03/25 21:00 07/03/25 22:26 Trazodone Hcl 50 Mg Tablet PO 100 mg HS JACK Administration Radiology Results: ITS Impressions Abdomen/Pelvis CT 07/03/25 06:11 IMPRESSION: 1. Abnormally thickened left colon consistent with colitis, most likely infectious/inflammatory. 2: Patchy reticulonodular densities left lower lobe with associated 7 mm nodule, most likely infectious/inflammatory. Recommend follow-up CT in 3 months to assess for resolution. Head CT 07/03/25 07:00 IMPRESSION: 1. No acute intracranial abnormality. 2: Chronic right lacunar infarction. 3: Mild sinus disease. Carotid Doppler Study 07/04/25 11:50 IMPRESSION: 1. <50% stenosis in the right internal carotid artery. 2. <50% stenosis in the left internal carotid artery. Brain MRI 07/04/25 12:35 IMPRESSION: 1. Aging brain with chronic old lacunar infarct at the right caudate nucleus. No acute intracranial process or abnormally enhancing brain lesions. Labs Labs: Laboratory Results - last 24 hr 07/04/25 06:40 WBC 10.6 H RBC 3.12 L Hgb 9.5 L D Hct 29.5 L MCV 94.6 MCH 30.4 MCHC 32.2 RDW 15.0 H Plt Count 146 L MPV 10.2 Immature Gran % (Auto) 3.3 H Neut % (Auto) 66.6 Lymph % (Auto) 19.5 Ward % (Auto) 8.9 H Eos % (Auto) 1.0 Baso % (Auto) 0.7 Lymph # (Auto) 2.07 Ward # (Auto) 0.9 H Eos # (Auto) 0.1 Baso # (Auto) 0.1 Abs Immat Gran (auto) 0.35 H Absolute Neuts (auto) 7.1 H Absolute Nucleated RBC 0.000 Nucleated RBC % 0.0 Sodium 141 Potassium 3.3 L Chloride 116 H Carbon Dioxide 22 Anion Gap 3 L BUN 9 D Creatinine 0.71 Estim Creat Clear Calc 53 Estimated GFR > 60 Glucose 94 Calcium 8.6 Magnesium 1.5 L Total Bilirubin 0.5 AST 35 ALT 23 Alkaline Phosphatase 65 Total Creatine Kinase 175 H Total Protein 5.3 L Albumin 2.7 L Quality VTE Prophylaxis VTE prophylaxis: mechanical ordered
[2025-07-04] MEDS: SODIUM CHLORIDE 0.9% IV 1,000 ML 100 ML IV CONT (17:35)
[2025-07-04] MEDS: ACETAMINOPHEN 325 MG TABLET 650 MG PO (17:35)
[2025-07-04 21:13] LABS: Toxigenic C. Diff POSITIVE (NEGATIVE)
[2025-07-05] VITALS (9 sets, daily range): BP systolic 108–137; BP diastolic 70–89; PULSE 59–118; RESP 18–24; TEMP 35.7–37.2; O2SAT 94–96
[2025-07-05] MEDS: SODIUM CHLORIDE 0.9% IV 1,000 ML 100 ML IV CONT (01:14)
[2025-07-05] MEDS: PIPERACILLIN/TAZOBACTAM SOD 4.5 GM in SODIUM CHLORIDE 0.9% IV 100 ML 200 ML IVPB ×4 (01:14→16:59)
[2025-07-05] MEDS: VANCOMYCIN HCL 125 MG ORAL CAPSULE PO ×4 (01:15→16:59)
[2025-07-05] MEDS: metroNIDAZOLE 500 MG/ISO 100ML 500 MG/100 ML BAG 100 MG IVPB ×3 (05:13→21:08)
[2025-07-05] MEDS: BENZONATATE 100 MG CAPSULE PO ×3 (05:14→16:59)
[2025-07-05 06:07] LABS: Creatine Kinase 113 U/L (30-135)
--- NOTE | 2025-07-05 08:52 | WPDGIPROGNO ---
Progress Note: A&P Assessment and Plan (1) History of ovarian cancer: Code(s): Z85.43 - Personal history of malignant neoplasm of ovary Status: Acute Assessment and Plan: evaluated by oncologist recommend to complete colonoscopy, probably this monday will start full bowel prep tomorrow, now on miralax (2) Left sided colitis: Code(s): K51.50 - Left sided colitis without complications Status: Acute (3) Nausea & vomiting: Code(s): R11.2 - Nausea with vomiting, unspecified Status: Acute (4) Aspiration pneumonia: Code(s): J69.0 - Pneumonitis due to inhalation of food and vomit Status: Acute (5) Rhabdomyolysis: Code(s): M62.82 - Rhabdomyolysis Status: Acute Subjective Date/time seen: 07/05/25 08:52 Interval history: she is having more BM, still some abdominal pain Review of Systems Review of Systems: All systems reviewed & are unremarkable except as noted in HPI and below Exam Const: General: comfortable and no acute distress Other: Elderly female pt lying supine at this time in no acute distress. HENMT: Face/Nose/Sinus: Normal nares present Eyes: General: appearance normal, both eyes and all related structures Neck: Neck: supple Resp: Effort & Inspection: normal respiratory effort Auscultation: rhonchi (Coarse rhonchi bilaterally ) Cardio: Rate: regular rate Rhythm: regular rhythm GI: Auscultation: normal bowel sounds Skin: General skin exam: normal color and no rashes or lesions noted Neuro: Speech: normal speech Extrem: General: normal to inspection and no edema Psych: Mental Status: mental status grossly normal Affect: normal affect Objective Data Vital Signs Vital Signs: Vital Signs - 24 hr 07/04/25 13:47 07/04/25 13:56 07/04/25 14:00 Temperature 97.8 F Pulse Rate 95 Respiratory Rate 20 Blood Pressure 129/81 Pulse Oximetry 100 Oxygen Delivery Nasal Cannula Nasal Cannula Oxygen Flow Rate 2 2 07/04/25 14:20 07/04/25 14:30 07/04/25 16:00 Temperature Pulse Rate 94 100 96 Respiratory Rate 16 16 Blood Pressure Pulse Oximetry Oxygen Delivery Oxygen Flow Rate 07/04/25 20:00 07/04/25 22:00 07/04/25 22:10 Temperature 97.1 F L Pulse Rate 85 84 Respiratory Rate 18 Blood Pressure 116/78 Pulse Oximetry 96 93 Oxygen Delivery Nasal Cannula Oxygen Flow Rate 2 07/04/25 22:12 07/04/25 22:18 07/05/25 00:00 Temperature Pulse Rate 76 79 76 Respiratory Rate 16 16 Blood Pressure Pulse Oximetry Oxygen Delivery Oxygen Flow Rate 07/05/25 03:46 07/05/25 05:23 Temperature 97.8 F Pulse Rate 59 L 89 Respiratory Rate 18 Blood Pressure 108/70 Pulse Oximetry 94 Oxygen Delivery Oxygen Flow Rate Intake/Output Intake/Output: Intake & Output 07/02/25 07/03/25 07/04/25 07/05/25 23:59 23:59 23:59 23:59 Intake Total 4930 3770 1165 Balance 4930 3770 1165 Meds/Results Medications: Active Medications Generic Name Dose Route Start Last Admin Trade Name Freq PRN Reason Stop Dose Admin Acetaminophen 650 mg 07/03/25 04:58 07/04/25 17:35 Acetaminophen 325 Mg Tablet PO 650 mg Q4H PRN Administration Mild Pain (1-3) or Fever Albuterol 2.5 mg 07/03/25 10:26 Albuterol Sulfate Neb 2.5 Mg/3 Ml Inh INHALATION Q4HRT PRN Shortness Of Breath Albuterol/Ipratropium 3 ml 07/03/25 14:00 07/05/25 08:00 Ipratropium 0.5 Mg/Albuterol Sulfate 2.5 Mg Ampul.Neb 3 Ml INHALATION Not Given Q6HRT JACK Benzonatate 100 mg 07/05/25 06:00 07/05/25 05:14 Benzonatate 100 Mg Capsule PO 100 mg Q6H JACK Administration Sodium Chloride 1,000 mls @ 100 mls/hr 07/03/25 11:05 07/05/25 01:14 Normal Saline Iv IV CONT 100 mls/hr .Q10H JACK Administration Piperacillin Sod/Tazobactam 100 mls @ 200 mls/hr 07/03/25 12:00 07/05/25 06:39 Sod 4.5 gm/ Sodium Chloride IVPB 200 mls/hr Q6HR JACK Administration Metronidazole 500 mg in 100 mls @ 100 mls/hr 07/03/25 14:00 07/05/25 06:13 Flagyl 500 Mg/Iso Soln 100 Ml IVPB Infused Q8H JACK Infusion Lorazepam 0.5 mg 07/04/25 08:12 07/04/25 21:48 Lorazepam (*Crx) 0.5 Mg Tablet PO 0.5 mg Q6H PRN Administration Anxiety Magnesium Oxide 400 mg 07/04/25 10:40 07/04/25 13:44 Magnesium Oxide 400 Mg Tablet PO 400 mg DAILY JACK Administration Morphine Sulfate 2 mg 07/03/25 04:58 07/03/25 18:47 Morphine Sulfate (*Crx) 2 Mg/Ml Inj IV PUSH 2 mg Q2H PRN Administration Pain Rated 7-10 Nicotine 1 patch 07/03/25 11:20 07/04/25 08:59 Nicotine (*Pbkc) 21 Mg Patch TRANSDERM 1 patch DAILY JACK Administration Ondansetron HCl 4 mg 07/03/25 04:58 Ondansetron Inj 4 Mg/2 Ml Vial IV PUSH Q4H PRN Nausea Pantoprazole Sodium 40 mg 07/03/25 10:30 07/04/25 08:59 Pantoprazole 40 Mg Tablet PO 08/03/25 10:29 40 mg DAILY JACK Administration Perflutren Lipid Microsphere 0 ml 07/03/25 11:01 Perflutren Lipid Microspheres 1.5 Ml Vial Diluted To 10 Ml Total Volume IV PUSH 07/06/25 11:02 ONCE PRN adequate visualization Protocol Polyethylene Glycol 17 gm 07/04/25 08:00 07/05/25 03:24 Polyethylene Glycol 3350 17 Gm Powd.Pack PO Not Given Q6H JACK Potassium Chloride 40 meq 07/04/25 10:40 07/04/25 13:45 Potassium Chloride 20 Meq Packet (For Liquid) PO 40 meq DAILY JACK Administration Rosuvastatin Calcium 5 mg 07/03/25 10:30 07/04/25 08:59 Rosuvastatin 5 Mg Tablet PO 5 mg DAILY JACK Administration Trazodone HCl 100 mg 07/03/25 21:00 07/04/25 21:49 Trazodone Hcl 50 Mg Tablet PO 100 mg HS JACK Administration Vancomycin HCl 125 mg 07/05/25 00:25 07/05/25 05:14 Vancomycin Hcl 125 Mg Oral Capsule PO 07/15/25 00:24 125 mg Q6HR JACK Administration Radiology Results: ITS Impressions Abdomen/Pelvis CT 07/03/25 06:11 IMPRESSION: 1. Abnormally thickened left colon consistent with colitis, most likely infectious/inflammatory. 2: Patchy reticulonodular densities left lower lobe with associated 7 mm nodule, most likely infectious/inflammatory. Recommend follow-up CT in 3 months to assess for resolution. Head CT 07/03/25 07:00 IMPRESSION: 1. No acute intracranial abnormality. 2: Chronic right lacunar infarction. 3: Mild sinus disease. Carotid Doppler Study 07/04/25 11:50 IMPRESSION: 1. <50% stenosis in the right internal carotid artery. 2. <50% stenosis in the left internal carotid artery. Brain MRI 07/04/25 12:35 IMPRESSION: 1. Aging brain with chronic old lacunar infarct at the right caudate nucleus. No acute intracranial process or abnormally enhancing brain lesions. Labs Labs: Laboratory Results - last 24 hr 07/04/25 07/04/25 07/05/25 06:40 18:30 05:14 Total Creatine Kinase 113 CA 125 Antigen 19.7 C. difficile (PCR) Positive A*
--- NOTE | 2025-07-05 08:59 | P.PNIM_ITS ---
Progress Note: A&P Assessment and Plan (1) Rhabdomyolysis: Code(s): M62.82 - Rhabdomyolysis Status: Acute Assessment and Plan: * Secondary to Dehydration and laying on floor for extended period of time. * Trend CK levels. * Pt is unaware of what caused her to lay on the floor, only knows that she was weak. She does not remember any prodromal symptoms, but will do ECHO and MRI Brain and Carotid Dopplers to ensure no Neurological cause. * Hydrate with NS at 100 ml/hr. * Monitor and trend daily labs and VS. * ok to stop fluids if intake is adequate and ck downtrending * * 07/05 CK THIS AM 113 * resolved (2) Chronic obstructive pulmonary disease: Code(s): J44.9 - Chronic obstructive pulmonary disease, unspecified Status: Chronic Assessment and Plan: * Duoneb Q6 hrs * PRN Albuterol Q4hrs Dyspnea/SOB. * Supplemental Oxygen * Monitor sats and wean as appropriate (3) Aspiration pneumonitis: Code(s): J69.0 - Pneumonitis due to inhalation of food and vomit Status: Acute Assessment and Plan: * Not meeting Sepsis criteria * Zosyn Q6 hrs * Continue Duonebs and Albuterol * Supplemental oxygen * Trend labs and VS. * Wean oxygen as able to. * will continue for now (4) Hypoxemia requiring supplemental oxygen: Code(s): R09.02 - Hypoxemia; Z99.81 - Dependence on supplemental oxygen Status: Acute Assessment and Plan: * See #2 and 3. (5) Colitis: Code(s): K52.9 - Noninfective gastroenteritis and colitis, unspecified Status: Acute Assessment and Plan: * Continue Zosyn and Flagyl * As evidenced by CT Scan abd and pelvis and independently reviewed by this provider. * Consult GI in the setting of pt's hx of colon cancer with no surveillance in the past 6 years. (6) Urinary tract infection: Code(s): N39.0 - Urinary tract infection, site not specified Status: Acute Assessment and Plan: * Continue Zosyn * Urine culture is pending. 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 * Consult GI as pt now has acute Colitis. (9) Tobacco dependence: Code(s): F17.200 - Nicotine dependence, unspecified, uncomplicated Status: Chronic Assessment and Plan: * Nicotine patch (10) Hyperlipidemia: Code(s): E78.5 - Hyperlipidemia, unspecified Status: Acute Assessment and Plan: * Continue Statin therapy. (11) Gastroesophageal reflux disease: Code(s): K21.9 - Gastro-esophageal reflux disease without esophagitis Status: Chronic Assessment and Plan: * Continue PPI therapy with Omeprazole. (12) C. difficile diarrhea: Code(s): A04.72 - Enterocolitis due to Clostridium difficile, not specified as recurrent Status: Acute Assessment and Plan: vanc started overnight po for positive c diff contact isolation Time Spent With Patient Time with patient: 25 - 35 minutes Subjective Date/time seen: 07/05/25 08:59 Interval history: positive for c dif. mirlax stopped as more BM. vanc PO now for c dif. she is feeling ok. no acute complains. GI is following. Review of Systems Review of Systems: All systems reviewed & are unremarkable except as noted in HPI and below Exam Const: General: comfortable and no acute distress HENMT: Face/Nose/Sinus: Normal nares present Eyes: General: appearance normal, both eyes and all related structures Neck: Neck: supple and no JVD Lymphatic: lymphadenopathy not noted Resp: Effort & Inspection: normal respiratory effort Auscultation: rhonchi (Coarse rhonchi bilaterally ) Cardio: Rate: regular rate Rhythm: regular rhythm Heart sounds: no gallops, no murmurs and no rubs GI: Auscultation: normal bowel sounds Skin: General skin exam: normal color, no rashes or lesions noted and no erythema Wounds: no wounds Neuro: Speech: normal speech Motor exam (neuro): Abnormal motor strength present (Generalized, non-focal weakness) Sensory Exam: No normal sensation (PN of BLE ) Extrem: General: normal to inspection, no edema and no pedal edema Psych: Mental Status: mental status grossly normal Affect: normal affect Objective Data Vital Signs Vital Signs: Vital Signs - 24 hr 07/04/25 13:47 07/04/25 13:56 07/04/25 14:00 Temperature 97.8 F Pulse Rate 95 Respiratory Rate 20 Blood Pressure 129/81 Pulse Oximetry 100 Oxygen Delivery Nasal Cannula Nasal Cannula Oxygen Flow Rate 2 2 07/04/25 14:20 07/04/25 14:30 07/04/25 16:00 Temperature Pulse Rate 94 100 96 Respiratory Rate 16 16 Blood Pressure Pulse Oximetry Oxygen Delivery Oxygen Flow Rate 07/04/25 20:00 07/04/25 22:00 07/04/25 22:10 Temperature 97.1 F L Pulse Rate 85 84 Respiratory Rate 18 Blood Pressure 116/78 Pulse Oximetry 96 93 Oxygen Delivery Nasal Cannula Oxygen Flow Rate 2 07/04/25 22:12 07/04/25 22:18 07/05/25 00:00 Temperature Pulse Rate 76 79 76 Respiratory Rate 16 16 Blood Pressure Pulse Oximetry Oxygen Delivery Oxygen Flow Rate 07/05/25 03:46 07/05/25 05:23 Temperature 97.8 F Pulse Rate 59 L 89 Respiratory Rate 18 Blood Pressure 108/70 Pulse Oximetry 94 Oxygen Delivery Oxygen Flow Rate Intake/Output Intake/Output: Intake & Output 07/02/25 07/03/25 07/04/25 07/05/25 23:59 23:59 23:59 23:59 Intake Total 4930 3770 1165 Balance 4930 3770 1165 Meds/Results Medications: Active Medications Generic Name Dose Route Start Last Admin Trade Name Freq PRN Reason Stop Dose Admin Acetaminophen 650 mg 07/03/25 04:58 07/04/25 17:35 Acetaminophen 325 Mg Tablet PO 650 mg Q4H PRN Administration Mild Pain (1-3) or Fever Albuterol 2.5 mg 07/03/25 10:26 Albuterol Sulfate Neb 2.5 Mg/3 Ml Inh INHALATION Q4HRT PRN Shortness Of Breath Albuterol/Ipratropium 3 ml 07/03/25 14:00 07/05/25 08:00 Ipratropium 0.5 Mg/Albuterol Sulfate 2.5 Mg Ampul.Neb 3 Ml INHALATION Not Given Q6HRT JACK Benzonatate 100 mg 07/05/25 06:00 07/05/25 05:14 Benzonatate 100 Mg Capsule PO 100 mg Q6H JACK Administration Sodium Chloride 1,000 mls @ 100 mls/hr 07/03/25 11:05 07/05/25 01:14 Normal Saline Iv IV CONT 100 mls/hr .Q10H JACK Administration Piperacillin Sod/Tazobactam 100 mls @ 200 mls/hr 07/03/25 12:00 07/05/25 06:39 Sod 4.5 gm/ Sodium Chloride IVPB 200 mls/hr Q6HR JACK Administration Metronidazole 500 mg in 100 mls @ 100 mls/hr 07/03/25 14:00 07/05/25 06:13 Flagyl 500 Mg/Iso Soln 100 Ml IVPB Infused Q8H JACK Infusion Lorazepam 0.5 mg 07/04/25 08:12 07/04/25 21:48 Lorazepam (*Crx) 0.5 Mg Tablet PO 0.5 mg Q6H PRN Administration Anxiety Magnesium Oxide 400 mg 07/04/25 10:40 07/04/25 13:44 Magnesium Oxide 400 Mg Tablet PO 400 mg DAILY JACK Administration Morphine Sulfate 2 mg 07/03/25 04:58 07/03/25 18:47 Morphine Sulfate (*Crx) 2 Mg/Ml Inj IV PUSH 2 mg Q2H PRN Administration Pain Rated 7-10 Nicotine 1 patch 07/03/25 11:20 07/04/25 08:59 Nicotine (*Pbkc) 21 Mg Patch TRANSDERM 1 patch DAILY JACK Administration Ondansetron HCl 4 mg 07/03/25 04:58 Ondansetron Inj 4 Mg/2 Ml Vial IV PUSH Q4H PRN Nausea Pantoprazole Sodium 40 mg 07/03/25 10:30 07/04/25 08:59 Pantoprazole 40 Mg Tablet PO 08/03/25 10:29 40 mg DAILY JACK Administration Perflutren Lipid Microsphere 0 ml 07/03/25 11:01 Perflutren Lipid Microspheres 1.5 Ml Vial Diluted To 10 Ml Total Volume IV PUSH 07/06/25 11:02 ONCE PRN adequate visualization Protocol Polyethylene Glycol 17 gm 07/04/25 08:00 07/05/25 03:24 Polyethylene Glycol 3350 17 Gm Powd.Pack PO Not Given Q6H JACK Potassium Chloride 40 meq 07/04/25 10:40 07/04/25 13:45 Potassium Chloride 20 Meq Packet (For Liquid) PO 40 meq DAILY JACK Administration Rosuvastatin Calcium 5 mg 07/03/25 10:30 07/04/25 08:59 Rosuvastatin 5 Mg Tablet PO 5 mg DAILY JACK Administration Trazodone HCl 100 mg 07/03/25 21:00 07/04/25 21:49 Trazodone Hcl 50 Mg Tablet PO 100 mg HS JACK Administration Vancomycin HCl 125 mg 07/05/25 00:25 07/05/25 05:14 Vancomycin Hcl 125 Mg Oral Capsule PO 07/15/25 00:24 125 mg Q6HR JACK Administration Radiology Results: ITS Impressions Abdomen/Pelvis CT 07/03/25 06:11 IMPRESSION: 1. Abnormally thickened left colon consistent with colitis, most likely infectious/inflammatory. 2: Patchy reticulonodular densities left lower lobe with associated 7 mm nodule, most likely infectious/inflammatory. Recommend follow-up CT in 3 months to assess for resolution. Head CT 07/03/25 07:00 IMPRESSION: 1. No acute intracranial abnormality. 2: Chronic right lacunar infarction. 3: Mild sinus disease. Carotid Doppler Study 07/04/25 11:50 IMPRESSION: 1. <50% stenosis in the right internal carotid artery. 2. <50% stenosis in the left internal carotid artery. Brain MRI 07/04/25 12:35 IMPRESSION: 1. Aging brain with chronic old lacunar infarct at the right caudate nucleus. No acute intracranial process or abnormally enhancing brain lesions. Labs Labs: Laboratory Results - last 24 hr 07/04/25 07/04/25 07/05/25 06:40 18:30 05:14 Total Creatine Kinase 113 CA 125 Antigen 19.7 C. difficile (PCR) Positive A* Quality VTE Prophylaxis VTE prophylaxis: mechanical ordered
[2025-07-05] MEDS: ROSUVASTATIN 5 MG TABLET PO (09:25)
[2025-07-05] MEDS: MAGNESIUM OXIDE 400 MG TABLET PO (09:25)
[2025-07-05] MEDS: PANTOPRAZOLE 40 MG TABLET PO (09:25)
[2025-07-05] MEDS: NICOTINE (*PBKC) 21 MG PATCH 1 PATCH TRANSDERM (09:25)
[2025-07-05] MEDS: POTASSIUM CHLORIDE 20 MEQ PACKET (FOR LIQUID) 40 MEQ PO (09:25)
[2025-07-05] MEDS: LORazepam (*CRX) 0.5 MG TABLET PO ×2 (10:08→21:13)
[2025-07-05] MEDS: SODIUM CHLORIDE 0.9% IV 1,000 ML 50 ML IV CONT (16:56)
[2025-07-06] VITALS (10 sets, daily range): BP systolic 126–144; BP diastolic 71–86; PULSE 70–100; RESP 17–20; TEMP 35.9–37.1; O2SAT 93–95
[2025-07-06] MEDS: PIPERACILLIN/TAZOBACTAM SOD 4.5 GM in SODIUM CHLORIDE 0.9% IV 100 ML 200 ML IVPB ×3 (00:21→23:12)
[2025-07-06] MEDS: BENZONATATE 100 MG CAPSULE PO ×5 (00:21→23:12)
[2025-07-06] MEDS: VANCOMYCIN HCL 125 MG ORAL CAPSULE PO ×5 (00:22→23:12)
[2025-07-06 06:17] LABS: Hematocrit 30.1 % (37.0-47.0); Hemoglobin 10.0 g/dL (12.0-15.0); Mean Corpuscular HGB Conc 33.2 g/dl (32-36); Mean Corpuscular Hemoglobin 30.3 pg (26-34); Mean Corpuscular Volume 91.2 fl (80-100); Platelet Count Result 189 k/mm3 (150-375); Red Blood Count 3.30 M/mm3 (4.2-5.4); White Blood Count 9.0 K/mm3 (4.5-10.0)
[2025-07-06] MEDS: metroNIDAZOLE 500 MG/ISO 100ML 500 MG/100 ML BAG 100 MG IVPB ×2 (06:20→21:30)
[2025-07-06] MEDS: MORPHINE SULFATE (*CRX) 2 MG/ML INJ IV PUSH ×5 (06:29→23:12)
[2025-07-06 06:44] LABS: Anion Gap 5 mmol/L (4-12); Calcium 8.0 mg/dL (8.4-10.2); Carbon Dioxide 25 mmol/L (22-30); Chloride 108 mmol/L (98-107); Estimated CRCL calculation 62 ml/min; Estimated Glomerular Filt Rate > 60; Glucose 85 mg/dL (65-110); Potassium 2.6 mmol/L (3.4-5.0); Sodium 138 mmol/L (137-145)
[2025-07-06 06:47] LABS: Blood Urea Nitrogen < 2 mg/dL (7-17)
[2025-07-06] MEDS: MAGNESIUM OXIDE 400 MG TABLET PO (08:02)
[2025-07-06] MEDS: POTASSIUM CHLORIDE INJ 40 MEQ in SODIUM CHLORIDE 0.9% IV 500 ML 130 MEQ IVPB (08:02)
[2025-07-06] MEDS: PANTOPRAZOLE 40 MG TABLET PO (08:02)
[2025-07-06] MEDS: POTASSIUM CHLORIDE 20 MEQ PACKET (FOR LIQUID) 40 MEQ PO (08:02)
[2025-07-06] MEDS: ROSUVASTATIN 5 MG TABLET PO (08:02)
[2025-07-06] MEDS: NICOTINE (*PBKC) 21 MG PATCH 1 PATCH TRANSDERM (08:08)
[2025-07-06] MEDS: IPRATROPIUM 0.5 MG/ALBUTEROL SULFATE 2.5 MG AMPUL.NEB 3 ML INHALATION ×2 (10:22→19:45)
--- NOTE | 2025-07-06 10:42 | P.PNIM_ITS ---
Progress Note: A&P Assessment and Plan (1) Rhabdomyolysis: Code(s): M62.82 - Rhabdomyolysis Status: Acute Assessment and Plan: * Secondary to Dehydration and laying on floor for extended period of time. * Trend CK levels. * Pt is unaware of what caused her to lay on the floor, only knows that she was weak. She does not remember any prodromal symptoms, but will do ECHO and MRI Brain and Carotid Dopplers to ensure no Neurological cause. * Hydrate with NS at 100 ml/hr. * Monitor and trend daily labs and VS. * ok to stop fluids if intake is adequate and ck downtrending * * 07/05 CK THIS AM 113 * resolved (2) Chronic obstructive pulmonary disease: Code(s): J44.9 - Chronic obstructive pulmonary disease, unspecified Status: Chronic Assessment and Plan: * Duoneb Q6 hrs * PRN Albuterol Q4hrs Dyspnea/SOB. * Supplemental Oxygen * Monitor sats and wean as appropriate (3) Aspiration pneumonitis: Code(s): J69.0 - Pneumonitis due to inhalation of food and vomit Status: Acute Assessment and Plan: * Not meeting Sepsis criteria * Zosyn Q6 hrs * Continue Duonebs and Albuterol * Supplemental oxygen * Trend labs and VS. * Wean oxygen as able to. * will continue for now (4) Hypoxemia requiring supplemental oxygen: Code(s): R09.02 - Hypoxemia; Z99.81 - Dependence on supplemental oxygen Status: Acute Assessment and Plan: * See #2 and 3. (5) Colitis: Code(s): K52.9 - Noninfective gastroenteritis and colitis, unspecified Status: Acute Assessment and Plan: * Continue Zosyn and Flagyl * As evidenced by CT Scan abd and pelvis and independently reviewed by this provider. * Consult GI in the setting of pt's hx of colon cancer with no surveillance in the past 6 years. (6) Urinary tract infection: Code(s): N39.0 - Urinary tract infection, site not specified Status: Acute Assessment and Plan: * Continue Zosyn * Urine culture is pending. 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 * Consult GI as pt now has acute Colitis. (9) Tobacco dependence: Code(s): F17.200 - Nicotine dependence, unspecified, uncomplicated Status: Chronic Assessment and Plan: * Nicotine patch (10) Hyperlipidemia: Code(s): E78.5 - Hyperlipidemia, unspecified Status: Acute Assessment and Plan: * Continue Statin therapy. (11) Gastroesophageal reflux disease: Code(s): K21.9 - Gastro-esophageal reflux disease without esophagitis Status: Chronic Assessment and Plan: * Continue PPI therapy with Omeprazole. (12) C. difficile diarrhea: Code(s): A04.72 - Enterocolitis due to Clostridium difficile, not specified as recurrent Status: Acute Assessment and Plan: vanc started overnight po for positive c diff contact isolation Time Spent With Patient Time with patient: 25 - 35 minutes Subjective Date/time seen: 07/06/25 10:42 Interval history: positive for c dif. mirlax stopped as more BM. vanc PO now for c dif. she is feeling ok. no acute complains. GI is following. 07/06 k is low-ordered replacement. tele, pt is doing ok, multiple BMs overnight but nothing today so far. Review of Systems Review of Systems: All systems reviewed & are unremarkable except as noted in HPI and below Exam Const: General: comfortable and no acute distress Other: Elderly female pt lying supine at this time in no acute distress. HENMT: Face/Nose/Sinus: Normal nares present Eyes: General: appearance normal, both eyes and all related structures Neck: Neck: supple and no JVD Lymphatic: lymphadenopathy not noted Resp: Effort & Inspection: normal respiratory effort Auscultation: rhonchi (Coarse rhonchi bilaterally ) Cardio: Rate: regular rate Rhythm: regular rhythm Heart sounds: no gallops, no murmurs and no rubs GI: Auscultation: normal bowel sounds Skin: General skin exam: normal color, no rashes or lesions noted and no erythema Wounds: no wounds Neuro: Speech: normal speech Motor exam (neuro): Abnormal motor strength present (Generalized, non-focal weakness) Sensory Exam: No normal sensation (PN of BLE ) Extrem: General: normal to inspection, no edema and no pedal edema Psych: Mental Status: mental status grossly normal Affect: normal affect Objective Data Vital Signs Vital Signs: Vital Signs - 24 hr 07/05/25 12:00 07/05/25 14:00 07/05/25 16:00 Temperature 99.0 F Pulse Rate 101 H 83 118 H Respiratory Rate 18 Blood Pressure 137/89 Pulse Oximetry 96 Oxygen Delivery 07/05/25 20:00 07/05/25 20:00 07/05/25 22:00 Temperature 96.2 F L Pulse Rate 74 73 79 Respiratory Rate 20 24 H Blood Pressure 137/78 Pulse Oximetry 95 95 Oxygen Delivery Room Air 07/06/25 00:00 07/06/25 04:00 07/06/25 06:00 Temperature 97.2 F L Pulse Rate 73 75 96 Respiratory Rate 20 Blood Pressure 144/82 H Pulse Oximetry 95 Oxygen Delivery 07/06/25 10:22 Temperature Pulse Rate Respiratory Rate 17 Blood Pressure Pulse Oximetry Oxygen Delivery Intake/Output Intake/Output: Intake & Output 07/03/25 07/04/25 07/05/25 07/06/25 23:59 23:59 23:59 23:59 Intake Total 4930 3770 3935 200 Balance 4930 3770 3935 200 Meds/Results Medications: Active Medications Generic Name Dose Route Start Last Admin Trade Name Freq PRN Reason Stop Dose Admin Acetaminophen 650 mg 07/03/25 04:58 07/04/25 17:35 Acetaminophen 325 Mg Tablet PO 650 mg Q4H PRN Administration Mild Pain (1-3) or Fever Albuterol 2.5 mg 07/03/25 10:26 Albuterol Sulfate Neb 2.5 Mg/3 Ml Inh INHALATION Q4HRT PRN Shortness Of Breath Albuterol/Ipratropium 3 ml 07/05/25 11:43 07/06/25 10:22 Ipratropium 0.5 Mg/Albuterol Sulfate 2.5 Mg Ampul.Neb 3 Ml INHALATION 3 ml Q6HRT PRN Administration Shortness Of Breath Benzonatate 100 mg 07/05/25 06:00 07/06/25 06:16 Benzonatate 100 Mg Capsule PO 100 mg Q6H JACK Administration Sodium Chloride 1,000 mls @ 50 mls/hr 07/03/25 11:05 07/05/25 16:56 Normal Saline Iv IV CONT 50 mls/hr .Q20H JACK Administration Piperacillin Sod/Tazobactam 100 mls @ 200 mls/hr 07/03/25 12:00 07/06/25 06:18 Sod 4.5 gm/ Sodium Chloride IVPB 200 mls/hr Q6HR JACK Administration Metronidazole 500 mg in 100 mls @ 100 mls/hr 07/03/25 14:00 07/06/25 06:20 Flagyl 500 Mg/Iso Soln 100 Ml IVPB 100 mls/hr Q8H JACK Administration Potassium Chloride 40 meq/ 520 mls @ 130 mls/hr 07/06/25 07:37 07/06/25 08:02 Sodium Chloride IVPB 07/06/25 11:36 130 mls/hr ONCE ONE Administration Potassium Chloride 40 meq/ 520 mls @ 130 mls/hr 07/06/25 14:00 Sodium Chloride IVPB 07/06/25 17:59 ONCE ONE Lorazepam 0.5 mg 07/04/25 08:12 07/05/25 21:13 Lorazepam (*Crx) 0.5 Mg Tablet PO 0.5 mg Q6H PRN Administration Anxiety Magnesium Oxide 400 mg 07/04/25 10:40 07/06/25 08:02 Magnesium Oxide 400 Mg Tablet PO 400 mg DAILY JACK Administration Morphine Sulfate 2 mg 07/03/25 04:58 07/06/25 06:29 Morphine Sulfate (*Crx) 2 Mg/Ml Inj IV PUSH 2 mg Q2H PRN Administration Pain Rated 7-10 Nicotine 1 patch 07/03/25 11:20 07/06/25 08:08 Nicotine (*Pbkc) 21 Mg Patch TRANSDERM 1 patch DAILY JACK Administration Ondansetron HCl 4 mg 07/03/25 04:58 Ondansetron Inj 4 Mg/2 Ml Vial IV PUSH Q4H PRN Nausea Pantoprazole Sodium 40 mg 07/03/25 10:30 07/06/25 08:02 Pantoprazole 40 Mg Tablet PO 08/03/25 10:29 40 mg DAILY JACK Administration Perflutren Lipid Microsphere 0 ml 07/03/25 11:01 Perflutren Lipid Microspheres 1.5 Ml Vial Diluted To 10 Ml Total Volume IV PUSH 07/06/25 11:02 ONCE PRN adequate visualization Protocol Potassium Chloride 40 meq 07/04/25 10:40 07/06/25 08:02 Potassium Chloride 20 Meq Packet (For Liquid) PO 40 meq DAILY JACK Administration Rosuvastatin Calcium 5 mg 07/03/25 10:30 07/06/25 08:02 Rosuvastatin 5 Mg Tablet PO 5 mg DAILY JACK Administration Trazodone HCl 100 mg 07/03/25 21:00 07/05/25 21:08 Trazodone Hcl 50 Mg Tablet PO 100 mg HS JACK Administration Vancomycin HCl 125 mg 07/05/25 00:25 07/06/25 06:16 Vancomycin Hcl 125 Mg Oral Capsule PO 07/15/25 00:24 125 mg Q6HR JACK Administration Radiology Results: ITS Impressions Abdomen/Pelvis CT 07/03/25 06:11 IMPRESSION: 1. Abnormally thickened left colon consistent with colitis, most likely infectious/inflammatory. 2: Patchy reticulonodular densities left lower lobe with associated 7 mm nodule, most likely infectious/inflammatory. Recommend follow-up CT in 3 months to assess for resolution. Head CT 07/03/25 07:00 IMPRESSION: 1. No acute intracranial abnormality. 2: Chronic right lacunar infarction. 3: Mild sinus disease. Carotid Doppler Study 07/04/25 11:50 IMPRESSION: 1. <50% stenosis in the right internal carotid artery. 2. <50% stenosis in the left internal carotid artery. Brain MRI 07/04/25 12:35 IMPRESSION: 1. Aging brain with chronic old lacunar infarct at the right caudate nucleus. No acute intracranial process or abnormally enhancing brain lesions. Labs Labs: Laboratory Results - last 24 hr 07/06/25 05:21 WBC 9.0 RBC 3.30 L Hgb 10.0 L Hct 30.1 L MCV 91.2 MCH 30.3 MCHC 33.2 RDW 14.6 H Plt Count 189 MPV 10.1 Sodium 138 Potassium 2.6 L* Chloride 108 H Carbon Dioxide 25 Anion Gap 5 BUN < 2 L Creatinine 0.60 L Estim Creat Clear Calc 62 Estimated GFR > 60 Glucose 85 Calcium 8.0 L Quality VTE Prophylaxis VTE prophylaxis: mechanical ordered
[2025-07-06] MEDS: LORazepam (*CRX) 0.5 MG TABLET PO ×2 (13:41→21:29)
--- NOTE | 2025-07-06 14:46 | WPDGIPROGNO ---
Progress Note: A&P Assessment and Plan (1) History of ovarian cancer: Code(s): Z85.43 - Personal history of malignant neoplasm of ovary Status: Acute Assessment and Plan: evaluated by oncologist recommend to complete colonoscopy, start full bowel prep and tomorrow scope (2) Left sided colitis: Code(s): K51.50 - Left sided colitis without complications Status: Acute (3) Nausea & vomiting: Code(s): R11.2 - Nausea with vomiting, unspecified Status: Acute Assessment and Plan: resolved (4) Aspiration pneumonia: Code(s): J69.0 - Pneumonitis due to inhalation of food and vomit Status: Acute (5) Rhabdomyolysis: Code(s): M62.82 - Rhabdomyolysis Status: Acute Subjective Date/time seen: 07/06/25 14:46 Interval history: no new events, comfortable Review of Systems Review of Systems: All systems reviewed & are unremarkable except as noted in HPI and below Exam Const: General: comfortable and no acute distress Other: Elderly female pt lying supine at this time in no acute distress. HENMT: Face/Nose/Sinus: Normal nares present Eyes: General: appearance normal, both eyes and all related structures Neck: Neck: supple Resp: Effort & Inspection: normal respiratory effort Auscultation: rhonchi (Coarse rhonchi bilaterally ) Cardio: Rate: regular rate Rhythm: regular rhythm GI: Auscultation: normal bowel sounds Skin: General skin exam: normal color and no rashes or lesions noted Neuro: Speech: normal speech Extrem: General: normal to inspection and no edema Psych: Mental Status: mental status grossly normal Affect: normal affect Objective Data Vital Signs Vital Signs: Vital Signs - 24 hr 07/05/25 16:00 07/05/25 20:00 07/05/25 20:00 Temperature Pulse Rate 118 H 74 73 Respiratory Rate 20 Blood Pressure Pulse Oximetry 95 Oxygen Delivery Room Air 07/05/25 22:00 07/06/25 00:00 07/06/25 04:00 Temperature 96.2 F L Pulse Rate 79 73 75 Respiratory Rate 24 H Blood Pressure 137/78 Pulse Oximetry 95 Oxygen Delivery 07/06/25 06:00 07/06/25 10:22 Temperature 97.2 F L Pulse Rate 96 Respiratory Rate 20 17 Blood Pressure 144/82 H Pulse Oximetry 95 Oxygen Delivery Intake/Output Intake/Output: Intake & Output 07/03/25 07/04/25 07/05/25 07/06/25 23:59 23:59 23:59 23:59 Intake Total 4930 3770 3935 200 Balance 4930 3770 3935 200 Meds/Results Medications: Active Medications Generic Name Dose Route Start Last Admin Trade Name Freq PRN Reason Stop Dose Admin Acetaminophen 650 mg 07/03/25 04:58 07/04/25 17:35 Acetaminophen 325 Mg Tablet PO 650 mg Q4H PRN Administration Mild Pain (1-3) or Fever Albuterol 2.5 mg 07/03/25 10:26 Albuterol Sulfate Neb 2.5 Mg/3 Ml Inh INHALATION Q4HRT PRN Shortness Of Breath Albuterol/Ipratropium 3 ml 07/05/25 11:43 07/06/25 10:22 Ipratropium 0.5 Mg/Albuterol Sulfate 2.5 Mg Ampul.Neb 3 Ml INHALATION 3 ml Q6HRT PRN Administration Shortness Of Breath Benzonatate 100 mg 07/05/25 06:00 07/06/25 13:41 Benzonatate 100 Mg Capsule PO 100 mg Q6H JACK Administration Sodium Chloride 1,000 mls @ 50 mls/hr 07/03/25 11:05 07/05/25 16:56 Normal Saline Iv IV CONT 50 mls/hr .Q20H JACK Administration Piperacillin Sod/Tazobactam 100 mls @ 200 mls/hr 07/03/25 12:00 07/06/25 06:18 Sod 4.5 gm/ Sodium Chloride IVPB 200 mls/hr Q6HR JACK Administration Metronidazole 500 mg in 100 mls @ 100 mls/hr 07/03/25 14:00 07/06/25 06:20 Flagyl 500 Mg/Iso Soln 100 Ml IVPB 100 mls/hr Q8H JACK Administration Potassium Chloride 40 meq/ 520 mls @ 130 mls/hr 07/06/25 14:00 Sodium Chloride IVPB 07/06/25 17:59 ONCE ONE Lorazepam 0.5 mg 07/04/25 08:12 07/06/25 13:41 Lorazepam (*Crx) 0.5 Mg Tablet PO 0.5 mg Q6H PRN Administration Anxiety Magnesium Oxide 400 mg 07/04/25 10:40 07/06/25 08:02 Magnesium Oxide 400 Mg Tablet PO 400 mg DAILY JACK Administration Morphine Sulfate 2 mg 07/03/25 04:58 07/06/25 13:41 Morphine Sulfate (*Crx) 2 Mg/Ml Inj IV PUSH 2 mg Q2H PRN Administration Pain Rated 7-10 Nicotine 1 patch 07/03/25 11:20 07/06/25 08:08 Nicotine (*Pbkc) 21 Mg Patch TRANSDERM 1 patch DAILY JACK Administration Ondansetron HCl 4 mg 07/03/25 04:58 Ondansetron Inj 4 Mg/2 Ml Vial IV PUSH Q4H PRN Nausea Pantoprazole Sodium 40 mg 07/03/25 10:30 07/06/25 08:02 Pantoprazole 40 Mg Tablet PO 08/03/25 10:29 40 mg DAILY JACK Administration Potassium Chloride 40 meq 07/04/25 10:40 07/06/25 08:02 Potassium Chloride 20 Meq Packet (For Liquid) PO 40 meq DAILY JACK Administration Rosuvastatin Calcium 5 mg 07/03/25 10:30 07/06/25 08:02 Rosuvastatin 5 Mg Tablet PO 5 mg DAILY JACK Administration Trazodone HCl 100 mg 07/03/25 21:00 07/05/25 21:08 Trazodone Hcl 50 Mg Tablet PO 100 mg HS JACK Administration Vancomycin HCl 125 mg 07/05/25 00:25 07/06/25 13:41 Vancomycin Hcl 125 Mg Oral Capsule PO 07/15/25 00:24 125 mg Q6HR JACK Administration Radiology Results: ITS Impressions Abdomen/Pelvis CT 07/03/25 06:11 IMPRESSION: 1. Abnormally thickened left colon consistent with colitis, most likely infectious/inflammatory. 2: Patchy reticulonodular densities left lower lobe with associated 7 mm nodule, most likely infectious/inflammatory. Recommend follow-up CT in 3 months to assess for resolution. Head CT 07/03/25 07:00 IMPRESSION: 1. No acute intracranial abnormality. 2: Chronic right lacunar infarction. 3: Mild sinus disease. Carotid Doppler Study 07/04/25 11:50 IMPRESSION: 1. <50% stenosis in the right internal carotid artery. 2. <50% stenosis in the left internal carotid artery. Brain MRI 07/04/25 12:35 IMPRESSION: 1. Aging brain with chronic old lacunar infarct at the right caudate nucleus. No acute intracranial process or abnormally enhancing brain lesions. Labs Labs: Laboratory Results - last 24 hr 07/06/25 05:21 WBC 9.0 RBC 3.30 L Hgb 10.0 L Hct 30.1 L MCV 91.2 MCH 30.3 MCHC 33.2 RDW 14.6 H Plt Count 189 MPV 10.1 Sodium 138 Potassium 2.6 L* Chloride 108 H Carbon Dioxide 25 Anion Gap 5 BUN < 2 L Creatinine 0.60 L Estim Creat Clear Calc 62 Estimated GFR > 60 Glucose 85 Calcium 8.0 L
[2025-07-06] MEDS: POTASSIUM CHLORIDE INJ 40 MEQ in SODIUM CHLORIDE 0.9% IV 500 ML 100 MEQ IVPB (15:57)
[2025-07-06] MEDS: BISACODYL 5 MG TABLET EC 20 MG PO (16:15)
[2025-07-06] MEDS: SODIUM CHLORIDE 0.9% IV 1,000 ML 50 ML IV CONT (20:11)
[2025-07-06 22:43] LABS: Potassium 3.3 mmol/L (3.4-5.0)
[2025-07-07] VITALS (13 sets, daily range): BP systolic 99–135; BP diastolic 47–84; PULSE 74–105; RESP 14–20; TEMP 35.7–36.8; O2SAT 93–96
[2025-07-07] MEDS: MAGNESIUM CITRATE 300 ML BTL PO (00:30)
[2025-07-07] MEDS: MORPHINE SULFATE (*CRX) 2 MG/ML INJ IV PUSH ×5 (04:05→23:05)
[2025-07-07] MEDS: PIPERACILLIN/TAZOBACTAM SOD 4.5 GM in SODIUM CHLORIDE 0.9% IV 100 ML 200 ML IVPB (05:02)
[2025-07-07] MEDS: BENZONATATE 100 MG CAPSULE PO ×4 (05:02→23:05)
[2025-07-07] MEDS: LORazepam (*CRX) 0.5 MG TABLET PO ×3 (05:02→21:26)
[2025-07-07] MEDS: VANCOMYCIN HCL 125 MG ORAL CAPSULE PO ×4 (05:02→23:05)
[2025-07-07 05:40] LABS: Hematocrit 31.2 % (37.0-47.0); Hemoglobin 10.4 g/dL (12.0-15.0); Mean Corpuscular HGB Conc 33.3 g/dl (32-36); Mean Corpuscular Hemoglobin 31.0 pg (26-34); Mean Corpuscular Volume 92.9 fl (80-100); Platelet Count Result 203 k/mm3 (150-375); Red Blood Count 3.36 M/mm3 (4.2-5.4); White Blood Count 10.3 K/mm3 (4.5-10.0)
[2025-07-07] MEDS: metroNIDAZOLE 500 MG/ISO 100ML 500 MG/100 ML BAG 100 MG IVPB (05:54)
[2025-07-07 06:06] LABS: Anion Gap 8 mmol/L (4-12); Blood Urea Nitrogen < 2 mg/dL (7-17); Calcium 8.5 mg/dL (8.4-10.2); Carbon Dioxide 20 mmol/L (22-30); Chloride 110 mmol/L (98-107); Estimated CRCL calculation 67 ml/min; Estimated Glomerular Filt Rate > 60; Glucose 93 mg/dL (65-110); Potassium 3.3 mmol/L (3.4-5.0); Sodium 138 mmol/L (137-145)
[2025-07-07] MEDS: MAGNESIUM OXIDE 400 MG TABLET PO (08:33)
[2025-07-07] MEDS: PANTOPRAZOLE 40 MG TABLET PO (08:33)
[2025-07-07] MEDS: ROSUVASTATIN 5 MG TABLET PO (08:34)
[2025-07-07] MEDS: POTASSIUM CHLORIDE 20 MEQ PACKET (FOR LIQUID) 40 MEQ PO (08:34)
[2025-07-07] MEDS: NICOTINE (*PBKC) 21 MG PATCH 1 PATCH TRANSDERM (08:36)
--- NOTE | 2025-07-07 09:34 | P.PNIM_ITS ---
Progress Note: A&P Assessment and Plan (1) Chronic obstructive pulmonary disease: Code(s): J44.9 - Chronic obstructive pulmonary disease, unspecified Status: Chronic Assessment and Plan: * Duoneb Q6 hrs * PRN Albuterol Q4hrs Dyspnea/SOB. * Supplemental Oxygen * Monitor sats and wean as appropriate * stable- no acute issues (2) Aspiration pneumonitis: Code(s): J69.0 - Pneumonitis due to inhalation of food and vomit Status: Acute Assessment and Plan: * Not meeting Sepsis criteria * Zosyn Q6 hrs * Continue Duonebs and Albuterol * Supplemental oxygen * Trend labs and VS. * Wean oxygen as able to. * will continue for now * * stable * downgrade to Bactrum to cover UTI - end date 07/09/25 (3) Hypoxemia requiring supplemental oxygen: Code(s): R09.02 - Hypoxemia; Z99.81 - Dependence on supplemental oxygen Status: Acute Assessment and Plan: * See #2 and 3. (4) Colitis: Code(s): K52.9 - Noninfective gastroenteritis and colitis, unspecified Status: Acute Assessment and Plan: * Continue Zosyn and Flagyl * As evidenced by CT Scan abd and pelvis and independently reviewed by this provider. * Consult GI in the setting of pt's hx of colon cancer with no surveillance in the past 6 years. (5) Urinary tract infection: Code(s): N39.0 - Urinary tract infection, site not specified Status: Acute Assessment and Plan: * Continue Zosyn * Urine culture is pending. * downgraded to bactrum - end date 07/09/25 (6) Other abnormalities of gait and mobility: Code(s): R26.89 - Other abnormalities of gait and mobility Status: Acute Assessment and Plan: * Fall Precautions * PT/OT consult and treat (7) History of colon cancer: Code(s): Z85.038 - Personal history of other malignant neoplasm of large intestine Status: Deleted Assessment and Plan: * Last chemo was in 2019, her cancer was mets from the Ovaries. * Consult GI as pt now has acute Colitis. * * 07/07 colonoscopy (8) Tobacco dependence: Code(s): F17.200 - Nicotine dependence, unspecified, uncomplicated Status: Chronic Assessment and Plan: * Nicotine patch (9) Hyperlipidemia: Code(s): E78.5 - Hyperlipidemia, unspecified Status: Acute Assessment and Plan: * Continue Statin therapy. (10) Gastroesophageal reflux disease: Code(s): K21.9 - Gastro-esophageal reflux disease without esophagitis Status: Chronic Assessment and Plan: * Continue PPI therapy with Omeprazole. (11) C. difficile diarrhea: Code(s): A04.72 - Enterocolitis due to Clostridium difficile, not specified as recurrent Status: Acute Assessment and Plan: vanc started overnight po for positive c diff contact isolation PO vanc - end date 07/15/25 care coordination following for po vanc Time Spent With Patient Time with patient: 25 - 35 minutes Subjective Date/time seen: 07/07/25 09:34 Interval history: This is a 70 year old female pt with PMH of Tobacco Dependence, Peripheral Neuropathy due to Chemotherapy last dosed in 2019, DDD, GERD, HTN, COPD, Hep C, Anemia, Anxiety, Depression, Arthritis, and Ovarian CA with METS to colon with last chemo in 2019 who lives independently at a senior apartment presented admitted with complaints of N/V/D and weakness. Colonoscopy today, 07/07 Review of Systems Review of Systems: All systems reviewed & are unremarkable except as noted in HPI and below Exam Const: General: comfortable and no acute distress Other: Elderly female pt lying supine at this time in no acute distress. HENMT: Face/Nose/Sinus: Normal nares present Eyes: General: appearance normal, both eyes and all related structures Neck: Neck: supple and no JVD Lymphatic: lymphadenopathy not noted Resp: Effort & Inspection: normal respiratory effort Auscultation: rhonchi (Coarse rhonchi bilaterally ) Cardio: Rate: regular rate Rhythm: regular rhythm Heart sounds: no gallops, no murmurs and no rubs GI: Auscultation: normal bowel sounds Skin: General skin exam: normal color, no rashes or lesions noted and no erythema Wounds: no wounds Neuro: Speech: normal speech Motor exam (neuro): Abnormal motor strength present (Generalized, non-focal weakness) Sensory Exam: No normal sensation (PN of BLE ) Extrem: General: normal to inspection, no edema and no pedal edema Psych: Mental Status: mental status grossly normal Affect: normal affect Objective Data Vital Signs Vital Signs: Vital Signs - 24 hr 07/06/25 10:22 07/06/25 12:00 07/06/25 14:00 Temperature 98.8 F Pulse Rate 93 94 Respiratory Rate 17 20 Blood Pressure 126/71 Pulse Oximetry 95 07/06/25 16:00 07/06/25 20:00 07/06/25 20:25 Temperature 96.6 F L Pulse Rate 88 95 100 Respiratory Rate 20 Blood Pressure 144/86 H Pulse Oximetry 93 07/07/25 00:00 07/07/25 04:00 07/07/25 04:55 Temperature 98.3 F Pulse Rate 91 94 89 Respiratory Rate 18 Blood Pressure 133/79 Pulse Oximetry 93 Intake/Output Intake/Output: Intake & Output 07/04/25 07/05/25 07/06/25 07/07/25 23:59 23:59 23:59 23:59 Intake Total 3770 3935 2710 300 Balance 3770 3935 2710 300 Meds/Results Medications: Active Medications Generic Name Dose Route Start Last Admin Trade Name Freq PRN Reason Stop Dose Admin Acetaminophen 650 mg 07/03/25 04:58 07/04/25 17:35 Acetaminophen 325 Mg Tablet PO 650 mg Q4H PRN Administration Mild Pain (1-3) or Fever Albuterol 2.5 mg 07/03/25 10:26 Albuterol Sulfate Neb 2.5 Mg/3 Ml Inh INHALATION Q4HRT PRN Shortness Of Breath Albuterol/Ipratropium 3 ml 07/05/25 11:43 07/06/25 19:45 Ipratropium 0.5 Mg/Albuterol Sulfate 2.5 Mg Ampul.Neb 3 Ml INHALATION 3 ml Q6HRT PRN Administration Shortness Of Breath Benzonatate 100 mg 07/05/25 06:00 07/07/25 05:02 Benzonatate 100 Mg Capsule PO 100 mg Q6H JACK Administration Sodium Chloride 1,000 mls @ 50 mls/hr 07/03/25 11:05 07/06/25 20:11 Normal Saline Iv IV CONT 50 mls/hr .Q20H JACK Administration Metronidazole 500 mg in 100 mls @ 100 mls/hr 07/06/25 22:00 07/07/25 05:54 Flagyl 500 Mg/Iso Soln 100 Ml IVPB 100 mls/hr Q8H JACK Administration Piperacillin Sod/Tazobactam 100 mls @ 200 mls/hr 07/06/25 23:00 07/07/25 05:32 Sod 4.5 gm/ Sodium Chloride IVPB Infused Q6HR JACK Infusion Potassium Chloride 40 meq/ 520 mls @ 130 mls/hr 07/07/25 09:31 Sodium Chloride IVPB 07/07/25 13:30 ONCE ONE Lorazepam 0.5 mg 07/04/25 08:12 07/07/25 05:02 Lorazepam (*Crx) 0.5 Mg Tablet PO 0.5 mg Q6H PRN Administration Anxiety Magnesium Oxide 400 mg 07/04/25 10:40 07/07/25 08:33 Magnesium Oxide 400 Mg Tablet PO 400 mg DAILY JACK Administration Morphine Sulfate 2 mg 07/03/25 04:58 07/07/25 08:37 Morphine Sulfate (*Crx) 2 Mg/Ml Inj IV PUSH 2 mg Q2H PRN Administration Pain Rated 7-10 Nicotine 1 patch 07/03/25 11:20 07/07/25 08:36 Nicotine (*Pbkc) 21 Mg Patch TRANSDERM 1 patch DAILY JACK Administration Ondansetron HCl 4 mg 07/03/25 04:58 Ondansetron Inj 4 Mg/2 Ml Vial IV PUSH Q4H PRN Nausea Pantoprazole Sodium 40 mg 07/03/25 10:30 07/07/25 08:33 Pantoprazole 40 Mg Tablet PO 08/03/25 10:29 40 mg DAILY JACK Administration Potassium Chloride 40 meq 07/04/25 10:40 07/07/25 08:34 Potassium Chloride 20 Meq Packet (For Liquid) PO 40 meq DAILY JACK Administration Rosuvastatin Calcium 5 mg 07/03/25 10:30 07/07/25 08:34 Rosuvastatin 5 Mg Tablet PO 5 mg DAILY JACK Administration Trazodone HCl 100 mg 07/03/25 21:00 07/06/25 21:29 Trazodone Hcl 50 Mg Tablet PO 100 mg HS JACK Administration Vancomycin HCl 125 mg 07/05/25 00:25 07/07/25 05:02 Vancomycin Hcl 125 Mg Oral Capsule PO 08/26/25 00:24 125 mg Q6HR JACK Administration Radiology Results: ITS Impressions Abdomen/Pelvis CT 07/03/25 06:11 IMPRESSION: 1. Abnormally thickened left colon consistent with colitis, most likely infectious/inflammatory. 2: Patchy reticulonodular densities left lower lobe with associated 7 mm nodule, most likely infectious/inflammatory. Recommend follow-up CT in 3 months to assess for resolution. Head CT 07/03/25 07:00 IMPRESSION: 1. No acute intracranial abnormality. 2: Chronic right lacunar infarction. 3: Mild sinus disease. Carotid Doppler Study 07/04/25 11:50 IMPRESSION: 1. <50% stenosis in the right internal carotid artery. 2. <50% stenosis in the left internal carotid artery. Brain MRI 07/04/25 12:35 IMPRESSION: 1. Aging brain with chronic old lacunar infarct at the right caudate nucleus. No acute intracranial process or abnormally enhancing brain lesions. Labs Labs: Laboratory Results - last 24 hr 07/06/25 07/07/25 22:22 05:11 WBC 10.3 H RBC 3.36 L Hgb 10.4 L Hct 31.2 L MCV 92.9 MCH 31.0 MCHC 33.3 RDW 14.7 H Plt Count 203 MPV 10.0 Sodium 138 Potassium 3.3 L 3.3 L Chloride 110 H Carbon Dioxide 20 L Anion Gap 8 BUN < 2 L Creatinine 0.55 L Estim Creat Clear Calc 67 Estimated GFR > 60 Glucose 93 Calcium 8.5 Quality VTE Prophylaxis VTE prophylaxis: mechanical ordered
--- NOTE | 2025-07-07 09:45 | PCRCNOTE ---
Pt called for PRN treatment. When therapist arrived to give treatment pt was sleeping. No treatment given at this time.
--- NOTE | 2025-07-07 10:50 | PCNFU ---
Nutrition Follow-Up Complete: Unintentional weight loss related to colitis as evidenced by weight loss 13%/5 months Goal:Diet advancement Intakes >75% Pt meeting goal. Pt current nutrition is NPO for colonscopy today, was heart healthy diet with overall good intake per nursing. Nutrition recommendation: resume diet post procedure, add banatrol due to c.diff Last recorded weight is 61.3 kg. Bowel Motility: +BM 07/07 Labs Reviewed: Hgb:10.4, HCT:31, alb:2.7, K:3.3, Cr:0.55 Meds Noted: protonix, KCL Skin: WNL Additional Notes: pt was on a heart healthy diet, intake good per nursing. NPO today for colonscopy. Noted pt with c.diff. Recommend to resume diet post procedure and add banatrol BID. Monitoring diet orders, intakes, weights, labs, plan of care Follow up in 5 days
[2025-07-07] MEDS: IPRATROPIUM 0.5 MG/ALBUTEROL SULFATE 2.5 MG AMPUL.NEB 3 ML INHALATION (11:09)
[2025-07-07] MEDS: SULFAMETHOXAZOLE/TRIMETHOPRIM 800/160 MG DS TABLET 1 TAB PO ×2 (11:32→20:04)
--- NOTE | 2025-07-07 13:05 | P.PNAN_ITS ---
Anes - Initial Pre Proc Eval Procedure: Operation Date: 07/07/25 15:00 Proposed Procedures p Diagnostic Colonoscopy - Teodoro Covarrubias MD Date/Time: 07/07/25 13:05 Surgeon: Joseph Baker MD Pre Op Diagnosis: Acute colitis, Left-Sided pneumonia, Failure to th Patient Data Age: 70 Gender: F Height: 1.52 m Weight: 61.3 kg Last Vital Signs Temp 36.8 C 07/07/25 04:55 Pulse 92 07/07/25 11:16 Resp 20 07/07/25 11:16 BP 133/79 07/07/25 04:55 Pulse Ox 95 07/07/25 11:10 O2 Del Method Room Air 07/07/25 11:10 O2 Flow Rate 2 07/04/25 22:10 Allergies Allergy/AdvReac Type Severity Reaction Status Date / Time ciprofloxacin Allergy Unknown Rash Verified 07/07/25 13:00 Home Medications ?Medication ?Instructions ?Recorded ?Confirmed ?Type omeprazole 20 mg capsule,delayed 20 mg PO DAILY 06/10/21 07/03/25 History release rosuvastatin 5 mg tablet 5 mg PO DAILY 06/10/21 07/03/25 History trazodone 50 mg tablet 100 mg PO HS 06/10/21 07/03/25 History albuterol sulfate 90 mcg/actuation 2 puff inhalation Q4-6H PRN 01/05/24 07/03/25 Rx aerosol inhaler shortness of breath or wheezing 30 days #8.5 grams OLAZAPINE 20 mg BYMOUTH DAILY 01/17/25 07/03/25 History Laboratory Tests 07/04/25 07/06/25 07/07/25 18:23 22:22 05:11 WBC 10.3 H K/mm3 (4.5-10.0) RBC 3.36 L M/mm3 (4.2-5.4) Hgb 10.4 L g/dL (12.0-15.0) Hct 31.2 L % (37.0-47.0) MCV 92.9 fl (80-100) MCH 31.0 pg (26-34) MCHC 33.3 g/dl (32-36) RDW 14.7 H % (11.5-14.5) Plt Count 203 k/mm3 (150-375) MPV 10.0 fl (7.4-10.4) Sodium 138 mmol/L (137-145) Potassium 3.3 L mmol/L 3.3 L mmol/L (3.4-5.0) (3.4-5.0) Chloride 110 H mmol/L (98-107) Carbon Dioxide 20 L mmol/L (22-30) Anion Gap 8 mmol/L (4-12) BUN < 2 L mg/dL (7-17) Creatinine 0.55 L mg/dL (0.7-1.0) Estim Creat Clear Calc 67 ml/min Estimated GFR > 60 (59 - ) Glucose 93 mg/dL (65-110) Calcium 8.5 mg/dL (8.4-10.2) Stool Calprotectin Pending Patient hx anesthesia problems: none Family hx anesthesia problems: none Results Review: All pre-operative results and documents have been reviewed as part of the pre- operative evaluation. [facility] Past Medical History Medical History Hyperlipidemia Other abnormalities of gait and mobility Urinary tract infection Colitis Tobacco dependence Peripheral neuropathy due to chemotherapy Degenerative disc disease Gastroesophageal reflux disease Hypertension Chronic obstructive pulmonary disease Hepatitis C Treated in 2007. Ovarian cancer Skin cancer Anemia Anxiety Depression Arthritis Asthma Emphysema of lung Surgical History Surgical History History of laminectomy History of repair of right rotator cuff History of open reduction and internal fixation (ORIF) procedure Ankle fracture. History of tonsillectomy History of appendectomy History of hysterectomy History of lumpectomy of left breast Family History Family History Mother Family history of malignant neoplasm Family history of heart disease in male family member before age 55 Sibling Family history of malignant neoplasm of brain Father Family history of emphysema Social History Social History Social History: Surrogate decision maker: Sai Martinez, son. Code status: Full code. Smoking packs per day: 1 Smoking cigarettes per day: 20.0 Years smoked: 55 Smoking pack-years: 55.00 Smoking status: Current every day smoker Second hand tobacco smoke exposure: No Additional smoking assessment comments: Down to 3-5 cigarettes/day. last was on Monday06/30/25. Alcohol intake: former Alcohol use details: Drinks socially and in moderation. Substance use: unknown Substance use type: marijuana and painkillers Other substance usage details: Uses a few times a week. Lack of Transportation: No Lack of Food: Never True Current Housing: I Have Housing Concerned About Future Housing: No Difficulty Paying Gas/Electric Bills: No Difficulty Paying for Meds: No Currently Unemployed: No Education: High School Diploma/GED Difficulty w/ Childcare or Family Care: No Living arrangements: alone Additional living arrangements comments: The patient lives in a senior apartment in [place]. Additional occupation/education comments: Retired. Spiritual care concerns: No Anes - Eval Final PreProcedure Day of Procedure 07/07/25 13:05 Patient weight: overweight Heart: regular rate and rhythm Lungs: clear to auscultation Airway: Mallampati scale class II Neurological: alert and oriented Last oral intake: >/= 8 hours ASA classification: IV Emergent: no Anesthetic plan: proceed Anesthesia type and monitoring: general GIVS and standard monitoring Results Review: All pre-operative results and documents have been reviewed as part of the pre- operative evaluation. Informed Consent: The patient's anesthetic plan and its attendant risks and benefits were discussed with the patient/family/POA. Questions were solicited and answers provided to the satisfaction of the patient/family/POA.
[2025-07-07] MEDS: LACTATED RINGERS 1,000 ML 150 ML IV CONT (13:16)
--- NOTE | 2025-07-07 14:57 | S_PTH ---
PATIENT: Myriam Martinez LOC: [id number] U#:[id number] AGE/SX: 70/F ROOM: 312 RE07/03/[address]: Jim Watson MD : [id number] BED: 01 DIS: 07/10/2025 SPEC #: [id number] RECD: 07/08/25 08:04 STATUS: MEGHNARosemary REKatie #: [id number] PETER: 07/07/25 14:[address]: Teodoro Covarrubias DEPT: [facility] Surgical RECD BY: Lida Milner ENTERED: 07/08/25 08:05 SP TYPE: Surgical OTHR DR: MD Joseph Patterson MD Maria A Cuartas, MONO Myrick, RESEARCH ASSOCIATE-C Tissues: A - Colon Polypectomy B - Colon Polypectomy C - Colon Polypectomy D - Colon Biopsy Procedures: Hematoxylin and Eosin Stain Gross and Microscopic Level 4
--- NOTE | 2025-07-07 15:03 | WPDGIPROGNO ---
Progress Note: A&P Assessment and Plan (1) Left sided colitis: Code(s): K51.50 - Left sided colitis without complications Status: Acute Assessment and Plan: See colonoscopy report. Several benign polyps found, all removed. Recommended colonoscopy in 3 years. Focal left sided colitis, probably recovering mild ischemic, no specific treatment needed. The patient can continue being treated as per hospitalist and oncology teams. Subjective Date/time seen: 07/07/25 15:03 Objective Data Vital Signs Vital Signs: Vital Signs - 24 hr 07/06/25 16:00 07/06/25 20:00 07/06/25 20:25 Temperature 96.6 F L Pulse Rate 88 95 100 Respiratory Rate 20 Blood Pressure 144/86 H Pulse Oximetry 93 Oxygen Delivery 07/07/25 00:00 07/07/25 04:00 07/07/25 04:55 Temperature 98.3 F Pulse Rate 91 94 89 Respiratory Rate 18 Blood Pressure 133/79 Pulse Oximetry 93 Oxygen Delivery 07/07/25 08:00 07/07/25 08:00 07/07/25 11:10 Temperature Pulse Rate 74 93 Respiratory Rate 20 Blood Pressure Pulse Oximetry 95 Oxygen Delivery Room Air Room Air 07/07/25 11:10 07/07/25 11:16 07/07/25 13:18 Temperature 97.8 F Pulse Rate 93 92 87 Respiratory Rate 20 20 14 Blood Pressure 135/84 Pulse Oximetry 93 Oxygen Delivery Room Air Intake/Output Intake/Output: Intake & Output 07/04/25 07/05/25 07/06/25 07/07/25 23:59 23:59 23:59 23:59 Intake Total 3770 3935 2710 300 Balance 3770 3935 2710 300 Meds/Results Medications: Active Medications Generic Name Dose Route Start Last Admin Trade Name Freq PRN Reason Stop Dose Admin Acetaminophen 650 mg 07/03/25 04:58 07/04/25 17:35 Acetaminophen 325 Mg Tablet PO 650 mg Q4H PRN Administration Mild Pain (1-3) or Fever Albuterol 2.5 mg 07/03/25 10:26 Albuterol Sulfate Neb 2.5 Mg/3 Ml Inh INHALATION Q4HRT PRN Shortness Of Breath Albuterol/Ipratropium 3 ml 07/05/25 11:43 07/07/25 11:09 Ipratropium 0.5 Mg/Albuterol Sulfate 2.5 Mg Ampul.Neb 3 Ml INHALATION 3 ml Q6HRT PRN Administration Shortness Of Breath Benzonatate 100 mg 07/05/25 06:00 07/07/25 11:32 Benzonatate 100 Mg Capsule PO 100 mg Q6H JACK Administration Sodium Chloride 1,000 mls @ 50 mls/hr 07/03/25 11:05 07/06/25 20:11 Normal Saline Iv IV CONT 50 mls/hr .Q20H JACK Administration Lactated Ringer's 1,000 mls @ 150 mls/hr 07/07/25 13:15 07/07/25 14:55 Lr - Lactated Ringers Iv IV CONT 150 mls/hr .Q6H40M JACK Infusion Lorazepam 0.5 mg 07/04/25 08:12 07/07/25 05:02 Lorazepam (*Crx) 0.5 Mg Tablet PO 0.5 mg Q6H PRN Administration Anxiety Magnesium Oxide 400 mg 07/04/25 10:40 07/07/25 08:33 Magnesium Oxide 400 Mg Tablet PO 400 mg DAILY JACK Administration Morphine Sulfate 2 mg 07/03/25 04:58 07/07/25 08:37 Morphine Sulfate (*Crx) 2 Mg/Ml Inj IV PUSH 2 mg Q2H PRN Administration Pain Rated 7-10 Nicotine 1 patch 07/03/25 11:20 07/07/25 08:36 Nicotine (*Pbkc) 21 Mg Patch TRANSDERM 1 patch DAILY JACK Administration Ondansetron HCl 4 mg 07/03/25 04:58 Ondansetron Inj 4 Mg/2 Ml Vial IV PUSH Q4H PRN Nausea Pantoprazole Sodium 40 mg 07/03/25 10:30 07/07/25 08:33 Pantoprazole 40 Mg Tablet PO 08/03/25 10:29 40 mg DAILY JACK Administration Potassium Chloride 40 meq 07/04/25 10:40 07/07/25 08:34 Potassium Chloride 20 Meq Packet (For Liquid) PO 40 meq DAILY JACK Administration Rosuvastatin Calcium 5 mg 07/03/25 10:30 07/07/25 08:34 Rosuvastatin 5 Mg Tablet PO 5 mg DAILY JACK Administration Trazodone HCl 100 mg 07/03/25 21:00 07/06/25 21:29 Trazodone Hcl 50 Mg Tablet PO 100 mg HS JACK Administration Trimethoprim/Sulfamethoxazole 1 tab 07/07/25 12:00 07/07/25 11:32 Sulfamethoxazole/Trimethoprim 800/160 Mg Ds Tablet PO 07/09/25 21:01 1 tab Q12HR JACK Administration Vancomycin HCl 125 mg 07/05/25 00:25 07/07/25 11:32 Vancomycin Hcl 125 Mg Oral Capsule PO 07/15/25 00:24 125 mg Q6HR JACK Administration Radiology Results: ITS Impressions Abdomen/Pelvis CT 07/03/25 06:11 IMPRESSION: 1. Abnormally thickened left colon consistent with colitis, most likely infectious/inflammatory. 2: Patchy reticulonodular densities left lower lobe with associated 7 mm nodule, most likely infectious/inflammatory. Recommend follow-up CT in 3 months to assess for resolution. Head CT 07/03/25 07:00 IMPRESSION: 1. No acute intracranial abnormality. 2: Chronic right lacunar infarction. 3: Mild sinus disease. Carotid Doppler Study 07/04/25 11:50 IMPRESSION: 1. <50% stenosis in the right internal carotid artery. 2. <50% stenosis in the left internal carotid artery. Brain MRI 07/04/25 12:35 IMPRESSION: 1. Aging brain with chronic old lacunar infarct at the right caudate nucleus. No acute intracranial process or abnormally enhancing brain lesions. Labs Labs: Laboratory Results - last 24 hr 07/06/25 07/07/25 22:22 05:11 WBC 10.3 H RBC 3.36 L Hgb 10.4 L Hct 31.2 L MCV 92.9 MCH 31.0 MCHC 33.3 RDW 14.7 H Plt Count 203 MPV 10.0 Sodium 138 Potassium 3.3 L 3.3 L Chloride 110 H Carbon Dioxide 20 L Anion Gap 8 BUN < 2 L Creatinine 0.55 L Estim Creat Clear Calc 67 Estimated GFR > 60 Glucose 93 Calcium 8.5
[2025-07-07] MEDS: POTASSIUM CHLORIDE INJ 40 MEQ in SODIUM CHLORIDE 0.9% IV 500 ML 130 MEQ IVPB (15:43)
[2025-07-08] VITALS (10 sets, daily range): BP systolic 97–125; BP diastolic 61–76; PULSE 85–120; RESP 16–20; TEMP 35.9–36.5; O2SAT 93–96
[2025-07-08] MEDS: MORPHINE SULFATE (*CRX) 2 MG/ML INJ IV PUSH ×3 (04:02→10:14)
[2025-07-08] MEDS: LORazepam (*CRX) 0.5 MG TABLET PO ×4 (04:09→22:01)
[2025-07-08] MEDS: VANCOMYCIN HCL 125 MG ORAL CAPSULE PO ×4 (05:37→23:01)
[2025-07-08] MEDS: BENZONATATE 100 MG CAPSULE PO ×4 (05:38→23:01)
[2025-07-08 06:09] LABS: Hematocrit 31.2 % (37.0-47.0); Hemoglobin 10.1 g/dL (12.0-15.0); Mean Corpuscular HGB Conc 32.4 g/dl (32-36); Mean Corpuscular Hemoglobin 29.9 pg (26-34); Mean Corpuscular Volume 92.3 fl (80-100); Platelet Count Result 211 k/mm3 (150-375); Red Blood Count 3.38 M/mm3 (4.2-5.4); White Blood Count 8.5 K/mm3 (4.5-10.0)
[2025-07-08 06:34] LABS: Anion Gap 6 mmol/L (4-12); Calcium 8.7 mg/dL (8.4-10.2); Carbon Dioxide 21 mmol/L (22-30); Chloride 110 mmol/L (98-107); Estimated CRCL calculation 62 ml/min; Estimated Glomerular Filt Rate > 60; Glucose 88 mg/dL (65-110); Potassium 3.8 mmol/L (3.4-5.0); Sodium 137 mmol/L (137-145)
[2025-07-08 06:40] LABS: Blood Urea Nitrogen < 2 mg/dL (7-17)
[2025-07-08] MEDS: PANTOPRAZOLE 40 MG TABLET PO (07:55)
[2025-07-08] MEDS: MAGNESIUM OXIDE 400 MG TABLET PO (07:55)
[2025-07-08] MEDS: ROSUVASTATIN 5 MG TABLET PO (07:55)
[2025-07-08] MEDS: SULFAMETHOXAZOLE/TRIMETHOPRIM 800/160 MG DS TABLET 1 TAB PO ×2 (07:56→20:12)
[2025-07-08] MEDS: POTASSIUM CHLORIDE 20 MEQ PACKET (FOR LIQUID) 40 MEQ PO (07:56)
[2025-07-08] MEDS: IPRATROPIUM 0.5 MG/ALBUTEROL SULFATE 2.5 MG AMPUL.NEB 3 ML INHALATION (08:07)
--- NOTE | 2025-07-08 10:37 | PC.NURSE ---
Sharon Barreto [employer] notified of patient c/o severe back pain and neuropathy in both legs, requiring morphine iv q2h.
[2025-07-08] MEDS: LIDOCAINE 5% PATCH 1 PATCH TRANSDERM (11:06)
--- NOTE | 2025-07-08 11:43 | P.PNIM_ITS ---
Progress Note: A&P Assessment and Plan (1) Chronic obstructive pulmonary disease: Code(s): J44.9 - Chronic obstructive pulmonary disease, unspecified Status: Chronic Assessment and Plan: * Duoneb Q6 hrs * PRN Albuterol Q4hrs Dyspnea/SOB. * Supplemental Oxygen * Monitor sats and wean as appropriate * stable- no acute issues (2) Aspiration pneumonitis: Code(s): J69.0 - Pneumonitis due to inhalation of food and vomit Status: Acute Assessment and Plan: * Not meeting Sepsis criteria * Zosyn Q6 hrs * Continue Duonebs and Albuterol * Supplemental oxygen * Trend labs and VS. * Wean oxygen as able to. * will continue for now * * stable * downgrade to Bactrum to cover UTI - end date 07/09/25 (3) Hypoxemia requiring supplemental oxygen: Code(s): R09.02 - Hypoxemia; Z99.81 - Dependence on supplemental oxygen Status: Acute Assessment and Plan: * See #2 and 3. (4) Colitis: Code(s): K52.9 - Noninfective gastroenteritis and colitis, unspecified Status: Acute Assessment and Plan: * Continue Zosyn and Flagyl * As evidenced by CT Scan abd and pelvis and independently reviewed by this provider. * Consult GI in the setting of pt's hx of colon cancer with no surveillance in the past 6 years. (5) Urinary tract infection: Code(s): N39.0 - Urinary tract infection, site not specified Status: Acute Assessment and Plan: * Continue Zosyn * Urine culture is pending. * downgraded to bactrum - end date 07/09/25 (6) Other abnormalities of gait and mobility: Code(s): R26.89 - Other abnormalities of gait and mobility Status: Acute Assessment and Plan: * Fall Precautions * PT/OT consult and treat (7) History of colon cancer: Code(s): Z85.038 - Personal history of other malignant neoplasm of large intestine Status: Deleted Assessment and Plan: * Last chemo was in 2019, her cancer was mets from the Ovaries. * Consult GI as pt now has acute Colitis. * * 07/07 colonoscopy (8) Tobacco dependence: Code(s): F17.200 - Nicotine dependence, unspecified, uncomplicated Status: Chronic Assessment and Plan: * Nicotine patch (9) Hyperlipidemia: Code(s): E78.5 - Hyperlipidemia, unspecified Status: Acute Assessment and Plan: * Continue Statin therapy. (10) Gastroesophageal reflux disease: Code(s): K21.9 - Gastro-esophageal reflux disease without esophagitis Status: Chronic Assessment and Plan: * Continue PPI therapy with Omeprazole. (11) C. difficile diarrhea: Code(s): A04.72 - Enterocolitis due to Clostridium difficile, not specified as recurrent Status: Acute Assessment and Plan: vanc started overnight po for positive c diff contact isolation PO vanc - end date 07/15/25 care coordination following for po vanc (12) Back pain: Code(s): M54.9 - Dorsalgia, unspecified Status: Acute Assessment and Plan: reported back pain to RN no incontinence, no fever, able to move ok, just c/o back pain will order xray for eval Marion po PRN, lidocaine patch will stop morphine for now Time Spent With Patient Time with patient: Greater than 35 minutes Subjective Date/time seen: 07/08/25 0830 Interval history: This is a 70 year old female pt with PMH of Tobacco Dependence, Peripheral Neuropathy due to Chemotherapy last dosed in 2018, DDD, GERD, HTN, COPD, Hep C, Anemia, Anxiety, Depression, Arthritis, and Ovarian CA with METS to colon with last chemo in 2019 who lives independently at a senior apartment presented admitted with complaints of N/V/D and weakness. Colonoscopy today, 07/07 07/08 pt is c/o back pain now. Of note- she didnot report this to me when i examined her but rather to RN who communicated this to me. Pt requiring MOrphine IV to control pain. pt reports to me no diarrhea. Care coordination working on clearing vanc for outpt to continue tx for cdif. neuropathy is bothering her as well but she didnot have her meds in am yet. Review of Systems Review of Systems: reports back pain today to RN All systems reviewed & are unremarkable except as noted in HPI and below Exam Narrative: no new neurological findings this am. pt is comfortable Const: General: comfortable and no acute distress Other: Elderly female pt lying supine at this time in no acute distress. HENMT: Face/Nose/Sinus: Normal nares present Eyes: General: appearance normal, both eyes and all related structures Neck: Neck: supple and no JVD Lymphatic: lymphadenopathy not noted Resp: Effort & Inspection: normal respiratory effort Auscultation: rhonchi (Coarse rhonchi bilaterally ) Cardio: Rate: regular rate Rhythm: regular rhythm Heart sounds: no gallops, no murmurs and no rubs GI: Auscultation: normal bowel sounds Skin: General skin exam: normal color, no rashes or lesions noted and no erythema Wounds: no wounds Neuro: Speech: normal speech Motor exam (neuro): Abnormal motor strength present (Generalized, non-focal weakness) Sensory Exam: No normal sensation (PN of BLE ) Extrem: General: normal to inspection, no edema and no pedal edema Psych: Mental Status: mental status grossly normal Affect: normal affect Objective Data Vital Signs Vital Signs: Vital Signs - 24 hr 07/07/25 12:00 07/07/25 13:18 07/07/25 14:56 Temperature 97.8 F Pulse Rate 105 H 87 96 Respiratory Rate 14 17 Blood Pressure 135/84 99/68 L Pulse Oximetry 93 94 Oxygen Delivery Room Air Room Air 07/07/25 15:06 07/07/25 15:16 07/07/25 15:50 Temperature 96.5 F L Pulse Rate 92 93 89 Respiratory Rate 14 20 17 Blood Pressure 113/75 128/84 117/47 L Pulse Oximetry 94 95 96 Oxygen Delivery Room Air Room Air 07/07/25 20:00 07/07/25 21:30 07/08/25 04:55 Temperature 96.2 F L 97.7 F Pulse Rate 98 90 Respiratory Rate 18 18 Blood Pressure 119/66 112/76 Pulse Oximetry 94 93 Oxygen Delivery Room Air 07/08/25 08:00 07/08/25 08:00 07/08/25 08:08 Temperature Pulse Rate 120 H 99 Respiratory Rate 20 Blood Pressure Pulse Oximetry 96 Oxygen Delivery Room Air 07/08/25 08:09 07/08/25 08:15 Temperature Pulse Rate 102 H 87 Respiratory Rate 20 Blood Pressure Pulse Oximetry 96 Oxygen Delivery Room Air Intake/Output Intake/Output: Intake & Output 07/05/25 07/06/25 07/07/25 07/08/25 23:59 23:59 23:59 23:59 Intake Total 3935 2710 840 340 Balance 3935 2710 840 340 Meds/Results Medications: Active Medications Generic Name Dose Route Start Last Admin Trade Name Freq PRN Reason Stop Dose Admin Acetaminophen 650 mg 07/03/25 04:58 07/04/25 17:35 Acetaminophen 325 Mg Tablet PO 650 mg Q4H PRN Administration Mild Pain (1-3) or Fever Hydrocodone Bitart/Acetaminophen 1 tab 07/08/25 10:30 Hydrocodone/Acetaminophen (*Crx) 7.5-325 Mg Tablet PO Q6H PRN Pain Rated 7-10 Albuterol 2.5 mg 07/03/25 10:26 Albuterol Sulfate Neb 2.5 Mg/3 Ml Inh INHALATION Q4HRT PRN Shortness Of Breath Albuterol/Ipratropium 3 ml 07/05/25 11:43 07/08/25 08:07 Ipratropium 0.5 Mg/Albuterol Sulfate 2.5 Mg Ampul.Neb 3 Ml INHALATION 3 ml Q6HRT PRN Administration Shortness Of Breath Benzonatate 100 mg 07/05/25 06:00 07/08/25 11:06 Benzonatate 100 Mg Capsule PO 100 mg Q6H JACK Administration Lidocaine 1 patch 07/08/25 09:00 07/08/25 11:06 Lidocaine 5% Patch TRANSDERM 1 patch DAILY JACK Administration Lorazepam 0.5 mg 07/04/25 08:12 07/08/25 10:10 Lorazepam (*Crx) 0.5 Mg Tablet PO 0.5 mg Q6H PRN Administration Anxiety Magnesium Oxide 400 mg 07/04/25 10:40 07/08/25 07:55 Magnesium Oxide 400 Mg Tablet PO 400 mg DAILY JACK Administration Nicotine 1 patch 07/03/25 11:20 07/08/25 07:55 Nicotine (*Pbkc) 21 Mg Patch TRANSDERM Not Given DAILY JACK Ondansetron HCl 4 mg 07/03/25 04:58 Ondansetron Inj 4 Mg/2 Ml Vial IV PUSH Q4H PRN Nausea Pantoprazole Sodium 40 mg 07/03/25 10:30 07/08/25 07:55 Pantoprazole 40 Mg Tablet PO 08/03/25 10:29 40 mg DAILY JACK Administration Potassium Chloride 40 meq 07/04/25 10:40 07/08/25 07:56 Potassium Chloride 20 Meq Packet (For Liquid) PO 40 meq DAILY JACK Administration Rosuvastatin Calcium 5 mg 07/03/25 10:30 07/08/25 07:55 Rosuvastatin 5 Mg Tablet PO 5 mg DAILY JACK Administration Tramadol HCl 50 mg 07/08/25 10:30 Tramadol Hcl (*Crx) 50 Mg Tablet PO Q6H PRN Pain Rated 4-6 Trazodone HCl 100 mg 07/03/25 21:00 07/07/25 20:05 Trazodone Hcl 50 Mg Tablet PO 100 mg HS JACK Administration Trimethoprim/Sulfamethoxazole 1 tab 07/07/25 12:00 07/08/25 07:56 Sulfamethoxazole/Trimethoprim 800/160 Mg Ds Tablet PO 07/09/25 21:01 1 tab Q12HR JACK Administration Vancomycin HCl 125 mg 07/05/25 00:25 07/08/25 11:06 Vancomycin Hcl 125 Mg Oral Capsule PO 07/15/25 00:24 125 mg Q6HR JACK Administration Radiology Results: ITS Impressions Abdomen/Pelvis CT 07/03/25 06:11 IMPRESSION: 1. Abnormally thickened left colon consistent with colitis, most likely infectious/inflammatory. 2: Patchy reticulonodular densities left lower lobe with associated 7 mm nodule, most likely infectious/inflammatory. Recommend follow-up CT in 3 months to assess for resolution. Head CT 07/03/25 07:00 IMPRESSION: 1. No acute intracranial abnormality. 2: Chronic right lacunar infarction. 3: Mild sinus disease. Carotid Doppler Study 07/04/25 11:50 IMPRESSION: 1. <50% stenosis in the right internal carotid artery. 2. <50% stenosis in the left internal carotid artery. Brain MRI 07/04/25 12:35 IMPRESSION: 1. Aging brain with chronic old lacunar infarct at the right caudate nucleus. No acute intracranial process or abnormally enhancing brain lesions. Lumbar Spine X-Ray 07/08/25 11:15 IMPRESSION: 1. Bony irregularity of the superior endplate of the L1 vertebral body with 25% vertebral body height loss. The finding is new as compared to the MRI of the lumbar spine from 2019. A compression fracture of indeterminate age is suspected. If concern for an acute compression fracture, consider an MRI of the lumbar spine for further assessment. 2. Extensive degenerative change in the mid and lower lumbar spine. 3. Grade 1 anterolisthesis of L3 on L4. Labs Labs: Laboratory Results - last 24 hr 07/08/25 05:18 WBC 8.5 RBC 3.38 L Hgb 10.1 L Hct 31.2 L MCV 92.3 MCH 29.9 MCHC 32.4 RDW 15.1 H Plt Count 211 MPV 9.8 Sodium 137 Potassium 3.8 Chloride 110 H Carbon Dioxide 21 L Anion Gap 6 BUN < 2 L Creatinine 0.59 L Estim Creat Clear Calc 62 Estimated GFR > 60 Glucose 88 Calcium 8.7 Quality VTE Prophylaxis VTE prophylaxis: mechanical ordered
[2025-07-08] MEDS: HYDROcodone/acetaminophen (*CRX) 7.5-325 MG TABLET 1 TAB PO ×2 (12:55→18:50)
[2025-07-08] MEDS: traMADol HCL (*CRX) 50 MG TABLET PO (16:02)
[2025-07-08] MEDS: LORazepam INJ (*CRX) 2 MG/ML VIAL 0.5 MG IV PUSH (16:34)
[2025-07-09] VITALS (12 sets, daily range): BP systolic 105–124; BP diastolic 60–64; PULSE 81–108; RESP 16–20; TEMP 36.2–36.4; O2SAT 90–99
[2025-07-09] MEDS: VANCOMYCIN HCL 125 MG ORAL CAPSULE PO ×4 (05:05→23:24)
[2025-07-09] MEDS: BENZONATATE 100 MG CAPSULE PO ×4 (05:05→23:24)
[2025-07-09] MEDS: LORazepam (*CRX) 0.5 MG TABLET PO ×4 (05:05→23:25)
[2025-07-09] MEDS: HYDROcodone/acetaminophen (*CRX) 7.5-325 MG TABLET 1 TAB PO ×4 (05:05→23:26)
[2025-07-09] MEDS: ALBUTEROL SULFATE NEB 2.5 MG/3 ML INH INHALATION (05:18)
[2025-07-09] MEDS: IPRATROPIUM 0.5 MG/ALBUTEROL SULFATE 2.5 MG AMPUL.NEB 3 ML INHALATION ×2 (05:19→21:56)
[2025-07-09 06:03] LABS: Hematocrit 32.3 % (37.0-47.0); Hemoglobin 10.7 g/dL (12.0-15.0); Mean Corpuscular HGB Conc 33.1 g/dl (32-36); Mean Corpuscular Hemoglobin 30.9 pg (26-34); Mean Corpuscular Volume 93.4 fl (80-100); Platelet Count Result 272 k/mm3 (150-375); Red Blood Count 3.46 M/mm3 (4.2-5.4); White Blood Count 9.9 K/mm3 (4.5-10.0)
[2025-07-09 06:23] LABS: Anion Gap 7 mmol/L (4-12); Blood Urea Nitrogen 4 mg/dL (7-17); Calcium 9.2 mg/dL (8.4-10.2); Carbon Dioxide 22 mmol/L (22-30); Chloride 108 mmol/L (98-107); Estimated CRCL calculation 55 ml/min; Estimated Glomerular Filt Rate > 60; Glucose 94 mg/dL (65-110); Potassium 4.2 mmol/L (3.4-5.0); Sodium 137 mmol/L (137-145)
[2025-07-09] MEDS: SULFAMETHOXAZOLE/TRIMETHOPRIM 800/160 MG DS TABLET 1 TAB PO ×2 (08:15→21:42)
[2025-07-09] MEDS: MAGNESIUM OXIDE 400 MG TABLET PO (08:15)
[2025-07-09] MEDS: ROSUVASTATIN 5 MG TABLET PO (08:15)
[2025-07-09] MEDS: PANTOPRAZOLE 40 MG TABLET PO (08:15)
[2025-07-09] MEDS: POTASSIUM CHLORIDE 20 MEQ PACKET (FOR LIQUID) 40 MEQ PO (08:15)
--- NOTE | 2025-07-09 11:19 | PC.NURSE ---
Dr Watson notified of patient requesting medication for neuropathy in hands and legs.
[2025-07-09] MEDS: PREGABALIN (*CRX) 75 MG CAPSULE PO ×2 (11:27→21:42)
--- NOTE | 2025-07-09 16:06 | P.PNIM_ITS ---
Progress Note: A&P Assessment and Plan (1) Chronic obstructive pulmonary disease: Code(s): J44.9 - Chronic obstructive pulmonary disease, unspecified Status: Chronic Assessment and Plan: * Duoneb Q6 hrs * PRN Albuterol Q4hrs Dyspnea/SOB. * Supplemental Oxygen * Monitor sats and wean as appropriate * stable- no acute issues (2) Aspiration pneumonitis: Code(s): J69.0 - Pneumonitis due to inhalation of food and vomit Status: Acute Assessment and Plan: * Not meeting Sepsis criteria * Zosyn Q6 hrs * Continue Duonebs and Albuterol * Supplemental oxygen * Trend labs and VS. * Wean oxygen as able to. * will continue for now * * stable * completed antibiotics (3) Hypoxemia requiring supplemental oxygen: Code(s): R09.02 - Hypoxemia; Z99.81 - Dependence on supplemental oxygen Status: Acute Assessment and Plan: * See #2 and 3. (4) Colitis: Code(s): K52.9 - Noninfective gastroenteritis and colitis, unspecified Status: Acute Assessment and Plan: * Completed antibiotics * As evidenced by CT Scan abd and pelvis and independently reviewed by this provider. * Consult GI in the setting of pt's hx of colon cancer with no surveillance in the past 6 years. (5) Urinary tract infection: Code(s): N39.0 - Urinary tract infection, site not specified Status: Acute Assessment and Plan: * Completed antibiotics * Urine culture negative * (6) Other abnormalities of gait and mobility: Code(s): R26.89 - Other abnormalities of gait and mobility Status: Acute Assessment and Plan: * Fall Precautions * PT/OT consult and treat (7) History of colon cancer: Code(s): Z85.038 - Personal history of other malignant neoplasm of large intestine Status: Deleted Assessment and Plan: * Last chemo was in 2019, her cancer was mets from the Ovaries. * Consult GI as pt now has acute Colitis. * * 07/07 colonoscopy (8) Tobacco dependence: Code(s): F17.200 - Nicotine dependence, unspecified, uncomplicated Status: Chronic Assessment and Plan: * Nicotine patch (9) Hyperlipidemia: Code(s): E78.5 - Hyperlipidemia, unspecified Status: Acute Assessment and Plan: * Continue Statin therapy. (10) Gastroesophageal reflux disease: Code(s): K21.9 - Gastro-esophageal reflux disease without esophagitis Status: Chronic Assessment and Plan: * Continue PPI therapy with Omeprazole. (11) C. difficile diarrhea: Code(s): A04.72 - Enterocolitis due to Clostridium difficile, not specified as recurrent Status: Acute Assessment and Plan: vanc started overnight po for positive c diff contact isolation PO vanc - end date 07/15/25 care coordination following for po vanc (12) Back pain: Code(s): M54.9 - Dorsalgia, unspecified Status: Acute Assessment and Plan: reported back pain no incontinence, no fever, able to move ok, just c/o back pain Lumbar MRI:Relatively recent L1 burst fracture with 20% central vertebral body height loss and up to 4 mm retropulsion contributing to new mild central canal stenosis at this level. [place] po PRN, lidocaine patch Subjective Date/time seen: 07/09/25 16:06 Interval history: This is a 70 year old female pt with PMH of Tobacco Dependence, Peripheral Neuropathy due to Chemotherapy last dosed in 2019, DDD, GERD, HTN, COPD, Hep C, Anemia, Anxiety, Depression, Arthritis, and Ovarian CA with METS to colon with last chemo in 2019 who lives independently at a senior apartment presented admitted with complaints of N/V/D and weakness. Colonoscopy today, 07/07 07/08 pt is c/o back pain now. Of note- she didnot report this to me when i examined her but rather to RN who communicated this to me. Pt requiring MOrphine IV to control pain. pt reports to me no diarrhea. Care coordination working on clearing vanc for outpt to continue tx for cdif. neuropathy is bothering her as well but she didnot have her meds in am yet. 07/09/25 Patient was seen examined at bedside. Complaining of back pain, complain of neuropathy in both legs. Also patient she is weak and cannot walk easily. Started on Lyrica. PT OT ordered to re-evaluate patient. Possible discharge tomorrow pending PT OT recommendation. Review of Systems Review of Systems: reports back pain today to RN All systems reviewed & are unremarkable except as noted in HPI and below Exam Narrative: no new neurological findings this am. pt is comfortable Const: General: comfortable and no acute distress Other: Elderly female pt lying supine at this time in no acute distress. HENMT: Face/Nose/Sinus: Normal nares present Eyes: General: appearance normal, both eyes and all related structures Neck: Neck: supple and no JVD Lymphatic: lymphadenopathy not noted Resp: Effort & Inspection: normal respiratory effort Auscultation: rhonchi (Coarse rhonchi bilaterally ) Cardio: Rate: regular rate Rhythm: regular rhythm Heart sounds: no gallops, no murmurs and no rubs GI: Auscultation: normal bowel sounds Skin: General skin exam: normal color, no rashes or lesions noted and no erythema Wounds: no wounds Neuro: Speech: normal speech Motor exam (neuro): Abnormal motor strength present (Generalized, non-focal weakness) Sensory Exam: No normal sensation (PN of BLE ) Extrem: General: normal to inspection, no edema and no pedal edema Psych: Mental Status: mental status grossly normal Affect: normal affect Objective Data Vital Signs Vital Signs: Vital Signs - 24 hr 07/08/25 20:00 07/08/25 20:00 07/08/25 20:15 Temperature 96.7 F L Pulse Rate 85 92 Respiratory Rate 16 Blood Pressure 97/61 L Pulse Oximetry 93 Oxygen Delivery Room Air 07/09/25 00:00 07/09/25 04:00 07/09/25 05:19 Temperature Pulse Rate 81 90 102 H Respiratory Rate 20 Blood Pressure Pulse Oximetry Oxygen Delivery 07/09/25 05:20 07/09/25 08:00 07/09/25 08:00 Temperature 97.2 F L Pulse Rate 97 86 Respiratory Rate 20 Blood Pressure 124/61 Pulse Oximetry 90 93 Oxygen Delivery Room Air 07/09/25 12:00 Temperature Pulse Rate 108 H Respiratory Rate Blood Pressure Pulse Oximetry Oxygen Delivery Intake/Output Intake/Output: Intake & Output 07/06/25 07/07/25 07/08/25 07/09/25 23:59 23:59 23:59 23:59 Intake Total 2710 840 922 590 Output Total 300 Balance 2710 840 922 290 Meds/Results Medications: Active Medications Generic Name Dose Route Start Last Admin Trade Name Freq PRN Reason Stop Dose Admin Acetaminophen 650 mg 07/03/25 04:58 07/04/25 17:35 Acetaminophen 325 Mg Tablet PO 650 mg Q4H PRN Administration Mild Pain (1-3) or Fever Hydrocodone Bitart/Acetaminophen 1 tab 07/08/25 10:30 07/09/25 10:49 Hydrocodone/Acetaminophen (*Crx) 7.5-325 Mg Tablet PO 1 tab Q6H PRN Administration Pain Rated 7-10 Albuterol 2.5 mg 07/03/25 10:26 07/09/25 05:18 Albuterol Sulfate Neb 2.5 Mg/3 Ml Inh INHALATION 2.5 mg Q4HRT PRN Administration Shortness Of Breath Albuterol/Ipratropium 3 ml 07/05/25 11:43 07/09/25 05:19 Ipratropium 0.5 Mg/Albuterol Sulfate 2.5 Mg Ampul.Neb 3 Ml INHALATION 3 ml Q6HRT PRN Administration Shortness Of Breath Benzonatate 100 mg 07/05/25 06:00 07/09/25 11:26 Benzonatate 100 Mg Capsule PO 100 mg Q6H JACK Administration Lidocaine 1 patch 07/08/25 09:00 07/09/25 08:14 Lidocaine 5% Patch TRANSDERM Not Given DAILY JACK Lorazepam 0.5 mg 07/04/25 08:12 07/09/25 10:49 Lorazepam (*Crx) 0.5 Mg Tablet PO 0.5 mg Q6H PRN Administration Anxiety Magnesium Oxide 400 mg 07/04/25 10:40 07/09/25 08:15 Magnesium Oxide 400 Mg Tablet PO 400 mg DAILY JACK Administration Nicotine 1 patch 07/03/25 11:20 07/09/25 08:14 Nicotine (*Pbkc) 21 Mg Patch TRANSDERM Not Given DAILY JACK Ondansetron HCl 4 mg 07/03/25 04:58 Ondansetron Inj 4 Mg/2 Ml Vial IV PUSH Q4H PRN Nausea Pantoprazole Sodium 40 mg 07/03/25 10:30 07/09/25 08:15 Pantoprazole 40 Mg Tablet PO 08/03/25 10:29 40 mg DAILY JACK Administration Potassium Chloride 40 meq 07/04/25 10:40 07/09/25 08:15 Potassium Chloride 20 Meq Packet (For Liquid) PO 40 meq DAILY JACK Administration Pregabalin 75 mg 07/09/25 11:20 07/09/25 11:27 Pregabalin (*Crx) 75 Mg Capsule PO 75 mg Q12HR JACK Administration Rosuvastatin Calcium 5 mg 07/03/25 10:30 07/09/25 08:15 Rosuvastatin 5 Mg Tablet PO 5 mg DAILY JACK Administration Tramadol HCl 50 mg 07/08/25 10:30 07/08/25 16:02 Tramadol Hcl (*Crx) 50 Mg Tablet PO 50 mg Q6H PRN Administration Pain Rated 4-6 Trazodone HCl 100 mg 07/03/25 21:00 07/08/25 20:11 Trazodone Hcl 50 Mg Tablet PO 100 mg HS JACK Administration Trimethoprim/Sulfamethoxazole 1 tab 07/07/25 12:00 07/09/25 08:15 Sulfamethoxazole/Trimethoprim 800/160 Mg Ds Tablet PO 07/09/25 21:01 1 tab Q12HR JACK Administration Vancomycin HCl 125 mg 07/05/25 00:25 07/09/25 11:27 Vancomycin Hcl 125 Mg Oral Capsule PO 07/15/25 00:24 125 mg Q6HR JACK Administration Radiology Results: ITS Impressions Abdomen/Pelvis CT 07/03/25 06:11 IMPRESSION: 1. Abnormally thickened left colon consistent with colitis, most likely infectious/inflammatory. 2: Patchy reticulonodular densities left lower lobe with associated 7 mm nodule, most likely infectious/inflammatory. Recommend follow-up CT in 3 months to assess for resolution. Head CT 07/03/25 07:00 IMPRESSION: 1. No acute intracranial abnormality. 2: Chronic right lacunar infarction. 3: Mild sinus disease. Carotid Doppler Study 07/04/25 11:50 IMPRESSION: 1. <50% stenosis in the right internal carotid artery. 2. <50% stenosis in the left internal carotid artery. Brain MRI 07/04/25 12:35 IMPRESSION: 1. Aging brain with chronic old lacunar infarct at the right caudate nucleus. No acute intracranial process or abnormally enhancing brain lesions. Lumbar Spine X-Ray 07/08/25 11:15 IMPRESSION: 1. Bony irregularity of the superior endplate of the L1 vertebral body with 25% vertebral body height loss. The finding is new as compared to the MRI of the lumbar spine from 2019. A compression fracture of indeterminate age is suspected. If concern for an acute compression fracture, consider an MRI of the lumbar spine for further assessment. 2. Extensive degenerative change in the mid and lower lumbar spine. 3. Grade 1 anterolisthesis of L3 on L4. Lumbar Spine MRI 07/08/25 17:09 IMPRESSION: 1. Relatively recent L1 burst fracture with 20% central vertebral body height loss and up to 4 mm retropulsion contributing to new mild central canal stenosis at this level. 2. Otherwise unchanged severe lumbar spondylosis. 3. 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 Labs Labs: Laboratory Results - last 24 hr 07/09/25 05:26 WBC 9.9 RBC 3.46 L Hgb 10.7 L Hct 32.3 L MCV 93.4 MCH 30.9 MCHC 33.1 RDW 15.0 H Plt Count 272 MPV 9.8 Sodium 137 Potassium 4.2 Chloride 108 H Carbon Dioxide 22 Anion Gap 7 BUN 4 L Creatinine 0.68 L Estim Creat Clear Calc 55 Estimated GFR > 60 Glucose 94 Calcium 9.2 Quality VTE Prophylaxis VTE prophylaxis: mechanical ordered
[2025-07-10] VITALS: PULSE 88
[2025-07-10 04:00] VITALS: PULSE 82
[2025-07-10 05:05] VITALS: BP 100/60; PULSE 88; RESP 14; TEMP 36.4; O2SAT 93
[2025-07-10 06:08] LABS: Hematocrit 33.8 % (37.0-47.0); Hemoglobin 10.8 g/dL (12.0-15.0); Mean Corpuscular HGB Conc 32.0 g/dl (32-36); Mean Corpuscular Hemoglobin 30.2 pg (26-34); Mean Corpuscular Volume 94.4 fl (80-100); Platelet Count Result 285 k/mm3 (150-375); Red Blood Count 3.58 M/mm3 (4.2-5.4); White Blood Count 7.7 K/mm3 (4.5-10.0)
[2025-07-10] MEDS: BENZONATATE 100 MG CAPSULE PO ×2 (06:18→11:34)
[2025-07-10] MEDS: VANCOMYCIN HCL 125 MG ORAL CAPSULE PO ×2 (06:18→11:34)
[2025-07-10] MEDS: HYDROcodone/acetaminophen (*CRX) 7.5-325 MG TABLET 1 TAB PO ×2 (06:21→11:59)
[2025-07-10] MEDS: LORazepam (*CRX) 0.5 MG TABLET PO ×2 (06:21→11:59)
[2025-07-10 06:36] LABS: Anion Gap 7 mmol/L (4-12); Blood Urea Nitrogen 8 mg/dL (7-17); Calcium 9.1 mg/dL (8.4-10.2); Carbon Dioxide 23 mmol/L (22-30); Chloride 106 mmol/L (98-107); Estimated CRCL calculation 42 ml/min; Estimated Glomerular Filt Rate > 60; Glucose 89 mg/dL (65-110); Potassium 4.1 mmol/L (3.4-5.0); Sodium 136 mmol/L (137-145)
[2025-07-10 08:00] VITALS: PULSE 84; O2SAT 93
[2025-07-10] MEDS: ROSUVASTATIN 5 MG TABLET PO (08:12)
[2025-07-10] MEDS: POTASSIUM CHLORIDE 20 MEQ PACKET (FOR LIQUID) 40 MEQ PO (08:12)
[2025-07-10] MEDS: PANTOPRAZOLE 40 MG TABLET PO (08:12)
[2025-07-10] MEDS: PREGABALIN (*CRX) 75 MG CAPSULE PO (08:12)
[2025-07-10] MEDS: MAGNESIUM OXIDE 400 MG TABLET PO (08:12)
--- NOTE | 2025-07-10 10:07 | P.DS_ITS ---
DS: Admitting Diagnosis Discharge Date 07/10/25 Admitting Diagnosis diarrhea, colitis DS: Discharge Diagnosis Discharge Diagnosis (1) Chronic obstructive pulmonary disease: Code(s): J44.9 - Chronic obstructive pulmonary disease, unspecified Status: Chronic Assessment and Plan: * Duoneb Q6 hrs * PRN Albuterol Q4hrs Dyspnea/SOB. * Supplemental Oxygen * Monitor sats and wean as appropriate * stable- no acute issues (2) Aspiration pneumonitis: Code(s): J69.0 - Pneumonitis due to inhalation of food and vomit Status: Acute Assessment and Plan: * Not meeting Sepsis criteria * completed Abx * Continue Duonebs and Albuterol * Supplemental oxygen * Trend labs and VS. * Wean oxygen as able to. * will continue for now * * stable * completed antibiotics (3) Hypoxemia requiring supplemental oxygen: Code(s): R09.02 - Hypoxemia; Z99.81 - Dependence on supplemental oxygen Status: Acute Assessment and Plan: * See #2 and 3. (4) Colitis: Code(s): K52.9 - Noninfective gastroenteritis and colitis, unspecified Status: Acute Assessment and Plan: * Completed antibiotics * As evidenced by CT Scan abd and pelvis and independently reviewed by this provider. * Consult GI in the setting of pt's hx of colon cancer with no surveillance in the past 6 years. had colonoscopy. (5) Urinary tract infection: Code(s): N39.0 - Urinary tract infection, site not specified Status: Acute Assessment and Plan: * Completed antibiotics * Urine culture negative * (6) Other abnormalities of gait and mobility: Code(s): R26.89 - Other abnormalities of gait and mobility Status: Acute Assessment and Plan: * Fall Precautions * PT/OT consult and treat (7) History of colon cancer: Code(s): Z85.038 - Personal history of other malignant neoplasm of large intestine Status: Deleted Assessment and Plan: * Last chemo was in 2019, her cancer was mets from the Ovaries. * * * 07/07 colonoscopy (8) Tobacco dependence: Code(s): F17.200 - Nicotine dependence, unspecified, uncomplicated Status: Chronic Assessment and Plan: * Nicotine patch (9) Hyperlipidemia: Code(s): E78.5 - Hyperlipidemia, unspecified Status: Acute Assessment and Plan: * Continue Statin therapy. (10) Gastroesophageal reflux disease: Code(s): K21.9 - Gastro-esophageal reflux disease without esophagitis Status: Chronic Assessment and Plan: * Continue PPI therapy with Omeprazole. (11) C. difficile diarrhea: Code(s): A04.72 - Enterocolitis due to Clostridium difficile, not specified as recurrent Status: Acute Assessment and Plan: vanc po for positive c diff contact isolation PO vanc - end date 07/15/25 care coordination following for po vanc (12) Back pain: Code(s): M54.9 - Dorsalgia, unspecified Status: Acute Assessment and Plan: reported back pain no incontinence, no fever, able to move ok, just c/o back pain Lumbar MRI:Relatively recent L1 burst fracture with 20% central vertebral body height loss and up to 4 mm retropulsion contributing to new mild central canal stenosis at this level. [place] po PRN, lidocaine patch DS: Summary Hospital Course Hospital Course: This is a 70 year old female pt with PMH of Tobacco Dependence, Peripheral Neuropathy due to Chemotherapy last dosed in 2018, DDD, GERD, HTN, COPD, Hep C, Anemia, Anxiety, Depression, Arthritis, and Ovarian CA with METS to colon with last chemo in 2018 who lives independently at a senior apartment presented admitted with complaints of N/V/D and weakness. she was diagnosed with Cdiff diarrhea and started on vancomycin po and diarrhea gradually improved Colonoscopy, 07/07, some polyps. follow up in 3 years 07/08 pt is c/o back pain now. Pt received pain meds neuropathy is bothering her as well , received Lyrica concern for pneumonia and uti started on Zosyn. U/C neg. patient completed treatment and improved. 07/10/25 Patient was seen and examined bedside. She is feeling better. Denies any chest pain, shortness a risk of the pain, nausea vomiting. Back pain is under better control. Complained of neuropathy. Has been started on Lyrica. PT OT on board reccomenede rehab but patient refused. Patient requesting to be discharged home. Status at Discharge Overall status at discharge: patient is progressing back to baseline Time Spent with Patient Time attestation: Total time spent providing and/or coordinating discharge services: Time spent: Greater than 30 minutes Exam Narrative: no new neurological findings this am. pt is comfortable Const: General: comfortable and no acute distress Other: Elderly female pt lying supine at this time in no acute distress. HENMT: Face/Nose/Sinus: Normal nares present Eyes: General: appearance normal, both eyes and all related structures Neck: Neck: supple and no JVD Lymphatic: lymphadenopathy not noted Resp: Effort & Inspection: normal respiratory effort Auscultation: rhonchi (Coarse rhonchi bilaterally ) Cardio: Rate: regular rate Rhythm: regular rhythm Heart sounds: no gallops, no murmurs and no rubs GI: Auscultation: normal bowel sounds Skin: General skin exam: normal color, no rashes or lesions noted and no erythema Wounds: no wounds Neuro: Speech: normal speech Motor exam (neuro): Abnormal motor strength present (Generalized, non-focal weakness) Sensory Exam: No normal sensation (PN of BLE ) Extrem: General: normal to inspection, no edema and no pedal edema Psych: Mental Status: mental status grossly normal Affect: normal affect DS: Data Data Completed and Pending Completed studies during hospitalization: Pending at discharge 07/07/25 14:57 Surgical [PTH] Routine Labs on day of discharge: Labs from last 24 hours 07/10/25 05:13 WBC 7.7 RBC 3.58 L Hgb 10.8 L Hct 33.8 L MCV 94.4 MCH 30.2 MCHC 32.0 RDW 15.1 H Plt Count 285 MPV 9.3 Sodium 136 L Potassium 4.1 Chloride 106 Carbon Dioxide 23 Anion Gap 7 BUN 8 Creatinine 0.90 Estim Creat Clear Calc 42 Estimated GFR > 60 Glucose 89 Calcium 9.1 Preliminary micro results at discharge 07/04/25 18:23 Stool for WBCs - Preliminary Stool Discharge Plan Discharge Attending physician on discharge: Jim Watson Consulting providers: Myriam Myrick; Teodoro Covarrubias; Ethan Yoder; Jim Watson Discharging Clinician: Jim Watson Anticipated Discharge Date/Time: 07/10/25 09:58 Patient Disposition: Home Activity: as tolerated Diet: heart healthy Discharge Instructions: follow with PCP in one week check your blood pressure and heart rate regularly and report to the PCP Continue vancomycin for C diff repeat colonoscopy in [address] showed : Patchy reticulonodular densities left lower lobe with associated 7 mm nodule, most likely infectious/inflammatory. Recommend follow-up CT in 3 months to assess for resolution Patient Instructions: Antibiotic Form, Pain Management in Older Adults (DC), C. Diff (Clostridioides Difficile) Infection (DC) Patient Language: [place] Stand Alone Forms: General Discharge Information Follow-up/Referrals: Ethan Yoder MD [Physician, Hematology] - Call for Appointment Ki,MONO Craig [Primary Care Provider, Family Practice] - 1 Week Discharge Medications: New hydrocodone-acetaminophen 7.5-325 mg Tablet 1 tablet PO Q6H PRN (Reason: Pain Rated 7-10) Qty: 15 0RF pregabalin [Lyrica] 75 mg Capsule 75 mg PO Q12HR Qty: 60 0RF acetaminophen 325 mg Tablet 650 mg PO Q4H PRN (Reason: Mild Pain (1-3) Or Fever) Qty: 30 0RF vancomycin 125 mg Capsule 125 mg PO Q6HR Qty: 20 0RF Continued albuterol sulfate 90 mcg/actuation HFA aerosol inhaler 2 puff inhalation Q4-6H PRN (Reason: shortness of breath or wheezing) 30 Days Qty: 8.5 0RF OLAZAPINE 20 mg 20 mg BYMOUTH DAILY trazodone 50 mg tablet 100 mg PO HS rosuvastatin 5 mg tablet 5 mg PO DAILY Changed omeprazole 20 mg Capsule,Delayed Release(Dr/Ec) 40 mg PO DAILY Qty: 30 0RF Date of admission: 07/03/25 04:58 Primary Care Provider: KiSalima Admitting Provider: Joseph Baker Attending physician on admission: Joseph Baker Condition: Stable Quality VTE Prophylaxis VTE prophylaxis: mechanical ordered
[2025-07-10 12:00] VITALS: PULSE 101
--- NOTE | 2025-07-11 08:36 | P.CDI_ITS ---
CDI Query Clarification Request 1) Please specify status of COPD, if known. * Exacerbation of COPD * No exacerbation/stable COPD * Other * Unable to determine 2) Please review the clinical information below and clarify the respiratory diagnosis the patient is being treated for: * Hypoxia or hypoxemia without respiratory failure * Respiratory distress without respiratory failure * Acute respiratory failure with hypoxia * Acute respiratory failure with hypercapnia * Acute respiratory failure with hypoxia and hypercapnia * Acute on chronic respiratory failure with hypoxia * Acute on chronic respiratory failure with hypercapnia * Acute on chronic respiratory failure with hypoxia and hypercapnia * Acute respiratory distress syndrome (ARDS) * Chronic respiratory failure with hypoxia * Chronic respiratory failure with hypercapnia * Chronic respiratory failure with hypoxia and hypercapnia * Other explanation clinical findings, please specify * Unable to determine She is back from CT scan and had an episode where she was profoundly hypoxemic to 82% possibly another aspiration event. She was improved with positioning and supplemental oxygen currently on 2 L nasal cannula improved to 99%. After returning from CT Scan she had an episode where she was found to be extremely hypoxic and it was suspected that she aspirated at that time. She is requiring supplemental oxygenation now for her breathing. Labs showing Leukocytosis at 15.7 with elevated Neuts, Cr normal and BUN slightly high at 26 indicating a degree of deyhdration, Lactic acid of 1.4, and Elevated CPK at 554 as a result of her laying on the floor for a prolonged period of time. Her Urine is indicative of a likely UTI as well with 3+ Leuk Esterase and >100 WBCs D/C note: (1) Chronic obstructive pulmonary disease: Code(s): J44.9 - Chronic obstructive pulmonary disease, unspecified Status: Chronic Assessment and Plan: * Duoneb Q6 hrs * PRN Albuterol Q4hrs Dyspnea/SOB. * Supplemental Oxygen * Monitor sats and wean as appropriate * stable- no acute issues(2) Aspiration pneumonitis: Code(s): J69.0 - Pneumonitis due to inhalation of food and vomit Status: Acute Assessment and Plan: * Not meeting Sepsis criteria * completed Abx * Continue Duonebs and Albuterol * Supplemental oxygen * Trend labs and VS. * Wean oxygen as able to. * will continue for now * * stable * completed antibiotics (3) Hypoxemia requiring supplemental oxygen: Code(s): R09.02 - Hypoxemia; Z99.81 - Dependence on supplemental oxygen Status: Acute Assessment and Plan: * See #2 and 3. <Zeenat Weldon RN - Last Filed: 07/11/25 08:42> Clarified Diagnosis Clarified Diagnosis: not exacerbation of COPD. likely lung cancer. biopsy pending <Jim Watson MD - Last Filed: 07/11/25 16:48>
--- NOTE | 2025-07-11 08:36 | WPDCDIQUERY2 ---
CDI Query Clarification Request 1) Please specify status of COPD, if known. Exacerbation of COPD No exacerbation/stable COPD Other Unable to determine 2) Please review the clinical information below and clarify the respiratory diagnosis the patient is being treated for: Hypoxia or hypoxemia without respiratory failure Respiratory distress without respiratory failure Acute respiratory failure with hypoxia Acute respiratory failure with hypercapnia Acute respiratory failure with hypoxia and hypercapnia Acute on chronic respiratory failure with hypoxia Acute on chronic respiratory failure with hypercapnia Acute on chronic respiratory failure with hypoxia and hypercapnia Acute respiratory distress syndrome (ARDS) Chronic respiratory failure with hypoxia Chronic respiratory failure with hypercapnia Chronic respiratory failure with hypoxia and hypercapnia Other explanation clinical findings, please specify Unable to determine She is back from CT scan and had an episode where she was profoundly hypoxemic to 82% possibly another aspiration event. She was improved with positioning and supplemental oxygen currently on 2 L nasal cannula improved to 99%. After returning from CT Scan she had an episode where she was found to be extremely hypoxic and it was suspected that she aspirated at that time. She is requiring supplemental oxygenation now for her breathing. Labs showing Leukocytosis at 15.7 with elevated Neuts, Cr normal and BUN slightly high at 26 indicating a degree of deyhdration, Lactic acid of 1.4, and Elevated CPK at 554 as a result of her laying on the floor for a prolonged period of time. Her Urine is indicative of a likely UTI as well with 3+ Leuk Esterase and >100 WBCs D/C note: (1) Chronic obstructive pulmonary disease: Code(s): J44.9 - Chronic obstructive pulmonary disease, unspecified Status: Chronic Assessment and Plan: Duoneb Q6 hrs PRN Albuterol Q4hrs Dyspnea/SOB. Supplemental Oxygen Monitor sats and wean as appropriate stable- no acute issues(2) Aspiration pneumonitis: Code(s): J69.0 - Pneumonitis due to inhalation of food and vomit Status: Acute Assessment and Plan: Not meeting Sepsis criteria completed Abx Continue Duonebs and Albuterol Supplemental oxygen Trend labs and VS. Wean oxygen as able to. will continue for now stable completed antibiotics (3) Hypoxemia requiring supplemental oxygen: Code(s): R09.02 - Hypoxemia; Z99.81 - Dependence on supplemental oxygen Status: Acute Assessment and Plan: See #2 and 3. <Zeenat Weldon RN - Last Filed: 07/11/25 08:42> Clarified Diagnosis Clarified Diagnosis: not exacerbation of COPD. likely lung cancer. biopsy pending <Jim Watson MD - Last Filed: 07/11/25 16:48>
== END 2025-07-10 15:04 | disposition home health service (06) | DRG 178 ==
LOC: ANHED 07-03 03:57 → ANH3MEDSUR 07-03 05:15
PROVIDERS: Internal Medicine Gastroenterology; Internal Medicine Hematology & Oncology; Nurse Practitioner; Nurse Practitioner Adult Health; Admitting Provider Family Medicine; Emergency Provider Student in an Organized Health Care Education/Training Program; PCP Physician Assistant; Visit Provider Internal Medicine
PROC: 0DJD8ZZ Inspection of Lower Intestinal Tract, Via Natural or Artificial Opening Endoscopic (ICD-10-PCS; CPT 45378; principal; 2025-07-07 15:00)
DX: J69.0 Pneumonitis due to inhalation of food and vomit (principal); A04.72 Enterocolitis due to Clostridium difficile, not specified as recurrent; N39.0 Urinary tract infection, site not specified; K51.50 Left sided colitis without complications; M62.82 Rhabdomyolysis; R09.02 Hypoxemia; J44.9 Chronic obstructive pulmonary disease, unspecified; K21.9 Gastro-esophageal reflux disease without esophagitis; R91.1 Solitary pulmonary nodule; I10 Essential (primary) hypertension; E86.0 Dehydration; D64.9 Anemia, unspecified; G62.0 Drug-induced polyneuropathy; T45.1X5A Adverse effect of antineoplastic and immunosuppressive drugs, initial encounter; K63.5 Polyp of colon; D12.3 Benign neoplasm of transverse colon; D12.2 Benign neoplasm of ascending colon; E78.5 Hyperlipidemia, unspecified; F41.9 Anxiety disorder, unspecified; F32.A Depression, unspecified; M19.90 Unspecified osteoarthritis, unspecified site; F17.210 Nicotine dependence, cigarettes, uncomplicated; M54.9 Dorsalgia, unspecified; K59.03 Drug induced constipation; T40.2X5A Adverse effect of other opioids, initial encounter; R26.89 Other abnormalities of gait and mobility; Z85.43 Personal history of malignant neoplasm of ovary; Z99.81 Dependence on supplemental oxygen; Z92.21 Personal history of antineoplastic chemotherapy; Z86.19 Personal history of other infectious and parasitic diseases; Z85.828 Personal history of other malignant neoplasm of skin; Z85.038 Personal history of other malignant neoplasm of large intestine; Z90.49 Acquired absence of other specified parts of digestive tract; Z90.710 Acquired absence of both cervix and uterus
CPT/HCPCS: 36415; 70450; 70553; 72100; 72148; 74177; 80048; 80053; 81001; 82550; 83605; 83690; 83735; 84132; 85025; 85027; 86304; 87040; 87086; 87493; 88305; 89055; 93306; 93880; 94640; 96361; 96374; 96375; 96376; 97161; 97162; 97165; 99285; A9270; A9577; J0456; J0696; J1836; J2003; J2060; J2270; J2405; J2543; J2704; J3480; J7030; J7040; J7050; J7120; Q9967